=== PATIENT | female | born 1945 | race Caucasian/White ===

== ENCOUNTER 2017-06-03 17:28 | Emergency (ER) | payer MEDICARE, MEDICAID ==
[~2017-06-03] VITALS: Ht 165.1 cm; Wt 71.0 kg
[~2017-06-03 17:28] MED LIST: BUDE100T PO; FURO20TA PO; GLIP5 PO; LEVA500T PO; MAGN400T PO; METF500 PO; METO25CR PO; MORP60TA20 PO; PERC10TA27 PO; PLAV75TA PO; POTA20IN3 PO
[2017-06-03 17:32] VITALS: BP 134/76; PULSE 74; RESP 24; TEMP 99.9; O2SAT 93
[2017-06-03] MEDS ORDERED: PERC10TA27 PO (17:56)
[2017-06-03] MEDS ORDERED: MORP1TAB26 PO (17:56)
[2017-06-03] MEDS ORDERED: POTA-163 PO (17:56)
[2017-06-03] MEDS ORDERED: AZIT250T3 PO (17:56)
[2017-06-03] MEDS ORDERED: ATOR10TA15 PO (17:56)
[2017-06-03] MEDS ORDERED: AMLO5TAB2 PO (17:56)
[2017-06-03] MEDS ORDERED: ASPI-516 CHEW (17:56)
[2017-06-03] MEDS ORDERED: METO1TAB42 PO (17:56)
[2017-06-03] MEDS ORDERED: TIOT12.9 INH (17:56)
[2017-06-03] MEDS ORDERED: SODIUM CHLORIDE 0.9% FLUSH 10 ML FLUSH IVF PRN (18:00)
[2017-06-03] MEDS ORDERED: predniSONE 20 MG TAB PO ONE (18:00)
[2017-06-03] MEDS: RESP: ALBUTEROL 2.5 MG/IPRATROPIUM 0.5 MG NEB (SCH) INH ×2 (18:09→18:10)
--- NOTE | 2017-06-03 18:15 | RADRPT ---
EXAM DATE/TIME: 06/03/2017 18:04 [place] COMPARISON: No previous studies available for comparison. INDICATIONS : Short of breath, cough MEDICAL HISTORY : Chronic obstructive pulmonary disease. SURGICAL HISTORY : CABG. ENCOUNTER: Initial ACUITY: 1 day PAIN SCORE: 0/10 LOCATION: Bilateral chest FINDINGS: PA and lateral views of the chest demonstrate the lungs to be hyperaerated without evidence of mass, infiltrate or effusion. The cardiomediastinal contours are unremarkable. Status post CABG. Kyphosis and degenerative changes thoracic spine. Osseous structures are intact. CONCLUSION: 1. Hyperinflation which can be seen with COPD. 2. Status post CABG. Francisco Javier Clement MD on June 03, 2017 at 18:12 Board Certified Radiologist. This report was verified electronically.
[2017-06-03 18:17] VITALS: O2SAT 95
--- NOTE | 2017-06-03 18:21 | PD ---
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 Patient went to her primary care physician Dr. Davison has been taking azithromycin. Treatments at home, no relief. Denies any chest pain, denies any fevers, endorses dry cough. No nausea no vomiting. States symptoms are gradually worsening, moderate in severity, associated signs symptoms and context as above. PFSH Past Medical History Hx Anticoagulant Therapy: Yes Arthritis: Yes Asthma: No Autoimmune Disease: No Blood Disorders: No Heart Rhythm Problems: No Cancer: No Cardiac Catheterization: Yes Cardiovascular Problems: Yes (htn on meds, 5 vessel bypass, [place] x 3) High Cholesterol: Yes Chest Pain: Yes Congestive Heart Failure: No COPD: Yes Coronary Artery Disease: Yes Diabetes: Yes Patient Takes Glucophage: No Diminished Hearing: No Endocrine: Yes Gastrointestinal Disorders: No Genitourinary: No Hiatal Hernia: Yes Hypertension: Yes Immune Disorder: No Implanted Vascular Access Dvce: Yes Musculoskeletal: Yes (osteoporosis) Neurologic: No Psychiatric: No Reproductive: No Respiratory: Yes (copd on oxygen) Pneumonia: Yes Sleep Apnea: No Thyroid Disease: No Tetanus Vaccination: Unknown ?: Not Menopausal: Yes Past Surgical History Abdominal Surgery: Yes (appendectomy, cholecystectomy) Appendectomy: Yes Body Medical Devices: sternal wires from cabg Cardiac Surgery: Yes (5 WAY BIPASS) Cholecystectomy: Yes Coronary Artery Bypass Graft: Yes (X5) Ear Surgery: No Endocrine Surgery: Yes (THYROID) Eye Surgery: No Genitourinary Surgery: No Gynecologic Surgery: Yes (x2 regular ) Neurologic Surgery: No Oral Surgery: Yes (lower dental implants) Thoracic Surgery: Yes Other Surgery: Yes Family History Family Myocardial Infarction: Yes Social History Alcohol Use: No Tobacco Use: Yes (1 PPD) Substance Use: No Allergies-Medications (Allergen,Severity, Reaction): Coded Allergies: penicillin G (Unverified Allergy, Severe, Anaphylaxis, 06/03/17) Reported Meds & Prescriptions Reported Meds & Active Scripts Active Prednisone 20 Mg Tab 60 Mg PO DAILY 5 Days Reported Percocet (Oxycodone-Acetaminophen) 10-325 mg Tab 1 Tab PO Q6H PRN Morphine ER (Morphine Sulfate) 60 Mg Tab 60 Mg PO Q8H Azithromycin 250 Mg Tab 250 Mg PO DIRECTED Take 2 tabs (500 mg) on day 1 then 1 tab daily x 4 days. Aspirin 81 Mg Chew 81 Mg CHEW DAILY Atorvastatin (Atorvastatin Calcium) 10 Mg Tab 10 Mg PO HS Spiriva Respimat Inh (Tiotropium Inh) 2.5 Mcg/Act Aero 2 Puff INH DAILY 2.5 mcg = 1 inhalation Potassium Chloride ER (Potassium Chloride) 20 Meq Tab 20 Meq PO DAILY Amlodipine (Amlodipine Besylate) 5 Mg Tab 5 Mg PO DAILY Metoprolol Succinate ER 24 HR (Metoprolol Succinate) 25 Mg Tab 25 Mg PO DAILY Review of Systems Except as stated in HPI: all other systems reviewed are Neg Physical Exam Narrative GENERAL: Well-developed, well-nourished, speaking in lengthy phrases in short sentences. SKIN: Focused skin assessment warm/dry. HEAD: Atraumatic. Normocephalic. EYES: Pupils equal and round. No scleral icterus. No injection or drainage. ENT: No nasal bleeding or discharge. Mucous membranes pink and moist. TMs clear bilaterally, oropharynx clear moist. NECK: Trachea midline. No JVD. CARDIOVASCULAR: Regular rate and rhythm. No murmur appreciated. RESPIRATORY: No accessory muscle use. Clear to auscultation. Decreased breath sounds throughout all lung amaya but they are clear. Tachypneic, wearing her 2 L nasal cannula. GASTROINTESTINAL: Abdomen soft, non-tender, nondistended. Hepatic and splenic margins not palpable. MUSCULOSKELETAL: No obvious deformities. No clubbing. No cyanosis. No edema. NEUROLOGICAL: Awake and alert. No obvious cranial nerve deficits. Motor grossly within normal limits. Normal speech. PSYCHIATRIC: Appropriate mood and affect; insight and judgment normal. Data Data Last Documented VS Vital Signs Date Time Temp Pulse Resp B/P (MAP) Pulse Ox O2 Delivery O2 Flow Rate FiO2 06/03/17 19:19 98.9 88 19 130/73 (92) 95 Nasal Cannula 2.00 Orders Orders Electrocardiogram (06/03/17 17:52) Basic Metabolic Panel (Bmp) (06/03/17 17:52) Complete Blood Count With Diff (06/03/17 17:52) Chest, Pa & Lat (06/03/17 17:52) Ecg Monitoring (06/03/17 17:52) Iv Access Insert/Monitor (06/03/17 17:52) Oximetry (06/03/17 17:52) Oxygen Administration (06/03/17 17:52) Prednisone (Deltasone) (06/03/17 18:00) Albuterol-Ipratropium Neb (Duoneb Neb) (06/03/17 18:00) Sodium Chloride 0.9% Flush (Ns Flush) (06/03/17 18:00) Resp Blood Gas Venous (06/03/17 ) Blood Gas Venous (Vbg) (06/03/17 18:12) Ed Discharge Order (06/03/17 19:16) Labs Laboratory Tests Test 06/03/17 18:12 06/03/17 18:24 Blood Gas Puncture Site IV Blood Gas Patient Temperature 98.6 Venous Blood pH 7.39 Venous Blood Partial Pressure CO2 54 mmHg Venous Blood Partial Pressure O2 45 mmHg Venous Blood HCO3 32 mmol/L Venous Blood Oxygen Saturation 79 % Venous Blood Oxygen Content 17.4 Vol % Venous Blood Base Excess 6.8 mmol/L Oxygen Delivery Device NASAL CANNULA Blood Gas Liter Flow 2 L/M White Blood Count 8.7 TH/MM3 Red Blood Count 5.41 MIL/MM3 Hemoglobin 15.1 GM/DL Hematocrit 46.8 % Mean Corpuscular Volume 86.6 FL Mean Corpuscular Hemoglobin 27.9 PG Mean Corpuscular Hemoglobin Concent 32.2 % Red Cell Distribution Width 12.6 % Platelet Count 184 TH/MM3 Mean Platelet Volume 7.6 FL Neutrophils (%) (Auto) 76.3 % Lymphocytes (%) (Auto) 11.4 % Monocytes (%) (Auto) 7.8 % Eosinophils (%) (Auto) 1.1 % Basophils (%) (Auto) 3.4 % Neutrophils # (Auto) 6.6 TH/MM3 Lymphocytes # (Auto) 1.0 TH/MM3 Monocytes # (Auto) 0.7 TH/MM3 Eosinophils # (Auto) 0.1 TH/MM3 Basophils # (Auto) 0.3 TH/MM3 CBC Comment DIFF FINAL Differential Comment Blood Urea Nitrogen 10 MG/DL Creatinine 0.69 MG/DL Random Glucose 136 MG/DL Calcium Level 8.8 MG/DL Sodium Level 135 MEQ/L Potassium Level 4.1 MEQ/L Chloride Level 100 MEQ/L Carbon Dioxide Level 30.5 MEQ/L Anion Gap 5 MEQ/L Estimat Glomerular Filtration Rate 84 ML/MIN MDM Medical Decision Making Medical Screen Exam Complete: Yes Emergency Medical Condition: Yes Differential Diagnosis URI, pneumonia, COPD exacerbation. Narrative Course Patient roomed in emergency department, no acute acidosis on VBG, quite responsive to DuoNeb therapy in the emergency department, she is feeling much better like to go home. Chest x-ray clear., Basic labs are unremarkable. She is maintain saturations at 94% plus on her 2 L nasal cannula since duo nebs. Discussed with her symptomatic management follow-up with her primary care physician and return to ED criteria. Will be placed on steroid course. Finish azithromycin until gone. She is stable for discharge. Diagnosis Primary Impression: COPD exacerbation Additional Instructions: Take your azithromycin until gone. Follow up with Dr. Davison this week. Return to ED as needed for worsening SOB or other concerns. Med/Other Pt SpecificInfo: Prescription(s) given Scripts Prednisone (Prednisone) 20 Mg Tab 60 MG PO DAILY for 5 Days, #15 TAB 0 Refills Prov: Darnell Henriquez MD 06/03/17 Disposition: 01 DISCHARGE HOME Condition: Stable Darnell Henriquez MD Jun 03, 2017 18:21
[2017-06-03 18:22] VITALS: O2SAT 95
[2017-06-03 18:35] LABS: AUTOMATED NEUTROPHIL # 6.6 TH/MM3 (1.8-7.7); BASOPHIL # 0.3 TH/MM3 (0-0.2); BASOPHIL % 3.4 % (0.0-2.0); EOSINOPHIL # 0.1 TH/MM3 (0-0.4); EOSINOPHIL % 1.1 % (0.0-4.0); HEMATOCRIT 46.8 % (35.0-46.0); HEMOGLOBIN 15.1 GM/DL (11.6-15.3); LYMPH % 11.4 % (9.0-44.0); MEAN CELL VOLUME 86.6 FL (80.0-100.0); MEAN CORPUSCULAR HEMOGLOBIN 27.9 PG (27.0-34.0); MEAN CORPUSCULAR HGB CONC 32.2 % (32.0-36.0); MEAN PLATELET VOLUME 7.6 FL (7.0-11.0); MONO % 7.8 % (0.0-8.0); MONOCYTE # 0.7 TH/MM3 (0-0.9); NEUT % 76.3 % (16.0-70.0); PLATELET COUNT 184 TH/MM3 (150-450); RED BLOOD COUNT 5.41 MIL/MM3 (4.00-5.30); RED CELL DISTRIBUTION WIDTH 12.6 % (11.6-17.2); WHITE BLOOD COUNT 8.7 TH/MM3 (4.0-11.0)
[2017-06-03 18:41] LABS: CALCIUM 8.8 MG/DL (8.5-10.1)
[2017-06-03 18:42] LABS: BICARBONATE 30.5 MEQ/L (21.0-32.0)
[2017-06-03 18:45] LABS: CREATININE 0.69 MG/DL (0.50-1.00)
[2017-06-03 18:55] VITALS: BP 138/65; PULSE 87; RESP 20; O2SAT 95
[2017-06-03] MEDS ORDERED: PRED20 PO (19:16)
[2017-06-03 19:19] VITALS: BP 130/73; TEMP 98.9
--- NOTE | 2017-06-04 19:45 | EKG ---
Date Performed: 06/03/2017 Time Performed: 18:13:26 PTAGE: 72 years EKG: Sinus rhythm NONSPECIFIC T-WAVE ABNORMALITY BORDERLINE ECG PREVIOUS TRACING : 12/30/2015 13.40 Since previous tracing, no significant change noted DOCTOR: Beckie Rucker Interpretating Date/Time 06/04/2017 19:43:43
== END 2017-06-03 19:28 | disposition home or self-care (01) ==
LOC: PHED 17:28
DX: J44.1 Chronic obstructive pulmonary disease with (acute) exacerbation (principal); I25.2 Old myocardial infarction; I10 Essential (primary) hypertension; E78.00 Pure hypercholesterolemia, unspecified; I25.10 Atherosclerotic heart disease of native coronary artery without angina pectoris; E11.9 Type 2 diabetes mellitus without complications; F17.210 Nicotine dependence, cigarettes, uncomplicated; Z99.81 Dependence on supplemental oxygen; Z79.01 Long term (current) use of anticoagulants; Z95.1 Presence of aortocoronary bypass graft; Z88.0 Allergy status to penicillin
CPT/HCPCS: 71046; 80048; 82805; 85025; 93005; 94640; 94664; 99285; J7512

== ENCOUNTER 2017-10-07 19:02 | Inpatient (IN) | payer MEDICARE, MEDICAID ==
[2017-10-07] VITALS (21 sets, daily range): BP systolic 97–201; BP diastolic 71–120; PULSE 76–115; RESP 20–32; TEMP 98.1–99.5; O2SAT 78–100
[~2017-10-07 19:02] MED LIST changes: +AMLO5TAB2 PO; +ASPI-516 CHEW; +ATOR10TA15 PO; +AZIT250T3 PO; -BUDE100T PO; -FURO20TA PO; -GLIP5 PO; -LEVA500T PO; -MAGN400T PO; -METF500 PO; +METO1TAB42 PO; -METO25CR PO; +MORP1TAB26 PO; -MORP60TA20 PO; -PLAV75TA PO; +POTA-163 PO; -POTA20IN3 PO; +PRED20 PO; +TIOT12.9 INH
--- NOTE | 2017-10-07 19:13 | PD ---
HPI Chief Complaint: Respiratory Symptoms Time Seen by Provider: 19:10 Travel History International Travel<30 days: No Contact w/Intl Traveler<30days: No Traveled to known affect area: No History of Present Illness HPI Patient was rushed in by private vehicle, family member brought her in complaining of severe shortness of breath, not improved by her own home nebulizers, or her home oxygen. Per family member this started about 30-45 minutes prior to arrival and had a sudden onset of severity. According to family she was not complaining of any chest pain or anything along those lines.... However she had been short of breath more than usual over the past 2 days... unable to obtain any further history due to the severity of condition per patient PCP is Dr. Davison Past medical history significant for dental implants, hypertension, 5 vessel CABG bypass, [place] 3, hypercholesterolemia, hypertension, COPD oxygen dependent, pneumonia, sleep apnea, hiatal hernia, appendectomy, cholecystectomy, hypothyroidism, diabetes and currently smokes 1 pack a day. PFSH Past Medical History Hx Anticoagulant Therapy: Yes Arthritis: Yes Asthma: No Autoimmune Disease: No Blood Disorders: No Heart Rhythm Problems: No Cancer: No Cardiac Catheterization: Yes Cardiovascular Problems: Yes (htn on meds, 5 vessel bypass, [place] x 3) High Cholesterol: Yes Chest Pain: Yes Congestive Heart Failure: No COPD: Yes Coronary Artery Disease: Yes Diabetes: Yes Diminished Hearing: No Endocrine: Yes Gastrointestinal Disorders: No Genitourinary: No Hiatal Hernia: Yes Hypertension: Yes Immune Disorder: No Implanted Vascular Access Dvce: Yes Musculoskeletal: Yes (osteoporosis) Neurologic: No Psychiatric: No Reproductive: No Respiratory: Yes (copd on oxygen) Pneumonia: Yes Sleep Apnea: No Thyroid Disease: No Menopausal: Yes Past Surgical History Abdominal Surgery: Yes (appendectomy, cholecystectomy) Appendectomy: Yes Body Medical Devices: sternal wires from cabg Cardiac Surgery: Yes (5 WAY BIPASS) Cholecystectomy: Yes Coronary Artery Bypass Graft: Yes (X5) Ear Surgery: No Endocrine Surgery: Yes (THYROID) Eye Surgery: No Genitourinary Surgery: No Gynecologic Surgery: Yes (x2 regular ) Neurologic Surgery: No Oral Surgery: Yes (lower dental implants) Thoracic Surgery: Yes Other Surgery: Yes Social History Alcohol Use: No Tobacco Use: Yes (1 PPD) Substance Use: No Allergies-Medications (Allergen,Severity, Reaction): Coded Allergies: penicillin G (Unverified Allergy, Severe, Anaphylaxis, 06/03/17) Reported Meds & Prescriptions Reported Meds & Active Scripts Active Prednisone 20 Mg Tab 60 Mg PO DAILY 5 Days Reported Percocet (Oxycodone-Acetaminophen) 10-325 mg Tab 1 Tab PO Q6H PRN Morphine ER (Morphine Sulfate) 60 Mg Tab 60 Mg PO Q8H Azithromycin 250 Mg Tab 250 Mg PO DIRECTED Take 2 tabs (500 mg) on day 1 then 1 tab daily x 4 days. Aspirin 81 Mg Chew 81 Mg CHEW DAILY Atorvastatin (Atorvastatin Calcium) 10 Mg Tab 10 Mg PO HS Spiriva Respimat Inh (Tiotropium Inh) 2.5 Mcg/Act Aero 2 Puff INH DAILY 2.5 mcg = 1 inhalation Potassium Chloride ER (Potassium Chloride) 20 Meq Tab 20 Meq PO DAILY Amlodipine (Amlodipine Besylate) 5 Mg Tab 5 Mg PO DAILY Metoprolol Succinate ER 24 HR (Metoprolol Succinate) 25 Mg Tab 25 Mg PO DAILY Review of Systems ROS Limitations: Clinical Condition General / Constitutional: No: Fever Eyes: No: Visual changes HENT: No: Headaches Cardiovascular: Positive: Tachycardia, Dyspnea on exertion, Other (Diaphoretic) Respiratory: Positive: Shortness of Breath, Wheezing Gastrointestinal: No: Abdominal Pain Genitourinary: No: Dysuria Musculoskeletal: No: Pain Skin: No Rash Neurologic: No: Weakness Psychiatric: No: Depression Endocrine: No: Polydipsia Hematologic/Lymphatic: No: Easy Bruising Physical Exam Exam Limitations: Clinical Condition Narrative GENERAL: Elderly female SKIN: Diffusely diaphoretic HEAD: Atraumatic. Normocephalic. EYES: Pupils equal and round. No scleral icterus. No injection or drainage. ENT: No nasal bleeding or discharge. Mucous membranes pink and moist. NECK: Trachea midline. No JVD. CARDIOVASCULAR: Regular rhythm with tachycardic rate RESPIRATORY: Tachypneic, tripoding, speaking half word dyspnea, intercostal no accessory muscle use. Very tight and very little tidal volume movement , bilateral wheezing GASTROINTESTINAL: Abdomen soft, non-tender, nondistended. Hepatic and splenic margins not palpable. MUSCULOSKELETAL: Extremities without clubbing, cyanosis, or edema. No obvious deformities. NEUROLOGICAL: Awake and alert. No obvious cranial nerve deficits. Motor grossly within normal limits. Five out of 5 muscle strength in the arms and legs. Normal speech. PSYCHIATRIC: Anxious and agitated Data Data Orders Orders Complete Blood Count With Diff (10/07/17 19:10) Comprehensive Metabolic Panel (10/07/17 19:10) B-Type Natriuretic Peptide (10/07/17 19:10) Act Partial Throm Time (Ptt) (10/07/17 19:10) Prothrombin Time / Inr (Pt) (10/07/17 19:10) Magnesium (Mg) (10/07/17 19:10) Ckmb (Isoenzyme) Profile (10/07/17 19:10) Troponin I (10/07/17 19:10) Arterial Blood Gas (Abg) (10/07/17 19:10) Urinalysis - C+S If Indicated (10/07/17 19:10) Influenzae A/B Antigen (10/07/17 19:10) Blood Culture (10/07/17 19:10) Iv Access Insert/Monitor (10/07/17 19:10) Electrocardiogram (10/07/17 19:10) Ecg Monitoring (10/07/17 19:10) Oximetry (10/07/17 19:10) Oxygen Administration (10/07/17 19:10) Chest, Single Ap (10/07/17 19:10) Sodium Chloride 0.9% Flush (Ns Flush) (10/07/17 19:15) Methylprednisolone So Succ Inj (Solumedr (10/07/17 19:15) Albuterol Neb (Albuterol Neb) (10/07/17 19:15) Magnesium Sulfate 1 Gm Premix (Magnesium (10/07/17 19:15) Terbutaline Inj (Brethine Inj) (10/07/17 19:15) Etomidate Inj (Amidate Inj) (10/07/17 19:15) Succinylcholine Inj (Quelicin Inj) (10/07/17 19:15) Propofol 1000 Mg/100 Ml Inj (Diprivan 10 (10/07/17 19:15) Sepsis Workup Initiated (10/07/17 ) Lactic Acid Sepsis Protocol (10/07/17 19:37) Influenzae A/B Antigen (10/07/17 19:37) Blood Culture (10/07/17 19:37) Sputum Culture And Gram Stain (10/07/17 19:37) Pneumococcal Urinary Antigen (10/07/17 19:37) Legionella Urinary Antigen (10/07/17 19:37) Aztreonam Inj (Azactam Inj) (10/07/17 19:37) Levofloxacin 750 Mg Premix Inj (Levaquin (10/07/17 19:37) Urinary Catheter Insert/Apply (10/07/17 19:37) Minor-Gastric Tube Insert/Mon (10/07/17 19:37) CKMB (10/07/17 19:40) CKMB% (10/07/17 19:40) Admit Order (Ed Use Only) (10/07/17 20:52) Albuterol Neb (Albuterol Neb) (10/07/17 21:00) Labs Laboratory Tests Test 10/07/17 19:40 10/07/17 20:20 10/07/17 20:34 White Blood Count 17.8 TH/MM3 Red Blood Count 6.32 MIL/MM3 Hemoglobin 17.5 GM/DL Hematocrit 54.0 % Mean Corpuscular Volume 85.4 FL Mean Corpuscular Hemoglobin 27.7 PG Mean Corpuscular Hemoglobin Concent 32.5 % Red Cell Distribution Width 13.6 % Platelet Count 260 TH/MM3 Mean Platelet Volume 8.6 FL Neutrophils (%) (Auto) 62.7 % Lymphocytes (%) (Auto) 27.5 % Monocytes (%) (Auto) 6.7 % Eosinophils (%) (Auto) 1.7 % Basophils (%) (Auto) 1.4 % Neutrophils # (Auto) 11.2 TH/MM3 Lymphocytes # (Auto) 4.9 TH/MM3 Monocytes # (Auto) 1.2 TH/MM3 Eosinophils # (Auto) 0.3 TH/MM3 Basophils # (Auto) 0.2 TH/MM3 CBC Comment DIFF FINAL Differential Comment Prothrombin Time 10.0 SEC Prothromb Time International Ratio 1.0 RATIO Activated Partial Thromboplast Time 21.0 SEC Blood Urea Nitrogen 9 MG/DL Creatinine 1.10 MG/DL Random Glucose 201 MG/DL Total Protein 8.4 GM/DL Albumin 3.8 GM/DL Calcium Level 9.7 MG/DL Magnesium Level 2.7 MG/DL Alkaline Phosphatase 153 U/L Aspartate Amino Transf (AST/SGOT) 23 U/L Alanine Aminotransferase (ALT/SGPT) 14 U/L Total Bilirubin 0.7 MG/DL Sodium Level 139 MEQ/L Potassium Level 4.6 MEQ/L Chloride Level 102 MEQ/L Carbon Dioxide Level 25.2 MEQ/L Anion Gap 12 MEQ/L Estimat Glomerular Filtration Rate 49 ML/MIN Total Creatine Kinase 117 U/L Creatine Kinase MB 1.6 NG/ML Troponin I LESS THAN 0.02 NG/ML B-Type Natriuretic Peptide 220 PG/ML Urine Color YELLOW Urine Turbidity CLEAR Urine pH 6.0 Urine Specific [place] GREATER/EQUAL 1.030 Urine Protein 100 mg/dL Urine Glucose (UA) 100 mg/dL Urine Ketones NEG mg/dL Urine Occult Blood SMALL Urine Nitrite NEG Urine Bilirubin NEG Urine Urobilinogen 1.0 MG/DL Urine Leukocyte Esterase NEG Urine RBC 3-5 /hpf Urine WBC 6-8 /hpf Urine Squamous Epithelial Cells 0-5 /hpf Urine Bacteria NONE /hpf Urine Coarse Granular Casts 0-2 /lpf Microscopic Urinalysis Comment CATH-CULT NOT IND Lactic Acid Level 2.6 mmol/L MDM Medical Decision Making Medical Screen Exam Complete: Yes Emergency Medical Condition: Yes Medical Record Reviewed: Yes Interpretation(s) Pulse ox with excellent pleth wave was reading 79-80% on 2 L nasal cannula, this is consistent with severe hypoxemic respiratory failure EKG #1 had some baseline motion artifact is difficult to truly interpret with a wandering baseline whether there were any true ST elevations or not, however he was noted to have a sinus rhythm with sinus arrhythmia and some inverted T waves on inferior leads II, III and aVF, a repeat EKG will be performed after patient gets intubated EKG #2 shows a sinus tachycardia 122, incomplete right bundle branch block pattern, negative sgarbossa's criteria, persistent T-wave inversions inferiorly on 2 3 and aVF ABG performed about an hour after intubation. Shows pH of 7.28, PCO2 59.9, PaO2 of 430 and this was on PRBC 18 550 tidal volume 5 of PEEP 100% FiO2.... This findings were consistent with hypercapnic failure and respiratory acidosis , will increase respiratory rate to 22 and ensure that the i.e. ratio is at least 1:4 to minimize volume stacking Differential Diagnosis Hypoxemic respiratory failure versus hypercapnic respiratory failure versus STEMI versus non-STEMI versus pneumonia versus sepsis Narrative Course CBC shows leukocytosis without any left shift however the leukocytosis 18,000. H&H of 17.5/54 shows hemoconcentration., Normal platelet count of 260,000 Coagulation profile is within normal limits Electrolytes are all within normal limits with the exception of GFR 49, grand glucose of 201, alkaline phosphatase of 153, which is not significant. Normal bilirubin normal liver functions. First set of cardiac enzymes negative, beta natruretic peptide 220 which is not consistent with severe CHF and he may be seen in blue bloater type of COPD patients. Lactic acid is currently pending Chest x-ray read by radiologist as COPD, diffuse interstitial prominence which may represent early congestion, satisfactory position of the endotracheal tube and left subclavian central catheter, mild cardiomegaly with evidence of prior CABG, and no evidence of any acute airspace disease or pneumothorax. Critical Care Narrative CRITICAL CARE NOTE: With evaluation of the patient, labs, EKG, receipt of radiologic studies, administration of medications, reevaluation the patient and discussion of the patient with the admitting physicians, the total critical care time was [60] minutes. Time to perform other separately billable procedures was not included in the critical care time. Procedures Procedure Narrative After the risks and benefits were discussed the following procedure was performed: Superior dentures removed prior to intubation, inferior dentures not present edentulous INTUBATION: The patient was put in optimal position for the procedure. Rapid sequence intubation was initiated by me using [20-] milligrams of etomidate IV and [-100] milligrams of [succ-] IV. The patient was intubated with a [7-5] cuffed endotracheal tube. Tube placement was confirmed by visualization of the tube and balloon passing through the cords, capnometry and subsequent chest x- ray. Breath sounds were equal and well aerated bilaterally postintubation. No breath sounds over stomach. Patient tolerated procedure well. Due to patient's critical clinical condition and inability to establish at least 2 working peripheral IVs by multiple nurse at times and with ultrasound- guided peripheral line placement, decision was made to start a left subclavian central line CENTRAL VENOUS LINE: The site was prepped with Betadine and sterilely draped. It was infiltrated with 1% lidocaine plain. The deep vein was cannulated using normal Seldinger technique. A triple lumen central line was placed in the left subclavian site and secured with simple interrupted suture. The site was sterilely dressed. The patient tolerated the procedure well. Diagnosis Primary Impression: acute hypoxemic respiraory failure s/p intubation Disposition: 70 TRANSFER TO OTHER FACILITY Hermes Rivera MD October 07, 2017 19:13
[2017-10-07] MEDS ORDERED: MAGNESIUM SULFATE 1 GM PREMIX 100 ML IV ONE (19:15)
[2017-10-07] MEDS ORDERED: methylPREDNISolone SOD SUCC 125 MG/2 ML VIAL IV PUSH ONE (19:15)
[2017-10-07] MEDS ORDERED: SODIUM CHLORIDE 0.9% FLUSH 10 ML FLUSH IVF PRN (19:15)
[2017-10-07] MEDS ORDERED: ETOMIDATE 20 MG/10 ML VIAL IV PUSH ONE (19:15)
[2017-10-07] MEDS ORDERED: SUCCINYLCHOLINE CHLORIDE 100 MG/5 ML SYRINGE IV PUSH ONE (19:15)
[2017-10-07] MEDS ORDERED: TERBUTALINE INJ 1 MG/ML AMP SQ ONE (19:15)
[2017-10-07] MEDS ORDERED: LEVOFLOXACIN 750 MG PREMIX INJ 150 ML IV STA (19:37)
[2017-10-07] MEDS ORDERED: AZTREONAM INJ 2,000 MG in SODIUM CHLORIDE 0.9% INJ 100 ML IV STA (19:37)
[2017-10-07] MEDS: PROPOFOL 1000 MG/100 ML INJ 100 ML IV PRN ×2 (19:38→22:32)
[2017-10-07] MEDS: RESP: ALBUTEROL 2.5 MG/3 ML NEB (SCH) INH ×3 (19:45→21:32)
[2017-10-07 19:54] LABS: AUTOMATED NEUTROPHIL # 11.2 TH/MM3 (1.8-7.7); BASOPHIL # 0.2 TH/MM3 (0-0.2); BASOPHIL % 1.4 % (0.0-2.0); EOSINOPHIL # 0.3 TH/MM3 (0-0.4); EOSINOPHIL % 1.7 % (0.0-4.0); HEMOGLOBIN 17.5 GM/DL (11.6-15.3); LYMPH % 27.5 % (9.0-44.0); LYMPHOCYTE # 4.9 TH/MM3 (1.0-4.8); MEAN CELL VOLUME 85.4 FL (80.0-100.0); MEAN CORPUSCULAR HEMOGLOBIN 27.7 PG (27.0-34.0); MEAN CORPUSCULAR HGB CONC 32.5 % (32.0-36.0); MEAN PLATELET VOLUME 8.6 FL (7.0-11.0); MONO % 6.7 % (0.0-8.0); MONOCYTE # 1.2 TH/MM3 (0-0.9); NEUT % 62.7 % (16.0-70.0); PLATELET COUNT 260 TH/MM3 (150-450); RED BLOOD COUNT 6.32 MIL/MM3 (4.00-5.30); RED CELL DISTRIBUTION WIDTH 13.6 % (11.6-17.2); WHITE BLOOD COUNT 17.8 TH/MM3 (4.0-11.0)
[2017-10-07 20:01] LABS: CHLORIDE 102 MEQ/L (98-107); SODIUM (NA) 139 MEQ/L (136-145)
[2017-10-07 20:04] LABS: ALBUMIN 3.8 GM/DL (3.4-5.0); BICARBONATE 25.2 MEQ/L (21.0-32.0); CALCIUM 9.7 MG/DL (8.5-10.1); GLUCOSE,RANDOM 201 MG/DL (74-106); MAGNESIUM 2.7 MG/DL (1.5-2.5)
[2017-10-07 20:05] LABS: BLOOD UREA NITROGEN 9 MG/DL (7-18)
[2017-10-07 20:07] LABS: ALT (GPT) 14 U/L (10-53)
[2017-10-07 20:08] LABS: AST (GOT) 23 U/L (15-37); GLOMERULAR FILTRATION RATE 49 ML/MIN (>89)
[2017-10-07 20:09] LABS: TOTAL BILIRUBIN ADULT 0.7 MG/DL (0.2-1.0); TOTAL PROTEIN 8.4 GM/DL (6.4-8.2)
[2017-10-07 20:10] LABS: ALKALINE PHOSPHATASE 153 U/L (45-117)
[2017-10-07 20:13] LABS: TROPONIN I LESS THAN 0.02 NG/ML (0.02-0.05)
--- NOTE | 2017-10-07 20:44 | RADRPT ---
EXAM DATE: 10/07/2017 8:39 PM EDT AGE/SEX: 72 years / Female INDICATIONS: Shortness of breath. Post Intubation, central line placement. CLINICAL DATA: This is the patient's initial encounter. Patient reports that signs and symptoms have been present for 1 day and indicates a pain score of 0/10. MEDICAL/SURGICAL HISTORY: Chronic obstructive pulmonary disease. CABG. COMPARISON: [facility] [place], CHEST SINGLE AP, 12/30/2015. . FINDINGS: Heart is mildly enlarged. Postsurgical changes from prior CABG are noted. Lungs are hyperinflated. There is diffuse interstitial prominence. There is no evidence of consolidat ing airspace disease. Endotracheal and left subclavian central venous catheter are in place and in good position. Osseous structures appear intact CONCLUSION: 1. COPD 2. Diffuse interstitial prominence which may represent early congestion. 3. Satisfactory position of endotracheal tube and left subclavian central venous catheter. 4. Mild cardiomegaly with evidence of prior CABG. 5. No evidence of acute airspace disease or pneumothorax. Electronically signed by: Jose Cortes MD 10/07/2017 8:42 PM EDT
[2017-10-07 21:06] LABS: LACTIC ACID SEPSIS PROTOCOL 2.6 mmol/L (0.4-2.0)
[2017-10-07 21:26] LABS: BILIRUBIN, URINE NEG (NEG); BLOOD, URINE SMALL (NEG); GLUCOSE,URINE 100 mg/dL (NEG); KETONE, URINE NEG (NEG); NITRITE,URINE NEG (NEG); URINE COLOR YELLOW (YELLW/STRAW); URINE LEUKOCYTE ESTERASE NEG (NEG)
[2017-10-07 21:34] LABS: SQUAMOUS EPITHELIAL CELL URINE 0-5 /hpf (0-5)
[2017-10-07] MEDS ORDERED: CHLORHEXIDINE GLUCONATE 2 % 1 PACK (2 CLOTHS)(extra cloths) TOPICAL PRN (23:15)
[2017-10-08] VITALS (25 sets, daily range): BP systolic 115–200; BP diastolic 64–101; PULSE 66–106; RESP 21–81; TEMP 97.6–99.7; O2SAT 96–100
[2017-10-08] MEDS ORDERED: SENNOSIDES 8.6 MG TAB PO PRN (01:00)
[2017-10-08] MEDS ORDERED: LORazepam 2 MG/ML VIAL IV PUSH PRN (01:00)
[2017-10-08] MEDS ORDERED: HYDROmorphone HCL PF 2 MG/ML VIAL IV PUSH PRN (01:00)
[2017-10-08] MEDS ORDERED: LACTULOSE SYRUP 20 GM/30 ML CUP PO PRN (01:00)
[2017-10-08] MEDS ORDERED: BISACODYL 10 MG SUPP RECTAL PRN (01:00)
[2017-10-08] MEDS ORDERED: NURSING INFORMATION XX SCH (01:00)
[2017-10-08] MEDS ORDERED: MAGNESIUM HYDROXIDE SUSP 30 ML CUP PO PRN (01:00)
[2017-10-08] MEDS ORDERED: HEPARIN SODIUM - SQ 10,000 UNITS/ML VIAL SQ SCH (01:00)
[2017-10-08] MEDS ORDERED: SODIUM CHLORIDE 0.9% FLUSH 10 ML FLUSH IV FLUSH PRN (01:00)
[2017-10-08] MEDS ORDERED: CHLORHEXIDINE GLUCONATE 2 % 1 PACK (2 CLOTHS) TOP PRN (01:00)
[2017-10-08] MEDS ORDERED: RESP: ALBUTEROL 2.5 MG/IPRATROPIUM 0.5 MG NEB (PRN) INH (01:00)
[2017-10-08] MEDS ORDERED: ACETAMINOPHEN 325 MG TAB PO PRN (01:00)
[2017-10-08] MEDS: AZITHROMYCIN INJ 500 MG in SODIUM CHLOR 0.9% 250 ML INJ 250 ML IV SCH (02:00)
[2017-10-08] MEDS: SODIUM CHLOR 0.9% 1000 ML INJ 1,000 ML IV SCH ×4 (02:22→22:59)
[2017-10-08] MEDS: CEFEPIME INJ 2,000 MG in SODIUM CHLORIDE 0.9% INJ 100 ML IV SCH ×3 (02:23→20:22)
[2017-10-08] MEDS: niCARdipine 25 MG/NS 250 ML Vial2Bag or IV room IV PRN ×6 (02:38→22:58)
--- NOTE | 2017-10-08 02:50 | RADRPT ---
EXAM DATE: 10/08/2017 2:44 AM EDT AGE/SEX: 72 years / Female INDICATIONS: Verify NG tube placement CLINICAL DATA: This is the patient's initial encounter. Patient reports that signs and symptoms have been present for 1 day and indicates a pain score of Nonresponsive. MEDICAL/SURGICAL HISTORY: Cardiovascular disease. [place] CABG. Appendectomy. Appendectomy. COMPARISON: No prior exams available for comparison. FINDINGS: The abdominal bowel The bowel gas is nonspecific. There are no signs of obstruction or free air for technique. No definite calcified stones are identified for technique. NG tube is present with tip in the stomach. There is moderate amount of stool throughout the colon. CONCLUSION: Tip of the NG tube inside the stomach. Electronically signed by: Rick Giraldo MD 10/08/2017 2:49 AM EDT
[2017-10-08] MEDS: RESP: ALBUTEROL 2.5 MG/IPRATROPIUM 0.5 MG NEB (SCH) INH ×6 (03:35→23:53)
[2017-10-08] MEDS: CHLORHEXIDINE GLUCONATE 2 % 1 PACK (2 CLOTHS)(taper/protocol) TOPICAL SCH (03:38)
[2017-10-08] MEDS: CHLORHEXIDINE GLUCONATE 2 % 1 PACK (2 CLOTHS) TOP SCH (03:38)
[2017-10-08] MEDS ORDERED: HEPARIN SODIUM - IV 10,000 UNITS/10 ML VIAL IV ONE (03:45)
[2017-10-08] MEDS ORDERED: NITROGLYCERIN-D5W 50 MG/250 ML 250 ML IV PRN (03:45)
[2017-10-08] MEDS: HEPARIN-D5W 25,000 U/250 ML 250 ML IV PRN (04:04)
[2017-10-08] MEDS: methylPREDNISolone SOD SUCC 40 MG/1 ML VIAL IV PUSH SCH ×3 (04:04→20:23)
[2017-10-08] MEDS: PROPOFOL 1000 MG/100 ML INJ 100 ML IV PRN ×4 (04:06→20:27)
[2017-10-08 05:09] LABS: HEMOGLOBIN 15.4 GM/DL (11.6-15.3); MEAN CELL VOLUME 84.2 FL (80.0-100.0); MEAN CORPUSCULAR HEMOGLOBIN 27.5 PG (27.0-34.0); MEAN CORPUSCULAR HGB CONC 32.7 % (32.0-36.0); MEAN PLATELET VOLUME 8.1 FL (7.0-11.0); PLATELET COUNT 227 TH/MM3 (150-450); RED BLOOD COUNT 5.58 MIL/MM3 (4.00-5.30); RED CELL DISTRIBUTION WIDTH 13.3 % (11.6-17.2); WHITE BLOOD COUNT 12.4 TH/MM3 (4.0-11.0)
[2017-10-08 05:23] LABS: INTERNATIONAL NORMALIZED RATIO 1.2 RATIO
[2017-10-08] MEDS ORDERED: ASPIRIN 81 MG CHEW TAB OG-TUBE ONE (07:00)
--- NOTE | 2017-10-08 07:37 | RADRPT ---
EXAM DATE: 10/08/2017 7:00 AM EDT AGE/SEX: 72 years / Female INDICATIONS: Shortness of breath, possible pulmonary disease. CLINICAL DATA: This is the patient's subsequent encounter. Patient reports that signs and symptoms h ave been present for 1 day and indicates a pain score of 0/10. MEDICAL/SURGICAL HISTORY: Cardiovascular disease. [place] CABG. Appendectomy. COMPARISON: . FINDINGS: A single AP view of the chest demonstrates cardiomegaly. Lungs are clear. Evidence of previous CABG. Endotracheal tube and left subclavian central line are unchanged in position. Nasogastric tube remove d. Osseous structures are intact. CONCLUSION: Stable chest. Cardiomegaly. Electronically signed by: Francisco Javier Clement MD 10/08/2017 7:35 AM EDT
--- NOTE | 2017-10-08 08:01 | EKG ---
Date Performed: 10/08/2017 Time Performed: 01:29:25 PTAGE: 72 years EKG: Sinus rhythm POSSIBLE LEFT ATRIAL ENLARGEMENT NONSPECIFIC ST DEPRESSION ABNORMAL ECG PREVIOUS TRACING : 10/07/2017 19.31 Compared to previous tracing, heart rate has slowed, left b undle branch block pattern is no longer evident. DOCTOR: Kenneth Bales Interpretating Date/Time 10/08/2017 08:01:38
--- NOTE | 2017-10-08 08:10 | EKG ---
Date Performed: 10/07/2017 Time Performed: 19:31:05 PTAGE: 72 years EKG: SINUS TACHYCARDIA BORDERLINE RIGHT AXIS DEVIATION NONSPECIFIC INTRAVENTRICULAR CONDUCTION D ELAY ABNORMAL ECG PREVIOUS TRACING : 06/03/2017 18.13 Compared to previous tracing, heart rate has increased, non specific intraventricular conduction delay is now evident. DOCTOR: Kenneth Bales Interpretating Date/Time 10/08/2017 08:08:51
[2017-10-08] MEDS: ARTIFICIAL TEARS OPTH SOLN 15 ML BTL EACH EYE SCH ×3 (09:00→18:00)
[2017-10-08] MEDS: TIOTROPIUM BROMIDE 18 MCG INH INH SCH (09:00)
[2017-10-08] MEDS ORDERED: METOPROLOL TARTRATE 25 MG TAB OG-TUBE SCH (09:00)
--- NOTE | 2017-10-08 09:10 | HHI.HP ---
[facility] Service Critical Care Medicine Primary Care Physician Yohan Davison MD Admission Diagnosis RESPIRATORY FAILURE S/P INTUBATION, COPD EXAC Diagnosis: Chief Complaint: Shortness of breath Travel History International Travel<30 Days: No Contact w/Intl Traveler <30 Da: No Traveled to Known Affected Are: No History of Present Illness HPI 72-year-old female who was rushed in by private vehicle, family member brought her in complaining of severe shortness of breath, not improved by her own home nebulizers, or her home oxygen. Per family member this started about 30-45 minutes prior to arrival and had a sudden onset of severity. According to family she was not complaining of any chest pain or anything along those lines.... However she had been short of breath more than usual over the past 2 days... unable to obtain any further history due to the severity of condition per patient conversation with the ER physician PCP is Dr. Davison Past medical history significant for dental implants, hypertension, 5 vessel CABG bypass, CO 3, hypercholesterolemia, hypertension, COPD oxygen dependent, pneumonia, sleep apnea, hiatal hernia, appendectomy, cholecystectomy, hypothyroidism, diabetes and currently smokes 1 pack a day. Patient developed worsening respiratory distress following arrival in the ER and was emergently intubated and placed on mechanical ventilation. She had a central line placed by ER physician [place]. Her repeat troponin came back greater than 40. Patient was transferred to [facility] ICU and cardiology consult was requested. When I evaluated patient following arrival to the ICU she was sedated with propofol, orally intubated on mechanical ventilation on a nicardipine drip for elevated blood pressure. She had been started on heparin for anticoagulation in view of acute CO. PFSH Past Medical History Hx Anticoagulant Therapy: Yes Arthritis: Yes Asthma: No Autoimmune Disease: No Blood Disorders: No Heart Rhythm Problems: No Cancer: No Cardiac Catheterization: Yes Cardiovascular Problems: Yes (htn on meds, 5 vessel bypass, CO x 3) High Cholesterol: Yes Chest Pain: Yes Congestive Heart Failure: No COPD: Yes Coronary Artery Disease: Yes Diabetes: Yes Diminished Hearing: No Endocrine: Yes Gastrointestinal Disorders: No Genitourinary: No Hiatal Hernia: Yes Hypertension: Yes Immune Disorder: No Implanted Vascular Access Dvce: Yes Musculoskeletal: Yes (osteoporosis) Neurologic: No Psychiatric: No Reproductive: No Respiratory: Yes (copd on oxygen) Pneumonia: Yes Sleep Apnea: No Thyroid Disease: No Menopausal: Yes Past Surgical History Abdominal Surgery: Yes (appendectomy, cholecystectomy) Appendectomy: Yes Body Medical Devices: sternal wires from cabg Cardiac Surgery: Yes (5 WAY BIPASS) Cholecystectomy: Yes Coronary Artery Bypass Graft: Yes (X5) Ear Surgery: No Endocrine Surgery: Yes (THYROID) Eye Surgery: No Genitourinary Surgery: No Gynecologic Surgery: Yes (x2 regular ) Neurologic Surgery: No Oral Surgery: Yes (lower dental implants) Thoracic Surgery: Yes Other Surgery: Yes Social History Alcohol Use: No Tobacco Use: Yes (1 PPD) Substance Use: No Allergies-Medications (Allergen,Severity, Reaction): Coded Allergies: penicillin G (Unverified Allergy, Severe, Anaphylaxis, 06/03/17) Reported Meds & Prescriptions Reported Meds & Active Scripts Active Prednisone 20 Mg Tab 60 Mg PO DAILY 5 Days Reported Percocet (Oxycodone-Acetaminophen) 10-325 mg Tab 1 Tab PO Q6H PRN Morphine ER (Morphine Sulfate) 60 Mg Tab 60 Mg PO Q8H Azithromycin 250 Mg Tab 250 Mg PO DIRECTED Take 2 tabs (500 mg) on day 1 then 1 tab daily x 4 days. Aspirin 81 Mg Chew 81 Mg CHEW DAILY Atorvastatin (Atorvastatin Calcium) 10 Mg Tab 10 Mg PO HS Spiriva Respimat Inh (Tiotropium Inh) 2.5 Mcg/Act Aero 2 Puff INH DAILY 2.5 mcg = 1 inhalation Potassium Chloride ER (Potassium Chloride) 20 Meq Tab 20 Meq PO DAILY Amlodipine (Amlodipine Besylate) 5 Mg Tab 5 Mg PO DAILY Metoprolol Succinate ER 24 HR (Metoprolol Succinate) 25 Mg Tab 25 Mg PO DAILY Review of Systems ROS Limitations: Intubated Physical Exam Vital Signs Vital Signs Date Time Temp Pulse Resp B/P (MAP) Pulse Ox O2 Delivery O2 Flow Rate FiO2 10/08/17 08:29 99 50 10/08/17 06:05 100 50 10/08/17 04:01 84 21 126/78 (94) 97 10/08/17 04:00 50 10/08/17 04:00 84 10/08/17 03:35 97 50 10/08/17 03:01 74 21 172/91 (118) 98 10/08/17 02:38 69 200/100 10/08/17 02:21 66 22 200/100 (133) 99 10/08/17 02:00 66 10/08/17 01:01 68 21 197/101 (133) 97 10/08/17 00:01 66 21 182/91 (121) 97 10/08/17 00:00 50 10/08/17 00:00 66 10/07/17 23:40 97 50 10/07/17 23:00 76 10/07/17 22:09 98.1 94 21 150/85 (106) 10/07/17 22:05 99 100 10/07/17 21:30 99 50 10/07/17 21:10 90 20 156/96 (116) 99 Ventilator 2.00 100 10/07/17 20:55 98 20 146/85 (105) 99 Ventilator 2.00 100 10/07/17 20:35 100 20 149/95 (113) 99 Ventilator 2.00 100 10/07/17 20:30 101 20 140/94 (109) 99 Ventilator 2.00 100 10/07/17 20:15 92 20 125/82 (96) 100 Ventilator 2.00 100 10/07/17 20:10 96 20 120/82 (95) 100 Ventilator 2.00 100 10/07/17 20:05 95 20 97/71 (80) 100 Ventilator 2.00 100 10/07/17 20:00 107 20 128/94 (105) 100 Ventilator 2.00 100 10/07/17 19:57 111 20 135/89 (104) 100 Ventilator 2.00 100 10/07/17 19:55 110 20 108/81 (90) 100 Ventilator 2.00 100 10/07/17 19:50 100 20 111/79 (90) 99 Ventilator 2.00 100 10/07/17 19:45 99 100 10/07/17 19:40 114 20 123/91 (102) 97 Ventilator 2.00 100 10/07/17 19:35 100 10/07/17 19:35 20 99 Ventilator 2.00 100 10/07/17 19:30 108 20 156/101 (119) 99 Ventilator 2.00 100 10/07/17 19:15 110 32 78 Nasal Cannula 2.00 10/07/17 19:15 32 78 Nasal Cannula 3.00 10/07/17 19:15 99.5 115 32 201/120 (147) 78 Physical Exam HEENT/ Neuro: Sedated, orally intubated, No pallor, no icterus, tongue/ mucosa moist Neck: No JVD Chest/Pulm: on mech vent, good air entry bilaterally, no wheezing or crackles CVS: S1-S2 regular, no murmur GI/abdomen: soft, nontender, bowel sounds sluggish Extremities: warm bilaterally, trace edema Laboratory Laboratory Tests Test 10/07/17 19:40 10/07/17 20:20 10/07/17 20:34 10/07/17 21:00 White Blood Count 17.8 Red Blood Count 6.32 Hemoglobin 17.5 Hematocrit 54.0 Mean Corpuscular Volume 85.4 Mean Corpuscular Hemoglobin 27.7 Mean Corpuscular Hemoglobin Concent 32.5 Red Cell Distribution Width 13.6 Platelet Count 260 Mean Platelet Volume 8.6 Neutrophils (%) (Auto) 62.7 Lymphocytes (%) (Auto) 27.5 Monocytes (%) (Auto) 6.7 Eosinophils (%) (Auto) 1.7 Basophils (%) (Auto) 1.4 Neutrophils # (Auto) 11.2 Lymphocytes # (Auto) 4.9 Monocytes # (Auto) 1.2 Eosinophils # (Auto) 0.3 Basophils # (Auto) 0.2 CBC Comment DIFF FINAL Differential Comment Prothrombin Time 10.0 Prothromb Time International Ratio 1.0 Activated Partial Thromboplast Time 21.0 Blood Urea Nitrogen 9 Creatinine 1.10 Random Glucose 201 Total Protein 8.4 Albumin 3.8 Calcium Level 9.7 Magnesium Level 2.7 Alkaline Phosphatase 153 Aspartate Amino Transf (AST/SGOT) 23 Alanine Aminotransferase (ALT/SGPT) 14 Total Bilirubin 0.7 Sodium Level 139 Potassium Level 4.6 Chloride Level 102 Carbon Dioxide Level 25.2 Anion Gap 12 Estimat Glomerular Filtration Rate 49 Total Creatine Kinase 117 Creatine Kinase MB 1.6 Troponin I LESS THAN 0.02 B-Type Natriuretic Peptide 220 Urine Color YELLOW Urine Turbidity CLEAR Urine pH 6.0 Urine Specific [place] GREATER/EQUAL 1.030 Urine Protein 100 Urine Glucose (UA) 100 Urine Ketones NEG Urine Occult Blood SMALL Urine Nitrite NEG Urine Bilirubin NEG Urine Urobilinogen 1.0 Urine Leukocyte Esterase NEG Urine RBC 3-5 Urine WBC 6-8 Urine Squamous Epithelial Cells 0-5 Urine Bacteria NONE Urine Coarse Granular Casts 0-2 Microscopic Urinalysis Comment CATH-CULT NOT IND Lactic Acid Level 2.6 Blood Gas Puncture Site RT RADIAL Blood Gas Patient Temperature 98.6 Blood Gas HCO3 27 Blood Gas Base Excess 1.4 Blood Gas Oxygen Saturation 96 Arterial Blood pH 7.28 Arterial Blood Partial Pressure CO2 60 Arterial Blood Partial Pressure O2 430 Arterial Blood Oxygen Content 22.7 Arterial Blood Carboxyhemoglobin 2.6 Arterial Blood Methemoglobin 1.2 Blood Gas Hemoglobin 16.0 Oxygen Delivery Device VENTILATOR Blood Gas Ventilator Setting PRVC Blood Gas Inspired Oxygen 100 Test 10/07/17 22:48 10/07/17 23:15 10/08/17 02:14 10/08/17 04:58 Nasal Screen MRSA (PCR) MRSA NOT DETECTED Lactic Acid Level 2.0 Troponin I GREATER THAN 40.00 White Blood Count 12.4 Red Blood Count 5.58 Hemoglobin 15.4 Hematocrit 47.0 Mean Corpuscular Volume 84.2 Mean Corpuscular Hemoglobin 27.5 Mean Corpuscular Hemoglobin Concent 32.7 Red Cell Distribution Width 13.3 Platelet Count 227 Mean Platelet Volume 8.1 Prothrombin Time 12.0 Prothromb Time International Ratio 1.2 Activated Partial Thromboplast Time 73.7 Test 10/08/17 08:03 Date/Time Source Procedure Growth Status 10/07/17 20:39 Blood Peripheral Aerobic Blood Culture Pending Received 10/07/17 20:39 Blood Peripheral Anaerobic Blood Culture Pending Received 10/07/17 23:20 Nasal Washing Influenza Types A,B Antigen (TAM) - Final NEGATIVE FOR FLU A AND B ANTIGEN.... Complete 10/07/17 20:20 Urine Catheterized Urine Legionella Antigen Pending Received 10/07/17 20:20 Urine Catheterized Urine Streptococcus pneumoniae Antigen (M Pending Received Result Diagram: 10/08/17 0458 10/07/17 1940 Imaging Last Impressions Chest X-Ray 10/08/17 0600 Signed Impressions: CONCLUSION: Stable chest. Cardiomegaly. Abdomen X-Ray 10/08/17 0000 Signed Impressions: CONCLUSION: Tip of the NG tube inside the stomach. Caprini VTE Risk Assessment Caprini VTE Risk Assessment: Mod/High Risk (score >= 2) Caprini Risk Assessment Model Point Value = 1 Point Value = 2 Point Value = 3 Point Value = 5 Age 41-60 Minor surgery BMI > 25 kg/m2 Swollen legs Varicose veins or History of unexplained or recurrent spontaneous Oral contraceptives or hormone replacement Sepsis (< 1 month) Serious lung disease, including pneumonia (< 1 month) Abnormal pulmonary function Acute myocardial infarction Congestive heart failure (< 1 month) History of inflammatory bowel disease Medical patient at bed rest Age 61-74 Arthroscopic surgery Major open surgery (> 45 min) Laparoscopic surgery (> 45 min) Malignancy Confined to bed (> 72 hours) Immobilizing plaster cast Central venous access Age >= 75 History of VTE Family history of VTE Factor V Leiden Prothrombin [id number] Lupus anticoagulant Anticardiolipin antibodies Elevated serum homocysteine Heparin-induced thrombocytopenia Other congenital or acquired thrombophilia Stroke (< 1 month) Elective arthroplasty Hip, pelvis, or leg fracture Acute spinal cord injury (< 1 month) Prophylaxis Regimen Total Risk Factor Score Risk Level Prophylaxis Regimen 0-1 Low Early ambulation 2 Moderate Order ONE of the following: *Sequential Compression Device (SCD) *Heparin 5000 units SQ BID 3-4 Higher Order ONE of the following medications: *Heparin 5000 units SQ TID *Enoxaparin/Lovenox 40 mg SQ daily (WT < 150 kg, CrCl > 30 mL/min) *Enoxaparin/Lovenox 30 mg SQ daily (WT < 150 kg, CrCl > 10-29 mL/min) *Enoxaparin/Lovenox 30 mg SQ BID (WT < 150 kg, CrCl > 30 mL/min) AND/OR *Sequential Compression Device (SCD) 5 or more Highest Order ONE of the following medications: *Heparin 5000 units SQ TID (Preferred with Epidurals) *Enoxaparin/Lovenox 40 mg SQ daily (WT < 150 kg, CrCl > 30 mL/min) *Enoxaparin/Lovenox 30 mg SQ daily (WT < 150 kg, CrCl > 10-29 mL/min) *Enoxaparin/Lovenox 30 mg SQ BID (WT < 150 kg, CrCl > 30 mL/min) AND *Sequential Compression Device (SCD) Assessment and Plan Assessment and Plan 72-year-old female with: Acute respiratory failure on mechanical ventilation Non-ST elevation CO COPD Uncontrolled hypertension Hyperglycemia Plan: Neuro: Sedation with propofol, daily sedation vacation. Follow neuro status. Cardiovascular: On heparin for anticoagulation. Aspirin. Start beta-cordell. Awaiting 2D echo and cardiology evaluation for acute CO. On nicardipine gtt. for uncontrolled hypertension. Pulmonary: Continue mechanical ventilation, vent bundle, bronchodilators as needed. Solu-Medrol GI/liver: N.p.o. for now. Awaiting cardiology evaluation. If no intervention plan, we will initiate tube feeds. Renal/: IV hydration, strict intake output, monitor and replete electrolyte, follow BN creatinine. ID: Follow-up cultures. Empiric antibiotic coverage with IV azithromycin/ cefepime initiated on 10/07 which will be continued Heme: Follow CBC and coags. On any coagulation with heparin. Endocrine: Watch for hypoglycemia, SSI for glycemic control. Prophylaxis: Pepcid/SCDs. On anticoagulation with heparin. Condition critical Time spent on critical care excluding procedures 60 minutes Reymundo Santos MD October 08, 2017 09:10
[2017-10-08] MEDS ORDERED: DEXTROSE 50% IN WATER 50 ML VIAL(D50) IV PRN (09:15)
[2017-10-08] MEDS ORDERED: GLUCAGON 1 MG/ML VIAL IM/SQ PRN (09:15)
--- NOTE | 2017-10-08 09:26 | PD.CONS ---
HPI Service cardiology Consult Requested By Reason for Consult NSTEMI Primary Care Physician Yohan Davison MD History of Present Illness 72 yo F with CAD, CABG x 5, prior IA, o2 dep COPD, diabetes, tobacco user and sleep apnea who presented to [place] ED yesterday complaining of progressive SOB x 2 days. Her respiratory status declined, she has been [place] [facility] and is now intub[place]. Initial EKG tracings show sinus tachycardia with ST depression on precordial leads. states she quit smoking one week ago and has been need nitro more frequently. Initial troponin level normal, but has now increased to above 40. 2016 echo shows EF 55-60% (Anna Villasenor) Review of Systems currently intubated and sedated (Anna Villasenor) Past Family Social History Allergies: Coded Allergies: penicillin G (Unverified Allergy, Severe, Anaphylaxis, 10/07/17) Past Medical History CAD, CABG x 5, prior IA, O2 dep COPD, sleep apnea, diabetes, tobacco abuse Past Surgical History CABG x 5 Reported Medications Reported Meds & Active Scripts Active Prednisone 20 Mg Tab 60 Mg PO DAILY 5 Days Reported Percocet (Oxycodone-Acetaminophen) 10-325 mg Tab 1 Tab PO Q6H PRN Morphine ER (Morphine Sulfate) 60 Mg Tab 60 Mg PO Q8H Azithromycin 250 Mg Tab 250 Mg PO DIRECTED Take 2 tabs (500 mg) on day 1 then 1 tab daily x 4 days. Aspirin 81 Mg Chew 81 Mg CHEW DAILY Atorvastatin (Atorvastatin Calcium) 10 Mg Tab 10 Mg PO HS Spiriva Respimat Inh (Tiotropium Inh) 2.5 Mcg/Act Aero 2 Puff INH DAILY 2.5 mcg = 1 inhalation Potassium Chloride ER (Potassium Chloride) 20 Meq Tab 20 Meq PO DAILY Amlodipine (Amlodipine Besylate) 5 Mg Tab 5 Mg PO DAILY Metoprolol Succinate ER 24 HR (Metoprolol Succinate) 25 Mg Tab 25 Mg PO DAILY Active Ordered Medications Current Medications Medications (Trade) Dose Ordered Sig/Indu Route Start Time Stop Time Status Last Admin (NS Flush) 2 ml UNSCH PRN IVF 10/07/17 19:15 Propofol 100 ml @ 2.13 mls/hr TITRATE PRN IV 10/07/17 19:15 10/08/17 04:06 [place] Patient in critical care unit? Ass... Q361D .XX 10/07/17 23:15 (Chlorhexidine 2% Cloth) 3 pack DAILY@04 TOPICAL 10/08/17 04:00 10/12/17 04:01 10/08/17 03:38 (Chlorhexidine 2% Cloth) 3 pack UNSCH PRN TOPICAL 10/07/17 23:15 10/12/17 23:00 (Aspirin Chew) 81 mg DAILY CHEW 10/08/17 09:00 (Lipitor) 10 mg HS PO 10/08/17 21:00 (Spiriva Inh) 2 mcg DAILY INH 10/08/17 09:00 Sodium Chloride 1,000 ml @ 84 mls/hr [id number] IV 10/08/17 00:47 10/08/17 02:22 (NS Flush) 2 ml UNSCH PRN IV FLUSH 10/08/17 01:00 (NS Flush) 2 ml BID IV FLUSH 10/08/17 09:00 (Tylenol) 650 mg Q6H PRN PO 10/08/17 01:00 (Dilaudid Pf Inj) 1 mg Q4H PRN IV PUSH 10/08/17 01:00 (Pepcid Inj) 20 mg Q12HR IV PUSH 10/08/17 09:00 (Ativan Inj) 1 mg Q1H PRN IV PUSH 10/08/17 01:00 (Tears Naturale Opth Soln) 1 drop TID EACH EYE 10/08/17 09:00 (Zofran Inj) 4 mg Q6H PRN IV PUSH 10/08/17 01:00 (Duoneb Neb) 1 ampule Q4HR NEB INH 10/08/17 04:00 10/08/17 08:00 (Duoneb Neb) 1 ampule Q2HR NEB PRN INH 10/08/17 01:00 (Heparin Inj) 5,000 units Q8H SQ 10/08/17 01:00 10/08/17 02:22 [place] [place] 1 Q361D XX 10/08/17 01:00 (Chlorhexidine 2% Cloth) 3 pack Taper DAILY@04 TOP 10/08/17 04:00 10/04/18 03:59 10/08/17 03:38 (Chlorhexidine 2% Cloth) 3 pack UNSCH PRN TOP 10/08/17 01:00 (Stephanie-Colace) 1 tab BID PO 10/08/17 09:00 (Milk Of Magnesia Liq) 30 ml Q12H PRN PO 10/08/17 01:00 (Senokot) 17.2 mg Q12H PRN PO 10/08/17 01:00 (Dulcolax Supp) 10 mg DAILY PRN RECTAL 10/08/17 01:00 (Lactulose Liq) 30 ml DAILY PRN PO 10/08/17 01:00 Cefepime HCl 2000 mg/Sodium Chloride 100 ml @ 200 mls/hr Q8H IV 10/08/17 01:00 10/08/17 02:23 Azithromycin 500 mg/Sodium Chloride 250 ml @ 250 mls/hr Q24H IV 10/08/17 02:00 10/08/17 02:00 (SoluMEDROL INJ) 40 mg Q8HR IV PUSH 10/08/17 06:00 10/08/17 04:04 Nicardipine HCl 25 mg/Sodium Chloride 260 ml @ 52 mls/hr TITRATE PRN IV 10/08/17 02:45 10/08/17 02:38 (Heparin Inj) 5,000 units UNSCH PRN IV 10/08/17 09:45 (Heparin Inj) 2,500 units UNSCH PRN IV 10/08/17 09:45 Heparin Sodium/ Dextrose 250 ml @ 9 mls/hr TITRATE PRN IV 10/08/17 03:45 10/08/17 04:04 Nitroglycerin/ Dextrose 250 ml @ 1.5 mls/hr TITRATE PRN IV 10/08/17 03:45 (Lopressor) 25 mg Q8HR OG-TUBE 10/08/17 09:00 (Roxanol Liq) 10 mg Q4H OG-TUBE 10/08/17 09:00 UNV Family History non-contributory Social History 2ppd tobacco use (Anna Villasenor) Physical Exam Vital Signs Vital Signs Date Time Temp Pulse Resp B/P (MAP) Pulse Ox O2 Delivery O2 Flow Rate FiO2 10/08/17 08:29 99 50 10/08/17 06:05 100 50 10/08/17 04:01 84 21 126/78 (94) 97 10/08/17 04:00 50 10/08/17 04:00 84 10/08/17 03:35 97 50 10/08/17 03:01 74 21 172/91 (118) 98 10/08/17 02:38 69 200/100 10/08/17 02:21 66 22 200/100 (133) 99 10/08/17 02:00 66 10/08/17 01:01 68 21 197/101 (133) 97 10/08/17 00:01 66 21 182/91 (121) 97 10/08/17 00:00 50 10/08/17 00:00 66 10/07/17 23:40 97 50 10/07/17 23:00 76 10/07/17 22:09 98.1 94 21 150/85 (106) 10/07/17 22:05 99 100 10/07/17 21:30 99 50 10/07/17 21:10 90 20 156/96 (116) 99 Ventilator 2.00 100 10/07/17 20:55 98 20 146/85 (105) 99 Ventilator 2.00 100 10/07/17 20:35 100 20 149/95 (113) 99 Ventilator 2.00 100 10/07/17 20:30 101 20 140/94 (109) 99 Ventilator 2.00 100 10/07/17 20:15 92 20 125/82 (96) 100 Ventilator 2.00 100 10/07/17 20:10 96 20 120/82 (95) 100 Ventilator 2.00 100 10/07/17 20:05 95 20 97/71 (80) 100 Ventilator 2.00 100 10/07/17 20:00 107 20 128/94 (105) 100 Ventilator 2.00 100 10/07/17 19:57 111 20 135/89 (104) 100 Ventilator 2.00 100 10/07/17 19:55 110 20 108/81 (90) 100 Ventilator 2.00 100 10/07/17 19:50 100 20 111/79 (90) 99 Ventilator 2.00 100 10/07/17 19:45 99 100 10/07/17 19:40 114 20 123/91 (102) 97 Ventilator 2.00 100 10/07/17 19:35 100 10/07/17 19:35 20 99 Ventilator 2.00 100 10/07/17 19:30 108 20 156/101 (119) 99 Ventilator 2.00 100 10/07/17 19:15 110 32 78 Nasal Cannula 2.00 527/18 19:15 32 78 Nasal Cannula 3.00 10/07/17 19:15 99.5 115 32 201/120 (147 78 Physical Exam GENERAL: SKIN: Warm and dry. HEAD: Atraumatic. Normocephalic. EYES: Pupils equal and round. No scleral icterus. No injection or drainage. ENT: No nasal bleeding or discharge. Mucous membranes pink and moist. NECK: Trachea midline. No JVD. CARDIOVASCULAR: Regular rate and rhythm. no murmurs RESPIRATORY: No accessory muscle use. Clear to auscultation. decreased breath sounds at bases GASTROINTESTINAL: Abdomen soft, non-tender, nondistended. Hepatic and splenic margins not palpable. MUSCULOSKELETAL: Extremities without clubbing, cyanosis, or edema. No obvious deformities. NEUROLOGICAL: intubated and sedated Laboratory Laboratory Tests Test 10/07/17 19:40 10/07/17 20:20 10/07/17 20:34 10/07/17 21:00 White Blood Count 17.8 Red Blood Count 6.32 Hemoglobin 17.5 Hematocrit 54.0 Mean Corpuscular Volume 85.4 Mean Corpuscular Hemoglobin 27.7 Mean Corpuscular Hemoglobin Concent 32.5 Red Cell Distribution Width 13.6 Platelet Count 260 Mean Platelet Volume 8.6 Neutrophils (%) (Auto) 62.7 Lymphocytes (%) (Auto) 27.5 Monocytes (%) (Auto) 6.7 Eosinophils (%) (Auto) 1.7 Basophils (%) (Auto) 1.4 Neutrophils # (Auto) 11.2 Lymphocytes # (Auto) 4.9 Monocytes # (Auto) 1.2 Eosinophils # (Auto) 0.3 Basophils # (Auto) 0.2 CBC Comment DIFF FINAL Differential Comment Prothrombin Time 10.0 Prothromb Time International Ratio 1.0 Activated Partial Thromboplast Time 21.0 Blood Urea Nitrogen 9 Creatinine 1.10 Random Glucose 201 Total Protein 8.4 Albumin 3.8 Calcium Level 9.7 Magnesium Level 2.7 Alkaline Phosphatase 153 Aspartate Amino Transf (AST/SGOT) 23 Alanine Aminotransferase (ALT/SGPT) 14 Total Bilirubin 0.7 Sodium Level 139 Potassium Level 4.6 Chloride Level 102 Carbon Dioxide Level 25.2 Anion Gap 12 Estimat Glomerular Filtration Rate 49 Total Creatine Kinase 117 Creatine Kinase MB 1.6 Troponin I LESS THAN 0.02 B-Type Natriuretic Peptide 220 Urine Color YELLOW Urine Turbidity CLEAR Urine pH 6.0 Urine Specific [place] GREATER/EQUAL 1.030 Urine Protein 100 Urine Glucose (UA) 100 Urine Ketones NEG Urine Occult Blood SMALL Urine Nitrite NEG Urine Bilirubin NEG Urine Urobilinogen 1.0 Urine Leukocyte Esterase NEG Urine RBC 3-5 Urine WBC 6-8 Urine Squamous Epithelial Cells 0-5 Urine Bacteria NONE Urine Coarse Granular Casts 0-2 Microscopic Urinalysis Comment CATH-CULT NOT IND Lactic Acid Level 2.6 Blood Gas Puncture Site RT RADIAL Blood Gas Patient Temperature 98.6 Blood Gas HCO3 27 Blood Gas Base Excess 1.4 Blood Gas Oxygen Saturation 96 Arterial Blood pH 7.28 Arterial Blood Partial Pressure CO2 60 Arterial Blood Partial Pressure O2 430 Arterial Blood Oxygen Content 22.7 Arterial Blood Carboxyhemoglobin 2.6 Arterial Blood Methemoglobin 1.2 Blood Gas Hemoglobin 16.0 Oxygen Delivery Device VENTILATOR Blood Gas Ventilator Setting PRVC Blood Gas Inspired Oxygen 100 Test 10/07/17 22:48 10/07/17 23:15 10/08/17 02:14 10/08/17 04:58 Nasal Screen MRSA (PCR) MRSA NOT DETECTED Lactic Acid Level 2.0 Troponin I GREATER THAN 40.00 White Blood Count 12.4 Red Blood Count 5.58 Hemoglobin 15.4 Hematocrit 47.0 Mean Corpuscular Volume 84.2 Mean Corpuscular Hemoglobin 27.5 Mean Corpuscular Hemoglobin Concent 32.7 Red Cell Distribution Width 13.3 Platelet Count 227 Mean Platelet Volume 8.1 Prothrombin Time 12.0 Prothromb Time International Ratio 1.2 Activated Partial Thromboplast Time 73.7 Test 10/08/17 08:03 Date/Time Source Procedure Growth Status 10/07/17 20:39 Blood Peripheral Aerobic Blood Culture Pending Received 10/07/17 20:39 Blood Peripheral Anaerobic Blood Culture Pending Received 10/07/17 23:20 Nasal Washing Influenza Types A,B Antigen (TAM) - Final NEGATIVE FOR FLU A AND B ANTIGEN.... Complete 10/07/17 20:20 Urine Catheterized Urine Legionella Antigen Pending Received 10/07/17 20:20 Urine Catheterized Urine Streptococcus pneumoniae Antigen (M Pending Received (Anna Villasenor) Result Diagram: 10/08/17 2311 10/07/17 194 Imaging Last 48 hours Impressions Chest X-Ray 10/08/17 0600 Signed Impressions: CONCLUSION: Stable chest. Cardiomegaly. Abdomen X-Ray 10/08/17 0000 Signed Impressions: CONCLUSION: Tip of the NG tube inside the stomach. Chest X-Ray 10/07/17 1910 Signed Impressions: CONCLUSION: 1. COPD 2. Diffuse interstitial prominence which may represent early congestion. 3. Satisfactory position of endotracheal tube and left subclavian central veno us catheter. 4. Mild cardiomegaly with evidence of prior CABG. 5. No evidence of acute airspace disease or pneumothorax. (Anna Villasenor) Assessment and Plan Problem List: (1) CAD (coronary artery disease) ICD Codes: I25.10 - CAD (coronary artery disease) Status: Acute (2) HTN (hypertension) ICD Codes: I10 - Essential (primary) hypertension Status: Acute Assessment and Plan 72 yo F with CAD, CABG x 5, prior IA, o2 dep COPD, diabetes, tobacco user and sleep apnea who presented to [place] ED yesterday complaining of progressive SOB x 2 days. Her respiratory status declined, she has been transferred [place] [facility] and is now intubated. Initial EKG tracings show sinus tachycardia with ST depression on precordial leads. states she quit smoking one week ago and has been need nitro more frequently. Initial troponin level normal, but has now increased to above 40. 2016 echo shows EF 55-60% NSTEMI- troponin elevation >40 currently intubated and sedated check echo plan for [facility] once stabilized and extubated (Anna Villasenor) Assessment and Plan FU echo trop trending down. gentle diuresis follow Cr will eventually need C heparin gtt (Ruslan Gonzalez MD) Anna Villasenor October 08, 2017 09:26 Ruslan Gonzalez MD October 08, 2017 09:36
[2017-10-08] MEDS ORDERED: HEPARIN SODIUM - IV 10,000 UNITS/10 ML VIAL IV PRN ×2 (09:45)
[2017-10-08] MEDS ORDERED: HEPARIN-D5W 25,000 U/250 ML 250 ML IV PRN (09:45)
[2017-10-08] MEDS: ASPIRIN 81 MG CHEW TAB CHEW SCH (10:10)
[2017-10-08] MEDS: DOCUSATE SODIUM 50 MG/SENNA 8.6 MG TAB PO SCH ×2 (10:10→20:24)
[2017-10-08] MEDS: SODIUM CHLORIDE 0.9% FLUSH 10 ML FLUSH IV FLUSH SCH ×2 (10:11→20:24)
[2017-10-08] MEDS: FAMOTIDINE 20 MG/2 ML VIAL IV PUSH SCH ×2 (10:11→20:23)
[2017-10-08] MEDS: hydrALAZINE HCL 50 MG TAB PO SCH ×3 (10:39→20:23)
[2017-10-08] MEDS: FUROSEMIDE 40 MG/4 ML VIAL IV PUSH SCH (10:39)
[2017-10-08 10:49] LABS: HEMATOCRIT 47.1 % (35.0-46.0); MEAN CELL VOLUME 83.2 FL (80.0-100.0); MEAN CORPUSCULAR HEMOGLOBIN 28.2 PG (27.0-34.0); MEAN CORPUSCULAR HGB CONC 33.9 % (32.0-36.0); MEAN PLATELET VOLUME 8.2 FL (7.0-11.0); PLATELET COUNT 220 TH/MM3 (150-450); RED BLOOD COUNT 5.66 MIL/MM3 (4.00-5.30); RED CELL DISTRIBUTION WIDTH 14.3 % (11.6-17.2); WHITE BLOOD COUNT 11.7 TH/MM3 (4.0-11.0)
[2017-10-08 10:57] LABS: INTERNATIONAL NORMALIZED RATIO 1.1 RATIO; PROTHROMBIN TIME - PATIENT 11.2 SEC (9.8-11.6)
[2017-10-08] MEDS: INSULIN ASPART SUPPLEMENTAL SCALE SQ SCH ×3 (12:00→20:23)
[2017-10-08] MEDS: MORPHINE SULFATE ORAL SOLN 10 MG/0.5 ML SYRINGE OG-TUBE SCH ×3 (13:00→20:22)
[2017-10-08] MEDS: ATORVASTATIN 10 MG TAB PO SCH (20:23)
[2017-10-09] VITALS (18 sets, daily range): BP systolic 127–154; BP diastolic 64–82; PULSE 100–118; RESP 18–22; TEMP 89.8–98.7; O2SAT 94–99
[2017-10-09] MEDS: MORPHINE SULFATE ORAL SOLN 10 MG/0.5 ML SYRINGE OG-TUBE SCH ×6 (00:23→20:37)
[2017-10-09] MEDS: PROPOFOL 1000 MG/100 ML INJ 100 ML IV PRN ×3 (00:23→10:23)
[2017-10-09] MEDS: INSULIN ASPART SUPPLEMENTAL SCALE SQ SCH ×6 (00:23→20:35)
[2017-10-09] MEDS: niCARdipine 25 MG/NS 250 ML Vial2Bag or IV room IV PRN ×6 (01:59→09:51)
[2017-10-09] MEDS: AZITHROMYCIN INJ 500 MG in SODIUM CHLOR 0.9% 250 ML INJ 250 ML IV SCH (02:10)
[2017-10-09] MEDS: HEPARIN-D5W 25,000 U/250 ML 250 ML IV PRN (02:12)
[2017-10-09] MEDS: RESP: ALBUTEROL 2.5 MG/IPRATROPIUM 0.5 MG NEB (SCH) INH ×5 (03:38→19:58)
[2017-10-09] MEDS: CHLORHEXIDINE GLUCONATE 2 % 1 PACK (2 CLOTHS) TOP SCH (04:00)
[2017-10-09] MEDS: CHLORHEXIDINE GLUCONATE 2 % 1 PACK (2 CLOTHS)(taper/protocol) TOPICAL SCH (04:00)
[2017-10-09 04:59] LABS: AUTOMATED NEUTROPHIL # 17.2 TH/MM3 (1.8-7.7); BASOPHIL % 0.2 % (0.0-2.0); HEMATOCRIT 44.4 % (35.0-46.0); HEMOGLOBIN 14.9 GM/DL (11.6-15.3); LYMPH % 4.9 % (9.0-44.0); LYMPHOCYTE # 0.9 TH/MM3 (1.0-4.8); MEAN CELL VOLUME 82.5 FL (80.0-100.0); MEAN CORPUSCULAR HEMOGLOBIN 27.8 PG (27.0-34.0); MEAN CORPUSCULAR HGB CONC 33.7 % (32.0-36.0); MEAN PLATELET VOLUME 7.6 FL (7.0-11.0); MONO % 4.1 % (0.0-8.0); MONOCYTE # 0.8 TH/MM3 (0-0.9); NEUT % 90.8 % (16.0-70.0); PLATELET COUNT 244 TH/MM3 (150-450); RED BLOOD COUNT 5.38 MIL/MM3 (4.00-5.30); RED CELL DISTRIBUTION WIDTH 14.5 % (11.6-17.2); WHITE BLOOD COUNT 18.9 TH/MM3 (4.0-11.0)
[2017-10-09] MEDS: methylPREDNISolone SOD SUCC 40 MG/1 ML VIAL IV PUSH SCH ×3 (05:01→22:10)
[2017-10-09] MEDS: hydrALAZINE HCL 50 MG TAB PO SCH ×3 (05:02→22:10)
[2017-10-09 05:13] LABS: INTERNATIONAL NORMALIZED RATIO 1.1 RATIO; PROTHROMBIN TIME - PATIENT 10.7 SEC (9.8-11.6)
[2017-10-09 05:30] LABS: ALBUMIN 2.9 GM/DL (3.4-5.0); ALKALINE PHOSPHATASE 121 U/L (45-117); ALT (GPT) 30 U/L (10-53); AST (GOT) 115 U/L (15-37); BICARBONATE 25.3 MEQ/L (21.0-32.0); BLOOD UREA NITROGEN 13 MG/DL (7-18); CALCIUM 8.4 MG/DL (8.5-10.1); CHLORIDE 104 MEQ/L (98-107); CREATININE 0.75 MG/DL (0.50-1.00); GLOMERULAR FILTRATION RATE 76 ML/MIN (>89); GLUCOSE,RANDOM 270 MG/DL (74-106); MAGNESIUM 2.4 MG/DL (1.5-2.5); PHOSPHORUS 2.3 MG/DL (2.5-4.9); SODIUM (NA) 141 MEQ/L (136-145); TOTAL BILIRUBIN ADULT 0.6 MG/DL (0.2-1.0); TOTAL PROTEIN 6.3 GM/DL (6.4-8.2)
[2017-10-09] MEDS ORDERED: POTASSIUM CHLOR 20 MEQ PREMIX 100 ML IV PRN (05:45)
[2017-10-09] MEDS ORDERED: MAGNESIUM OXIDE 400 MG TAB PO PRN (05:45)
[2017-10-09] MEDS ORDERED: POTASSIUM CHLORIDE 25 MEQ EFFERVESCENT TAB PO PRN (05:45)
[2017-10-09] MEDS ORDERED: MAGNESIUM SULFATE INJ 2 GM in SODIUM CHLORIDE 0.9% INJ 96 ML IV PRN (05:45)
[2017-10-09] MEDS ORDERED: POTASSIUM CHLOR 40 MEQ PREMIX 100 ML IV PRN ×2 (05:45)
[2017-10-09] MEDS ORDERED: MAGNESIUM SULFATE INJ 4 GM in SODIUM CHLORIDE 0.9% INJ 92 ML IV PRN (05:45)
[2017-10-09] MEDS ORDERED: POTASSIUM CHLORIDE 25 MEQ EFFERVESCENT TAB PO ONE (05:45)
[2017-10-09] MEDS ORDERED: SODIUM PHOSPHATE INJ 30 MMOL in SODIUM CHLOR 0.9% 250 ML INJ 240 ML IV PRN (05:45)
[2017-10-09] MEDS ORDERED: POTASSIUM PHOSPHATE MONOBASIC 500 MG TAB PO/TUBE PRN (05:45)
[2017-10-09] MEDS ORDERED: POTASSIUM PHOSPHATE INJ 30 MMOL in SODIUM CHLOR 0.9% 250 ML INJ 250 ML IV PRN (05:45)
[2017-10-09] MEDS ORDERED: POTASSIUM PHOSPHATE MONOBASIC 500 MG TAB PO PRN (05:45)
[2017-10-09] MEDS: POTASSIUM CHLOR 20 MEQ PREMIX 100 ML IV PRN ×2 (05:54→08:43)
--- NOTE | 2017-10-09 08:01 | PD.CARD.PN ---
Subjective Subjective Remarks intubated, sedated and mechanically ventilated (Anna Villasenor) Objective Medications Current Medications Medications (Trade) Dose Ordered Sig/Indu Route Start Time Stop Time Status Last Admin Propofol 100 ml @ 2.13 mls/hr TITRATE PRN IV 10/07/17 19:15 10/09/17 05:28 ([facility] [place] Nursing Information) Patient in critical care unit? Ass... Q361D .XX 10/07/17 23:15 (Chlorhexidine 2% Cloth) 3 pack DAILY@04 TOPICAL 10/08/17 04:00 10/12/17 04:01 10/08/17 03:38 (Chlorhexidine 2% Cloth) 3 pack UNSCH PRN TOPICAL 10/07/17 23:15 10/12/17 23:00 (Aspirin Chew) 81 mg DAILY CHEW 10/08/17 09:00 10/08/17 10:10 (Lipitor) 10 mg HS PO 10/08/17 21:00 10/08/17 20:23 (Spiriva Inh) 2 mcg DAILY INH 10/08/17 09:00 Sodium Chloride 1,000 ml @ 84 mls/hr [id number] IV 10/08/17 00:47 10/08/17 22:20 (NS Flush) 2 ml UNSCH PRN IV FLUSH 10/08/17 01:00 (NS Flush) 2 ml BID IV FLUSH 10/08/17 09:00 10/08/17 20:24 (Tylenol) 650 mg Q6H PRN PO 10/08/17 01:00 (Dilaudid Pf Inj) 1 mg Q4H PRN IV PUSH 10/08/17 01:00 (Pepcid Inj) 20 mg Q12HR IV PUSH 10/08/17 09:00 10/08/17 20:23 (Ativan Inj) 1 mg Q1H PRN IV PUSH 10/08/17 01:00 (Tears Naturale Opth Soln) 1 drop TID EACH EYE 10/08/17 09:00 10/08/17 18:00 (Zofran Inj) 4 mg Q6H PRN IV PUSH 10/08/17 01:00 (Duoneb Neb) 1 ampule Q4HR NEB INH 10/08/17 04:00 10/09/17 07:53 (Duoneb Neb) 1 ampule Q2HR NEB PRN INH 10/08/17 01:00 ([facility] [place] Nursing Information) 1 Q361D XX 10/08/17 01:00 (Chlorhexidine 2% Cloth) 3 pack Taper DAILY@04 TOP 10/08/17 04:00 10/04/18 03:59 10/09/17 04:00 (Chlorhexidine 2% Cloth) 3 pack UNSCH PRN TOP 10/08/17 01:00 (Stephanie-Colace) 1 tab BID PO 10/08/17 09:00 10/08/17 20:24 (Milk Of Magnesia Liq) 30 ml Q12H PRN PO 10/08/17 01:00 (Senokot) 17.2 mg Q12H PRN PO 10/08/17 01:00 (Dulcolax Supp) 10 mg DAILY PRN RECTAL 10/08/17 01:00 (Lactulose Liq) 30 ml DAILY PRN PO 10/08/17 01:00 Azithromycin 500 mg/Sodium Chloride 250 ml @ 250 mls/hr Q24H IV 10/08/17 02:00 10/09/17 02:10 (SoluMEDROL INJ) 40 mg Q8HR IV PUSH 10/08/17 06:00 10/09/17 05:01 Nicardipine HCl 25 mg/Sodium Chloride 260 ml @ 52 mls/hr TITRATE PRN IV 10/08/17 02:45 10/09/17 05:29 Nitroglycerin/ Dextrose 250 ml @ 1.5 mls/hr TITRATE PRN IV 10/08/17 03:45 (Roxanol Liq) 10 mg Q4H OG-TUBE 10/08/17 09:00 10/09/17 05:02 (NovoLOG SUPPLEMENTAL SCALE) 1 Q4HR SQ 10/08/17 12:00 10/09/17 05:01 (D50w (Vial) Inj) 25 ml UNSCH PRN IV 10/08/17 09:15 (Glucagon Inj) 1 mg UNSCH PRN IM/SQ 10/08/17 09:15 (Lasix Inj) 40 mg DAILY IV PUSH 10/08/17 09:45 10/08/17 10:39 Heparin Sodium/ Dextrose 250 ml @ 9 mls/hr TITRATE PRN IV 10/08/17 09:45 (Apresoline) 50 mg Q8HR PO 10/08/17 09:45 10/09/17 05:02 Cefepime HCl 2000 mg/Sodium Chloride 100 ml @ 200 mls/hr Q12HR IV 10/08/17 21:00 10/08/17 20:22 Potassium Chloride 100 ml @ 50 mls/hr Q2H PRN IV 10/09/17 05:45 Potassium Chloride 100 ml @ 50 mls/hr Q2H PRN IV 10/09/17 05:45 10/09/17 05:54 (K-Lyte Cl Eff) 50 meq UNSCH PRN PO 10/09/17 05:45 Potassium Chloride 100 ml @ 25 mls/hr UNSCH PRN IV 10/09/17 05:45 Potassium Chloride 100 ml @ 50 mls/hr Q2H PRN IV 10/09/17 05:45 Magnesium Sulfate 4 gm/Sodium Chloride 100 ml @ 50 mls/hr UNSCH PRN IV 10/09/17 05:45 (Mag-Ox) 800 mg UNSCH PRN PO 10/09/17 05:45 Magnesium Sulfate 2 gm/Sodium Chloride 100 ml @ 50 mls/hr UNSCH PRN IV 10/09/17 05:45 (K-Phos) 2,000 mg Q4H PRN PO 10/09/17 05:45 Sodium Phosphate 30 mmol/Sodium Chloride 250 ml @ 42 mls/hr UNSCH PRN IV 10/09/17 05:45 (K-Phos) 2,000 mg UNSCH PRN PO/TUBE 10/09/17 05:45 Potassium Phosphate 30 mmol/ Sodium Chloride 260 ml @ 42 mls/hr UNSCH PRN IV 10/09/17 05:45 Vital Signs / I&O Vital Signs Date Time Temp Pulse Resp B/P (MAP) Pulse Ox O2 Delivery O2 Flow Rate FiO2 10/09/17 07:50 97 50 10/09/17 06:02 22 10/09/17 06:00 116 10/09/17 05:29 103 128/63 10/09/17 04:12 97 50 10/09/17 04:00 50 10/09/17 04:00 97.9 106 22 128/64 (85) 97 10/09/17 04:00 106 10/09/17 02:00 103 10/09/17 01:59 99 137/68 10/09/17 01:12 98 50 10/09/17 00:00 101 10/09/17 00:00 89.8 101 22 144/75 (98) 99 10/09/17 00:00 50 10/08/17 22:58 91 143/73 10/08/17 22:00 91 10/08/17 20:26 98 50 10/08/17 20:00 99.7 101 22 129/68 (88) 97 10/08/17 20:00 101 10/08/17 20:00 50 10/08/17 18:00 90 10/08/17 16:31 96 50 10/08/17 16:00 106 10/08/17 16:00 50 10/08/17 16:00 98.0 106 22 140/74 (96) 97 10/08/17 15:03 92 149/73 10/08/17 14:00 90 10/08/17 13:00 94 81 134/68 (90) 97 10/08/17 12:05 98 50 10/08/17 12:00 50 10/08/17 12:00 97.8 91 75 115/64 (81) 97 10/08/17 12:00 91 10/08/17 11:00 85 65 131/71 (91) 98 10/08/17 10:00 82 10/08/17 10:00 82 22 133/71 (91) 98 10/08/17 09:00 80 22 134/68 (90) 99 10/08/17 08:29 99 50 10/08/17 08:00 97.6 75 22 127/72 (90) 99 10/08/17 08:00 50 10/08/17 08:00 75 I/O 10/08/17 10/08/17 10/08/17 10/09/17 10/09/17 10/09/17 07:00 15:00 23:00 07:00 15:00 23:00 Intake Total 200 ml 1967 ml 543 ml Output Total 500 ml 2600 ml 1250 ml Balance -500 ml 200 ml -633 ml -707 ml Intake IV Total 200 ml 1720 ml Tube Feeding 147 ml 343 ml Other 100 ml 200 ml Output Urine Total 500 ml 2600 ml 1250 ml Stool Total 0 ml 0 ml Physical Exam GENERAL: intubated, sedated and mechanically ventilated SKIN: Warm and dry. HEAD: Atraumatic. Normocephalic. EYES: Pupils equal and round. No scleral icterus. N ENT: No nasal bleeding or discharge. NECK: Trachea midline. No JVD. CARDIOVASCULAR: Regular rate and rhythm. no murmurs RESPIRATORY: No accessory muscle use. Clear to auscultation. Breath sounds equal bilaterally. GASTROINTESTINAL: Abdomen soft, non-tender, nondistended. MUSCULOSKELETAL: Extremities without clubbing, cyanosis, or edema. No obvious deformities. NEUROLOGICAL: intubated, sedated Laboratory Laboratory Tests Test 10/08/17 08:03 10/08/17 10:00 10/08/17 17:09 10/08/17 23:46 Troponin I 36.50 NG/ML White Blood Count 11.7 TH/MM3 Red Blood Count 5.66 MIL/MM3 Hemoglobin 16.0 GM/DL Hematocrit 47.1 % Mean Corpuscular Volume 83.2 FL Mean Corpuscular Hemoglobin 28.2 PG Mean Corpuscular Hemoglobin Concent 33.9 % Red Cell Distribution Width 14.3 % Platelet Count 220 TH/MM3 Mean Platelet Volume 8.2 FL Prothrombin Time 11.2 SEC Prothromb Time International Ratio 1.1 RATIO Activated Partial Thromboplast Time 42.7 SEC 35.2 SEC 33.4 SEC Test 10/09/17 04:47 White Blood Count 18.9 TH/MM3 Red Blood Count 5.38 MIL/MM3 Hemoglobin 14.9 GM/DL Hematocrit 44.4 % Mean Corpuscular Volume 82.5 FL Mean Corpuscular Hemoglobin 27.8 PG Mean Corpuscular Hemoglobin Concent 33.7 % Red Cell Distribution Width 14.5 % Platelet Count 244 TH/MM3 Mean Platelet Volume 7.6 FL Neutrophils (%) (Auto) 90.8 % Lymphocytes (%) (Auto) 4.9 % Monocytes (%) (Auto) 4.1 % Eosinophils (%) (Auto) 0.0 % Basophils (%) (Auto) 0.2 % Neutrophils # (Auto) 17.2 TH/MM3 Lymphocytes # (Auto) 0.9 TH/MM3 Monocytes # (Auto) 0.8 TH/MM3 Eosinophils # (Auto) 0.0 TH/MM3 Basophils # (Auto) 0.0 TH/MM3 CBC Comment DIFF FINAL Differential Comment Prothrombin Time 10.7 SEC Prothromb Time International Ratio 1.1 RATIO Activated Partial Thromboplast Time 38.6 SEC Blood Urea Nitrogen 13 MG/DL Creatinine 0.75 MG/DL Random Glucose 270 MG/DL Total Protein 6.3 GM/DL Albumin 2.9 GM/DL Calcium Level 8.4 MG/DL Phosphorus Level 2.3 MG/DL Magnesium Level 2.4 MG/DL Alkaline Phosphatase 121 U/L Aspartate Amino Transf (AST/SGOT) 115 U/L Alanine Aminotransferase (ALT/SGPT) 30 U/L Total Bilirubin 0.6 MG/DL Sodium Level 141 MEQ/L Potassium Level 2.6 MEQ/L Chloride Level 104 MEQ/L Carbon Dioxide Level 25.3 MEQ/L Anion Gap 12 MEQ/L Estimat Glomerular Filtration Rate 76 ML/MIN Lactic Acid Level 1.6 mmol/L Imaging Last 48 hours Impressions Chest X-Ray 10/08/17 0600 Signed Impressions: CONCLUSION: Stable chest. Cardiomegaly. Abdomen X-Ray 10/08/17 0000 Signed Impressions: CONCLUSION: Tip of the NG tube inside the stomach. Chest X-Ray 10/07/17 1910 Signed Impressions: CONCLUSION: 1. COPD 2. Diffuse interstitial prominence which may represent early congestion. 3. Satisfactory position of endotracheal tube and left subclavian central veno us catheter. 4. Mild cardiomegaly with evidence of prior CABG. 5. No evidence of acute airspace disease or pneumothorax. (Anna Villasenor) Assessment and Plan Problem List: (1) CAD (coronary artery disease) ICD Codes: I25.10 - CAD (coronary artery disease) Status: Acute (2) HTN (hypertension) ICD Codes: I10 - Essential (primary) hypertension Status: Acute Assessment and Plan 72 yo F with CAD, CABG x 5, prior PR, O2 dep COPD, diabetes, tobacco user and sleep apnea who presented to [place] ED with progressive SOB. Her respiratory status declined, now intubated. NSTEMI- troponin elevation >40, trending downward. will continue to monitor trend currently intubated and sedated hypokalemia- cont repletion gentle diuresis; monitor creatinine heparin echo ordered plan for C once stabilized and extubated (Anna Villasenor) Assessment and Plan --------\ agree with above continue supportive care call when extubated and we will coordinate LHC will sign off call with further questions (Ruslan Gonzalez MD) Anna Villasenor October 09, 2017 08:01 Ruslan Gnozalez MD October 09, 2017 10:49
[2017-10-09] MEDS: DOCUSATE SODIUM 50 MG/SENNA 8.6 MG TAB PO SCH ×2 (08:35→20:37)
[2017-10-09] MEDS: ASPIRIN 81 MG CHEW TAB CHEW SCH (08:35)
[2017-10-09] MEDS: FAMOTIDINE 20 MG/2 ML VIAL IV PUSH SCH ×2 (08:36→20:36)
[2017-10-09] MEDS: FUROSEMIDE 40 MG/4 ML VIAL IV PUSH SCH (08:37)
[2017-10-09] MEDS: CEFEPIME INJ 2,000 MG in SODIUM CHLORIDE 0.9% INJ 100 ML IV SCH ×2 (08:38→20:37)
[2017-10-09] MEDS: TIOTROPIUM BROMIDE 18 MCG INH INH SCH (08:38)
[2017-10-09] MEDS: SODIUM CHLORIDE 0.9% FLUSH 10 ML FLUSH IV FLUSH SCH ×2 (08:38→20:36)
[2017-10-09] MEDS: ARTIFICIAL TEARS OPTH SOLN 15 ML BTL EACH EYE SCH ×3 (08:39→18:00)
[2017-10-09] MEDS: SODIUM CHLOR 0.9% 1000 ML INJ 1,000 ML IV SCH ×2 (12:32→22:57)
--- NOTE | 2017-10-09 15:44 | HHI.CCPN ---
Subjective Remarks/Hospital Course 10/08: 72-year-old female who was rushed in by private vehicle, family member brought her in complaining of severe shortness of breath, not improved by her own home nebulizers, or her home oxygen. Per family member this started about 30-45 minutes prior to arrival and had a sudden onset of severity. According to family she was not complaining of any chest pain or anything along those lines.... However she had been short of breath more than usual over the past 2 days... unable to obtain any further history due to the severity of condition per patient conversation with the ER physician PCP is Dr. Davison Past medical history significant for dental implants, hypertension, 5 vessel CABG bypass, SD 3, hypercholesterolemia, hypertension, COPD oxygen dependent, pneumonia, sleep apnea, hiatal hernia, appendectomy, cholecystectomy, hypothyroidism, diabetes and currently smokes 1 pack a day. Patient developed worsening respiratory distress following arrival in the ER and was emergently intubated and placed on mechanical ventilation. She had a central line placed by ER physician at [place]. Her repeat troponin came back greater than 40. Patient was transferred to [facility] ICU and cardiology consult was requested. When I evaluated patient following arrival to the ICU she was sedated with propofol, orally intubated on mechanical ventilation on a nicardipine drip for elevated blood pressure. She had been started on heparin for anticoagulation in view of acute SD. 10/09: Sedated, arousable, orally intubated on mechanical ventilation. Objective Vital Signs Date Time Temp Pulse Resp B/P (MAP) Pulse Ox O2 Delivery O2 Flow Rate FiO2 10/09/17 11:58 97 50 10/09/17 09:51 112 120/66 10/09/17 08:00 98.3 22 10/07/17 21:10 Ventilator 2.00 Intake and Output 10/09/17 10/09/17 10/10/17 08:00 16:00 00:00 Intake Total 543 ml Output Total 1250 ml Balance -707 ml Result Diagram: 10/09/17 0447 10/09/17 0447 Other Results Microbiology Date/Time Source Procedure Growth Status 10/07/17 23:20 Nasal Washing Influenza Types A,B Antigen (TAM) - Final NEGATIVE FOR FLU A AND B ANTIGEN.... Complete 10/07/17 20:20 Urine Catheterized Urine Legionella Antigen - Final PRESUMPTIVE NEGATIVE FOR LEGIONELLA P... Complete 10/07/17 20:20 Urine Catheterized Urine Streptococcus pneumoniae Antigen (M - Final PRESUMPTIVE NEGATIVE FOR STREPTOCOCCU... Complete Imaging Last Impressions Chest X-Ray 10/08/17 0600 Signed Impressions: CONCLUSION: Stable chest. Cardiomegaly. Abdomen X-Ray 10/08/17 0000 Signed Impressions: CONCLUSION: Tip of the NG tube inside the stomach. Objective Remarks HEENT/ Neuro: Sedated, orally intubated, No pallor, no icterus, tongue/ mucosa moist Neck: No JVD Chest/Pulm: on mech vent, good air entry bilaterally, no wheezing or crackles CVS: S1-S2 regular, no murmur GI/abdomen: soft, nontender, bowel sounds sluggish Extremities: warm bilaterally, trace edema A/P Assessment and Plan 72-year-old female with: Acute respiratory failure on mechanical ventilation Non-ST elevation SD COPD Uncontrolled hypertension Hyperglycemia Plan: Neuro: Sedation with propofol, daily sedation vacation. Follow neuro status. Cardiovascular: On heparin for anticoagulation. Aspirin, resume beta-cordell. F /u 2D echo. cardiology following for acute SD. On nicardipine gtt. for uncontrolled hypertension. Pulmonary: Continue mechanical ventilation, vent bundle, bronchodilators as needed. Solu-Medrol. CPAP trials to decide extubation GI/liver: Tolerating tube feeds. Held for possible extubation Renal/: IV hydration, strict intake output, monitor and replete electrolyte, follow BN creatinine. ID: Follow-up cultures. Empiric antibiotic coverage with IV azithromycin/ cefepime initiated on 10/07 which will be continued Heme: Follow CBC and coags. On anticoagulation with heparin. Endocrine: Watch for hypoglycemia, SSI for glycemic control. Prophylaxis: Pepcid/SCDs. On anticoagulation with heparin. Condition critical Time spent on critical care excluding procedures 35 minutes Reymundo Santos MD October 09, 2017 15:44
[2017-10-09] MEDS: MORPHINE SULFATE 8 MG/ML INJ IV PUSH PRN ×2 (17:10→22:42)
[2017-10-09] MEDS: NITROGLYCERIN 0.4 MG SL 25 TABS/BTL SL PRN ×2 (17:40→21:12)
[2017-10-09] MEDS ORDERED: NITROGLYCERIN-D5W 50 MG/250 ML 250 ML IV PRN (17:45)
[2017-10-09] MEDS: ATORVASTATIN 10 MG TAB PO SCH (20:35)
[2017-10-09] MEDS ORDERED: ADENOSINE IV SOLN 3 MG/ML 2 ML VIAL ONE (23:46)
[2017-10-09] MEDS ORDERED: MIDAZOLAM HCL 5 MG/ML VIAL (1 ML) ONE (23:49)
[2017-10-09] MEDS ORDERED: MAGNESIUM SULFATE 1 GM PREMIX 200 ML ONE (23:53)
[2017-10-09] MEDS ORDERED: MORPHINE SULFATE 4 MG/ML INJ ONE (23:59)
[2017-10-10] VITALS (45 sets, daily range): BP systolic 90–143; BP diastolic 50–91; PULSE 68–132; RESP 13–73; TEMP 97.6–98.4; O2SAT 90–100
[2017-10-10] MEDS ORDERED: ADENOSINE IV SOLN 3 MG/ML 2 ML VIAL IV PUSH SCH
[2017-10-10] MEDS ORDERED: MORPHINE SULFATE 4 MG/ML INJ IV SCH (00:02)
[2017-10-10] MEDS ORDERED: METOPROLOL TARTRATE 5 MG/5 ML VIAL IV PUSH SCH (00:05)
[2017-10-10] MEDS: METOPROLOL TARTRATE 5 MG/5 ML VIAL IV PUSH PRN ×5 (00:10→00:56)
[2017-10-10] MEDS ORDERED: PHENYLEPHRINE HCL 10 MG/ML VIAL ONE (00:11)
[2017-10-10] MEDS ORDERED: DILTIAZEM HCL 25 MG/5 ML VIAL IV ONE (00:15)
[2017-10-10] MEDS ORDERED: METOPROLOL TARTRATE 5 MG/5 ML VIAL IV PUSH PRN (00:15)
[2017-10-10] MEDS ORDERED: AMIODARONE 150 MG/D5W 97 ML BOLUS 10 MINUTES IV ONE ×2 (00:30)
[2017-10-10] MEDS ORDERED: AMIODARONE INJ 450 MG in D5W (EXCEL BAG) INJ 241 ML IV PRN (00:30)
[2017-10-10] MEDS ORDERED: TERBUTALINE INJ 1 MG/ML AMP SQ PRN (00:30)
[2017-10-10] MEDS: AMIODARONE INJ 450 MG in SODIUM CHLOR 0.9% (EXCEL) INJ 250 ML IV PRN ×2 (00:45→07:48)
[2017-10-10] MEDS: RESP: ALBUTEROL 2.5 MG/IPRATROPIUM 0.5 MG NEB (SCH) INH ×5 (00:51→23:07)
[2017-10-10] MEDS: MAGNESIUM SULFATE 1 GM PREMIX 100 ML IV SCH ×2 (00:57→01:01)
[2017-10-10] MEDS: PHENYLEPHRINE 40 MG in D5W 500 ML IV PRN ×2 (00:58→07:46)
[2017-10-10] MEDS: MORPHINE SULFATE ORAL SOLN 10 MG/0.5 ML SYRINGE OG-TUBE SCH ×6 (01:00→20:50)
--- NOTE | 2017-10-10 01:36 | HHI.CCPN ---
Subjective Remarks/Hospital Course 10/08: 72-year-old female who was rushed in by private vehicle, family member brought her in complaining of severe shortness of breath, not improved by her own home nebulizers, or her home oxygen. Per family member this started about 30-45 minutes prior to arrival and had a sudden onset of severity. According to family she was not complaining of any chest pain or anything along those lines.... However she had been short of breath more than usual over the past 2 days... unable to obtain any further history due to the severity of condition per patient conversation with the ER physician PCP is Dr. Davison Past medical history significant for dental implants, hypertension, 5 vessel CABG bypass, NH 3, hypercholesterolemia, hypertension, COPD oxygen dependent, pneumonia, sleep apnea, hiatal hernia, appendectomy, cholecystectomy, hypothyroidism, diabetes and currently smokes 1 pack a day. Patient developed worsening respiratory distress following arrival in the ER and was emergently intubated and placed on mechanical ventilation. She had a central line placed by ER physician at [place]. Her repeat troponin came back greater than 40. Patient was transferred to [facility] ICU and cardiology consult was requested. When I evaluated patient following arrival to the ICU she was sedated with propofol, orally intubated on mechanical ventilation on a nicardipine drip for elevated blood pressure. She had been started on heparin for anticoagulation in view of acute NH. 10/09: Sedated, arousable, orally intubated on mechanical ventilation. 10/10: called for crushing substernal chest pain. trops elevated. already on heparin drip with ASA. SL ntg not alleviating pain. iv morphine not relieving pain. added nitro drip, still not relieving pain. added iv lopressor for HR control, still no improvement. then patient converted to afib RVR with acute worsening of her chest pain. attempted cardioversion with adenosine 12mg without success. likely ischemic SVT, so avoided electrical cardioversion. gave additional lopressor and diltiazem with some improvement in HR, but still with RVR (initial HR 180s, now 140s). amio load and bolus. added iv magnesium. patient became hypotensive with amiodarone (and significant beta blockade given) . started on iv phenylephrine infusion to maintain coronary perfusion pressure. patient did eventually convert to NSR. discussed at length with Dr. Gonzalez: he does not want to cath patient overnight. wants to stabilize and re-evaluate in AM. chest pain somewhat improved on nitro drip, phenylephrine drip, amio drip, prn morphine, prn lopressor. Objective Vital Signs Date Time Temp Pulse Resp B/P (MAP) Pulse Ox O2 Delivery O2 Flow Rate FiO2 10/10/17 00:58 93/64 10/10/17 00:55 109 10/10/17 00:00 98.4 27 94 10/09/17 20:00 Nasal Cannula 4.50 10/09/17 14:00 50 Intake and Output 10/10/17 10/10/17 10/10/17 07:59 15:59 23:59 Intake Total 450 ml Balance 450 ml Result Diagram: 10/09/17 0447 10/09/17446 Other Results Microbiology Date/Time Source Procedure Growth Status 10/07/17 23:20 Nasal Washing Influenza Types A,B Antigen (TAM) - Final NEGATIVE FOR FLU A AND B ANTIGEN.... Complete 10/07/17 20:20 Urine Catheterized Urine Legionella Antigen - Final PRESUMPTIVE NEGATIVE FOR LEGIONELLA P... Complete 10/07/17 20:20 Urine Catheterized Urine Streptococcus pneumoniae Antigen (M - Final PRESUMPTIVE NEGATIVE FOR STREPTOCOCCU... Complete Imaging Last Impressions Chest X-Ray 10/08/17 0600 Signed Impressions: CONCLUSION: Stable chest. Cardiomegaly. Abdomen X-Ray 10/08/17 0000 Signed Impressions: CONCLUSION: Tip of the NG tube inside the stomach. Objective Remarks HEENT/ Neuro: awake, alert, in acute distress due to chest pain. No pallor, no icterus, tongue/ mucosa moist Neck: No JVD Chest/Pulm: nc o2. equal chest rise. tachypneic. CVS: tachycardic rate in the 180s initially, irregularly irregular rhythm. appears afib by tele. GI/abdomen: soft, nontender, bowel sounds sluggish Extremities: warm bilaterally, trace edema A/P Assessment and Plan Assessment: 72yF with acute NSTEMI with active chest pain and now ischemic SVT. critically ill requiring active management at bedside. 72-year-old female with: Acute hypoxic respiratory failure- resolving Non-ST elevation NH Acute substernal chest pain Atrial Fibrillation with rapid ventricular response Acute coronary ischemia COPD Uncontrolled hypertension Hyperglycemia Plan: Neuro: morphine prn for chest pain. Cardiovascular: On heparin for anticoagulation. Aspirin. lopressor 5mg iv q5m for goal HR < 100. Dr. Gonzalez following. will need LHC in AM. continue amio drip. continue nitro drip. Pulmonary: wean o2 for goal spo2 > 94%. bronchodilators as needed. Solu- Medrol. GI/liver: NPO for possible LHC. otherwise advance diet as tolerated. Renal/: IV hydration, strict intake output, monitor and replete electrolyte, follow BN creatinine. ID: Follow-up cultures. Empiric antibiotic coverage with IV azithromycin/ cefepime initiated on 10/07 which will be continued Heme: Follow CBC and coags. On anticoagulation with heparin. Endocrine: Watch for hypoglycemia, SSI for glycemic control. Prophylaxis: Pepcid/SCDs. On anticoagulation with heparin. Condition critical Time spent on critical care excluding procedures 81 minutes Abhishek Das MD October 10, 2017 01:36
[2017-10-10] MEDS: AZITHROMYCIN INJ 500 MG in SODIUM CHLOR 0.9% 250 ML INJ 250 ML IV SCH (02:00)
[2017-10-10] MEDS: CHLORHEXIDINE GLUCONATE 2 % 1 PACK (2 CLOTHS) TOP SCH (04:00)
[2017-10-10] MEDS: CHLORHEXIDINE GLUCONATE 2 % 1 PACK (2 CLOTHS)(taper/protocol) TOPICAL SCH (04:00)
[2017-10-10] MEDS: INSULIN ASPART SUPPLEMENTAL SCALE SQ SCH ×6 (04:25→20:45)
[2017-10-10 04:37] LABS: AUTOMATED NEUTROPHIL # 28.6 TH/MM3 (1.8-7.7); BASOPHIL # 0.1 TH/MM3 (0-0.2); BASOPHIL % 0.2 % (0.0-2.0); HEMATOCRIT 44.8 % (35.0-46.0); LYMPH % 3.9 % (9.0-44.0); LYMPHOCYTE # 1.2 TH/MM3 (1.0-4.8); MEAN CELL VOLUME 83.7 FL (80.0-100.0); MEAN CORPUSCULAR HGB CONC 33.4 % (32.0-36.0); MEAN PLATELET VOLUME 7.4 FL (7.0-11.0); MONO % 4.5 % (0.0-8.0); MONOCYTE # 1.4 TH/MM3 (0-0.9); NEUT % 91.4 % (16.0-70.0); PLATELET COUNT 336 TH/MM3 (150-450); RED BLOOD COUNT 5.36 MIL/MM3 (4.00-5.30); RED CELL DISTRIBUTION WIDTH 15.1 % (11.6-17.2); WHITE BLOOD COUNT 31.3 TH/MM3 (4.0-11.0)
[2017-10-10 05:10] LABS: ALKALINE PHOSPHATASE 120 U/L (45-117); ALT (GPT) 38 U/L (10-53); AST (GOT) 118 U/L (15-37); BICARBONATE 27.1 MEQ/L (21.0-32.0); BLOOD UREA NITROGEN 18 MG/DL (7-18); CALCIUM 8.5 MG/DL (8.5-10.1); CHLORIDE 103 MEQ/L (98-107); CREATININE 0.77 MG/DL (0.50-1.00); GLOMERULAR FILTRATION RATE 74 ML/MIN (>89); GLUCOSE,RANDOM 279 MG/DL (74-106); SODIUM (NA) 141 MEQ/L (136-145); TOTAL BILIRUBIN ADULT 0.5 MG/DL (0.2-1.0); TOTAL PROTEIN 6.3 GM/DL (6.4-8.2)
[2017-10-10] MEDS: hydrALAZINE HCL 50 MG TAB PO SCH (05:10)
[2017-10-10] MEDS: methylPREDNISolone SOD SUCC 40 MG/1 ML VIAL IV PUSH SCH ×3 (05:10→21:01)
[2017-10-10] MEDS: RESP: LEVALBUTEROL HYDROCHLORIDE 1.25 MG/3 ML NEB (PRN) NEB ×3 (06:20→12:12)
[2017-10-10] MEDS: CEFEPIME INJ 2,000 MG in SODIUM CHLORIDE 0.9% INJ 100 ML IV SCH ×2 (07:38→20:47)
[2017-10-10] MEDS: FAMOTIDINE 20 MG/2 ML VIAL IV PUSH SCH ×2 (07:41→20:43)
[2017-10-10] MEDS: FUROSEMIDE 40 MG/4 ML VIAL IV PUSH SCH ×2 (07:44→17:12)
[2017-10-10] MEDS: DOCUSATE SODIUM 50 MG/SENNA 8.6 MG TAB PO SCH ×2 (07:49→20:49)
--- NOTE | 2017-10-10 07:49 | PD.CARD.PN ---
Subjective Subjective Remarks extubated, awake and alert. crushing chest pain overnight, afib RVR overnight which converted with amio. currently tachypneic without chest pain. (Anna Villasenor) Objective Medications Current Medications Medications (Trade) Dose Ordered Sig/Indu Route Start Time Stop Time Status Last Admin Propofol 100 ml @ 2.13 mls/hr TITRATE PRN IV 10/07/17 19:15 10/09/17 10:23 ([facility] Nursing Information) Patient in critical care unit? Ass... Q361D .XX 10/07/17 23:15 (Chlorhexidine 2% Cloth) 3 pack DAILY@04 TOPICAL 10/08/17 04:00 10/12/17 04:01 10/08/17 03:38 (Chlorhexidine 2% Cloth) 3 pack UNSCH PRN TOPICAL 10/07/17 23:15 10/12/17 23:00 (Aspirin Chew) 81 mg DAILY CHEW 10/08/17 09:00 10/09/17 08:35 (Lipitor) 10 mg HS PO 10/08/17 21:00 10/09/17 20:35 (Spiriva Inh) 2 mcg DAILY INH 10/08/17 09:00 Sodium Chloride 1,000 ml @ 84 mls/hr [id number] IV 10/08/17 00:47 10/09/17 22:57 (NS Flush) 2 ml UNSCH PRN IV FLUSH 10/08/17 01:00 (NS Flush) 2 ml BID IV FLUSH 10/08/17 09:00 10/09/17 20:36 (Tylenol) 650 mg Q6H PRN PO 10/08/17 01:00 (Dilaudid Pf Inj) 1 mg Q4H PRN IV PUSH 10/08/17 01:00 (Pepcid Inj) 20 mg Q12HR IV PUSH 10/08/17 09:00 10/09/17 20:36 (Ativan Inj) 1 mg Q1H PRN IV PUSH 10/08/17 01:00 10/10/17 06:23 (Tears Naturale Opth Soln) 1 drop TID EACH EYE 10/08/17 09:00 10/09/17 18:00 (Zofran Inj) 4 mg Q6H PRN IV PUSH 10/08/17 01:00 (Duoneb Neb) 1 ampule Q4HR NEB INH 10/08/17 04:00 10/10/17 02:57 ([facility] Nursing Information) 1 Q361D XX 10/08/17 01:00 (Chlorhexidine 2% Cloth) 3 pack Taper DAILY@04 TOP 10/08/17 04:00 10/04/18 03:59 10/10/17 04:00 (Chlorhexidine 2% Cloth) 3 pack UNSCH PRN TOP 10/08/17 01:00 (Stephanie-Colace) 1 tab BID PO 10/08/17 09:00 10/09/17 08:35 (Milk Of Magnesia Liq) 30 ml Q12H PRN PO 10/08/17 01:00 (Senokot) 17.2 mg Q12H PRN PO 10/08/17 01:00 (Dulcolax Supp) 10 mg DAILY PRN RECTAL 10/08/17 01:00 (Lactulose Liq) 30 ml DAILY PRN PO 10/08/17 01:00 Azithromycin 500 mg/Sodium Chloride 250 ml @ 250 mls/hr Q24H IV 10/08/17 02:00 10/10/17 02:00 (SoluMEDROL INJ) 40 mg Q8HR IV PUSH 10/08/17 06:00 10/10/17 05:10 Nicardipine HCl 25 mg/Sodium Chloride 260 ml @ 52 mls/hr TITRATE PRN IV 10/08/17 02:45 10/09/17 09:51 (Roxanol Liq) 10 mg Q4H OG-TUBE 10/08/17 09:00 10/09/17 20:37 (NovoLOG SUPPLEMENTAL SCALE) 1 Q4HR SQ 10/08/17 12:00 10/10/17 04:25 (D50w (Vial) Inj) 25 ml UNSCH PRN IV 10/08/17 09:15 (Glucagon Inj) 1 mg UNSCH PRN IM/SQ 10/08/17 09:15 (Lasix Inj) 40 mg DAILY IV PUSH 10/08/17 09:45 10/09/17 08:37 Heparin Sodium/ Dextrose 250 ml @ 9 mls/hr TITRATE PRN IV 10/08/17 09:45 10/10/17 01:02 (Apresoline) 50 mg Q8HR PO 10/08/17 09:45 10/10/17 05:10 Cefepime HCl 2000 mg/Sodium Chloride 100 ml @ 200 mls/hr Q12HR IV 10/08/17 21:00 10/09/17 20:37 Potassium Chloride 100 ml @ 50 mls/hr Q2H PRN IV 10/09/17 05:45 Potassium Chloride 100 ml @ 50 mls/hr Q2H PRN IV 10/09/17 05:45 10/09/17 08:43 (K-Lyte Cl Eff) 50 meq UNSCH PRN PO 10/09/17 05:45 Potassium Chloride 100 ml @ 25 mls/hr UNSCH PRN IV 10/09/17 05:45 Potassium Chloride 100 ml @ 50 mls/hr Q2H PRN IV 10/09/17 05:45 Magnesium Sulfate 4 gm/Sodium Chloride 100 ml @ 50 mls/hr UNSCH PRN IV 10/09/17 05:45 (Mag-Ox) 800 mg UNSCH PRN PO 10/09/17 05:45 Magnesium Sulfate 2 gm/Sodium Chloride 100 ml @ 50 mls/hr UNSCH PRN IV 10/09/17 05:45 (K-Phos) 2,000 mg Q4H PRN PO 10/09/17 05:45 Sodium Phosphate 30 mmol/Sodium Chloride 250 ml @ 42 mls/hr UNSCH PRN IV 10/09/17 05:45 (K-Phos) 2,000 mg UNSCH PRN PO/TUBE 10/09/17 05:45 Potassium Phosphate 30 mmol/ Sodium Chloride 260 ml @ 42 mls/hr UNSCH PRN IV 10/09/17 05:45 10/09/17 13:26 (Morphine Inj) 5 mg Q4H PRN IV PUSH 10/09/17 16:45 10/09/17 22:42 (Nitrostat Sl) 0.4 mg Q4H PRN SL 10/09/17 17:45 10/09/17 21:12 Nitroglycerin/ Dextrose 250 ml @ 1.5 mls/hr TITRATE PRN IV 10/09/17 17:45 10/09/17 23:17 (Lopressor Inj) 5 mg Q5M PRN IV PUSH 10/09/17 23:30 10/10/17 00:40 Phenylephrine HCl 40 mg/Dextrose 500 ml @ 30 mls/hr TITRATE PRN IV 10/10/17 00:30 10/10/17 00:58 (Brethine Inj) 1 mg UNSCH PRN SQ 10/10/17 00:30 Amiodarone HCl 450 mg/Sodium Chloride 259 ml @ 34.53 mls/ hr TITRATE PRN IV 10/10/17 00:30 10/10/17 00:45 (Xopenex Neb) 1.25 mg Q4HR NEB PRN NEB 10/10/17 05:15 10/10/17 06:20 Vital Signs / I&O Vital Signs Date Time Temp Pulse Resp B/P (MAP) Pulse Ox O2 Delivery O2 Flow Rate FiO2 10/10/17 06:00 76 10/10/17 04:00 97.9 76 29 111/63 (79) 91 10/10/17 04:00 76 10/10/17 02:00 72 10/10/17 00:58 93/64 10/10/17 00:55 109 10/10/17 00:45 119 93/64 10/10/17 00:30 118 10/10/17 00:00 132 10/10/17 00:00 98.4 132 27 94/56 (69) 94 10/09/17 23:17 111 160/74 10/09/17 22:00 112 10/09/17 20:00 94 Nasal Cannula 4.50 10/09/17 20:00 98.1 100 131/76 (94) 95 10/09/17 20:00 100 10/09/17 18:00 109 10/09/17 17:45 16 10/09/17 17:15 22 10/09/17 16:20 4 10/09/17 16:14 96 Nasal Cannula 4.00 10/09/17 16:00 98.4 106 18 154/82 (106) 97 10/09/17 16:00 106 10/09/17 15:50 95 Nasal Cannula 4 10/09/17 15:50 106 141/83 10/09/17 14:00 98.7 111 22 139/75 (96) 97 10/09/17 14:00 109 10/09/17 14:00 50 10/09/17 12:00 111 10/09/17 12:00 98.6 114 22 127/70 (89) 97 10/09/17 11:58 97 50 10/09/17 10:00 114 10/09/17 09:51 112 120/66 10/09/17 08:00 98.3 118 22 129/69 (89) 97 10/09/17 08:00 50 10/09/17 08:00 118 10/09/17 07:50 97 50 I/O 10/09/17 10/09/17 10/09/17 10/10/17 10/10/17 10/10/17 07:00 15:00 23:00 07:00 15:00 23:00 Intake Total 543 ml 100 ml 1400 ml 1040 ml Output Total 1250 ml 300 ml 600 ml Balance -707 ml 100 ml 1100 ml 440 ml Intake Oral 240 ml IV Total 100 ml 1400 ml 800 ml Tube Feeding 343 ml Other 200 ml Output Urine Total 1250 ml 300 ml 600 ml Stool Total 0 ml 0 ml Physical Exam GENERAL: alert and awake SKIN: Warm and dry. HEAD: Atraumatic. Normocephalic. EYES: Pupils equal and round. No scleral icterus. N ENT: No nasal bleeding or discharge. NECK: Trachea midline. No JVD. CARDIOVASCULAR: Regular rate and rhythm. no murmurs RESPIRATORY: tachypneic on nasal O2, Clear to auscultation. Breath sounds equal bilaterally. GASTROINTESTINAL: Abdomen soft, non-tender, nondistended. MUSCULOSKELETAL: Extremities without clubbing, cyanosis, or edema. No obvious deformities. NEUROLOGICAL:alert and oriented Laboratory Laboratory Tests Test 10/09/17 14:10 10/09/17 20:50 10/09/17 21:04 10/10/17 02:07 Activated Partial Thromboplast Time 37.8 SEC 31.5 SEC 36.1 SEC Troponin I 10.10 NG/ML 10.50 NG/ML Total Creatine Kinase 593 U/L Creatine Kinase MB 65.3 NG/ML Creatine Kinase MB % 11.0 % Test 10/10/17 04:30 White Blood Count 31.3 TH/MM3 Red Blood Count 5.36 MIL/MM3 Hemoglobin 15.0 GM/DL Hematocrit 44.8 % Mean Corpuscular Volume 83.7 FL Mean Corpuscular Hemoglobin 28.0 PG Mean Corpuscular Hemoglobin Concent 33.4 % Red Cell Distribution Width 15.1 % Platelet Count 336 TH/MM3 Mean Platelet Volume 7.4 FL Neutrophils (%) (Auto) 91.4 % Lymphocytes (%) (Auto) 3.9 % Monocytes (%) (Auto) 4.5 % Eosinophils (%) (Auto) 0.0 % Basophils (%) (Auto) 0.2 % Neutrophils # (Auto) 28.6 TH/MM3 Lymphocytes # (Auto) 1.2 TH/MM3 Monocytes # (Auto) 1.4 TH/MM3 Eosinophils # (Auto) 0.0 TH/MM3 Basophils # (Auto) 0.1 TH/MM3 CBC Comment AUTO DIFF Blood Urea Nitrogen 18 MG/DL Creatinine 0.77 MG/DL Random Glucose 279 MG/DL Total Protein 6.3 GM/DL Albumin 3.0 GM/DL Calcium Level 8.5 MG/DL Alkaline Phosphatase 120 U/L Aspartate Amino Transf (AST/SGOT) 118 U/L Alanine Aminotransferase (ALT/SGPT) 38 U/L Total Bilirubin 0.5 MG/DL Sodium Level 141 MEQ/L Potassium Level 3.6 MEQ/L Chloride Level 103 MEQ/L Carbon Dioxide Level 27.1 MEQ/L Anion Gap 11 MEQ/L Estimat Glomerular Filtration Rate 74 ML/MIN (Anna Villasenor) Assessment and Plan Problem List: (1) CAD (coronary artery disease) ICD Codes: I25.10 - CAD (coronary artery disease) Status: Acute (2) HTN (hypertension) ICD Codes: I10 - Essential (primary) hypertension Status: Acute Assessment and Plan 72 yo F with CAD, CABG x 5, prior MD, O2 dep COPD, diabetes, tobacco user and sleep apnea who presented to [place] ED with progressive SOB. NSTEMI- troponin elevation >40, trending downward extubated yesterday with crushing chest pain overnight developed afib RVR overnight which converted with amio. currently rate controlled in NSR currently on nitro, phenylephrine gtt and amio gtt plan for [facility] this afternoon (Anna Villasenor) Assessment and Plan NSTEMI with recurrent CP yesterday associated with afib RVR requiring electrical cardioversion recurrent CP symptoms + wheeze this am on nitro and heparin gtt WBC likely due to IV steroids discussed at length with goods layer plan for [facility] this am. goods layer available for intubation if needed (Ruslan Gonzalez MD) Anna Villasenor October 10, 2017 07:49 Ruslan Gonzalez MD October 10, 2017 08:46
[2017-10-10] MEDS: TIOTROPIUM BROMIDE 18 MCG INH INH SCH (07:54)
[2017-10-10] MEDS: ASPIRIN 81 MG CHEW TAB CHEW SCH (07:54)
[2017-10-10] MEDS: SODIUM CHLORIDE 0.9% FLUSH 10 ML FLUSH IV FLUSH SCH ×2 (07:54→20:50)
[2017-10-10] MEDS: ARTIFICIAL TEARS OPTH SOLN 15 ML BTL EACH EYE SCH ×3 (07:54→17:13)
[2017-10-10 09:04] LABS: BANDS 8 % (0-6); BASOPHILS 1 % (0-2); LYMPHOCYTES 5 % (9-44); MONOCYTES 5 % (0-8); NEUTROPHIL # MANUAL DIFF 27.9 TH/MM3 (1.8-7.7); POLYS (SEG NEUTROPHILS) 81 % (16-70)
--- NOTE | 2017-10-10 09:41 | RADRPT ---
EXAM DATE: 10/10/2017 9:18 AM EDT AGE/SEX: 72 years / Female INDICATIONS: Shortness of breath. CLINICAL DATA: This is the patient's subsequent encounter. Patient reports that signs and symptoms h ave been present for 1 day and indicates a pain score of Nonresponsive. MEDICAL/SURGICAL HISTORY: Non-responsive. Non-responsive. COMPARISON: [facility] [place], CHEST SINGLE AP, 10/08/2017. . FINDINGS: The heart is at the upper limits of normal in size. The patient is post median sternotomy. There is a left subclavian central line catheters in satisfactory position. The mediastinal contours are within normal limits. There are diffuse chronic appearing interstitial changes throughout the pulmonary parenchyma. These a re relatively stable compared to a previous study of 10/08/2017. The ET tube and nasogastric have been removed since the previous exam. The visualized osseous structures are grossly intact. CONCLUSION: 1. Interval removal of the endotracheal and nasogastric tubes. 2. Chronic interstitial changes within the pulmonary parenchyma. 3. The appearance of the parenchyma similar to the prior. Electronically signed by: Juno Jarrett MD 10/10/2017 9:39 AM EDT
[2017-10-10] MEDS ORDERED: HEPARIN-NS/PF INJ 1,000 ML ONE (10:03)
[2017-10-10] MEDS ORDERED: ATROPINE SULFATE 1 MG/ML VIAL IV PUSH PRN (11:00)
--- NOTE | 2017-10-10 11:05 | CATHPROC ---
[employer] HIS Report Study Information Study Number Admission Scheduled Start Study Start [id number] Oct 07 2017 8:56PM 10/10/2017 Oct 10 2017 9:41AM [place] Service Cardiac Catheterization Admit Source Facility Department Other [facility] - Field Application Engineer Physician and Clinical Staff Initial Ruslan Barragan Obgyn Hospitalist Physician Silvio Cho,WEI Recorder Dominique Mark,RT(R) Scrub Katerina Villalta ,RT(R) Procedures Performed Procedure Location (Site) Vessel Name Coronary Angiograms LCA Left Coronary Coronary Angiograms RCA Right Coronary Coronary Angiograms [place] Left Coronary Coronary Angiograms SVG-DIAG Left Coronary Coronary Angiograms SVG-OM CIRC Coronary Angiograms SVG-RCA Right Coronary L Heart Cath Equipment Time Orthotic Technician Description Size Mfg Part Number Used/Scraped TRANSDUCER, TRUWAVE [id number] 10:29 MARCANO CONNER * Used W/STOCKCOCK *[id number] 10:58 Loop Survey MEDICAL VASCADE, FR5 CLOSURE SYSTEM FR 5 Used *[id number] 534-560T *[id number] 534-520T *[id number] 534-521T *[id number] 534-542T *[id number] 10:29 [employer] PACK, CCL CUSTOM * Used *[id number] 10:29 Possibility Space PACER PEN, SKIN DUAL W/ RULER * Used *[id number] 10:02 Well[employer]ive WIRE, 3MMJ .035 180CM 180CM Used *[id number] 10:29 NAMIC MANIFOLD, 4 PORT * Used *[id number] 10:02 NYCOMED OMNIPAQUE, 350 MG, 150ML 150ML [id number] Used [id number] 10:29 [facility] BLANKET,WARM AIR CCL * Used *[id number] 10:02 Brand[employer]er MEDICAL SHEATH, FR5 TERUMO (10CM) FR 5 Used *[id number] History: Current Medications Medication Dosage/Unit Route Frequency Last Date/Time Taken ASA History: Allergies Allergy Reaction penicillin G Anaphylaxis History: Risk Factors Family History of Hypertension Dyslipidemia Previous MT Previous Heart Failure Premature CAD Yes Yes Yes Yes Yes Prior Valve Prior PCI Prior CABG Surgery No No Yes Cerebrovascular Peripheral Artery Chronic Lung On Dialysis Diabetes Disease Disease Disease No No No Yes Yes History: Other Current Smoker Method Packs a Day Years Used Pack Years Yes Cigarettes 1 55 55 Labs Hgb (g/dl) Hct (%) WBC (l/cumm) Platelets (thousands) 11.60-17.00 35.00-51.00 4.00-11.00 150.00-450.00 15.0 44.8 31.3 336 Glucose (mg/dl) BUN (mg/dl) Creatinine (mg/dl) BUN:Creatinine (1:x) 74.00-106.00 7.00-18.00 0.50-1.30 10.00-20.00 279 18 0.7 25.7 Na (meq/l) K (meq/l) 136.00-145.00 3.50-5.10 141 3.6 INR (PTT:PT) 0.90-1.10 1.1 Troponin I (ng/ml) CPK (u/l) CPK-MB (ng/ML) 0.02-0.05 26.00-308.00 0.50-3.60 0.5 593 Not Drawn Medication Medication Total Dose (Bolus/Oral) Medication Total Dosage/Unit 1% XYLOCAINE 20 mL Medications (Bolus/Oral) Medication Time Given Dosage/Unit Administered By Reason 1% XYLOCAINE 10/10/2017 10:22:18 AM 20 mL Ruslan Gonzalez 20 mL 1% XYLOCAINE given in lab by Ruslan Gonzalez in Right Groin via Subcutaneous. Medication (Drip) Medication Time Given Dosage/Unit Concentration/Unit Diluent (ml) Solutio n Amiodarone Drip 10/10/2017 10:07:14 AM 0.5 mg/min 450 mg 250 D5W Patient arrived on 0.5 mg/min Amiodarone Drip in Left shoulder via Central IV. Pump/Drip Flow = 16.67 ml/hr using D5W with a concentration of 450 mg in 250 ml. IV Solutions 10/10/2017 10:07:14 AM 50 mL (IV) NaCl .9 IV Solutions given in lab by Silvio Cho, WEI in Left shoulder via Central IV. Pump/Drip Flow using NaCl .9. DAVID-SYNEPHRINE 10/10/2017 10:07:14 AM 75 mcg/min 10 mg 250 D5W Patient arrived on 75 mcg/min DAVID-SYNEPHRINE in Left shoulder via Central IV. Pump/Drip Flow = 112.5 ml/hr using D5W with a concentration of 10 mg in 250 ml. NITROGLYCERIN DRIP 10/10/2017 10:07:14 AM 5 mcg/min 50 mg 250 D5W Patient arrived on 5 mcg/min NITROGLYCERIN DRIP in Left shoulder via Central IV. Pump/Drip Flow = 1.5 ml/hr using D5W with a concentration of 50 mg in 250 ml. Initial Case Assessment Cardiovascular HR NIBP Chest Pain 80 126/80 0 Skin color Skin Pale Warm Circulatory - Right Pulses Posterior Tibial Femoral 3 3 Scale (0,1,2,3,4,d) Circulatory - Left Pulses Posterior Tibial Femoral 2 1 Scale (0,1,2,3,4,d) Neurological State Oriented to time-place- Alert Moves all extremities person Respiration - General Respiration Rate SpO2 (%) O2 (lpm) (B/min) 28 93 5 Chronological Log Time Study Chronological Log 9:45:54 Patient arrived via Bed. 9:51:56 Patient Name, D.O.B, / Armband Verified By R.N. Assessment: Initial Case, HR=80 BPM, ZPCY=487/80 mmhg, Chest Pain=0, Color=Pale, Skin = Warm Right Pulses: Post Tib=3, Femoral=3 10:02:15 Left Pulses: Post Tib=2, Femoral=1 Neurological: State=Alert, Ox3, [place] Respiration: Resp=28 B/min, SpO2=93 %, O2=5 lpm Vitals capture started with the following parameters, Patient=Adult, Interval=5 min, Initial P ywzeewr=180 mmHg, 10:02:18 Deflation Rate=5 mmHg, Cuff placed on Right Arm 10:03:00 HR=80 bpm, CGCP=189/80 mmhg, SpO2=93.0 %, Resp=28 B/min, Jake=8 10:06:54 Consent signed by the physician and the patient and verified by the Field Application Engineer staff. 10:06:57 Pre-op and post- op instructions given; patient acknowledges understanding of instructions . 10:06:58 Verbal Stimulation=2 Physical Stimulation=1 Airway=2 Respiration=1 TOTAL=6. (0=absent, 1=l imited, 2=present) 10:07:06 Reference ECG taken 10:07:09 Patient has been NPO for More than 6Hrs. 10:07:09 Skin Breakdown- none 10:07:10 Patient Warmer Placed on the Table. 10:07:12 Helen Prominences Protected 10:07:13 IV was noted in the left Subclav. Vein Patient arrived on 5 mcg/min NITROGLYCERIN DRIP in Left shoulder via Central IV. Pump/Drip Phuc w = 1.5 ml/hr using D5W with a concentration of 50 mg in 250 ml. Patient arrived on 75 mcg/min DAVID-SYNEPHRINE in Left shoulder via Central IV. Pump/Drip Flow = 112.5 ml/hr using D5W with a concentration of 10 mg in 250 ml. 10:07:14 IV Solutions given in lab by Silvio Cho RN in Left shoulder via Central IV. Pump/Drip Flow using NaCl .9. Patient arrived on 0.5 mg/min Amiodarone Drip in Left shoulder via Central IV. Pump/Drip Flow = 16.67 ml/hr using D5W with a concentration of 450 mg in 250 ml. 10:07:15 History and physical on the chart or being dictated. 10:07:21 Bilateral groins prepped with 2% chlorhexidine, and draped after a 3 minute waiting time. 10:07:53 HR=82 bpm, AJAB=663/84 mmhg, SpO2=93.0 %, Resp=32 B/min 10:11:53 MD paged 10:12:56 HR=78 bpm, LXKM=617/76 mmhg, SpO2=92.0 %, Resp=27 B/min 10:14:36 Pressure channel 1 zeroed. 10:16:38 MD arrived. 10:17:53 HR=78 bpm, QZYX=247/80 mmhg, SpO2=93.0 %, Resp=27 B/min Time Out. Correct patient, correct procedure, correct physician, labs, allergies, and equipment verified with collaborative physician 10:21:32 team present. Fire risk assesment completed (see hard stop sheet for coding). Time Out Conc urred by MD and individual staff in procedure. 10:22:09 Case Start 10:22:18 20 mL 1% XYLOCAINE given in lab by Ruslan Gonzalez in Right Groin via Subcutaneous. 10:22:54 HR=80 bpm, YFHN=484/80 mmhg, SpO2=93.0 %, Resp=28 B/min 10:23:38 Access site was Right Femoral Artery. 10:24:04 A SHEATH, FR5 TERUMO (10CM) FR 5 was advanced into the Fem Art (right) using the [place] us technique. A JL 4.0 INFINITI CATHETER FR 5 was advanced over a wire. OMNIPAQUE, 350 MG, 150ML 150ML was us ed for 10:25:07 injections. After removing the current catheter a JL 5.0 INFINITI CATHETER FR 5 was advanced over a WIRE, 3 MMJ .035 180CM 10:26:18 180CM. Recorded Pressure: Ao, HR=84, Condition=Condition 1 10:27:41 (Aorta) Ao 132/76/99 10:27:55 HR=80 bpm, SEPZ=698/72 mmhg, SpO2=92.0 %, Resp=24 B/min 10:28:07 The LCA was injected and visualized at various angles. OMNIPAQUE, 350 MG, 150ML 150ML used . After removing the current catheter a JR 4.0 INFINITI CATHETER FR 5 was advanced over a WIRE, 3 MMJ .035 180CM 10:28:58 180CM. Recorded Pressure: LV, HR=85, Condition=Condition 1 10:30:17 (Left Ventricle) LV 115/22/33 Recorded Pressure: LV, Ao, HR=85, Condition=Condition 1 10:30:36 (Left Ventricle) LV 114/23/33, (Aorta) Ao 122/71/92 10:31:18 The RCA was injected and visualized at various angles. OMNIPAQUE, 350 MG, 150ML 150ML used . 10:32:22 The SVG-DIAG was injected and visualized at various angles. OMNIPAQUE, 350 MG, 150ML 150ML used. 10:32:52 HR=90 bpm, RWGU=346/77 mmhg, SpO2=92.0 %, Resp=29 B/min 10:33:29 The SVG-OM was injected and visualized at various angles. OMNIPAQUE, 350 MG, 150ML 150ML us ed. 10:35:41 The SVG-RCA was injected and visualized at various angles. OMNIPAQUE, 350 MG, 150ML 150ML u sed. stump After removing the current catheter a [place] INFINITI CATHETER FR 5 was advanced over a WIRE, 3MMJ .035 180CM 10:35:57 180CM. 10:37:53 HR=86 bpm, PNSH=242/78 mmhg, SpO2=93.0 %, Resp=29 B/min 10:39:11 The [place] was injected and visualized at various angles. OMNIPAQUE, 350 MG, 150ML 150ML used. After removing the current catheter a MPA-2 INFINITI CATHETER FR 5 was advanced over a WIRE, 3M MJ .035 180CM 10:41:38 180CM. 10:42:56 HR=83 bpm, VCON=853/72 mmhg, SpO2=92.0 %, Resp=27 B/min After removing the current catheter a JL 5.0 INFINITI CATHETER FR 5 was advanced over a WIRE, 3MMJ .035 180CM 10:46:51 180CM. 10:47:55 HR=84 bpm, SWIE=439/76 mmhg, SpO2=92.0 %, Resp=28 B/min 10:51:15 Catheter was removed 10:51:43 Case End 10:52:56 HR=84 bpm, LIYH=465/82 mmhg, SpO2=92.0 %, Resp=28 B/min 10:57:47 VASCADE, FR5 CLOSURE SYSTEM FR 5 placement in the Fem Art (right) 10:57:55 HR=83 bpm, SIYI=422/85 mmhg, SpO2=92.0 %, Resp=30 B/min 10:58:05 Sterile dressing applied to site 10:58:06 No case complications noted. 10:58:07 Cine recording checked. 10:58:10 Bedside Report will be given. 10:58:11 Report called to floor. 10:58:11 Implantable Device card placed in patient's chart. 10:58:17 A Left Heart Cath was performed. 11:02:58 HR=84 bpm, KSHI=140/85 mmhg, SpO2=91.0 %, Resp=27 B/min 11:05:00 Patient moved to bed End Study - Contrast Media Used In Study Contrast Total Opened (mL) Total Used (mL) Total Wasted (mL) Omnipaque 100 100 0 End Study - Maximum Contrast Load Max Contrast Load (mL) 529.9 End Study - Radiation Exposure Fluoro Time (minutes) 9.1 End Study - Patient Disposition Complications Transferred To Interventional Outcome No Telemetry Bed No attempt made
[2017-10-10] MEDS: ISOSORBIDE MONONITRATE 60 MG CR TAB (IMDUR) PO SCH ×2 (11:15→21:01)
--- NOTE | 2017-10-10 11:30 | MA ---
cc: Ruslan Gonzalez MD DATE: 10/10/2017 INDICATION: Non-ST elevation myocardial infarction. PROCEDURES PERFORMED: 1. Fluoroscopy with interpretation. 2. Coronary angiography. 3. Left heart catheterization. 4. Coronary artery bypass graft angiography. METHOD: Risks, benefits and alternatives discussed with the patient. The patient understood and consented to the procedure. The patient brought into the catheterization lab, and placed on the catheterization table. The right groin prepped and draped in a sterile fashion. The right groin was anesthetized with 2% lidocaine. The right common femoral artery was cannulated. A 5-Estonian 11 cm sheath was placed without difficulty. CORONARY ANGIOGRAPHY: 1. Left main coronary artery appears to be 99% stenosed with heavy calcium present. 2. Proximal left anterior descending coronary artery is subtotally occluded, but does give rise to a moderate-sized first diagonal branch which is fed antegrade from the [place] coronary. The left anterior descending coronary is then occluded just beyond the takeoff of its diagonal branch. 3. Left circumflex is subtotally occluded. It has an occluded first obtuse marginal branch and the remainder of the circumflex is a small caliber size. 4. Right coronary artery is occluded in the proximal to mid segment and collateralized from [id number] collaterals. CORONARY BYPASS GRAFT ANGIOGRAPHY: 1. Left internal mammary to the left anterior descending coronary artery is widely patent. It does backfill to the septal perforators. Moderate diffuse disease throughout. 2. Saphenous vein graft to the diagonal branch has 2 tandem 50 percent stenoses present. Diagonal branch is small in caliber size. This is diagonal branch #2. 3. Saphenous vein graft to the obtuse marginal branch is widely patent. There are mild luminal irregularities. 4. The saphenous vein graft to the right coronary artery is occluded. 5. The jump graft from the posterior descending to the posterolateral branch is occluded. LEFT HEART CATHETERIZATION: Intraventricular hemodynamics measured 114/23 mmHg with a left ventricular end-diastolic pressure of 33 mmHg. CONCLUSIONS: 1. Severe 3-vessel [place] coronary artery disease. 2. Three of five coronary bypass grafts are patent. 3. Elevated left-sided filling pressures. PLAN: Saphenous vein graft to the right coronary and jump graft are occluded, but well collateralized and unlikely to be the culprit. The other grafts appear patent. The diagonal graft does have moderate disease, but would not be causing resting symptoms. The first diagonal branch is fed through the [place] coronary system within a 99% occluded left main which could be a very high risk intervention. At this point, I think it would be best to attempt aggressive medical management. We will initiate long-acting nitrate in addition or ranolazine. Her left ventricular end-diastolic pressure is also elevated, so we will increase her Lasix to twice daily. Ruslan Gonzalez MD SETH/DL , 11:07 AM , 11:29 AM
[2017-10-10] MEDS: RANOLAZINE 500 MG EXTENDED RELEASE TAB PO SCH ×2 (12:45→21:01)
--- NOTE | 2017-10-10 14:04 | EKG ---
Date Performed: 10/10/2017 Time Performed: 00:43:20 PTAGE: 72 years EKG: Atrial fibrillation with rapid ventricular response. Left axis deviation IV conduction defe ct Possible left ventricular hypertrophy Extensive ST-T changes are probably due to ventricular hyper trophy Abnormal ECG NO PREVIOUS TRACING DOCTOR: Ruslan Gonzalez Interpretating Date/Time 10/10/2017 14:03:02
--- NOTE | 2017-10-10 14:05 | EKG ---
Date Performed: 10/09/2017 Time Performed: 23:51:18 PTAGE: 72 years EKG: Atrial fibrillation with rapid ventricular response with PVC(s). Left axis deviation IV con duction defect LVH with secondary repolarization abnormality Marked precordial ST depression, CONSIDE R ACUTE INFARCT Extensive ST-T changes are probably due to ventricular hypertrophy Abnormal ECG PREVIOUS TRACING : 10/09/2017 18.00 DOCTOR: Ruslan Gonzalez Interpretating Date/Time 10/10/2017 14:03:34
--- NOTE | 2017-10-10 14:11 | EKG ---
Date Performed: 10/09/2017 Time Performed: 18:00:10 PTAGE: 72 years EKG: SINUS TACHYCARDIA POSSIBLE LEFT ATRIAL ENLARGEMENT MARKED LEFT AXIS DEVIATION SEPTAL MYOCAR DIAL INFARCTION , OF INDETERMINATE AGE ST DEVIATION AND MODERATE T-WAVE ABNORMALITY, CONSIDER LATERAL ISCHEMIA ABNORMAL ECG PREVIOUS TRACING : 10/08/2017 01.29 DOCTOR: Ruslan Gonzalez Interpretating Date/Time 10/10/2017 14:10:21
[2017-10-10] MEDS ORDERED: IOHEXOL 350 MG/ML 100 ML BTL (for Cath Lab) OTHER ONE (14:14)
--- NOTE | 2017-10-10 14:41 | ECHRPT ---
Indication: Chest pain CONCLUSIONS Moderately dilated left ventricle. Wall thickness is normal. The left ventricular systolic function is moderately reduced with an estimated ejection fraction in the range of 40-45%. mild to moderate mitral valve regurgitation. Aortic valve sclerosis is present. Trace aortic valve regurgitation. There is trace tricuspid valve regurgitation. BP: / HR: Rhythm: MEASUREMENTS (Male / Female) Normal Values Technical Quality: 2D ECHO LV Diastolic Diameter PLAX 5.3 cm 4.2 - 5.9 / 3.9 - 5.3 cm LV Systolic Diameter PLAX 4.4 cm IVS Diastolic Thickness 1.1 cm 0.6 - 1.0 / 0.6 - 0.9 cm LVPW Diastolic Thickness 0.7 cm 0.6 - 1.0 / 0.6 - 0.9 cm LV Relative Wall Thickness 0.3 RV Internal Dim ED PLAX 1.9 cm DOPPLER MR Peak Velocity 545.0 cm/s MR Peak Gradient 118.8 mmHg TR Peak Velocity 221.5 cm/s TR Peak Gradient 19.6 mmHg Right Atrial Pressure 5.0 mmHg Pulmonary Artery Systolic Pressu 24.6 mmHg Right Ventricular Systolic Press 24.6 mmHg FINDINGS LEFT VENTRICLE Moderately dilated left ventricle. Wall thickness is normal. The left ventricular systolic function is moderately reduced with an estimated ejection fraction in the range of 40-45%. RIGHT VENTRICLE Normal right ventricular size and systolic function. LEFT ATRIUM The left atrial size is normal. RIGHT ATRIUM The right atrial size is normal. ATRIAL SEPTUM Normal atrial septal thickness without atrial level shunting by limited color doppler interrogation. AORTA The aortic root and proximal ascending aorta are normal in size on limited imaging. MITRAL VALVE [id number] mitral valve regurgitation. AORTIC VALVE Aortic valve sclerosis is present. Trace aortic valve regurgitation. TRICUSPID VALVE There is trace tricuspid valve regurgitation. PULMONARY VALVE No pulmonary valve regurgitation or stenosis. VESSELS The inferior vena cava is normal in size. PERICARDIUM No pericardial effusion. Colin Christian MD, FACC, FSCAI (Electronically Signed) Final Date:10 Oct 2017 14:40
[2017-10-10] MEDS: ATORVASTATIN 10 MG TAB PO SCH (20:49)
[2017-10-11] VITALS (37 sets, daily range): BP systolic 73–129; BP diastolic 47–73; PULSE 66–94; RESP 16–43; TEMP 97.7–98.4; O2SAT 92–97
[2017-10-11] MEDS: INSULIN ASPART SUPPLEMENTAL SCALE SQ SCH ×6 (01:03→20:08)
[2017-10-11] MEDS: AZITHROMYCIN INJ 500 MG in SODIUM CHLOR 0.9% 250 ML INJ 250 ML IV SCH (01:23)
[2017-10-11] MEDS: MORPHINE SULFATE ORAL SOLN 10 MG/0.5 ML SYRINGE OG-TUBE SCH ×6 (01:23→20:10)
[2017-10-11] MEDS: RESP: ALBUTEROL 2.5 MG/IPRATROPIUM 0.5 MG NEB (SCH) INH ×6 (03:33→23:57)
[2017-10-11] MEDS: CHLORHEXIDINE GLUCONATE 2 % 1 PACK (2 CLOTHS)(taper/protocol) TOPICAL SCH (04:00)
[2017-10-11] MEDS: CHLORHEXIDINE GLUCONATE 2 % 1 PACK (2 CLOTHS) TOP SCH (04:00)
[2017-10-11 05:08] LABS: HEMATOCRIT 41.5 % (35.0-46.0); HEMOGLOBIN 13.9 GM/DL (11.6-15.3); MEAN CELL VOLUME 83.8 FL (80.0-100.0); MEAN CORPUSCULAR HEMOGLOBIN 28.1 PG (27.0-34.0); MEAN CORPUSCULAR HGB CONC 33.5 % (32.0-36.0); MEAN PLATELET VOLUME 7.8 FL (7.0-11.0); PLATELET COUNT 226 TH/MM3 (150-450); RED BLOOD COUNT 4.95 MIL/MM3 (4.00-5.30); RED CELL DISTRIBUTION WIDTH 14.8 % (11.6-17.2); WHITE BLOOD COUNT 15.8 TH/MM3 (4.0-11.0)
[2017-10-11] MEDS: methylPREDNISolone SOD SUCC 40 MG/1 ML VIAL IV PUSH SCH ×3 (06:36→20:11)
[2017-10-11] MEDS: ISOSORBIDE MONONITRATE 60 MG CR TAB (IMDUR) PO SCH ×2 (06:42→20:10)
--- NOTE | 2017-10-11 08:33 | PD.CARD.PN ---
Subjective Subjective Remarks awake and alert. clinically improved. denies chest pain or sob. (Anna Villasenor) Objective Medications Current Medications Medications (Trade) Dose Ordered Sig/Indu Route Start Time Stop Time Status Last Admin Propofol 100 ml @ 2.13 mls/hr TITRATE PRN IV 10/07/17 19:15 10/09/17 10:23 ([facility]) Patient in critical care unit? Ass... Q361D .XX 10/07/17 23:15 (Chlorhexidine 2% Cloth) 3 pack DAILY@04 TOPICAL 10/08/17 04:00 10/12/17 04:01 10/08/17 03:38 (Chlorhexidine 2% Cloth) 3 pack UNSCH PRN TOPICAL 10/07/17 23:15 10/12/17 23:00 (Aspirin Chew) 81 mg DAILY CHEW 10/08/17 09:00 10/10/17 07:54 (Lipitor) 10 mg HS PO 10/08/17 21:00 10/10/17 20:49 (Spiriva Inh) 2 mcg DAILY INH 10/08/17 09:00 (NS Flush) 2 ml UNSCH PRN IV FLUSH 10/08/17 01:00 (NS Flush) 2 ml BID IV FLUSH 10/08/17 09:00 10/10/17 20:50 (Tylenol) 650 mg Q6H PRN PO 10/08/17 01:00 (Dilaudid Pf Inj) 1 mg Q4H PRN IV PUSH 10/08/17 01:00 (Pepcid Inj) 20 mg Q12HR IV PUSH 10/08/17 09:00 10/10/17 20:43 (Ativan Inj) 1 mg Q1H PRN IV PUSH 10/08/17 01:00 10/10/17 06:23 (Tears Naturale Opth Soln) 1 drop TID EACH EYE 10/08/17 09:00 10/09/17 18:00 (Zofran Inj) 4 mg Q6H PRN IV PUSH 10/08/17 01:00 (Duoneb Neb) 1 ampule Q4HR NEB INH 10/08/17 04:00 10/11/17 08:22 ([facility]) 1 Q361D XX 10/08/17 01:00 (Chlorhexidine 2% Cloth) 3 pack Taper DAILY@04 TOP 10/08/17 04:00 10/04/18 03:59 10/11/17 04:00 (Chlorhexidine 2% Cloth) 3 pack UNSCH PRN TOP 10/08/17 01:00 (Stephanie-Colace) 1 tab BID PO 10/08/17 09:00 10/10/17 20:49 (Milk Of Magnesia Liq) 30 ml Q12H PRN PO 10/08/17 01:00 (Senokot) 17.2 mg Q12H PRN PO 10/08/17 01:00 (Dulcolax Supp) 10 mg DAILY PRN RECTAL 10/08/17 01:00 (Lactulose Liq) 30 ml DAILY PRN PO 10/08/17 01:00 Azithromycin 500 mg/Sodium Chloride 250 ml @ 250 mls/hr Q24H IV 10/08/17 02:00 10/11/17 01:23 (SoluMEDROL INJ) 40 mg Q8HR IV PUSH 10/08/17 06:00 10/11/17 06:36 Nicardipine HCl 25 mg/Sodium Chloride 260 ml @ 52 mls/hr TITRATE PRN IV 10/08/17 02:45 10/09/17 09:51 (Roxanol Liq) 10 mg Q4H OG-TUBE 10/08/17 09:00 10/11/17 06:36 (NovoLOG SUPPLEMENTAL SCALE) 1 Q4HR SQ 10/08/17 12:00 10/11/17 04:31 (D50w (Vial) Inj) 25 ml UNSCH PRN IV 10/08/17 09:15 (Glucagon Inj) 1 mg UNSCH PRN IM/SQ 10/08/17 09:15 Cefepime HCl 2000 mg/Sodium Chloride 100 ml @ 200 mls/hr Q12HR IV 10/08/17 21:00 10/10/17 20:47 Potassium Chloride 100 ml @ 50 mls/hr Q2H PRN IV 10/09/17 05:45 Potassium Chloride 100 ml @ 50 mls/hr Q2H PRN IV 10/09/17 05:45 10/09/17 08:43 (K-Lyte Cl Eff) 50 meq UNSCH PRN PO 10/09/17 05:45 Potassium Chloride 100 ml @ 25 mls/hr UNSCH PRN IV 10/09/17 05:45 Potassium Chloride 100 ml @ 50 mls/hr Q2H PRN IV 10/09/17 05:45 Magnesium Sulfate 4 gm/Sodium Chloride 100 ml @ 50 mls/hr UNSCH PRN IV 10/09/17 05:45 (Mag-Ox) 800 mg UNSCH PRN PO 10/09/17 05:45 Magnesium Sulfate 2 gm/Sodium Chloride 100 ml @ 50 mls/hr UNSCH PRN IV 10/09/17 05:45 (K-Phos) 2,000 mg Q4H PRN PO 10/09/17 05:45 Sodium Phosphate 30 mmol/Sodium Chloride 250 ml @ 42 mls/hr UNSCH PRN IV 10/09/17 05:45 (K-Phos) 2,000 mg UNSCH PRN PO/TUBE 10/09/17 05:45 Potassium Phosphate 30 mmol/ Sodium Chloride 260 ml @ 42 mls/hr UNSCH PRN IV 10/09/17 05:45 10/09/17 13:26 (Morphine Inj) 5 mg Q4H PRN IV PUSH 10/09/17 16:45 10/09/17 22:42 (Nitrostat Sl) 0.4 mg Q4H PRN SL 10/09/17 17:45 10/09/17 21:12 Nitroglycerin/ Dextrose 250 ml @ 1.5 mls/hr TITRATE PRN IV 10/09/17 17:45 10/09/17 23:17 (Lopressor Inj) 5 mg Q5M PRN IV PUSH 10/09/17 23:30 10/10/17 00:40 Phenylephrine HCl 40 mg/Dextrose 500 ml @ 30 mls/hr TITRATE PRN IV 10/10/17 00:30 10/10/17 07:46 (Brethine Inj) 1 mg UNSCH PRN SQ 10/10/17 00:30 (Xopenex Neb) 1.25 mg Q4HR NEB PRN NEB 10/10/17 05:15 10/10/17 12:12 (Atropine Inj) 0.5 mg UNSCH PRN IV PUSH 10/10/17 11:00 (Imdur) 60 mg BID@0700,2100 PO 10/10/17 11:15 10/11/17 06:42 (Ranexa) 1,000 mg Q12HR PO 10/10/17 11:15 10/10/17 21:01 (Lasix Inj) 40 mg BID@0900,1800 IV PUSH 10/10/17 18:00 10/10/17 17:12 Vital Signs / I&O Vital Signs Date Time Temp Pulse Resp B/P (MAP) Pulse Ox O2 Delivery O2 Flow Rate FiO2 10/11/17 08:22 94 Nasal Cannula 2.00 10/11/17 06:44 80 10/11/17 04:25 97.8 69 17 96/61 (73) 95 10/11/17 04:00 72 19 83/50 (61) 94 10/11/17 04:00 67 10/11/17 03:33 95 Nasal Cannula 2.00 10/11/17 03:08 73 10/11/17 03:00 79 21 105/65 (78) 96 10/11/17 02:00 76 21 110/65 (80) 95 10/11/17 01:07 74 10/11/17 01:00 73 20 113/66 (82) 94 10/11/17 00:00 97.7 70 19 109/66 (80) 95 10/10/17 23:00 70 13 98/59 (72) 95 10/10/17 22:00 71 18 100/63 (75) 95 10/10/17 22:00 70 10/10/17 21:10 76 22 120/71 (87) 96 10/10/17 21:00 72 17 125/73 (90) 97 10/10/17 20:41 96 Nasal Cannula 5.00 10/10/17 20:05 96 Nasal Cannula 5.00 10/10/17 20:01 98.2 69 24 101/58 (72) 96 10/10/17 20:00 72 10/10/17 19:58 75 23 99/58 (72) 96 10/10/17 19:30 71 24 95/51 (66) 98 10/10/17 19:21 70 25 96/52 (67) 98 10/10/17 19:15 74 29 96/50 (65) 97 10/10/17 19:00 72 28 90/55 (67) 94 10/10/17 19:00 70 90/55 10/10/17 18:00 78 10/10/17 17:46 89 36 135/62 (86) 91 530/18 17:30 71 22 114/62 (79) 97 5/30/18 17:30 71 22 114/62 (79) 97 530/18 17:15 74 37 98/57 (71) 98 5/30/18 17:15 74 37 98/57 (71) 98 5/30/18 17:00 79 39 90/53 (65) 97 3018 17:00 79 39 90/53 (65) 97 30/18 16:45 77 530/18 16:45 77 20 101/60 (74) 98 30/18 16:30 78 23 94/55 (68) 98 10/10/18 16:30 78 10/10/18 16:15 74 20 112/68 (83) 98 18 16:15 74 30/18 16:00 97.7 72 26 112/64 (80) 98 18 16:00 72 18 15:45 72 23 109/68 (82) 98 18 15:45 72 23 109/68 (82) 98 18 15:45 72 30/18 15:30 71 22 104/66 (79) 97 10/10/18 15:30 71 30/18 15:30 71 22 104/66 (79) 97 10/10/18 15:15 69 24 101/63 (76) 98 5/30/18 15:15 69 5/30/18 15:15 69 24 101/63 (76) 98 530/18 15:00 68 26 97/59 (72) 98 530/18 15:00 68 5/30/18 15:00 68 26 97/59 (72) 98 530/18 14:45 69 28 93/58 (70) 97 30/18 14:45 69 28 93/58 (70) 97 30/18 14:45 69 5/30/18 14:30 70 5/30/18 14:30 70 73 96/59 (71) 98 5/30/18 14:30 70 73 96/59 (71) 98 30/18 14:15 74 27 91/55 (67) 97 530/18 14:15 74 27 91/55 (67) 97 10/10/17 14:15 74 10/10/17 14:00 72 10/10/17 14:00 72 21 97/58 (71) 98 18 14:00 72 21 97/58 (71) 98 18 13:45 83 31 105/67 (80) 98 18 13:45 83 31 105/67 (80) 98 18 13:45 83 18 13:30 71 22 110/67 (81) 98 18 13:30 71 18 13:30 71 22 110/67 (81) 98 18 13:15 74 23 121/74 (90) 99 10/10/17 13:15 74 23 121/74 (90) 99 10/10/17 13:15 74 10/10/17 13:00 83 10/10/17 13:00 83 24 124/74 (91) 100 10/10/17 13:00 83 24 124/74 (91) 100 10/10/17 12:45 79 10/10/17 12:45 79 27 127/74 (91) 98 10/10/17 12:45 79 27 127/74 (91) 98 10/10/17 12:30 81 10/10/17 12:30 81 28 139/80 (99) 99 10/10/17 12:30 81 28 139/80 (99) 99 10/10/17 12:17 90 10/10/17 12:15 90 49 137/85 (102) 95 10/10/17 12:15 90 49 137/85 (102) 95 10/10/17 12:15 90 10/10/17 12:00 87 41 143/91 (108) 96 10/10/17 12:00 87 10/10/17 12:00 87 41 143/91 (108) 96 10/10/17 11:45 86 35 140/88 (105) 90 10/10/17 11:30 84 32 138/84 (102) 91 10/10/17 08:49 22 I/O 10/10/17 10/10/17 10/10/17 10/11/17 10/11/17 10/11/17 07:00 15:00 23:00 07:00 15:00 23:00 Intake Total 1040 ml 142 ml 485 ml 550 ml Output Total 600 ml 2450 ml 650 ml Balance 440 ml 142 ml -1965 ml -100 ml Intake Oral 240 ml 380 ml 300 ml IV Total 800 ml 142 ml 105 ml 250 ml Output Urine Total 600 ml 2450 ml 650 ml Stool Total 0 ml 0 ml Physical Exam GENERAL: alert and awake SKIN: Warm and dry. HEAD: Atraumatic. Normocephalic. EYES: Pupils equal and round. No scleral icterus. ENT: No nasal bleeding or discharge. NECK: Trachea midline. No JVD. CARDIOVASCULAR: Regular rate and rhythm. no murmurs RESPIRATORY: tachypneic on nasal O2, Clear to auscultation. Breath sounds equal bilaterally. GASTROINTESTINAL: Abdomen soft, non-tender, nondistended. MUSCULOSKELETAL: Extremities without clubbing, cyanosis, or edema. No obvious deformities. NEUROLOGICAL:alert and oriented Laboratory Laboratory Tests Test 10/11/17 03:45 White Blood Count 15.8 TH/MM3 Red Blood Count 4.95 MIL/MM3 Hemoglobin 13.9 GM/DL Hematocrit 41.5 % Mean Corpuscular Volume 83.8 FL Mean Corpuscular Hemoglobin 28.1 PG Mean Corpuscular Hemoglobin Concent 33.5 % Red Cell Distribution Width 14.8 % Platelet Count 226 TH/MM3 Mean Platelet Volume 7.8 FL Imaging Last 48 hours Impressions Chest X-Ray 10/10/17 0000 Signed Impressions: CONCLUSION: 1. Interval removal of the endotracheal and nasogastric tubes. 2. Chronic interstitial changes within the pulmonary parenchyma. 3. The appearance of the parenchyma similar to the prior. (Anna Villasenor) Assessment and Plan Problem List: (1) CAD (coronary artery disease) ICD Codes: I25.10 - CAD (coronary artery disease) Status: Acute (2) HTN (hypertension) ICD Codes: I10 - Essential (primary) hypertension Status: Acute Assessment and Plan 72 yo F with CAD, CABG x 5, prior VT, O2 dep COPD, diabetes, tobacco user and sleep apnea who presented with progressive SOB. developed afib RVR 2 days ago which converted with amio. currently rate controlled in NSR NSTEMI- LHC yesterday revealed 3/5 grafts patent, left main 99% stenosis and heavily calcified, high risk for intervention being medically managed. Imdur and Ranexa added; lasix increased. clinically improving (Anna Villasenor) Assessment and Plan continue medical mgt with isosorbide /ranexa continue diuretic will sign off call with further questions (Ruslan Gonzalez MD) Anna Villasenor October 11, 2017 08:33 Ruslan Gonzalez MD October 11, 2017 13:11
[2017-10-11] MEDS: DOCUSATE SODIUM 50 MG/SENNA 8.6 MG TAB PO SCH ×2 (08:45→20:10)
[2017-10-11] MEDS: RANOLAZINE 500 MG EXTENDED RELEASE TAB PO SCH ×2 (08:45→20:10)
[2017-10-11] MEDS: ASPIRIN 81 MG CHEW TAB CHEW SCH (08:45)
[2017-10-11] MEDS: CEFEPIME INJ 2,000 MG in SODIUM CHLORIDE 0.9% INJ 100 ML IV SCH (08:46)
[2017-10-11] MEDS: FAMOTIDINE 20 MG/2 ML VIAL IV PUSH SCH ×2 (08:46→20:09)
[2017-10-11] MEDS: SODIUM CHLORIDE 0.9% FLUSH 10 ML FLUSH IV FLUSH SCH ×2 (08:47→20:08)
[2017-10-11] MEDS: FUROSEMIDE 40 MG/4 ML VIAL IV PUSH SCH ×2 (08:56→18:02)
[2017-10-11] MEDS: ARTIFICIAL TEARS OPTH SOLN 15 ML BTL EACH EYE SCH ×3 (09:00→17:51)
--- NOTE | 2017-10-11 09:09 | HHI.CCPN ---
Subjective Remarks/Hospital Course 10/08: 72-year-old female who was rushed in by private vehicle, family member brought her in complaining of severe shortness of breath, not improved by her own home nebulizers, or her home oxygen. Per family member this started about 30-45 minutes prior to arrival and had a sudden onset of severity. According to family she was not complaining of any chest pain or anything along those lines.... However she had been short of breath more than usual over the past 2 days... unable to obtain any further history due to the severity of condition per patient conversation with the ER physician PCP is Dr. Davison Past medical history significant for dental implants, hypertension, 5 vessel CABG bypass, [place] 3, hypercholesterolemia, hypertension, COPD oxygen dependent, pneumonia, sleep apnea, hiatal hernia, appendectomy, cholecystectomy, hypothyroidism, diabetes and currently smokes 1 pack a day. Patient developed worsening respiratory distress following arrival in the ER and was emergently intubated and placed on mechanical ventilation. She had a central line placed by ER physician at [facility]. Her repeat troponin came back greater than 40. Patient was transferred to [facility] ICU and cardiology consult was requested. When I evaluated patient following arrival to the ICU she was sedated with propofol, orally intubated on mechanical ventilation on a nicardipine drip for elevated blood pressure. She had been started on heparin for anticoagulation in view of acute AZ. 10/09: Sedated, arousable, orally intubated on mechanical ventilation. 10/10: called for crushing substernal chest pain. trops elevated. already on heparin drip with ASA. SL ntg not alleviating pain. iv morphine not relieving pain. added nitro drip, still not relieving pain. added iv lopressor for HR control, still no improvement. then patient converted to afib RVR with acute worsening of her chest pain. attempted cardioversion with adenosine 12mg without success. likely ischemic SVT, so avoided electrical cardioversion. gave additional lopressor and diltiazem with some improvement in HR, but still with RVR (initial HR 180s, now 140s). amio load and bolus. added iv magnesium. patient became hypotensive with amiodarone (and significant beta blockade given) . started on iv phenylephrine infusion to maintain coronary perfusion pressure. patient did eventually convert to NSR. discussed at length with Dr. Gonzalez: he does not want to cath patient overnight. wants to stabilize and re-evaluate in AM. chest pain somewhat improved on nitro drip, phenylephrine drip, amio drip, prn morphine, prn lopressor. 10/11: Pt improved this morning, taking PO, no CP. Amio and nitrate gtt DC'd. cath yesterday showing 3/5 grafts patent w/left main 99% stenosis w/heavy calcification. Cardiology pursuing medical management with Imdur, Ranexa, and diuresis due to high risk with intervention. ECHO 10/10 showing moderately dilated LV, normal wall thickness, w/EF 40-45%, mild-mod MV regurg, AV sclerosis and trace regurg, and trace TV regurg; normal atria and RV. Continue solumedrol, duonebs for COPD. Narrow spectrum abx for Haemophilus for PNA. CHUY baltazar, consult PT for OOB w/assist. If improving tomorrow w/o CP may go to floor. Objective Vital Signs Date Time Temp Pulse Resp B/P (MAP) Pulse Ox O2 Delivery O2 Flow Rate FiO2 10/11/17 08:22 94 Nasal Cannula 2.00 10/11/17 06:44 80 10/11/17 04:25 97.8 17 96/61 (73) 10/09/17 14:00 50 Intake and Output 10/11/17 10/11/17 10/11/17 07:59 15:59 23:59 Intake Total 550 ml Output Total 650 ml Balance -100 ml Result Diagram: 10/11/17 0345 10/10/17 0430 Imaging Last Impressions Chest X-Ray 10/10/17 0000 Signed Impressions: CONCLUSION: 1. Interval removal of the endotracheal and nasogastric tubes. 2. Chronic interstitial changes within the pulmonary parenchyma. 3. The appearance of the parenchyma similar to the prior. Abdomen X-Ray 10/08/17 0000 Signed Impressions: CONCLUSION: Tip of the NG tube inside the stomach. Chest X-Ray 10/08/17 0600 Signed Impressions: CONCLUSION: Stable chest. Cardiomegaly. Abdomen X-Ray 10/08/17 0000 Signed Impressions: CONCLUSION: Tip of the NG tube inside the stomach. Objective Remarks HEENT/ Neuro: awake, alert, in acute distress due to chest pain. No pallor, no icterus, tongue/ mucosa moist Neck: No JVD Chest/Pulm: nc o2. equal chest rise. tachypneic. CVS: tachycardic rate in the 180s initially, irregularly irregular rhythm. appears afib by tele. GI/abdomen: soft, nontender, bowel sounds sluggish Extremities: warm bilaterally, trace edema A/P Assessment and Plan Assessment: 72yF with acute NSTEMI with active chest pain and now ischemic SVT. critically ill requiring active management at bedside. 72-year-old female with: Acute hypoxic respiratory failure- resolving Non-ST elevation AZ Acute substernal chest pain Atrial Fibrillation with rapid ventricular response Acute coronary ischemia COPD Uncontrolled hypertension Hyperglycemia Plan: Neuro: morphine prn for chest pain. Cardiovascular: Aspirin. lopressor 5mg iv q5m for goal HR < 100. Dr. Gonzalez following. ECHO w/EF 40-45%. DC'd amio & nitro drips. Continue Cardene IV for HTN, Atorvastatin 10mg hs. Started Imdur 60mg bid, Ranexa 1000mg q12h, Lasix 40mg IV bid. Status post cardiac cath which revealed severe 3-vessel [place] coronary artery disease, three of five coronary bypass grafts are patent, elevated left-sided filling pressures. The first diagonal branch is fed through the [place] coronary system within a 99% occluded left main Anticoagulation with heparin stopped on 10/10 per cardiology. Pulmonary: wean o2 for goal spo2 > 94%. bronchodilators as needed. Solu- Medrol. GI/liver: Heart healthy diet. Renal/: IV hydration, strict intake output, monitor and replete electrolyte, follow BN creatinine. ID: Follow-up cultures. IV azithromycin/cefepime initiated on 10/07. Stopping azithro/ cefepime on 10/11 and switching to levaquin 500mg IV daily (stop on10/14) ; sputum cx 10/07 positive Haemophilus influenzae pansensitive except Bactrim; influenza, Legionella, and Strep pneumo negative; blood cx NTGD (3 days) Heme: Follow CBC and coags. Off anticoagulation with heparin. Endocrine: Watch for hypoglycemia, SSI for glycemic control. Prophylaxis: Pepcid/SCDs. start lovenox 40mg daily 10/11 Further recommendations per cardiology. Consult and transfer to hospitalist service for further medical management. Critical care will be signing off, please reconsult if needed Addendum: Patient seen and examined earlier. Discussed findings, assessment and plan with Dr. Saha. Agree with above note. Timothy Saha MD R1 October 11, 2017 09:09 Reymundo Santos MD October 11, 2017 14:31
[2017-10-11] MEDS: TIOTROPIUM BROMIDE 18 MCG INH INH SCH (09:24)
[2017-10-11] MEDS: ENOXAPARIN SODIUM 40 MG/0.4 ML SYRINGE SQ SCH (15:17)
[2017-10-11] MEDS: LEVOFLOXACIN 500 MG PREMIX INJ 100 ML IV SCH (15:17)
[2017-10-11] MEDS: ATORVASTATIN 10 MG TAB PO SCH (20:10)
[2017-10-12] VITALS (13 sets, daily range): BP systolic 98–118; BP diastolic 57–69; PULSE 66–88; RESP 17–21; TEMP 97.3–98.3; O2SAT 93–96
[2017-10-12] MEDS: INSULIN ASPART SUPPLEMENTAL SCALE SQ SCH ×6 (00:24→20:05)
[2017-10-12] MEDS: MORPHINE SULFATE ORAL SOLN 10 MG/0.5 ML SYRINGE OG-TUBE SCH ×3 (00:25→09:14)
[2017-10-12] MEDS: MORPHINE SULFATE 8 MG/ML INJ IV PUSH PRN (03:43)
[2017-10-12] MEDS: RESP: ALBUTEROL 2.5 MG/IPRATROPIUM 0.5 MG NEB (SCH) INH (03:58)
[2017-10-12] MEDS: CHLORHEXIDINE GLUCONATE 2 % 1 PACK (2 CLOTHS)(taper/protocol) TOPICAL SCH (04:00)
[2017-10-12] MEDS: CHLORHEXIDINE GLUCONATE 2 % 1 PACK (2 CLOTHS) TOP SCH (04:00)
[2017-10-12] MEDS: methylPREDNISolone SOD SUCC 40 MG/1 ML VIAL IV PUSH SCH ×2 (05:15→20:05)
[2017-10-12] MEDS: ISOSORBIDE MONONITRATE 60 MG CR TAB (IMDUR) PO SCH ×2 (05:16→20:03)
[2017-10-12] MEDS: ARTIFICIAL TEARS OPTH SOLN 15 ML BTL EACH EYE SCH ×3 (09:00→18:00)
[2017-10-12] MEDS: DOCUSATE SODIUM 50 MG/SENNA 8.6 MG TAB PO SCH ×2 (09:12→20:02)
[2017-10-12] MEDS: RANOLAZINE 500 MG EXTENDED RELEASE TAB PO SCH ×2 (09:12→20:02)
[2017-10-12] MEDS: FAMOTIDINE 20 MG/2 ML VIAL IV PUSH SCH ×2 (09:12→20:04)
[2017-10-12] MEDS: ASPIRIN 81 MG CHEW TAB CHEW SCH (09:12)
[2017-10-12] MEDS: SODIUM CHLORIDE 0.9% FLUSH 10 ML FLUSH IV FLUSH SCH ×2 (09:12→20:05)
--- NOTE | 2017-10-12 09:12 | HHI.PR ---
Subjective Remarks Pt denies any CP/SOB/N/V/abd pain Pt states that her breathing is much improved. Discussed w RN, labs for this morning are still pending. No concerns at this time. Objective Vitals Vital Signs Date Time Temp Pulse Resp B/P (MAP) Pulse Ox O2 Delivery O2 Flow Rate FiO2 10/12/17 07:00 93 Nasal Cannula 2.00 50 10/12/17 06:59 15 10/12/17 06:00 74 10/12/17 04:00 97.6 78 21 100/61 (74) 96 10/12/17 04:00 78 10/12/17 02:00 83 10/12/17 00:00 88 10/12/17 00:00 97.3 88 21 113/61 (78) 93 10/11/17 22:00 85 10/11/17 20:44 95 Nasal Cannula 2.00 10/11/17 20:00 72 10/11/17 20:00 97.8 72 16 105/60 (75) 95 10/11/17 19:00 93 Nasal Cannula 2.00 50 10/11/17 18:04 90 10/11/17 18:00 92 10/11/17 17:00 76 29 110/65 (80) 97 10/11/17 17:00 76 10/11/17 16:00 98.4 10/11/17 16:00 72 10/11/17 16:00 72 31 107/64 (78) 97 10/11/17 15:38 96 Nasal Cannula 2.00 10/11/17 15:00 74 21 98/63 (75) 95 10/11/17 15:00 74 10/11/17 14:01 84 24 107/62 (77) 95 10/11/17 14:01 84 10/11/17 14:00 85 27 97 10/11/17 14:00 85 10/11/17 13:01 81 10/11/17 13:01 81 24 129/68 (88) 94 10/11/17 12:01 82 10/11/17 12:01 82 29 89/57 (68) 95 10/11/17 12:00 75 10/11/17 12:00 98.0 75 27 94 10/11/17 11:23 84 22 90/58 (69) 94 10/11/17 11:23 84 10/11/17 11:01 82 23 76/58 (64) 94 10/11/17 11:01 82 10/11/17 10:58 88 10/11/17 10:58 88 26 93/55 (68) 92 10/11/17 10:55 88 10/11/17 10:55 88 25 85/57 (66) 92 10/11/17 10:52 83 10/11/17 10:52 83 26 78/50 (59) 94 10/11/17 10:25 89 10/11/17 10:25 89 20 80/63 (69) 92 10/11/17 10:15 88 10/11/17 10:15 88 21 73/47 (56) 92 10/11/17 10:13 86 19 78/50 (59) 92 10/11/17 10:13 86 10/11/17 10:08 85 10/11/17 10:08 85 20 78/51 (60) 92 10/11/17 10:00 94 26 92 10/11/17 10:00 94 10/11/17 09:01 82 10/11/17 09:01 82 43 100/73 (82) 93 I/O 10/11/17 10/11/17 10/11/17 10/12/17 10/12/17 10/12/17 07:00 15:00 23:00 07:00 15:00 23:00 Intake Total 550 ml 100 ml 1200 ml 500 ml Output Total 650 ml 900 ml 1000 ml Balance -100 ml 100 ml 300 ml -500 ml Intake Oral 300 ml 1200 ml 500 ml IV Total 250 ml 100 ml Output Urine Total 650 ml 900 ml 1000 ml Stool Total 0 ml 0 ml # Voids 3 # Bowel Movements 0 Result Diagram: 10/11/17 0345 10/10/17 0430 Imaging Last Impressions Chest X-Ray 10/10/17 0000 Signed Impressions: CONCLUSION: 1. Interval removal of the endotracheal and nasogastric tubes. 2. Chronic interstitial changes within the pulmonary parenchyma. 3. The appearance of the parenchyma similar to the prior. Abdomen X-Ray 10/08/17 0000 Signed Impressions: CONCLUSION: Tip of the NG tube inside the stomach. Objective Remarks HEENT/ Neuro: awake, alert, sitting up in bed and appears comfortable. Neck: No JVD Chest/Pulm: nc o2. no wheezing, decreased breath sounds. CVS: RRR w no obvious murmurs. GI/abdomen: soft, nontender,no guarding Extremities: warm bilaterally, trace edema, she is able to sit up on the bed on her own for me to examine her A/P Assessment and Plan Assessment: 72yF with: acute NSTEMI: ,morphine/nitroglycerin prn. s/p LHC which revealed 3/5 grafts patent, left main 99% stenosis and heavily calcified, high risk for intervention being medically managed. continue Imdur and Ranexa; will switch to po lasix. Continue medical management per cardiology and cardiology team has signed off. on ASA and lipitor. prm lopressor as needed. s/p amio and nitro gtt. Acute hypoxic respiratory failure/copd exacerbation- resolving. continue to wean solu-medrol. will decrease to 40mg IV q12hrs instead of q8hrs. on spiriva. continue breathing treatments. Encourage IS q1hrs while awake Ischemic SVT/ Atrial Fibrillation with rapid ventricular response- now on sinus rhythm, 84 on TELE. s/p conversion w amiodarone. Uncontrolled HTN: s/p nicardipine gtt. now controlled. on imdur. ID: Follow-up cultures. IV azithromycin/cefepime initiated on 10/07. d/c azithro / cefepime on 10/11 and now on levaquin 500mg IV daily (stop on10/14); sputum cx positive Haemophilus influenzae pansensitive except Bactrim; influenza, Legionella, and Strep pneumo negative; blood cx NTGD (3 days) DVT proph: lovenox Discharge Planning monitor patient throughout the day and if continues to do well, transfer to med/ surg floor later today. continue to wean solu-medrol anticipate d/c in 1-2 days Per last PT note 10/11/17, recommends rehab. CM to assist w d/c planning. Will need walk test, will order for tomorrow. Bela Cortes MD Oct 12, 2017 09:12
[2017-10-12] MEDS: TIOTROPIUM BROMIDE 18 MCG INH INH SCH (09:13)
[2017-10-12] MEDS: FUROSEMIDE 40 MG TAB PO SCH ×2 (09:24→18:06)
[2017-10-12 09:31] LABS: HEMOGLOBIN 13.4 GM/DL (11.6-15.3); MEAN CELL VOLUME 83.5 FL (80.0-100.0); MEAN CORPUSCULAR HGB CONC 33.5 % (32.0-36.0); MEAN PLATELET VOLUME 7.9 FL (7.0-11.0); PLATELET COUNT 220 TH/MM3 (150-450); RED BLOOD COUNT 4.79 MIL/MM3 (4.00-5.30); RED CELL DISTRIBUTION WIDTH 14.5 % (11.6-17.2); WHITE BLOOD COUNT 12.9 TH/MM3 (4.0-11.0)
[2017-10-12 10:09] LABS: CREATININE 0.76 MG/DL (0.50-1.00)
[2017-10-12] MEDS: MORPHINE SULFATE 60 MG CONTROLLED RELEASE TAB PO SCH ×2 (12:58→20:03)
[2017-10-12] MEDS: ENOXAPARIN SODIUM 40 MG/0.4 ML SYRINGE SQ SCH (15:22)
[2017-10-12] MEDS: LEVOFLOXACIN 500 MG PREMIX INJ 100 ML IV SCH (15:22)
[2017-10-12] MEDS: ATORVASTATIN 10 MG TAB PO SCH (20:03)
[2017-10-13] VITALS (13 sets, daily range): BP systolic 98–120; BP diastolic 57–83; PULSE 66–88; RESP 15–41; TEMP 98.1–98.7; O2SAT 92–99
[2017-10-13] MEDS: INSULIN ASPART SUPPLEMENTAL SCALE SQ SCH ×6 (00:38→22:07)
[2017-10-13] MEDS: CHLORHEXIDINE GLUCONATE 2 % 1 PACK (2 CLOTHS) TOP SCH (04:00)
[2017-10-13 05:21] LABS: AUTOMATED NEUTROPHIL # 12.7 TH/MM3 (1.8-7.7); BASOPHIL % 0.1 % (0.0-2.0); HEMOGLOBIN 13.8 GM/DL (11.6-15.3); LYMPH % 5.3 % (9.0-44.0); LYMPHOCYTE # 0.7 TH/MM3 (1.0-4.8); MEAN CORPUSCULAR HGB CONC 33.7 % (32.0-36.0); MEAN PLATELET VOLUME 7.8 FL (7.0-11.0); MONO % 4.5 % (0.0-8.0); MONOCYTE # 0.6 TH/MM3 (0-0.9); NEUT % 90.1 % (16.0-70.0); PLATELET COUNT 241 TH/MM3 (150-450); RED BLOOD COUNT 4.95 MIL/MM3 (4.00-5.30); RED CELL DISTRIBUTION WIDTH 14.5 % (11.6-17.2); WHITE BLOOD COUNT 14.1 TH/MM3 (4.0-11.0)
[2017-10-13 05:52] LABS: BICARBONATE 32.9 MEQ/L (21.0-32.0); CALCIUM 8.4 MG/DL (8.5-10.1); CREATININE 0.86 MG/DL (0.50-1.00); MAGNESIUM 2.5 MG/DL (1.5-2.5)
[2017-10-13] MEDS: ISOSORBIDE MONONITRATE 60 MG CR TAB (IMDUR) PO SCH ×2 (06:31→20:34)
[2017-10-13] MEDS: MORPHINE SULFATE 60 MG CONTROLLED RELEASE TAB PO SCH ×3 (06:31→20:33)
[2017-10-13] MEDS: ARTIFICIAL TEARS OPTH SOLN 15 ML BTL EACH EYE SCH ×3 (09:00→16:59)
[2017-10-13] MEDS: SODIUM CHLORIDE 0.9% FLUSH 10 ML FLUSH IV FLUSH SCH ×2 (09:00→20:35)
[2017-10-13] MEDS: RANOLAZINE 500 MG EXTENDED RELEASE TAB PO SCH ×2 (10:10→20:35)
[2017-10-13] MEDS: FUROSEMIDE 40 MG TAB PO SCH ×2 (10:10→16:58)
[2017-10-13] MEDS: DOCUSATE SODIUM 50 MG/SENNA 8.6 MG TAB PO SCH ×2 (10:10→20:35)
[2017-10-13] MEDS: ASPIRIN 81 MG CHEW TAB CHEW SCH (10:10)
[2017-10-13] MEDS: FAMOTIDINE 20 MG/2 ML VIAL IV PUSH SCH ×2 (10:11→20:34)
[2017-10-13] MEDS: methylPREDNISolone SOD SUCC 40 MG/1 ML VIAL IV PUSH SCH ×2 (10:11→20:34)
[2017-10-13] MEDS: TIOTROPIUM BROMIDE 18 MCG INH INH SCH (11:22)
[2017-10-13] MEDS ORDERED: POTASSIUM CHLORIDE 20 MEQ CONTROLLED RELEASE TAB PO ONE (12:45)
--- NOTE | 2017-10-13 16:02 | HHI.PR ---
Subjective Remarks Patient is sitting up on the side of the bed comfortably, she is eating breakfast with a friend at her bedside. She has no exertional dyspnea. She denies chest pain Objective Vitals Vital Signs Date Time Temp Pulse Resp B/P (MAP) Pulse Ox O2 Delivery O2 Flow Rate FiO2 10/13/17 13:54 16 10/13/17 12:33 3.00 10/13/17 12:32 96 Nasal Cannula 3.00 10/13/17 12:00 98.1 72 22 112/66 (81) 96 10/13/17 12:00 72 10/13/17 10:00 75 27 98/57 (71) 93 10/13/17 09:00 72 22 113/83 (93) 92 10/13/17 08:00 98.7 68 23 113/68 (83) 97 10/13/17 08:00 Nasal Cannula 2.00 10/13/17 07:00 66 27 106/61 (76) 96 10/13/17 06:00 73 10/13/17 04:00 85 10/13/17 04:00 98.6 85 41 113/63 (80) 95 10/13/17 02:00 78 10/13/17 00:00 74 10/13/17 00:00 98.3 74 18 105/62 (76) 95 10/12/17 22:00 73 10/12/17 20:00 69 10/12/17 20:00 98.3 69 18 118/69 (85) 93 10/12/17 19:00 94 Nasal Cannula 2.00 50 10/12/17 18:00 66 10/12/17 16:00 98.2 70 19 98/57 (71) 95 10/12/17 16:00 70 I/O 10/12/17 10/12/17 10/12/17 10/13/17 10/13/17 10/13/17 06:59 14:59 22:59 06:59 14:59 22:59 Intake Total 500 ml 950 ml 750 ml Output Total 1000 ml 1200 ml 1800 ml Balance -500 ml -250 ml -1050 ml Intake Oral 500 ml 750 ml 750 ml IV Total 200 ml Output Urine Total 1000 ml 1200 ml 1800 ml Stool Total 0 ml # Voids 3 # Bowel Movements 0 0 0 Result Diagram: 10/13/17 0420 10/13/17 0420 Objective Remarks GENERAL: Well-nourished, well-developed patient. SKIN: Warm and dry. HEAD: Normocephalic. EYES: No scleral icterus. No injection or drainage. NECK: Supple, trachea midline. No JVD or lymphadenopathy. CARDIOVASCULAR: Regular rate and rhythm without murmurs, gallops, or rubs. RESPIRATORY: Breath sounds equal bilaterally, mild atelectasis in bases. No accessory muscle use. GASTROINTESTINAL: Abdomen soft, non-tender, nondistended. EXTREMITIES: No cyanosis, or edema. NEUROLOGICAL: Awake, alert, and oriented x 3. Non-focal. A/P Problem List: (1) NSTEMI (non-ST elevated myocardial infarction) ICD Code: I21.4 - Non-ST elevation (NSTEMI) myocardial infarction (2) COPD exacerbation ICD Code: J44.1 - Chronic obstructive pulmonary disease with (acute) exacerbation (3) DM (diabetes mellitus) ICD Code: E11.9 - Type 2 diabetes mellitus without complications Status: Chronic Assessment and Plan 72-year-old female who presented with respiratory distress and chest pain Acute NSTEMI Patient was distended on arrival but had another episode of chest pain with another increase in her troponins. s/p LHC which revealed only 3 out of 5 grafts patent Left main artery shows 99% stenosis, heavily calcified She is too high risk for intervention, medical management recommended Continue Imdur and Ranexa Continue ASA, Lipitor, Lopressor Nitroglycerin as needed We had a long discussion about eliminating cholesterol in her diet Cardiology has signed off COPD exacerbation Weaning Solu-Medrol Continue Spiriva and DuoNeb's Encourage incentive spirometry Wean off of oxygen Lung amaya are clear and patient is stable for transfer out of the ICU Atrial fibrillation with RVR Also reported as ischemic SVT Converted with amiodarone Patient is currently sinus rhythm Follow on telemetry Infectious disease Sputum cultures from 527 show Haemophilus influenza which is sensitive to most antibiotics except Bactrim Continue Levaquin IV daily, recommended stop date is 10/14 DVT prophylaxis Lovenox Discharge Planning Patient is stable for transfer to [facility] Anticipate discharge in 1-2 days Walk test prior to discharge PT suggested rehab, reevaluation recommended given patient's improved breathing Bowen Morales MD Oct 13, 2017 16:02
[2017-10-13] MEDS: ENOXAPARIN SODIUM 40 MG/0.4 ML SYRINGE SQ SCH (16:59)
[2017-10-13] MEDS: LEVOFLOXACIN 500 MG PREMIX INJ 100 ML IV SCH (16:59)
[2017-10-13] MEDS: ATORVASTATIN 10 MG TAB PO SCH (20:33)
[2017-10-13] MEDS: POTASSIUM CHLOR 20 MEQ PREMIX 100 ML IV PRN (22:19)
[2017-10-14] VITALS (8 sets, daily range): BP systolic 93–113; BP diastolic 54–93; PULSE 61–91; RESP 0–26; TEMP 97.1–98.6; O2SAT 93–97
[2017-10-14] MEDS: CHLORHEXIDINE GLUCONATE 2 % 1 PACK (2 CLOTHS) TOP SCH ×2 (04:00→21:46)
[2017-10-14 04:47] LABS: BASOPHIL % 0.1 % (0.0-2.0); HEMATOCRIT 39.4 % (35.0-46.0); HEMOGLOBIN 13.3 GM/DL (11.6-15.3); LYMPH % 5.1 % (9.0-44.0); LYMPHOCYTE # 0.7 TH/MM3 (1.0-4.8); MEAN CELL VOLUME 83.6 FL (80.0-100.0); MEAN CORPUSCULAR HEMOGLOBIN 28.2 PG (27.0-34.0); MEAN CORPUSCULAR HGB CONC 33.8 % (32.0-36.0); MEAN PLATELET VOLUME 7.4 FL (7.0-11.0); MONO % 3.8 % (0.0-8.0); MONOCYTE # 0.5 TH/MM3 (0-0.9); PLATELET COUNT 216 TH/MM3 (150-450); RED BLOOD COUNT 4.71 MIL/MM3 (4.00-5.30); RED CELL DISTRIBUTION WIDTH 14.5 % (11.6-17.2); WHITE BLOOD COUNT 14.2 TH/MM3 (4.0-11.0)
[2017-10-14 05:22] LABS: BICARBONATE 31.6 MEQ/L (21.0-32.0); CALCIUM 8.2 MG/DL (8.5-10.1); CREATININE 0.88 MG/DL (0.50-1.00)
[2017-10-14 05:30] LABS: FREE T4 0.9 NG/DL (0.76-1.46)
[2017-10-14] MEDS: ISOSORBIDE MONONITRATE 60 MG CR TAB (IMDUR) PO SCH ×2 (06:19→21:29)
[2017-10-14] MEDS: MORPHINE SULFATE 60 MG CONTROLLED RELEASE TAB PO SCH ×3 (06:20→21:25)
[2017-10-14] MEDS: INSULIN ASPART SUPPLEMENTAL SCALE SQ SCH ×4 (08:00→21:00)
[2017-10-14] MEDS: methylPREDNISolone SOD SUCC 40 MG/1 ML VIAL IV PUSH SCH ×2 (08:43→21:25)
[2017-10-14] MEDS: DOCUSATE SODIUM 50 MG/SENNA 8.6 MG TAB PO SCH ×2 (08:43→21:00)
[2017-10-14] MEDS: ASPIRIN 81 MG CHEW TAB CHEW SCH (08:43)
[2017-10-14] MEDS: RANOLAZINE 500 MG EXTENDED RELEASE TAB PO SCH ×2 (08:44→21:27)
[2017-10-14] MEDS: FUROSEMIDE 40 MG TAB PO SCH ×2 (08:44→17:43)
[2017-10-14] MEDS: TIOTROPIUM BROMIDE 18 MCG INH INH SCH (08:44)
[2017-10-14] MEDS: FAMOTIDINE 20 MG/2 ML VIAL IV PUSH SCH ×2 (08:45→21:00)
[2017-10-14] MEDS: SODIUM CHLORIDE 0.9% FLUSH 10 ML FLUSH IV FLUSH SCH ×2 (08:45→21:00)
[2017-10-14] MEDS: ARTIFICIAL TEARS OPTH SOLN 15 ML BTL EACH EYE SCH ×3 (09:00→17:44)
[2017-10-14] MEDS: RESP: LEVALBUTEROL HYDROCHLORIDE 1.25 MG/3 ML NEB (PRN) NEB (09:33)
--- NOTE | 2017-10-14 10:59 | HHI.PR ---
Subjective Remarks 10/08: 72-year-old female who was rushed in by private vehicle, family member brought her in complaining of severe shortness of breath, not improved by her own home nebulizers, or her home oxygen. Per family member this started about 30-45 minutes prior to arrival and had a sudden onset of severity. According to family she was not complaining of any chest pain or anything along those lines.... However she had been short of breath more than usual over the past 2 days... unable to obtain any further history due to the severity of condition per patient conversation with the ER physician PCP is Dr. Davison Past medical history significant for dental implants, hypertension, 5 vessel CABG bypass, OK 3, hypercholesterolemia, hypertension, COPD oxygen dependent, pneumonia, sleep apnea, hiatal hernia, appendectomy, cholecystectomy, hypothyroidism, diabetes and currently smokes 1 pack a day. Patient developed worsening respiratory distress following arrival in the ER and was emergently intubated and placed on mechanical ventilation. She had a central line placed by ER physician at [place]. Her repeat troponin came back greater than 40. Patient was transferred to [facility] ICU and cardiology consult was requested. When I evaluated patient following arrival to the ICU she was sedated with propofol, orally intubated on mechanical ventilation on a nicardipine drip for elevated blood pressure. She had been started on heparin for anticoagulation in view of acute OK. 10/09: Sedated, arousable, orally intubated on mechanical ventilation. 10/10: called for crushing substernal chest pain. trops elevated. already on heparin drip with ASA. SL ntg not alleviating pain. iv morphine not relieving pain. added nitro drip, still not relieving pain. added iv lopressor for HR control, still no improvement. then patient converted to afib RVR with acute worsening of her chest pain. attempted cardioversion with adenosine 12mg without success. likely ischemic SVT, so avoided electrical cardioversion. gave additional lopressor and diltiazem with some improvement in HR, but still with RVR (initial HR 180s, now 140s). amio load and bolus. added iv magnesium. patient became hypotensive with amiodarone (and significant beta blockade given) . started on iv phenylephrine infusion to maintain coronary perfusion pressure. patient did eventually convert to NSR. discussed at length with Dr. Gonzalez: he does not want to cath patient overnight. wants to stabilize and re-evaluate in AM. chest pain somewhat improved on nitro drip, phenylephrine drip, amio drip, prn morphine, prn lopressor. 10/11: Pt improved this morning, taking PO, no CP. Amio and nitrate gtt DC'kamini. cath yesterday showing 3/5 grafts patent w/left main 99% stenosis w/heavy calcification. Cardiology pursuing medical management with Imdur, Ranexa, and diuresis due to high risk with intervention. ECHO 10/10 showing moderately dilated LV, normal wall thickness, w/EF 40-45%, mild-mod MV regurg, AV sclerosis and trace regurg, and trace TV regurg; normal atria and RV. Continue solumedrol, duonebs for COPD. Narrow spectrum abx for Haemophilus for PNA. CHUY baltazar, consult PT for OOB w/assist. If improving tomorrow w/o CP may go to floor. 6-1 TRANSFERRED TO OUR SERVICE Pt denies any CP/SOB/N/V/abd pain Pt states that her breathing is much improved. Discussed w RN, labs for this morning are still pending. No concerns at this time. 6-2 Patient is sitting up on the side of the bed comfortably, she is eating breakfast with a friend at her bedside. She has no exertional dyspnea. She denies chest pain 6-3 SEEN IN HER ROOM DW RN AND PT TRANSFER OUT OF ICU AM LABS STATES NOT A DIABETIC BUT SUGARS REMAIN ELEVATED CHECK HGBA1C PT AND OT MUCINEX IS STEROIDS Objective Vitals Vital Signs Date Time Temp Pulse Resp B/P (MAP) Pulse Ox O2 Delivery O2 Flow Rate FiO2 10/14/17 09:25 97 Nasal Cannula 3.00 10/14/17 08:00 61 10/14/17 08:00 98.4 61 26 93/54 (67) 97 10/14/17 07:58 97 Nasal Cannula 3.00 10/14/17 07:22 17 10/14/17 04:00 97.1 80 0 112/62 (79) 95 10/14/17 04:00 80 10/14/17 00:00 98.6 72 13 113/65 (81) 94 10/14/17 00:00 72 10/13/17 20:00 98.4 88 15 120/69 (86) 92 6/2/18 20:00 88 10/13/17 19:25 99 Nasal Cannula 3.00 10/13/17 19:00 96 Nasal Cannula 3.00 10/13/17 16:00 84 10/13/17 16:00 98.5 84 29 108/74 (85) 99 10/13/17 12:33 3.00 10/13/17 12:32 96 Nasal Cannula 3.00 10/13/17 12:00 98.1 72 22 112/66 (81) 96 10/13/17 12:00 72 I/O 10/13/17 10/13/17 10/13/17 10/14/17 10/14/17 10/14/17 07:00 15:00 23:00 07:00 15:00 23:00 Intake Total 750 ml 820 ml 550 ml Output Total 1800 ml 1500 ml 1101 ml Balance -1050 ml -680 ml -551 ml Intake Oral 750 ml 720 ml 550 ml IV Total 100 ml Output Urine Total 1800 ml 1500 ml 1100 ml Stool Total 1 ml # Bowel Movements 0 0 1 Result Diagram: 10/14/17 0430 10/14/17 0430 Other Results Laboratory Tests Test 10/12/17 08:56 10/13/17 04:20 10/14/17 04:30 White Blood Count 12.9 TH/MM3 14.1 TH/MM3 14.2 TH/MM3 Red Blood Count 4.79 MIL/MM3 4.95 MIL/MM3 4.71 MIL/MM3 Hemoglobin 13.4 GM/DL 13.8 GM/DL 13.3 GM/DL Hematocrit 40.0 % 41.0 % 39.4 % Mean Corpuscular Volume 83.5 FL 83.0 FL 83.6 FL Mean Corpuscular Hemoglobin 28.0 PG 28.0 PG 28.2 PG Mean Corpuscular Hemoglobin Concent 33.5 % 33.7 % 33.8 % Red Cell Distribution Width 14.5 % 14.5 % 14.5 % Platelet Count 220 TH/MM3 241 TH/MM3 216 TH/MM3 Mean Platelet Volume 7.9 FL 7.8 FL 7.4 FL Blood Urea Nitrogen 31 MG/DL 33 MG/DL 26 MG/DL Creatinine 0.76 MG/DL 0.86 MG/DL 0.88 MG/DL Random Glucose 169 MG/DL 146 MG/DL 257 MG/DL Calcium Level 9.0 MG/DL 8.4 MG/DL 8.2 MG/DL Sodium Level 137 MEQ/L 140 MEQ/L 138 MEQ/L Potassium Level 3.5 MEQ/L 3.3 MEQ/L 4.3 MEQ/L Chloride Level 98 MEQ/L 99 MEQ/L 99 MEQ/L Carbon Dioxide Level 30.0 MEQ/L 32.9 MEQ/L 31.6 MEQ/L Anion Gap 9 MEQ/L 8 MEQ/L 7 MEQ/L Estimat Glomerular Filtration Rate 75 ML/MIN 65 ML/MIN 63 ML/MIN Neutrophils (%) (Auto) 90.1 % 91.0 % Lymphocytes (%) (Auto) 5.3 % 5.1 % Monocytes (%) (Auto) 4.5 % 3.8 % Eosinophils (%) (Auto) 0.0 % 0.0 % Basophils (%) (Auto) 0.1 % 0.1 % Neutrophils # (Auto) 12.7 TH/MM3 13.0 TH/MM3 Lymphocytes # (Auto) 0.7 TH/MM3 0.7 TH/MM3 Monocytes # (Auto) 0.6 TH/MM3 0.5 TH/MM3 Eosinophils # (Auto) 0.0 TH/MM3 0.0 TH/MM3 Basophils # (Auto) 0.0 TH/MM3 0.0 TH/MM3 CBC Comment DIFF FINAL DIFF FINAL Differential Comment Magnesium Level 2.5 MG/DL Free Thyroxine 0.90 NG/DL Thyroid Stimulating Hormone 3rd Gen 1.010 uIU/ML Imaging Last Impressions Chest X-Ray 10/10/17 Signed Impressions: CONCLUSION: 1. Interval removal of the endotracheal and nasogastric tubes. 2. Chronic interstitial changes within the pulmonary parenchyma. 3. The appearance of the parenchyma similar to the prior. Abdomen X-Ray 10/08/17 Signed Impressions: CONCLUSION: Tip of the NG tube inside the stomach. Objective Remarks GENERAL: Awake alert and oriented 3 talkative and cooperative appears to be in no acute distress at this time SKIN: Warm and dry. HEAD: Atraumatic. Normocephalic. EYES: Pupils equal and round. No scleral icterus. No injection or drainage. Extraocular muscles intact ENT: No nasal bleeding or discharge. Mucous membranes pink and moist. Tongue is midline NECK: Trachea midline. No JVD. Supple S1-S2 no S3 or S4 CARDIOVASCULAR: Regular rate and rhythm. RESPIRATORY: No accessory muscle use. Coarse breath sounds bilaterally breath sounds equal bilaterally. GASTROINTESTINAL: Abdomen soft, non-tender, nondistended. Hepatic and splenic margins not palpable. MUSCULOSKELETAL: Extremities without clubbing, cyanosis, or edema. No obvious deformities. NEUROLOGICAL: Awake and alert. No obvious cranial nerve deficits. Motor grossly within normal limits. 4 out of 5 muscle strength in the arms and legs. Normal speech. PSYCHIATRIC: Appropriate mood and affect; insight and judgment normal. Procedures 10/10/2017 INDICATION: Non-ST elevation myocardial infarction. PROCEDURES PERFORMED: 1. Fluoroscopy with interpretation. 2. Coronary angiography. 3. Left heart catheterization. 4. Coronary artery bypass graft angiography. METHOD: Risks, benefits and alternatives discussed with the patient. The patient understood and consented to the procedure. The patient brought into the catheterization lab, and placed on the catheterization table. The right groin prepped and draped in a sterile fashion. The right groin was anesthetized with 2% lidocaine. The right common femoral artery was cannulated. A 5-Wolof 11 cm sheath was placed without difficulty. CORONARY ANGIOGRAPHY: 1. Left main coronary artery appears to be 99% stenosed with heavy calcium present. 2. Proximal left anterior descending coronary artery is subtotally occluded, but does give rise to a moderate-sized first diagonal branch which is fed antegrade from the yocha dehe coronary. The left anterior descending coronary is then occluded just beyond the takeoff of its diagonal branch. 3. Left circumflex is subtotally occluded. It has an occluded first obtuse marginal branch and the remainder of the circumflex is a small caliber size. 4. Right coronary artery is occluded in the proximal to mid segment and collateralized from [id number] collaterals. CORONARY BYPASS GRAFT ANGIOGRAPHY: 1. Left internal mammary to the left anterior descending coronary artery is widely patent. It does backfill to the septal perforators. Moderate diffuse disease throughout. 2. Saphenous vein graft to the diagonal branch has 2 tandem 50 percent stenoses present. Diagonal branch is small in caliber size. This is diagonal branch #2. 3. Saphenous vein graft to the obtuse marginal branch is widely patent. There are mild luminal irregularities. 4. The saphenous vein graft to the right coronary artery is occluded. 5. The jump graft from the posterior descending to the posterolateral branch is occluded. LEFT HEART CATHETERIZATION: Intraventricular hemodynamics measured 114/23 mmHg with a left ventricular end-diastolic pressure of 33 mmHg. CONCLUSIONS: 1. Severe 3-vessel yocha dehe coronary artery disease. 2. Three of five coronary bypass grafts are patent. 3. Elevated left-sided filling pressures. PLAN: Saphenous vein graft to the right coronary and jump graft are occluded, but well collateralized and unlikely to be the culprit. The other grafts appear patent. The diagonal graft does have moderate disease, but would not be causing resting symptoms. The first diagonal branch is fed through the yocha dehe coronary system within a 99% occluded left main which could be a very high risk intervention. At this point, I think it would be best to attempt aggressive medical management. We will initiate long-acting nitrate in addition or ranolazine. Her left ventricular end-diastolic pressure is also elevated, so we will increase her Lasix to twice daily. --- Status post vent and intubation Medications and IVs Current Medications Sodium Chloride (NS Flush) 2 ml UNSCH PRN IVF FLUSH AFTER USING IV ACCESS; Start 10/07/17 at 19:15; Stop 10/08/17 at 09:42; Status DC Methylprednisolone Sodium Succinate (SoluMEDROL INJ) 125 mg ONCE ONCE IV PUSH Last administered on 10/07/17at 21:01; Start 10/07/17 at 19:15; Stop 10/07/17 at 19:16; Status DC Albuterol Sulfate (Albuterol Neb) 2.5 mg Q15M INH Last administered on at 19:45; Start 10/07/17 at 19:15; Stop 10/07/17 at 19:46; Status DC Magnesium Sulfate/ Dextrose 100 ml @ 100 mls/hr ONCE ONCE IV Last administered on 10/07/17at 21:02; Start 10/07/17 at 19:15; Stop 10/07/17 at 20:14 ; Status DC Terbutaline Sulfate (Brethine Inj) 0.25 mg ONCE ONCE SQ Last administered on at 21:01; Start 10/07/17 at 19:15; Stop 10/07/17 at 19:16; Status DC Etomidate (Amidate Inj) 20 mg ONCE ONCE IV PUSH Last administered on at 19:30; Start 10/07/17 at 19:15; Stop 10/07/17 at 19:16; Status DC Succinylcholine Chloride (Quelicin Inj) 100 mg ONCE ONCE IV PUSH Last administered on 10/07/17 19:30; Start 10/07/17 at 19:15; Stop 10/07/17 at 19:16 ; Status DC Propofol 100 ml @ 2.13 mls/hr TITRATE PRN IV SEDATION Last administered on 10:23; Start 10/07/17 at 19:15 Aztreonam 2000 mg/ Sodium Chloride 100 ml @ 200 mls/hr ONCE STAT IV Last administered on 10/07/17at 22:11; Start 10/07/17 at 19:37; Stop 10/07/17 at 20:06 ; Status DC Levofloxacin/ Dextrose 150 ml @ 100 mls/hr ONCE STAT IV Last administered on 10/07/17 22:33; Start 10/07/17 at 19:37; Stop 10/07/17 at 21:06; Status DC Albuterol Sulfate (Albuterol Neb) 2.5 mg Q15M INH Last administered on at 21:32; Start 10/07/17 at 21:00; Stop 10/07/17 at 21:31; Status DC Miscellaneous Information ([facility] Nursing Information) Patient in critical care unit? Ass... Q361D .XX ; Start 10/07/17 at 23:15 Chlorhexidine Gluconate (Chlorhexidine 2% Cloth) 3 pack DAILY@04 TOPICAL Last administered on 10/12/17at 04:00; Start 10/08/17 at 04:00; Stop 10/12/17 at 04:01; Status DC Chlorhexidine Gluconate (Chlorhexidine 2% Cloth) 3 pack UNSCH PRN TOPICAL HYGIENIC CARE; Start 10/07/17 at 23:15; Stop 10/12/17 at 23:00; Status DC Aspirin (Aspirin Chew) 81 mg DAILY CHEW Last administered on 10/14/17 08:43; Start 10/08/17 at 09:00 Atorvastatin Calcium (Lipitor) 10 mg HS PO Last administered on 10/13/17 20:33 ; Start 10/08/17 at 21:00 Tiotropium [place] (Spiriva Inh) 2 mcg DAILY INH Last administered on 10/14/17 08:44; Start 10/08/17 at 09:00 Sodium Chloride 1,000 ml @ 84 mls/hr [id number] IV Last administered on at 22:57; Start 10/08/17 at 00:47; Stop 10/10/17 at 11:01; Status DC Sodium Chloride (NS Flush) 2 ml UNSCH PRN IV FLUSH FLUSH AFTER USING IV ACCESS ; Start 10/08/17 at 01:00 Sodium Chloride (NS Flush) 2 ml BID IV FLUSH Last administered on 10/14/17at 08: 45; Start 10/08/17 at 09:00 Acetaminophen (Tylenol) 650 mg Q6H PRN PO PAIN 1-5 AND/OR FEVER >101F; Start at 01:00 Hydromorphone HCl (Dilaudid Pf Inj) 1 mg Q4H PRN IV PUSH PAIN SCALE 6 TO 10; Start 10/08/17 at 01:00; Stop 10/12/17 at 09:53; Status DC Famotidine (Pepcid Inj) 20 mg Q12HR IV PUSH Last administered on 10/14/17at 08:45 ; Start 10/08/17 at 09:00 Lorazepam (Ativan Inj) 1 mg Q1H PRN IV PUSH Agitation/Sedation Last administered on 10/10/17at 06:23; Start 10/08/17 at 01:00 Artificial Tears (Tears Naturale Opth Soln) 1 drop TID EACH EYE Last administered on 10/09/17at 18:00; Start 10/08/17 at 09:00 Ondansetron HCl (Zofran Inj) 4 mg Q6H PRN IV PUSH NAUSEA OR VOMITING; Start at 01:00 Albuterol/ Ipratropium (Duoneb Neb) 1 ampule Q4HR NEB INH Last administered on 10/11/17at 23:57; Start 10/08/17 at 04:00; Stop 10/12/17 at 03:59; Status DC Albuterol/ Ipratropium (Duoneb Neb) 1 ampule Q2HR NEB PRN INH WHEEZING; Start 10/08/17 at 01:00; Stop 10/10/17 at 05:07; Status DC Heparin Sodium (Porcine) (Heparin Inj) 5,000 units Q8H SQ Last administered on 10/08/17at 02:22; Start 10/08/17 at 01:00; Stop 10/08/17 at 09:32; Status DC Miscellaneous Information ([facility] Nursing Information) 1 Q361D XX ; Start at 01:00 Chlorhexidine Gluconate (Chlorhexidine 2% Cloth) Taper DAILY@04 TOP Last administered on 10/14/17at 04:00; Start 10/08/17 at 04:00; Stop 10/04/18 at 03:59 Chlorhexidine Gluconate (Chlorhexidine 2% Cloth) 3 pack UNSCH PRN TOP HYGIENIC CARE; Start 10/08/17 at 01:00 Senna/Docusate Sodium (Stephanie-Colace) 1 tab BID PO Last administered on 10/14/17at 08:43; Start 10/08/17 at 09:00 Magnesium Hydroxide (Milk Of Magnesia Liq) 30 ml Q12H PRN PO Mild constipation ; Start 10/08/17 at 01:00 Sennosides (Senokot) 17.2 mg Q12H PRN PO Moderate constipation Last administered on 10/13/17at 10:09; Start 10/08/17 at 01:00 Bisacodyl (Dulcolax Supp) 10 mg DAILY PRN RECTAL SEVERE CONSITIPATION / IF NPO ; Start 10/08/17 at 01:00 Lactulose (Lactulose Liq) 30 ml DAILY PRN PO SEVERE CONSITIPATION/ IF PO; Start 10/08/17 at 01:00 Cefepime HCl 2000 mg/Sodium Chloride 100 ml @ 200 mls/hr Q8H IV Last administered on 10/08/17at 10:09; Start 10/08/17 at 01:00; Stop 10/08/17 at 11:20 ; Status DC Azithromycin 500 mg/Sodium Chloride 250 ml @ 250 mls/hr Q24H IV Last administered on 10/11/17at 01:23; Start 10/08/17 at 02:00; Stop 10/11/17 at 14:27 ; Status DC Methylprednisolone Sodium Succinate (SoluMEDROL INJ) 40 mg Q8HR IV PUSH Last administered on 10/12/17at 05:15; Start 10/08/17 at 06:00; Stop 10/12/17 at 09:06; Status DC Nicardipine HCl 25 mg/Sodium Chloride 260 ml @ 52 mls/hr TITRATE PRN IV Blood Pressure Management Last administered on 10/09/17at 09:51; Start 10/08/17 at 02: 45 Heparin Sodium (Porcine) (Heparin Inj) 5,000 units ONCE ONCE IV Last administered on 10/08/17at 03:58; Start 10/08/17 at 03:45; Stop 10/08/17 at 03:46 ; Status DC Heparin Sodium (Porcine) (Heparin Inj) 5,000 units UNSCH PRN IV APTT LESS THAN 25; Start 10/08/17 at 09:45; Stop 10/08/17 at 09:51; Status DC Heparin Sodium (Porcine) (Heparin Inj) 2,500 units UNSCH PRN IV APTT 25 TO 39; Start 10/08/17 at 09:45; Stop 10/08/17 at 09:51; Status DC Heparin Sodium/ Dextrose 250 ml @ 9 mls/hr TITRATE PRN IV Coagulation Management Last administered on 10/09/17at 02:12; Start 10/08/17 at 03:45; Stop 10/08/17 at 09:50; Status DC Nitroglycerin/ Dextrose 250 ml @ 1.5 mls/hr TITRATE PRN IV Hypertension; Start 10/08/17 at 03:45; Stop 10/09/17 at 22:54; Status DC Aspirin (Aspirin Chew) 324 mg STAT ONCE OG-TUBE Last administered on at 10:10; Start 10/08/17 at 07:00; Stop 10/08/17 at 07:01; Status DC Metoprolol Tartrate (Lopressor) 25 mg Q8HR OG-TUBE ; Start 10/08/17 at 09:00; Stop 10/08/17 at 09:32; Status DC Morphine Sulfate (Roxanol Liq) 10 mg Q4H OG-TUBE Last administered on 10/12/17at 09:14; Start 10/08/17 at 09:00; Stop 10/12/17 at 09:52; Status DC Insulin Aspart (NovoLOG SUPPLEMENTAL SCALE) 1 Q4HR SQ Last administered on at 12:54; Start 10/08/17 at 12:00; Stop 10/13/17 at 15:08; Status DC Dextrose (D50w (Vial) Inj) 25 ml UNSCH PRN IV HYPOGLYCEMIA-SEE COMMENTS; Start 10/08/17 at 09:15 Glucagon (Glucagon Inj) 1 mg UNSCH PRN IM/SQ HYPOGLYCEMIA-SEE COMMENTS; Start 10/08/17 at 09:15 Furosemide (Lasix Inj) 40 mg DAILY IV PUSH Last administered on 10/10/17at 07:44 ; Start 10/08/17 at 09:45; Stop 10/10/17 at 11:03; Status DC Heparin Sodium/ Dextrose 250 ml @ 9 mls/hr TITRATE PRN IV Coagulation Management Last administered on 10/10/17at 01:02; Start 10/08/17 at 09:45; Stop 10/10/17 at 11:01; Status DC Hydralazine HCl (Apresoline) 50 mg Q8HR PO Last administered on 10/10/17at 05:10 ; Start 10/08/17 at 09:45; Stop 10/10/17 at 11:02; Status DC Cefepime HCl 2000 mg/Sodium Chloride 100 ml @ 200 mls/hr Q12HR IV Last administered on 10/11/17at 08:46; Start 10/08/17 at 21:00; Stop 10/11/17 at 14:27 ; Status DC Potassium Chloride 100 ml @ 50 mls/hr Q2H PRN IV For Potassium 2.8 - 3.2 mEq/L ; Start 10/09/17 at 05:45 Potassium Chloride 100 ml @ 50 mls/hr Q2H PRN IV For Potassium 2.8 - 3.2 mEq/ L Last administered on 10/13/17at 22:19; Start 10/09/17 at 05:45 Potassium Bicarb/ Potassium Chloride (K-Lyte Cl Eff) 50 meq UNSCH PRN PO For Potassium 3.3 - 3.5 mEq/L; Start 10/09/17 at 05:45 Potassium Chloride 100 ml @ 25 mls/hr UNSCH PRN IV For Potassium 3.3 - 3.5 mEq /L; Start 10/09/17 at 05:45 Potassium Chloride 100 ml @ 50 mls/hr Q2H PRN IV For Potassium 3.3 - 3.5 mEq/ L Last administered on 10/13/17at 20:31; Start 10/09/17 at 05:45 Magnesium Sulfate 4 gm/Sodium Chloride 100 ml @ 50 mls/hr UNSCH PRN IV For Magnesium 0.9 - 1.1 mg/dL; Start 10/09/17 at 05:45 Magnesium Oxide (Mag-Ox) 800 mg UNSCH PRN PO For Magnesium 1.2 - 1.6 mg/dL; Start 10/09/17 at 05:45 Magnesium Sulfate 2 gm/Sodium Chloride 100 ml @ 50 mls/hr UNSCH PRN IV For Magnesium 1.2 - 1.6 mg/dL; Start 10/09/17 at 05:45 Potassium Phosphate (K-Phos) 2,000 mg Q4H PRN PO For Phosphorus < 2.5 mg/dL; Start 10/09/17 at 05:45 Sodium Phosphate 30 mmol/Sodium Chloride 250 ml @ 42 mls/hr UNSCH PRN IV For Phosphorus < 2.5 mg/dL; Start 10/09/17 at 05:45 Potassium Phosphate (K-Phos) 2,000 mg UNSCH PRN PO/TUBE SEE LABEL COMMENTS; Start 10/09/17 at 05:45 Potassium Phosphate 30 mmol/ Sodium Chloride 260 ml @ 42 mls/hr UNSCH PRN IV SEE LABEL COMMENTS Last administered on 10/09/17at 13:26; Start 10/09/17 at 05:45 Potassium Bicarb/ Potassium Chloride (K-Lyte Cl Eff) 50 meq ONCE ONCE PO Last administered on 10/09/17at 05:54; Start 10/09/17 at 05:45; Stop 10/09/17 at 05:46; Status DC Morphine Sulfate (Morphine Inj) 5 mg Q4H PRN IV PUSH pain scale 5-10 Last administered on 10/12/17at 03:43; Start 10/09/17 at 16:45; Stop 10/12/17 at 09:52; Status DC Nitroglycerin (Nitrostat Sl) 0.4 mg Q4H PRN SL chest pain Last administered on 10/09/17at 21:12; Start 10/09/17 at 17:45 Nitroglycerin/ Dextrose 250 ml @ 1.5 mls/hr TITRATE PRN IV Chest pain relief Last administered on 10/09/17at 23:17; Start 10/09/17 at 17:45 Metoprolol Tartrate (Lopressor Inj) 5 mg Q5M PRN IV PUSH HR > 100 Last administered on 10/10/17at 00:40; Start 10/09/17 at 23:30 Adenosine (Adenocard Inj) 12 mg STK-MED ONCE .ROUTE ; Start 10/09/17 at 23:46; Stop 10/09/17 at 23:47; Status DC Midazolam HCl (Versed Inj) 5 mg STK-MED ONCE .ROUTE ; Start 10/09/17 at 23:49; Stop 10/09/17 at 23:50; Status DC Magnesium Sulfate/ Dextrose 200 ml @ As Directed STK-MED ONCE .ROUTE ; Start at 23:53; Stop 10/09/17 at 23:54; Status DC Morphine Sulfate (Morphine Inj) 4 mg STK-MED ONCE .ROUTE ; Start 10/09/17 at 23: 59; Stop 10/10/17 at 00:00; Status DC Diltiazem HCl (Cardizem Inj) 25 mg ONCE ONCE IV Last administered on at 00:57; Start 10/10/17 at 00:15; Stop 10/10/17 at 00:16; Status DC Metoprolol Tartrate (Lopressor Inj) 5 mg NOW IV PUSH ; Start 10/10/17 at 00:05; Stop 10/10/17 at 00:20; Status DC Phenylephrine HCl (Neosynephrine Inj) 10 mg STK-MED ONCE .ROUTE Last administered on 10/10/17at 00:55; Start 10/10/17 at 00:11; Stop 10/10/17 at 00:12 ; Status DC Metoprolol Tartrate (Lopressor Inj) 5 mg Q5M PRN IV PUSH UP TO 15 MG NEEDED ; Start 10/10/17 at 00:15; Stop 10/10/17 at 01:00; Status DC Morphine Sulfate (Morphine Inj) 4 mg NOW IV ; Start 10/10/17 at 00:02; Stop at 00:15; Status DC Magnesium Sulfate/ Dextrose 100 ml @ 100 mls/hr Q1H IV Last administered on at 01:01; Start 10/10/17 at 00:00; Stop 10/10/17 at 01:59; Status DC Adenosine (Adenocard Inj) 12 mg NOW IV PUSH ; Start 10/10/17 at 00:00; Stop at 00:15; Status DC Amiodarone HCl 150 mg/Dextrose 100 ml @ 600 mls/hr NOW ONCE IV Last administered on 10/10/17at 00:30; Start 10/10/17 at 00:30; Stop 10/10/17 at 00:39 ; Status DC Amiodarone HCl 450 mg/Dextrose 250 ml @ 33.33 mls/ hr TITRATE PRN IV Per Protocol; Start 10/10/17 at 00:30; Stop 10/10/17 at 00:30; Status DC Phenylephrine HCl 40 mg/Dextrose 500 ml @ 30 mls/hr TITRATE PRN IV Blood Pressure Management Last administered on 10/10/17at 07:46; Start 10/10/17 at 00: 30; Stop 10/11/17 at 14:27; Status DC Terbutaline Sulfate (Brethine Inj) 1 mg UNSCH PRN SQ FOR EXTRAVASATION PROTOCOL ; Start 10/10/17 at 00:30 Amiodarone HCl 450 mg/Sodium Chloride 259 ml @ 34.53 mls/ hr TITRATE PRN IV Per Protocol Last administered on 10/10/17at 07:48; Start 10/10/17 at 00:30; Stop 10/10/17 at 11:01; Status DC Levalbuterol HCl (Xopenex Neb) 1.25 mg Q4HR NEB PRN NEB WHEEZING Last administered on 10/14/17at 09:33; Start 10/10/17 at 05:15 Heparin Sodium/ Sodium Chloride 1,000 ml @ As Directed STK-MED ONCE .ROUTE ; Start 10/10/17 at 10:03; Stop 10/10/17 at 10:04; Status DC Fentanyl Citrate (fentaNYL INJ) 100 mcg STK-MED ONCE .ROUTE ; Start 10/10/17 at 10:20; Stop 10/10/17 at 10:21; Status DC Atropine Sulfate (Atropine Inj) 0.5 mg UNSCH PRN IV PUSH VAGAL REPONSE; Start 10/10/17 at 11:00 Isosorbide Mononitrate (Imdur) 60 mg BID@0700,2100 PO Last administered on at 06:19; Start 10/10/17 at 11:15 Ranolazine (Ranexa) 1,000 mg Q12HR PO Last administered on 10/14/17at 08:44; Start 10/10/17 at 11:15 Furosemide (Lasix Inj) 40 mg BID@0900,1800 IV PUSH Last administered on at 18:02; Start 10/10/17 at 18:00; Stop 10/12/17 at 09:06; Status DC Iohexol (OMNIPAQUE 350 INJ (Seam Closer)) 100 ml STK-MED ONCE OTHER ; Start at 14:14; Stop 10/10/17 at 14:15; Status DC Levofloxacin/ Dextrose 100 ml @ 100 mls/hr Q24H IV Last administered on at 16:59; Start 10/11/17 at 15:00 Enoxaparin Sodium (Lovenox Inj) 40 mg Q24H SQ Last administered on 10/13/17at 16: 59; Start 10/11/17 at 15:00 Methylprednisolone Sodium Succinate (SoluMEDROL INJ) 40 mg Q12HR IV PUSH Last administered on 10/14/17at 08:43; Start 10/12/17 at 21:00 Furosemide (Lasix) 40 mg BID@09,18 PO Last administered on 10/14/17at 08:44; Start 10/12/17 at 09:10 Morphine Sulfate (Oramorph Sr) 60 mg Q8H PO Last administered on 10/14/17at 06:20 ; Start 10/12/17 at 13:00 Potassium Chloride (KCl) 20 meq ONCE ONCE PO Last administered on 10/13/17at 12: 53; Start 10/13/17 at 12:45; Stop 10/13/17 at 12:46; Status DC Insulin Aspart (NovoLOG SUPPLEMENTAL SCALE) 1 ACHS SQ Last administered on at 08:00; Start 10/13/17 at 17:00 A/P Problem List: (1) NSTEMI (non-ST elevated myocardial infarction) ICD Code: I21.4 - Non-ST elevation (NSTEMI) myocardial infarction (2) COPD exacerbation ICD Code: J44.1 - Chronic obstructive pulmonary disease with (acute) exacerbation (3) DM (diabetes mellitus) ICD Code: E11.9 - Type 2 diabetes mellitus without complications Status: Chronic Assessment and Plan 72-year-old female who presented with respiratory distress and chest pain Acute NSTEMI Patient was distended on arrival but had another episode of chest pain with another increase in her troponins. s/p LHC which revealed only 3 out of 5 grafts patent Left main artery shows 99% stenosis, heavily calcified She is too high risk for intervention, medical management recommended Continue Imdur and Ranexa Continue ASA, Lipitor, Lopressor Nitroglycerin as needed We had a long discussion about eliminating cholesterol in her diet Cardiology has signed off COPD exacerbation Weaning Solu-Medrol Continue Spiriva and DuoNeb's Encourage incentive spirometry Wean off of oxygen Lung amaya are clear and patient is stable for transfer out of the ICU Elevated sugars secondary to steroids and diabetes Atrial fibrillation with RVR Also reported as ischemic SVT Converted with amiodarone Patient is currently sinus rhythm Follow on telemetry Infectious disease Sputum cultures from 527 show Haemophilus influenza which is sensitive to most antibiotics except Bactrim Continue Levaquin IV daily, recommended stop date is 10/14 DVT prophylaxis Lovenox DIABETES WATCH SUGARS DIABETIC DIET DW RN AND PT Discharge Planning Patient is stable for transfer to [facility] Anticipate discharge in 1-2 days Walk test prior to discharge PT suggested rehab, reevaluation recommended given patient's improved breathing Bart Radford DO Oct 14, 2017 10:59
[2017-10-14] MEDS: ENOXAPARIN SODIUM 40 MG/0.4 ML SYRINGE SQ SCH (15:00)
[2017-10-14] MEDS: LEVOFLOXACIN 500 MG PREMIX INJ 100 ML IV SCH (16:49)
[2017-10-14] MEDS: ATORVASTATIN 10 MG TAB PO SCH (21:26)
[2017-10-14] MEDS: guaiFENesin E.R. 600 MG TAB PO SCH (21:29)
[2017-10-15] VITALS (8 sets, daily range): BP systolic 98–130; BP diastolic 51–66; PULSE 61–84; RESP 16–20; TEMP 98.2–98.6; O2SAT 94–98
[2017-10-15] MEDS: MORPHINE SULFATE 60 MG CONTROLLED RELEASE TAB PO SCH ×3 (05:03→20:36)
[2017-10-15] MEDS: ISOSORBIDE MONONITRATE 60 MG CR TAB (IMDUR) PO SCH ×2 (05:04→20:41)
[2017-10-15] MEDS: methylPREDNISolone SOD SUCC 40 MG/1 ML VIAL IV PUSH SCH ×2 (08:49→20:36)
[2017-10-15] MEDS: RANOLAZINE 500 MG EXTENDED RELEASE TAB PO SCH ×2 (08:49→20:35)
[2017-10-15] MEDS: FAMOTIDINE 20 MG/2 ML VIAL IV PUSH SCH (08:50)
[2017-10-15] MEDS: guaiFENesin E.R. 600 MG TAB PO SCH ×2 (08:50→20:35)
[2017-10-15] MEDS: ASPIRIN 81 MG CHEW TAB CHEW SCH (08:50)
[2017-10-15] MEDS: FUROSEMIDE 40 MG TAB PO SCH ×2 (08:51→17:48)
[2017-10-15] MEDS: DOCUSATE SODIUM 50 MG/SENNA 8.6 MG TAB PO SCH ×2 (08:51→20:36)
[2017-10-15] MEDS: SODIUM CHLORIDE 0.9% FLUSH 10 ML FLUSH IV FLUSH SCH ×2 (08:52→20:37)
[2017-10-15] MEDS: ARTIFICIAL TEARS OPTH SOLN 15 ML BTL EACH EYE SCH ×3 (08:52→17:48)
[2017-10-15] MEDS: TIOTROPIUM BROMIDE 18 MCG INH INH SCH (08:53)
[2017-10-15] MEDS: INSULIN ASPART SUPPLEMENTAL SCALE SQ SCH ×4 (09:00→20:41)
[2017-10-15 09:29] LABS: AUTOMATED NEUTROPHIL # 14.8 TH/MM3 (1.8-7.7); BASOPHIL % 0.2 % (0.0-2.0); EOSINOPHIL % 0.1 % (0.0-4.0); HEMATOCRIT 41.8 % (35.0-46.0); HEMOGLOBIN 13.8 GM/DL (11.6-15.3); LYMPH % 8.1 % (9.0-44.0); LYMPHOCYTE # 1.4 TH/MM3 (1.0-4.8); MEAN CELL VOLUME 84.9 FL (80.0-100.0); MEAN PLATELET VOLUME 7.7 FL (7.0-11.0); MONOCYTE # 0.8 TH/MM3 (0-0.9); NEUT % 86.6 % (16.0-70.0); PLATELET COUNT 241 TH/MM3 (150-450); RED BLOOD COUNT 4.92 MIL/MM3 (4.00-5.30); RED CELL DISTRIBUTION WIDTH 14.3 % (11.6-17.2); WHITE BLOOD COUNT 17.1 TH/MM3 (4.0-11.0)
[2017-10-15 09:57] LABS: ALBUMIN 2.8 GM/DL (3.4-5.0); AST (GOT) 16 U/L (15-37); BICARBONATE 34.5 MEQ/L (21.0-32.0); BLOOD UREA NITROGEN 18 MG/DL (7-18); CALCIUM 8.3 MG/DL (8.5-10.1); CHLORIDE 98 MEQ/L (98-107); CREATININE 0.76 MG/DL (0.50-1.00); GLOMERULAR FILTRATION RATE 75 ML/MIN (>89); GLUCOSE,RANDOM 157 MG/DL (74-106); MAGNESIUM 2.6 MG/DL (1.5-2.5); SODIUM (NA) 138 MEQ/L (136-145)
[2017-10-15 10:08] LABS: ALKALINE PHOSPHATASE 76 U/L (45-117); ALT (GPT) 20 U/L (10-53); FREE T4 0.86 NG/DL (0.76-1.46); LYMPHOCYTES 13 % (9-44); MONOCYTES 7 % (0-8); MYELOCYTES 2 % (0-0); NEUTROPHIL # MANUAL DIFF 13.7 TH/MM3 (1.8-7.7); PHOSPHORUS 2.8 MG/DL (2.5-4.9); POLYS (SEG NEUTROPHILS) 78 % (16-70); TOTAL BILIRUBIN ADULT 0.6 MG/DL (0.2-1.0); TOTAL PROTEIN 5.5 GM/DL (6.4-8.2)
--- NOTE | 2017-10-15 10:09 | HHI.FPPN ---
Subjective Remarks still on O2 c/o cough and weakness c/o anxiety d/w RN and therapy Objective Vitals Vital Signs Date Time Temp Pulse Resp B/P (MAP) Pulse Ox O2 Delivery O2 Flow Rate FiO2 10/15/17 09:53 Nasal Cannula 3.00 10/15/17 04:00 98.6 69 17 98/51 (67) 96 10/15/17 04:00 64 10/15/17 00:20 Nasal Cannula 3.00 10/15/17 00:00 98.6 72 17 110/62 (78) 97 10/14/17 20:00 98.4 70 19 108/66 (80) 96 10/14/17 20:00 Nasal Cannula 3.00 10/14/17 19:46 77 10/14/17 16:00 98.0 91 24 111/93 (99) 93 10/14/17 16:00 91 10/14/17 14:01 20 10/14/17 12:00 74 10/14/17 12:00 74 17 110/60 (77) 93 I/O 10/14/17 10/14/17 10/14/17 10/15/17 10/15/17 10/15/17 07:00 15:00 23:00 07:00 15:00 23:00 Intake Total 550 ml 720 ml Output Total 1101 ml Balance -551 ml 720 ml Intake Oral 550 ml 720 ml Output Urine Total 1100 ml Stool Total 1 ml # Voids 4 # Bowel Movements 1 Result Diagram: 10/15/17 0823 10/15/17 0823 Objective Remarks GENERAL: SKIN: Warm and dry. HEAD: Atraumatic. Normocephalic. EYES: Pupils equal and round. No scleral icterus. No injection or drainage. ENT: No nasal bleeding or discharge. Mucous membranes pink and moist. NECK: Trachea midline. No JVD. CARDIOVASCULAR: Regular rate and rhythm. RESPIRATORY: patchy ronchi, sl basilar crackles, harsh cough GASTROINTESTINAL: Abdomen soft, non-tender, nondistended. Hepatic and splenic margins not palpable. MUSCULOSKELETAL: Extremities without clubbing, cyanosis, or edema. No obvious deformities. NEUROLOGICAL: Awake and alert. No obvious cranial nerve deficits. Motor grossly within normal limits. 3 out of 5 muscle strength in the arms and legs. Normal speech. PSYCHIATRIC: Appropriate mood and affect; insight and judgment normal. Medications and IVs Current Medications Medications (Trade) Dose Ordered Sig/Indu Route Start Time Stop Time Status Last Admin Propofol 100 ml @ 2.13 mls/hr TITRATE PRN IV 10/07/17 19:15 10/09/17 10:23 ([facility] [place] Nursing Information) Patient in critical care unit? Ass... Q361D .XX 10/07/17 23:15 (Aspirin Chew) 81 mg DAILY CHEW 10/08/17 09:00 10/15/17 08:50 (Lipitor) 10 mg HS PO 10/08/17 21:00 10/14/17 21:26 (Spiriva Inh) 2 mcg DAILY INH 10/08/17 09:00 10/15/17 08:53 (NS Flush) 2 ml UNSCH PRN IV FLUSH 10/08/17 01:00 (NS Flush) 2 ml BID IV FLUSH 10/08/17 09:00 10/15/17 08:52 (Tylenol) 650 mg Q6H PRN PO 10/08/17 01:00 (Pepcid Inj) 20 mg Q12HR IV PUSH 10/08/17 09:00 10/15/17 08:50 (Ativan Inj) 1 mg Q1H PRN IV PUSH 10/08/17 01:00 10/10/17 06:23 (Tears Naturale Opth Soln) 1 drop TID EACH EYE 10/08/17 09:00 10/09/17 18:00 (Zofran Inj) 4 mg Q6H PRN IV PUSH 10/08/17 01:00 ([facility] [place] Nursing Information) 1 Q361D XX 10/08/17 01:00 (Chlorhexidine 2% Cloth) Taper DAILY@04 TOP 10/08/17 04:00 10/04/18 03:59 10/14/17 04:00 (Chlorhexidine 2% Cloth) 3 pack UNSCH PRN TOP 10/08/17 01:00 (Stephanie-Colace) 1 tab BID PO 10/08/17 09:00 10/14/17 08:43 (Milk Of Magnesia Liq) 30 ml Q12H PRN PO 10/08/17 01:00 (Senokot) 17.2 mg Q12H PRN PO 10/08/17 01:00 10/13/17 10:09 (Dulcolax Supp) 10 mg DAILY PRN RECTAL 10/08/17 01:00 (Lactulose Liq) 30 ml DAILY PRN PO 10/08/17 01:00 Nicardipine HCl 25 mg/Sodium Chloride 260 ml @ 52 mls/hr TITRATE PRN IV 10/08/17 02:45 10/09/17 09:51 (D50w (Vial) Inj) 25 ml UNSCH PRN IV 10/08/17 09:15 (Glucagon Inj) 1 mg UNSCH PRN IM/SQ 10/08/17 09:15 (Nitrostat Sl) 0.4 mg Q4H PRN SL 10/09/17 17:45 10/09/17 21:12 Nitroglycerin/ Dextrose 250 ml @ 1.5 mls/hr TITRATE PRN IV 10/09/17 17:45 10/09/17 23:17 (Lopressor Inj) 5 mg Q5M PRN IV PUSH 10/09/17 23:30 10/10/17 00:40 (Brethine Inj) 1 mg UNSCH PRN SQ 10/10/17 00:30 (Xopenex Neb) 1.25 mg Q4HR NEB PRN NEB 10/10/17 05:15 10/14/17 09:33 (Atropine Inj) 0.5 mg UNSCH PRN IV PUSH 10/10/17 11:00 (Imdur) 60 mg BID@0700,2100 PO 10/10/17 11:15 10/15/17 05:04 (Ranexa) 1,000 mg Q12HR PO 10/10/17 11:15 10/15/17 08:49 Levofloxacin/ Dextrose 100 ml @ 100 mls/hr Q24H IV 10/11/17 15:00 10/14/17 16:49 (Lovenox Inj) 40 mg Q24H SQ 10/11/17 15:00 10/14/17 15:00 (SoluMEDROL INJ) 40 mg Q12HR IV PUSH 10/12/17 21:00 10/15/17 08:49 (Lasix) 40 mg BID@09,18 PO 10/12/17 09:10 10/15/17 08:51 (Oramorph Sr) 60 mg Q8H PO 10/12/17 13:00 10/15/17 05:03 (NovoLOG SUPPLEMENTAL SCALE) 1 ACHS SQ 10/13/17 17:00 10/15/17 09:00 (Mucinex Er) 600 mg BID PO 10/14/17 22:30 10/15/17 08:50 A/P Assessment and Plan Assessment and Plan 72-year-old female who presented with respiratory distress and chest pain Acute NSTEMI s/p LHC which revealed only 3 out of 5 grafts patent Left main artery shows 99% stenosis, heavily calcified She is too high risk for intervention, medical management recommended Continue Imdur and Ranexa Continue ASA, Lipitor, Lopressor Nitroglycerin as needed Cardiology has signed off COPD exacerbation Weaning Solu-Medrol Continue Spiriva and DuoNeb's Encourage incentive spirometry Wean off of oxygen Elevated sugars secondary to steroids and diabetes Atrial fibrillation with RVR Also reported as ischemic SVT Converted with amiodarone Patient is currently sinus rhythm Follow on telemetry Infectious disease Sputum cultures from 527 show Haemophilus influenza which is sensitive to most antibiotics except Bactrim Levaquin IV daily, - stop date was 10/14 DVT prophylaxis Lovenox DIABETES WATCH SUGARS DIABETIC DIET DW RN AND PT Discharge Planning- Anticipate discharge in 1-2 days Walk test prior to discharge PT wants to go to rehab tomorrow. Yohan Davison MD Oct 15, 2017 10:09
[2017-10-15] MEDS: NITROGLYCERIN 0.4 MG SL 25 TABS/BTL SL PRN (13:33)
[2017-10-15] MEDS: ONDANSETRON HCL 4 MG/2 ML VIAL IV PUSH PRN (13:34)
[2017-10-15] MEDS: ENOXAPARIN SODIUM 40 MG/0.4 ML SYRINGE SQ SCH (15:29)
[2017-10-15] MEDS: LEVOFLOXACIN 500 MG PREMIX INJ 100 ML IV SCH (15:29)
[2017-10-15 16:44] LABS: HEMOGLOBIN A1C 7.6 % (4.3-6.0)
[2017-10-15] MEDS: ATORVASTATIN 10 MG TAB PO SCH (20:35)
[2017-10-15] MEDS: FAMOTIDINE 20 MG TAB PO SCH (20:36)
[2017-10-16] VITALS (15 sets, daily range): BP systolic 98–197; BP diastolic 53–93; PULSE 59–88; RESP 16–20; TEMP 98–98.3; O2SAT 94–97
[2017-10-16] MEDS: CHLORHEXIDINE GLUCONATE 2 % 1 PACK (2 CLOTHS) TOP SCH (00:38)
[2017-10-16] MEDS: MORPHINE SULFATE 60 MG CONTROLLED RELEASE TAB PO SCH ×3 (06:02→21:17)
[2017-10-16] MEDS: ISOSORBIDE MONONITRATE 60 MG CR TAB (IMDUR) PO SCH ×2 (06:02→21:00)
[2017-10-16] MEDS ORDERED: ISOS60TA PO (08:15)
[2017-10-16] MEDS ORDERED: FURO40TA PO (08:15)
[2017-10-16] MEDS ORDERED: PRED20 PO (08:15)
[2017-10-16] MEDS ORDERED: guaiFENesin ER PO (08:15)
[2017-10-16] MEDS ORDERED: RANO500 PO (08:15)
--- NOTE | 2017-10-16 08:16 | HHI.DCPOC ---
Discharge Care Plan Diagnosis: (1) NSTEMI (non-ST elevated myocardial infarction) (2) COPD exacerbation (3) HTN (hypertension) (4) CAD (coronary artery disease) Goals to Promote Your Health * To prevent worsening of your condition and complications * To maintain your health at the optimal level Directions to Meet Your Goals Take your medications as prescribed Follow your dietary instruction Follow activity as directed Keep your appointments as scheduled Take your immunizations and boosters as scheduled If your symptoms worsen call your PCP, if no PCP go to Urgent Care Center or Emergency Room Smoking is Dangerous to Your Health. Avoid second hand smoke Call the 24-hour hour crisis hotline for domestic abuse at Juana Paredes PA-C Oct 16, 2017 8:16 am
[2017-10-16] MEDS ORDERED: OXYGENDME NAS.CANULA (08:19)
[2017-10-16] MEDS: ARTIFICIAL TEARS OPTH SOLN 15 ML BTL EACH EYE SCH ×3 (09:00→18:00)
[2017-10-16] MEDS: guaiFENesin E.R. 600 MG TAB PO SCH ×2 (09:10→21:17)
[2017-10-16] MEDS: FAMOTIDINE 20 MG TAB PO SCH ×2 (09:11→21:17)
[2017-10-16] MEDS: ASPIRIN 81 MG CHEW TAB CHEW SCH (09:11)
[2017-10-16] MEDS: FUROSEMIDE 40 MG TAB PO SCH ×2 (09:11→18:58)
[2017-10-16] MEDS: RANOLAZINE 500 MG EXTENDED RELEASE TAB PO SCH ×2 (09:11→21:00)
[2017-10-16] MEDS: DOCUSATE SODIUM 50 MG/SENNA 8.6 MG TAB PO SCH ×2 (09:11→21:16)
[2017-10-16] MEDS: methylPREDNISolone SOD SUCC 40 MG/1 ML VIAL IV PUSH SCH ×2 (09:12→21:17)
[2017-10-16] MEDS: SODIUM CHLORIDE 0.9% FLUSH 10 ML FLUSH IV FLUSH SCH ×2 (09:12→21:00)
[2017-10-16] MEDS: INSULIN ASPART SUPPLEMENTAL SCALE SQ SCH ×4 (09:13→21:16)
[2017-10-16] MEDS ORDERED: METF500T PO (13:23)
--- NOTE | 2017-10-16 13:25 | HHI.PR ---
Subjective Remarks Follow-up for COPD exacerbation, pneumonia. The patient says she is not feeling well today. She says there is no way she can leave the hospital today. She reports lightheadedness and overall feeling very weak. Explained to her that this is the reason why she needs rehab, however she states she is not comfortable leaving today, but will agree to going to rehab first thing in the morning. She reports continued mild shortness of breath and nonproductive cough. Denies fevers or chills. Denies chest pain. O2 sat 97% on 3 L nasal cannula. She had a normal formed bowel movement today. She is tolerating oral intake. She has no other medical complaints at this time. Objective Vitals Vital Signs Date Time Temp Pulse Resp B/P (MAP) Pulse Ox O2 Delivery O2 Flow Rate FiO2 10/16/17 08:06 98.3 63 17 119/81 (94) 97 10/16/17 08:00 Nasal Cannula 3.00 10/16/17 04:00 61 10/16/17 03:25 Nasal Cannula 3.00 10/16/17 03:23 98.3 59 18 98/60 (73) 10/16/17 00:00 98.0 65 18 99/65 (76) 95 10/16/17 00:00 61 10/15/17 20:00 82 10/15/17 17:42 98.4 61 20 130/66 (87) 94 10/15/17 15:52 64 I/O 10/15/17 10/15/17 10/15/17 10/16/17 10/16/17 10/16/17 06:59 14:59 22:59 06:59 14:59 22:59 Intake Total 660 ml Output Total 1500 ml Balance 660 ml -1500 ml Intake Oral 560 ml IV Total 100 ml Output Urine Total 1500 ml # Voids 4 # Bowel Movements 0 Result Diagram: 10/15/1782210/15/17822 Imaging Last Impressions Chest X-Ray 10/10/17 0000 Signed Impressions: CONCLUSION: 1. Interval removal of the endotracheal and nasogastric tubes. 2. Chronic interstitial changes within the pulmonary parenchyma. 3. The appearance of the parenchyma similar to the prior. Abdomen X-Ray 10/08/17 0000 Signed Impressions: CONCLUSION: Tip of the NG tube inside the stomach. Objective Remarks GENERAL: Well-nourished, well-developed elderly female patient in NAD. SKIN: Warm and dry. No rash. HEENT: Normocephalic. Atraumatic. Pupils equal and round. Mucous membranes pink and moist. NECK: Supple. Trachea midline. CARDIOVASCULAR: Regular rate and rhythm. No murmur appreciated. RESPIRATORY: No accessory muscle use. Breath sounds diminished at bilateral bases, otherwise clear, no wheezing. Breath sounds equal bilaterally. GASTROINTESTINAL: Abdomen soft, non-tender, nondistended. Normoactive bowel sounds x4. MUSCULOSKELETAL: No obvious deformities. Extremities without clubbing, cyanosis , or edema. NEUROLOGICAL: Awake and alert. No obvious cranial nerve deficits. Motor grossly within normal limits. Moving all extremities spontaneously. Normal speech. PSYCHIATRIC: Appropriate mood and affect; insight and judgment normal. Procedures 10/10/2017 INDICATION: Non-ST elevation myocardial infarction. PROCEDURES PERFORMED: 1. Fluoroscopy with interpretation. 2. Coronary angiography. 3. Left heart catheterization. 4. Coronary artery bypass graft angiography. METHOD: Risks, benefits and alternatives discussed with the patient. The patient understood and consented to the procedure. The patient brought into the catheterization lab, and placed on the catheterization table. The right groin prepped and draped in a sterile fashion. The right groin was anesthetized with 2% lidocaine. The right common femoral artery was cannulated. A 5-Sami 11 cm sheath was placed without difficulty. CORONARY ANGIOGRAPHY: 1. Left main coronary artery appears to be 99% stenosed with heavy calcium present. 2. Proximal left anterior descending coronary artery is subtotally occluded, but does give rise to a moderate-sized first diagonal branch which is fed antegrade from the [employer] coronary. The left anterior descending coronary is then occluded just beyond the takeoff of its diagonal branch. 3. Left circumflex is subtotally occluded. It has an occluded first obtuse marginal branch and the remainder of the circumflex is a small caliber size. 4. Right coronary artery is occluded in the proximal to mid segment and collateralized from [id number] collaterals. CORONARY BYPASS GRAFT ANGIOGRAPHY: 1. Left internal mammary to the left anterior descending coronary artery is widely patent. It does backfill to the septal perforators. Moderate diffuse disease throughout. 2. Saphenous vein graft to the diagonal branch has 2 tandem 50 percent stenoses present. Diagonal branch is small in caliber size. This is diagonal branch #2. 3. Saphenous vein graft to the obtuse marginal branch is widely patent. There are mild luminal irregularities. 4. The saphenous vein graft to the right coronary artery is occluded. 5. The jump graft from the posterior descending to the posterolateral branch is occluded. LEFT HEART CATHETERIZATION: Intraventricular hemodynamics measured 114/23 mmHg with a left ventricular end-diastolic pressure of 33 mmHg. CONCLUSIONS: 1. Severe 3-vessel [employer] coronary artery disease. 2. Three of five coronary bypass grafts are patent. 3. Elevated left-sided filling pressures. PLAN: Saphenous vein graft to the right coronary and jump graft are occluded, but well collateralized and unlikely to be the culprit. The other grafts appear patent. The diagonal graft does have moderate disease, but would not be causing resting symptoms. The first diagonal branch is fed through the [employer] coronary system within a 99% occluded left main which could be a very high risk intervention. At this point, I think it would be best to attempt aggressive medical management. We will initiate long-acting nitrate in addition or ranolazine. Her left ventricular end-diastolic pressure is also elevated, so we will increase her Lasix to twice daily. --- Status post vent and intubation Medications and IVs Current Medications Medications (Trade) Dose Ordered Sig/Indu Route Start Time Stop Time Status Last Admin Propofol 100 ml @ 2.13 mls/hr TITRATE PRN IV 10/07/17 19:15 10/09/17 10:23 ([facility] [place] Nursing Information) Patient in critical care unit? Ass... Q361D .XX 10/07/17 23:15 (Aspirin Chew) 81 mg DAILY CHEW 10/08/17 09:00 10/16/17 09:11 (Lipitor) 10 mg HS PO 10/08/17 21:00 10/15/17 20:35 (Spiriva Inh) 2 mcg DAILY INH 10/08/17 09:00 10/15/17 08:53 (NS Flush) 2 ml UNSCH PRN IV FLUSH 10/08/17 01:00 (NS Flush) 2 ml BID IV FLUSH 10/08/17 09:00 10/16/17 09:12 (Tylenol) 650 mg Q6H PRN PO 10/08/17 01:00 (Ativan Inj) 1 mg Q1H PRN IV PUSH 10/08/17 01:00 10/10/17 06:23 (Tears Naturale Opth Soln) 1 drop TID EACH EYE 10/08/17 09:00 10/09/17 18:00 (Zofran Inj) 4 mg Q6H PRN IV PUSH 10/08/17 01:00 10/15/17 13:34 ([facility] [place] Nursing Information) 1 Q361D XX 10/08/17 01:00 (Chlorhexidine 2% Cloth) Taper DAILY@04 TOP 10/08/17 04:00 10/04/18 03:59 10/14/17 04:00 (Chlorhexidine 2% Cloth) 3 pack UNSCH PRN TOP 10/08/17 01:00 (Stephanie-Colace) 1 tab BID PO 10/08/17 09:00 10/16/17 09:11 (Milk Of Magnesia Liq) 30 ml Q12H PRN PO 10/08/17 01:00 (Senokot) 17.2 mg Q12H PRN PO 10/08/17 01:00 10/13/17 10:09 (Dulcolax Supp) 10 mg DAILY PRN RECTAL 10/08/17 01:00 (Lactulose Liq) 30 ml DAILY PRN PO 10/08/17 01:00 Nicardipine HCl 25 mg/Sodium Chloride 260 ml @ 52 mls/hr TITRATE PRN IV 10/08/17 02:45 10/09/17 09:51 (D50w (Vial) Inj) 25 ml UNSCH PRN IV 10/08/17 09:15 (Glucagon Inj) 1 mg UNSCH PRN IM/SQ 10/08/17 09:15 (Nitrostat Sl) 0.4 mg Q4H PRN SL 10/09/17 17:45 10/15/17 13:33 Nitroglycerin/ Dextrose 250 ml @ 1.5 mls/hr TITRATE PRN IV 10/09/17 17:45 10/09/17 23:17 (Lopressor Inj) 5 mg Q5M PRN IV PUSH 10/09/17 23:30 10/10/17 00:40 (Brethine Inj) 1 mg UNSCH PRN SQ 10/10/17 00:30 (Xopenex Neb) 1.25 mg Q4HR NEB PRN NEB 10/10/17 05:15 10/14/17 09:33 (Atropine Inj) 0.5 mg UNSCH PRN IV PUSH 10/10/17 11:00 (Imdur) 60 mg BID@0700,2100 PO 10/10/17 11:15 10/16/17 06:02 (Ranexa) 1,000 mg Q12HR PO 10/10/17 11:15 10/16/17 09:11 Levofloxacin/ Dextrose 100 ml @ 100 mls/hr Q24H IV 10/11/17 15:00 10/15/17 15:29 (Lovenox Inj) 40 mg Q24H SQ 10/11/17 15:00 10/15/17 15:29 (SoluMEDROL INJ) 40 mg Q12HR IV PUSH 10/12/17 21:00 10/16/17 09:12 (Lasix) 40 mg BID@09,18 PO 10/12/17 09:10 10/16/17 09:11 (Oramorph Sr) 60 mg Q8H PO 10/12/17 13:00 10/16/17 06:02 (NovoLOG SUPPLEMENTAL SCALE) 1 ACHS SQ 10/13/17 17:00 10/16/17 09:13 (Mucinex Er) 600 mg BID PO 10/14/17 22:30 10/16/17 09:10 (Pepcid) 20 mg BID PO 10/15/17 21:00 10/16/17 09:11 A/P Problem List: (1) NSTEMI (non-ST elevated myocardial infarction) ICD Code: I21.4 - Non-ST elevation (NSTEMI) myocardial infarction (2) COPD exacerbation ICD Code: J44.1 - Chronic obstructive pulmonary disease with (acute) exacerbation (3) DM (diabetes mellitus) ICD Code: E11.9 - Type 2 diabetes mellitus without complications Status: Chronic Assessment and Plan 72-year-old female who presented with respiratory distress and chest pain Acute NSTEMI Troponins trended, 0.02, greater than 40, 36.5, 10.10, 10.50 s/p C which revealed only 3 out of 5 grafts patent Left main artery shows 99% stenosis, heavily calcified She is too high risk for intervention, medical management recommended Continue Imdur and Ranexa Continue ASA, Lipitor, Lopressor Nitroglycerin as needed Cardiology has signed off No further complaints of chest pain COPD exacerbation Weaning Solu-Medrol, currently on 40 mg twice daily Continue Spiriva and DuoNeb's Encourage incentive spirometry Wean off of oxygen, failed O2 walk test with oxygen saturation 87% Improving, however patient does not feel ready for discharge Atrial fibrillation with RVR Also reported as ischemic SVT Converted with amiodarone Patient is currently sinus rhythm Follow on telemetry Suspected Pneumonia Sputum cultures from 10/07 show Haemophilus influenza which is sensitive to most antibiotics except Bactrim S/p IV Cefepime/Azithro 10/08-10/11, transitioned to Levaquin on 10/11, stop date Diabetes Mellitus HgbA1c 7.6 Expect elevated blood sugars secondary to steroids Monitor Accu-checks, cover with SSI while in hospital Will start on metformin 500mg po bid at discharge DVT prophylaxis Lovenox Discharge Planning Patient does not feel ready for discharge today. She agrees to discharge to rehab early tomorrow morning on 10/17. Discharge prepared. [id number] signed and placed in chart. Juana Paredes PA-C Oct 16, 2017 1:25 pm
[2017-10-16] MEDS: LEVOFLOXACIN 500 MG PREMIX INJ 100 ML IV SCH (14:56)
[2017-10-16] MEDS: ENOXAPARIN SODIUM 40 MG/0.4 ML SYRINGE SQ SCH (14:57)
[2017-10-16] MEDS: TIOTROPIUM BROMIDE 18 MCG INH INH SCH (14:58)
[2017-10-16] MEDS: NITROGLYCERIN 0.4 MG SL 25 TABS/BTL SL PRN ×2 (19:10→19:14)
[2017-10-16] MEDS: ONDANSETRON HCL 4 MG/2 ML VIAL IV PUSH PRN (19:31)
--- NOTE | 2017-10-16 19:41 | HHI.PR ---
Addendum to Inpatient Note Addendum Reason: Additional Documentation Additional Information S: Resident team paged for [place] at 1910. Resident team arrived to find a 72- year-old female who had acute onset of nausea and chest pain. Nursing staff reports that at 1905 patient complained of chest and back pain as well as nausea /vomiting. At that time she was satting 94% on room air, and heart rate of 84, respiratory rate of 20 and blood pressure 197/93. Patient was placed on 2 L nasal cannula and oxygen saturation improved to 97%. Patient rated her pain as an 8 initially. Patient received 2 doses of nitroglycerin and her pain improved to a 4 and blood pressure improved to 143/81. Patient continuing to have nausea but pain was a 0 at resident's arrival. O: Vital signs as above GEN: Elderly female with nasal cannula in place sitting upright in bed in no acute distress CV: Warm and well perfused, regular rate and rhythm with no murmurs appreciated RESP: Coarse breath sounds bilaterally, good air movement bilaterally with no crackles or wheezes appreciated ABD: Soft, nontender nondistended EXT: No peripheral edema appreciated A/P: 72-year-old female initially admitted for respiratory distress who subsequently had NSTEMI and was recently transferred from ICU to the regular floor with a Halicat called for acute chest pain, nausea and vomiting. -EKG reviewed, ST depressions in the lateral leads but this is significantly improved from most recent EKG during this hospitalization -With recent cardiac history and patient's symptomatic improvement with nitroglycerin, will order further ACS rule out workup -Cardiac enzymes ordered, CMP, CBC, lactic acid ordered -Ordering nitroglycerin patch -Spoke with nursing staff about informing the primary team. May want to consider further anticoagulation pending ACS workup Jonah Vieyra Dr., MD R1 Oct 16, 2017 19:41
[2017-10-16] MEDS ORDERED: MORPHINE SULFATE 4 MG/ML INJ IV PRN (20:00)
[2017-10-16] MEDS ORDERED: NITROGLYCERIN 2% OINT 1 GM PACKET TOP SCH (20:00)
[2017-10-16 20:58] LABS: BASOPHIL % 0.2 % (0.0-2.0); EOSINOPHIL % 0.1 % (0.0-4.0); HEMATOCRIT 44.5 % (35.0-46.0); HEMOGLOBIN 14.8 GM/DL (11.6-15.3); LYMPH % 9.1 % (9.0-44.0); LYMPHOCYTE # 1.4 TH/MM3 (1.0-4.8); MEAN CELL VOLUME 83.8 FL (80.0-100.0); MEAN CORPUSCULAR HEMOGLOBIN 27.9 PG (27.0-34.0); MEAN CORPUSCULAR HGB CONC 33.3 % (32.0-36.0); MEAN PLATELET VOLUME 7.4 FL (7.0-11.0); MONO % 6.3 % (0.0-8.0); NEUT % 84.3 % (16.0-70.0); PLATELET COUNT 286 TH/MM3 (150-450); RED BLOOD COUNT 5.31 MIL/MM3 (4.00-5.30); RED CELL DISTRIBUTION WIDTH 14.4 % (11.6-17.2); WHITE BLOOD COUNT 15.4 TH/MM3 (4.0-11.0)
[2017-10-16 21:12] LABS: ALBUMIN 3.2 GM/DL (3.4-5.0); AST (GOT) 14 U/L (15-37); BICARBONATE 34.8 MEQ/L (21.0-32.0); BLOOD UREA NITROGEN 22 MG/DL (7-18); CALCIUM 8.8 MG/DL (8.5-10.1); CHLORIDE 95 MEQ/L (98-107); CREATININE 1.02 MG/DL (0.50-1.00); GLOMERULAR FILTRATION RATE 53 ML/MIN (>89); GLUCOSE,RANDOM 179 MG/DL (74-106); SODIUM (NA) 138 MEQ/L (136-145)
[2017-10-16 21:16] LABS: ALKALINE PHOSPHATASE 92 U/L (45-117); ALT (GPT) 24 U/L (10-53); TOTAL BILIRUBIN ADULT 0.5 MG/DL (0.2-1.0)
[2017-10-16] MEDS: ATORVASTATIN 10 MG TAB PO SCH (21:17)
[2017-10-16 21:21] LABS: TROPONIN I 1.82 NG/ML (0.02-0.05)
[2017-10-17] VITALS (13 sets, daily range): BP systolic 94–121; BP diastolic 53–65; PULSE 58–78; RESP 16–20; TEMP 97.8–98.6; O2SAT 94–97
[2017-10-17] MEDS: CHLORHEXIDINE GLUCONATE 2 % 1 PACK (2 CLOTHS) TOP SCH (03:37)
[2017-10-17] MEDS: MORPHINE SULFATE 60 MG CONTROLLED RELEASE TAB PO SCH ×3 (05:26→21:35)
[2017-10-17 06:26] LABS: HEMATOCRIT 42.9 % (35.0-46.0); HEMOGLOBIN 14.1 GM/DL (11.6-15.3); MEAN CELL VOLUME 83.8 FL (80.0-100.0); MEAN CORPUSCULAR HEMOGLOBIN 27.6 PG (27.0-34.0); MEAN CORPUSCULAR HGB CONC 32.9 % (32.0-36.0); MEAN PLATELET VOLUME 7.7 FL (7.0-11.0); PLATELET COUNT 287 TH/MM3 (150-450); RED BLOOD COUNT 5.12 MIL/MM3 (4.00-5.30); RED CELL DISTRIBUTION WIDTH 14.3 % (11.6-17.2); WHITE BLOOD COUNT 14.5 TH/MM3 (4.0-11.0)
[2017-10-17] MEDS: ISOSORBIDE MONONITRATE 60 MG CR TAB (IMDUR) PO SCH ×2 (06:49→21:39)
[2017-10-17] MEDS: INSULIN ASPART SUPPLEMENTAL SCALE SQ SCH ×4 (08:00→21:51)
[2017-10-17] MEDS: ARTIFICIAL TEARS OPTH SOLN 15 ML BTL EACH EYE SCH ×3 (09:00→17:53)
[2017-10-17] MEDS: DOCUSATE SODIUM 50 MG/SENNA 8.6 MG TAB PO SCH ×2 (10:17→21:00)
[2017-10-17] MEDS: guaiFENesin E.R. 600 MG TAB PO SCH ×2 (10:17→21:34)
[2017-10-17] MEDS: FAMOTIDINE 20 MG TAB PO SCH (10:17)
[2017-10-17] MEDS: FUROSEMIDE 40 MG TAB PO SCH ×2 (10:17→17:53)
[2017-10-17] MEDS: SODIUM CHLORIDE 0.9% FLUSH 10 ML FLUSH IV FLUSH SCH ×2 (10:18→21:36)
[2017-10-17] MEDS: ASPIRIN 81 MG CHEW TAB CHEW SCH (10:18)
[2017-10-17] MEDS: TIOTROPIUM BROMIDE 18 MCG INH INH SCH (10:18)
[2017-10-17] MEDS: methylPREDNISolone SOD SUCC 40 MG/1 ML VIAL IV PUSH SCH ×2 (10:19→21:34)
[2017-10-17] MEDS ORDERED: PANTOPRAZOLE SOD 40 MG DELAYED RELEASE TAB PO ONE (10:45)
[2017-10-17] MEDS: RANOLAZINE 500 MG EXTENDED RELEASE TAB PO SCH ×2 (11:43→21:34)
--- NOTE | 2017-10-17 12:51 | PD.CONS ---
HPI History of Present Illness This is a 72 year old F with PMH significant for DM, COPD, CAD, HTN, hypothyroidism, who presented to the ER on October 07 for shortness of breath not improved after multiple nebulizer treatments at home, she was intubated in the ER and transferred to ICU, has since been extubated and is currently on 2 L NC. During her admission she was found to have a NSTEMI with troponin greater than 40, she underwent a cardiac cath on 10/10 which revealed only 3 out of 5 grafts patent, left main artery shows 99% stenosis and heavily calcified, cardiology noted that pt is too high risk for intervention, medical management recommended. Our service has been consulted to evaluate pt for reports of epigastric burning and reports of vomiting bile after meals. She denies any GI complaints prior to admission, states symptoms began after admission. Denies nausea, vomiting except for after meals. Pain in epigastric area, intermittent, also related to meals. Denies constipation, diarrhea, blood in stool. Last EGD was approximately 5-6 years ago and she can not remember the results. Has never had colonoscopy before. Denies ETOH, Smokes a pack and a half a day but has not smoked in 3 weeks. Denies illicit drugs, NSAIDs. (Tasia Navarro) PFSH Past Medical History DM COPD CAD HTN Hypothyroidism Past Surgical History CABG x 5 Appendectomy Cholecystectomy Thyroid surgery Dental implants (Tasia Navarro) Coded Allergies: penicillin G (Unverified Allergy, Severe, Anaphylaxis, 10/07/17) Social History Denies ETOH Smokes a pack and a half of cigarettes a day- has not smoked in 3 weeks Denies illicit drug use (Tasia Navarro) Review of Systems Gastrointestinal: COMPLAINS OF: Abdominal pain (epigastric ), Nausea, Vomiting , Heartburn, DENIES: Black stools, Bloody stools, Constipation, Diarrhea, Difficulty Swallowing, Odynophagia, Swelling of Abdomen, Hematemesis (Tasia Navarro) GI Exam Vitals I&O Vital Signs Date Time Temp Pulse Resp B/P (MAP) Pulse Ox O2 Delivery O2 Flow Rate FiO2 10/17/17 08:50 98.3 66 18 106/64 (78) 94 10/17/17 08:00 58 10/17/17 06:32 18 10/17/17 04:25 98.2 63 16 121/65 (83) 94 10/17/17 04:14 71 10/16/17 23:56 82 10/16/17 23:55 98.2 80 16 99/56 (70) 95 10/16/17 21:00 Nasal Cannula 2.00 10/16/17 20:55 98.3 67 16 107/53 (71) 94 10/16/17 19:51 74 10/16/17 19:14 81 138/82 (100) 96 10/16/17 19:05 74 20 197/93 (127) 94 10/16/17 18:06 98.2 82 18 112/72 (85) 96 10/16/17 17:32 97 Nasal Cannula 2.00 10/16/17 16:00 88 10/16/17 16:00 Nasal Cannula 3.00 I/O 10/16/17 10/16/17 10/16/17 10/17/17 10/17/17 10/17/17 07:00 15:00 23:00 07:00 15:00 23:00 Intake Total 440 ml 240 ml Output Total 1500 ml 1100 ml Balance -1500 ml 440 ml -860 ml Intake Oral 440 ml 240 ml Output Urine Total 1500 ml 1100 ml # Voids 3 # Bowel Movements 1 2 Imaging Last Impressions Chest X-Ray 10/10/17 0000 Signed Impressions: CONCLUSION: 1. Interval removal of the endotracheal and nasogastric tubes. 2. Chronic interstitial changes within the pulmonary parenchyma. 3. The appearance of the parenchyma similar to the prior. Abdomen X-Ray 10/08/17 0000 Signed Impressions: CONCLUSION: Tip of the NG tube inside the stomach. Laboratory Test 10/16/17 20:26 10/17/17 04:00 White Blood Count 15.4 TH/MM3 14.5 TH/MM3 Red Blood Count 5.31 MIL/MM3 5.12 MIL/MM3 Hemoglobin 14.8 GM/DL 14.1 GM/DL Hematocrit 44.5 % 42.9 % Mean Corpuscular Volume 83.8 FL 83.8 FL Mean Corpuscular Hemoglobin 27.9 PG 27.6 PG Mean Corpuscular Hemoglobin Concent 33.3 % 32.9 % Red Cell Distribution Width 14.4 % 14.3 % Platelet Count 286 TH/MM3 287 TH/MM3 Mean Platelet Volume 7.4 FL 7.7 FL Neutrophils (%) (Auto) 84.3 % Lymphocytes (%) (Auto) 9.1 % Monocytes (%) (Auto) 6.3 % Eosinophils (%) (Auto) 0.1 % Basophils (%) (Auto) 0.2 % Neutrophils # (Auto) 13.0 TH/MM3 Lymphocytes # (Auto) 1.4 TH/MM3 Monocytes # (Auto) 1.0 TH/MM3 Eosinophils # (Auto) 0.0 TH/MM3 Basophils # (Auto) 0.0 TH/MM3 CBC Comment DIFF FINAL Differential Comment Blood Urea Nitrogen 22 MG/DL Creatinine 1.02 MG/DL Random Glucose 179 MG/DL Total Protein 6.0 GM/DL Albumin 3.2 GM/DL Calcium Level 8.8 MG/DL Alkaline Phosphatase 92 U/L Aspartate Amino Transf (AST/SGOT) 14 U/L Alanine Aminotransferase (ALT/SGPT) 24 U/L Total Bilirubin 0.5 MG/DL Sodium Level 138 MEQ/L Potassium Level 4.0 MEQ/L Chloride Level 95 MEQ/L Carbon Dioxide Level 34.8 MEQ/L Anion Gap 8 MEQ/L Estimat Glomerular Filtration Rate 53 ML/MIN Lactic Acid Level 1.9 mmol/L Total Creatine Kinase 57 U/L Troponin I 1.82 NG/ML Date/Time Source Procedure Growth Status 10/07/17 20:39 Blood Peripheral Aerobic Blood Culture - Final NO GROWTH IN 5 DAYS Complete 10/07/17 20:39 Blood Peripheral Anaerobic Blood Culture - Final NO GROWTH IN 5 DAYS Complete 10/07/17 23:20 Nasal Washing Influenza Types A,B Antigen (TAM) - Final NEGATIVE FOR FLU A AND B ANTIGEN.... Complete 10/07/17 20:20 Urine Catheterized Urine Legionella Antigen - Final PRESUMPTIVE NEGATIVE FOR LEGIONELLA P... Complete 10/07/17 20:20 Urine Catheterized Urine Streptococcus pneumoniae Antigen (M - Final PRESUMPTIVE NEGATIVE FOR STREPTOCOCCU... Complete Physical Examination HEENT: Normocephalic; atraumatic CHEST: Even/unlabored CARDIAC: RRR ABDOMEN: Soft, nondistended, nontender; bowel sounds active SKIN: Normal; no rash; no jaundice. [employer]: Alert and oriented times three. (Tasia Navarro) Assessment and Plan Plan Assessment: - Epigastric pain, acid reflux, nausea and vomiting after meals Pt denies any GI symptoms prior to admission. Symptoms began after admission, states epigastric pain, intermittent, after PO intake. Also complaining of acid reflux, has not needed medication for this at home. Reports nausea and vomiting after meals. Denies hematemesis and coffee ground emesis. Last EGD was 5-6 years ago and pt can not recall findings. History of cholecystectomy - SOB on admission, intubation S/P extubation on 10/10 - NSTEMI with troponin greater than 40, she underwent a cardiac cath on 10/10 which revealed only 3 out of 5 grafts patent, left main artery shows 99% stenosis and heavily calcified, cardiology noted that pt is too high risk for intervention, medical management recommended. Rene was called last night for continued reports of chest pain Plan: Pt too unstable to EGD at this time Recommend optimizing medical management for possible stress ulcer Carafate, Protonix, Pepcid at bedtime Abdominal US Further recommendations based on findings of above and clinical course Pt has been seen and examined by myself and Dr. Shepherd and this note is written on his behalf (Tasia Navarro) Physician Comments Seen and examined, plan as above. Will follow up with you until more stable. Thank you for the consult. (Silvino Shepherd MD) Tasia Navarro Oct 17, 2017 12:51 Silvino Shepherd MD Oct 17, 2017 13:30
[2017-10-17] MEDS: LEVOFLOXACIN 500 MG PREMIX INJ 100 ML IV SCH (16:25)
[2017-10-17] MEDS: SUCRALFATE 1 GM/10 ML CUP PO SCH ×2 (16:26→21:39)
[2017-10-17] MEDS: ENOXAPARIN SODIUM 40 MG/0.4 ML SYRINGE SQ SCH (16:26)
--- NOTE | 2017-10-17 16:27 | HHI.PR ---
Subjective Remarks Patient complains of epigastric pain, vomiting with bilious fluid. Objective Vitals Vital Signs Date Time Temp Pulse Resp B/P (MAP) Pulse Ox O2 Delivery O2 Flow Rate FiO2 10/17/17 14:23 96 Nasal Cannula 2.00 10/17/17 12:35 97.8 60 18 109/64 (79) 94 10/17/17 08:50 98.3 66 18 106/64 (78) 94 10/17/17 08:00 58 10/17/17 06:32 18 10/17/17 04:25 98.2 63 16 121/65 (83) 94 10/17/17 04:14 71 10/16/17 23:56 82 10/16/17 23:55 98.2 80 16 99/56 (70) 95 10/16/17 21:00 Nasal Cannula 2.00 10/16/17 20:55 98.3 67 16 107/53 (71) 94 10/16/17 19:51 74 10/16/17 19:14 81 138/82 (100) 96 10/16/17 19:05 74 20 197/93 (127) 94 10/16/17 18:06 98.2 82 18 112/72 (85) 96 10/16/17 17:32 97 Nasal Cannula 2.00 I/O 10/16/17 10/16/17 10/16/17 10/17/17 10/17/17 10/17/17 07:00 15:00 23:00 07:00 15:00 23:00 Intake Total 440 ml 240 ml Output Total 1500 ml 1100 ml Balance -1500 ml 440 ml -860 ml Intake Oral 440 ml 240 ml Output Urine Total 1500 ml 1100 ml # Voids 3 # Bowel Movements 1 2 Result Diagram: 10/17/17 0400 10/16/172025 Objective Remarks GENERAL: Well-nourished, well-developed patient. SKIN: Warm and dry. HEAD: Normocephalic. EYES: No scleral icterus. No injection or drainage. NECK: Supple, trachea midline. No JVD or lymphadenopathy. CARDIOVASCULAR: Regular rate and rhythm without murmurs, gallops, or rubs. RESPIRATORY: Breath sounds equal bilaterally, mild atelectasis in bases. No accessory muscle use. GASTROINTESTINAL: Abdomen soft, non-tender, nondistended. Normal active bowel sounds EXTREMITIES: No cyanosis, or edema. NEUROLOGICAL: Awake, alert, and oriented x 3. Non-focal. Procedures 10/10/2017 INDICATION: Non-ST elevation myocardial infarction. PROCEDURES PERFORMED: 1. Fluoroscopy with interpretation. 2. Coronary angiography. 3. Left heart catheterization. 4. Coronary artery bypass graft angiography. METHOD: Risks, benefits and alternatives discussed with the patient. The patient understood and consented to the procedure. The patient brought into the catheterization lab, and placed on the catheterization table. The right groin prepped and draped in a sterile fashion. The right groin was anesthetized with 2% lidocaine. The right common femoral artery was cannulated. A 5-Estonian 11 cm sheath was placed without difficulty. CORONARY ANGIOGRAPHY: 1. Left main coronary artery appears to be 99% stenosed with heavy calcium present. 2. Proximal left anterior descending coronary artery is subtotally occluded, but does give rise to a moderate-sized first diagonal branch which is fed antegrade from the [place] coronary. The left anterior descending coronary is then occluded just beyond the takeoff of its diagonal branch. 3. Left circumflex is subtotally occluded. It has an occluded first obtuse marginal branch and the remainder of the circumflex is a small caliber size. 4. Right coronary artery is occluded in the proximal to mid segment and collateralized from [id number] collaterals. CORONARY BYPASS GRAFT ANGIOGRAPHY: 1. Left internal mammary to the left anterior descending coronary artery is widely patent. It does backfill to the septal perforators. Moderate diffuse disease throughout. 2. Saphenous vein graft to the diagonal branch has 2 tandem 50 percent stenoses present. Diagonal branch is small in caliber size. This is diagonal branch #2. 3. Saphenous vein graft to the obtuse marginal branch is widely patent. There are mild luminal irregularities. 4. The saphenous vein graft to the right coronary artery is occluded. 5. The jump graft from the posterior descending to the posterolateral branch is occluded. LEFT HEART CATHETERIZATION: Intraventricular hemodynamics measured 114/23 mmHg with a left ventricular end-diastolic pressure of 33 mmHg. CONCLUSIONS: 1. Severe 3-vessel [place] coronary artery disease. 2. Three of five coronary bypass grafts are patent. 3. Elevated left-sided filling pressures. PLAN: Saphenous vein graft to the right coronary and jump graft are occluded, but well collateralized and unlikely to be the culprit. The other grafts appear patent. The diagonal graft does have moderate disease, but would not be causing resting symptoms. The first diagonal branch is fed through the [place] coronary system within a 99% occluded left main which could be a very high risk intervention. At this point, I think it would be best to attempt aggressive medical management. We will initiate long-acting nitrate in addition or ranolazine. Her left ventricular end-diastolic pressure is also elevated, so we will increase her Lasix to twice daily. --- Status post vent and intubation A/P Problem List: (1) NSTEMI (non-ST elevated myocardial infarction) ICD Code: I21.4 - Non-ST elevation (NSTEMI) myocardial infarction (2) COPD exacerbation ICD Code: J44.1 - Chronic obstructive pulmonary disease with (acute) exacerbation (3) DM (diabetes mellitus) ICD Code: E11.9 - Type 2 diabetes mellitus without complications Status: Chronic Assessment and Plan 72-year-old female who presented with respiratory distress and chest pain Nausea and vomiting, abdominal pain Although patient came in with AL, part of her chest pain may have been caused by these GI issues She reports vomiting bilious fluids and has pain at time of vomiting She has never been worked up for this in the past, only takes Pepcid home dose Ultrasound of the abdomen pending GI added Carafate and Pepcid at bedtime to current Protonix order EGD recommended when patient is more stable from a cardiac standpoint Appreciate gastroenterology consult Acute NSTEMI Patient was distended on arrival but had another episode of chest pain with another increase in her troponins. s/p LHC which revealed only 3 out of 5 grafts patent Left main artery shows 99% stenosis, heavily calcified She is too high risk for intervention, medical management recommended Continue Imdur and Ranexa, ASA, Lipitor, Lopressor...Nitroglycerin as needed Cardiology signed off COPD exacerbation Continue Spiriva and DuoNeb's Currently off of oxygen breathing comfortably on room air Atrial fibrillation with RVR Converted with amiodarone while in the ICU Patient is currently sinus rhythm Follow on telemetry Infectious disease Sputum cultures from 527 show Haemophilus influenza IV Levaquin is completed DVT prophylaxis Lovenox Discharge Planning Patient is stable for discharge once basic GI workup is completed Bowen Morales MD Oct 17, 2017 16:27
--- NOTE | 2017-10-17 17:13 | RADRPT ---
EXAM DATE: 10/17/2017 5:00 PM EDT AGE/SEX: 72 years / Female INDICATIONS: Epigastric pain. Vomiting. CLINICAL DATA: This is the patient's initial encounter. Patient reports that signs and symptoms have been present for 2 days and indicates a pain score of 3/10. MEDICAL/SURGICAL HISTORY: Hypercholesterolemia. Chronic obstructive pulmonary disease. Emphys dillan. Hypertensin. Pneumonia. Hiatal hernia. Diabetes. Acute respiratory failure on mechanical ventil ation. CABG. Appendectomy. Cholecystectomy. Cardiac catheterization. COMPARISON: [facility] [place], CT ABDOMEN W/O CONTRAST, 11/11/2015. . MEASUREMENTS: Liver:__ 16.5 cm. Common Bile Duct:___ 10mm. Right Kidney:___11.5 x 5.4 x 4.0 cm . Left Kidney:___11.3 x 5.8 x 6.6 cm . Spleen:___8.2 . Aorta: The proximal portion measures 2.3 cm maximal. FINDINGS: Liver: Coarse echotexture suggesting fatty change or diffuse hepatocellular process. Portal Vein: Hepatopedal flow seen in portal vein. Common Duct: No intraluminal mass or stone visualized. Gallbladder: Surgically Absent. Pancreas: The visualized portions are within normal limits Right Kidney: There is no hydronephrosis or definite renal mass, however there is an approximate 1.5 cm nodule in the region of the right adrenal gland may be an adrenal adenoma. Left Kidney: No mass or hydronephrosis. Ascites: None Pleural Effusion: None Spleen: No focal lesion. Aorta: Non aneurysmal. IVC: Within normal limits CONCLUSION: 1. The liver is diffusely fatty without focal lesions for technique. 2. Probable right adrenal adenoma present on the prior CT examination from 2016 not significantly ch anged. 3. The common bile duct measures 1 cm without any significant intrahepatic ductal dilatation most li matthew from post cholecystectomy reservoir changes. Electronically signed by: Rick Giraldo MD 10/17/2017 5:12 PM EDT
--- NOTE | 2017-10-17 19:12 | EKG ---
Date Performed: 10/16/2017 Time Performed: 19:08:50 PTAGE: 72 years EKG: Sinus rhythm with aberrantly conducted supraventricular complexes with PVC(s). Cannot rule out anteroseptal infar ct - age undetermined Left ventricular hypertrophy Inferior/lateral ST-T changes are probably due to ventricular hypertrophy Abnormal ECG Compared to PREVIOUS TRACING , a fib and LBBB no longer present DOCTOR: Nilson Cummins Interpretating Date/Time 10/17/2017 19:11:49
[2017-10-17] MEDS ORDERED: FAMOTIDINE 20 MG TAB PO SCH (21:00)
[2017-10-17] MEDS: ATORVASTATIN 10 MG TAB PO SCH (21:36)
[2017-10-17] MEDS: PANTOPRAZOLE SOD 40 MG DELAYED RELEASE TAB PO SCH (21:36)
[2017-10-18 00:02] VITALS: PULSE 59
[2017-10-18 03:20] VITALS: BP 120/68; PULSE 68; RESP 16; TEMP 98.5; O2SAT 96
[2017-10-18] MEDS: CHLORHEXIDINE GLUCONATE 2 % 1 PACK (2 CLOTHS) TOP SCH (03:34)
[2017-10-18 04:02] VITALS: PULSE 69
[2017-10-18] MEDS: MORPHINE SULFATE 60 MG CONTROLLED RELEASE TAB PO SCH ×2 (05:35→13:07)
[2017-10-18] MEDS: ISOSORBIDE MONONITRATE 60 MG CR TAB (IMDUR) PO SCH (05:38)
[2017-10-18 08:00] VITALS: BP 99/58; PULSE 67; PULSE 74; RESP 22; TEMP 98.4; O2SAT 94
[2017-10-18] MEDS: ASPIRIN 81 MG CHEW TAB CHEW SCH (08:52)
[2017-10-18] MEDS: SUCRALFATE 1 GM/10 ML CUP PO SCH ×2 (08:52→13:07)
[2017-10-18] MEDS: RANOLAZINE 500 MG EXTENDED RELEASE TAB PO SCH (08:52)
[2017-10-18] MEDS: methylPREDNISolone SOD SUCC 40 MG/1 ML VIAL IV PUSH SCH (08:52)
[2017-10-18] MEDS: FUROSEMIDE 40 MG TAB PO SCH (08:53)
[2017-10-18] MEDS: guaiFENesin E.R. 600 MG TAB PO SCH (08:53)
[2017-10-18] MEDS: DOCUSATE SODIUM 50 MG/SENNA 8.6 MG TAB PO SCH (08:53)
[2017-10-18] MEDS: PANTOPRAZOLE SOD 40 MG DELAYED RELEASE TAB PO SCH (08:53)
[2017-10-18] MEDS: TIOTROPIUM BROMIDE 18 MCG INH INH SCH (08:53)
[2017-10-18] MEDS: SODIUM CHLORIDE 0.9% FLUSH 10 ML FLUSH IV FLUSH SCH (08:53)
[2017-10-18] MEDS: ARTIFICIAL TEARS OPTH SOLN 15 ML BTL EACH EYE SCH ×2 (08:54→13:00)
[2017-10-18] MEDS: INSULIN ASPART SUPPLEMENTAL SCALE SQ SCH ×2 (08:54→13:07)
[2017-10-18 12:00] VITALS: BP 99/60; PULSE 69; PULSE 86; RESP 21; TEMP 98.6; O2SAT 95
[2017-10-18] MEDS ORDERED: SUCR1S PO (12:22)
[2017-10-18] MEDS ORDERED: FAMO20TA2 PO (12:22)
[2017-10-18] MEDS ORDERED: PANT40TA3 PO (12:22)
--- NOTE | 2017-10-18 12:26 | HHI.DS ---
Discharge Summary Admission Date October 07, 2017 at 20:56 Discharge Date: Oct 18, 2017 Admitting Diagnosis RESPIRATORY FAILURE S/P INTUBATION, COPD EXAC (1) NSTEMI (non-ST elevated myocardial infarction) ICD Code: I21.4 - Non-ST elevation (NSTEMI) myocardial infarction (2) COPD exacerbation ICD Code: J44.1 - Chronic obstructive pulmonary disease with (acute) exacerbation (3) DM (diabetes mellitus) ICD Code: E11.9 - Type 2 diabetes mellitus without complications Status: Chronic Procedures 10/10/2017 INDICATION: Non-ST elevation myocardial infarction. PROCEDURES PERFORMED: 1. Fluoroscopy with interpretation. 2. Coronary angiography. 3. Left heart catheterization. 4. Coronary artery bypass graft angiography. METHOD: Risks, benefits and alternatives discussed with the patient. The patient understood and consented to the procedure. The patient brought into the catheterization lab, and placed on the catheterization table. The right groin prepped and draped in a sterile fashion. The right groin was anesthetized with 2% lidocaine. The right common femoral artery was cannulated. A 5-Belarusian 11 cm sheath was placed without difficulty. CORONARY ANGIOGRAPHY: 1. Left main coronary artery appears to be 99% stenosed with heavy calcium present. 2. Proximal left anterior descending coronary artery is subtotally occluded, but does give rise to a moderate-sized first diagonal branch which is fed antegrade from the [place] coronary. The left anterior descending coronary is then occluded just beyond the takeoff of its diagonal branch. 3. Left circumflex is subtotally occluded. It has an occluded first obtuse marginal branch and the remainder of the circumflex is a small caliber size. 4. Right coronary artery is occluded in the proximal to mid segment and collateralized from [id number] collaterals. CORONARY BYPASS GRAFT ANGIOGRAPHY: 1. Left internal mammary to the left anterior descending coronary artery is widely patent. It does backfill to the septal perforators. Moderate diffuse disease throughout. 2. Saphenous vein graft to the diagonal branch has 2 tandem 50 percent stenoses present. Diagonal branch is small in caliber size. This is diagonal branch #2. 3. Saphenous vein graft to the obtuse marginal branch is widely patent. There are mild luminal irregularities. 4. The saphenous vein graft to the right coronary artery is occluded. 5. The jump graft from the posterior descending to the posterolateral branch is occluded. LEFT HEART CATHETERIZATION: Intraventricular hemodynamics measured 114/23 mmHg with a left ventricular end-diastolic pressure of 33 mmHg. CONCLUSIONS: 1. Severe 3-vessel [place] coronary artery disease. 2. Three of five coronary bypass grafts are patent. 3. Elevated left-sided filling pressures. PLAN: Saphenous vein graft to the right coronary and jump graft are occluded, but well collateralized and unlikely to be the culprit. The other grafts appear patent. The diagonal graft does have moderate disease, but would not be causing resting symptoms. The first diagonal branch is fed through the [place] coronary system within a 99% occluded left main which could be a very high risk intervention. At this point, I think it would be best to attempt aggressive medical management. We will initiate long-acting nitrate in addition or ranolazine. Her left ventricular end-diastolic pressure is also elevated, so we will increase her Lasix to twice daily. --- Status post vent and intubation Brief History - From Admission HPI 72-year-old female who was rushed in by private vehicle, family member brought her in complaining of severe shortness of breath, not improved by her own home nebulizers, or her home oxygen. Per family member this started about 30-45 minutes prior to arrival and had a sudden onset of severity. According to family she was not complaining of any chest pain or anything along those lines.... However she had been short of breath more than usual over the past 2 days... unable to obtain any further history due to the severity of condition per patient conversation with the ER physician PCP is Dr. Davison Past medical history significant for dental implants, hypertension, 5 vessel CABG bypass, MS 3, hypercholesterolemia, hypertension, COPD oxygen dependent, pneumonia, sleep apnea, hiatal hernia, appendectomy, cholecystectomy, hypothyroidism, diabetes and currently smokes 1 pack a day. Patient developed worsening respiratory distress following arrival in the ER and was emergently intubated and placed on mechanical ventilation. She had a central line placed by ER physician at [place]. Her repeat troponin came back greater than 40. Patient was transferred to [facility] ICU and cardiology consult was requested. When I evaluated patient following arrival to the ICU she was sedated with propofol, orally intubated on mechanical ventilation on a nicardipine drip for elevated blood pressure. She had been started on heparin for anticoagulation in view of acute MS. PFSH Past Medical History Hx Anticoagulant Therapy: Yes Arthritis: Yes Asthma: No Autoimmune Disease: No Blood Disorders: No Heart Rhythm Problems: No Cancer: No Cardiac Catheterization: Yes Cardiovascular Problems: Yes (htn on meds, 5 vessel bypass, [place] x 3) High Cholesterol: Yes Chest Pain: Yes Congestive Heart Failure: No COPD: Yes Coronary Artery Disease: Yes Diabetes: Yes Diminished Hearing: No Endocrine: Yes Gastrointestinal Disorders: No Genitourinary: No Hiatal Hernia: Yes Hypertension: Yes Immune Disorder: No Implanted Vascular Access Dvce: Yes Musculoskeletal: Yes (osteoporosis) Neurologic: No Psychiatric: No Reproductive: No Respiratory: Yes (copd on oxygen) Pneumonia: Yes Sleep Apnea: No Thyroid Disease: No Menopausal: Yes Past Surgical History Abdominal Surgery: Yes (appendectomy, cholecystectomy) Appendectomy: Yes Body Medical Devices: sternal wires from cabg Cardiac Surgery: Yes (5 WAY BIPASS) Cholecystectomy: Yes Coronary Artery Bypass Graft: Yes (X5) Ear Surgery: No Endocrine Surgery: Yes (THYROID) Eye Surgery: No Genitourinary Surgery: No Gynecologic Surgery: Yes (x2 regular ) Neurologic Surgery: No Oral Surgery: Yes (lower dental implants) Thoracic Surgery: Yes Other Surgery: Yes Social History Alcohol Use: No Tobacco Use: Yes (1 PPD) Substance Use: No Allergies-Medications (Allergen,Severity, Reaction): Coded Allergies: penicillin G (Unverified Allergy, Severe, Anaphylaxis, 06/03/17) Reported Meds & Prescriptions Reported Meds & Active Scripts Active Prednisone 20 Mg Tab 60 Mg PO DAILY 5 Days Reported Percocet (Oxycodone-Acetaminophen) 10-325 mg Tab 1 Tab PO Q6H PRN Morphine ER (Morphine Sulfate) 60 Mg Tab 60 Mg PO Q8H Azithromycin 250 Mg Tab 250 Mg PO DIRECTED Take 2 tabs (500 mg) on day 1 then 1 tab daily x 4 days. Aspirin 81 Mg Chew 81 Mg CHEW DAILY Atorvastatin (Atorvastatin Calcium) 10 Mg Tab 10 Mg PO HS Spiriva Respimat Inh (Tiotropium Inh) 2.5 Mcg/Act Aero 2 Puff INH DAILY 2.5 mcg = 1 inhalation Potassium Chloride ER (Potassium Chloride) 20 Meq Tab 20 Meq PO DAILY Amlodipine (Amlodipine Besylate) 5 Mg Tab 5 Mg PO DAILY Metoprolol Succinate ER 24 HR (Metoprolol Succinate) 25 Mg Tab 25 Mg PO DAILY CBC/BMP: 10/17/17 0400 10/16/172025 Significant Findings Laboratory Tests Test 10/16/17 20:26 10/17/17 04:00 White Blood Count 15.4 TH/MM3 (4.0-11.0) 14.5 TH/MM3 (4.0-11.0) Red Blood Count 5.31 MIL/MM3 (4.00-5.30) Neutrophils (%) (Auto) 84.3 % (16.0-70.0) Neutrophils # (Auto) 13.0 TH/MM3 (1.8-7.7) Monocytes # (Auto) 1.0 TH/MM3 (0-0.9) Blood Urea Nitrogen 22 MG/DL (7-18) Creatinine 1.02 MG/DL (0.50-1.00) Random Glucose 179 MG/DL (74-106) Total Protein 6.0 GM/DL (6.4-8.2) Albumin 3.2 GM/DL (3.4-5.0) Aspartate Amino Transf (AST/SGOT) 14 U/L (15-37) Chloride Level 95 MEQ/L (98-107) Carbon Dioxide Level 34.8 MEQ/L (21.0-32.0) Estimat Glomerular Filtration Rate 53 ML/MIN (>89) Troponin I 1.82 NG/ML (0.02-0.05) PE at Discharge GENERAL: Well-nourished, well-developed patient. SKIN: Warm and dry. HEAD: Normocephalic. EYES: No scleral icterus. No injection or drainage. NECK: Supple, trachea midline. No JVD or lymphadenopathy. CARDIOVASCULAR: Regular rate and rhythm without murmurs, gallops, or rubs. RESPIRATORY: Breath sounds equal bilaterally, mild atelectasis in bases. No accessory muscle use. GASTROINTESTINAL: Abdomen soft, non-tender, nondistended. Normal active bowel sounds EXTREMITIES: No cyanosis, or edema. NEUROLOGICAL: Awake, alert, and oriented x 3. Non-focal. Hospital Course Is a 72-year-old female who was admitted with non-ST elevation MS. She had a heart catheterization but treatment was limited and medical management was recommended at this time. I spoke with her at length about changing her diet drastically to predominate plant-based diet in order to reduce her cholesterol load. Additionally she had a COPD exacerbation on admission which was treated over time with standard therapy and has resolved at this point. The COPD exacerbation was likely the initiating triggered due to hypoxia cause heart attack. After transfer to medical floor she continued to have epigastric pain which she states was similar to her chest pain. This was associated with vomiting bilious fluid. Gastroenterology was consulted and feels she is rather high risk for a peptic ulcer. Due to her high cardiac risk on EGD is deferred at this time, but she is being treated with a combination of Protonix, Pepcid, Carafate. She is currently free from nausea or vomiting and her abdominal pain is much improved after 1 day of medicine. She is stable at this time for transfer to rehab where she will regain strength prior to going home. Pt Condition on Discharge: Stable Discharge Disposition: Discharge to SNF Discharge Time: <= 30 minutes Discharge Instructions DIET: Follow Instructions for: Heart Healthy Diet, Diabetic Diet Activities you can perform: Regular-No Restrictions Bowen Morales MD Oct 18, 2017 12:26
[2017-10-18] MEDS: ONDANSETRON HCL 4 MG/2 ML VIAL IV PUSH PRN (12:31)
[2017-10-18 14:01] VITALS: O2SAT 95
[2017-10-18] MEDS ORDERED: PROM25TA10 PO (14:46)
[2017-10-18] MEDS ORDERED: MORP1TAB26 PO (18:12)
[2017-10-18] MEDS ORDERED: PERC10TA27 PO (18:12)
== END 2017-10-18 16:04 | DRG 208 ==
LOC: PHED 19:02 → PHEDA 20:56 → PHICU 22:16 → HIMN 10-08 05:55 → N04B 10-14 19:14
PROVIDERS: ADMIT Family Medicine; ATTEND Family Medicine
PROC: 5A1945Z Respiratory Ventilation, 24-96 Consecutive Hours (ICD-10-PCS; principal; 2017-10-07)
PROC: 0BH17EZ Insertion of Endotracheal Airway into Trachea, Via Natural or Artificial Opening (ICD-10-PCS; 2017-10-07)
PROC: 05H633Z Insertion of Infusion Device into Left Subclavian Vein, Percutaneous Approach (ICD-10-PCS; 2017-10-07)
PROC: B2131ZZ Fluoroscopy of Multiple Coronary Artery Bypass Grafts using Low Osmolar Contrast (ICD-10-PCS; 2017-10-10)
PROC: 4A023N7 Measurement of Cardiac Sampling and Pressure, Left Heart, Percutaneous Approach (ICD-10-PCS; 2017-10-10)
PROC: B2111ZZ Fluoroscopy of Multiple Coronary Arteries using Low Osmolar Contrast (ICD-10-PCS; 2017-10-10)
PROC: B2181ZZ Fluoroscopy of Left Internal Mammary Bypass Graft using Low Osmolar Contrast (ICD-10-PCS; 2017-10-10)
DX: J96.01 Acute respiratory failure with hypoxia (principal); I21.4 Non-ST elevation (NSTEMI) myocardial infarction; J14 Pneumonia due to Hemophilus influenzae; E87.2 Acidosis; I95.9 Hypotension, unspecified; E11.65 Type 2 diabetes mellitus with hyperglycemia; J44.0 Chronic obstructive pulmonary disease with (acute) lower respiratory infection; I47.1 Supraventricular tachycardia; Z99.81 Dependence on supplemental oxygen; I48.91 Unspecified atrial fibrillation; J44.1 Chronic obstructive pulmonary disease with (acute) exacerbation; I25.810 Atherosclerosis of coronary artery bypass graft(s) without angina pectoris; G47.30 Sleep apnea, unspecified; E78.00 Pure hypercholesterolemia, unspecified; E03.9 Hypothyroidism, unspecified; I10 Essential (primary) hypertension; M19.90 Unspecified osteoarthritis, unspecified site; I25.10 Atherosclerotic heart disease of native coronary artery without angina pectoris; M81.0 Age-related osteoporosis without current pathological fracture; K21.9 Gastro-esophageal reflux disease without esophagitis; R11.2 Nausea with vomiting, unspecified; E87.6 Hypokalemia; T38.0X5A Adverse effect of glucocorticoids and synthetic analogues, initial encounter; Z95.1 Presence of aortocoronary bypass graft; I25.2 Old myocardial infarction; Z87.891 Personal history of nicotine dependence; Z79.82 Long term (current) use of aspirin
CPT/HCPCS: 31500; 36556; 36600; 71045; 74018; 76700; 80048; 80053; 81001; 82550; 82552; 82805; 82948; 83036; 83605; 83735; 83880; 84100; 84439; 84443; 84484; 85007; 85025; 85027; 85610; 85730; 87040; 87070; 87077; 87184; 87185; 87205; 87449; 87641; 87804; 93005; 93306; 93458; 94003; 94150; 94618; 94640; 94664; 96372; C1760; C1769; C1893; G0269; J0153; J0282; J0330; J0456; J0692; J1644; J1650; J1815; J1940; J1956; J2060; J2250; J2270; J2370; J2405; J2920; J2930; J3010; J3105; J3475; J3480; J7030; J7050; J7060; J7613; J7614; Q9967

== ENCOUNTER 2017-10-22 06:16 | Inpatient (IN) | payer MEDICARE, MEDICAID ==
[~2017-10-22] VITALS: Ht 165.1 cm; Wt 75.5 kg
[2017-10-22] VITALS (14 sets, daily range): BP systolic 85–117; BP diastolic 51–70; PULSE 52–62; RESP 16–18; TEMP 97.7–98.5; O2SAT 91–97
[~2017-10-22 06:16] MED LIST changes: -AZIT250T3 PO; +FAMO20TA2 PO; +FURO40TA PO; +ISOS60TA PO; +METF500T PO; +OXYGENDME NAS.CANULA; +PANT40TA3 PO; +PROM25TA10 PO; +RANO500 PO; +SUCR1S PO; +guaiFENesin ER PO
[2017-10-22] MEDS ORDERED: SODIUM CHLORIDE 0.9% FLUSH 10 ML FLUSH IVF PRN (06:45)
[2017-10-22] MEDS ORDERED: NITROGLYCERIN 2% OINT 1 GM PACKET TOP ONE (06:45)
[2017-10-22] MEDS ORDERED: GUAI600T34 (06:50)
--- NOTE | 2017-10-22 06:52 | PD ---
HPI Chief Complaint: Chest Pain Time Seen by Provider: 06:31 Travel History International Travel<30 days: No Contact w/Intl Traveler<30days: No Traveled to known affect area: No History of Present Illness HPI The patient is a 72 year old female who presents to the [facility] emergency department with a history of substernal chest pain that began suddenly prior to arrival. The patient reports that she had gotten up for her morning pain pill. She received her morning pain pill, morphine for her chronic low back pain, and then turned on the news. The patient reports that she then began to have chest pain. She reports that the pain radiated to bilateral shoulders. She reports that she had associated nausea and diaphoresis. She denies having any vomiting. She denies having any shortness of breath. When ambulance services arrived the patient was noted to be in A. fib with RVR. The patient was given aspirin 324 mg p.o. 1. The patient also received sublingual nitroglycerin 2. The patient initially had a pain that was 9 out of 10 in severity, however after nitroglycerin and aspirin, the patient converted to normal sinus rhythm again and had resolution of her pain. The patient reports that she has had 2 recent myocardial infarctions. She reports that she had a cardiac catheterization, however no stent was able to be placed as she was "too weak to have it done". 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 The patient reports having a history of coronary artery disease status post 5 vessel coronary artery bypass grafting in 1999. The patient reports having nausea and vomiting 1 in the more yesterday. She reports that she has been having some problems with this and was told that she would need endoscopy and colonoscopy, however again she was too weak to undergo this during her recent hospitalization. She reports that she last moved her bowels normally yesterday. She reports that otherwise she has been eating and drinking normally. On review of systems otherwise, the patient denies having any known recent fevers, worsening cough or congestion, neck pain, abdominal pain, diarrhea, urinary symptoms, or neurologic symptoms. [facility] Past Medical History Narrative Medical The patient's past medical history is significant for COPD chronically on 2 L nasal cannula O2 and her rehabilitation facility, hyperlipidemia, hypertension, diabetes mellitus, coronary artery disease status post 5 vessel coronary artery bypass grafting, history of myocardial infarction, history of congestive heart failure, history of atrial fibrillation Hx Anticoagulant Therapy: Yes Arthritis: Yes Asthma: No Autoimmune Disease: No Blood Disorders: No Heart Rhythm Problems: No Cancer: No Cardiac Catheterization: Yes Cardiovascular Problems: Yes (htn on meds, 5 vessel bypass, [place] x 3) High Cholesterol: Yes Chest Pain: Yes Congestive Heart Failure: No COPD: Yes Coronary Artery Disease: Yes Diabetes: Yes Patient Takes Glucophage: Yes Diminished Hearing: No Endocrine: Yes Gastrointestinal Disorders: No Genitourinary: No Hiatal Hernia: Yes Hypertension: Yes Immune Disorder: No Implanted Vascular Access Dvce: Yes Musculoskeletal: Yes (osteoporosis) Neurologic: No Psychiatric: No Reproductive: No Respiratory: Yes (COPD) Pneumonia: Yes Sleep Apnea: No Thyroid Disease: No Menopausal: Yes Past Surgical History Narrative Surgical The patient's past surgical history is significant for 5 vessel coronary artery bypass grafting, appendectomy, cholecystectomy, and thyroid surgery Abdominal Surgery: Yes (appendectomy, cholecystectomy) Appendectomy: Yes Body Medical Devices: sternal wires from cabg Cardiac Surgery: Yes (5 WAY BIPASS) Cholecystectomy: Yes Coronary Artery Bypass Graft: Yes (X5) Ear Surgery: No Endocrine Surgery: Yes (THYROID) Eye Surgery: No Genitourinary Surgery: No Gynecologic Surgery: Yes (x2 regular ) Neurologic Surgery: No Oral Surgery: Yes (lower dental implants) Thoracic Surgery: Yes Other Surgery: Yes Family History Family Myocardial Infarction: Yes Social History Alcohol Use: No Tobacco Use: No Substance Use: No Allergies-Medications (Allergen,Severity, Reaction): Coded Allergies: penicillin G (Unverified Allergy, Severe, Anaphylaxis, 10/07/17) Reported Meds & Prescriptions Reported Meds & Active Scripts Active Percocet (Oxycodone-Acetaminophen) 10-325 mg Tab 1 Tab PO Q6H PRN 30 Days Morphine ER (Morphine Sulfate) 60 Mg Tab 60 Mg PO Q8H 30 Days Phenergan (Promethazine HCl) 25 Mg Tablet 25 Mg PO Q6H PRN 5 Days Pantoprazole (Pantoprazole Sodium) 40 Mg Tab 40 Mg PO DAILYAC 30 Days Sucralfate Liq (Sucralfate) 1 Gram/10 Ml [place] 1 Gm PO ACHS 30 Days Famotidine 20 Mg Tab 20 Mg PO HS 30 Days Metformin (Metformin HCl) 500 Mg Tab 500 Mg PO BIDPC Oxygen (O2) Device Liter HARJEET.CANULA CONTINUOUS Oxygen Concentrator Portable Gaseous 2 L/min via Nasal Canula Continuous For 99 months Isosorbide Mononitrate ER (Isosorbide Mononitrate) 60 Mg Tab 60 Mg PO BID@0700, 2100 30 Days Prednisone 20 Mg Tab 20 Mg PO DIRECTED Take 40 MG daily x 3 days, then 20 MG x 3 days, then 10 MG daily x 3 days. [guaiFENesin ER] 600 MG Tabcr 600 Mg PO BID 7 Days Furosemide 40 Mg Tab 40 Mg PO BID@09,18 30 Days Ranexa ER 12 HR (Ranolazine) 500 Mg Tab 1,000 Mg PO Q12HR 30 Days Reported Aspirin 81 Mg Chew 81 Mg CHEW DAILY Atorvastatin (Atorvastatin Calcium) 10 Mg Tab 10 Mg PO HS Spiriva Respimat Inh (Tiotropium Inh) 2.5 Mcg/Act Aero 2 Puff INH DAILY 2.5 mcg = 1 inhalation Potassium Chloride ER (Potassium Chloride) 20 Meq Tab 20 Meq PO DAILY Amlodipine (Amlodipine Besylate) 5 Mg Tab 5 Mg PO DAILY Metoprolol Succinate ER 24 HR (Metoprolol Succinate) 25 Mg Tab 25 Mg PO DAILY Review of Systems Except as stated in HPI: all other systems reviewed are Neg General / Constitutional: No: Fever Eyes: No: Visual changes HENT: No: Headaches Cardiovascular: Positive: Diaphoresis, No: Chest Pain or Discomfort Respiratory: No: Shortness of Breath Gastrointestinal: Positive: Nausea, Vomiting, No: Diarrhea, Abdominal Pain Genitourinary: No: Dysuria Musculoskeletal: No: Pain Skin: No Rash Neurologic: No: Weakness, Focal Abnormalities, Change in Mentation, Slurred Speech, Sensory Disturbance Psychiatric: No: Depression Endocrine: No: Polydipsia Hematologic/Lymphatic: No: Easy Bruising Physical Exam Narrative General: The patient is a well-developed well-nourished female in no acute distress. Head and Neck exam: Head is normocephalic atraumatic. Eyes: EOMI, pupils are equal round and reactive to light. Nose: Midline septum with pink mucous membranes Mouth: Dentition unremarkable. Moist mucus membranes. Posterior oropharynx is not erythematous. No tonsillar hypertrophy. Uvula midline. Airway patent. Neck: No palpable lymphadenopathy. No nuchal rigidity. No thyromegaly. Cardiovascular: Regular rate and rhythm without murmurs, gallops, or rubs. No pulse deficit to the extremities on simultaneous auscultation and palpation of her radial artery. Lungs: Clear to auscultation bilaterally. No wheezes, rhonchi, or rales. Abdomen: Soft, without tenderness to palpation in all 4 quadrants of the abdomen. No guarding, rebound, or rigidity. Normal bowel sounds are audible. No tenderness on palpation of McBurney's point. Negative Downs sign. Extremities: No clubbing or cyanosis. The patient has trace pedal edema bilateral lower extremities. 2+ pulses in all 4 extremities. No calf tenderness on palpation. Back: No spinous process tenderness to palpation. No costovertebral angle tenderness to palpation. Neurologic Exam: Grossly nonfocal. Skin Exam: No rash noted. Intact skin that is warm and dry. Data Data Last Documented VS Vital Signs Date Time Temp Pulse Resp B/P (MAP) Pulse Ox O2 Delivery O2 Flow Rate FiO2 10/22/17:18 62 16 106/55 (72) 92 Orders Orders Electrocardiogram (10/22/17 06:31) B-Type Natriuretic Peptide (10/22/17 06:31) Ckmb (Isoenzyme) Profile (10/22/17 06:31) Complete Blood Count With Diff (10/22/17 06:31) Comprehensive Metabolic Panel (10/22/17 06:31) Magnesium (Mg) (10/22/17 06:31) Prothrombin Time / Inr (Pt) (10/22/17 06:31) Act Partial Throm Time (Ptt) (10/22/17 06:31) Troponin I (10/22/17 06:31) Lipase (10/22/17 06:31) Chest, Single Ap (10/22/17 06:31) Ecg Monitoring (10/22/17 06:31) Bilateral Bp Monitoring (10/22/17 06:31) Iv Access Insert/Monitor (10/22/17 06:31) Oximetry (10/22/17 06:31) Oxygen Administration (10/22/17 06:31) Nitroglycerin 2% Oint (Nitroglycerin 2% (10/22/17 06:45) Sodium Chloride 0.9% Flush (Ns Flush) (10/22/17 06:45) MDM Medical Decision Making Medical Screen Exam Complete: Yes Emergency Medical Condition: Yes Medical Record Reviewed: Yes Differential Diagnosis A. fib with RVR, versus acute coronary syndrome, versus congestive heart failure exacerbation Narrative Course During the course of the patient's emergency department visit, the patient's history, examination, and differential diagnosis were reviewed with the patient. The patient was placed on a teletypesetter monitor with oximetry and frequent blood pressure monitoring. The patient had IV access obtained and blood work sent for analysis. The patient had an EKG done on arrival that shows a sinus bradycardia heart rate of 59, QRS duration 99 ms, QTC 432 ms. The rhythm strips from [facility] were reviewed and the patient did have A. fib with RVR confirmed on the run strip with ST segment depression in multiple leads. The patient was initially provided nitroglycerin 1 inch to the chest wall. The patient was provided to sublingual nitroglycerin prior to arrival, aspirin 324 mg p.o. 1 prior to arrival by ambulance services per The patient's laboratory studies and imaging studies are pending at the conclusion of my shift. The patient's case will be checked out to the oncoming emergency physician to disposition the patient based on the conclusion of her workup. I anticipate that the patient will be admitted to the hospital for continued evaluation and treatment given her prior history of coronary artery disease associated with substernal chest pain prior to arrival. Diagnosis Primary Impression: Chest pain Qualified Codes: R07.2 - Precordial pain Additional Impression: Paroxysmal atrial fibrillation with rapid ventricular response Gracy Harper MD Oct 22, 2017 06:52
--- NOTE | 2017-10-22 06:57 | RADRPT ---
EXAM DATE: 10/22/2017 6:46 AM EDT AGE/SEX: 72 years / Female INDICATIONS: Shortness of breath. CLINICAL DATA: This is the patient's initial encounter. Patient reports that signs and symptoms have been present for 1 day and indicates a pain score of 0/10. MEDICAL/SURGICAL HISTORY: Chronic obstructive pulmonary disease. Hypertension. CABG. COMPARISON: [facility] [place], 10/10/2017. . FINDINGS: Minimal basilar atelectasis. Trace pleural effusions. Mild cardiomegaly. Postoperative CABG. No pneum othorax. CONCLUSION: Cardiomegaly with trace pleural effusions and minimal basilar atelectasis. Electronically signed by: Binh Hutchison MD 10/22/2017 6:56 AM EDT
--- NOTE | 2017-10-22 07:09 | PD ---
Physical Exam Date Seen by Provider: Oct 22, 2017 Time Seen by Provider: 07:00 Narrative The patient was signed out to me at change of shift by Dr. Harper. Please see her H&P for further details. We are awaiting labs. Patient presented with chest pain. She received 2 nitro from [facility] prior to arrival. At that time her heart rate was A. fib with RVR with ST depression. After receiving the aspirin and nitro, patient's heart rhythm converted to normal sinus rhythm with resolution of the ST depressions. Data Data Last Documented VS Vital Signs Date Time Temp Pulse Resp B/P (MAP) Pulse Ox O2 Delivery O2 Flow Rate FiO2 10/22/17 08:00 59 18 90/54 (66) 97 Nasal Cannula 2.00 Orders Orders Electrocardiogram (10/22/17 06:31) B-Type Natriuretic Peptide (10/22/17:31) Ckmb (Isoenzyme) Profile (10/22/17:31) Complete Blood Count With Diff (10/22/17:31) Comprehensive Metabolic Panel (10/22/17:31) Magnesium (Mg) (10/22/17 06:31) Prothrombin Time / Inr (Pt) (10/22/17 06:31) Act Partial Throm Time (Ptt) (10/22/17 06:31) Troponin I (10/22/17 06:31) Lipase (10/22/17 06:31) Chest, Single Ap (10/22/17 06:31) Ecg Monitoring (10/22/17 06:31) Bilateral Bp Monitoring (10/22/17:31) Iv Access Insert/Monitor (10/22/17:31) Oximetry (10/22/17 06:31) Oxygen Administration (10/22/17 06:31) Nitroglycerin 2% Oint (Nitroglycerin 2% (10/22/17 06:45) Sodium Chloride 0.9% Flush (Ns Flush) (10/22/17 06:45) Admit Order (Ed Use Only) (10/22/17 08:32) Labs Laboratory Tests Test 10/22/17 06:38 White Blood Count 12.3 TH/MM3 Red Blood Count 4.98 MIL/MM3 Hemoglobin 14.0 GM/DL Hematocrit 42.1 % Mean Corpuscular Volume 84.5 FL Mean Corpuscular Hemoglobin 28.0 PG Mean Corpuscular Hemoglobin Concent 33.2 % Red Cell Distribution Width 14.8 % Platelet Count 253 TH/MM3 Mean Platelet Volume 7.5 FL Neutrophils (%) (Auto) 73.4 % Lymphocytes (%) (Auto) 20.5 % Monocytes (%) (Auto) 5.2 % Eosinophils (%) (Auto) 0.5 % Basophils (%) (Auto) 0.4 % Neutrophils # (Auto) 9.0 TH/MM3 Lymphocytes # (Auto) 2.5 TH/MM3 Monocytes # (Auto) 0.6 TH/MM3 Eosinophils # (Auto) 0.1 TH/MM3 Basophils # (Auto) 0.0 TH/MM3 CBC Comment AUTO DIFF Differential Comment AUTO DIFF CONFIRMED Prothrombin Time 10.7 SEC Prothromb Time International Ratio 1.1 RATIO Activated Partial Thromboplast Time 21.1 SEC Blood Urea Nitrogen 17 MG/DL Creatinine 0.82 MG/DL Random Glucose 143 MG/DL Total Protein 5.4 GM/DL Albumin 2.8 GM/DL Calcium Level 7.6 MG/DL Magnesium Level 2.2 MG/DL Alkaline Phosphatase 100 U/L Aspartate Amino Transf (AST/SGOT) 40 U/L Alanine Aminotransferase (ALT/SGPT) 34 U/L Total Bilirubin 0.8 MG/DL Sodium Level 141 MEQ/L Potassium Level 3.4 MEQ/L Chloride Level 98 MEQ/L Carbon Dioxide Level 34.4 MEQ/L Anion Gap 9 MEQ/L Estimat Glomerular Filtration Rate 69 ML/MIN Total Creatine Kinase 61 U/L Troponin I 0.29 NG/ML B-Type Natriuretic Peptide 347 PG/ML Lipase 35 U/L [facility] Medical Record Reviewed: Yes Supervised Visit with CHRISTIAN: No Differential Diagnosis ACS versus A. fib with RVR versus musculoskeletal disease versus metabolic derangement Narrative Course This is a 72-year-old female with a history of coronary artery disease, presents here with chest pain and rapid heart rate. Patient was in A. fib with RVR and had diffuse ST depression. After 2 sublingual nitro and an aspirin, the patient converted to sinus rhythm. Troponins mildly elevated at 0.29. She has had previous elevations in her troponin. The patient has had a 5 vessel bypass and currently has 2 of the bypass vessels that are clotted out. [facility] agrees with the admission under observation at this time. They will do serial enzymes. He intends on consulting court manager. When she was last seen late last month, they opted to do medical management rather than try to stent the occluded vessels. Diagnosis Primary Impression: Chest pain Qualified Codes: R07.2 - Precordial pain Additional Impressions: Paroxysmal atrial fibrillation with rapid ventricular response Elevated troponin DM (diabetes mellitus) COPD (chronic obstructive pulmonary disease) HTN (hypertension) Hyperlipemia Admitting Information Admitting Physician Requests: Observation Dallin Rea MD Oct 22, 2017 07:09
[2017-10-22 07:11] LABS: BASOPHIL % 0.4 % (0.0-2.0); EOSINOPHIL # 0.1 TH/MM3 (0-0.4); EOSINOPHIL % 0.5 % (0.0-4.0); HEMATOCRIT 42.1 % (35.0-46.0); LYMPH % 20.5 % (9.0-44.0); LYMPHOCYTE # 2.5 TH/MM3 (1.0-4.8); MEAN CELL VOLUME 84.5 FL (80.0-100.0); MEAN CORPUSCULAR HGB CONC 33.2 % (32.0-36.0); MEAN PLATELET VOLUME 7.5 FL (7.0-11.0); MONO % 5.2 % (0.0-8.0); MONOCYTE # 0.6 TH/MM3 (0-0.9); NEUT % 73.4 % (16.0-70.0); PLATELET COUNT 253 TH/MM3 (150-450); RED BLOOD COUNT 4.98 MIL/MM3 (4.00-5.30); RED CELL DISTRIBUTION WIDTH 14.8 % (11.6-17.2); WHITE BLOOD COUNT 12.3 TH/MM3 (4.0-11.0)
[2017-10-22 07:30] LABS: INTERNATIONAL NORMALIZED RATIO 1.1 RATIO; PROTHROMBIN TIME - PATIENT 10.7 SEC (9.8-11.6)
[2017-10-22 07:38] LABS: ALBUMIN 2.8 GM/DL (3.4-5.0); ALKALINE PHOSPHATASE 100 U/L (45-117); ALT (GPT) 34 U/L (10-53); BICARBONATE 34.4 MEQ/L (21.0-32.0); BLOOD UREA NITROGEN 17 MG/DL (7-18); CALCIUM 7.6 MG/DL (8.5-10.1); CHLORIDE 98 MEQ/L (98-107); CREATININE 0.82 MG/DL (0.50-1.00); GLOMERULAR FILTRATION RATE 69 ML/MIN (>89); GLUCOSE,RANDOM 143 MG/DL (74-106); SODIUM (NA) 141 MEQ/L (136-145); TOTAL BILIRUBIN ADULT 0.8 MG/DL (0.2-1.0); TOTAL PROTEIN 5.4 GM/DL (6.4-8.2); TROPONIN I 0.29 NG/ML (0.02-0.05)
[2017-10-22 07:39] LABS: AST (GOT) 40 U/L (15-37); MAGNESIUM 2.2 MG/DL (1.5-2.5)
[2017-10-22] MEDS ORDERED: ONDANSETRON HCL 4 MG/2 ML VIAL IVP PRN (08:45)
[2017-10-22] MEDS ORDERED: ASPIRIN 81 MG CHEW TAB CHEW ONE (08:45)
[2017-10-22] MEDS ORDERED: SODIUM CHLORIDE 0.9% FLUSH 10 ML FLUSH IV FLUSH PRN (08:45)
[2017-10-22] MEDS ORDERED: NALOXONE HCL 0.4 MG/ML AMP IV PUSH PRN (08:45)
[2017-10-22] MEDS ORDERED: METOPROLOL SUCCINATE 25 MG EXTENDED RELEASE TAB PO SCH (09:00)
[2017-10-22] MEDS: ASPIRIN 81 MG CHEW TAB CHEW SCH (09:00)
[2017-10-22] MEDS ORDERED: amLODIPine BESYLATE 5 MG TAB PO SCH (09:00)
[2017-10-22] MEDS: POTASSIUM CHLORIDE 20 MEQ CONTROLLED RELEASE TAB PO SCH (09:21)
[2017-10-22] MEDS: FUROSEMIDE 40 MG TAB PO SCH ×2 (09:22→17:40)
[2017-10-22] MEDS: metFORMIN HCL 500 MG TAB PO SCH ×2 (09:22→17:40)
[2017-10-22] MEDS: SODIUM CHLORIDE 0.9% FLUSH 10 ML FLUSH IV FLUSH SCH ×2 (09:22→20:06)
[2017-10-22] MEDS ORDERED: ENOXAPARIN SODIUM 40 MG/0.4 ML SYRINGE SQ SCH (10:00)
[2017-10-22] MEDS: MORPHINE SULFATE 60 MG CONTROLLED RELEASE TAB PO SCH ×2 (10:22→17:41)
[2017-10-22] MEDS ORDERED: TIOTROPIUM BROMIDE 18 MCG INH INH SCH (11:00)
[2017-10-22] MEDS: RANOLAZINE 500 MG EXTENDED RELEASE TAB PO SCH ×2 (12:05→20:08)
[2017-10-22] MEDS: SUCRALFATE 1 GM/10 ML CUP PO SCH ×3 (12:06→20:05)
--- NOTE | 2017-10-22 13:43 | MB ---
cc: Arnel Harper MD DATE: 10/22/2017 DATE OF : 1945 REASON FOR CONSULTATION: Evaluation of chest pain. HISTORY OF PRESENT ILLNESS: Olive Small is a 72-year-old female who does not claim to have a house manager regularly following her. She saw Dr. Rucker in the office 03/19/2017. She saw Dr. Gonzalez in the hospital just recently. She does not have any outpatient visits scheduled with either one. She comes in now after having just been discharged less than a week ago. She was admitted with respiratory failure 10/08/2017. She ruled in for a non-STEMI. She had a cardiac catheterization by Dr. Gonzalez on 10/10/2017. The left main was 99% stenosed, the LAD was subtotally occluded with a patent left internal mammary graft. The vein graft to the diagonal had two 50% lesions. The circumflex artery had occlusion of the obtuse marginal branch with a patent graft. The right coronary artery was totally occluded with right collaterals. She has O2 dependent COPD. She apparently was watching the news this morning and developed onset of shortness of breath, severe substernal chest pain like someone standing on her chest, radiating to both arms, nausea and diaphoresis. Paramedics arrived and we have the copy of the EKG strips that were obtained. EKG strip shows atrial fibrillation with a ventricular rate of 147. Apparently while she was still in the ambulance, she converted to sinus rhythm and her chest pain went away at that point. She is currently pain-free and having no complaints. Note: The patient was unaware of her increased heart rate when she had her episode this morning. PAST MEDICAL HISTORY: Coronary artery disease status post bypass surgery 02/04/2002, status post catheterization 10/10/2017 as described above, hyperlipidemia, hypertension, diabetes mellitus, sleep apnea, hiatal hernia. SOCIAL HISTORY: She quit smoking only a month ago. PAST SURGICAL HISTORY: Appendectomy, cholecystectomy, thyroid surgery, dental implants. LIST OF MEDICATIONS: As charted and includes: 1. Metoprolol ER 25 mg. 2. Amlodipine 5 mg. 3. Imdur 60 b.i.d. 4. Ranexa 500 b.i.d. 5. Aspirin 81 mg. 6. Atorvastatin 10 mg. 7. Spiriva. 8. Famotidine. 9. Carafate. 10. Pantoprazole. 11. Phenergan. 12. Morphine. 13. Percocet. REVIEW OF SYSTEMS: Negative for bleeding. Remainder of review of systems negative. PHYSICAL EXAMINATION: GENERAL: Well-developed, well-nourished female, in no acute distress. VITAL SIGNS: Charted. HEENT: Unremarkable. NECK: Reveals no JVD. No bruits. CHEST: Diminished breath sounds. No wheezes or rales. CARDIAC: S1, S2, regular rate and rhythm, 1/6 systolic ejection murmur. ABDOMEN: Soft, nontender. EXTREMITIES: No clubbing, cyanosis or edema. Pulses are intact. EKG strip from the ambulance at 5:46 a.m. shows AFib at a rate of 147 beats per minute. EKG here at 6:27 a.m. shows sinus rhythm with minor nonspecific ST changes. Chest x-ray shows cardiomegaly, trace pleural effusions. LABORATORY DATA: Her hematocrit is 42.1, white count is 12,300 which is down from a few days ago. Potassium is 3.4, potassium 0.82. Troponin is 0.29, which is down from 1.82 on 10/16/2017. IMPRESSION: A 72-year-old lady with chronic obstructive pulmonary disease, coronary artery disease, comes in now with paroxysmal atrial fibrillation and chest pain. She converted to sinus rhythm with resolution of her chest pain. RECOMMENDATIONS: Initiate anticoagulation with Eliquis 5 b.i.d. Increased her metoprolol. If stable, probably let her go home to have followup evaluation by Dr. Hernandez for consideration of an ablation. MD ROSS Silva/MALCOLM , 01:22 PM , 01:43 PM
[2017-10-22] MEDS ORDERED: PILL SPLITTER OTHER PRN (14:00)
--- NOTE | 2017-10-22 14:39 | EKG ---
Date Performed: 10/22/2017 Time Performed: 06:27:52 PTAGE: 72 years EKG: SINUS BRADYCARDIA MINIMAL ST DEPRESSION BORDERLINE ECG WARNING: DATA QUALITY MAY AFFECT INT ERPRETATION Since the PREVIOUS TRACING , no significant change noted PREVIOUS TRACIN10/16/2017 @19.08 DOCTOR: Colin Christian Interpretating Date/Time 10/22/2017 14:38:31
--- NOTE | 2017-10-22 15:36 | HHI.HP ---
HPI Service [facility] Hospitalists Primary Care Physician Yohan Davison MD Admission Diagnosis Chest pain, paroxysmal a fib, dm, htn, hyperlipedemia,elevated tropo Diagnoses: (1) Chest pain (2) CAD (coronary artery disease) Travel History International Travel<30 Days: No Contact w/Intl Traveler <30 Da: No Traveled to Known Affected Are: No History of Present Illness 72-year-old female with a past medical history significant for severe coronary artery disease, myocardial infarction, COPD, type 2 diabetes, presents to the ER after experiencing chest pain starting at 5 AM this morning. On admission she was found to have atrial fibrillation with RVR. Her chest pain responded to simple nitroglycerin and the RVR was converted to sinus rhythm. She states that this all began after she saw mouth at her retirement 2 nights ago. She has not slept in 2 days and despite moving rooms lives in fear due to her phobia. She denies any dyspnea or other medical issues active at this time. She was discharged from [facility] 4 days ago following myocardial infarction 2, due to her severe vessel disease, history of CABG and multiple stenting she is not a candidate for intervention and was determined to be appropriate for medical management as her best option. Review of Systems Constitutional: DENIES: Diaphoretic episodes, Fatigue, Fever, Weight gain, Weight loss Eyes: DENIES: Blurred vision, Diplopia, Eye inflammation, Eye pain Respiratory: DENIES: Apneas, Cough, Snoring, Wheezing, Hemoptysis, Sputum production Cardiovascular: COMPLAINS OF: Chest pain, Palpitations, DENIES: Syncope, Dyspnea on Exertion, PND, Lower Extremity Edema, Orthopnea Gastrointestinal: DENIES: Abdominal pain, Black stools, Bloody stools, Constipation, Diarrhea, Nausea, Vomiting Musculoskeletal: DENIES: Joint pain, Muscle aches, Stiffness, Joint Swelling Hematologic/lymphatic: DENIES: Bruising, Lymphadenopathy Immunologic/allergic: DENIES: Eczema, Urticaria Neurologic: DENIES: Abnormal gait, Headache, Localized weakness, Paresthesias, Seizures Psychiatric: DENIES: Anxiety, Confusion, Mood changes, Depression, Hallucinations, Agitation Past Family Social History Past Medical History Hypertension, CABG 5, RI 3, hypercholesterol, hypertension, COPD, pneumonia, sleep apnea, type 2 diabetes, hypothyroidism, osteoporosis, arthritis Past Surgical History CABG 5, dental implants, appendectomy, hiatal hernia repair, cholecystectomy, Allergies: Coded Allergies: penicillin G (Unverified Allergy, Severe, Anaphylaxis, 10/07/17) Family History Coronary artery disease Social History Smokes 1 pack of cigarettes per day, says that she is quitting. Social alcohol use Physical Exam Vital Signs Vital Signs Date Time Temp Pulse Resp B/P (MAP) Pulse Ox O2 Delivery O2 Flow Rate FiO2 10/22/17 15:14 98.2 54 16 92 10/22/17 15:09 91/58 (69) 10/22/17 13:05 58 10/22/17 12:45 97.7 57 16 92/54 (67) 97 10/22/17 12:23 10/22/17 12:07 62 16 117/70 (86) 97 Room Air 10/22/17 10:00 52 18 89/51 (64) 96 Nasal Cannula 2.00 10/22/17 09:00 54 16 92/51 (65) 97 Nasal Cannula 2.00 10/22/17 08:00 59 18 90/54 (66) 97 Nasal Cannula 2.00 10/22/17 07:30 56 87/51 (63) 10/22/17 07:00 55 16 85/52 (63) 96 Nasal Cannula 2.00 10/22/17 07:00 54 85/52 (63) 10/22/17 06:55 96 Nasal Cannula 2.00 10/22/17 06:18 62 16 106/55 (72) 92 10/22/17 06:18 54 103/56 (72) Physical Exam GENERAL: This is a well-nourished, well-developed patient, in no apparent distress. SKIN: No rashes, ecchymoses or lesions. Cool and dry. HEAD: Atraumatic. Normocephalic. No temporal or scalp tenderness. EYES: Pupils equal round and reactive. Extraocular motions intact. No scleral icterus. No injection or drainage. ENT: Nose without bleeding, purulent drainage or septal hematoma. Throat without erythema, tonsillar hypertrophy or exudate. Uvula midline. Airway patent. NECK: Trachea midline. No JVD or lymphadenopathy. Supple, nontender, no meningeal signs. CARDIOVASCULAR: Sinus bradycardia without murmurs, gallops, or rubs. RESPIRATORY: Clear to auscultation. Breath sounds equal bilaterally. No wheezes , rales, or rhonchi. GASTROINTESTINAL: Abdomen soft, non-tender, nondistended. No hepato-splenomegaly , or palpable masses. No guarding. MUSCULOSKELETAL: Extremities without clubbing, cyanosis, or edema. No joint tenderness, effusion, or edema noted. No calf tenderness. Negative Homans sign bilaterally. NEUROLOGICAL: Awake and alert. Cranial nerves II through XII intact. Motor and sensory grossly within normal limits. Five out of 5 muscle strength in all muscle groups. Normal speech. Laboratory Laboratory Tests Test 10/22/17 06:38 10/22/17 12:42 White Blood Count 12.3 Red Blood Count 4.98 Hemoglobin 14.0 Hematocrit 42.1 Mean Corpuscular Volume 84.5 Mean Corpuscular Hemoglobin 28.0 Mean Corpuscular Hemoglobin Concent 33.2 Red Cell Distribution Width 14.8 Platelet Count 253 Mean Platelet Volume 7.5 Neutrophils (%) (Auto) 73.4 Lymphocytes (%) (Auto) 20.5 Monocytes (%) (Auto) 5.2 Eosinophils (%) (Auto) 0.5 Basophils (%) (Auto) 0.4 Neutrophils # (Auto) 9.0 Lymphocytes # (Auto) 2.5 Monocytes # (Auto) 0.6 Eosinophils # (Auto) 0.1 Basophils # (Auto) 0.0 CBC Comment AUTO DIFF Differential Comment AUTO DIFF CONFIRMED Prothrombin Time 10.7 Prothromb Time International Ratio 1.1 Activated Partial Thromboplast Time 21.1 Blood Urea Nitrogen 17 Creatinine 0.82 Random Glucose 143 Total Protein 5.4 Albumin 2.8 Calcium Level 7.6 Magnesium Level 2.2 Alkaline Phosphatase 100 Aspartate Amino Transf (AST/SGOT) 40 Alanine Aminotransferase (ALT/SGPT) 34 Total Bilirubin 0.8 Sodium Level 141 Potassium Level 3.4 Chloride Level 98 Carbon Dioxide Level 34.4 Anion Gap 9 Estimat Glomerular Filtration Rate 69 Total Creatine Kinase 61 Troponin I 0.29 0.72 B-Type Natriuretic Peptide 347 Lipase 35 Result Diagram: 10/22/1763710/22/17637 Septic Shock Reassessment Septic shock perfusion: reassessment completed Caprini VTE Risk Assessment Caprini VTE Risk Assessment: Mod/High Risk (score >= 2) Caprini Risk Assessment Model Point Value = 1 Point Value = 2 Point Value = 3 Point Value = 5 Age 41-60 Minor surgery BMI > 25 kg/m2 Swollen legs Varicose veins or History of unexplained or recurrent spontaneous Oral contraceptives or hormone replacement Sepsis (< 1 month) Serious lung disease, including pneumonia (< 1 month) Abnormal pulmonary function Acute myocardial infarction Congestive heart failure (< 1 month) History of inflammatory bowel disease Medical patient at bed rest Age 61-74 Arthroscopic surgery Major open surgery (> 45 min) Laparoscopic surgery (> 45 min) Malignancy Confined to bed (> 72 hours) Immobilizing plaster cast Central venous access Age >= 75 History of VTE Family history of VTE Factor V Leiden Prothrombin [id number] Lupus anticoagulant Anticardiolipin antibodies Elevated serum homocysteine Heparin-induced thrombocytopenia Other congenital or acquired thrombophilia Stroke (< 1 month) Elective arthroplasty Hip, pelvis, or leg fracture Acute spinal cord injury (< 1 month) Prophylaxis Regimen Total Risk Factor Score Risk Level Prophylaxis Regimen 0-1 Low Early ambulation 2 Moderate Order ONE of the following: *Sequential Compression Device (SCD) *Heparin 5000 units SQ BID 3-4 Higher Order ONE of the following medications: *Heparin 5000 units SQ TID *Enoxaparin/Lovenox 40 mg SQ daily (WT < 150 kg, CrCl > 30 mL/min) *Enoxaparin/Lovenox 30 mg SQ daily (WT < 150 kg, CrCl > 10-29 mL/min) *Enoxaparin/Lovenox 30 mg SQ BID (WT < 150 kg, CrCl > 30 mL/min) AND/OR *Sequential Compression Device (SCD) 5 or more Highest Order ONE of the following medications: *Heparin 5000 units SQ TID (Preferred with Epidurals) *Enoxaparin/Lovenox 40 mg SQ daily (WT < 150 kg, CrCl > 30 mL/min) *Enoxaparin/Lovenox 30 mg SQ daily (WT < 150 kg, CrCl > 10-29 mL/min) *Enoxaparin/Lovenox 30 mg SQ BID (WT < 150 kg, CrCl > 30 mL/min) AND *Sequential Compression Device (SCD) Assessment and Plan Problem List: (1) Chest pain ICD Code: R07.9 - Chest pain, unspecified Status: Acute (2) CAD (coronary artery disease) ICD Code: I25.10 - CAD (coronary artery disease) Status: Acute Assessment and Plan Chest pain Patient had recent RI on her last hospitalization, discharged only 4 days ago Medical management recommended at that time due to severe vessel disease, history of CABG, history of multiple stents Continue medical management Nitroglycerin as needed, oxygen as needed Follow on telemetry Atrial fibrillation with RVR Currently resolved after first round of treatment Patient is slightly bradycardic, will follow on telemetry Appreciate cardiology consult h/o COPD Continue home medications, stable at this time Type 2 diabetes Sliding scale insulin coverage with Accu-Cheks Diabetic diet DVT prophylaxis Lovenox Problem Qualifiers (1) Chest pain: Qualified Codes: R07.2 - Precordial pain Bowen Morales MD Oct 22, 2017 15:35
--- NOTE | 2017-10-22 19:33 | EKG ---
Date Performed: 10/22/2017 Time Performed: 15:21:32 PTAGE: 72 years EKG: SINUS BRADYCARDIA NONSPECIFIC ST & T-WAVE ABNORMALITY BORDERLINE ECG Compared to prior elec trocardiogram, Nonspecific T wave changes are now present . PREVIOUS TRACING : 10/22/2017 06.27 DOCTOR: Chente Marques Interpretating Date/Time 10/22/2017 19:32:35
[2017-10-22] MEDS: APIXABAN 5 MG TABLET PO SCH (20:06)
[2017-10-22] MEDS: FAMOTIDINE 20 MG TAB PO SCH (20:06)
[2017-10-22] MEDS: ATORVASTATIN 10 MG TAB PO SCH (20:06)
[2017-10-22] MEDS: ISOSORBIDE MONONITRATE 60 MG CR TAB (IMDUR) PO SCH (20:06)
--- NOTE | 2017-10-22 21:39 | EKG ---
Date Performed: 10/22/2017 Time Performed: 18:21:04 PTAGE: 72 years EKG: SINUS BRADYCARDIA Nonspecific ST and T wave abnormalities . No significant change from prio r electrocardiogram. DOCTOR: Chente Marques Interpretating Date/Time 10/22/2017 21:38:08
[2017-10-23] VITALS (9 sets, daily range): BP systolic 105–156; BP diastolic 55–89; PULSE 54–140; RESP 12–25; TEMP 97.4–98.6; O2SAT 94–97
[2017-10-23] MEDS: MORPHINE SULFATE 60 MG CONTROLLED RELEASE TAB PO SCH ×3 (02:47→18:00)
[2017-10-23] MEDS: ISOSORBIDE MONONITRATE 60 MG CR TAB (IMDUR) PO SCH ×2 (06:48→21:52)
[2017-10-23 07:48] LABS: AUTOMATED NEUTROPHIL # 7.5 TH/MM3 (1.8-7.7); BASOPHIL % 0.3 % (0.0-2.0); EOSINOPHIL # 0.1 TH/MM3 (0-0.4); EOSINOPHIL % 0.8 % (0.0-4.0); HEMATOCRIT 43.1 % (35.0-46.0); HEMOGLOBIN 14.2 GM/DL (11.6-15.3); LYMPH % 26.1 % (9.0-44.0); LYMPHOCYTE # 2.9 TH/MM3 (1.0-4.8); MEAN CORPUSCULAR HGB CONC 32.9 % (32.0-36.0); MEAN PLATELET VOLUME 7.6 FL (7.0-11.0); MONO % 6.6 % (0.0-8.0); MONOCYTE # 0.7 TH/MM3 (0-0.9); NEUT % 66.2 % (16.0-70.0); PLATELET COUNT 220 TH/MM3 (150-450); RED BLOOD COUNT 5.07 MIL/MM3 (4.00-5.30); RED CELL DISTRIBUTION WIDTH 15.2 % (11.6-17.2); WHITE BLOOD COUNT 11.3 TH/MM3 (4.0-11.0)
[2017-10-23 07:55] LABS: BICARBONATE 38.9 MEQ/L (21.0-32.0); CALCIUM 8.1 MG/DL (8.5-10.1); CREATININE 0.84 MG/DL (0.50-1.00)
[2017-10-23] MEDS ORDERED: SPIRIVA INH SCH (09:00)
[2017-10-23] MEDS: RANOLAZINE 500 MG EXTENDED RELEASE TAB PO SCH ×2 (09:28→21:52)
[2017-10-23] MEDS: ONDANSETRON ODT 4 MG TAB PO PRN ×2 (09:28→16:20)
[2017-10-23] MEDS: METOPROLOL SUCCINATE 50 MG EXTENDED RELEASE TAB PO SCH (09:29)
[2017-10-23] MEDS: PANTOPRAZOLE SOD 40 MG DELAYED RELEASE TAB PO SCH (09:29)
[2017-10-23] MEDS: amLODIPine BESYLATE 5 MG TAB PO SCH (09:29)
[2017-10-23] MEDS: SUCRALFATE 1 GM/10 ML CUP PO SCH ×4 (09:30→21:00)
[2017-10-23] MEDS: metFORMIN HCL 500 MG TAB PO SCH ×2 (09:30→18:00)
[2017-10-23] MEDS: FUROSEMIDE 40 MG TAB PO SCH ×2 (09:30→16:19)
[2017-10-23] MEDS: SODIUM CHLORIDE 0.9% FLUSH 10 ML FLUSH IV FLUSH SCH ×2 (09:30→21:52)
[2017-10-23] MEDS: POTASSIUM CHLORIDE 20 MEQ CONTROLLED RELEASE TAB PO SCH (09:30)
[2017-10-23] MEDS: ASPIRIN 81 MG CHEW TAB CHEW SCH (09:30)
[2017-10-23] MEDS: APIXABAN 5 MG TABLET PO SCH ×2 (09:30→21:51)
--- NOTE | 2017-10-23 11:47 | HHI.PR ---
Subjective Remarks Follow-up for Rose. cristel with RVR. Patient reports she does not feel well this morning. She reports nausea with one episode of vomiting. She reports some mild epigastric discomfort. She was able to tolerate cereal and eggs for breakfast. She denies any chest pain, palpitations, shortness of breath. Denies any other medical complaints at this time. Objective Vitals Vital Signs Date Time Temp Pulse Resp B/P (MAP) Pulse Ox O2 Delivery O2 Flow Rate FiO2 10/23/17 11:09 20 10/23/17 08:07 98.6 54 12 115/59 (77) 95 10/23/17 04:23 98.6 60 16 105/55 (72) 97 10/22/17 23:48 98.5 58 16 108/60 (76) 93 10/22/17 19:23 98.3 57 16 93/52 (66) 91 10/22/17 17:41 114/62 (79) 10/22/17 15:14 98.2 54 16 92 10/22/17 15:09 91/58 (69) 10/22/17 13:05 58 10/22/17 12:45 97.7 57 16 92/54 (67) 97 10/22/17 12:23 10/22/17 12:07 62 16 117/70 (86) 97 Room Air I/O 10/22/17 10/22/17 10/22/17 10/23/17 10/23/17 10/23/17 07:00 15:00 23:00 07:00 15:00 23:00 Intake Total 240 ml 500 ml Balance 240 ml 500 ml Intake Oral 240 ml 500 ml Result Diagram: 10/23/1761610/23/1717 Imaging Last Impressions Chest X-Ray 10/22/17 0631 Signed Impressions: CONCLUSION: Cardiomegaly with trace pleural effusions and minimal basilar atelectasis. Objective Remarks GENERAL: Well-nourished, well-developed elderly female patient in [facility]. SKIN: Warm and dry. No rash. HEENT: Normocephalic. Atraumatic. Pupils equal and round. Mucous membranes pink and moist. NECK: Supple. Trachea midline. CARDIOVASCULAR: Irregular rate and rhythm. No murmur appreciated. RESPIRATORY: No accessory muscle use. Clear to auscultation. Breath sounds equal bilaterally. GASTROINTESTINAL: Abdomen soft, non-tender, nondistended. Normoactive bowel sounds x4. MUSCULOSKELETAL: No obvious deformities. Extremities without clubbing, cyanosis , or edema. NEUROLOGICAL: Awake and alert. No obvious cranial nerve deficits. Motor grossly within normal limits. Moving all extremities spontaneously. Normal speech. PSYCHIATRIC: Appropriate mood and affect; insight and judgment normal. Medications and IVs Current Medications Medications (Trade) Dose Ordered Sig/Indu Route Start Time Stop Time Status Last Admin (NS Flush) 2 ml UNSCH PRN IV FLUSH 10/22/17 08:45 (NS Flush) 2 ml BID IV FLUSH 10/22/17 09:00 10/23/17 09:30 (Narcan Inj) 0.4 mg UNSCH PRN IV PUSH 10/22/17 08:45 (Nitrostat Sl) 0.4 mg Q5M PRN SL 10/22/17 08:45 10/23/17 14:20 (Aspirin Chew) 81 mg DAILY CHEW 10/22/17 09:00 10/23/17 09:30 (Lipitor) 10 mg HS PO 10/22/17 21:00 10/22/17 20:06 (Pepcid) 20 mg HS PO 10/22/17 21:00 10/22/17 20:06 (Lasix) 40 mg BID@,18 PO 10/22/17 09:00 10/23/17 09:30 (Imdur) 60 mg BID@0700,2100 PO 10/22/17 21:00 10/23/17 06:48 (Glucophage) 500 mg BIDPC PO 10/22/17 09:00 10/23/17 09:30 (Oramorph Sr) 60 mg Q8H PO 10/22/17 10:00 10/23/17 09:29 (Percocet 10-325 Mg) 1 tab Q6H PRN PO 10/22/17 08:45 (Protonix) 40 mg DAILYAC PO 10/23/17 08:00 10/23/17 09:29 (KCl) 20 meq DAILY PO 10/22/17 09:00 10/23/17 09:30 (Ranexa) 1,000 mg Q12HR PO 10/22/17 11:00 10/23/17 09:28 (Carafate Liq) 1 gm ACHS PO 10/22/17 12:00 10/23/17 12:00 Patient Own Medication PT OWN MED: SPIR... DAILY INH 10/23/17 09:00 Future Hold (Norvasc) 2.5 mg DAILY PO 10/23/17 09:00 10/23/17 09:29 (Toprol Xl) 50 mg DAILY PO 10/23/17 09:00 10/23/17 09:29 (Eliquis) 5 mg BID PO 10/22/17 21:00 10/23/17 09:30 (Pill Splitter) 1 ea UNSCH PRN OTHER 10/22/17 14:00 (Zofran Odt) 4 mg Q6H PRN PO 10/23/17 08:30 10/23/17 09:28 Amiodarone HCl 450 mg/Sodium Chloride 250 ml @ 33.33 mls/ hr Q7H31M PRN IV 10/23/17 15:00 10/23/17 15:17 A/P Problem List: (1) Chest pain ICD Code: R07.9 - Chest pain, unspecified Status: Acute (2) CAD (coronary artery disease) ICD Code: I25.10 - CAD (coronary artery disease) Status: Acute Assessment and Plan 72-year-old female with a past medical history significant for severe CAD, myocardial infarction, COPD, type 2 diabetes, presents to the ER after experiencing chest pain starting at 5 AM this morning. On admission she was found to have atrial fibrillation with RVR. Atrial fibrillation with RVR: EMS reported EKG strip showed afib with RVR rate 147, reportedly converted to sinus rhythm en route. -Cardiology consulted -Continue anticoagulation with Eliquis 5mg bid -Increased metoprolol to 50mg XL daily -Monitor on telemetry -Update 1405hrs: patient went into afib RVR HR 150s, given IV metoprolol 5mg push x1, cardiology recommended transfer to [facility] and start IV amiodarone drip CAD with Elevated Troponins: acute. EMR reviewed, s/p recent NSTEMI on prior admission, cardiac cath 10/10 showed left main was 99% stenosed, the LAD was subtotally occluded with a patent left internal mammary graft ; vein graft to the diagonal had two 50% lesions; circumflex artery with occlusion of the obtuse marginal branch with a patent graft; right coronary artery was totally occluded with right collaterals. -troponins trended 0.29 --> 0.72 --> 0.65 -suspect secondary to episodes of afib with RVR -continue BB, imdur, Ranexa, lasix, aspirin, statin, O2 prn, nitro prn, IV morphine prn -monitor on telemetry -cardiology consulted as above Diabetes Mellitus, type 2: chronic -hold patient's metformin for now -monitor Accu-checks and cover with SSI COPD: chronic, does not appear to be in exacerbation -continue duonebs prn GERD: chronic -continue PPI Chronic Pain: chronic -continue patient's Oramorph 60mg po q8h with percocet prn -outpatient f/up with pain management DVT Prophylaxis: on Eliquis Discharge Planning 1410hrs: Transfer to [facility] for recurrent afib with RVR, starting on amiodarone drip. Plan to discharge when heart rate controlled and cleared by cardiology, likely in 1-2 days. Patient will discharge back to [facility]. I spent 35 minutes [id number] with the patient or on the chaparro discussing the patient's disposition, prognosis, and plan of care with her caregivers. Over half the time spent was devoted to counseling the patient regarding placement and coordinating care with caregivers and case management. Problem Qualifiers (1) Chest pain: Qualified Codes: R07.2 - Precordial pain Juana Paredes PA-C Oct 23, 2017 11:47 am
[2017-10-23] MEDS: NITROGLYCERIN 0.4 MG SL 25 TABS/BTL SL PRN ×3 (14:06→14:20)
[2017-10-23] MEDS ORDERED: METOPROLOL TARTRATE 5 MG/5 ML VIAL IV PUSH ONE ×3 (14:15→16:15)
[2017-10-23] MEDS ORDERED: MORPHINE SULFATE 4 MG/ML INJ IV PUSH ONE (14:45)
[2017-10-23] MEDS ORDERED: AMIODARONE INJ 150 MG in DEXTROSE 5% IN WATER 100ML INJ 100 ML IV ONE ×2 (15:00)
[2017-10-23] MEDS: AMIODARONE INJ 450 MG in SODIUM CHLOR 0.9% (EXCEL) INJ 241 ML IV PRN (15:17)
[2017-10-23] MEDS ORDERED: ESMOLOL DRIP INJ PREMIX 250 ML IV PRN (16:15)
[2017-10-23] MEDS ORDERED: ESMOLOL HCL 100 MG/10 ML VIAL IV PUSH PRN ×4 (16:15→18:30)
[2017-10-23] MEDS ORDERED: ESMOLOL 2500 MG/NS 250 ML PREMIX DRIP IV PRN (18:15)
[2017-10-23] MEDS ORDERED: ESMOLOL HCL 100 MG/10 ML VIAL IV PRN (18:30)
--- NOTE | 2017-10-23 19:08 | PD.CARD.PN ---
Subjective Subjective Remarks Developed afib RVR with severe chest pain Objective Medications Current Medications Medications (Trade) Dose Ordered Sig/Indu Route Start Time Stop Time Status Last Admin (NS Flush) 2 ml UNSCH PRN IV FLUSH 10/22/17 08:45 (NS Flush) 2 ml BID IV FLUSH 10/22/17 09:00 10/23/17 09:30 (Narcan Inj) 0.4 mg UNSCH PRN IV PUSH 10/22/17 08:45 (Nitrostat Sl) 0.4 mg Q5M PRN SL 10/22/17 08:45 10/23/17 14:20 (Aspirin Chew) 81 mg DAILY CHEW 10/22/17 09:00 10/23/17 09:30 (Lipitor) 10 mg HS PO 10/22/17 21:00 10/22/17 20:06 (Pepcid) 20 mg HS PO 10/22/17 21:00 10/22/17 20:06 (Lasix) 40 mg BID@,18 PO 10/22/17 09:00 10/23/17 16:19 (Imdur) 60 mg BID@0700,2100 PO 10/22/17 21:00 10/23/17 06:48 (Glucophage) 500 mg BIDPC PO 10/22/17 09:00 10/23/17 09:30 (Oramorph Sr) 60 mg Q8H PO 10/22/17 10:00 10/23/17 18:00 (Percocet 10-325 Mg) 1 tab Q6H PRN PO 10/22/17 08:45 (Protonix) 40 mg DAILYAC PO 10/23/17 08:00 10/23/17 09:29 (KCl) 20 meq DAILY PO 10/22/17 09:00 10/23/17 09:30 (Ranexa) 1,000 mg Q12HR PO 10/22/17 11:00 10/23/17 09:28 (Carafate Liq) 1 gm ACHS PO 10/22/17 12:00 10/23/17 12:00 Patient Own Medication PT OWN MED: SPIR... DAILY INH 10/23/17 09:00 Future Hold (Norvasc) 2.5 mg DAILY PO 10/23/17 09:00 10/23/17 09:29 (Toprol Xl) 50 mg DAILY PO 10/23/17 09:00 10/23/17 09:29 (Eliquis) 5 mg BID PO 10/22/17 21:00 10/23/17 09:30 (Pill Splitter) 1 ea UNSCH PRN OTHER 10/22/17 14:00 (Zofran Odt) 4 mg Q6H PRN PO 10/23/17 08:30 10/23/17 16:20 Amiodarone HCl 450 mg/Sodium Chloride 250 ml @ 33.33 mls/ hr Q7H31M PRN IV 10/23/17 15:00 10/23/17 15:17 (Morphine Inj) 2 mg Q4H PRN IV PUSH 10/23/17 16:00 Esmolol HCl/ Sodium Chloride 250 ml @ 21.3 mls/hr TITRATE PRN IV 10/23/17 18:15 10/23/17 18:39 (Brevibloc Bolus Inj) 35.5 mg BOLUS PRN IV 10/23/17 18:30 10/23/17 18:40 Vital Signs / I&O Vital Signs Date Time Temp Pulse Resp B/P (MAP) Pulse Ox O2 Delivery O2 Flow Rate FiO2 10/23/17 18:43 120 10/23/17 18:39 129 113/65 10/23/17 18:30 97.9 139 24 152/78 (102) 97 10/23/17 17:50 121 154/97 10/23/17 15:45 97.4 127 25 114/86 (95) 94 10/23/17 15:17 112 153/76 10/23/17 15:15 110 165/90 10/23/17 15:05 135 156/76 10/23/17 14:50 140 24 156/76 (102) 96 10/23/17 12:00 98.6 67 20 145/65 (91) 95 10/23/17 11:09 20 10/23/17 08:07 98.6 54 12 115/59 (77) 95 10/23/17 04:23 98.6 60 16 105/55 (72) 97 10/22/17 23:48 98.5 58 16 108/60 (76) 93 10/22/17 19:23 98.3 57 16 93/52 (66) 91 I/O 10/22/17 10/22/17 10/22/17 10/23/17 10/23/17 10/23/17 07:00 15:00 23:00 07:00 15:00 23:00 Intake Total 240 ml 500 ml 103 ml Balance 240 ml 500 ml 103 ml Intake Oral 240 ml 500 ml IV Total 103 ml Physical Exam tele: AF with RVR Chest decreased BS CV S1S2 irr irr tachy no edema Laboratory Laboratory Tests Test 10/23/17 06:17 White Blood Count 11.3 TH/MM3 Red Blood Count 5.07 MIL/MM3 Hemoglobin 14.2 GM/DL Hematocrit 43.1 % Mean Corpuscular Volume 85.0 FL Mean Corpuscular Hemoglobin 28.0 PG Mean Corpuscular Hemoglobin Concent 32.9 % Red Cell Distribution Width 15.2 % Platelet Count 220 TH/MM3 Mean Platelet Volume 7.6 FL Neutrophils (%) (Auto) 66.2 % Lymphocytes (%) (Auto) 26.1 % Monocytes (%) (Auto) 6.6 % Eosinophils (%) (Auto) 0.8 % Basophils (%) (Auto) 0.3 % Neutrophils # (Auto) 7.5 TH/MM3 Lymphocytes # (Auto) 2.9 TH/MM3 Monocytes # (Auto) 0.7 TH/MM3 Eosinophils # (Auto) 0.1 TH/MM3 Basophils # (Auto) 0.0 TH/MM3 CBC Comment DIFF FINAL Differential Comment Blood Urea Nitrogen 14 MG/DL Creatinine 0.84 MG/DL Random Glucose 111 MG/DL Calcium Level 8.1 MG/DL Sodium Level 142 MEQ/L Potassium Level 3.5 MEQ/L Chloride Level 98 MEQ/L Carbon Dioxide Level 38.9 MEQ/L Anion Gap 5 MEQ/L Estimat Glomerular Filtration Rate 67 ML/MIN Imaging Last 48 hours Impressions Chest X-Ray 10/22/17 0631 Signed Impressions: CONCLUSION: Cardiomegaly with trace pleural effusions and minimal basilar atelectasis. Assessment and Plan Problem List: (1) COPD (chronic obstructive pulmonary disease) ICD Codes: J44.9 - Chronic obstructive pulmonary disease Status: Acute (2) CAD (coronary artery disease) ICD Codes: I25.10 - CAD (coronary artery disease) Status: Acute (3) NSTEMI (non-ST elevated myocardial infarction) ICD Codes: I21.4 - Non-ST elevation (NSTEMI) myocardial infarction Plan: Type 2 secondary to AF RVR, occluded RCA (4) Paroxysmal atrial fibrillation with rapid ventricular response ICD Codes: I48.0 - Paroxysmal atrial fibrillation Status: Acute Plan: IV esmolol and IV amio Assessment and Plan consult Dr. Hernandez. I will be OOT until Sunday. Arnel Harper MD Oct 23, 2017 19:08
[2017-10-23] MEDS: FAMOTIDINE 20 MG TAB PO SCH (21:51)
[2017-10-23] MEDS: ATORVASTATIN 10 MG TAB PO SCH (21:52)
[2017-10-23] MEDS: MORPHINE SULFATE 4 MG/ML INJ IV PUSH PRN (23:13)
[2017-10-24] VITALS (19 sets, daily range): BP systolic 81–145; BP diastolic 45–86; PULSE 54–74; RESP 20–22; TEMP 97.6–98.9; O2SAT 94–97
[2017-10-24] MEDS: MORPHINE SULFATE 60 MG CONTROLLED RELEASE TAB PO SCH ×3 (02:00→17:20)
[2017-10-24] MEDS: AMIODARONE INJ 450 MG in SODIUM CHLOR 0.9% (EXCEL) INJ 241 ML IV PRN (03:08)
[2017-10-24] MEDS: ISOSORBIDE MONONITRATE 60 MG CR TAB (IMDUR) PO SCH ×2 (06:07→21:10)
[2017-10-24] MEDS: SODIUM CHLORIDE 0.9% FLUSH 10 ML FLUSH IV FLUSH SCH ×2 (07:55→21:12)
[2017-10-24] MEDS ORDERED: DEXTROSE 50% IN WATER 50 ML VIAL(D50) IV PUSH PRN (08:15)
[2017-10-24] MEDS ORDERED: GLUCAGON 1 MG/ML VIAL OTHER PRN (08:15)
[2017-10-24] MEDS: RANOLAZINE 500 MG EXTENDED RELEASE TAB PO SCH ×2 (08:21→21:04)
[2017-10-24] MEDS: ASPIRIN 81 MG CHEW TAB CHEW SCH (08:21)
[2017-10-24] MEDS: POTASSIUM CHLORIDE 20 MEQ CONTROLLED RELEASE TAB PO SCH (08:22)
[2017-10-24] MEDS: APIXABAN 5 MG TABLET PO SCH ×2 (08:22→21:04)
[2017-10-24] MEDS: metFORMIN HCL 500 MG TAB PO SCH ×2 (08:22→17:31)
[2017-10-24] MEDS: PANTOPRAZOLE SOD 40 MG DELAYED RELEASE TAB PO SCH (08:22)
[2017-10-24] MEDS: METOPROLOL SUCCINATE 50 MG EXTENDED RELEASE TAB PO SCH (09:00)
[2017-10-24] MEDS ORDERED: SODIUM CHLORID 0.9% 500 ML INJ 500 ML IV SCH (09:00)
[2017-10-24] MEDS: FUROSEMIDE 40 MG TAB PO SCH ×2 (09:00→17:20)
[2017-10-24] MEDS: amLODIPine BESYLATE 5 MG TAB PO SCH ×2 (09:00→09:20)
[2017-10-24] MEDS: SUCRALFATE 1 GM/10 ML CUP PO SCH ×4 (09:08→21:04)
[2017-10-24] MEDS: AMIODARONE 200 MG TAB PO SCH ×2 (09:23→21:04)
--- NOTE | 2017-10-24 09:30 | EKG ---
Date Performed: 10/23/2017 Time Performed: 14:09:02 PTAGE: 72 years EKG: ATRIAL FIBRILLATION WITH RAPID VENTRICULAR RESPONSE MARKED ST DEPRESSION, CONSIDER SUBENDO CARDIAL INJURY ABNORMAL ECG INTERPRETATION BASED ON A DEFAULT AGE OF 40 YEARS NO PREVIOUS TRACING DOCTOR: Ruslan Gonzalez Interpretating Date/Time 10/24/2017 09:30:01
[2017-10-24] MEDS ORDERED: FUROSEMIDE 20 MG/2 ML VIAL IV PUSH PRN (11:15)
[2017-10-24] MEDS: INSULIN ASPART SUPPLEMENTAL SCALE SQ SCH ×3 (11:33→21:00)
[2017-10-24] MEDS ORDERED: SODIUM CHLORID 0.9% 500 ML INJ 500 ML IV ONE (11:45)
[2017-10-24 14:19] LABS: AUTOMATED NEUTROPHIL # 9.6 TH/MM3 (1.8-7.7); BASOPHIL # 0.1 TH/MM3 (0-0.2); BASOPHIL % 1.1 % (0.0-2.0); EOSINOPHIL # 0.1 TH/MM3 (0-0.4); EOSINOPHIL % 0.4 % (0.0-4.0); HEMATOCRIT 41.2 % (35.0-46.0); HEMOGLOBIN 13.7 GM/DL (11.6-15.3); LYMPH % 12.4 % (9.0-44.0); LYMPHOCYTE # 1.5 TH/MM3 (1.0-4.8); MEAN CELL VOLUME 83.7 FL (80.0-100.0); MEAN CORPUSCULAR HEMOGLOBIN 27.8 PG (27.0-34.0); MEAN CORPUSCULAR HGB CONC 33.2 % (32.0-36.0); MEAN PLATELET VOLUME 7.5 FL (7.0-11.0); MONO % 5.9 % (0.0-8.0); MONOCYTE # 0.7 TH/MM3 (0-0.9); NEUT % 80.2 % (16.0-70.0); PLATELET COUNT 184 TH/MM3 (150-450); RED BLOOD COUNT 4.91 MIL/MM3 (4.00-5.30); RED CELL DISTRIBUTION WIDTH 14.9 % (11.6-17.2)
[2017-10-24 14:32] LABS: BICARBONATE 28.9 MEQ/L (21.0-32.0); CALCIUM 7.7 MG/DL (8.5-10.1); CREATININE 0.79 MG/DL (0.50-1.00)
--- NOTE | 2017-10-24 15:49 | HHI.PR ---
Subjective Remarks 72-year-old female with history of severe multivessel disease and unable to be stented despite ID. Medical management was recommended on her previous hospitalization, she was readmitted 4 days after discharge with chest pain again. Today she states she feels very weak after spending time in the CVICU. Her blood pressure continues to be hypotensive despite IV fluid boluses. Objective Vitals Vital Signs Date Time Temp Pulse Resp B/P (MAP) Pulse Ox O2 Delivery O2 Flow Rate FiO2 10/24/17 14:00 62 10/24/17 13:00 64 10/24/17 12:33 88/50 (63) 10/24/17 12:00 98.1 60 20 81/50 (60) 94 10/24/17 12:00 58 10/24/17 12:00 54 10/24/17 10:23 98.2 66 20 87/54 (65) 94 10/24/17 10:23 59 10/24/17 08:44 95 Nasal Cannula 2.00 10/24/17 08:00 98.1 56 20 81/45 (57) 95 10/24/17 08:00 56 10/24/17 04:00 66 10/24/17 04:00 97.9 66 22 117/72 (87) 97 10/24/17 03:08 55 129/72 10/24/17 00:00 67 10/24/17 00:00 98.9 67 22 145/86 (105) 96 10/23/17 23:18 20 10/23/17 22:00 94 Nasal Cannula 3.00 10/23/17 21:56 62 154/92 10/23/17 20:00 119 10/23/17 20:00 97.8 119 18 131/89 (103) 95 10/23/17 19:45 60 154/92 10/23/17 19:00 18 10/23/17 18:43 120 10/23/17 18:39 129 113/65 10/23/17 18:30 97.9 139 24 152/78 (102) 97 10/23/17 17:50 121 154/97 10/23/17 15:45 97.4 127 25 114/86 (95) 94 I/O 10/23/17 10/23/17 10/23/17 10/24/17 10/24/17 10/24/17 07:00 15:00 23:00 07:00 15:00 23:00 Intake Total 103 ml 376 ml 1000 ml Output Total 900 ml Balance 103 ml -524 ml 1000 ml Intake Oral 100 ml IV Total 103 ml 276 ml 1000 ml Output Urine Total 900 ml Result Diagram: 10/24/17 1406 10/24/17 1406 Objective Remarks GENERAL: Well-nourished, well-developed patient. Tired appearing SKIN: Warm and dry. HEAD: Normocephalic. EYES: No scleral icterus. No injection or drainage. NECK: Supple, trachea midline. No JVD or lymphadenopathy. CARDIOVASCULAR: Irregularly irregular, rate controlled, without murmurs, gallops , or rubs. RESPIRATORY: Breath sounds equal bilaterally. No accessory muscle use. GASTROINTESTINAL: Abdomen soft, non-tender, nondistended. EXTREMITIES: No cyanosis, or edema. NEUROLOGICAL: Awake, alert, and oriented x 3. Non-focal. A/P Problem List: (1) Chest pain ICD Code: R07.9 - Chest pain, unspecified Status: Acute (2) CAD (coronary artery disease) ICD Code: I25.10 - CAD (coronary artery disease) Status: Acute Assessment and Plan Chest pain Patient had recent [place] on her last hospitalization, discharged only 4 days ago Medical management recommended at that time due to severe vessel disease, history of CABG, history of multiple stents Atrial fibrillation with RVR associated with chest pain, repeat troponins indicate another [place] Nitroglycerin as needed, oxygen as needed Appreciate cardiology following Atrial fibrillation with RVR Admitted with this condition, temporarily resolved but returned yesterday requiring a transferred to CVICU Patient is currently rate controlled after 24 hours with an amiodarone drip IV amiodarone was transitioned to p.o. amiodarone Appreciate cardiology consult Hypotension Patient is persistently hypotensive with systolics in the 70s-80s despite total of 2000 IV fluid bolus given today She feels tired but is otherwise asymptomatic, no dyspnea, chest pain Blood pressure medicines and Lasix held at this time, continue amiodarone Cardiology requested to review h/o COPD Continue home medications, stable at this time Type 2 diabetes Sliding scale insulin coverage with Accu-Cheks Diabetic diet DVT prophylaxis Lovenox Problem Qualifiers (1) Chest pain: Qualified Codes: R07.2 - Precordial pain Bowen Morales MD Oct 24, 2017 15:49
[2017-10-24] MEDS: ATORVASTATIN 10 MG TAB PO SCH (21:04)
[2017-10-24] MEDS: FAMOTIDINE 20 MG TAB PO SCH (21:04)
[2017-10-24] MEDS: oxyCODONE/ACETAMINOPHEN 10 MG/325 MG TAB PO PRN (21:13)
[2017-10-25] VITALS (20 sets, daily range): BP systolic 74–100; BP diastolic 43–59; PULSE 52–75; RESP 16–20; TEMP 98.3–98.8; O2SAT 74–96
[2017-10-25] MEDS: MORPHINE SULFATE 60 MG CONTROLLED RELEASE TAB PO SCH ×2 (01:21→17:03)
[2017-10-25 04:59] LABS: AUTOMATED NEUTROPHIL # 6.5 TH/MM3 (1.8-7.7); BASOPHIL % 0.3 % (0.0-2.0); EOSINOPHIL # 0.1 TH/MM3 (0-0.4); EOSINOPHIL % 0.8 % (0.0-4.0); HEMATOCRIT 41.9 % (35.0-46.0); LYMPH % 21.3 % (9.0-44.0); LYMPHOCYTE # 1.9 TH/MM3 (1.0-4.8); MEAN CELL VOLUME 84.3 FL (80.0-100.0); MEAN CORPUSCULAR HEMOGLOBIN 28.2 PG (27.0-34.0); MEAN CORPUSCULAR HGB CONC 33.4 % (32.0-36.0); MEAN PLATELET VOLUME 7.9 FL (7.0-11.0); MONO % 6.3 % (0.0-8.0); MONOCYTE # 0.6 TH/MM3 (0-0.9); NEUT % 71.3 % (16.0-70.0); PLATELET COUNT 170 TH/MM3 (150-450); RED BLOOD COUNT 4.97 MIL/MM3 (4.00-5.30); RED CELL DISTRIBUTION WIDTH 15.4 % (11.6-17.2); WHITE BLOOD COUNT 9.1 TH/MM3 (4.0-11.0)
[2017-10-25 05:26] LABS: BICARBONATE 30.8 MEQ/L (21.0-32.0); CALCIUM 8.5 MG/DL (8.5-10.1); CREATININE 0.88 MG/DL (0.50-1.00)
[2017-10-25 05:39] LABS: TROPONIN I 5.2 NG/ML (0.02-0.05)
[2017-10-25] MEDS: ISOSORBIDE MONONITRATE 60 MG CR TAB (IMDUR) PO SCH (06:11)
[2017-10-25] MEDS ORDERED: SODIUM CHLOR 0.9% 250 ML INJ 250 ML IV ONE (09:00)
[2017-10-25] MEDS: SODIUM CHLORIDE 0.9% FLUSH 10 ML FLUSH IV FLUSH SCH ×2 (09:12→20:58)
[2017-10-25] MEDS: metFORMIN HCL 500 MG TAB PO SCH ×2 (09:54→17:37)
[2017-10-25] MEDS: APIXABAN 5 MG TABLET PO SCH ×2 (09:55→20:58)
[2017-10-25] MEDS: RANOLAZINE 500 MG EXTENDED RELEASE TAB PO SCH ×2 (09:55→20:58)
[2017-10-25] MEDS: FUROSEMIDE 40 MG TAB PO SCH (09:56)
[2017-10-25] MEDS: ASPIRIN 81 MG CHEW TAB CHEW SCH (09:56)
[2017-10-25] MEDS: PANTOPRAZOLE SOD 40 MG DELAYED RELEASE TAB PO SCH (09:56)
[2017-10-25] MEDS: POTASSIUM CHLORIDE 20 MEQ CONTROLLED RELEASE TAB PO SCH (10:00)
[2017-10-25] MEDS: INSULIN ASPART SUPPLEMENTAL SCALE SQ SCH ×3 (12:00→20:27)
[2017-10-25] MEDS: METOPROLOL SUCCINATE 50 MG EXTENDED RELEASE TAB PO SCH (12:05)
--- NOTE | 2017-10-25 13:50 | MB ---
cc: Torey Hernandez MD DATE: 10/25/2017 REASON FOR CONSULTATION: Atrial fibrillation with fast ventricular response. HISTORY OF PRESENT ILLNESS: Mrs. Small is a 72-year-old female with a history of respiratory failure, previous non-ST elevation myocardial infarction, left heart catheterization was performed. The left main was 99%. The [place] to [place] was subtotally occluded. The vein graft to the diagonal was a 50% lesion. The patient was referred for medical management due to severe chronic obstructive pulmonary disease and oxygen dependence. She was readmitted to the emergency room due to atrial fibrillation with fast ventricular response. Medication was initiated. She was put on amiodarone, as well as esmolol. She is back into sinus rhythm. I was consulted for further evaluation and management. The chart was reviewed. The patient was evaluated. ALLERGIES: PENICILLIN. SOCIAL HISTORY: The patient denies smoking and drinking. FAMILY HISTORY: Noncontributory to her current medical condition. MEDICATIONS: Currently, she is on amiodarone 200 mg twice a day, amlodipine 2.5 mg a day, Eliquis, aspirin, Lipitor 10 mg at bedtime, famotidine 20 mg at bedtime, Lasix, Imdur, and metformin. REVIEW OF SYSTEMS: Currently, she refers feeling better. No palpitation, but still has some shortness of breath that is her baseline. PHYSICAL EXAMINATION: GENERAL: Alert, fully oriented. VITAL SIGNS: Blood pressure on evaluation was 96/62, that was on the monitor, respiratory rate 20-22, heart rate is in the 60s. LUNGS: Ventilated. CARDIOVASCULAR: S1, S2. No gallop. Regular. ABDOMEN: Soft. No masses. No bruit. EXTREMITIES: No edema. LABORATORY DATA: Electrocardiogram during hospitalization showed atrial fibrillation with fast ventricular response. Current one shows sinus rhythm with diffuse ST changes. LABS: Hemoglobin 14.09, white blood cells are 9.1. Potassium 3.5, creatinine 0.88, troponin is 5.20 down from 7.0. ASSESSMENT AND RECOMMENDATIONS: Ms. Small has apparently an acute myocardial infarction. Troponin is very high. She is going to need further evaluation by interventional cardiology. She was previously seen by Dr. Harper. The BNP is over 1000, it is around 1126. At this point, my recommendation is a consult to blind aide for further evaluation. The patient previously cathed by Dr. Gonzalez. Medical management for atrial fibrillation. The patient is very high risk and has severe COPD. If intubated, the patient will be very difficult to be extubated. The case discussed with the patient. If in the future she is back in atrial fibrillation and the heart rate cannot be controlled, then if ablation is a last resort, that will be considered. Torey Hernandez MD HS/DL , 01:17 PM , 01:49 PM
--- NOTE | 2017-10-25 16:30 | PD.CARD.PN ---
Subjective Subjective Remarks Asked by Dr. Hernandez to see due to elevated troponin Follow up for Dr. Harper Overall feels well just weak today No chest pain Objective Medications Current Medications Medications (Trade) Dose Ordered Sig/Indu Route Start Time Stop Time Status Last Admin (NS Flush) 2 ml UNSCH PRN IV FLUSH 10/22/17 08:45 (NS Flush) 2 ml BID IV FLUSH 10/22/17 09:00 10/25/17 09:12 (Narcan Inj) 0.4 mg UNSCH PRN IV PUSH 10/22/17 08:45 (Nitrostat Sl) 0.4 mg Q5M PRN SL 10/22/17 08:45 10/23/17 14:20 (Aspirin Chew) 81 mg DAILY CHEW 10/22/17 09:00 10/25/17 09:56 (Lipitor) 10 mg HS PO 10/22/17 21:00 10/24/17 21:04 (Pepcid) 20 mg HS PO 10/22/17 21:00 10/24/17 21:04 (Glucophage) 500 mg BIDPC PO 10/22/17 09:00 10/25/17 09:54 (Oramorph Sr) 60 mg Q8H PO 10/22/17 10:00 10/25/17 01:21 (Percocet 10-325 Mg) 1 tab Q6H PRN PO 10/22/17 08:45 10/24/17 21:13 (Protonix) 40 mg DAILYAC PO 10/23/17 08:00 10/25/17 09:56 (KCl) 20 meq DAILY PO 10/22/17 09:00 10/25/17 10:00 (Ranexa) 1,000 mg Q12HR PO 10/22/17 11:00 10/25/17 09:55 (Carafate Liq) 1 gm ACHS PO 10/22/17 12:00 10/24/17 21:04 Patient Own Medication PT OWN MED: SPIR... DAILY INH 10/23/17 09:00 Future Hold (Toprol Xl) 50 mg DAILY PO 10/23/17 09:00 10/25/17 12:05 (Eliquis) 5 mg BID PO 10/22/17 21:00 10/25/17 09:55 (Pill Splitter) 1 ea UNSCH PRN OTHER 10/22/17 14:00 (Zofran Odt) 4 mg Q6H PRN PO 10/23/17 08:30 10/23/17 16:20 Amiodarone HCl 450 mg/Sodium Chloride 250 ml @ 33.33 mls/ hr Q7H31M PRN IV 10/23/17 15:00 Future Hold 10/24/17 03:08 (Morphine Inj) 2 mg Q4H PRN IV PUSH 10/23/17 16:00 10/23/17 23:13 Esmolol HCl/ Sodium Chloride 250 ml @ 21.3 mls/hr TITRATE PRN IV 10/23/17 18:15 10/23/17 18:39 (Brevibloc Bolus Inj) 35.5 mg BOLUS PRN IV 10/23/17 18:30 10/23/17 18:40 (D50w (Vial) Inj) 50 ml UNSCH PRN IV PUSH 10/24/17 08:15 (Glucagon Inj) 1 mg UNSCH PRN OTHER 10/24/17 08:15 (NovoLOG SUPPLEMENTAL SCALE) 1 ACHS SLIDING SCALE SQ 10/24/17 12:00 10/25/17 12:00 (Cordarone) 200 mg DAILY PO 10/26/17 09:00 (Lasix) 40 mg DAILY PO 10/26/17 09:00 (Imdur) 60 mg DAILY PO 10/26/17 09:00 Vital Signs / I&O Vital Signs Date Time Temp Pulse Resp B/P (MAP) Pulse Ox O2 Delivery O2 Flow Rate FiO2 10/25/17 15:30 98.3 52 18 82/53 (63) 95 10/25/17 15:30 52 10/25/17 12:00 98.4 69 16 92/52 (65) 96 10/25/17 12:00 69 10/25/17 08:00 98.3 59 16 74/43 (53) 74 10/25/17 08:00 59 10/25/17 06:00 58 10/25/17 05:00 60 10/25/17 04:00 75 10/25/17 03:00 64 10/25/17 03:00 98.6 69 20 90/52 (65) 96 10/25/17 02:00 62 10/25/17 01:00 58 10/25/17 00:00 98.4 60 20 100/59 (73) 96 10/25/17 00:00 58 10/25/17 00:00 63 10/24/17 23:00 74 10/24/17 22:00 60 10/24/17 21:00 64 10/24/17 20:00 98.3 69 20 118/65 (82) 96 10/24/17 20:00 71 10/24/17 20:00 68 10/24/17 19:00 64 10/24/17 18:00 69 10/24/17 17:00 67 10/24/17 16:25 96/57 (70) I/O 10/24/17 10/24/17 10/24/17 10/25/17 10/25/17 10/25/17 07:00 15:00 23:00 07:00 15:00 23:00 Intake Total 376 ml 1000 ml 720 ml 350 ml 250 ml Output Total 900 ml 600 ml Balance -524 ml 1000 ml 120 ml 350 ml 250 ml Intake Oral 100 ml 720 ml 350 ml IV Total 276 ml 1000 ml 250 ml Output Urine Total 900 ml 600 ml # Voids 1 # Bowel Movements 0 1 Physical Exam GENERAL: NAD, AAOx3 SKIN: Warm and dry. HEAD: Atraumatic. Normocephalic. EYES: Pupils equal and round. No scleral icterus. No injection or drainage. ENT: No nasal bleeding or discharge. Mucous membranes pink and moist. NECK: Trachea midline. No JVD. CARDIOVASCULAR: Regular rate and rhythm. RESPIRATORY: No accessory muscle use. Decreased breath sounds bilaterally GASTROINTESTINAL: Abdomen soft, non-tender, nondistended. Hepatic and splenic margins not palpable. MUSCULOSKELETAL: Extremities without clubbing, cyanosis, or edema. No obvious deformities. NEUROLOGICAL: Awake and alert. No obvious cranial nerve deficits. Motor grossly within normal limits. Five out of 5 muscle strength in the arms and legs. Normal speech. PSYCHIATRIC: Appropriate mood and affect; insight and judgment normal. Laboratory Laboratory Tests Test 10/25/17 04:11 White Blood Count 9.1 TH/MM3 Red Blood Count 4.97 MIL/MM3 Hemoglobin 14.0 GM/DL Hematocrit 41.9 % Mean Corpuscular Volume 84.3 FL Mean Corpuscular Hemoglobin 28.2 PG Mean Corpuscular Hemoglobin Concent 33.4 % Red Cell Distribution Width 15.4 % Platelet Count 170 TH/MM3 Mean Platelet Volume 7.9 FL Neutrophils (%) (Auto) 71.3 % Lymphocytes (%) (Auto) 21.3 % Monocytes (%) (Auto) 6.3 % Eosinophils (%) (Auto) 0.8 % Basophils (%) (Auto) 0.3 % Neutrophils # (Auto) 6.5 TH/MM3 Lymphocytes # (Auto) 1.9 TH/MM3 Monocytes # (Auto) 0.6 TH/MM3 Eosinophils # (Auto) 0.1 TH/MM3 Basophils # (Auto) 0.0 TH/MM3 CBC Comment DIFF FINAL Differential Comment Blood Urea Nitrogen 15 MG/DL Creatinine 0.88 MG/DL Random Glucose 127 MG/DL Calcium Level 8.5 MG/DL Sodium Level 139 MEQ/L Potassium Level 3.5 MEQ/L Chloride Level 100 MEQ/L Carbon Dioxide Level 30.8 MEQ/L Anion Gap 8 MEQ/L Estimat Glomerular Filtration Rate 63 ML/MIN Troponin I 5.20 NG/ML Assessment and Plan Problem List: (1) COPD (chronic obstructive pulmonary disease) ICD Codes: J44.9 - Chronic obstructive pulmonary disease Status: Acute (2) CAD (coronary artery disease) ICD Codes: I25.10 - CAD (coronary artery disease) Status: Acute (3) NSTEMI (non-ST elevated myocardial infarction) ICD Codes: I21.4 - Non-ST elevation (NSTEMI) myocardial infarction (4) Paroxysmal atrial fibrillation with rapid ventricular response ICD Codes: I48.0 - Paroxysmal atrial fibrillation Status: Acute Assessment and Plan 1) NSTEMI Known CAD, most likely combination of CAD and Afib with RVR as chest pain with RVR Reviewed films from cath [address] Gonzalez Overall agree with attempting to treat medically There is left main disease which does supple a diagonal, but intervention would be overall difficult Most likely would impede on small ramus/LCx Diagonal supplied by collaterals from [place] to [place] 2) PAF Seen by Dr. Hernandez Overall high risk for sedation Agree with attempting to try to keep her out of AFib as it potentiates angina /NSTEMI 3) Hypotension May be on far side of [place], weight elevated and extra fluids given yesterday, may need diuresis, will re-evaluate tomorrow Darnell La DO Oct 25, 2017 16:30
[2017-10-25] MEDS: SUCRALFATE 1 GM/10 ML CUP PO SCH ×2 (17:01→20:58)
--- NOTE | 2017-10-25 17:05 | HHI.PR ---
Subjective Remarks patient up on bedside chair appears comfortable but weak awake and alert denies any chest pain or nausea or vomiting states poor po intake- no N/V Objective Vitals Vital Signs Date Time Temp Pulse Resp B/P (MAP) Pulse Ox O2 Delivery O2 Flow Rate FiO2 10/25/17 15:30 98.3 52 18 82/53 (63) 95 10/25/17 15:30 52 10/25/17 12:00 98.4 69 16 92/52 (65) 96 10/25/17 12:00 69 10/25/17 08:00 98.3 59 16 74/43 (53) 74 10/25/17 08:00 59 10/25/17 06:00 58 10/25/17 05:00 60 10/25/17 04:00 75 10/25/17 03:00 64 10/25/17 03:00 98.6 69 20 90/52 (65) 96 10/25/17 02:00 62 10/25/17 01:00 58 10/25/17 00:00 98.4 60 20 100/59 (73) 96 10/25/17 00:00 58 10/25/17 00:00 63 10/24/17 23:00 74 10/24/17 22:00 60 10/24/17 21:00 64 10/24/17 20:00 98.3 69 20 118/65 (82) 96 10/24/17 20:00 71 10/24/17 20:00 68 10/24/17 19:00 64 10/24/17 18:00 69 I/O 10/24/17 10/24/17 10/24/17 10/25/17 10/25/17 10/25/17 07:00 15:00 23:00 07:00 15:00 23:00 Intake Total 376 ml 1000 ml 720 ml 350 ml 250 ml Output Total 900 ml 600 ml Balance -524 ml 1000 ml 120 ml 350 ml 250 ml Intake Oral 100 ml 720 ml 350 ml IV Total 276 ml 1000 ml 250 ml Output Urine Total 900 ml 600 ml # Voids 1 # Bowel Movements 0 1 Result Diagram: 10/25/1741010/25/17410 Imaging Last Impressions Chest X-Ray 10/22/17 0631 Signed Impressions: CONCLUSION: Cardiomegaly with trace pleural effusions and minimal basilar atelectasis. Objective Remarks awake and alert , oriented 3 anciteric lungs- no rales regular rhythm abdomen soft, nontender extremities no edema A/P Problem List: (1) Chest pain ICD Code: R07.9 - Chest pain, unspecified Status: Acute (2) CAD (coronary artery disease) ICD Code: I25.10 - CAD (coronary artery disease) Status: Acute Assessment and Plan 72 years old female NSTEMI with known CAD Patient had recent [place] on her last hospitalization, discharged only 4 days ago Medical management recommended at that time due to severe vessel disease, history of CABG, history of multiple stents Atrial fibrillation with RVR associated with chest pain, repeat troponins indicate another [place] Nitroglycerin as needed, oxygen as needed on BB/Nitrates Appreciate cardiology following- Dr. La Paroxysmal Atrial fibrillation with RVR- now in SR Admitted with this condition, temporarily resolved but returned 10/24 requiring a transferred to CVICU Patient is currently rate controlled after 24 hours with an amiodarone drip IV amiodarone was transitioned to p.o. amiodarone Appreciate cardiology consult, seen by Dr. Hernandez on eliquis Hypotension - given 250 cc bolus - continue to monitor and adjust dosages Blood pressure medicines and Lasix held at this time, continue amiodarone - cardiology ff h/o COPD Continue home medications, stable at this time Type 2 diabetes Sliding scale insulin coverage with Accu-Cheks Diabetic diet DVT prophylaxis Lovenox PT/OT consult in am- if continue to be stable Problem Qualifiers (1) Chest pain: Qualified Codes: R07.2 - Precordial pain Jeffry Prieto MD Oct 25, 2017 17:05
[2017-10-25] MEDS ORDERED: POTASSIUM CHLORIDE 10 MEQ CONTROLLED RELEASE TAB PO ONE (17:15)
--- NOTE | 2017-10-25 19:11 | EKG ---
Date Performed: 10/24/2017 Time Performed: 14:59:04 PTAGE: 72 years EKG: --- Warning: Data quality may affect interpretation --- Sinus rhythm . Prolonged QT interval Possible LVH with secondary repolarization abnormality Extensive ST-T changes are probably due to ventricular hypertrophy when compared to prior EKG, patient is no longer in atri al fibrillation with rapid ventricular rate and has market ST changes Clinical correlation is recomme nded Abnormal ECG PREVIOUS TRACING : 10/23/2017 14.09 DOCTOR: Beckie Rucker Interpretating Date/Time 10/25/2017 19:10:53
[2017-10-25] MEDS: FAMOTIDINE 20 MG TAB PO SCH (20:58)
[2017-10-25] MEDS: ATORVASTATIN 10 MG TAB PO SCH (20:58)
[2017-10-26] VITALS (18 sets, daily range): BP systolic 54–98; BP diastolic 48–56; PULSE 48–81; RESP 16–18; TEMP 97.9–99; O2SAT 94–100
[2017-10-26] MEDS: MORPHINE SULFATE 60 MG CONTROLLED RELEASE TAB PO SCH ×3 (02:00→18:47)
[2017-10-26] MEDS: ONDANSETRON ODT 4 MG TAB PO PRN (04:25)
[2017-10-26 07:15] LABS: BICARBONATE 28.4 MEQ/L (21.0-32.0); CALCIUM 8.6 MG/DL (8.5-10.1); CREATININE 0.81 MG/DL (0.50-1.00)
[2017-10-26] MEDS: INSULIN ASPART SUPPLEMENTAL SCALE SQ SCH ×4 (08:00→21:15)
[2017-10-26] MEDS: NITROGLYCERIN 0.4 MG SL 25 TABS/BTL SL PRN (08:55)
[2017-10-26] MEDS: ASPIRIN 81 MG CHEW TAB CHEW SCH (08:56)
[2017-10-26] MEDS: PANTOPRAZOLE SOD 40 MG DELAYED RELEASE TAB PO SCH (08:57)
[2017-10-26] MEDS: METOPROLOL SUCCINATE 50 MG EXTENDED RELEASE TAB PO SCH (08:57)
[2017-10-26] MEDS: APIXABAN 5 MG TABLET PO SCH ×2 (08:58→21:14)
[2017-10-26] MEDS: metFORMIN HCL 500 MG TAB PO SCH ×2 (08:58→18:47)
[2017-10-26] MEDS ORDERED: ISOSORBIDE MONONITRATE 60 MG CR TAB (IMDUR) PO SCH (09:00)
[2017-10-26] MEDS ORDERED: AMIODARONE 200 MG TAB PO SCH (09:00)
[2017-10-26] MEDS: SODIUM CHLORIDE 0.9% FLUSH 10 ML FLUSH IV FLUSH SCH ×2 (09:00→21:19)
[2017-10-26] MEDS: RANOLAZINE 500 MG EXTENDED RELEASE TAB PO SCH ×2 (09:08→21:15)
[2017-10-26] MEDS: SUCRALFATE 1 GM/10 ML CUP PO SCH ×3 (12:00→21:15)
[2017-10-26] MEDS: POTASSIUM CHLORIDE 20 MEQ CONTROLLED RELEASE TAB PO SCH (15:09)
[2017-10-26] MEDS: FUROSEMIDE 40 MG TAB PO SCH (15:09)
--- NOTE | 2017-10-26 16:41 | HHI.PR ---
Subjective Remarks Feeling better Objective Vital Signs Date Time Temp Pulse Resp B/P (MAP) Pulse Ox O2 Delivery O2 Flow Rate FiO2 10/26/17 16:15 48 10/26/17 16:15 98.4 48 16 94/52 (66) 95 10/26/17 15:00 52 10/26/17 14:00 52 10/26/17 13:00 52 10/26/17 12:00 52 10/26/17 11:31 97.9 62 16 84/51 (62) 94 10/26/17 11:31 95 Room Air 2.00 10/26/17 11:31 62 10/26/17 11:00 58 10/26/17 10:00 60 10/26/17 09:00 64 10/26/17 08:00 74 10/26/17 07:30 98.5 55 16 91/51 (64) 96 10/26/17 07:30 55 10/26/17 07:30 95 Room Air 2.00 10/26/17 04:00 57 10/26/17 04:00 98.0 63 16 98/56 (70) 95 10/26/17 01:59 91/52 (65) 10/26/17 00:00 57 10/26/17 00:00 98.6 64 18 81/48 (59) 94 10/25/17 20:00 98.8 68 16 78/48 (58) 94 10/25/17 20:00 65 10/25/17 20:00 Room Air 10/25/17 18:00 58 10/25/17 17:00 56 I/O 10/25/17 10/25/17 10/25/17 10/26/17 10/26/17 10/26/17 07:00 15:00 23:00 07:00 15:00 23:00 Intake Total 350 ml 250 ml 1020 ml 640 ml Output Total 625 ml 600 ml Balance 350 ml 250 ml 395 ml 40 ml Intake Oral 350 ml 720 ml 640 ml IV Total 250 ml 300 ml Output Urine Total 625 ml 600 ml # Voids 1 # Bowel Movements 1 0 0 Result Diagram: 10/25/17 0411 10/26/17 0606 Imaging Alert, fully oriented Lungs: ventilated Heart: S1, S2 regular, no gallop Abdomen: soft, no mass Ext: no edema Last Impressions Chest X-Ray 10/22/17 0631 Signed Impressions: CONCLUSION: Cardiomegaly with trace pleural effusions and minimal basilar atelectasis. Current Medications Medications (Trade) Dose Ordered Sig/Indu Route Start Time Stop Time Status Last Admin (NS Flush) 2 ml UNSCH PRN IV FLUSH 10/22/17 08:45 (NS Flush) 2 ml BID IV FLUSH 10/22/17 09:00 10/25/17 20:58 (Narcan Inj) 0.4 mg UNSCH PRN IV PUSH 10/22/17 08:45 (Nitrostat Sl) 0.4 mg Q5M PRN SL 10/22/17 08:45 10/26/17 08:55 (Aspirin Chew) 81 mg DAILY CHEW 10/22/17 09:00 10/26/17 08:56 (Lipitor) 10 mg HS PO 10/22/17 21:00 10/25/17 20:58 (Pepcid) 20 mg HS PO 10/22/17 21:00 10/25/17 20:58 (Glucophage) 500 mg BIDPC PO 10/22/17 09:00 10/26/17 08:58 (Oramorph Sr) 60 mg Q8H PO 10/22/17 10:00 10/26/17 09:09 (Percocet 10-325 Mg) 1 tab Q6H PRN PO 10/22/17 08:45 10/24/17 21:13 (Protonix) 40 mg DAILYAC PO 10/23/17 08:00 10/26/17 08:57 (KCl) 20 meq DAILY PO 10/22/17 09:00 10/26/17 15:09 (Ranexa) 1,000 mg Q12HR PO 10/22/17 11:00 10/26/17 09:08 (Carafate Liq) 1 gm ACHS PO 10/22/17 12:00 10/26/17 12:00 Patient Own Medication PT OWN MED: SPIR... DAILY INH 10/23/17 09:00 Future Hold (Toprol Xl) 50 mg DAILY PO 10/23/17 09:00 10/26/17 08:57 (Eliquis) 5 mg BID PO 10/22/17 21:00 10/26/17 08:58 (Pill Splitter) 1 ea UNSCH PRN OTHER 10/22/17 14:00 (Zofran Odt) 4 mg Q6H PRN PO 10/23/17 08:30 10/26/17 04:25 Amiodarone HCl 450 mg/Sodium Chloride 250 ml @ 33.33 mls/ hr Q7H31M PRN IV 10/23/17 15:00 Future Hold 10/24/17 03:08 (Morphine Inj) 2 mg Q4H PRN IV PUSH 10/23/17 16:00 10/23/17 23:13 Esmolol HCl/ Sodium Chloride 250 ml @ 21.3 mls/hr TITRATE PRN IV 10/23/17 18:15 10/23/17 18:39 (Brevibloc Bolus Inj) 35.5 mg BOLUS PRN IV 10/23/17 18:30 10/23/17 18:40 (D50w (Vial) Inj) 50 ml UNSCH PRN IV PUSH 10/24/17 08:15 (Glucagon Inj) 1 mg UNSCH PRN OTHER 10/24/17 08:15 (NovoLOG SUPPLEMENTAL SCALE) 1 ACHS SLIDING SCALE SQ 10/24/17 12:00 10/25/17 12:00 (Cordarone) 200 mg DAILY PO 10/26/17 09:00 10/26/17 15:10 (Lasix) 40 mg DAILY PO 10/26/17 09:00 10/26/17 15:09 (Imdur) 60 mg DAILY PO 10/26/17 09:00 Assessment and Plan Problem List: (1) Atrial fibrillation ICD Codes: I48.91 - Unspecified atrial fibrillation Plan: In sinus rhythm Doing better than yesterday Less SOB If breathing continue to improve, she may be a good candidate for afib ablation in the future For now, can be DH. will be seen as OP in 2-3 weeks then decision will be taken I will be available on a PRN basis (2) COPD (chronic obstructive pulmonary disease) ICD Codes: J44.9 - Chronic obstructive pulmonary disease Status: Acute Plan: Continue to improve (3) HTN (hypertension) ICD Codes: I10 - Essential (primary) hypertension Status: Acute Plan: SBP 94 . asymptomatic Torey Hernandez MD Oct 26, 2017 16:41
--- NOTE | 2017-10-26 17:17 | PD.CARD.PN ---
Subjective Subjective Remarks Asked by Dr. Hernandez to see due to elevated troponin Follow up for Dr. Harper Less weak, feeling better overall Objective Medications Current Medications Medications (Trade) Dose Ordered Sig/Indu Route Start Time Stop Time Status Last Admin (NS Flush) 2 ml UNSCH PRN IV FLUSH 10/22/17 08:45 (NS Flush) 2 ml BID IV FLUSH 10/22/17 09:00 10/25/17 20:58 (Narcan Inj) 0.4 mg UNSCH PRN IV PUSH 10/22/17 08:45 (Nitrostat Sl) 0.4 mg Q5M PRN SL 10/22/17 08:45 10/26/17 08:55 (Aspirin Chew) 81 mg DAILY CHEW 10/22/17 09:00 10/26/17 08:56 (Lipitor) 10 mg HS PO 10/22/17 21:00 10/25/17 20:58 (Pepcid) 20 mg HS PO 10/22/17 21:00 10/25/17 20:58 (Glucophage) 500 mg BIDPC PO 10/22/17 09:00 10/26/17 08:58 (Oramorph Sr) 60 mg Q8H PO 10/22/17 10:00 10/26/17 09:09 (Percocet 10-325 Mg) 1 tab Q6H PRN PO 10/22/17 08:45 10/24/17 21:13 (Protonix) 40 mg DAILYAC PO 10/23/17 08:00 10/26/17 08:57 (KCl) 20 meq DAILY PO 10/22/17 09:00 10/26/17 15:09 (Ranexa) 1,000 mg Q12HR PO 10/22/17 11:00 10/26/17 09:08 (Carafate Liq) 1 gm ACHS PO 10/22/17 12:00 10/26/17 12:00 Patient Own Medication PT OWN MED: SPIR... DAILY INH 10/23/17 09:00 Future Hold (Toprol Xl) 50 mg DAILY PO 10/23/17 09:00 10/26/17 08:57 (Eliquis) 5 mg BID PO 10/22/17 21:00 10/26/17 08:58 (Pill Splitter) 1 ea UNSCH PRN OTHER 10/22/17 14:00 (Zofran Odt) 4 mg Q6H PRN PO 10/23/17 08:30 10/26/17 04:25 Amiodarone HCl 450 mg/Sodium Chloride 250 ml @ 33.33 mls/ hr Q7H31M PRN IV 10/23/17 15:00 Future Hold 10/24/17 03:08 (Morphine Inj) 2 mg Q4H PRN IV PUSH 10/23/17 16:00 10/23/17 23:13 Esmolol HCl/ Sodium Chloride 250 ml @ 21.3 mls/hr TITRATE PRN IV 10/23/17 18:15 10/23/17 18:39 (Brevibloc Bolus Inj) 35.5 mg BOLUS PRN IV 10/23/17 18:30 10/23/17 18:40 (D50w (Vial) Inj) 50 ml UNSCH PRN IV PUSH 10/24/17 08:15 (Glucagon Inj) 1 mg UNSCH PRN OTHER 10/24/17 08:15 (NovoLOG SUPPLEMENTAL SCALE) 1 ACHS SLIDING SCALE SQ 10/24/17 12:00 10/25/17 12:00 (Cordarone) 200 mg DAILY PO 10/26/17 09:00 10/26/17 15:10 (Lasix) 40 mg DAILY PO 10/26/17 09:00 10/26/17 15:09 (Imdur) 60 mg DAILY PO 10/26/17 09:00 Vital Signs / I&O Vital Signs Date Time Temp Pulse Resp B/P (MAP) Pulse Ox O2 Delivery O2 Flow Rate FiO2 10/26/17 16:15 48 10/26/17 16:15 98.4 48 16 94/52 (66) 95 10/26/17 15:00 52 10/26/17 14:00 52 10/26/17 13:00 52 10/26/17 12:00 52 10/26/17 11:31 97.9 62 16 84/51 (62) 94 10/26/17 11:31 95 Room Air 2.00 10/26/17 11:31 62 10/26/17 11:00 58 10/26/17 10:00 60 10/26/17 09:00 64 10/26/17 08:00 74 10/26/17 07:30 98.5 55 16 91/51 (64) 96 10/26/17 07:30 55 10/26/17 07:30 95 Room Air 2.00 10/26/17 04:00 57 10/26/17 04:00 98.0 63 16 98/56 (70) 95 10/26/17 01:59 91/52 (65) 10/26/17 00:00 57 10/26/17 00:00 98.6 64 18 81/48 (59) 94 10/25/17 20:00 98.8 68 16 78/48 (58) 94 10/25/17 20:00 65 10/25/17 20:00 Room Air 10/25/17 18:00 58 I/O 10/25/17 10/25/17 10/25/17 10/26/17 10/26/17 10/26/17 07:00 15:00 23:00 07:00 15:00 23:00 Intake Total 350 ml 250 ml 1020 ml 640 ml Output Total 625 ml 600 ml Balance 350 ml 250 ml 395 ml 40 ml Intake Oral 350 ml 720 ml 640 ml IV Total 250 ml 300 ml Output Urine Total 625 ml 600 ml # Voids 1 # Bowel Movements 1 0 0 Physical Exam GENERAL: NAD, AAOx3 SKIN: Warm and dry. HEAD: Atraumatic. Normocephalic. EYES: Pupils equal and round. No scleral icterus. No injection or drainage. ENT: No nasal bleeding or discharge. Mucous membranes pink and moist. NECK: Trachea midline. No JVD. CARDIOVASCULAR: Regular rate and rhythm. RESPIRATORY: No accessory muscle use. Decreased breath sounds bilaterally GASTROINTESTINAL: Abdomen soft, non-tender, nondistended. Hepatic and splenic margins not palpable. MUSCULOSKELETAL: Extremities without clubbing, cyanosis, or edema. No obvious deformities. NEUROLOGICAL: Awake and alert. No obvious cranial nerve deficits. Motor grossly within normal limits. Five out of 5 muscle strength in the arms and legs. Normal speech. PSYCHIATRIC: Appropriate mood and affect; insight and judgment normal. Laboratory Laboratory Tests Test 10/26/17 06:06 Blood Urea Nitrogen 10 MG/DL Creatinine 0.81 MG/DL Random Glucose 114 MG/DL Calcium Level 8.6 MG/DL Sodium Level 141 MEQ/L Potassium Level 3.7 MEQ/L Chloride Level 103 MEQ/L Carbon Dioxide Level 28.4 MEQ/L Anion Gap 10 MEQ/L Estimat Glomerular Filtration Rate 70 ML/MIN Assessment and Plan Problem List: (1) COPD (chronic obstructive pulmonary disease) ICD Codes: J44.9 - Chronic obstructive pulmonary disease Status: Acute (2) CAD (coronary artery disease) ICD Codes: I25.10 - CAD (coronary artery disease) Status: Acute (3) NSTEMI (non-ST elevated myocardial infarction) ICD Codes: I21.4 - Non-ST elevation (NSTEMI) myocardial infarction (4) Paroxysmal atrial fibrillation with rapid ventricular response ICD Codes: I48.0 - Paroxysmal atrial fibrillation Status: Acute Assessment and Plan 1) NSTEMI Known CAD, most likely combination of CAD and Afib with RVR as chest pain with RVR Reviewed films from cath [address] Gonzalez Overall agree with attempting to treat medically There is left main disease which does supple a diagonal, but intervention would be overall difficult Most likely would impede on small ramus/LCx Diagonal supplied by collaterals from [place] to [place] 2) PAF Seen by Dr. Hernandez Overall high risk for sedation Agree with attempting to try to keep her out of AFib as it potentiates angina /NSTEMI 3) Hypotension Overall stable Continue to follow, seems overall euvolemic Darnell La DO Oct 26, 2017 17:17
--- NOTE | 2017-10-26 17:40 | HHI.PR ---
Subjective Remarks feeling better remain in SR feeling stronger Objective Vitals Vital Signs Date Time Temp Pulse Resp B/P (MAP) Pulse Ox O2 Delivery O2 Flow Rate FiO2 10/26/17 16:15 48 10/26/17 16:15 98.4 48 16 94/52 (66) 95 10/26/17 15:00 52 10/26/17 14:00 52 10/26/17 13:00 52 10/26/17 12:00 52 10/26/17 11:31 97.9 62 16 84/51 (62) 94 10/26/17 11:31 95 Room Air 2.00 10/26/17 11:31 62 10/26/17 11:00 58 10/26/17 10:00 60 10/26/17 09:00 64 10/26/17 08:00 74 10/26/17 07:30 98.5 55 16 91/51 (64) 96 10/26/17 07:30 55 10/26/17 07:30 95 Room Air 2.00 10/26/17 04:00 57 10/26/17 04:00 98.0 63 16 98/56 (70) 95 10/26/17 01:59 91/52 (65) 10/26/17 00:00 57 10/26/17 00:00 98.6 64 18 81/48 (59) 94 10/25/17 20:00 98.8 68 16 78/48 (58) 94 10/25/17 20:00 65 10/25/17 20:00 Room Air 10/25/17 18:00 58 I/O 10/25/17 10/25/17 10/25/17 10/26/17 10/26/17 10/26/17 07:00 15:00 23:00 07:00 15:00 23:00 Intake Total 350 ml 250 ml 1020 ml 640 ml Output Total 625 ml 600 ml Balance 350 ml 250 ml 395 ml 40 ml Intake Oral 350 ml 720 ml 640 ml IV Total 250 ml 300 ml Output Urine Total 625 ml 600 ml # Voids 1 # Bowel Movements 1 0 0 Result Diagram: 10/25/17 0411 10/26/17 0606 Imaging Last Impressions Chest X-Ray 10/22/17 0631 Signed Impressions: CONCLUSION: Cardiomegaly with trace pleural effusions and minimal basilar atelectasis. Objective Remarks awake and alert , oriented 3 anicteric lungs- no rales regular rhythm abdomen soft, nontender extremities no edema A/P Problem List: (1) Chest pain ICD Code: R07.9 - Chest pain, unspecified Status: Acute (2) CAD (coronary artery disease) ICD Code: I25.10 - CAD (coronary artery disease) Status: Chronic Assessment and Plan 72 years old female NSTEMI with known CAD Patient had recent NV on her last hospitalization, discharged only 4 days ago Medical management recommended at that time due to severe vessel disease, history of CABG, history of multiple stents Atrial fibrillation with RVR associated with chest pain, repeat troponins indicate another NV Nitroglycerin as needed, oxygen as needed on BB- Toprol 50 mg XL./Nitrates- Imdur 60 mgd aily- will decrease to 30 mg with borderline BP Appreciate cardiology following- Dr. La Paroxysmal Atrial fibrillation with RVR- now in SR Admitted with this condition, temporarily resolved but returned 10/24 requiring a transferred to CVICU Patient is currently rate controlled after 24 hours with an amiodarone drip Santos won . amiodarone Appreciate cardiology consult, seen by Dr. Hernandez on eliquis Hypotension- imrpoved- up and ambulating - continue to monitor and adjust dosages - Decrease Imdur to 30 mg daily - cardiology ff h/o COPD Continue home medications, stable at this time Type 2 diabetes Sliding scale insulin coverage with Accu-Cheks Diabetic diet DVT prophylaxis Lovenox DC planning- tomorrow if continues to do well and cleared with Cardiology Problem Qualifiers (1) Chest pain: Qualified Codes: R07.2 - Precordial pain (2) CAD (coronary artery disease): Qualified Codes: I25.10 - Atherosclerotic heart disease of [place] coronary artery without angina pectoris Jeffry Prieto MD Oct 26, 2017 17:40
[2017-10-26] MEDS: FAMOTIDINE 20 MG TAB PO SCH (21:15)
[2017-10-26] MEDS: ATORVASTATIN 10 MG TAB PO SCH (21:15)
[2017-10-27] VITALS (20 sets, daily range): BP systolic 89–120; BP diastolic 52–61; PULSE 52–63; RESP 16–20; TEMP 98.3–99.1; O2SAT 94–97
--- NOTE | 2017-10-27 08:22 | PD.CARD.PN ---
Subjective Subjective Remarks Denies CP, dyspnea, dizziness, palpitations. Fatigued. Objective Medications Item Value Date Time Amiodarone HCl 200 mg 10/26/17 0900 (Cordarone) DAILY/PO 10/26/17 1510 Isosorbide 30 mg 10/27/17 0900 Mononitrate DAILY/PO (Imdur) Metoprolol 50 mg 10/23/17 0900 Succinate DAILY/PO 10/26/17 0857 (Toprol Xl) Potassium Chloride 20 meq 10/22/17 0900 (KCl) DAILY/PO 10/26/17 1509 Aspirin 81 mg 10/22/17 0900 (Aspirin Chew) DAILY/CHEW 10/26/17 0856 Ranolazine 1,000 mg 10/22/17 1100 (Ranexa) Q12HR/PO 10/26/172114 Apixaban 5 mg 10/22/172099 (Eliquis) BID/PO 10/26/172113 Atorvastatin 10 mg 10/22/172099 Calcium HS/PO 10/26/172114 (Lipitor) Current Medications Medications (Trade) Dose Ordered Sig/Indu Route Start Time Stop Time Status Last Admin (NS Flush) 2 ml UNSCH PRN IV FLUSH 10/22/17 08:45 (NS Flush) 2 ml BID IV FLUSH 10/22/17 09:00 10/26/17 21:19 (Narcan Inj) 0.4 mg UNSCH PRN IV PUSH 10/22/17 08:45 (Nitrostat Sl) 0.4 mg Q5M PRN SL 10/22/17 08:45 10/26/17 08:55 (Aspirin Chew) 81 mg DAILY CHEW 10/22/17 09:00 10/26/17 08:56 (Lipitor) 10 mg HS PO 10/22/17 21:00 10/26/17 21:15 (Pepcid) 20 mg HS PO 10/22/17 21:00 10/26/17 21:15 (Glucophage) 500 mg BIDPC PO 10/22/17 09:00 10/26/17 18:47 (Oramorph Sr) 60 mg Q8H PO 10/22/17 10:00 10/26/17 18:47 (Percocet 10-325 Mg) 1 tab Q6H PRN PO 10/22/17 08:45 10/24/17 21:13 (Protonix) 40 mg DAILYAC PO 10/23/17 08:00 10/26/17 08:57 (KCl) 20 meq DAILY PO 10/22/17 09:00 10/26/17 15:09 (Ranexa) 1,000 mg Q12HR PO 10/22/17 11:00 10/26/17 21:15 (Carafate Liq) 1 gm ACHS PO 10/22/17 12:00 10/26/17 21:15 Patient Own Medication PT OWN MED: SPIR... DAILY INH 10/23/17 09:00 Future Hold (Toprol Xl) 50 mg DAILY PO 10/23/17 09:00 10/26/17 08:57 (Eliquis) 5 mg BID PO 10/22/17 21:00 10/26/17 21:14 (Pill Splitter) 1 ea UNSCH PRN OTHER 10/22/17 14:00 (Zofran Odt) 4 mg Q6H PRN PO 10/23/17 08:30 10/26/17 04:25 Amiodarone HCl 450 mg/Sodium Chloride 250 ml @ 33.33 mls/ hr Q7H31M PRN IV 10/23/17 15:00 Future Hold 10/24/17 03:08 (Morphine Inj) 2 mg Q4H PRN IV PUSH 10/23/17 16:00 10/23/17 23:13 Esmolol HCl/ Sodium Chloride 250 ml @ 21.3 mls/hr TITRATE PRN IV 10/23/17 18:15 10/23/17 18:39 (Brevibloc Bolus Inj) 35.5 mg BOLUS PRN IV 10/23/17 18:30 10/23/17 18:40 (D50w (Vial) Inj) 50 ml UNSCH PRN IV PUSH 10/24/17 08:15 (Glucagon Inj) 1 mg UNSCH PRN OTHER 10/24/17 08:15 (NovoLOG SUPPLEMENTAL SCALE) 1 ACHS SLIDING SCALE SQ 10/24/17 12:00 10/26/17 21:15 (Cordarone) 200 mg DAILY PO 10/26/17 09:00 10/26/17 15:10 (Lasix) 40 mg DAILY PO 10/26/17 09:00 10/26/17 15:09 (Imdur) 30 mg DAILY PO 10/27/17 09:00 Vital Signs / I&O Vital Signs Date Time Temp Pulse Resp B/P (MAP) Pulse Ox O2 Delivery O2 Flow Rate FiO2 10/27/17 03:00 54 10/27/17 03:00 98.3 52 16 111/60 (77) 97 10/26/17 23:00 99.0 54 18 83/50 (61) 100 10/26/17 23:00 55 10/26/17 19:00 96 Nasal Cannula 2.00 10/26/17 19:00 98.3 61 18 85/52 (63) 96 10/26/17 19:00 81 10/26/17 18:00 60 10/26/17 17:00 56 10/26/17 16:15 48 10/26/17 16:15 98.4 48 16 94/52 (66) 95 10/26/17 15:00 52 10/26/17 14:00 52 10/26/17 13:00 52 10/26/17 12:00 52 10/26/17 11:31 97.9 62 16 84/51 (62) 94 10/26/17 11:31 95 Room Air 2.00 10/26/17 11:31 62 10/26/17 11:00 58 10/26/17 10:00 60 10/26/17 09:00 64 I/O 10/26/17 10/26/17 10/26/17 10/27/17 10/27/17 10/27/17 07:00 15:00 23:00 07:00 15:00 23:00 Intake Total 640 ml 720 ml 360 ml Output Total 600 ml 350 ml Balance 40 ml 370 ml 360 ml Intake Oral 640 ml 720 ml 360 ml Output Urine Total 600 ml 350 ml # Voids 2 # Bowel Movements 0 0 0 Physical Exam GENERAL: Well developed, well nourished. No acute distress. HEENT: Jugular venous pressure is normal. CHEST: Lungs clear to auscultation bilaterally. Unlabored respiratory effort. CARDIAC: Bradycardic regular rhythm without S3, S4, or murmur. ABDOMEN: Soft, nontender, no hepatosplenomegaly. Bowel sounds present. EXTREMITIES: No clubbing, cyanosis, or edema. Assessment and Plan Problem List: (1) CAD (coronary artery disease) ICD Codes: I25.10 - CAD (coronary artery disease) Status: Chronic Plan: Stable overnight. No further angina. Recent cath results noted. To continue medical therapy. Continue beta cordell, Ranexa, aspirin. (2) Paroxysmal atrial fibrillation with rapid ventricular response ICD Codes: I48.0 - Paroxysmal atrial fibrillation Status: Acute Plan: Remains in sinus rhythm. Mildly bradycardic. Mildly hypotensive last night. Rec continue oral Amiodarone, metoprolol (reduce dose) continue apixaban Code Status full code Discussed Condition With patient Problem Qualifiers (1) CAD (coronary artery disease): Qualified Codes: I25.10 - Atherosclerotic heart disease of [place] coronary artery without angina pectoris Kenneth Bales MD Oct 27, 2017 08:22
[2017-10-27] MEDS: PANTOPRAZOLE SOD 40 MG DELAYED RELEASE TAB PO SCH (09:06)
[2017-10-27] MEDS: APIXABAN 5 MG TABLET PO SCH ×2 (09:07→21:45)
[2017-10-27] MEDS: ASPIRIN 81 MG CHEW TAB CHEW SCH (09:07)
[2017-10-27] MEDS: FUROSEMIDE 40 MG TAB PO SCH (09:08)
[2017-10-27] MEDS: metFORMIN HCL 500 MG TAB PO SCH ×2 (09:08→18:11)
[2017-10-27] MEDS: POTASSIUM CHLORIDE 20 MEQ CONTROLLED RELEASE TAB PO SCH (09:08)
[2017-10-27] MEDS: ISOSORBIDE MONONITRATE 30 MG CR TAB (IMDUR) PO SCH (09:09)
[2017-10-27] MEDS: RANOLAZINE 500 MG EXTENDED RELEASE TAB PO SCH ×2 (09:10→21:47)
[2017-10-27] MEDS: SODIUM CHLORIDE 0.9% FLUSH 10 ML FLUSH IV FLUSH SCH ×2 (09:11→21:48)
[2017-10-27] MEDS: MORPHINE SULFATE 4 MG/ML INJ IV PUSH PRN (09:15)
[2017-10-27] MEDS: INSULIN ASPART SUPPLEMENTAL SCALE SQ SCH ×4 (09:29→21:20)
[2017-10-27] MEDS: AMIODARONE 200 MG TAB PO SCH (09:30)
[2017-10-27] MEDS: SUCRALFATE 1 GM/10 ML CUP PO SCH ×4 (09:30→21:48)
[2017-10-27] MEDS: METOPROLOL SUCCINATE 50 MG EXTENDED RELEASE TAB PO SCH (12:22)
[2017-10-27] MEDS: MORPHINE SULFATE 60 MG CONTROLLED RELEASE TAB PO SCH ×2 (12:23→18:11)
--- NOTE | 2017-10-27 15:35 | HHI.PR ---
Subjective Remarks no complains except feels hot and sweaty no urinary symptoms, no cough up and ambulating telemetry - SR- HR 60s Objective Vitals Vital Signs Date Time Temp Pulse Resp B/P (MAP) Pulse Ox O2 Delivery O2 Flow Rate FiO2 10/27/17 14:00 54 10/27/17 13:00 54 10/27/17 12:00 55 10/27/17 11:00 57 10/27/17 11:00 99.1 57 16 101/56 (71) 95 10/27/17 10:00 55 10/27/17 09:00 56 10/27/17 08:00 55 10/27/17 07:00 52 10/27/17 07:00 99.0 52 16 111/58 (75) 95 10/27/17 07:00 95 Room Air 10/27/17 03:00 54 10/27/17 03:00 98.3 52 16 111/60 (77) 97 10/26/17 23:00 99.0 54 18 83/50 (61) 100 10/26/17 23:00 55 10/26/17 19:00 96 Nasal Cannula 2.00 10/26/17 19:00 98.3 61 18 85/52 (63) 96 10/26/17 19:00 81 10/26/17 18:00 60 10/26/17 17:00 56 10/26/17 16:15 48 10/26/17 16:15 98.4 48 16 94/52 (66) 95 I/O 10/26/17 10/26/17 10/26/17 10/27/17 10/27/17 10/27/17 07:00 15:00 23:00 07:00 15:00 23:00 Intake Total 640 ml 720 ml 360 ml Output Total 600 ml 350 ml Balance 40 ml 370 ml 360 ml Intake Oral 640 ml 720 ml 360 ml Output Urine Total 600 ml 350 ml # Voids 2 # Bowel Movements 0 0 0 Result Diagram: 10/25/1741010/26/17 0606 Objective Remarks awake and alert , oriented 3 anicteric lungs- no rales regular rhythm abdomen soft, nontender extremities no edema A/P Problem List: (1) Chest pain ICD Code: R07.9 - Chest pain, unspecified Status: Acute (2) CAD (coronary artery disease) ICD Code: I25.10 - CAD (coronary artery disease) Status: Chronic Assessment and Plan 72 years old female NSTEMI with known CAD Patient had recent [place] on her last hospitalization, discharged only 4 days ago Medical management recommended at that time due to severe vessel disease, history of CABG, history of multiple stents Nitroglycerin as needed, oxygen as needed on BB- Toprol 50 mg XL- dose down to 25 mg XL daily /Nitrates- Imdur 60 mgd aily- will decrease to 30 mg with borderline BP Appreciate cardiology following- Dr. La Paroxysmal Atrial fibrillation with RVR- now in SR Admitted with this condition, temporarily resolved but returned 10/24 requiring a transferred to CVICU Patient is currently rate controlled after 24 hours with an amiodarone drip amiodarone - up to 400 mg daily Appreciate cardiology consult, seen by Dr. Hernandez on eliquis Hypotension- imrpoved- up and ambulating - continue to monitor and adjust dosages - cardiology ff h/o COPD Continue home medications, stable at this time Type 2 diabetes Sliding scale insulin coverage with Accu-Cheks Diabetic diet DVT prophylaxis Lovenox DC planning- if cleared with cardiology Problem Qualifiers (1) Chest pain: Qualified Codes: R07.2 - Precordial pain (2) CAD (coronary artery disease): Qualified Codes: I25.10 - Atherosclerotic heart disease of [place] coronary artery without angina pectoris Jeffry Prieto MD Oct 27, 2017 15:35
[2017-10-27 17:02] LABS: AUTOMATED NEUTROPHIL # 5.7 TH/MM3 (1.8-7.7); BASOPHIL % 0.3 % (0.0-2.0); EOSINOPHIL # 0.1 TH/MM3 (0-0.4); EOSINOPHIL % 1.4 % (0.0-4.0); HEMATOCRIT 40.3 % (35.0-46.0); HEMOGLOBIN 13.5 GM/DL (11.6-15.3); LYMPHOCYTE # 1.3 TH/MM3 (1.0-4.8); MEAN CELL VOLUME 85.1 FL (80.0-100.0); MEAN CORPUSCULAR HEMOGLOBIN 28.5 PG (27.0-34.0); MEAN CORPUSCULAR HGB CONC 33.5 % (32.0-36.0); MEAN PLATELET VOLUME 8.2 FL (7.0-11.0); MONO % 6.1 % (0.0-8.0); MONOCYTE # 0.5 TH/MM3 (0-0.9); NEUT % 75.2 % (16.0-70.0); PLATELET COUNT 120 TH/MM3 (150-450); RED BLOOD COUNT 4.73 MIL/MM3 (4.00-5.30); RED CELL DISTRIBUTION WIDTH 15.2 % (11.6-17.2); WHITE BLOOD COUNT 7.5 TH/MM3 (4.0-11.0)
[2017-10-27 21:08] LABS: BILIRUBIN, URINE NEG (NEG); BLOOD, URINE NEG (NEG); GLUCOSE,URINE NEG (NEG); KETONE, URINE NEG (NEG); MUCUS URINE FEW /lpf (OCC); NITRITE,URINE NEG (NEG); SQUAMOUS EPITHELIAL CELL URINE 2 /hpf (0-5); URINE COLOR Amber (YELLW/STRAW); URINE LEUKOCYTE ESTERASE NEG (NEG)
[2017-10-27] MEDS: FAMOTIDINE 20 MG TAB PO SCH (21:45)
[2017-10-27] MEDS: ATORVASTATIN 10 MG TAB PO SCH (21:46)
[2017-10-28] VITALS (25 sets, daily range): BP systolic 92–116; BP diastolic 54–61; PULSE 49–83; RESP 16–19; TEMP 98–98.7; O2SAT 58–98
[2017-10-28] MEDS: MORPHINE SULFATE 60 MG CONTROLLED RELEASE TAB PO SCH ×3 (02:45→16:57)
[2017-10-28] MEDS: SUCRALFATE 1 GM/10 ML CUP PO SCH ×4 (08:24→21:19)
[2017-10-28] MEDS: INSULIN ASPART SUPPLEMENTAL SCALE SQ SCH ×5 (08:26→21:00)
[2017-10-28] MEDS: PANTOPRAZOLE SOD 40 MG DELAYED RELEASE TAB PO SCH ×2 (08:26→09:52)
--- NOTE | 2017-10-28 09:04 | PD.CARD.PN ---
Subjective Subjective Remarks Denies CP, dyspnea, dizziness, palpitations. Fatigued, no change. Slept poorly. Objective Medications Item Value Date Time Isosorbide 30 mg 10/27/17 0900 Mononitrate DAILY/PO 10/27/17 0909 (Imdur) Amiodarone HCl 400 mg 10/27/17 0900 (Cordarone) DAILY/PO 10/27/17 0930 Metoprolol 25 mg 10/27/17 0900 Succinate DAILY/PO 10/27/17 1222 (Toprol Xl) Furosemide 40 mg 10/26/17 0900 (Lasix) DAILY/PO 10/27/17 0908 Atorvastatin 10 mg 10/22/17 2100 Calcium HS/PO 10/27/17 214 (Lipitor) Apixaban 5 mg 10/22/17 2100 (Eliquis) BID/PO 10/27/172144 Ranolazine 1,000 mg 10/22/17 1100 (Ranexa) Q12HR/PO 10/27/172146 Aspirin 81 mg 10/22/17 09 (Aspirin Chew) DAILY/CHEW 10/27/17 09 Current Medications Medications (Trade) Dose Ordered Sig/Indu Route Start Time Stop Time Status Last Admin (NS Flush) 2 ml UNSCH PRN IV FLUSH 10/22/17 08:45 (NS Flush) 2 ml BID IV FLUSH 10/22/17 09:00 10/27/17 21:48 (Narcan Inj) 0.4 mg UNSCH PRN IV PUSH 10/22/17 08:45 (Nitrostat Sl) 0.4 mg Q5M PRN SL 10/22/17 08:45 10/26/17 08:55 (Aspirin Chew) 81 mg DAILY CHEW 10/22/17 09:00 10/27/17 09:07 (Lipitor) 10 mg HS PO 10/22/17 21:00 10/27/17 21:46 (Pepcid) 20 mg HS PO 10/22/17 21:00 10/27/17 21:45 (Glucophage) 500 mg BIDPC PO 10/22/17 09:00 10/27/17 18:11 (Oramorph Sr) 60 mg Q8H PO 10/22/17 10:00 10/28/17 02:45 (Percocet 10-325 Mg) 1 tab Q6H PRN PO 10/22/17 08:45 10/24/17 21:13 (Protonix) 40 mg DAILYAC PO 10/23/17 08:00 10/28/17 08:26 (KCl) 20 meq DAILY PO 10/22/17 09:00 10/27/17 09:08 (Ranexa) 1,000 mg Q12HR PO 10/22/17 11:00 10/27/17 21:47 (Carafate Liq) 1 gm ACHS PO 10/22/17 12:00 10/27/17 21:48 Patient Own Medication PT OWN MED: SPIR... DAILY INH 10/23/17 09:00 Future Hold (Eliquis) 5 mg BID PO 10/22/17 21:00 10/27/17 21:45 (Pill Splitter) 1 ea UNSCH PRN OTHER 10/22/17 14:00 (Zofran Odt) 4 mg Q6H PRN PO 10/23/17 08:30 10/26/17 04:25 Amiodarone HCl 450 mg/Sodium Chloride 250 ml @ 33.33 mls/ hr Q7H31M PRN IV 10/23/17 15:00 Future Hold 10/24/17 03:08 (Morphine Inj) 2 mg Q4H PRN IV PUSH 10/23/17 16:00 10/27/17 09:15 Esmolol HCl/ Sodium Chloride 250 ml @ 21.3 mls/hr TITRATE PRN IV 10/23/17 18:15 10/23/17 18:39 (Brevibloc Bolus Inj) 35.5 mg BOLUS PRN IV 10/23/17 18:30 10/23/17 18:40 (D50w (Vial) Inj) 50 ml UNSCH PRN IV PUSH 10/24/17 08:15 (Glucagon Inj) 1 mg UNSCH PRN OTHER 10/24/17 08:15 (NovoLOG SUPPLEMENTAL SCALE) 1 ACHS SLIDING SCALE SQ 10/24/17 12:00 10/28/17 08:26 (Lasix) 40 mg DAILY PO 10/26/17 09:00 10/27/17 09:08 (Imdur) 30 mg DAILY PO 10/27/17 09:00 10/27/17 09:09 (Cordarone) 400 mg DAILY PO 10/27/17 09:00 10/27/17 09:30 (Toprol Xl) 25 mg DAILY PO 10/27/17 09:00 10/27/17 12:22 Vital Signs / I&O Vital Signs Date Time Temp Pulse Resp B/P (MAP) Pulse Ox O2 Delivery O2 Flow Rate FiO2 10/28/17 08:00 54 10/28/17 07:00 98.0 63 18 105/61 (76) 97 10/28/17 07:00 97 Room Air 10/28/17 07:00 63 10/28/17 06:06 83 10/28/17 05:21 58 10/28/17 04:00 60 10/28/17 03:54 17 10/28/17 03:35 98.2 58 19 96/57 (70) 58 10/28/17 03:00 52 10/28/17 02:00 54 10/28/17 01:00 56 10/28/17 00:00 65 10/27/17 23:11 98.4 55 19 89/52 (64) 95 10/27/17 23:00 52 10/27/17 22:00 58 10/27/17 21:00 56 10/27/17 20:00 59 10/27/17 19:31 94 Room Air 10/27/17 19:31 98.4 61 20 99/59 (72) 94 10/27/17 19:00 58 10/27/17 18:00 59 10/27/17 17:00 57 10/27/17 16:00 53 10/27/17 15:00 56 10/27/17 15:00 98.8 63 18 120/61 (80) 96 10/27/17 14:00 54 10/27/17 13:00 54 10/27/17 12:00 55 10/27/17 11:00 57 10/27/17 11:00 99.1 57 16 101/56 (71) 95 10/27/17 10:00 55 I/O 10/27/17 10/27/17 10/27/17 10/28/17 10/28/17 10/28/17 07:00 15:00 23:00 07:00 15:00 23:00 Intake Total 360 ml 960 ml 570 ml Output Total 900 ml 650 ml Balance 360 ml 60 ml -80 ml Intake Oral 360 ml 960 ml 570 ml Output Urine Total 900 ml 650 ml # Voids 2 # Bowel Movements 0 1 Physical Exam GENERAL: Well developed, well nourished. No acute distress. HEENT: Jugular venous pressure is normal. CHEST: Diminished breath sounds diffusely. CARDIAC: Regular rhythm without S3, S4, or murmur. ABDOMEN: Soft, nontender, no hepatosplenomegaly. Bowel sounds present. EXTREMITIES: No clubbing, cyanosis, or edema. Laboratory Laboratory Tests Test 10/27/17 16:29 10/27/17 19:48 White Blood Count 7.5 TH/MM3 Red Blood Count 4.73 MIL/MM3 Hemoglobin 13.5 GM/DL Hematocrit 40.3 % Mean Corpuscular Volume 85.1 FL Mean Corpuscular Hemoglobin 28.5 PG Mean Corpuscular Hemoglobin Concent 33.5 % Red Cell Distribution Width 15.2 % Platelet Count 120 TH/MM3 Mean Platelet Volume 8.2 FL Neutrophils (%) (Auto) 75.2 % Lymphocytes (%) (Auto) 17.0 % Monocytes (%) (Auto) 6.1 % Eosinophils (%) (Auto) 1.4 % Basophils (%) (Auto) 0.3 % Neutrophils # (Auto) 5.7 TH/MM3 Lymphocytes # (Auto) 1.3 TH/MM3 Monocytes # (Auto) 0.5 TH/MM3 Eosinophils # (Auto) 0.1 TH/MM3 Basophils # (Auto) 0.0 TH/MM3 CBC Comment DIFF FINAL Differential Comment Urine Color Jennifer Urine Turbidity CLEAR Urine pH 6.0 Urine Specific [place] 1.014 Urine Protein NEG mg/dL Urine Glucose (UA) NEG mg/dL Urine Ketones NEG mg/dL Urine Occult Blood NEG Urine Nitrite NEG Urine Bilirubin NEG Urine Urobilinogen 2.0 mg/dL Urine Leukocyte Esterase NEG Urine RBC 1 /hpf Urine WBC 1 /hpf Urine Squamous Epithelial Cells 2 /hpf Urine Mucus FEW /lpf Microscopic Urinalysis Comment CULT NOT INDICATED Assessment and Plan Problem List: (1) CAD (coronary artery disease) ICD Codes: I25.10 - CAD (coronary artery disease) Status: Chronic Plan: Stable over the weekend. No further angina. Recent cath results noted. To continue medical therapy. Continue beta cordell, Ranexa, aspirin. OK for discharge tomorrow, f/u with Dr. Harper as outpatient in 3-4 weeks. (2) Paroxysmal atrial fibrillation with rapid ventricular response ICD Codes: I48.0 - Paroxysmal atrial fibrillation Status: Acute Plan: Remains in sinus rhythm on oral Amiodarone. Rec continue oral Amiodarone, metoprolol; discharge dose of Amiodarone should be 200 mg qd continue apixaban Code Status full code Discussed Condition With patient Problem Qualifiers (1) CAD (coronary artery disease): Qualified Codes: I25.10 - Atherosclerotic heart disease of [place] coronary artery without angina pectoris Kenneth Bales MD Oct 28, 2017 09:04
[2017-10-28] MEDS: SODIUM CHLORIDE 0.9% FLUSH 10 ML FLUSH IV FLUSH SCH ×2 (09:48→21:19)
[2017-10-28] MEDS: RANOLAZINE 500 MG EXTENDED RELEASE TAB PO SCH ×2 (09:49→21:19)
[2017-10-28] MEDS: ISOSORBIDE MONONITRATE 30 MG CR TAB (IMDUR) PO SCH (09:50)
[2017-10-28] MEDS: metFORMIN HCL 500 MG TAB PO SCH ×2 (09:50→16:57)
[2017-10-28] MEDS: AMIODARONE 200 MG TAB PO SCH (09:51)
[2017-10-28] MEDS: ASPIRIN 81 MG CHEW TAB CHEW SCH (09:51)
[2017-10-28] MEDS: METOPROLOL SUCCINATE 50 MG EXTENDED RELEASE TAB PO SCH (09:51)
[2017-10-28] MEDS: APIXABAN 5 MG TABLET PO SCH ×2 (09:52→21:19)
[2017-10-28] MEDS: POTASSIUM CHLORIDE 20 MEQ CONTROLLED RELEASE TAB PO SCH (09:52)
[2017-10-28] MEDS: FUROSEMIDE 40 MG TAB PO SCH (09:52)
[2017-10-28] MEDS: oxyCODONE/ACETAMINOPHEN 10 MG/325 MG TAB PO PRN ×2 (12:50→19:44)
[2017-10-28] MEDS ORDERED: AMIO200T PO (13:41)
--- NOTE | 2017-10-28 13:50 | HHI.PR ---
Subjective Remarks awake and alert no complains feels stronger up and ambulating telemetry- SR- HR in the 50s Objective Vitals Vital Signs Date Time Temp Pulse Resp B/P (MAP) Pulse Ox O2 Delivery O2 Flow Rate FiO2 10/28/17 13:00 58 10/28/17 12:00 50 10/28/17 11:00 98.2 58 16 116/56 (76) 98 10/28/17 11:00 57 10/28/17 10:00 52 10/28/17 09:00 65 10/28/17 08:00 54 10/28/17 07:00 98.0 63 18 105/61 (76) 97 10/28/17 07:00 97 Room Air 10/28/17 07:00 63 10/28/17 06:06 83 10/28/17 05:21 58 10/28/17 04:00 60 10/28/17 03:54 17 10/28/17 03:35 98.2 58 19 96/57 (70) 58 10/28/17 03:00 52 10/28/17 02:00 54 10/28/17 01:00 56 10/28/17 00:00 65 10/27/17 23:11 98.4 55 19 89/52 (64) 95 10/27/17 23:00 52 10/27/17 22:00 58 10/27/17 21:00 56 10/27/17 20:00 59 10/27/17 19:31 94 Room Air 10/27/17 19:31 98.4 61 20 99/59 (72) 94 10/27/17 19:00 58 10/27/17 18:00 59 10/27/17 17:00 57 10/27/17 16:00 53 10/27/17 15:00 56 10/27/17 15:00 98.8 63 18 120/61 (80) 96 10/27/17 14:00 54 I/O 10/27/17 10/27/17 10/27/17 10/28/17 10/28/17 10/28/17 07:00 15:00 23:00 07:00 15:00 23:00 Intake Total 360 ml 960 ml 570 ml Output Total 900 ml 650 ml Balance 360 ml 60 ml -80 ml Intake Oral 360 ml 960 ml 570 ml Output Urine Total 900 ml 650 ml # Voids 2 # Bowel Movements 0 1 Result Diagram: 10/27/17 1629 10/26/17 0606 Imaging Last Impressions Chest X-Ray 10/22/17 0631 Signed Impressions: CONCLUSION: Cardiomegaly with trace pleural effusions and minimal basilar atelectasis. Objective Remarks awake and alert , oriented 3 anicteric lungs- no rales regular rhythm abdomen soft, nontender extremities no edema A/P Problem List: (1) Chest pain ICD Code: R07.9 - Chest pain, unspecified Status: Acute (2) CAD (coronary artery disease) ICD Code: I25.10 - CAD (coronary artery disease) Status: Chronic Assessment and Plan 72 years old female NSTEMI with known CAD Patient had recent SD on her last hospitalization, discharged only 4 days ago Medical management recommended at that time due to severe vessel disease, history of CABG, history of multiple stents Nitroglycerin as needed, oxygen as needed on BB- Toprol 50 mg XL- dose down to 25 mg XL daily /Nitrates- Imdur 30 mg with Appreciate cardiology following- Paroxysmal Atrial fibrillation with RVR- now in SR- HR in the 50s Admitted with this condition, temporarily resolved but returned 10/24 requiring a transferred to CVICU amiodarone 200 mg daily per cardio recommendations Appreciate cardiology consult, seen by Dr. Hernandez- plan for EP study on eliquis Hypotension- improved- up and ambulating - continue to monitor and adjust dosages - cardiology ff h/o COPD - good sats at room air Continue home medications, stable at this time Type 2 diabetes Sliding scale insulin coverage with Accu-Cheks Diabetic diet resume meds at home DVT prophylaxis Lovenox DC planning once cleared with cardiology CM consul for home health care arrangement PCP- Dr. Davison Problem Qualifiers (1) Chest pain: Qualified Codes: R07.2 - Precordial pain (2) CAD (coronary artery disease): Qualified Codes: I25.10 - Atherosclerotic heart disease of [place] coronary artery without angina pectoris Jeffry Prieto MD Oct 28, 2017 13:50
--- NOTE | 2017-10-28 13:52 | HHI.FF ---
Face to Face Verification Diagnosis: (1) Paroxysmal atrial fibrillation with rapid ventricular response (2) Chronic pain (3) COPD (chronic obstructive pulmonary disease) (4) DM (diabetes mellitus) Physical Therapy Order: Evaluate and Treat Home Health Nursing Order: Medical education Signs/symptoms of disease process Nursing assessment with vital signs Regrader Order: To Evaluate: Living conditions/environment, Support services I have seen patient Olive Small on 10/28/17. My clinical findings support the need for the requested home health care services because: Need for psychosocial assistance I certify that my clinical findings support that this patient is homebound because: Hx COPD- exertion dyspnea/weakness Jeffry Prieto MD Oct 28, 2017 13:52
[2017-10-28] MEDS ORDERED: ISOS30TA3 PO (13:58)
[2017-10-28] MEDS: ONDANSETRON ODT 4 MG TAB PO PRN (21:01)
[2017-10-28] MEDS: ATORVASTATIN 10 MG TAB PO SCH (21:19)
[2017-10-28] MEDS: FAMOTIDINE 20 MG TAB PO SCH (21:19)
[2017-10-29] VITALS (25 sets, daily range): BP systolic 90–131; BP diastolic 52–73; PULSE 48–65; RESP 18–20; TEMP 98.1–98.4; O2SAT 91–95
[2017-10-29] MEDS: MORPHINE SULFATE 60 MG CONTROLLED RELEASE TAB PO SCH ×3 (01:28→17:36)
[2017-10-29] MEDS: oxyCODONE/ACETAMINOPHEN 10 MG/325 MG TAB PO PRN ×2 (06:32→16:31)
[2017-10-29] MEDS ORDERED: FURO40TA PO (07:23)
[2017-10-29] MEDS ORDERED: APIX5TAB PO (07:23)
--- NOTE | 2017-10-29 07:58 | HHI.DS ---
Discharge Summary Admitting Diagnosis CBC/BMP: 10/27/17 1629 10/26/17 0606 Significant Findings Imaging Discharge Instructions Follow up Referrals: Cardiology - 2 Weeks with Arnel Harper MD PCP Follow-up - 1 Week with THERESA New Medications: Apixaban (Eliquis) 5 Mg Tab 5 MG PO BID for Pafib for 30 Days, #60 TAB 6 Refills Furosemide (Furosemide) 40 Mg Tab 40 MG PO DAILY for CARD for 30 Days, #30 TAB Isosorbide Mononitrate ER (Isosorbide Mononitrate ER) 30 Mg Surendra 30 MG PO DAILY for Chest Pain for 30 Days, #30 TAB Continued Medications: Aspirin (Aspirin) 81 Mg Chew 81 MG CHEW DAILY, TAB 0 Refills Atorvastatin (Atorvastatin) 10 Mg Tab 10 MG PO HS for Cholesterol Management, #30 TAB 0 Refills Famotidine (Famotidine) 20 Mg Tab 20 MG PO HS for abdominal pain for 30 Days, #30 TAB Metformin (Metformin) 500 Mg Tab 500 MG PO BIDPC for Blood Sugar Management, #60 TAB 0 Refills Metoprolol Succinate ER 24 HR (Metoprolol Succinate ER 24 HR) 25 Mg Tab 25 MG PO DAILY, #30 TAB 0 Refills Morphine ER (Morphine ER) 60 Mg Tab 60 MG PO Q8H for Pain Management for 30 Days, #90 TAB 0 Refills Oxygen (O2) (Oxygen (O2)) Device LITER HARJEET.CANULA CONTINUOUS for Prevent Hypoxemia, #2 Oxygen Concentrator Portable Gaseous 2 L/min via Nasal Canula Continuous For 99 months Pantoprazole (Pantoprazole) 40 Mg Tab 40 MG PO DAILYAC for abdominal pain for 30 Days, #30 TAB Potassium Chloride ER (Potassium Chloride ER) 20 Meq Tab 20 MEQ PO DAILY for Electrolyte Replacement, #30 TAB 0 Refills Ranolazine ER 12 HR (Ranexa ER 12 HR) 500 Mg Tab 1000 MG PO Q12HR for Angina for 30 Days, #60 TAB Sucralfate Liq (Sucralfate Liq) 1 Gram/10 Ml [place] 1 GM PO ACHS for abdominal pain for 30 Days, #120 ML 0 Refills Tiotropium Inh (Spiriva Respimat Inh) 2.5 Mcg/Act Aero 2 PUFF INH DAILY for COPD, #1 INHALER 0 Refills 2.5 mcg = 1 inhalation Discontinued Medications: Furosemide (Furosemide) 40 Mg Tab 40 MG PO BID@09,18 for CHF for 30 Days, #60 TAB Isosorbide Mononitrate ER (Isosorbide Mononitrate ER) 60 Mg Tab 60 MG PO BID@0700,2100 for angina for 30 Days, #60 TAB Jeffry Prieto MD Oct 29, 2017 07:58
[2017-10-29] MEDS: SUCRALFATE 1 GM/10 ML CUP PO SCH ×4 (08:00→21:39)
[2017-10-29] MEDS: INSULIN ASPART SUPPLEMENTAL SCALE SQ SCH ×4 (08:00→21:00)
[2017-10-29] MEDS: ASPIRIN 81 MG CHEW TAB CHEW SCH (08:43)
[2017-10-29] MEDS: AMIODARONE 200 MG TAB PO SCH (08:44)
[2017-10-29] MEDS: APIXABAN 5 MG TABLET PO SCH (08:44)
[2017-10-29] MEDS: ISOSORBIDE MONONITRATE 30 MG CR TAB (IMDUR) PO SCH (08:45)
[2017-10-29] MEDS: metFORMIN HCL 500 MG TAB PO SCH ×2 (08:45→17:36)
[2017-10-29] MEDS: METOPROLOL SUCCINATE 50 MG EXTENDED RELEASE TAB PO SCH (08:45)
[2017-10-29] MEDS: POTASSIUM CHLORIDE 20 MEQ CONTROLLED RELEASE TAB PO SCH (08:46)
[2017-10-29] MEDS: RANOLAZINE 500 MG EXTENDED RELEASE TAB PO SCH ×2 (08:46→21:39)
[2017-10-29] MEDS: FUROSEMIDE 40 MG TAB PO SCH (08:46)
[2017-10-29] MEDS: SODIUM CHLORIDE 0.9% FLUSH 10 ML FLUSH IV FLUSH SCH ×2 (08:52→21:40)
--- NOTE | 2017-10-29 09:17 | PD.CARD.PN ---
Subjective Subjective Remarks Ambulating OK. A little lightheaded. Objective Medications Current Medications Medications (Trade) Dose Ordered Sig/Indu Route Start Time Stop Time Status Last Admin (NS Flush) 2 ml UNSCH PRN IV FLUSH 10/22/17 08:45 (NS Flush) 2 ml BID IV FLUSH 10/22/17 09:00 10/29/17 08:52 (Narcan Inj) 0.4 mg UNSCH PRN IV PUSH 10/22/17 08:45 (Nitrostat Sl) 0.4 mg Q5M PRN SL 10/22/17 08:45 10/26/17 08:55 (Aspirin Chew) 81 mg DAILY CHEW 10/22/17 09:00 10/29/17 08:43 (Lipitor) 10 mg HS PO 10/22/17 21:00 10/28/17 21:19 (Pepcid) 20 mg HS PO 10/22/17 21:00 10/28/17 21:19 (Glucophage) 500 mg BIDPC PO 10/22/17 09:00 10/29/17 08:45 (Oramorph Sr) 60 mg Q8H PO 10/22/17 10:00 10/29/17 01:28 (Percocet 10-325 Mg) 1 tab Q6H PRN PO 10/22/17 08:45 10/29/17 06:32 (Protonix) 40 mg DAILYAC PO 10/23/17 08:00 10/28/17 09:52 (KCl) 20 meq DAILY PO 10/22/17 09:00 10/29/17 08:46 (Ranexa) 1,000 mg Q12HR PO 10/22/17 11:00 10/29/17 08:46 (Carafate Liq) 1 gm ACHS PO 10/22/17 12:00 10/28/17 21:19 Patient Own Medication PT OWN MED: SPIR... DAILY INH 10/23/17 09:00 Future Hold (Eliquis) 5 mg BID PO 10/22/17 21:00 10/29/17 08:44 (Pill Splitter) 1 ea UNSCH PRN OTHER 10/22/17 14:00 (Zofran Odt) 4 mg Q6H PRN PO 10/23/17 08:30 10/28/17 21:01 Amiodarone HCl 450 mg/Sodium Chloride 250 ml @ 33.33 mls/ hr Q7H31M PRN IV 10/23/17 15:00 Future Hold 10/24/17 03:08 (Morphine Inj) 2 mg Q4H PRN IV PUSH 10/23/17 16:00 10/27/17 09:15 Esmolol HCl/ Sodium Chloride 250 ml @ 21.3 mls/hr TITRATE PRN IV 10/23/17 18:15 10/23/17 18:39 (Brevibloc Bolus Inj) 35.5 mg BOLUS PRN IV 10/23/17 18:30 10/23/17 18:40 (D50w (Vial) Inj) 50 ml UNSCH PRN IV PUSH 10/24/17 08:15 (Glucagon Inj) 1 mg UNSCH PRN OTHER 10/24/17 08:15 (NovoLOG SUPPLEMENTAL SCALE) 1 ACHS SLIDING SCALE SQ 10/24/17 12:00 10/28/17 17:49 (Lasix) 40 mg DAILY PO 10/26/17 09:00 10/29/17 08:46 (Imdur) 30 mg DAILY PO 10/27/17 09:00 10/28/17 09:50 (Toprol Xl) 25 mg DAILY PO 10/27/17 09:00 10/28/17 09:51 (Cordarone) 200 mg DAILY PO 10/29/17 09:00 10/29/17 08:44 Vital Signs / I&O Vital Signs Date Time Temp Pulse Resp B/P (MAP) Pulse Ox O2 Delivery O2 Flow Rate FiO2 10/29/17 08:41 18 10/29/17 08:20 93 21 10/29/17 08:00 56 10/29/17 07:30 98.4 54 19 119/59 (79) 92 10/29/17 07:00 49 10/29/17 06:11 65 10/29/17 05:07 52 10/29/17 04:05 49 10/29/17 04:05 98.4 49 96/54 (68) 95 10/29/17 03:40 51 10/29/17 02:23 53 10/29/17 01:15 51 10/29/17 00:26 49 10/28/17 23:25 98.1 56 96/54 (68) 95 10/28/17 23:10 51 10/28/17 21:43 51 10/28/17 20:17 52 10/28/17 19:00 98.5 54 103/57 (72) 94 10/28/17 19:00 54 10/28/17 18:00 49 10/28/17 17:00 50 10/28/17 16:00 58 10/28/17 15:00 98.7 60 17 92/57 (69) 94 10/28/17 15:00 60 10/28/17 14:00 50 10/28/17 13:00 58 10/28/17 12:00 50 10/28/17 11:00 98.2 58 16 116/56 (76) 98 10/28/17 11:00 57 10/28/17 10:00 52 I/O 10/28/1718 18 18 18 10/29/17 07:00 15:00 23:00 07:00 15:00 23:00 Intake Total 570 ml 720 ml 440 ml Output Total 650 ml 850 ml Balance -80 ml -130 ml 440 ml Intake Oral 570 ml 720 ml 440 ml Output Urine Total 650 ml 850 ml # Voids 3 Physical Exam tele: sinus niharika Chest decreased BS, no wheezing CV S1S2 niharika no edema Assessment and Plan Problem List: (1) CAD (coronary artery disease) ICD Codes: I25.10 - CAD (coronary artery disease) Status: Chronic (2) Paroxysmal atrial fibrillation with rapid ventricular response ICD Codes: I48.0 - Paroxysmal atrial fibrillation Status: Acute (3) NSTEMI (non-ST elevated myocardial infarction) ICD Codes: I21.4 - Non-ST elevation (NSTEMI) myocardial infarction (4) Sinus bradycardia ICD Codes: R00.1 - Bradycardia, unspecified Assessment and Plan will discuss with Dr. Hernandez Problem Qualifiers (1) CAD (coronary artery disease): Qualified Codes: I25.10 - Atherosclerotic heart disease of [place] coronary artery without angina pectoris Arnel Harper MD Oct 29, 2017 09:17
--- NOTE | 2017-10-29 12:13 | HHI.PR ---
Subjective Remarks Feeling ok Objective Vital Signs Date Time Temp Pulse Resp B/P (MAP) Pulse Ox O2 Delivery O2 Flow Rate FiO2 10/29/17 12:00 54 10/29/17 11:17 19 10/29/17 11:00 98.1 60 19 120/61 (80) 94 10/29/17 11:00 59 10/29/17 10:00 51 10/29/17 09:00 52 10/29/17 08:45 90/52 (65) 10/29/17 08:41 18 10/29/17 08:20 93 21 10/29/17 08:00 56 10/29/17 07:30 98.4 54 19 119/59 (79) 92 10/29/17 07:00 49 10/29/17 06:11 65 10/29/17 05:07 52 10/29/17 04:05 49 10/29/17 04:05 98.4 49 96/54 (68) 95 10/29/17 03:40 51 10/29/17 02:23 53 10/29/17 01:15 51 10/29/17 00:26 49 10/28/17 23:25 98.1 56 96/54 (68) 95 10/28/17 23:10 51 10/28/17 21:43 51 10/28/17 20:17 52 10/28/17 19:00 98.5 54 103/57 (72) 94 10/28/17 19:00 54 10/28/17 18:00 49 10/28/17 17:00 50 10/28/17 16:00 58 10/28/17 15:00 98.7 60 17 92/57 (69) 94 10/28/17 15:00 60 10/28/17 14:00 50 10/28/17 13:00 58 I/O 10/28/17 10/28/17 10/28/17 10/29/17 10/29/17 10/29/17 07:00 15:00 23:00 07:00 15:00 23:00 Intake Total 570 ml 720 ml 440 ml Output Total 650 ml 850 ml Balance -80 ml -130 ml 440 ml Intake Oral 570 ml 720 ml 440 ml Output Urine Total 650 ml 850 ml # Voids 3 Result Diagram: 10/27/17 1629 10/26/17 0606 Imaging Alert, fully oriented Lungs: ventilated Heart: S1, S2 regular Abdomen: soft, no mass Ext: no edema Current Medications Medications (Trade) Dose Ordered Sig/Indu Route Start Time Stop Time Status Last Admin (NS Flush) 2 ml UNSCH PRN IV FLUSH 10/22/17 08:45 (NS Flush) 2 ml BID IV FLUSH 10/22/17 09:00 10/29/17 08:52 (Narcan Inj) 0.4 mg UNSCH PRN IV PUSH 10/22/17 08:45 (Nitrostat Sl) 0.4 mg Q5M PRN SL 10/22/17 08:45 10/26/17 08:55 (Aspirin Chew) 81 mg DAILY CHEW 10/22/17 09:00 10/29/17 08:43 (Lipitor) 10 mg HS PO 10/22/17 21:00 10/28/17 21:19 (Pepcid) 20 mg HS PO 10/22/17 21:00 10/28/17 21:19 (Glucophage) 500 mg BIDPC PO 10/22/17 09:00 10/29/17 08:45 (Oramorph Sr) 60 mg Q8H PO 10/22/17 10:00 10/29/17 10:09 (Percocet 10-325 Mg) 1 tab Q6H PRN PO 10/22/17 08:45 10/29/17 06:32 (Protonix) 40 mg DAILYAC PO 10/23/17 08:00 10/28/17 09:52 (KCl) 20 meq DAILY PO 10/22/17 09:00 10/29/17 08:46 (Ranexa) 1,000 mg Q12HR PO 10/22/17 11:00 10/29/17 08:46 (Carafate Liq) 1 gm ACHS PO 10/22/17 12:00 10/29/17 11:44 Patient Own Medication PT OWN MED: SPIR... DAILY INH 10/23/17 09:00 Future Hold (Eliquis) 5 mg BID PO 10/22/17 21:00 10/29/17 08:44 (Pill Splitter) 1 ea UNSCH PRN OTHER 10/22/17 14:00 (Zofran Odt) 4 mg Q6H PRN PO 10/23/17 08:30 10/28/17 21:01 Amiodarone HCl 450 mg/Sodium Chloride 250 ml @ 33.33 mls/ hr Q7H31M PRN IV 10/23/17 15:00 Future Hold 10/24/17 03:08 (Morphine Inj) 2 mg Q4H PRN IV PUSH 10/23/17 16:00 10/27/17 09:15 Esmolol HCl/ Sodium Chloride 250 ml @ 21.3 mls/hr TITRATE PRN IV 10/23/17 18:15 10/23/17 18:39 (Brevibloc Bolus Inj) 35.5 mg BOLUS PRN IV 10/23/17 18:30 10/23/17 18:40 (D50w (Vial) Inj) 50 ml UNSCH PRN IV PUSH 10/24/17 08:15 (Glucagon Inj) 1 mg UNSCH PRN OTHER 10/24/17 08:15 (NovoLOG SUPPLEMENTAL SCALE) 1 ACHS SLIDING SCALE SQ 10/24/17 12:00 10/29/17 11:44 (Lasix) 40 mg DAILY PO 10/26/17 09:00 10/29/17 08:46 (Imdur) 30 mg DAILY PO 10/27/17 09:00 10/28/17 09:50 (Toprol Xl) 25 mg DAILY PO 10/27/17 09:00 10/28/17 09:51 (Cordarone) 200 mg DAILY PO 10/29/17 09:00 10/29/17 08:44 Assessment and Plan Problem List: (1) Atrial fibrillation ICD Codes: I48.91 - Unspecified atrial fibrillation Plan: In sinus rhythm Episodes of niharika SOB significantly improve Cannot tolerate very well amio EPS and ablation discussed The risks, the nature and benefits discussed with her and Dr Harper Patient and understand and agree to proceed Procedure will be scheduled (2) COPD (chronic obstructive pulmonary disease) ICD Codes: J44.9 - Chronic obstructive pulmonary disease Status: Acute Plan: Continue to improve (3) HTN (hypertension) ICD Codes: I10 - Essential (primary) hypertension Status: Acute Plan: SBP 120 . Problem Qualifiers (1) Atrial fibrillation: Qualified Codes: I48.0 - Paroxysmal atrial fibrillation Torey Hernandez MD Oct 29, 2017 12:13
[2017-10-29] MEDS ORDERED: SODIUM CHLORID 0.9% 500 ML INJ 500 ML IV SCH ×2 (12:15)
[2017-10-29] MEDS: ONDANSETRON ODT 4 MG TAB PO PRN (17:36)
[2017-10-29] MEDS: FAMOTIDINE 20 MG TAB PO SCH (21:39)
[2017-10-29] MEDS: ATORVASTATIN 10 MG TAB PO SCH (21:39)
[2017-10-30] VITALS (11 sets, daily range): BP systolic 84–122; BP diastolic 51–65; PULSE 51–74; RESP 18–20; TEMP 98.2–98.6; O2SAT 92–94
[2017-10-30] MEDS: MORPHINE SULFATE 60 MG CONTROLLED RELEASE TAB PO SCH ×3 (01:53→17:10)
[2017-10-30] MEDS: ONDANSETRON ODT 4 MG TAB PO PRN (06:49)
[2017-10-30] MEDS: metFORMIN HCL 500 MG TAB PO SCH ×2 (07:53→17:10)
[2017-10-30] MEDS: ISOSORBIDE MONONITRATE 30 MG CR TAB (IMDUR) PO SCH (07:55)
[2017-10-30] MEDS: METOPROLOL SUCCINATE 50 MG EXTENDED RELEASE TAB PO SCH (07:56)
[2017-10-30] MEDS: SODIUM CHLORIDE 0.9% FLUSH 10 ML FLUSH IV FLUSH SCH ×2 (07:56→21:00)
[2017-10-30] MEDS: AMIODARONE 200 MG TAB PO SCH (07:56)
[2017-10-30] MEDS: INSULIN ASPART SUPPLEMENTAL SCALE SQ SCH ×4 (08:00→21:00)
[2017-10-30] MEDS: FUROSEMIDE 40 MG TAB PO SCH (08:32)
[2017-10-30] MEDS: RANOLAZINE 500 MG EXTENDED RELEASE TAB PO SCH ×2 (08:32→21:59)
[2017-10-30] MEDS: ASPIRIN 81 MG CHEW TAB CHEW SCH (08:32)
[2017-10-30] MEDS: SUCRALFATE 1 GM/10 ML CUP PO SCH ×4 (08:33→21:59)
[2017-10-30] MEDS: oxyCODONE/ACETAMINOPHEN 10 MG/325 MG TAB PO PRN (08:33)
[2017-10-30] MEDS: PANTOPRAZOLE SOD 40 MG DELAYED RELEASE TAB PO SCH (08:38)
[2017-10-30] MEDS: POTASSIUM CHLORIDE 20 MEQ CONTROLLED RELEASE TAB PO SCH (08:39)
[2017-10-30] MEDS ORDERED: HEPARIN SODIUM - IV 10,000 UNITS/10 ML VIAL ONE ×2 (08:58→09:22)
[2017-10-30] MEDS ORDERED: HEPARIN-NS/PF INJ 500 ML ONE ×2 (08:58→09:20)
[2017-10-30] MEDS ORDERED: LEVOFLOXACIN 500 MG PREMIX INJ 100 ML IV ONE ×2 (08:58→09:22)
[2017-10-30] MEDS ORDERED: HEPARIN-D5W 25,000 U/250 ML 250 ML ONE (09:21)
[2017-10-30] MEDS ORDERED: MIDAZOLAM HCL 2 MG/2 ML VIAL ONE (09:21)
[2017-10-30] MEDS ORDERED: ISOPROTERENOL INJ PREMIX 50 ML IV ONE ×2 (09:22→11:22)
[2017-10-30] MEDS ORDERED: SODIUM CHLOR 0.9% 250 ML INJ 250 ML ONE (10:08)
[2017-10-30] MEDS ORDERED: PROTAMINE SULFATE 50 MG/5 ML VIAL ONE (11:30)
[2017-10-30] MEDS ORDERED: NEOSTIGMINE 5 MG/5 ML SYRINGE IV PUSH ONE (12:00)
[2017-10-30] MEDS ORDERED: LIDOCAINE HCL 1% PF 5 ML SYRINGE OTHER ONE (12:00)
[2017-10-30] MEDS ORDERED: PHENYLEPHRINE HCL 10 MG/ML VIAL IV ONE (12:00)
[2017-10-30] MEDS ORDERED: PROPOFOL 200 MG/20 ML AMP IV ONE (12:00)
[2017-10-30] MEDS ORDERED: GLYCOPYRROLATE 1 MG/5 ML SYRINGE IV PUSH ONE (12:00)
[2017-10-30] MEDS ORDERED: PHENYLEPH/NS 1000 MCG/10 ML SYR IV ONE (12:00)
[2017-10-30] MEDS ORDERED: ROCURONIUM INJ 50 MG/5 ML SYRINGE IV PUSH ONE (12:00)
[2017-10-30] MEDS ORDERED: ONDANSETRON HCL 4 MG/2 ML VIAL IV ONE (12:00)
--- NOTE | 2017-10-30 12:02 | PD.CARD ---
Atrial Fibrillation Ablation PROCEDURE DATE: Oct 30, 2017 PROCEDURES PERFORMED: 1. Electrophysiology study on Isuprel infusion 2. CS cannulation 3. 3-D mapping 4. Transseptal approach 5. Right and left heart catheterization 6. Intracardiac echo 7. Radiofrequency ablation of atrial fibrillation 8. Pulmonary vein isolation 9. Posterior wall ablation 10. Mitral line creation 11. Anterior and posterior ablation INDICATIONS FOR THE PROCEDURE Ms. Small is a 72-year-old female with atrial fibrillation, very symptomatic, previous anticoagulation referred for electrophysiology study and ablation. The risks, the nature and the benefits of the procedure were clearly stated to her. The risks include pneumothorax, cardiac perforation, stroke, need for open heart surgery and even . The patient understood and agreed to proceed. DESCRIPTION OF THE PROCEDURE IN DETAIL As written informed consent was obtained prior to esophageal echocardiogram, the patient was kept on the table where she was prepped and draped in the usual sterile fashion. Conscious sedation was initiated and maintained throughout the procedure by the anesthesiologist. Once sedation was verified, the right and left inguinal areas were anesthetized with 2% Xylocaine. Using modified Seldinger technique, the left femoral vein was cannulated on three occasions, three guidewires were advanced. Over the wire a 6, 7 and a 10-Hungarian Hemaquet were advanced. Then the left femoral artery was cannulated on one occasion, one guidewire was advanced. Over the wire a 4-Hungarian Hemaquet was advanced. Then the right femoral vein was cannulated on one occasion, one guidewire was advanced. Over the wire a 8-Hungarian Hemaquet was advanced. Then under fluoroscopic guidance through the 6 and 7-Hungarian Hemaquet, two 5-Hungarian Michell curved quadripolar electrophysiology catheters were advanced and placed around the His as well as coronary sinus. Basic interval was measured. The patient was in sinus rhythm. Through the 10-Hungarian Hemaquet, a Cordis Salter AcuNav intracardiac echo catheter was advanced and placed at the right atrium. Multiple view was obtained. There was no pericardial effusion, pulmonary vein was seen, atrial septal was visualized. Then the 8-Hungarian Hemaquet in the right femoral vein was exchanged for Agilis transseptal sheath that was placed all the way to the superior vena cava. Through the sheath a Moisés needle was advanced, then the sheath, the dilator and the needle were progressed until foci engaged. Once engaged, the needle was advanced. RF was delivered for 2 seconds. I was able to cross into the left atrium. Once the needle crossed, the dilator was advanced. Once the dilator crossed, the sheath was advanced. Once the sheath crossed, the dilator and the needle were removed. At this point I did flood the system and fluid movement was seen in the left atrium the indicates the sheath is in good position. The patient already received 10,000 units of heparin. The goal is to keep an ACT around 350 during ablation. Then through the sheath a [facility]. Prudencio 20 pulse circumferential catheter was advanced. Using Soleil Insulation endocardial solution mapping system, a two-dimensional configuration of the left atrium was obtained. Points were taken at the left superior and inferior veins, right superior and inferior veins, mitral valve, and appendages. Then through the sheath a St. Prudencio TactiCath 65cm 3.5mm irrigated tipped mapping and radiofrequency ablation catheter was advanced. Esophageal probe was placed temperature monitoring during ablation. When it increased to 0.5 degrees Celsius above baseline, I moved to a different area of the atrium. First I did isolate the left superior and inferior vein. I did make a big little shell tribe around the veins. Posterior was ablated. A mitral line created. Then the right superior and inferior veins were isolated. I did remap the atrium. At that point I did advance the circumferential catheter again into the vein. There was no signal into the vein, pacing from the vein showed no conduction to the atrium. Isuprel infusion was initiated at 20 mcg for over 10 minutes. No tachyarrhythmia was induced, post Isuprel no tachyarrhythmia was induced. At that point the procedure was complete. All catheters were removed , atrial septal sheath was exchanged for 9-Hungarian Hemaquet, intracardiac echo showed no pericardial effusion. There is still good flow in the pulmonary vein. The patient is going to be transferred to the recovery room. No incident report. The patient tolerated the procedure. Blood loss was minimal. FINDINGS 1. Electrocardiogram: At baseline the patient was in sinus rhythm, post procedure electrocardiogram was unchanged. 2. Basic interval: Base cycle length was around 1060ms. AH at 88 and HV at 44 milliseconds. 3. Tachyarrhythmia: Atrial fibrillation was mapped and ablated. The ablation was successful. CONCLUSION Successful electrophysiology study, mapping, radiofrequency ablation of atrial fibrillation, pulmonary vein isolation, posterior ablation, mitral line creation. COMMENTS AND RECOMMENDATIONS The patient is going to be transferred to the telemetry unit. Will be observed and when stable can be discharged home. Torey Hernandez MD Oct 30, 2017 12:02
--- NOTE | 2017-10-30 12:03 | CATHPROC ---
[facility] HIS Report Study Information Study Number Admission Scheduled Start Study Start [id number] Oct 23 2017 2:46PM 10/29/2017 Oct 30 2017 9:15AM [place] Service Electrophysiology Study Admit Source Facility Department Other [facility] - Executive Chef Assistant Physician and Clinical Staff Initial Torey Claudio 3D Technologist Yonny Arshad,RT(R) 3D Technologist Kaley Leigh,RT(R) TECH2 Other Anesthesia, GRINDER OPERATOR TOOL Recorder Marie Davis,RN Recorder Mark RN, Marina Steele,MILLER ROD MILL TECH2 Procedures Performed Procedure Location (Site) Vessel Name ICE CATHETER INSERT RA Atruim RF Ablation LT. ATRIUM LT. [facility] Equipment Time Museum Or Zoo Director Description Size Mfg Part Number Used/Scraped NEEDLE, TRANSSEPTAL NRG 98 [id number] 09:33 [facility] Used C1 *[id number] [employer]/ EP [id number] 09:33 KIT, TRANSDUCER / AFIB Used PACER *[id number] CATHETER, TACTICATH ABLAT BUNDLE 09:33 [facility] Used 65 BUNDLE *[id number] BUNDLE [id number] CATHETER, FR7 OPTIMA SPIRAL 09:33 [facility] FR7 *[id number]- Used BUNDLE BUNDLE [id number] 09:33 [facility] CATHETER, JSN, QUAD BUNDLE FR 5 *[id number]- Used BUNDLE [id number] 09:33 [facility] CATHETER, JSN, QUAD BUNDLE FR 5 *[id number]- Used BUNDLE [id number] SET, COOL POINT TUBING 09:33 [facility] *[id number]- Used BUNDLE BUNDLE SHEATH, FR8.5 STEERABLE SM 09:33 [facility] 71CM [id number] Used 71CM BUNDLE [id number] 11:31 [employer]ICAL VASCADE, FR5 CLOSURE SYSTEM FR 5 Used *[id number] 11:32 [employer] VASCADE, FR6 CLOSURE SYSTEM FR 6\\7 Used *[id number] 11:32 [employer] VASCADE, FR6 CLOSURE SYSTEM FR 6\\7 Used *[id number] 11:32 [employer]ICAL VASCADE, FR6 CLOSURE SYSTEM FR 6\\7 Used *[id number] 11:31 C[employer] MEDICAL VASCADE, FR6 CLOSURE SYSTEM FR 6\\7 Used *[id number] COVER, TRANSDUCER CABLE 612-113 09:33 [employer] Used ACUNAV *[id number] 09:33 CORDIS/PACER SHEATH, FR10 FEDE 11CM FR 10 Used *[id number] 09:33 CORDIS/PACER SHEATH, FR9 FEDE 11CM FR 9 [id number] Used [id number] 09:33 [email or web address] BLANKET,WARM AIR CCL * Used *[id number] 09:33 [email or web address] PACK, CCL CUSTOM * Used *[id number] 09:33 [employer] PACER LEVI, LIMB * 2530 *[id number] Used [id number] 09:33 [employer] SHEATH, FR4.5 PRELUDE 11CM FR 4.5 Used [id number] 11:34 [employer] SHEATH, FR5.5 PRELUDE 11CM FR 5 [id number] Used [id number] 09:33 NAMIC TUBING, HIGH PRESSURE 48" 48" Used *[id number] 09:33 NAMIC TUBING, HIGH PRESSURE 48" 48" Used *[id number] 09:33 [facility] MEDICAL ELECTRODE KIT, CONCEPCIÓN X SURFACE * Used *[id number] 198870 09:33 [facility] MEDICAL SHEATH, EPS, FR6 FAST CATH FR 6 Used *[id number] 09:33 [facility] MEDICAL SHEATH, EPS, FR7 FAST CATH FR 7 [id number] Used [id number] 09:33 [facility] MEDICAL SHEATH, EPS, FR8 FAST CATH FR 8 Used *[id number] CATHETER, ACUNAV FR10 ICE [id number] 10:12 SIMRAN FR 10 Used (SIMRAN) *[id number] [facility] PAD, ELECTROSURGICAL 09:33 * [id number] *[id number] Used SURGICAL GROUNDING (BLUE) History: Allergies Allergy Reaction penicillin G Anaphylaxis Labs Hgb (g/dl) Hct (%) WBC (l/cumm) Platelets (thousands) 11.60-17.00 35.00-51.00 4.00-11.00 150.00-450.00 13.5 40.3 7.5 120 Glucose (mg/dl) BUN (mg/dl) Creatinine (mg/dl) BUN:Creatinine (1:x) 74.00-106.00 7.00-18.00 0.50-1.30 10.00-20.00 114 10 0.8 12.5 Na (meq/l) K (meq/l) 136.00-145.00 3.50-5.10 141 3.7 INR (PTT:PT) 0.90-1.10 1.1 CPK-MB (ng/ML) 0.50-3.60 Not Drawn Medication Medication Total Dose (Bolus/Oral) Medication Total Dosage/Unit 1% XYLOCAINE 40 mL HEPARIN 55615 units PROTAMINE 40 mg Medications (Bolus/Oral) Medication Time Given Dosage/Unit Administered By Reason 1% XYLOCAINE 10/30/2017 10:03:41 AM 20 mL Torey Hernandez 20 mL 1% XYLOCAINE given in lab by Torey Hernandez in Left Groin via Subcutaneous. Ordered by Yayo Hernandez 1% XYLOCAINE 10/30/2017 10:07:01 AM 20 mL Torey Hernandez 20 mL 1% XYLOCAINE given in lab by Torey Hernandez in Right Groin via Subcutaneous. Ordered by Glenn Hernandez. HEPARIN 10/30/2017 10:15:00 AM 03581 units Anesthesia, GRINDER OPERATOR TOOL 22841 units HEPARIN given in lab by Anesthesia, GRINDER OPERATOR TOOL in Right Antecubital via Peripheral IV. Ordered by Torey Hernandez. PROTAMINE 10/30/2017 11:31:32 AM 40 mg Anesthesia, GRINDER OPERATOR TOOL 40 mg PROTAMINE given in lab by Anesthesia, GRINDER OPERATOR TOOL via Peripheral IV. Ordered by Torey Hernandez. Medication (Drip) Medication Time Given Dosage/Unit Concentration/Unit Diluent (ml) Solution HEPARIN DRIP 10/30/2017 10:29:45 AM 1000 units/hr 03145 units 250 D5W 1000 units/hr HEPARIN DRIP given in lab by Anesthesia, GRINDER OPERATOR TOOL in Left Antecubital via Peripheral IV. Pu mp/Drip Flow = 10 ml/hr [place] [address] units in 250 ml. Ordered by Torey Hernandez. HEPARIN DRIP STOPPED 10/30/2017 10:59:03 AM 0 units/hr 0 0 units/hr HEPARIN DRIP STOPPED given in lab by Anesthesia, GRINDER OPERATOR TOOL. Pump/Drip Flow = 0 ml/hr using [Angela ution Name]. Ordered by Torey Hernandez. ISUPREL 10/30/2017 11:18:21 AM 20 mcg/min 1 mg 250 NaCl .9 20 mcg/min ISUPREL given in lab by THAO Mar via Peripheral IV. Pump/Drip Flow = 300 ml/hr usi ng NaCl .9 with a concentration of 1 mg in 250 ml. Ordered by Torey Hernandez. ISUPREL DRIP STOPPED 10/30/2017 11:25:53 AM 0 units/hr 0 0 units/hr ISUPREL DRIP STOPPED given in lab by THAO Mar. Pump/Drip Flow = 0 ml/hr using [Angela ution Name]. Ordered by Torey Hernandez. LEVAQUIN 10/30/2017 9:35:00 AM 100 mL/hr 500 100 NaCl .9 100 mL/hr LEVAQUIN given by THAO Mar via Peripheral IV. Pump/Drip Flow = 0 ml/hr using NaCl . 9 with a concentration of 500 in 100 ml. Initial Case Assessment Cardiovascular HR Rhythm Chest Pain 57 SB 0 Edema Present Skin color Skin None Normal Warm Dry Circulatory - Right Pulses Dorsalis Pedis Posterior Tibial Femoral 2 1 1 Scale (0,1,2,3,4,d) Circulatory - Left Pulses Dorsalis Pedis Posterior Tibial Femoral 2 1 1 Scale (0,1,2,3,4,d) Circulatory - Lower Extremities Color Lower Right Color Lower Left Normal Normal Neurological State Oriented to time-place- Alert Moves all extremities person Respiration - General Respiration Rate SpO2 (%) (B/min) 17 97 Chronological Log Time Study Chronological Log 9:09:00 Patient arrived via Bed. 9:09:01 Patient Name, D.O.B, / Armband Verified By R.N. 9:09:02 Consent signed by the physician and the patient and verified by the Executive Chef Assistant staff. 9:09:03 Pre-op and post- op instructions given; patient acknowledges understanding of instructions. 9:09:05 Verbal Stimulation=2 Physical Stimulation=2 Airway=2 Respiration=2 TOTAL=8. (0=absent, 1=li mited, 2=present) Anesthesia at bedside. THAO Abrams assumes care of patient. See Anesthia records for all med ications and vitals 9:09:10 given during case. 9:10:00 Patient has been NPO for More than 6Hrs. 9:13:11 History and physical on the chart or being dictated. 9:15:00 Skin Breakdown-none per pt 9:20:16 Patient Warmer Placed on the Table. 9:20:16 Disposable Defibrillator Pads Placed On Patient. 9:20:17 Helen Prominences Protected 9:20:22 A # 20 IV was noted in the Antecubital (left). Grade = 0 0.9NS infusing at KVO 9:20:35 A # 20 IV was noted in the Antecubital (right). Grade = 0 0.9NS infusing at KVO 9:20:52 History and physical on the chart or being dictated. Assessment: Initial Case, HR=57 BPM, Rhythm=SB, Chest Pain=0, Edema=None, Color=Normal, Skin = Warm, Dry Right Pulses: Prabhu Ped=2, Post Tib=1, Femoral=1 Left Pulses: Prabhu Ped=2, Post Tib=1, Femoral=1 9:20:56 Lower Right Extremities: Color=Normal Lower Left Extremities: Color=Normal Neurological: State=Alert, Ox3, [place] Respiration: Resp=17 B/min, SpO2=97 % 9:30:42 MD arrived. 9:30:51 Table restraints applied according to hospital policy 100 mL/hr LEVAQUIN given by Anesthesia, GRINDER OPERATOR TOOL via Peripheral IV. Pump/Drip Flow = 0 ml/hr using NaCl .9 with a 9:35:00 concentration of 500 in 100 ml. 9:35:26 IV Antibiotic Given in the Antecubital (right). 9:36:49 14 fr baltazar catheter inserted by Nat Davis RN, Clear yellow urine noted 9:40:09 Bilateral groins prepped with 2% chlorhexidine, and draped after a 3 minute waiting time. 9:47:45 Pressure channel 2 zeroed. Time Out. Correct patient, procedure, procedure equipment, site and side verified with physicia n present. Time 9:57:48 concurred by MD, individual staff and GRINDER OPERATOR TOOL. Time Out #2 - Consents verified, patient in correct position, all results are labled and displa yed, safety precautions 9:57:49 taken, antibiotics administered. Time out concurred by MD, individual staff and GRINDER OPERATOR TOOL in procedu re 9:58:04 Case Start 9:58:24 JAX in progress 10:00:00 Activated Clotting Time Drawn 10:03:35 JAX complete 10:03:41 20 mL 1% XYLOCAINE given in lab by Torey Hernandez in Left Groin via Subcutaneous. Ordered by Torey Hernandez. 10:03:49 Vascular access was obtained in the Fem Vein (left). 10:04:22 Vascular access was obtained in the Fem Vein (left). 10:04:23 Vascular access was obtained in the Fem Vein (left). 10:04:25 A SHEATH, EPS, FR6 FAST CATH FR 6 was advanced into the Fem Vein (left) using the Modified Seldinger technique. 10:04:54 A SHEATH, EPS, FR7 FAST CATH FR 7 was advanced into the Fem Vein (left) using the Modified Seldinger technique. 10:04:58 A SHEATH, FR10 FEDE 11CM FR 10 was advanced into the Fem Vein (left) using the Modified S eldinger technique. 10:05:33 Vascular access was obtained in the Fem Art (left). 10:05:48 A SHEATH, FR4.5 PRELUDE 11CM FR 4.5 was advanced into the Fem Art (left) using the Modified Seldinger technique. 10:07:01 20 mL 1% XYLOCAINE given in lab by Torey Hernandez in Right Groin via Subcutaneous. Ordered b Torey Garcia. 10:07:09 Vascular access was obtained in the Fem Vein (right). 10:08:16 A SHEATH, EPS, FR8 FAST CATH FR 8 was advanced into the Fem Art (right) using the Modified Seldinger technique. A CATHETER, JSN, QUAD BUNDLE FR 5 was advanced vis Fem Vein (left) and placed in the CS. Placem ent was visually 10:09:34 confirmed under fluoroscopy. A CATHETER, JSN, QUAD BUNDLE FR 5 was advanced vis Fem Vein (left) and placed in the HIS. Place ment was 10:10:46 visually confirmed under fluoroscopy. 10:11:33 CATHETER, ACUNAV FR10 ICE (SIMRAN) FR 10 Was Postioned. A SHEATH, FR8.5 STEERABLE SM 71CM BUNDLE 71CM was exchanged in the Fem Vein (right). This was n ecessary in 10:12:00 order to accomodate a larger catheter. 10:14:34 Callie needle inserted in right femoral vein via [address] Hernandez 10:14:58 A eps was advanced to the right atrium and passed through the septal wall to the left atriu [place]. 96977 units HEPARIN given in lab by Anesthesia, GRINDER OPERATOR TOOL in Right Antecubital via Peripheral IV. Or dered by David, 10:15:00 Torey. 10:15:10 Callie needle removed A CATHETER, FR7 OPTIMA SPIRAL BUNDLE FR7 was advanced vis Fem Vein (right) and placed in the LA . Placement 10:17:56 was visually confirmed under fluoroscopy. 10:18:32 Mapping in progress 10:20:50 Activated Clotting Time Drawn 10:24:44 Mapping complete 10:24:50 Spiral/Mapping Catheter was removed 10:28:13 ACT (Normal Range 90-180) = 390 1000 units/hr HEPARIN DRIP given in lab by Anesthesia, GRINDER OPERATOR TOOL in Left Antecubital via Peripheral IV. Pump/Drip Flow = 10:29:45 10 ml/hr [place] [address] units in 250 ml. Ordered by Torey Hernandez. A CATHETER, TACTICATH ABLAT 65 BUNDLE was advanced vis Fem Vein (right) and placed in the LA. P lacement was 10:32:39 visually confirmed under fluoroscopy. 10:33:43 RF Ablation of the LT. ATRIUM with a CATHETER, TACTICATH ABLAT 65 BUNDLE. 10:49:47 Activated Clotting Time Drawn 10:58:37 ACT (Normal Range 90-180) = 447 0 units/hr HEPARIN DRIP STOPPED given in lab by Anesthesia, GRINDER OPERATOR TOOL. Pump/Drip Flow = 0 ml/hr usin g [Solution 10:59:03 Name]. Ordered by Torey Hernandez. 11:05:21 Ablation Complete 11:06:22 Ablation Catheter was removed A CATHETER, FR7 OPTIMA SPIRAL BUNDLE FR7 was advanced vis Fem Vein (left) and placed in the LA. Placement 11:06:35 was visually confirmed under fluoroscopy. 11:09:04 Mapping Catheter was removed 20 mcg/min ISUPREL given in lab by Anesthesia, GRINDER OPERATOR TOOL via Peripheral IV. Pump/Drip Flow = 300 ml/ hr using NaCl .9 11:18:21 with a concentration of 1 mg in 250 ml. Ordered by Torey Hernandez. 0 units/hr ISUPREL DRIP STOPPED given in lab by Anesthesia, GRINDER OPERATOR TOOL. Pump/Drip Flow = 0 ml/hr usin g [Solution Name]. 11:25:53 Ordered by Torey Hernandez. 11:26:54 Case End (Physician broke scrub) 11:27:56 Catheter(s) removed without difficulty A SHEATH, FR9 FEDE 11CM FR 9 was exchanged in the Fem Vein (right). This was necessary in ord er to achieve 11:28:24 vascular hemostasis. A SHEATH, FR5.5 PRELUDE 11CM FR 5 was exchanged in the Fem Art (left). This was necessary in or micki to achieve 11:29:00 vascular hemostasis. 11:29:16 PACU called. Spoke to Alyssia 11:29:51 Bedside Report will be given. 11:30:13 VASCADE, FR6 CLOSURE SYSTEM FR 6\\7 placement in the Fem Vein (right) 11:31:07 VASCADE, FR5 CLOSURE SYSTEM FR 5 placement in the Fem Art (left) 11:31:32 40 mg PROTAMINE given in lab by Anesthesia, GRINDER OPERATOR TOOL via Peripheral IV. Ordered by Reynaldo Hernandez 11:31:36 VASCADE, FR6 CLOSURE SYSTEM FR 6\\7 placement in the Fem Vein (left) 11:31:55 VASCADE, FR6 CLOSURE SYSTEM FR 6\\7 placement in the Fem Vein (left) 11:32:01 VASCADE, FR6 CLOSURE SYSTEM FR 6\\7 placement in the Fem Vein (left) 11:43:25 ACT (Normal Range 90-180) = 150 11:44:29 Sterile dressing applied to sites 11:44:43 Bedside Report will be given. 12:02:55 Patient moved to [facility] End Study - Contrast Media Used In Study Contrast Total Opened (mL) Total Used (mL) Total Wasted (mL) Unspecified 0 0 0 End Study - Maximum Contrast Load Max Contrast Load (mL) 471.9 End Study - Radiation Exposure Fluoro Time (minutes) 1.2 End Study - Patient Disposition Complications Transferred To Interventional Outcome No Special Procedures successful
[2017-10-30] MEDS ORDERED: DO NOT ADM ANY ANTICOAGULANT DRUGS PRN (12:10)
[2017-10-30] MEDS ORDERED: oxyCODONE/ACETAMINOPHEN 5 MG/325 MG TAB PO PRN ×2 (12:15)
[2017-10-30] MEDS ORDERED: BACITRACIN OINT 0.9 GM PKT TOP ONE (12:15)
[2017-10-30] MEDS ORDERED: LIDOCAINE HCL 1% 50 ML VIAL INFIL PRN (12:15)
[2017-10-30] MEDS ORDERED: SODIUM CHLOR 0.9% 250 ML INJ 250 ML IV PRN (12:15)
[2017-10-30] MEDS ORDERED: ATROPINE SULFATE 1 MG/ML VIAL IV PUSH PRN (12:15)
[2017-10-30] MEDS ORDERED: LORazepam 2 MG/ML VIAL IV PUSH PRN (12:15)
[2017-10-30] MEDS ORDERED: ONDANSETRON ODT 4 MG TAB PO PRN (12:15)
[2017-10-30] MEDS ORDERED: *morphine SULFATE 8 MG/ML PERIprocedure ONLY ONE ×2 (12:16→12:33)
--- NOTE | 2017-10-30 17:03 | HHI.PR ---
Subjective Remarks Patient underwent cardiac catheterization and cardiac ablation for atrial fibrillation today with Dr. SUSAN LUCIO RN AND PT HAS SOME NAUSEA NOW HOPEFULLY DISCHARGE TO HOME TOMORROW AM LABS Objective Vitals Vital Signs Date Time Temp Pulse Resp B/P (MAP) Pulse Ox O2 Delivery O2 Flow Rate FiO2 10/30/17 16:21 18 10/30/17 16:14 66 10/30/17 15:13 67 10/30/17 15:13 98.6 70 18 116/65 (82) 93 10/30/17 15:13 18 10/30/17 15:12 18 10/30/17 14:01 63 10/30/17 13:36 68 10/30/17 12:45 98.1 69 14 131/78 (95) 99 Nasal Cannula 2 10/30/17 12:30 72 14 122/69 (86) 99 Nasal Cannula 2 10/30/17 12:15 76 14 137/76 (96) 98 Nasal Cannula 2 10/30/17 12:10 98.1 80 14 129/77 (94) 97 Nasal Cannula 2 10/30/17 08:30 51 10/30/17 08:30 98.2 54 18 107/56 (73) 94 10/30/17 06:00 57 10/30/17 03:00 59 10/30/17 03:00 98.2 58 20 122/59 (80) 93 10/30/17 03:00 18 10/29/17 23:02 98.4 65 18 131/73 (92) 91 10/29/17 23:00 52 10/29/17 19:00 54 10/29/17 19:00 98.2 58 20 111/59 (76) 95 10/29/17 18:00 59 10/29/17 17:00 56 I/O 10/29/17 10/29/17 10/29/17 10/30/17 10/30/17 10/30/17 07:00 15:00 23:00 07:00 15:00 23:00 Intake Total 440 ml 1040 ml 480 ml Balance 440 ml 1040 ml 480 ml Intake Oral 440 ml 1040 ml 480 ml # Voids 3 3 4 # Bowel Movements 0 0 Result Diagram: 10/27/17 1629 10/26/17 0606 Other Results Current Medications Nitroglycerin (Nitroglycerin 2% Oint) 1 inch ONCE ONCE TOP ; Start 10/22/17 at 06:45; Stop 10/22/17 at 06:46; Status DC Sodium Chloride (NS Flush) 2 ml UNSCH PRN IVF FLUSH AFTER USING IV ACCESS; Start 10/22/17 at 06:45; Stop 10/22/17 at 08:41; Status DC Sodium Chloride (NS Flush) 2 ml UNSCH PRN IV FLUSH FLUSH AFTER USING IV ACCESS ; Start 10/22/17 at 08:45 Sodium Chloride (NS Flush) 2 ml BID IV FLUSH Last administered on 10/30/17at 07: 56; Start 10/22/17 at 09:00 Ondansetron HCl (Zofran Inj) 4 mg Q6H PRN IVP NAUSEA OR VOMITING; Start at 08:45; Stop 10/23/17 at 08:27; Status DC Enoxaparin Sodium (Lovenox Inj) 40 mg Q24H SQ Last administered on 10/22/17at 10 :25; Start 10/22/17 at 10:00; Stop 10/22/17 at 13:24; Status DC Naloxone HCl (Narcan Inj) 0.4 mg UNSCH PRN IV PUSH SEE LABEL COMMENTS; Start at 08:45 Nitroglycerin (Nitrostat Sl) 0.4 mg Q5M PRN SL CHEST PAIN Last administered on 10/26/17at 08:55; Start 10/22/17 at 08:45 Aspirin (Aspirin Chew) 81 mg ONCE ONCE CHEW Last administered on 10/22/17at 09: 22; Start 10/22/17 at 08:45; Stop 10/22/17 at 08:46; Status DC Amlodipine Besylate (Norvasc) 5 mg DAILY PO ; Start 10/22/17 at 09:00; Stop 03/31 at 13:24; Status DC Aspirin (Aspirin Chew) 81 mg DAILY CHEW Last administered on 10/30/17at 08:32; Start 10/22/17 at 09:00; Stop 10/30/17 at 12:08; Status DC Atorvastatin Calcium (Lipitor) 10 mg HS PO Last administered on 10/29/17at 21:39 ; Start 10/22/17 at 21:00 Famotidine (Pepcid) 20 mg HS PO Last administered on 10/29/17at 21:39; Start 03/31 at 21:00 Furosemide (Lasix) 40 mg BID@,18 PO Last administered on 10/25/17at 09:56; Start 10/22/17 at 09:00; Stop 10/25/17 at 13:23; Status DC Isosorbide Mononitrate (Imdur) 60 mg BID@0700,2100 PO Last administered on 10/25at 06:11; Start 10/22/17 at 21:00; Stop 10/25/17 at 13:23; Status DC Metformin HCl (Glucophage) 500 mg BIDPC PO Last administered on 10/29/17at 17:36 ; Start 10/22/17 at 09:00 Metoprolol Succinate (Toprol Xl) 25 mg DAILY PO ; Start 10/22/17 at 09:00; Stop 10/22/17 at 13:24; Status DC Morphine Sulfate (Oramorph Sr) 60 mg Q8H PO Last administered on 10/30/17at 01: 53; Start 10/22/17 at 10:00 Oxycodone/ Acetaminophen (Percocet 10-325 Mg) 1 tab Q6H PRN PO PAIN 3-10 Last administered on 10/30/17at 08:33; Start 10/22/17 at 08:45; Stop 10/30/17 at 13:18 ; Status DC Pantoprazole Sodium (Protonix) 40 mg DAILYAC PO Last administered on 10/30/17at 08:38; Start 10/23/17 at 08:00 Potassium Chloride (KCl) 20 meq DAILY PO Last administered on 10/30/17at 08:39; Start 10/22/17 at 09:00 Ranolazine (Ranexa) 1,000 mg Q12HR PO Last administered on 10/30/17at 08:32; Start 10/22/17 at 11:00 Sucralfate (Carafate Liq) 1 gm ACHS PO Last administered on 10/30/17at 08:33; Start 10/22/17 at 12:00 Tiotropium [place] (Spiriva Inh) 36 mcg DAILY INH ; Start 10/22/17 at 11:00; Stop 10/22/17 at 11:49; Status DC Patient Own Medication PT OWN MED: SPIR... DAILY INH ; Start 10/23/17 at 09:00; Status Future Hold Amlodipine Besylate (Norvasc) 2.5 mg DAILY PO Last administered on 10/23/17at 09 :29; Start 10/23/17 at 09:00; Stop 10/25/17 at 13:23; Status DC Metoprolol Succinate (Toprol Xl) 50 mg DAILY PO Last administered on 10/26/17at 08:57; Start 10/23/17 at 09:00; Stop 10/27/17 at 08:24; Status DC Apixaban (Eliquis) 5 mg BID PO Last administered on 10/29/17at 08:44; Start 03/31 at 21:00; Stop 10/29/17 at 12:15; Status DC Miscellaneous (Pill Splitter) 1 ea UNSCH PRN OTHER SEE LABEL COMMENTS; Start at 14:00 Ondansetron HCl (Zofran Odt) 4 mg Q6H PRN PO nausea Last administered on at 06:49; Start 10/23/17 at 08:30; Stop 10/30/17 at 13:19; Status DC Metoprolol Tartrate (Lopressor Inj) 5 mg ONCE ONCE IV PUSH Last administered on 10/23/17at 14:19; Start 10/23/17 at 14:15; Stop 10/23/17 at 14:16; Status DC Amiodarone HCl 150 mg/Dextrose 103 ml @ 600 mls/hr Q11M ONCE IV Last administered on 10/23/17at 15:05; Start 10/23/17 at 15:00; Stop 10/23/17 at 15:10 ; Status DC Amiodarone HCl 450 mg/Sodium Chloride 250 ml @ 33.33 mls/ hr Q7H31M PRN IV Per Protocol Last administered on 10/24/17at 03:08; Start 10/23/17 at 15:00; Status Future Hold Morphine Sulfate (Morphine Inj) 2 mg ONCE ONCE IV PUSH Last administered on 04/30at 14:45; Start 10/23/17 at 14:45; Stop 10/23/17 at 14:54; Status DC Morphine Sulfate (Morphine Inj) 2 mg Q4H PRN IV PUSH chest pain/breakthrough pain Last administered on 10/27/17at 09:15; Start 10/23/17 at 16:00 Metoprolol Tartrate (Lopressor Inj) 5 mg NOW ONCE IV PUSH Last administered on 10/23/17at 16:00; Start 10/23/17 at 16:15; Stop 10/23/17 at 16:16; Status DC Esmolol HCl/ Sodium Chloride 250 ml @ 7.908 mls/ hr TITRATE PRN IV Blood Pressure Management Last administered on 10/23/17at 17:50; Start 10/23/17 at 16: 15; Stop 10/23/17 at 18:12; Status DC Esmolol HCl (Brevibloc Bolus Inj) 13 mg BOLUS PRN IV PUSH Rebolus; Start at 16:15; Status Cancel Metoprolol Tartrate (Lopressor Inj) 5 mg NOW ONCE IV PUSH Last administered on 10/23/17at 16:19; Start 10/23/17 at 16:15; Stop 10/23/17 at 16:16; Status DC Esmolol HCl/ Sodium Chloride 250 ml @ 21.3 mls/hr TITRATE PRN IV Blood Pressure Management Last administered on 10/23/17at 18:39; Start 10/23/17 at 18: 15; Stop 10/30/17 at 12:08; Status DC Esmolol HCl (Brevibloc Bolus Inj) 35.5 mg BOLUS PRN IV PUSH Rebolus; Start 04/30 at 18:30; Status Cancel Esmolol HCl (Brevibloc Bolus Inj) 35.5 mg BOLUS PRN IV PUSH Rebolus; Start 04/30 at 18:30; Status Cancel Esmolol HCl (Brevibloc Bolus Inj) 35.5 mg BOLUS PRN IV PUSH Rebolus; Start 04/30 at 18:30; Status Cancel Esmolol HCl (Brevibloc Bolus Inj) 35.5 mg BOLUS PRN IV REBOLUS Last administered on 10/23/17at 18:40; Start 10/23/17 at 18:30 Dextrose (D50w (Vial) Inj) 50 ml UNSCH PRN IV PUSH HYPOGLYCEMIA-SEE COMMENTS; Start 10/24/17 at 08:15 Glucagon (Glucagon Inj) 1 mg UNSCH PRN OTHER HYPOGLYCEMIA-SEE COMMENTS; Start 10/24/17 at 08:15 Insulin Aspart (NovoLOG SUPPLEMENTAL SCALE) 1 ACHS SLIDING SCALE SQ Last administered on 10/30/17at 16:21; Start 10/24/17 at 12:00 Sodium Chloride 500 ml @ 500 mls/hr Q1H IV Last administered on 10/24/17at 09: 19; Start 10/24/17 at 09:00; Stop 10/24/17 at 09:59; Status DC Amiodarone HCl (Cordarone) 200 mg Q12HR PO Last administered on 10/24/17at 21:04 ; Start 10/24/17 at 09:00; Stop 10/25/17 at 13:23; Status DC Sodium Chloride 500 ml @ 500 mls/hr BOLUS ONCE IV Last administered on at 11:37; Start 10/24/17 at 11:45; Stop 10/24/17 at 12:44; Status DC Furosemide (Lasix Inj) 20 mg ONCE PRN IV PUSH Dyspnea; Start 10/24/17 at 11:15 ; Stop 10/25/17 at 11:14; Status DC Sodium Chloride 250 ml @ 250 mls/hr BOLUS ONCE IV Last administered on at 09:12; Start 10/25/17 at 09:00; Stop 10/25/17 at 09:59; Status DC Amiodarone HCl (Cordarone) 200 mg DAILY PO Last administered on 10/26/17at 15:10 ; Start 10/26/17 at 09:00; Stop 10/27/17 at 08:24; Status DC Furosemide (Lasix) 40 mg DAILY PO Last administered on 10/30/17at 08:32; Start 10/26/17 at 09:00 Isosorbide Mononitrate (Imdur) 60 mg DAILY PO ; Start 10/26/17 at 09:00; Stop at 07:18; Status DC Potassium Chloride (KCl) 30 meq ONCE ONCE PO Last administered on 10/25/17at 17 :43; Start 10/25/17 at 17:15; Stop 10/25/17 at 17:30; Status DC Isosorbide Mononitrate (Imdur) 30 mg DAILY PO Last administered on 10/28/17at 09 :50; Start 10/27/17 at 09:00 Amiodarone HCl (Cordarone) 400 mg DAILY PO Last administered on 10/28/17at 09:51 ; Start 10/27/17 at 09:00; Stop 10/29/17 at 07:16; Status DC Metoprolol Succinate (Toprol Xl) 25 mg DAILY PO Last administered on 10/28/17at 09:51; Start 10/27/17 at 09:00 Amiodarone HCl (Cordarone) 200 mg DAILY PO Last administered on 10/29/17at 08:44 ; Start 10/29/17 at 09:00; Stop 10/30/17 at 12:08; Status DC Sodium Chloride 500 ml @ 30 mls/hr CONTINUOUS IV ; Start 10/29/17 at 12:15 Sodium Chloride 500 ml @ 30 mls/hr CONTINUOUS IV ; Start 10/29/17 at 12:15 Heparin Sodium/ Sodium Chloride 500 ml @ As Directed STK-MED ONCE .ROUTE ; Start 10/30/17 at 08:58; Stop 10/30/17 at 08:59; Status DC Levofloxacin/ Dextrose 100 ml @ As Directed STK-MED ONCE IV ; Start 10/30/17 at 08:58; Stop 10/30/17 at 08:59; Status DC Heparin Sodium (Porcine) (Heparin Inj) 10,000 units STK-MED ONCE .ROUTE ; Start 10/30/17 at 08:58; Stop 10/30/17 at 08:59; Status DC Heparin Sodium/ Sodium Chloride 500 ml @ As Directed STK-MED ONCE .ROUTE ; Start 10/30/17 at 09:20; Stop 10/30/17 at 09:21; Status DC Heparin Sodium/ Dextrose 250 ml @ As Directed STK-MED ONCE .ROUTE ; Start 10/30 at 09:21; Stop 10/30/17 at 09:22; Status DC Fentanyl Citrate (fentaNYL INJ) 100 mcg STK-MED ONCE .ROUTE ; Start 10/30/17 at 09:21; Stop 10/30/17 at 09:22; Status DC Midazolam HCl (Versed Inj) 2 mg STK-MED ONCE .ROUTE ; Start 10/30/17 at 09:21; Stop 10/30/17 at 09:22; Status DC Heparin Sodium (Porcine) (Heparin Inj) 20,000 units STK-MED ONCE .ROUTE ; Start 10/30/17 at 09:22; Stop 10/30/17 at 09:23; Status DC Isoproterenol HCl 50 ml @ As Directed STK-MED ONCE IV ; Start 10/30/17 at 09:22 ; Stop 10/30/17 at 09:23; Status DC Levofloxacin/ Dextrose 100 ml @ As Directed STK-MED ONCE IV ; Start 10/30/17 at 09:22; Stop 10/30/17 at 09:23; Status DC Sodium Chloride 250 ml @ As Directed STK-MED ONCE .ROUTE ; Start 10/30/17 at 10 :08; Stop 10/30/17 at 10:09; Status DC Isoproterenol HCl 50 ml @ As Directed STK-MED ONCE IV ; Start 10/30/17 at 11:22 ; Stop 10/30/17 at 11:23; Status DC Protamine Sulfate (Protamine Sulfate Inj) 50 mg STK-MED ONCE .ROUTE ; Start at 11:30; Stop 10/30/17 at 11:31; Status DC Oxycodone/ Acetaminophen (Percocet 5-325 Mg) 1 tab Q4H PRN PO PAIN SCALE 1 TO 4 Last administered on 10/30/17at 15:38; Start 10/30/17 at 12:15 Oxycodone/ Acetaminophen (Percocet 5-325 Mg) 2 tab Q4H PRN PO PAIN SCALE 5 TO 10; Start 10/30/17 at 12:15 Lorazepam (Ativan Inj) 0.5 mg UNSCH PRN IV PUSH ANXIETY; Start 10/30/17 at 12: 15; Stop 10/31/17 at 12:14 Atropine Sulfate (Atropine Inj) 0.5 mg UNSCH PRN IV PUSH VAGAL REPONSE; Start 10/30/17 at 12:15 Sodium Chloride 250 ml @ 500 mls/hr ONCE PRN IV VAGAL REPONSE; Start 10/30/17 at 12:15; Stop 10/31/17 at 12:14 Ondansetron HCl (Zofran Odt) 4 mg Q4H PRN PO NAUSEA; Start 10/30/17 at 12:15 Lidocaine HCl (Xylocaine 1% Inj (50 ml)) 10 ml UNSCH PRN INFIL SHEATH REMOVAL; Start 10/30/17 at 12:15; Stop 10/31/17 at 12:14 Bacitracin (Bacitracin Oint Packet) 0.9 gm ONCE ONCE TOP ; Start 10/30/17 at 12 :15; Stop 10/30/17 at 12:47; Status DC Apixaban (Eliquis) 5 mg BID PO ; Start 10/30/17 at 21:00 Morphine Sulfate (*morphine INJ PERIprocedure ONLY) 8 mg STK-MED ONCE .ROUTE Last administered on 10/30/17at 12:16; Start 10/30/17 at 12:16; Stop 10/30/17 at 12:17; Status DC Morphine Sulfate (*morphine INJ PERIprocedure ONLY) 8 mg STK-MED ONCE .ROUTE Last administered on 10/30/17at 12:33; Start 10/30/17 at 12:33; Stop 10/30/17 at 12:34; Status DC Miscellaneous Information [place] [place] [facility] ALL NURSING DEPARTME... UNSCH PRN .XX SEE LABEL COMMENTS; Start 10/30/17 at 12:10; Stop 10/31/17 at 12: 09 Imaging Last Impressions Chest X-Ray 10/22/17 0631 Signed Impressions: CONCLUSION: Cardiomegaly with trace pleural effusions and minimal basilar atelectasis. Objective Remarks GENERAL: Awake alert and oriented 3 and talkative and cooperative SKIN: Warm and dry. HEAD: Atraumatic. Normocephalic. EYES: Pupils equal and round. No scleral icterus. No injection or drainage. Extraocular muscles intact ENT: No nasal bleeding or discharge. Mucous membranes pink and moist. Tongue is midline NECK: Trachea midline. No JVD. Supple CARDIOVASCULAR: Regular rate and rhythm. S1-S2 no S3 or S4 RESPIRATORY: No accessory muscle use. Clear to auscultation. Breath sounds equal bilaterally. GASTROINTESTINAL: Abdomen soft, non-tender, nondistended. Hepatic and splenic margins not palpable. Obese MUSCULOSKELETAL: Extremities without clubbing, cyanosis, or edema. No obvious deformities. NEUROLOGICAL: Awake and alert. No obvious cranial nerve deficits. Motor grossly within normal limits. 4 out of 5 muscle strength in the arms and legs. Normal speech. PSYCHIATRIC: Appropriate mood and affect; insight and judgment normal. Procedures CARDIAC ABLATION FOR AFIB Medications and IVs Current Medications Nitroglycerin (Nitroglycerin 2% Oint) 1 inch ONCE ONCE TOP ; Start 10/22/17 at 06:45; Stop 10/22/17 at 06:46; Status DC Sodium Chloride (NS Flush) 2 ml UNSCH PRN IVF FLUSH AFTER USING IV ACCESS; Start 10/22/17 at 06:45; Stop 10/22/17 at 08:41; Status DC Sodium Chloride (NS Flush) 2 ml UNSCH PRN IV FLUSH FLUSH AFTER USING IV ACCESS ; Start 10/22/17 at 08:45 Sodium Chloride (NS Flush) 2 ml BID IV FLUSH Last administered on 10/30/17at 07: 56; Start 10/22/17 at 09:00 Ondansetron HCl (Zofran Inj) 4 mg Q6H PRN IVP NAUSEA OR VOMITING; Start at 08:45; Stop 10/23/17 at 08:27; Status DC Enoxaparin Sodium (Lovenox Inj) 40 mg Q24H SQ Last administered on 10/22/17at 10 :25; Start 10/22/17 at 10:00; Stop 10/22/17 at 13:24; Status DC Naloxone HCl (Narcan Inj) 0.4 mg UNSCH PRN IV PUSH SEE LABEL COMMENTS; Start at 08:45 Nitroglycerin (Nitrostat Sl) 0.4 mg Q5M PRN SL CHEST PAIN Last administered on 10/26/17at 08:55; Start 10/22/17 at 08:45 Aspirin (Aspirin Chew) 81 mg ONCE ONCE CHEW Last administered on 10/22/17at 09: 22; Start 10/22/17 at 08:45; Stop 10/22/17 at 08:46; Status DC Amlodipine Besylate (Norvasc) 5 mg DAILY PO ; Start 10/22/17 at 09:00; Stop 03/31 at 13:24; Status DC Aspirin (Aspirin Chew) 81 mg DAILY CHEW Last administered on 10/30/17at 08:32; Start 10/22/17 at 09:00; Stop 10/30/17 at 12:08; Status DC Atorvastatin Calcium (Lipitor) 10 mg HS PO Last administered on 10/29/17at 21:39 ; Start 10/22/17 at 21:00 Famotidine (Pepcid) 20 mg HS PO Last administered on 10/29/17at 21:39; Start 03/31 at 21:00 Furosemide (Lasix) 40 mg BID@18 PO Last administered on 10/25/17at 09:56; Start 10/22/17 at 09:00; Stop 10/25/17 at 13:23; Status DC Isosorbide Mononitrate (Imdur) 60 mg BID@0700,2100 PO Last administered on 10/25at 06:11; Start 10/22/17 at 21:00; Stop 10/25/17 at 13:23; Status DC Metformin HCl (Glucophage) 500 mg BIDPC PO Last administered on 10/29/17at 17:36 ; Start 10/22/17 at 09:00 Metoprolol Succinate (Toprol Xl) 25 mg DAILY PO ; Start 10/22/17 at 09:00; Stop 10/22/17 at 13:24; Status DC Morphine Sulfate (Oramorph Sr) 60 mg Q8H PO Last administered on 10/30/17at 01: 53; Start 10/22/17 at 10:00 Oxycodone/ Acetaminophen (Percocet 10-325 Mg) 1 tab Q6H PRN PO PAIN 3-10 Last administered on 10/30/17at 08:33; Start 10/22/17 at 08:45; Stop 10/30/17 at 13:18 ; Status DC Pantoprazole Sodium (Protonix) 40 mg DAILYAC PO Last administered on 10/30/17 08:38; Start 10/23/17 at 08:00 Potassium Chloride (KCl) 20 meq DAILY PO Last administered on 10/30/17at 08:39; Start 10/22/17 at 09:00 Ranolazine (Ranexa) 1,000 mg Q12HR PO Last administered on 10/30/17at 08:32; Start 10/22/17 at 11:00 Sucralfate (Carafate Liq) 1 gm ACHS PO Last administered on 10/30/17at 08:33; Start 10/22/17 at 12:00 Tiotropium [place] (Spiriva Inh) 36 mcg DAILY INH ; Start 10/22/17 at 11:00; Stop 10/22/17 at 11:49; Status DC Patient Own Medication PT OWN MED: SPIR... DAILY INH ; Start 10/23/17 at 09:00; Status Future Hold Amlodipine Besylate (Norvasc) 2.5 mg DAILY PO Last administered on 10/23/17at 09 :29; Start 10/23/17 at 09:00; Stop 10/25/17 at 13:23; Status DC Metoprolol Succinate (Toprol Xl) 50 mg DAILY PO Last administered on 10/26/17at 08:57; Start 10/23/17 at 09:00; Stop 10/27/17 at 08:24; Status DC Apixaban (Eliquis) 5 mg BID PO Last administered on 10/29/17at 08:44; Start 03/31 at 21:00; Stop 10/29/17 at 12:15; Status DC Miscellaneous (Pill Splitter) 1 ea UNSCH PRN OTHER SEE LABEL COMMENTS; Start at 14:00 Ondansetron HCl (Zofran Odt) 4 mg Q6H PRN PO nausea Last administered on at 06:49; Start 10/23/17 at 08:30; Stop 10/30/17 at 13:19; Status DC Metoprolol Tartrate (Lopressor Inj) 5 mg ONCE ONCE IV PUSH Last administered on 10/23/17at 14:19; Start 10/23/17 at 14:15; Stop 10/23/17 at 14:16; Status DC Amiodarone HCl 150 mg/Dextrose 103 ml @ 600 mls/hr Q11M ONCE IV Last administered on 10/23/17at 15:05; Start 10/23/17 at 15:00; Stop 10/23/17 at 15:10 ; Status DC Amiodarone HCl 450 mg/Sodium Chloride 250 ml @ 33.33 mls/ hr Q7H31M PRN IV Per Protocol Last administered on 10/24/17at 03:08; Start 10/23/17 at 15:00; Status Future Hold Morphine Sulfate (Morphine Inj) 2 mg ONCE ONCE IV PUSH Last administered on 04/30at 14:45; Start 10/23/17 at 14:45; Stop 10/23/17 at 14:54; Status DC Morphine Sulfate (Morphine Inj) 2 mg Q4H PRN IV PUSH chest pain/breakthrough pain Last administered on 10/27/17at 09:15; Start 10/23/17 at 16:00 Metoprolol Tartrate (Lopressor Inj) 5 mg NOW ONCE IV PUSH Last administered on 10/23/17at 16:00; Start 10/23/17 at 16:15; Stop 10/23/17 at 16:16; Status DC Esmolol HCl/ Sodium Chloride 250 ml @ 7.908 mls/ hr TITRATE PRN IV Blood Pressure Management Last administered on 10/23/17at 17:50; Start 10/23/17 at 16: 15; Stop 10/23/17 at 18:12; Status DC Esmolol HCl (Brevibloc Bolus Inj) 13 mg BOLUS PRN IV PUSH Rebolus; Start at 16:15; Status Cancel Metoprolol Tartrate (Lopressor Inj) 5 mg NOW ONCE IV PUSH Last administered on 10/23/17at 16:19; Start 10/23/17 at 16:15; Stop 10/23/17 at 16:16; Status DC Esmolol HCl/ Sodium Chloride 250 ml @ 21.3 mls/hr TITRATE PRN IV Blood Pressure Management Last administered on 10/23/17at 18:39; Start 10/23/17 at 18: 15; Stop 10/30/17 at 12:08; Status DC Esmolol HCl (Brevibloc Bolus Inj) 35.5 mg BOLUS PRN IV PUSH Rebolus; Start 04/30 at 18:30; Status Cancel Esmolol HCl (Brevibloc Bolus Inj) 35.5 mg BOLUS PRN IV PUSH Rebolus; Start 04/30 at 18:30; Status Cancel Esmolol HCl (Brevibloc Bolus Inj) 35.5 mg BOLUS PRN IV PUSH Rebolus; Start 04/30 at 18:30; Status Cancel Esmolol HCl (Brevibloc Bolus Inj) 35.5 mg BOLUS PRN IV REBOLUS Last administered on 10/23/17at 18:40; Start 10/23/17 at 18:30 Dextrose (D50w (Vial) Inj) 50 ml UNSCH PRN IV PUSH HYPOGLYCEMIA-SEE COMMENTS; Start 10/24/17 at 08:15 Glucagon (Glucagon Inj) 1 mg UNSCH PRN OTHER HYPOGLYCEMIA-SEE COMMENTS; Start 10/24/17 at 08:15 Insulin Aspart (NovoLOG SUPPLEMENTAL SCALE) 1 ACHS SLIDING SCALE SQ Last administered on 10/30/17at 16:21; Start 10/24/17 at 12:00 Sodium Chloride 500 ml @ 500 mls/hr Q1H IV Last administered on 10/24/17at 09: 19; Start 10/24/17 at 09:00; Stop 10/24/17 at 09:59; Status DC Amiodarone HCl (Cordarone) 200 mg Q12HR PO Last administered on 10/24/17at 21:04 ; Start 10/24/17 at 09:00; Stop 10/25/17 at 13:23; Status DC Sodium Chloride 500 ml @ 500 mls/hr BOLUS ONCE IV Last administered on at 11:37; Start 10/24/17 at 11:45; Stop 10/24/17 at 12:44; Status DC Furosemide (Lasix Inj) 20 mg ONCE PRN IV PUSH Dyspnea; Start 10/24/17 at 11:15 ; Stop 10/25/17 at 11:14; Status DC Sodium Chloride 250 ml @ 250 mls/hr BOLUS ONCE IV Last administered on at 09:12; Start 10/25/17 at 09:00; Stop 10/25/17 at 09:59; Status DC Amiodarone HCl (Cordarone) 200 mg DAILY PO Last administered on 10/26/17at 15:10 ; Start 10/26/17 at 09:00; Stop 10/27/17 at 08:24; Status DC Furosemide (Lasix) 40 mg DAILY PO Last administered on 10/30/17at 08:32; Start 10/26/17 at 09:00 Isosorbide Mononitrate (Imdur) 60 mg DAILY PO ; Start 10/26/17 at 09:00; Stop at 07:18; Status DC Potassium Chloride (KCl) 30 meq ONCE ONCE PO Last administered on 10/25/17at 17 :43; Start 10/25/17 at 17:15; Stop 10/25/17 at 17:30; Status DC Isosorbide Mononitrate (Imdur) 30 mg DAILY PO Last administered on 10/28/17at 09 :50; Start 10/27/17 at 09:00 Amiodarone HCl (Cordarone) 400 mg DAILY PO Last administered on 10/28/17at 09:51 ; Start 10/27/17 at 09:00; Stop 10/29/17 at 07:16; Status DC Metoprolol Succinate (Toprol Xl) 25 mg DAILY PO Last administered on 10/28/17at 09:51; Start 10/27/17 at 09:00 Amiodarone HCl (Cordarone) 200 mg DAILY PO Last administered on 10/29/17at 08:44 ; Start 10/29/17 at 09:00; Stop 10/30/17 at 12:08; Status DC Sodium Chloride 500 ml @ 30 mls/hr CONTINUOUS IV ; Start 10/29/17 at 12:15 Sodium Chloride 500 ml @ 30 mls/hr CONTINUOUS IV ; Start 10/29/17 at 12:15 Heparin Sodium/ Sodium Chloride 500 ml @ As Directed STK-MED ONCE .ROUTE ; Start 10/30/17 at 08:58; Stop 10/30/17 at 08:59; Status DC Levofloxacin/ Dextrose 100 ml @ As Directed STK-MED ONCE IV ; Start 10/30/17 at 08:58; Stop 10/30/17 at 08:59; Status DC Heparin Sodium (Porcine) (Heparin Inj) 10,000 units STK-MED ONCE .ROUTE ; Start 10/30/17 at 08:58; Stop 10/30/17 at 08:59; Status DC Heparin Sodium/ Sodium Chloride 500 ml @ As Directed STK-MED ONCE .ROUTE ; Start 10/30/17 at 09:20; Stop 10/30/17 at 09:21; Status DC Heparin Sodium/ Dextrose 250 ml @ As Directed STK-MED ONCE .ROUTE ; Start 10/30 at 09:21; Stop 10/30/17 at 09:22; Status DC Fentanyl Citrate (fentaNYL INJ) 100 mcg STK-MED ONCE .ROUTE ; Start 10/30/17 at 09:21; Stop 10/30/17 at 09:22; Status DC Midazolam HCl (Versed Inj) 2 mg STK-MED ONCE .ROUTE ; Start 10/30/17 at 09:21; Stop 10/30/17 at 09:22; Status DC Heparin Sodium (Porcine) (Heparin Inj) 20,000 units STK-MED ONCE .ROUTE ; Start 10/30/17 at 09:22; Stop 10/30/17 at 09:23; Status DC Isoproterenol HCl 50 ml @ As Directed STK-MED ONCE IV ; Start 10/30/17 at 09:22 ; Stop 10/30/17 at 09:23; Status DC Levofloxacin/ Dextrose 100 ml @ As Directed STK-MED ONCE IV ; Start 10/30/17 at 09:22; Stop 10/30/17 at 09:23; Status DC Sodium Chloride 250 ml @ As Directed STK-MED ONCE .ROUTE ; Start 10/30/17 at 10 :08; Stop 10/30/17 at 10:09; Status DC Isoproterenol HCl 50 ml @ As Directed STK-MED ONCE IV ; Start 10/30/17 at 11:22 ; Stop 10/30/17 at 11:23; Status DC Protamine Sulfate (Protamine Sulfate Inj) 50 mg STK-MED ONCE .ROUTE ; Start at 11:30; Stop 10/30/17 at 11:31; Status DC Oxycodone/ Acetaminophen (Percocet 5-325 Mg) 1 tab Q4H PRN PO PAIN SCALE 1 TO 4 Last administered on 10/30/17at 15:38; Start 10/30/17 at 12:15 Oxycodone/ Acetaminophen (Percocet 5-325 Mg) 2 tab Q4H PRN PO PAIN SCALE 5 TO 10; Start 10/30/17 at 12:15 Lorazepam (Ativan Inj) 0.5 mg UNSCH PRN IV PUSH ANXIETY; Start 10/30/17 at 12: 15; Stop 10/31/17 at 12:14 Atropine Sulfate (Atropine Inj) 0.5 mg UNSCH PRN IV PUSH VAGAL REPONSE; Start 10/30/17 at 12:15 Sodium Chloride 250 ml @ 500 mls/hr ONCE PRN IV VAGAL REPONSE; Start 10/30/17 at 12:15; Stop 10/31/17 at 12:14 Ondansetron HCl (Zofran Odt) 4 mg Q4H PRN PO NAUSEA; Start 10/30/17 at 12:15 Lidocaine HCl (Xylocaine 1% Inj (50 ml)) 10 ml UNSCH PRN INFIL SHEATH REMOVAL; Start 10/30/17 at 12:15; Stop 10/31/17 at 12:14 Bacitracin (Bacitracin Oint Packet) 0.9 gm ONCE ONCE TOP ; Start 10/30/17 at 12 :15; Stop 10/30/17 at 12:47; Status DC Apixaban (Eliquis) 5 mg BID PO ; Start 10/30/17 at 21:00 Morphine Sulfate (*morphine INJ PERIprocedure ONLY) 8 mg STK-MED ONCE .ROUTE Last administered on 10/30/17at 12:16; Start 10/30/17 at 12:16; Stop 10/30/17 at 12:17; Status DC Morphine Sulfate (*morphine INJ PERIprocedure ONLY) 8 mg STK-MED ONCE .ROUTE Last administered on 10/30/17at 12:33; Start 10/30/17 at 12:33; Stop 10/30/17 at 12:34; Status [place] Miscellaneous Information [place] [place] [facility] ALL NURSING DEPARTME... UNSCH PRN .XX SEE LABEL COMMENTS; Start 10/30/17 at 12:10; Stop 10/31/17 at 12: 09 A/P Problem List: (1) Paroxysmal atrial fibrillation with rapid ventricular response ICD Code: I48.0 - Paroxysmal atrial fibrillation Status: Acute (2) Chest pain ICD Code: R07.9 - Chest pain, unspecified Status: Acute (3) CAD (coronary artery disease) ICD Code: I25.10 - CAD (coronary artery disease) Status: Chronic Assessment and Plan 72 years old female NSTEMI with known CAD Patient had recent AL on her last hospitalization, discharged only 4 days ago Medical management recommended at that time due to severe vessel disease, history of CABG, history of multiple stents Nitroglycerin as needed, oxygen as needed on BB- Toprol 50 mg XL- dose down to 25 mg XL daily /Nitrates- Imdur 30 mg with Appreciate cardiology following- Paroxysmal Atrial fibrillation with RVR- now in SR- HR in the 50s Admitted with this condition, temporarily resolved but returned 10/24 requiring a transferred to CVICU amiodarone 200 mg daily per cardio recommendations Appreciate cardiology consult, seen by Dr. Hernandez- plan for EP study on eliquis Had EP study today with cardiac ablation Hypotension- improved- up and ambulating - continue to monitor and adjust dosages - cardiology ff h/o COPD - good sats at room air Continue home medications, stable at this time Type 2 diabetes Sliding scale insulin coverage with Accu-Cheks Diabetic diet resume meds at home DVT prophylaxis Lovenox DC planning once cleared with cardiology CM consul for home health care arrangement PCP- Dr. Davison Hopefully discharge to home tomorrow we will get a.m. labs Discharge Planning If labs are stable we will discharge to home tomorrow Problem Qualifiers (1) Chest pain: Qualified Codes: R07.2 - Precordial pain (2) CAD (coronary artery disease): Qualified Codes: I25.10 - Atherosclerotic heart disease of [place] coronary artery without angina pectoris Bart Radford DO Oct 30, 2017 17:03
[2017-10-30] MEDS: ATORVASTATIN 10 MG TAB PO SCH (21:59)
[2017-10-30] MEDS: APIXABAN 5 MG TABLET PO SCH (21:59)
[2017-10-30] MEDS: FAMOTIDINE 20 MG TAB PO SCH (21:59)
[2017-10-31] VITALS (24 sets, daily range): BP systolic 87–112; BP diastolic 51–67; PULSE 57–68; RESP 18–21; TEMP 98.2–98.4; O2SAT 92–98
[2017-10-31] MEDS: MORPHINE SULFATE 60 MG CONTROLLED RELEASE TAB PO SCH ×3 (03:10→17:46)
[2017-10-31 04:22] LABS: AUTOMATED NEUTROPHIL # 5.7 TH/MM3 (1.8-7.7); BASOPHIL % 0.3 % (0.0-2.0); EOSINOPHIL # 0.2 TH/MM3 (0-0.4); EOSINOPHIL % 2.4 % (0.0-4.0); HEMATOCRIT 39.1 % (35.0-46.0); HEMOGLOBIN 13.1 GM/DL (11.6-15.3); LYMPH % 14.7 % (9.0-44.0); LYMPHOCYTE # 1.1 TH/MM3 (1.0-4.8); MEAN CELL VOLUME 85.1 FL (80.0-100.0); MEAN CORPUSCULAR HEMOGLOBIN 28.5 PG (27.0-34.0); MEAN CORPUSCULAR HGB CONC 33.5 % (32.0-36.0); MEAN PLATELET VOLUME 8.4 FL (7.0-11.0); MONO % 5.5 % (0.0-8.0); MONOCYTE # 0.4 TH/MM3 (0-0.9); NEUT % 77.1 % (16.0-70.0); PLATELET COUNT 110 TH/MM3 (150-450); RED BLOOD COUNT 4.59 MIL/MM3 (4.00-5.30); RED CELL DISTRIBUTION WIDTH 15.7 % (11.6-17.2); WHITE BLOOD COUNT 7.4 TH/MM3 (4.0-11.0)
[2017-10-31 04:28] LABS: INTERNATIONAL NORMALIZED RATIO 1.1 RATIO; PROTHROMBIN TIME - PATIENT 10.9 SEC (9.8-11.6)
[2017-10-31 04:35] LABS: ALBUMIN 2.9 GM/DL (3.4-5.0); ALT (GPT) 14 U/L (10-53); AST (GOT) 28 U/L (15-37); BICARBONATE 27.9 MEQ/L (21.0-32.0); BLOOD UREA NITROGEN 9 MG/DL (7-18); CALCIUM 8.2 MG/DL (8.5-10.1); CHLORIDE 105 MEQ/L (98-107); CREATININE 0.83 MG/DL (0.50-1.00); GLOMERULAR FILTRATION RATE 68 ML/MIN (>89); GLUCOSE,RANDOM 99 MG/DL (74-106); MAGNESIUM 1.7 MG/DL (1.5-2.5); PHOSPHORUS 3.5 MG/DL (2.5-4.9); SODIUM (NA) 141 MEQ/L (136-145)
[2017-10-31 04:43] LABS: ALKALINE PHOSPHATASE 93 U/L (45-117); FREE T4 1.09 NG/DL (0.76-1.46); TOTAL BILIRUBIN ADULT 0.8 MG/DL (0.2-1.0); TOTAL PROTEIN 5.6 GM/DL (6.4-8.2)
[2017-10-31] MEDS: SUCRALFATE 1 GM/10 ML CUP PO SCH ×4 (07:48→20:28)
[2017-10-31] MEDS: ISOSORBIDE MONONITRATE 30 MG CR TAB (IMDUR) PO SCH (07:48)
[2017-10-31] MEDS: FUROSEMIDE 40 MG TAB PO SCH (07:49)
[2017-10-31] MEDS: RANOLAZINE 500 MG EXTENDED RELEASE TAB PO SCH ×2 (07:49→20:28)
[2017-10-31] MEDS: PANTOPRAZOLE SOD 40 MG DELAYED RELEASE TAB PO SCH (07:49)
[2017-10-31] MEDS: POTASSIUM CHLORIDE 20 MEQ CONTROLLED RELEASE TAB PO SCH (07:49)
[2017-10-31] MEDS: metFORMIN HCL 500 MG TAB PO SCH ×2 (07:49→17:46)
[2017-10-31] MEDS: APIXABAN 5 MG TABLET PO SCH ×2 (07:50→20:29)
[2017-10-31] MEDS: INSULIN ASPART SUPPLEMENTAL SCALE SQ SCH ×4 (08:00→20:30)
[2017-10-31] MEDS: METOPROLOL SUCCINATE 50 MG EXTENDED RELEASE TAB PO SCH (08:00)
[2017-10-31] MEDS: SODIUM CHLORIDE 0.9% FLUSH 10 ML FLUSH IV FLUSH SCH ×2 (08:00→20:30)
--- NOTE | 2017-10-31 08:28 | PD.CARD.PN ---
Subjective Subjective Remarks Feeling better today. Objective Medications Current Medications Medications (Trade) Dose Ordered Sig/Indu Route Start Time Stop Time Status Last Admin (NS Flush) 2 ml UNSCH PRN IV FLUSH 10/22/17 08:45 (NS Flush) 2 ml BID IV FLUSH 10/22/17 09:00 10/31/17 08:00 (Narcan Inj) 0.4 mg UNSCH PRN IV PUSH 10/22/17 08:45 (Nitrostat Sl) 0.4 mg Q5M PRN SL 10/22/17 08:45 10/26/17 08:55 (Lipitor) 10 mg HS PO 10/22/17 21:00 10/30/17 21:59 (Pepcid) 20 mg HS PO 10/22/17 21:00 10/30/17 21:59 (Glucophage) 500 mg BIDPC PO 10/22/17 09:00 10/31/17 07:49 (Oramorph Sr) 60 mg Q8H PO 10/22/17 10:00 10/31/17 03:10 (Protonix) 40 mg DAILYAC PO 10/23/17 08:00 10/31/17 07:49 (KCl) 20 meq DAILY PO 10/22/17 09:00 10/31/17 07:49 (Ranexa) 1,000 mg Q12HR PO 10/22/17 11:00 10/31/17 07:49 (Carafate Liq) 1 gm ACHS PO 10/22/17 12:00 10/31/17 07:48 Patient Own Medication PT OWN MED: SPIR... DAILY INH 10/23/17 09:00 Future Hold (Pill Splitter) 1 ea UNSCH PRN OTHER 10/22/17 14:00 Amiodarone HCl 450 mg/Sodium Chloride 250 ml @ 33.33 mls/ hr Q7H31M PRN IV 10/23/17 15:00 Future Hold 10/24/17 03:08 (Morphine Inj) 2 mg Q4H PRN IV PUSH 10/23/17 16:00 10/27/17 09:15 (Brevibloc Bolus Inj) 35.5 mg BOLUS PRN IV 10/23/17 18:30 10/23/17 18:40 (D50w (Vial) Inj) 50 ml UNSCH PRN IV PUSH 10/24/17 08:15 (Glucagon Inj) 1 mg UNSCH PRN OTHER 10/24/17 08:15 (NovoLOG SUPPLEMENTAL SCALE) 1 ACHS SLIDING SCALE SQ 10/24/17 12:00 10/30/17 16:21 (Lasix) 40 mg DAILY PO 10/26/17 09:00 10/31/17 07:49 (Imdur) 30 mg DAILY PO 10/27/17 09:00 10/31/17 07:48 (Toprol Xl) 25 mg DAILY PO 10/27/17 09:00 10/28/17 09:51 Sodium Chloride 500 ml @ 30 mls/hr CONTINUOUS IV 10/29/17 12:15 Sodium Chloride 500 ml @ 30 mls/hr CONTINUOUS IV 10/29/17 12:15 (Percocet 5-325 Mg) 1 tab Q4H PRN PO 10/30/17 12:15 10/30/17 15:38 (Percocet 5-325 Mg) 2 tab Q4H PRN PO 10/30/17 12:15 (Ativan Inj) 0.5 mg UNSCH PRN IV PUSH 10/30/17 12:15 10/31/17 12:14 (Atropine Inj) 0.5 mg UNSCH PRN IV PUSH 10/30/17 12:15 Sodium Chloride 250 ml @ 500 mls/hr ONCE PRN IV 10/30/17 12:15 10/31/17 12:14 (Zofran Odt) 4 mg Q4H PRN PO 10/30/17 12:15 10/30/17 18:28 (Xylocaine 1% Inj (50 ml)) 10 ml UNSCH PRN INFIL 10/30/17 12:15 10/31/17 12:14 (Eliquis) 5 mg BID PO 10/30/17 21:00 10/31/17 07:50 [place] [place] [facility] [place] ALL NURSING DEPARTME... UNSCH PRN .XX 10/30/17 12:10 10/31/17 12:09 Vital Signs / I&O Vital Signs Date Time Temp Pulse Resp B/P (MAP) Pulse Ox O2 Delivery O2 Flow Rate FiO2 10/31/17 07:00 63 10/31/17 06:00 66 10/31/17 04:10 20 10/31/17 03:00 98.4 64 18 87/51 (63) 92 18 03:00 62 18 23:00 71 10/30/17 23:00 98.4 62 18 95/53 (67) 93 10/30/17 19:00 98.4 64 18 84/51 (62) 92 10/30/17 19:00 64 18 18:23 74 10/30/17 17:04 73 10/30/17 16:21 18 10/30/17 16:14 66 10/30/17 15:13 67 10/30/17 15:13 98.6 70 18 116/65 (82) 93 10/30/17 15:13 18 10/30/17 15:12 18 10/30/17 14:01 63 10/30/17 13:36 68 10/30/17 12:45 98.1 69 14 131/78 (95) 99 Nasal Cannula 2 10/30/17 12:30 72 14 122/69 (86) 99 Nasal Cannula 2 10/30/17 12:15 76 14 137/76 (96) 98 Nasal Cannula 2 10/30/17 12:10 98.1 80 14 129/77 (94) 97 Nasal Cannula 2 10/30/17 08:30 51 10/30/17 08:30 98.2 54 18 107/56 (73) 94 I/O 10/30/17 10/30/17 10/30/17 10/31/17 10/31/17 10/31/17 07:00 15:00 23:00 07:00 15:00 23:00 Intake Total 480 ml 480 ml 720 ml Output Total 500 ml Balance 480 ml -20 ml 720 ml Intake Oral 480 ml 480 ml 720 ml Output Urine Total 500 ml # Voids 4 2 # Bowel Movements 0 0 0 Physical Exam GENERAL: Well-nourished, well-developed patient. SKIN: Warm and dry. Groin site soft without bruising or bleeding. HEAD: Normocephalic. EYES: No scleral icterus. No injection or drainage. NECK: Supple, trachea midline. No JVD or lymphadenopathy. CARDIOVASCULAR: Regular rate and rhythm without murmurs, gallops, or rubs. RESPIRATORY: Breath sounds equal bilaterally. No accessory muscle use. GASTROINTESTINAL: Abdomen soft, non-tender, nondistended. EXTREMITIES: No cyanosis, or edema. NEUROLOGICAL: Awake, alert, and oriented x 3. Non-focal. Laboratory Laboratory Tests Test 10/31/17 03:50 White Blood Count 7.4 TH/MM3 Red Blood Count 4.59 MIL/MM3 Hemoglobin 13.1 GM/DL Hematocrit 39.1 % Mean Corpuscular Volume 85.1 FL Mean Corpuscular Hemoglobin 28.5 PG Mean Corpuscular Hemoglobin Concent 33.5 % Red Cell Distribution Width 15.7 % Platelet Count 110 TH/MM3 Mean Platelet Volume 8.4 FL Neutrophils (%) (Auto) 77.1 % Lymphocytes (%) (Auto) 14.7 % Monocytes (%) (Auto) 5.5 % Eosinophils (%) (Auto) 2.4 % Basophils (%) (Auto) 0.3 % Neutrophils # (Auto) 5.7 TH/MM3 Lymphocytes # (Auto) 1.1 TH/MM3 Monocytes # (Auto) 0.4 TH/MM3 Eosinophils # (Auto) 0.2 TH/MM3 Basophils # (Auto) 0.0 TH/MM3 CBC Comment DIFF FINAL Differential Comment Prothrombin Time 10.9 SEC Prothromb Time International Ratio 1.1 RATIO Activated Partial Thromboplast Time 28.2 SEC Blood Urea Nitrogen 9 MG/DL Creatinine 0.83 MG/DL Random Glucose 99 MG/DL Total Protein 5.6 GM/DL Albumin 2.9 GM/DL Calcium Level 8.2 MG/DL Phosphorus Level 3.5 MG/DL Magnesium Level 1.7 MG/DL Alkaline Phosphatase 93 U/L Aspartate Amino Transf (AST/SGOT) 28 U/L Alanine Aminotransferase (ALT/SGPT) 14 U/L Total Bilirubin 0.8 MG/DL Sodium Level 141 MEQ/L Potassium Level 4.0 MEQ/L Chloride Level 105 MEQ/L Carbon Dioxide Level 27.9 MEQ/L Anion Gap 8 MEQ/L Estimat Glomerular Filtration Rate 68 ML/MIN Free Thyroxine 1.09 NG/DL Thyroid Stimulating Hormone 3rd Gen 5.540 uIU/ML Imaging Last Impressions Chest X-Ray 10/22/17 0631 Signed Impressions: CONCLUSION: Cardiomegaly with trace pleural effusions and minimal basilar atelectasis. Assessment and Plan Problem List: (1) Paroxysmal atrial fibrillation with rapid ventricular response ICD Codes: I48.0 - Paroxysmal atrial fibrillation Status: Acute Plan: Normal sinus rhythm status post ablation. (2) S/P ablation of atrial fibrillation ICD Codes: Z98.890 - Other specified postprocedural states; Z86.79 - Personal history of other diseases of the circulatory system Plan: Stable for discharge home from EP standpoint status post atrial fibrillation ablation. Continue Eliquis. Follow-up with Dr. Hernandez in 3 weeks per my discussion with him. Mallory Francis Oct 31, 2017 08:28
--- NOTE | 2017-10-31 10:25 | HHI.PR ---
Subjective Remarks 10-30 Patient underwent cardiac catheterization and cardiac ablation for atrial fibrillation today with Dr. SUSAN LUCIO RN AND PT HAS SOME NAUSEA NOW HOPEFULLY DISCHARGE TO HOME TOMORROW AM LABS 10-31 PATIENT COMPLAINS OF ABDOMINAL PAIN AND CHEST PAIN DW RN AND PT COMPLAINS OF NAUSEA AND BLOATING TROPONIN IS LOWER THAN PRIOR IN THE ADMISSION SO TRENDING DOWN HAD CHEST PAIN EARLIER- IS CHRONICALLY ON IMDUR NOW REFUSES TO GO HOME Objective Vitals Vital Signs Date Time Temp Pulse Resp B/P (MAP) Pulse Ox O2 Delivery O2 Flow Rate FiO2 10/31/17 10:00 68 10/31/17 09:00 65 10/31/17 08:30 100/57 (71) 10/31/17 08:15 112/58 (76) 10/31/17 08:00 65 10/31/17 08:00 98.3 63 18 89/67 (74) 92 10/31/17 07:00 63 10/31/17 06:00 66 10/31/17 04:10 20 10/31/17 03:00 98.4 64 18 87/51 (63) 92 10/31/17 03:00 62 10/30/17 23:00 71 10/30/17 23:00 98.4 62 18 95/53 (67) 93 10/30/17 19:00 98.4 64 18 84/51 (62) 92 10/30/17 19:00 64 10/30/17 18:23 74 10/30/17 17:04 73 10/30/17 16:21 18 10/30/17 16:14 66 10/30/17 15:13 67 10/30/17 15:13 98.6 70 18 116/65 (82) 93 10/30/17 15:13 18 10/30/17 15:12 18 10/30/17 14:01 63 10/30/17 13:36 68 10/30/17 12:45 98.1 69 14 131/78 (95) 99 Nasal Cannula 2 10/30/17 12:30 72 14 122/69 (86) 99 Nasal Cannula 2 10/30/17 12:15 76 14 137/76 (96) 98 Nasal Cannula 2 10/30/17 12:10 98.1 80 14 129/77 (94) 97 Nasal Cannula 2 I/O 6/19/10/30/17 10/30/17 10/31/17 10/31/17 10/31/17 07:00 15:00 23:00 07:00 15:00 23:00 Intake Total 480 ml 480 ml 720 ml Output Total 500 ml Balance 480 ml -20 ml 720 ml Intake Oral 480 ml 480 ml 720 ml Output Urine Total 500 ml # Voids 4 2 # Bowel Movements 0 0 0 Result Diagram: 10/31/17 0350 10/31/17 0350 Other Results Laboratory Tests Test 10/31/17 03:50 10/31/17 09:25 White Blood Count 7.4 TH/MM3 Red Blood Count 4.59 MIL/MM3 Hemoglobin 13.1 GM/DL Hematocrit 39.1 % Mean Corpuscular Volume 85.1 FL Mean Corpuscular Hemoglobin 28.5 PG Mean Corpuscular Hemoglobin Concent 33.5 % Red Cell Distribution Width 15.7 % Platelet Count 110 TH/MM3 Mean Platelet Volume 8.4 FL Neutrophils (%) (Auto) 77.1 % Lymphocytes (%) (Auto) 14.7 % Monocytes (%) (Auto) 5.5 % Eosinophils (%) (Auto) 2.4 % Basophils (%) (Auto) 0.3 % Neutrophils # (Auto) 5.7 TH/MM3 Lymphocytes # (Auto) 1.1 TH/MM3 Monocytes # (Auto) 0.4 TH/MM3 Eosinophils # (Auto) 0.2 TH/MM3 Basophils # (Auto) 0.0 TH/MM3 CBC Comment DIFF FINAL Differential Comment Prothrombin Time 10.9 SEC Prothromb Time International Ratio 1.1 RATIO Activated Partial Thromboplast Time 28.2 SEC Blood Urea Nitrogen 9 MG/DL Creatinine 0.83 MG/DL Random Glucose 99 MG/DL Total Protein 5.6 GM/DL Albumin 2.9 GM/DL Calcium Level 8.2 MG/DL Phosphorus Level 3.5 MG/DL Magnesium Level 1.7 MG/DL Alkaline Phosphatase 93 U/L Aspartate Amino Transf (AST/SGOT) 28 U/L Alanine Aminotransferase (ALT/SGPT) 14 U/L Total Bilirubin 0.8 MG/DL Sodium Level 141 MEQ/L Potassium Level 4.0 MEQ/L Chloride Level 105 MEQ/L Carbon Dioxide Level 27.9 MEQ/L Anion Gap 8 MEQ/L Estimat Glomerular Filtration Rate 68 ML/MIN Free Thyroxine 1.09 NG/DL Thyroid Stimulating Hormone 3rd Gen 5.540 uIU/ML Troponin I 2.60 NG/ML Imaging Last Impressions Chest X-Ray 10/22/17 0631 Signed Impressions: CONCLUSION: Cardiomegaly with trace pleural effusions and minimal basilar atelectasis. Objective Remarks GENERAL: Awake alert and oriented 3 and talkative and cooperative SKIN: Warm and dry. HEAD: Atraumatic. Normocephalic. EYES: Pupils equal and round. No scleral icterus. No injection or drainage. Extraocular muscles intact ENT: No nasal bleeding or discharge. Mucous membranes pink and moist. Tongue is midline NECK: Trachea midline. No JVD. Supple CARDIOVASCULAR: Regular rate and rhythm. S1-S2 no S3 or S4 RESPIRATORY: No accessory muscle use. Clear to auscultation. Breath sounds equal bilaterally. GASTROINTESTINAL: Abdomen soft, non-tender, nondistended. Hepatic and splenic margins not palpable. Obese MUSCULOSKELETAL: Extremities without clubbing, cyanosis, or edema. No obvious deformities. NEUROLOGICAL: Awake and alert. No obvious cranial nerve deficits. Motor grossly within normal limits. 4 out of 5 muscle strength in the arms and legs. Normal speech. PSYCHIATRIC: Appropriate mood and affect; insight and judgment normal. Procedures CARDIAC ABLATION FOR AFIB 6- Medications and IVs Current Medications Nitroglycerin (Nitroglycerin 2% Oint) 1 inch ONCE ONCE TOP ; Start 10/22/17 at 06:45; Stop 10/22/17 at 06:46; Status DC Sodium Chloride (NS Flush) 2 ml UNSCH PRN IVF FLUSH AFTER USING IV ACCESS; Start 10/22/17 at 06:45; Stop 10/22/17 at 08:41; Status DC Sodium Chloride (NS Flush) 2 ml UNSCH PRN IV FLUSH FLUSH AFTER USING IV ACCESS ; Start 10/22/17 at 08:45 Sodium Chloride (NS Flush) 2 ml BID IV FLUSH Last administered on 10/31/17at 08: 00; Start 10/22/17 at 09:00 Ondansetron HCl (Zofran Inj) 4 mg Q6H PRN IVP NAUSEA OR VOMITING; Start at 08:45; Stop 10/23/17 at 08:27; Status DC Enoxaparin Sodium (Lovenox Inj) 40 mg Q24H SQ Last administered on 10/22/17at 10 :25; Start 10/22/17 at 10:00; Stop 10/22/17 at 13:24; Status DC Naloxone HCl (Narcan Inj) 0.4 mg UNSCH PRN IV PUSH SEE LABEL COMMENTS; Start at 08:45 Nitroglycerin (Nitrostat Sl) 0.4 mg Q5M PRN SL CHEST PAIN Last administered on 10/26/17at 08:55; Start 10/22/17 at 08:45 Aspirin (Aspirin Chew) 81 mg ONCE ONCE CHEW Last administered on 10/22/17at 09: 22; Start 10/22/17 at 08:45; Stop 10/22/17 at 08:46; Status DC Amlodipine Besylate (Norvasc) 5 mg DAILY PO ; Start 10/22/17 at 09:00; Stop 03/31 at 13:24; Status DC Aspirin (Aspirin Chew) 81 mg DAILY CHEW Last administered on 10/30/17at 08:32; Start 10/22/17 at 09:00; Stop 10/30/17 at 12:08; Status DC Atorvastatin Calcium (Lipitor) 10 mg HS PO Last administered on 10/30/17at 21:59 ; Start 10/22/17 at 21:00 Famotidine (Pepcid) 20 mg HS PO Last administered on 10/30/17at 21:59; Start 03/31 at 21:00 Furosemide (Lasix) 40 mg BID@09,18 PO Last administered on 10/25/17at 09:56; Start 10/22/17 at 09:00; Stop 10/25/17 at 13:23; Status DC Isosorbide Mononitrate (Imdur) 60 mg BID@0700,2100 PO Last administered on 10/25at 06:11; Start 10/22/17 at 21:00; Stop 10/25/17 at 13:23; Status DC Metformin HCl (Glucophage) 500 mg BIDPC PO Last administered on 10/31/17at 07:49 ; Start 10/22/17 at 09:00 Metoprolol Succinate (Toprol Xl) 25 mg DAILY PO ; Start 10/22/17 at 09:00; Stop 10/22/17 at 13:24; Status DC Morphine Sulfate (Oramorph Sr) 60 mg Q8H PO Last administered on 10/31/17at 03: 10; Start 10/22/17 at 10:00 Oxycodone/ Acetaminophen (Percocet 10-325 Mg) 1 tab Q6H PRN PO PAIN 3-10 Last administered on 10/30/17at 08:33; Start 10/22/17 at 08:45; Stop 10/30/17 at 13:18 ; Status DC Pantoprazole Sodium (Protonix) 40 mg DAILYAC PO Last administered on 10/31/17 07:49; Start 10/23/17 at 08:00 Potassium Chloride (KCl) 20 meq DAILY PO Last administered on 10/31/17 07:49; Start 10/22/17 at 09:00 Ranolazine (Ranexa) 1,000 mg Q12HR PO Last administered on 10/31/17 07:49; Start 10/22/17 at 11:00 Sucralfate (Carafate Liq) 1 gm ACHS PO Last administered on 10/31/17at 07:48; Start 10/22/17 at 12:00 Tiotropium [place] (Spiriva Inh) 36 mcg DAILY INH ; Start 10/22/17 at 11:00; Stop 10/22/17 at 11:49; Status DC Patient Own Medication PT OWN MED: SPIR... DAILY INH ; Start 10/23/17 at 09:00; Status Future Hold Amlodipine Besylate (Norvasc) 2.5 mg DAILY PO Last administered on 10/23/17at 09 :29; Start 10/23/17 at 09:00; Stop 10/25/17 at 13:23; Status DC Metoprolol Succinate (Toprol Xl) 50 mg DAILY PO Last administered on 10/26/17at 08:57; Start 10/23/17 at 09:00; Stop 10/27/17 at 08:24; Status DC Apixaban (Eliquis) 5 mg BID PO Last administered on 10/29/17at 08:44; Start 03/31 at 21:00; Stop 10/29/17 at 12:15; Status DC Miscellaneous (Pill Splitter) 1 ea UNSCH PRN OTHER SEE LABEL COMMENTS; Start at 14:00 Ondansetron HCl (Zofran Odt) 4 mg Q6H PRN PO nausea Last administered on at 06:49; Start 10/23/17 at 08:30; Stop 10/30/17 at 13:19; Status DC Metoprolol Tartrate (Lopressor Inj) 5 mg ONCE ONCE IV PUSH Last administered on 10/23/17at 14:19; Start 10/23/17 at 14:15; Stop 10/23/17 at 14:16; Status DC Amiodarone HCl 150 mg/Dextrose 103 ml @ 600 mls/hr Q11M ONCE IV Last administered on 10/23/17at 15:05; Start 10/23/17 at 15:00; Stop 10/23/17 at 15:10 ; Status DC Amiodarone HCl 450 mg/Sodium Chloride 250 ml @ 33.33 mls/ hr Q7H31M PRN IV Per Protocol Last administered on 10/24/17at 03:08; Start 10/23/17 at 15:00; Status Future Hold Morphine Sulfate (Morphine Inj) 2 mg ONCE ONCE IV PUSH Last administered on 04/30at 14:45; Start 10/23/17 at 14:45; Stop 10/23/17 at 14:54; Status DC Morphine Sulfate (Morphine Inj) 2 mg Q4H PRN IV PUSH chest pain/breakthrough pain Last administered on 10/27/17at 09:15; Start 10/23/17 at 16:00 Metoprolol Tartrate (Lopressor Inj) 5 mg NOW ONCE IV PUSH Last administered on 10/23/17at 16:00; Start 10/23/17 at 16:15; Stop 10/23/17 at 16:16; Status DC Esmolol HCl/ Sodium Chloride 250 ml @ 7.908 mls/ hr TITRATE PRN IV Blood Pressure Management Last administered on 10/23/17at 17:50; Start 10/23/17 at 16: 15; Stop 10/23/17 at 18:12; Status DC Esmolol HCl (Brevibloc Bolus Inj) 13 mg BOLUS PRN IV PUSH Rebolus; Start at 16:15; Status Cancel Metoprolol Tartrate (Lopressor Inj) 5 mg NOW ONCE IV PUSH Last administered on 10/23/17at 16:19; Start 10/23/17 at 16:15; Stop 10/23/17 at 16:16; Status DC Esmolol HCl/ Sodium Chloride 250 ml @ 21.3 mls/hr TITRATE PRN IV Blood Pressure Management Last administered on 10/23/17at 18:39; Start 10/23/17 at 18: 15; Stop 10/30/17 at 12:08; Status DC Esmolol HCl (Brev[place] Bolus Inj) 35.5 mg BOLUS PRN IV PUSH Rebolus; Start 04/30 at 18:30; Status Cancel Esmolol HCl (Brevibloc Bolus Inj) 35.5 mg BOLUS PRN IV PUSH Rebolus; Start 04/30 at 18:30; Status Cancel Esmolol HCl (Brevibloc Bolus Inj) 35.5 mg BOLUS PRN IV PUSH Rebolus; Start 04/30 at 18:30; Status Cancel Esmolol HCl ([place]rev[place]loc Bolus Inj) 35.5 mg BOLUS PRN IV REBOLUS Last administered on 10/23/17at 18:40; Start 10/23/17 at 18:30 Dextrose (D50w (Vial) Inj) 50 ml UNSCH PRN IV PUSH HYPOGLYCEMIA-SEE COMMENTS; Start 10/24/17 at 08:15 Glucagon (Glucagon Inj) 1 mg UNSCH PRN OTHER HYPOGLYCEMIA-SEE COMMENTS; Start 10/24/17 at 08:15 Insulin Aspart (NovoLOG SUPPLEMENTAL SCALE) 1 ACHS SLIDING SCALE SQ Last administered on 10/30/17at 16:21; Start 10/24/17 at 12:00 Sodium Chloride 500 ml @ 500 mls/hr Q1H IV Last administered on 10/24/17at 09: 19; Start 10/24/17 at 09:00; Stop 10/24/17 at 09:59; Status DC Amiodarone HCl (Cordarone) 200 mg Q12HR PO Last administered on 10/24/17at 21:04 ; Start 10/24/17 at 09:00; Stop 10/25/17 at 13:23; Status DC Sodium Chloride 500 ml @ 500 mls/hr BOLUS ONCE IV Last administered on at 11:37; Start 10/24/17 at 11:45; Stop 10/24/17 at 12:44; Status DC Furosemide (Lasix Inj) 20 mg ONCE PRN IV PUSH Dyspnea; Start 10/24/17 at 11:15 ; Stop 10/25/17 at 11:14; Status DC Sodium Chloride 250 ml @ 250 mls/hr BOLUS ONCE IV Last administered on at 09:12; Start 10/25/17 at 09:00; Stop 10/25/17 at 09:59; Status DC Amiodarone HCl (Cordarone) 200 mg DAILY PO Last administered on 10/26/17at 15:10 ; Start 10/26/17 at 09:00; Stop 10/27/17 at 08:24; Status DC Furosemide (Lasix) 40 mg DAILY PO Last administered on 10/31/17at 07:49; Start 10/26/17 at 09:00 Isosorbide Mononitrate (Imdur) 60 mg DAILY PO ; Start 10/26/17 at 09:00; Stop at 07:18; Status DC Potassium Chloride (KCl) 30 meq ONCE ONCE PO Last administered on 10/25/17at 17 :43; Start 10/25/17 at 17:15; Stop 10/25/17 at 17:30; Status DC Isosorbide Mononitrate (Imdur) 30 mg DAILY PO Last administered on 10/31/17at 07 :48; Start 10/27/17 at 09:00 Amiodarone HCl (Cordarone) 400 mg DAILY PO Last administered on 10/28/17at 09:51 ; Start 10/27/17 at 09:00; Stop 10/29/17 at 07:16; Status DC Metoprolol Succinate (Toprol Xl) 25 mg DAILY PO Last administered on 10/28/17at 09:51; Start 10/27/17 at 09:00 Amiodarone HCl (Cordarone) 200 mg DAILY PO Last administered on 10/29/17at 08:44 ; Start 10/29/17 at 09:00; Stop 10/30/17 at 12:08; Status DC Sodium Chloride 500 ml @ 30 mls/hr CONTINUOUS IV ; Start 10/29/17 at 12:15 Sodium Chloride 500 ml @ 30 mls/hr CONTINUOUS IV ; Start 10/29/17 at 12:15 Heparin Sodium/ Sodium Chloride 500 ml @ As Directed STK-MED ONCE .ROUTE ; Start 10/30/17 at 08:58; Stop 10/30/17 at 08:59; Status DC Levofloxacin/ Dextrose 100 ml @ As Directed STK-MED ONCE IV ; Start 10/30/17 at 08:58; Stop 10/30/17 at 08:59; Status DC Heparin Sodium (Porcine) (Heparin Inj) 10,000 units STK-MED ONCE .ROUTE ; Start 10/30/17 at 08:58; Stop 10/30/17 at 08:59; Status DC Heparin Sodium/ Sodium Chloride 500 ml @ As Directed STK-MED ONCE .ROUTE ; Start 10/30/17 at 09:20; Stop 10/30/17 at 09:21; Status DC Heparin Sodium/ Dextrose 250 ml @ As Directed STK-MED ONCE .ROUTE ; Start 10/30 at 09:21; Stop 10/30/17 at 09:22; Status DC Fentanyl Citrate (fentaNYL INJ) 100 mcg STK-MED ONCE .ROUTE ; Start 10/30/17 at 09:21; Stop 10/30/17 at 09:22; Status DC Midazolam HCl (Versed Inj) 2 mg STK-MED ONCE .ROUTE ; Start 10/30/17 at 09:21; Stop 10/30/17 at 09:22; Status DC Heparin Sodium (Porcine) (Heparin Inj) 20,000 units STK-MED ONCE .ROUTE ; Start 10/30/17 at 09:22; Stop 10/30/17 at 09:23; Status DC Isoproterenol HCl 50 ml @ As Directed STK-MED ONCE IV ; Start 10/30/17 at 09:22 ; Stop 10/30/17 at 09:23; Status DC Levofloxacin/ Dextrose 100 ml @ As Directed STK-MED ONCE IV ; Start 10/30/17 at 09:22; Stop 10/30/17 at 09:23; Status DC Sodium Chloride 250 ml @ As Directed STK-MED ONCE .ROUTE ; Start 10/30/17 at 10 :08; Stop 10/30/17 at 10:09; Status DC Isoproterenol HCl 50 ml @ As Directed STK-MED ONCE IV ; Start 10/30/17 at 11:22 ; Stop 10/30/17 at 11:23; Status DC Protamine Sulfate (Protamine Sulfate Inj) 50 mg STK-MED ONCE .ROUTE ; Start at 11:30; Stop 10/30/17 at 11:31; Status DC Oxycodone/ Acetaminophen (Percocet 5-325 Mg) 1 tab Q4H PRN PO PAIN SCALE 1 TO 4 Last administered on 10/30/17at 15:38; Start 10/30/17 at 12:15 Oxycodone/ Acetaminophen (Percocet 5-325 Mg) 2 tab Q4H PRN PO PAIN SCALE 5 TO 10; Start 10/30/17 at 12:15 Lorazepam (Ativan Inj) 0.5 mg UNSCH PRN IV PUSH ANXIETY; Start 10/30/17 at 12: 15; Stop 10/31/17 at 12:14 Atropine Sulfate (Atropine Inj) 0.5 mg UNSCH PRN IV PUSH VAGAL REPONSE; Start 10/30/17 at 12:15 Sodium Chloride 250 ml @ 500 mls/hr ONCE PRN IV VAGAL REPONSE; Start 10/30/17 at 12:15; Stop 10/31/17 at 12:14 Ondansetron HCl (Zofran Odt) 4 mg Q4H PRN PO NAUSEA Last administered on at 18:28; Start 10/30/17 at 12:15 Lidocaine HCl (Xylocaine 1% Inj (50 ml)) 10 ml UNSCH PRN INFIL SHEATH REMOVAL; Start 10/30/17 at 12:15; Stop 10/31/17 at 12:14 Bacitracin (Bacitracin Oint Packet) 0.9 gm ONCE ONCE TOP ; Start 10/30/17 at 12 :15; Stop 10/30/17 at 12:47; Status DC Apixaban (Eliquis) 5 mg BID PO Last administered on 10/31/17at 07:50; Start at 21:00 Morphine Sulfate (*morphine INJ PERIprocedure ONLY) 8 mg STK-MED ONCE .ROUTE Last administered on 10/30/17at 12:16; Start 10/30/17 at 12:16; Stop 10/30/17 at 12:17; Status DC Morphine Sulfate (*morphine INJ PERIprocedure ONLY) 8 mg STK-MED ONCE .ROUTE Last administered on 10/30/17at 12:33; Start 10/30/17 at 12:33; Stop 10/30/17 at 12:34; Status DC Miscellaneous Information ([facility]) ALL NURSING DEPARTME... UNSCH PRN .XX SEE LABEL COMMENTS; Start 10/30/17 at 12:10; Stop 10/31/17 at 12: 09 A/P Problem List: (1) Paroxysmal atrial fibrillation with rapid ventricular response ICD Code: I48.0 - Paroxysmal atrial fibrillation Status: Acute (2) Chest pain ICD Code: R07.9 - Chest pain, unspecified Status: Acute (3) CAD (coronary artery disease) ICD Code: I25.10 - CAD (coronary artery disease) Status: Chronic Assessment and Plan 72 years old female NSTEMI with known CAD Patient had recent SD on her last hospitalization, discharged only 4 days ago Medical management recommended at that time due to severe vessel disease, history of CABG, history of multiple stents Nitroglycerin as needed, oxygen as needed on BB- Toprol 50 mg XL- dose down to 25 mg XL daily /Nitrates- Imdur 30 mg with Appreciate cardiology following- CONTINUE IMDUR Paroxysmal Atrial fibrillation with RVR- now in SR- HR in the 50s Admitted with this condition, temporarily resolved but returned 10/24 requiring a transferred to CVICU amiodarone 200 mg daily per cardio recommendations Appreciate cardiology consult, seen by Dr. Hernandez- plan for EP study on eliquis Had EP study today with cardiac ablation Hypotension- improved- up and ambulating - continue to monitor and adjust dosages - cardiology ff h/o COPD - good sats at room air Continue home medications, stable at this time Type 2 diabetes Sliding scale insulin coverage with Accu-Cheks Diabetic diet resume meds at home ABDOMINAL PAIN- CHECK KUB DVT prophylaxis Lovenox DC planning once cleared with cardiology--CLEARED BY CARDIOLOGY CM consul for home health care arrangement PCP- Dr. Davison Hopefully discharge to home tomorrow we will get a.m. labs CLEARED BY CARDIOLOGY HAVING ABDOMINAL PAIN-IS ON MULTIPLE MEDS FOR THIS NAUSEA CONTINUE ZOFRAN PRN Discharge Planning If labs are stable we will discharge to home tomorrow Problem Qualifiers (1) Chest pain: Qualified Codes: R07.2 - Precordial pain (2) CAD (coronary artery disease): Qualified Codes: I25.10 - Atherosclerotic heart disease of [place] coronary artery without angina pectoris Bart Radford DO Oct 31, 2017 10:25
[2017-10-31] MEDS ORDERED: SIMETHICONE 80 MG CHEWABLE TAB CHEW PRN (10:45)
--- NOTE | 2017-10-31 11:37 | RADRPT ---
EXAM DATE: 10/31/2017 11:26 AM EDT AGE/SEX: 72 years / Female INDICATIONS: Nausea and vomiting. CLINICAL DATA: This is the patient's subsequent encounter. Patient reports that signs and symptoms h ave been present for 1 day and indicates a pain score of 3/10. MEDICAL/SURGICAL HISTORY: . Chronic obstructive pulmonary disease. Hypertension. CABG. COMPARISON: [facility], ABDOMEN KUB ONLY, 10/08/2017. . FINDINGS: There is a moderate amount of stool within the ascending and transverse colon. No findings to indica te a bowel obstruction are seen. There are surgical clips in the gallbladder fossa suggesting previou s cholecystectomy. No free air is identified. The visualized bony structures demonstrate degenerative changes but are ot herwise intact. CONCLUSION: No findings to indicate a bowel obstruction identified. Moderate amount of stool within the colon suggesting constipation. Electronically signed by: Juno Jarrett MD 10/31/2017 11:35 AM EDT
--- NOTE | 2017-10-31 13:42 | EKG ---
Date Performed: 10/31/2017 Time Performed: 07:50:38 PTAGE: 72 years EKG: Sinus rhythm . Anterolateral ST-T changes are nonspecific Borderline ECG PREVIOUS TRACING : 10/30/2017 12.29 DOCTOR: Ruslan Gonzalez Interpretating Date/Time 10/31/2017 13:41:02
--- NOTE | 2017-10-31 14:03 | EKG ---
Date Performed: 10/30/2017 Time Performed: 12:29:22 PTAGE: 72 years EKG: Sinus rhythm MODERATE ST DEPRESSION PROLONGED QT INTERVAL ABNORMAL ECG PREVIOUS TRACING : 10/24/2017 14.59 DOCTOR: Ruslan Gonzalez Interpretating Date/Time 10/31/2017 14:02:14
[2017-10-31] MEDS ORDERED: POLYETHYLENE GLYCOL 17 GM PKG PO ONE (15:30)
[2017-10-31] MEDS ORDERED: BISACODYL 10 MG SUPP RECTAL ONE (15:30)
[2017-10-31 17:26] LABS: HEMOGLOBIN A1C 7.5 % (4.3-6.0)
[2017-10-31] MEDS: FAMOTIDINE 20 MG TAB PO SCH (20:28)
[2017-10-31] MEDS: ATORVASTATIN 10 MG TAB PO SCH (20:29)
[2017-11-01] VITALS (13 sets, daily range): BP systolic 96–100; BP diastolic 52–59; PULSE 53–78; RESP 18–20; TEMP 98–98.1; O2SAT 93–95
[2017-11-01] MEDS: MORPHINE SULFATE 60 MG CONTROLLED RELEASE TAB PO SCH ×2 (03:03→10:49)
[2017-11-01 05:12] LABS: AUTOMATED NEUTROPHIL # 2.4 TH/MM3 (1.8-7.7); BASOPHIL % 0.4 % (0.0-2.0); EOSINOPHIL # 0.1 TH/MM3 (0-0.4); EOSINOPHIL % 3.4 % (0.0-4.0); HEMATOCRIT 35.8 % (35.0-46.0); HEMOGLOBIN 11.9 GM/DL (11.6-15.3); LYMPH % 32.5 % (9.0-44.0); LYMPHOCYTE # 1.4 TH/MM3 (1.0-4.8); MEAN CELL VOLUME 85.5 FL (80.0-100.0); MEAN CORPUSCULAR HEMOGLOBIN 28.5 PG (27.0-34.0); MEAN CORPUSCULAR HGB CONC 33.3 % (32.0-36.0); MEAN PLATELET VOLUME 8.3 FL (7.0-11.0); MONO % 8.7 % (0.0-8.0); MONOCYTE # 0.4 TH/MM3 (0-0.9); PLATELET COUNT 113 TH/MM3 (150-450); RED BLOOD COUNT 4.18 MIL/MM3 (4.00-5.30); RED CELL DISTRIBUTION WIDTH 15.7 % (11.6-17.2); WHITE BLOOD COUNT 4.3 TH/MM3 (4.0-11.0)
[2017-11-01 05:30] LABS: ALBUMIN 2.9 GM/DL (3.4-5.0); AST (GOT) 19 U/L (15-37); BICARBONATE 30.2 MEQ/L (21.0-32.0); BLOOD UREA NITROGEN 8 MG/DL (7-18); CALCIUM 8.9 MG/DL (8.5-10.1); CHLORIDE 103 MEQ/L (98-107); CREATININE 0.86 MG/DL (0.50-1.00); GLOMERULAR FILTRATION RATE 65 ML/MIN (>89); GLUCOSE,RANDOM 114 MG/DL (74-106); MAGNESIUM 2.1 MG/DL (1.5-2.5); SODIUM (NA) 141 MEQ/L (136-145)
[2017-11-01 05:31] LABS: ALT (GPT) 17 U/L (10-53); PHOSPHORUS 3.9 MG/DL (2.5-4.9)
[2017-11-01 05:33] LABS: ALKALINE PHOSPHATASE 114 U/L (45-117); TOTAL BILIRUBIN ADULT 0.6 MG/DL (0.2-1.0); TOTAL PROTEIN 5.4 GM/DL (6.4-8.2)
[2017-11-01] MEDS: INSULIN ASPART SUPPLEMENTAL SCALE SQ SCH (08:00)
[2017-11-01] MEDS: PANTOPRAZOLE SOD 40 MG DELAYED RELEASE TAB PO SCH (08:41)
[2017-11-01] MEDS: SUCRALFATE 1 GM/10 ML CUP PO SCH (08:41)
[2017-11-01] MEDS: metFORMIN HCL 500 MG TAB PO SCH (08:42)
[2017-11-01] MEDS: RANOLAZINE 500 MG EXTENDED RELEASE TAB PO SCH (08:42)
[2017-11-01] MEDS: FUROSEMIDE 40 MG TAB PO SCH (08:42)
[2017-11-01] MEDS: POTASSIUM CHLORIDE 20 MEQ CONTROLLED RELEASE TAB PO SCH (08:42)
[2017-11-01] MEDS: APIXABAN 5 MG TABLET PO SCH (08:42)
[2017-11-01] MEDS: ISOSORBIDE MONONITRATE 30 MG CR TAB (IMDUR) PO SCH (08:43)
[2017-11-01] MEDS: SODIUM CHLORIDE 0.9% FLUSH 10 ML FLUSH IV FLUSH SCH (08:47)
[2017-11-01] MEDS: METOPROLOL SUCCINATE 50 MG EXTENDED RELEASE TAB PO SCH (08:48)
[2017-11-01] MEDS ORDERED: FURO40TA PO (08:49)
[2017-11-01] MEDS ORDERED: ATOR10TA15 PO (08:49)
[2017-11-01] MEDS ORDERED: METO1TAB42 PO (08:49)
[2017-11-01] MEDS ORDERED: APIX5TAB PO (08:49)
[2017-11-01] MEDS ORDERED: POTA-163 PO (08:49)
[2017-11-01] MEDS ORDERED: AMLO5TAB2 PO (08:49)
[2017-11-01] MEDS ORDERED: SUCR1S PO (08:49)
[2017-11-01] MEDS ORDERED: RANO500 PO (08:49)
[2017-11-01] MEDS ORDERED: ASPI-516 CHEW (08:49)
[2017-11-01] MEDS ORDERED: METF500T PO (08:49)
[2017-11-01] MEDS ORDERED: POLY17S PO (08:49)
[2017-11-01] MEDS ORDERED: TIOT12.9 INH (08:49)
[2017-11-01] MEDS ORDERED: PANT40TA3 PO (08:49)
[2017-11-01] MEDS ORDERED: FAMO20TA2 PO (08:49)
[2017-11-01] MEDS ORDERED: guaiFENesin ER PO (08:49)
[2017-11-01] MEDS ORDERED: Simethicone Chew CHEW (08:49)
[2017-11-01] MEDS ORDERED: PROM25TA10 PO (08:49)
[2017-11-01] MEDS ORDERED: NITR0.4S SL (08:49)
[2017-11-01] MEDS ORDERED: POLYETHYLENE GLYCOL 17 GM PKG PO SCH (09:00)
[2017-11-01] MEDS ORDERED: BISACODYL 10 MG SUPP RECTAL SCH (09:00)
--- NOTE | 2017-11-01 09:24 | HHI.PR ---
Subjective Remarks 10-30 Patient underwent cardiac catheterization and cardiac ablation for atrial fibrillation today with Dr. SUSAN LUCIO RN AND PT HAS SOME NAUSEA NOW HOPEFULLY DISCHARGE TO HOME TOMORROW AM LABS 10-31 PATIENT COMPLAINS OF ABDOMINAL PAIN AND CHEST PAIN DW RN AND PT COMPLAINS OF NAUSEA AND BLOATING TROPONIN IS LOWER THAN PRIOR IN THE ADMISSION SO TRENDING DOWN HAD CHEST PAIN EARLIER- IS CHRONICALLY ON IMDUR NOW REFUSES TO GO HOME 11-01 HAD GOOD BM IS ON CHRONIC PAIN MEDS DW RN AND PT DC TO HOME TODAY FOLLOW UP WITH CARDIO AND DR DAVIS NO CHEST PAIN HAD CONSTIPATION GOOD BM DC TO HOME Objective Vitals Vital Signs Date Time Temp Pulse Resp B/P (MAP) Pulse Ox O2 Delivery O2 Flow Rate FiO2 11/01/17 08:00 67 11/01/17 07:06 58 11/01/17 07:00 98.1 59 20 96/52 (67) 93 11/01/17 06:06 60 11/01/17 05:23 78 11/01/17 04:21 57 11/01/17 03:40 98.0 59 18 100/58 (72) 95 11/01/17 03:40 57 11/01/17 02:42 64 11/01/17 01:30 55 11/01/17 00:16 53 10/31/17 23:40 98.3 58 21 111/56 (74) 98 10/31/17 23:40 57 10/31/17 22:07 60 10/31/17 21:52 59 10/31/17 20:00 60 10/31/17 19:40 60 10/31/17 19:30 98.4 64 18 104/60 (75) 96 10/31/17 18:00 68 10/31/17 17:00 62 10/31/17 17:00 20 10/31/17 16:00 64 10/31/17 15:14 98.4 64 18 102/56 (71) 92 10/31/17 15:00 61 10/31/17 14:00 68 10/31/17 13:00 64 10/31/17 12:00 64 10/31/17 11:44 22 10/31/17 11:12 98.2 62 18 106/55 (72) 92 10/31/17 11:00 62 10/31/17 10:00 68 I/O 10/31/17 10/31/17 10/31/17 11/01/17 11/01/17 11/01/17 07:00 15:00 23:00 07:00 15:00 23:00 Intake Total 720 ml 1000 ml 330 ml Output Total 750 ml Balance 720 ml 250 ml 330 ml Intake Oral 720 ml 1000 ml 330 ml Output Urine Total 750 ml # Voids 2 3 # Bowel Movements 0 2 Result Diagram: 11/01/17 0410 11/01/17 0410 Other Results Laboratory Tests Test 10/31/17 03:50 10/31/17 09:25 11/01/17 04:10 White Blood Count 7.4 TH/MM3 4.3 TH/MM3 Red Blood Count 4.59 MIL/MM3 4.18 MIL/MM3 Hemoglobin 13.1 GM/DL 11.9 GM/DL Hematocrit 39.1 % 35.8 % Mean Corpuscular Volume 85.1 FL 85.5 FL Mean Corpuscular Hemoglobin 28.5 PG 28.5 PG Mean Corpuscular Hemoglobin Concent 33.5 % 33.3 % Red Cell Distribution Width 15.7 % 15.7 % Platelet Count 110 TH/MM3 113 TH/MM3 Mean Platelet Volume 8.4 FL 8.3 FL Neutrophils (%) (Auto) 77.1 % 55.0 % Lymphocytes (%) (Auto) 14.7 % 32.5 % Monocytes (%) (Auto) 5.5 % 8.7 % Eosinophils (%) (Auto) 2.4 % 3.4 % Basophils (%) (Auto) 0.3 % 0.4 % Neutrophils # (Auto) 5.7 TH/MM3 2.4 TH/MM3 Lymphocytes # (Auto) 1.1 TH/MM3 1.4 TH/MM3 Monocytes # (Auto) 0.4 TH/MM3 0.4 TH/MM3 Eosinophils # (Auto) 0.2 TH/MM3 0.1 TH/MM3 Basophils # (Auto) 0.0 TH/MM3 0.0 TH/MM3 CBC Comment DIFF FINAL DIFF FINAL Differential Comment Prothrombin Time 10.9 SEC Prothromb Time International Ratio 1.1 RATIO Activated Partial Thromboplast Time 28.2 SEC Blood Urea Nitrogen 9 MG/DL 8 MG/DL Creatinine 0.83 MG/DL 0.86 MG/DL Random Glucose 99 MG/DL 114 MG/DL Total Protein 5.6 GM/DL 5.4 GM/DL Albumin 2.9 GM/DL 2.9 GM/DL Calcium Level 8.2 MG/DL 8.9 MG/DL Phosphorus Level 3.5 MG/DL 3.9 MG/DL Magnesium Level 1.7 MG/DL 2.1 MG/DL Alkaline Phosphatase 93 U/L 114 U/L Aspartate Amino Transf (AST/SGOT) 28 U/L 19 U/L Alanine Aminotransferase (ALT/SGPT) 14 U/L 17 U/L Total Bilirubin 0.8 MG/DL 0.6 MG/DL Sodium Level 141 MEQ/L 141 MEQ/L Potassium Level 4.0 MEQ/L 4.0 MEQ/L Chloride Level 105 MEQ/L 103 MEQ/L Carbon Dioxide Level 27.9 MEQ/L 30.2 MEQ/L Anion Gap 8 MEQ/L 8 MEQ/L Estimat Glomerular Filtration Rate 68 ML/MIN 65 ML/MIN Hemoglobin A1c 7.5 % Free Thyroxine 1.09 NG/DL Thyroid Stimulating Hormone 3rd Gen 5.540 uIU/ML Troponin I 2.60 NG/ML Imaging Last Impressions Abdomen X-Ray 10/31/17 1023 Signed Impressions: CONCLUSION: No findings to indicate a bowel obstruction identified. Moderate amount of stool within the colon suggesting constipation. Chest X-Ray 10/22/17 0631 Signed Impressions: CONCLUSION: Cardiomegaly with trace pleural effusions and minimal basilar atelectasis. Objective Remarks GENERAL: Awake alert and oriented 3 and talkative and cooperative SKIN: Warm and dry. HEAD: Atraumatic. Normocephalic. EYES: Pupils equal and round. No scleral icterus. No injection or drainage. Extraocular muscles intact ENT: No nasal bleeding or discharge. Mucous membranes pink and moist. Tongue is midline NECK: Trachea midline. No JVD. Supple CARDIOVASCULAR: Regular rate and rhythm. S1-S2 no S3 or S4 RESPIRATORY: No accessory muscle use. Clear to auscultation. Breath sounds equal bilaterally. GASTROINTESTINAL: Abdomen soft, non-tender, nondistended. Hepatic and splenic margins not palpable. Obese MUSCULOSKELETAL: Extremities without clubbing, cyanosis, or edema. No obvious deformities. NEUROLOGICAL: Awake and alert. No obvious cranial nerve deficits. Motor grossly within normal limits. 4 out of 5 muscle strength in the arms and legs. Normal speech. PSYCHIATRIC: Appropriate mood and affect; insight and judgment normal. Procedures CARDIAC ABLATION FOR AFIB 6-19 Medications and IVs Current Medications Nitroglycerin (Nitroglycerin 2% Oint) 1 inch ONCE ONCE TOP ; Start 10/22/17 at 06:45; Stop 10/22/17 at 06:46; Status DC Sodium Chloride (NS Flush) 2 ml UNSCH PRN IVF FLUSH AFTER USING IV ACCESS; Start 10/22/17 at 06:45; Stop 10/22/17 at 08:41; Status DC Sodium Chloride (NS Flush) 2 ml UNSCH PRN IV FLUSH FLUSH AFTER USING IV ACCESS ; Start 10/22/17 at 08:45 Sodium Chloride (NS Flush) 2 ml BID IV FLUSH Last administered on 11/01/17at 08: 47; Start 10/22/17 at 09:00 Ondansetron HCl (Zofran Inj) 4 mg Q6H PRN IVP NAUSEA OR VOMITING; Start at 08:45; Stop 10/23/17 at 08:27; Status DC Enoxaparin Sodium (Lovenox Inj) 40 mg Q24H SQ Last administered on 10/22/17at 10 :25; Start 10/22/17 at 10:00; Stop 10/22/17 at 13:24; Status DC Naloxone HCl (Narcan Inj) 0.4 mg UNSCH PRN IV PUSH SEE LABEL COMMENTS; Start at 08:45 Nitroglycerin (Nitrostat Sl) 0.4 mg Q5M PRN SL CHEST PAIN Last administered on 10/26/17at 08:55; Start 10/22/17 at 08:45 Aspirin (Aspirin Chew) 81 mg ONCE ONCE CHEW Last administered on 10/22/17at 09: 22; Start 10/22/17 at 08:45; Stop 10/22/17 at 08:46; Status DC Amlodipine Besylate (Norvasc) 5 mg DAILY PO ; Start 10/22/17 at 09:00; Stop 03/31 at 13:24; Status DC Aspirin (Aspirin Chew) 81 mg DAILY CHEW Last administered on 10/30/17at 08:32; Start 10/22/17 at 09:00; Stop 10/30/17 at 12:08; Status DC Atorvastatin Calcium (Lipitor) 10 mg HS PO Last administered on 10/31/17at 20:29 ; Start 10/22/17 at 21:00 Famotidine (Pepcid) 20 mg HS PO Last administered on 10/31/17at 20:28; Start 03/31 at 21:00 Furosemide (Lasix) 40 mg BID@09,18 PO Last administered on 10/25/17at 09:56; Start 10/22/17 at 09:00; Stop 10/25/17 at 13:23; Status DC Isosorbide Mononitrate (Imdur) 60 mg BID@0700,2100 PO Last administered on 10/25at 06:11; Start 10/22/17 at 21:00; Stop 10/25/17 at 13:23; Status DC Metformin HCl (Glucophage) 500 mg BIDPC PO Last administered on 11/01/17at 08:42 ; Start 10/22/17 at 09:00 Metoprolol Succinate (Toprol Xl) 25 mg DAILY PO ; Start 10/22/17 at 09:00; Stop 10/22/17 at 13:24; Status DC Morphine Sulfate (Oramorph Sr) 60 mg Q8H PO Last administered on 11/01/17at 03: 03; Start 10/22/17 at 10:00 Oxycodone/ Acetaminophen (Percocet 10-325 Mg) 1 tab Q6H PRN PO PAIN 3-10 Last administered on 10/30/17at 08:33; Start 10/22/17 at 08:45; Stop 10/30/17 at 13:18 ; Status DC Pantoprazole Sodium (Protonix) 40 mg DAILYAC PO Last administered on 11/01/17at 08:41; Start 10/23/17 at 08:00 Potassium Chloride (KCl) 20 meq DAILY PO Last administered on 11/01/17at 08:42; Start 10/22/17 at 09:00 Ranolazine (Ranexa) 1,000 mg Q12HR PO Last administered on 11/01/17at 08:42; Start 10/22/17 at 11:00 Sucralfate (Carafate Liq) 1 gm ACHS PO Last administered on 11/01/17at 08:41; Start 10/22/17 at 12:00 Tiotropium Coalgate (Spiriva Inh) 36 mcg DAILY INH ; Start 10/22/17 at 11:00; Stop 10/22/17 at 11:49; Status DC Patient Own Medication PT OWN MED: SPIR... DAILY INH ; Start 10/23/17 at 09:00; Status Future Hold Amlodipine Besylate (Norvasc) 2.5 mg DAILY PO Last administered on 10/23/17at 09 :29; Start 10/23/17 at 09:00; Stop 10/25/17 at 13:23; Status DC Metoprolol Succinate (Toprol Xl) 50 mg DAILY PO Last administered on 10/26/17at 08:57; Start 10/23/17 at 09:00; Stop 10/27/17 at 08:24; Status DC Apixaban (Eliquis) 5 mg BID PO Last administered on 10/29/17at 08:44; Start 03/31 at 21:00; Stop 10/29/17 at 12:15; Status DC Miscellaneous (Pill Splitter) 1 ea UNSCH PRN OTHER SEE LABEL COMMENTS; Start at 14:00 Ondansetron HCl (Zofran Odt) 4 mg Q6H PRN PO nausea Last administered on at 06:49; Start 10/23/17 at 08:30; Stop 10/30/17 at 13:19; Status DC Metoprolol Tartrate (Lopressor Inj) 5 mg ONCE ONCE IV PUSH Last administered on 10/23/17at 14:19; Start 10/23/17 at 14:15; Stop 10/23/17 at 14:16; Status DC Amiodarone HCl 150 mg/Dextrose 103 ml @ 600 mls/hr Q11M ONCE IV Last administered on 10/23/17at 15:05; Start 10/23/17 at 15:00; Stop 10/23/17 at 15:10 ; Status DC Amiodarone HCl 450 mg/Sodium Chloride 250 ml @ 33.33 mls/ hr Q7H31M PRN IV Per Protocol Last administered on 10/24/17at 03:08; Start 10/23/17 at 15:00; Status Future Hold Morphine Sulfate (Morphine Inj) 2 mg ONCE ONCE IV PUSH Last administered on 04/30at 14:45; Start 10/23/17 at 14:45; Stop 10/23/17 at 14:54; Status DC Morphine Sulfate (Morphine Inj) 2 mg Q4H PRN IV PUSH chest pain/breakthrough pain Last administered on 10/27/17at 09:15; Start 10/23/17 at 16:00 Metoprolol Tartrate (Lopressor Inj) 5 mg NOW ONCE IV PUSH Last administered on 10/23/17at 16:00; Start 10/23/17 at 16:15; Stop 10/23/17 at 16:16; Status DC Esmolol HCl/ Sodium Chloride 250 ml @ 7.908 mls/ hr TITRATE PRN IV Blood Pressure Management Last administered on 10/23/17at 17:50; Start 10/23/17 at 16: 15; Stop 10/23/17 at 18:12; Status DC Esmolol HCl (Brevibloc Bolus Inj) 13 mg BOLUS PRN IV PUSH Rebolus; Start at 16:15; Status Cancel Metoprolol Tartrate (Lopressor Inj) 5 mg NOW ONCE IV PUSH Last administered on 10/23/17at 16:19; Start 10/23/17 at 16:15; Stop 10/23/17 at 16:16; Status DC Esmolol HCl/ Sodium Chloride 250 ml @ 21.3 mls/hr TITRATE PRN IV Blood Pressure Management Last administered on 10/23/17at 18:39; Start 10/23/17 at 18: 15; Stop 10/30/17 at 12:08; Status DC Esmolol HCl (Brevibloc Bolus Inj) 35.5 mg BOLUS PRN IV PUSH Rebolus; Start 04/30 at 18:30; Status Cancel Esmolol HCl (Brevibloc Bolus Inj) 35.5 mg BOLUS PRN IV PUSH Rebolus; Start 04/30 at 18:30; Status Cancel Esmolol HCl (Brevibloc Bolus Inj) 35.5 mg BOLUS PRN IV PUSH Rebolus; Start 04/30 at 18:30; Status Cancel Esmolol HCl (Brevibloc Bolus Inj) 35.5 mg BOLUS PRN IV REBOLUS Last administered on 10/23/17at 18:40; Start 10/23/17 at 18:30 Dextrose (D50w (Vial) Inj) 50 ml UNSCH PRN IV PUSH HYPOGLYCEMIA-SEE COMMENTS; Start 10/24/17 at 08:15 Glucagon (Glucagon Inj) 1 mg UNSCH PRN OTHER HYPOGLYCEMIA-SEE COMMENTS; Start 10/24/17 at 08:15 Insulin Aspart (NovoLOG SUPPLEMENTAL SCALE) 1 ACHS SLIDING SCALE SQ Last administered on 11/01/17at 08:00; Start 10/24/17 at 12:00 Sodium Chloride 500 ml @ 500 mls/hr Q1H IV Last administered on 10/24/17at 09: 19; Start 10/24/17 at 09:00; Stop 10/24/17 at 09:59; Status DC Amiodarone HCl (Cordarone) 200 mg Q12HR PO Last administered on 10/24/17at 21:04 ; Start 10/24/17 at 09:00; Stop 10/25/17 at 13:23; Status DC Sodium Chloride 500 ml @ 500 mls/hr BOLUS ONCE IV Last administered on at 11:37; Start 10/24/17 at 11:45; Stop 10/24/17 at 12:44; Status DC Furosemide (Lasix Inj) 20 mg ONCE PRN IV PUSH Dyspnea; Start 10/24/17 at 11:15 ; Stop 10/25/17 at 11:14; Status DC Sodium Chloride 250 ml @ 250 mls/hr BOLUS ONCE IV Last administered on at 09:12; Start 10/25/17 at 09:00; Stop 10/25/17 at 09:59; Status DC Amiodarone HCl (Cordarone) 200 mg DAILY PO Last administered on 10/26/17at 15:10 ; Start 10/26/17 at 09:00; Stop 10/27/17 at 08:24; Status DC Furosemide (Lasix) 40 mg DAILY PO Last administered on 11/01/17at 08:42; Start 10/26/17 at 09:00 Isosorbide Mononitrate (Imdur) 60 mg DAILY PO ; Start 10/26/17 at 09:00; Stop at 07:18; Status DC Potassium Chloride (KCl) 30 meq ONCE ONCE PO Last administered on 10/25/17at 17 :43; Start 10/25/17 at 17:15; Stop 10/25/17 at 17:30; Status DC Isosorbide Mononitrate (Imdur) 30 mg DAILY PO Last administered on 11/01/17at 08 :43; Start 10/27/17 at 09:00 Amiodarone HCl (Cordarone) 400 mg DAILY PO Last administered on 10/28/17at 09:51 ; Start 10/27/17 at 09:00; Stop 10/29/17 at 07:16; Status DC Metoprolol Succinate (Toprol Xl) 25 mg DAILY PO Last administered on 10/28/17at 09:51; Start 10/27/17 at 09:00 Amiodarone HCl (Cordarone) 200 mg DAILY PO Last administered on 10/29/17at 08:44 ; Start 10/29/17 at 09:00; Stop 10/30/17 at 12:08; Status DC Sodium Chloride 500 ml @ 30 mls/hr CONTINUOUS IV ; Start 10/29/17 at 12:15 Sodium Chloride 500 ml @ 30 mls/hr CONTINUOUS IV ; Start 10/29/17 at 12:15 Heparin Sodium/ Sodium Chloride 500 ml @ As Directed STK-MED ONCE .ROUTE ; Start 10/30/17 at 08:58; Stop 10/30/17 at 08:59; Status DC Levofloxacin/ Dextrose 100 ml @ As Directed STK-MED ONCE IV ; Start 10/30/17 at 08:58; Stop 10/30/17 at 08:59; Status DC Heparin Sodium (Porcine) (Heparin Inj) 10,000 units STK-MED ONCE .ROUTE ; Start 10/30/17 at 08:58; Stop 10/30/17 at 08:59; Status DC Heparin Sodium/ Sodium Chloride 500 ml @ As Directed STK-MED ONCE .ROUTE ; Start 10/30/17 at 09:20; Stop 10/30/17 at 09:21; Status DC Heparin Sodium/ Dextrose 250 ml @ As Directed STK-MED ONCE .ROUTE ; Start 10/30 at 09:21; Stop 10/30/17 at 09:22; Status DC Fentanyl Citrate (fentaNYL INJ) 100 mcg STK-MED ONCE .ROUTE ; Start 10/30/17 at 09:21; Stop 10/30/17 at 09:22; Status DC Midazolam HCl (Versed Inj) 2 mg STK-MED ONCE .ROUTE ; Start 10/30/17 at 09:21; Stop 10/30/17 at 09:22; Status DC Heparin Sodium (Porcine) (Heparin Inj) 20,000 units STK-MED ONCE .ROUTE ; Start 10/30/17 at 09:22; Stop 10/30/17 at 09:23; Status DC Isoproterenol HCl 50 ml @ As Directed STK-MED ONCE IV ; Start 10/30/17 at 09:22 ; Stop 10/30/17 at 09:23; Status DC Levofloxacin/ Dextrose 100 ml @ As Directed STK-MED ONCE IV ; Start 10/30/17 at 09:22; Stop 10/30/17 at 09:23; Status DC Sodium Chloride 250 ml @ As Directed STK-MED ONCE .ROUTE ; Start 10/30/17 at 10 :08; Stop 10/30/17 at 10:09; Status DC Isoproterenol HCl 50 ml @ As Directed STK-MED ONCE IV ; Start 10/30/17 at 11:22 ; Stop 10/30/17 at 11:23; Status DC Protamine Sulfate (Protamine Sulfate Inj) 50 mg STK-MED ONCE .ROUTE ; Start at 11:30; Stop 10/30/17 at 11:31; Status DC Oxycodone/ Acetaminophen (Percocet 5-325 Mg) 1 tab Q4H PRN PO PAIN SCALE 1 TO 4 Last administered on 10/30/17at 15:38; Start 10/30/17 at 12:15 Oxycodone/ Acetaminophen (Percocet 5-325 Mg) 2 tab Q4H PRN PO PAIN SCALE 5 TO 10 Last administered on 10/31/17at 16:00; Start 10/30/17 at 12:15 Lorazepam (Ativan Inj) 0.5 mg UNSCH PRN IV PUSH ANXIETY; Start 10/30/17 at 12: 15; Stop 10/31/17 at 12:14; Status DC Atropine Sulfate (Atropine Inj) 0.5 mg UNSCH PRN IV PUSH VAGAL REPONSE; Start 10/30/17 at 12:15 Sodium Chloride 250 ml @ 500 mls/hr ONCE PRN IV VAGAL REPONSE; Start 10/30/17 at 12:15; Stop 10/31/17 at 12:14; Status DC Ondansetron HCl (Zofran Odt) 4 mg Q4H PRN PO NAUSEA Last administered on at 18:28; Start 10/30/17 at 12:15 Lidocaine HCl (Xylocaine 1% Inj (50 ml)) 10 ml UNSCH PRN INFIL SHEATH REMOVAL; Start 10/30/17 at 12:15; Stop 10/31/17 at 12:14; Status DC Bacitracin (Bacitracin Oint Packet) 0.9 gm ONCE ONCE TOP ; Start 10/30/17 at 12 :15; Stop 10/30/17 at 12:47; Status DC Apixaban (Eliquis) 5 mg BID PO Last administered on 11/01/17at 08:42; Start at 21:00 Morphine Sulfate (*morphine INJ PERIprocedure ONLY) 8 mg STK-MED ONCE .ROUTE Last administered on 10/30/17at 12:16; Start 10/30/17 at 12:16; Stop 10/30/17 at 12:17; Status DC Morphine Sulfate (*morphine INJ PERIprocedure ONLY) 8 mg STK-MED ONCE .ROUTE Last administered on 10/30/17at 12:33; Start 10/30/17 at 12:33; Stop 10/30/17 at 12:34; Status DC Miscellaneous Information ([facility] Information) ALL NURSING DEPARTME... UNSCH PRN .XX SEE LABEL COMMENTS; Start 10/30/17 at 12:10; Stop 10/31/17 at 12: 09; Status DC Simethicone (Mylicon Chew) 80 mg PCHS PRN CHEW NAUSEA/GAS; Start 10/31/17 at 10 :45 Lidocaine HCl (Xylocaine-Mpf 1% Inj) 5 ml STK-MED ONCE OTHER ; Start 10/30/17 at 12:00; Stop 10/31/17 at 13:35; Status DC Rocuronium Coalgate (Zemuron Inj) 50 mg STK-MED ONCE IV PUSH ; Start 10/30/17 at 12:00; Stop 10/31/17 at 13:35; Status DC Neostigmine Methylsulfate (Prostigmine Inj) 5 mg STK-MED ONCE IV PUSH ; Start at 12:00; Stop 10/31/17 at 13:35; Status DC Glycopyrrolate (Robinul Inj) 1 mg STK-MED ONCE IV PUSH ; Start 10/30/17 at 12:00 ; Stop 10/31/17 at 13:35; Status DC Phenylephrine HCl (Neosynephrine/ NS 1000 Mcg/10ml Syr) 1,000 mcg STK-MED ONCE IV ; Start 10/30/17 at 12:00; Stop 10/31/17 at 13:35; Status DC Phenylephrine HCl (Neosynephrine Inj) 20 mg STK-MED ONCE IV ; Start 10/30/17 at 12:00; Stop 10/31/17 at 13:35; Status DC Ondansetron HCl (Zofran Inj) 4 mg STK-MED ONCE IV ; Start 10/30/17 at 12:00; Stop 10/31/17 at 13:36; Status DC Propofol (Diprivan 200 Mg/20 ml Inj) 200 mg STK-MED ONCE IV ; Start 10/30/17 at 12:00; Stop 10/31/17 at 13:36; Status DC Polyethylene Glycol (Miralax) 17 gm ONCE ONCE PO Last administered on at 15:59; Start 10/31/17 at 15:30; Stop 10/31/17 at 15:34; Status DC Polyethylene Glycol (Miralax) 17 gm DAILY PO ; Start 11/01/17 at 09:00 Bisacodyl (Dulcolax Supp) 10 mg ONCE ONCE RECTAL Last administered on at 16:00; Start 10/31/17 at 15:30; Stop 10/31/17 at 15:34; Status DC Bisacodyl (Dulcolax Supp) 10 mg DAILY RECTAL ; Start 11/01/17 at 09:00 A/P Problem List: (1) Paroxysmal atrial fibrillation with rapid ventricular response ICD Code: I48.0 - Paroxysmal atrial fibrillation Status: Acute (2) Chest pain ICD Code: R07.9 - Chest pain, unspecified Status: Acute (3) CAD (coronary artery disease) ICD Code: I25.10 - CAD (coronary artery disease) Status: Chronic Assessment and Plan 72 years old female NSTEMI with known CAD Patient had recent KS on her last hospitalization, discharged only 4 days ago Medical management recommended at that time due to severe vessel disease, history of CABG, history of multiple stents Nitroglycerin as needed, oxygen as needed on BB- Toprol 50 mg XL- dose down to 25 mg XL daily /Nitrates- Imdur 30 mg with Appreciate cardiology following- CONTINUE IMDUR Paroxysmal Atrial fibrillation with RVR- now in SR- HR in the 50s Admitted with this condition, temporarily resolved but returned 10/24 requiring a transferred to CVICU amiodarone 200 mg daily per cardio recommendations Appreciate cardiology consult, seen by Dr. Davis- plan for EP study on eliquis Had EP study today with cardiac ablation Hypotension- improved- up and ambulating - continue to monitor and adjust dosages - cardiology ff h/o COPD - good sats at room air Continue home medications, stable at this time Type 2 diabetes Sliding scale insulin coverage with Accu-Cheks Diabetic diet resume meds at home ABDOMINAL PAIN- CHECK KUB HAS CONSTIPATION- NEEDS TO BE ON MEDS CHRONICALLY DUE TO CHRONIC PAIN MEDS DVT prophylaxis Lovenox DC planning once cleared with cardiology--CLEARED BY CARDIOLOGY CM consul for home health care arrangement PCP- Dr. Davison Hopefully discharge to home tomorrow we will get a.m. labs CLEARED BY CARDIOLOGY HAVING ABDOMINAL PAIN-IS ON MULTIPLE MEDS FOR THIS NAUSEA CONTINUE ZOFRAN PRN DC TO HOME TODAY Discharge Planning DC TO HOME TODAY Problem Qualifiers (1) Chest pain: Qualified Codes: R07.2 - Precordial pain (2) CAD (coronary artery disease): Qualified Codes: I25.10 - Atherosclerotic heart disease of [place] coronary artery without angina pectoris Bart Radford DO Nov 01, 2017 09:23
[2017-11-01] MEDS ORDERED: ZOFR8TAB PO (09:28)
[2017-11-01] MEDS ORDERED: SENN187 PO (09:28)
[2017-11-01] MEDS ORDERED: ISOS60TA PO (09:28)
--- NOTE | 2017-11-01 09:35 | HHI.DS ---
Discharge Summary Admission Date Oct 23, 2017 at 14:46 Discharge Date: Nov 01, 2017 Admitting Diagnosis CHEST PAIN (1) Paroxysmal atrial fibrillation with rapid ventricular response ICD Code: I48.0 - Paroxysmal atrial fibrillation Diagnosis: Principal Status: Acute (2) Chest pain ICD Code: R07.9 - Chest pain, unspecified Diagnosis: Principal Status: Acute (3) CAD (coronary artery disease) ICD Code: I25.10 - CAD (coronary artery disease) Diagnosis: Principal Status: Chronic (4) S/P ablation of atrial fibrillation ICD Code: Z98.890 - Other specified postprocedural states; Z86.79 - Personal history of other diseases of the circulatory system Diagnosis: Principal (5) Atrial fibrillation ICD Code: I48.91 - Unspecified atrial fibrillation Diagnosis: Principal (6) COPD (chronic obstructive pulmonary disease) ICD Code: J44.9 - Chronic obstructive pulmonary disease Diagnosis: Secondary Status: Acute (7) Chronic pain ICD Code: G89.29 - Chronic pain Diagnosis: Secondary Status: Acute (8) DM (diabetes mellitus) ICD Code: E11.9 - Type 2 diabetes mellitus without complications Diagnosis: Secondary Status: Chronic (9) HTN (hypertension) ICD Code: I10 - Essential (primary) hypertension Diagnosis: Secondary Status: Acute (10) NSTEMI (non-ST elevated myocardial infarction) ICD Code: I21.4 - Non-ST elevation (NSTEMI) myocardial infarction (11) Elevated troponin ICD Code: R74.8 - Abnormal levels of other serum enzymes Diagnosis: Principal Status: Acute (12) Hyperlipemia ICD Code: E78.5 - Hyperlipidemia, unspecified Diagnosis: Secondary Status: Acute (13) Tobacco abuse ICD Code: Z72.0 - Tobacco abuse Diagnosis: Secondary Status: Acute (14) Anxiety ICD Code: F41.9 - Anxiety Diagnosis: Secondary Status: Acute Procedures CARDIAC ABLATION FOR AFIB 6-19 Brief History - From Admission 72-year-old female with a past medical history significant for severe coronary artery disease, myocardial infarction, COPD, type 2 diabetes, presents to the ER after experiencing chest pain starting at 5 AM this morning. On admission she was found to have atrial fibrillation with RVR. Her chest pain responded to simple nitroglycerin and the RVR was converted to sinus rhythm. She states that this all began after she [facility] mouth [facility] 2 nights ago. She has not slept in 2 days and despite moving rooms lives in fear due to her phobia. She denies any dyspnea or other medical issues active at this time. She was discharged from [facility] 4 days ago following myocardial infarction 2, due to her severe vessel disease, history of CABG and multiple stenting she is not a candidate for intervention and was determined to be appropriate for medical management as her best option. CBC/BMP: 11/01/17 0410 11/01/17 0410 Significant Findings Laboratory Tests Test 10/31/17 03:50 10/31/17 09:25 11/01/17 04:10 Platelet Count 110 TH/MM3 (150-450) 113 TH/MM3 (150-450) Neutrophils (%) (Auto) 77.1 % (16.0-70.0) Total Protein 5.6 GM/DL (6.4-8.2) 5.4 GM/DL (6.4-8.2) Albumin 2.9 GM/DL (3.4-5.0) 2.9 GM/DL (3.4-5.0) Calcium Level 8.2 MG/DL (8.5-10.1) Estimat Glomerular Filtration Rate 68 ML/MIN (>89) 65 ML/MIN (>89) Hemoglobin A1c 7.5 % (4.3-6.0) Thyroid Stimulating Hormone 3rd Gen 5.540 uIU/ML (0.358-3.740) Troponin I 2.60 NG/ML (0.02-0.05) Monocytes (%) (Auto) 8.7 % (0.0-8.0) Random Glucose 114 MG/DL (74-106) Imaging Last Impressions Abdomen X-Ray 10/31/17 1023 Signed Impressions: CONCLUSION: No findings to indicate a bowel obstruction identified. Moderate amount of stool within the colon suggesting constipation. Chest X-Ray 10/22/17 0631 Signed Impressions: CONCLUSION: Cardiomegaly with trace pleural effusions and minimal basilar atelectasis. PE at Discharge GENERAL: Awake alert and oriented 3 and talkative and cooperative SKIN: Warm and dry. HEAD: Atraumatic. Normocephalic. EYES: Pupils equal and round. No scleral icterus. No injection or drainage. Extraocular muscles intact ENT: No nasal bleeding or discharge. Mucous membranes pink and moist. Tongue is midline NECK: Trachea midline. No JVD. Supple CARDIOVASCULAR: Regular rate and rhythm. S1-S2 no S3 or S4 RESPIRATORY: No accessory muscle use. Clear to auscultation. Breath sounds equal bilaterally. GASTROINTESTINAL: Abdomen soft, non-tender, nondistended. Hepatic and splenic margins not palpable. Obese MUSCULOSKELETAL: Extremities without clubbing, cyanosis, or edema. No obvious deformities. NEUROLOGICAL: Awake and alert. No obvious cranial nerve deficits. Motor grossly within normal limits. 4 out of 5 muscle strength in the arms and legs. Normal speech. PSYCHIATRIC: Appropriate mood and affect; insight and judgment normal. Hospital Course 72-year-old female with a past medical history significant for severe coronary artery disease, myocardial infarction, COPD, type 2 diabetes, presents to the ER after experiencing chest pain starting at 5 AM this morning. On admission she was found to have atrial fibrillation with RVR. Her chest pain responded to simple nitroglycerin and the RVR was converted to sinus rhythm. She states that this all began after she saw mouth at her prison 2 nights ago. She has not slept in 2 days and despite moving rooms lives in fear due to her phobia. She denies any dyspnea or other medical issues active at this time. She was discharged from [facility] 4 days ago following myocardial infarction 2, due to her severe vessel disease, history of CABG and multiple stenting she is not a candidate for intervention and was determined to be appropriate for medical management as her best option. 6-19 Patient underwent cardiac catheterization and cardiac ablation for atrial fibrillation today with Dr. SUSAN LUCIO RN AND PT HAS SOME NAUSEA NOW HOPEFULLY DISCHARGE TO HOME TOMORROW AM LABS 6-20 PATIENT COMPLAINS OF ABDOMINAL PAIN AND CHEST PAIN NAVEED RN AND PT COMPLAINS OF NAUSEA AND BLOATING TROPONIN IS LOWER THAN PRIOR IN THE ADMISSION SO TRENDING DOWN HAD CHEST PAIN EARLIER- IS CHRONICALLY ON IMDUR NOW REFUSES TO GO HOME 6-21 HAD GOOD BM IS ON CHRONIC PAIN MEDS NAVEED RN AND PT DC TO HOME TODAY FOLLOW UP WITH [facility]ARDIO AND DR DAVIS NO CHEST PAIN HAD CONSTIPATION GOOD BM DC TO HOME DC TO HOME HAS CHRONIC CONSTIPATION SUSPECTED DUE TO CHRONIC PAIN MEDICATIONS Pt Condition on Discharge: Fair Discharge Disposition: Disch w/ Home Health Serv Discharge Time: > 30 minutes Discharge Instructions DIET: Follow Instructions for: Heart Healthy Diet, Diabetic Diet Speech Therapy-Diet Recommends: Regular Activities you can perform: Weight Bearing as [facility] Follow up Referrals: Cardiology - 2 Weeks with Arnel Harper MD Cardiology - 2 Weeks with Torey Davis MD PCP Follow-up - 1 Week with THERESA New Medications: Ondansetron (Zofran) 8 Mg Tab 8 MG PO TID for Nausea/Vomiting, #90 TAB 0 Refills Sennosides (Senna-Lax) 8.6 Mg Tab 2 TAB PO BID PRN for CONSTIPATION, #120 TAB Apixaban (Eliquis) 5 Mg Tab 5 MG PO BID for Pafib for 30 Days, #60 TAB 6 Refills Apixaban (Eliquis) 5 Mg Tab 5 MG PO BID for Blood Clot Prevention, #60 TAB Furosemide (Furosemide) 40 Mg Tab 40 MG PO DAILY for CARD for 30 Days, #30 TAB Nitroglycerin SL (Nitrostat SL) 0.4 Mg Subl 0.4 MG SL Q5M PRN for CHEST PAIN, #1 BOTTLE Polyethylene Glycol 3350 Powder (Polyethylene Glycol 3350 Powder) 17 Gram Pow 17 GM PO DAILY for Constipation, #1 BOTTLE [Simethicone Chew] () 80 MG CHEW 80 MG CHEW PCHS PRN for NAUSEA/GAS, #120 CHEW Changed Medications: [guaiFENesin ER] () 600 MG TABCR 600 MG PO BID for Chest Congestion/Cough, #60 TAB (Changed from: [guaiFENesin ER ] (Mucinex Er) 600 MG TABCR 600 Mg PO BID Chest Congestion/Cough 7 Days #14 ) Continued Medications: Amlodipine (Amlodipine) 5 Mg Tab 5 MG PO DAILY for Blood Pressure Management, #30 TAB 0 Refills (This prescription has been renewed) Aspirin (Aspirin) 81 Mg Chew 81 MG CHEW DAILY for Blood Clot Prevention, #30 TAB 0 Refills (This prescription has been renewed) Atorvastatin (Atorvastatin) 10 Mg Tab 10 MG PO HS for Cholesterol Management, #30 TAB 0 Refills (This prescription has been renewed) Famotidine (Famotidine) 20 Mg Tab 20 MG PO HS for abdominal pain for 30 Days, #30 TAB (This prescription has been renewed) Furosemide (Furosemide) 40 Mg Tab 40 MG PO BID@09,18 for CHF for 30 Days, #60 TAB (This prescription has been renewed) Isosorbide Mononitrate ER (Isosorbide Mononitrate ER) 60 Mg Tab 60 MG PO BID@0700,2100 for angina for 30 Days, #60 TAB (This prescription has been renewed) Metformin (Metformin) 500 Mg Tab 500 MG PO BIDPC for Blood Sugar Management, #60 TAB 0 Refills (This prescription has been renewed) Metoprolol Succinate ER 24 HR (Metoprolol Succinate ER 24 HR) 25 Mg Tab 25 MG PO DAILY for Blood Pressure Management, #30 TAB 0 Refills (This prescription has been renewed) Morphine ER (Morphine ER) 60 Mg Tab 60 MG PO Q8H for Pain Management for 30 Days, #90 TAB 0 Refills Oxycodone-Acetaminophen (Percocet) 10-325 mg Tab 1 TAB PO Q6H PRN for PAIN for 30 Days, #120 TAB 0 Refills Oxygen (O2) (Oxygen (O2)) Device LITER HARJEET.CANULA CONTINUOUS for Prevent Hypoxemia, #2 Oxygen Concentrator Portable Gaseous 2 L/min via Nasal Canula Continuous For 99 months Pantoprazole (Pantoprazole) 40 Mg Tab 40 MG PO DAILYAC for abdominal pain for 30 Days, #30 TAB (This prescription has been renewed) Potassium Chloride ER (Potassium Chloride ER) 20 Meq Tab 20 MEQ PO DAILY for Electrolyte Replacement, #30 TAB 0 Refills (This prescription has been renewed) Promethazine (Phenergan) 25 Mg Tablet 25 MG PO Q6H PRN for NAUSEA OR VOMITING for 5 Days, #20 TAB 0 Refills (This prescription has been renewed) Ranolazine ER 12 HR (Ranexa ER 12 HR) 500 Mg Tab 1000 MG PO Q12HR for Angina for 30 Days, #60 TAB (This prescription has been renewed) Sucralfate Liq (Sucralfate Liq) 1 Gram/10 Ml [place] 1 GM PO ACHS for abdominal pain for 30 Days, #120 ML 0 Refills (This prescription has been renewed) Tiotropium Inh (Spiriva Respimat Inh) 2.5 Mcg/Act Aero 2 PUFF INH DAILY for COPD, #1 INHALER 0 Refills (This prescription has been renewed) 2.5 mcg = 1 inhalation Discontinued Medications: Guaifenesin (Guaifenesin ER) 600 Mg Tab.er.12h Bart Radford DO Nov 01, 2017 09:35
[2017-11-01] MEDS ORDERED: COMMODE 3-IN-11 MIS (11:51)
== END 2017-11-01 12:18 | disposition home health service (06) | DRG 273 ==
LOC: NEPC 06:16 → NEDA 08:34 → NEPFCDU 12:13 → OBSVTOIN 10-23 14:46 → HCIS 10-23 14:48 → HCVI 10-23 17:50 → HCPC 10-24 10:02
PROVIDERS: ADMIT Hospitalist; ATTEND Hospitalist
PROC: 4A023FZ Measurement of Cardiac Rhythm, Percutaneous Approach (ICD-10-PCS; 2017-10-30)
PROC: 4A0234Z Measurement of Cardiac Electrical Activity, Percutaneous Approach (ICD-10-PCS; 2017-10-30)
PROC: 02K83ZZ Map Conduction Mechanism, Percutaneous Approach (ICD-10-PCS; 2017-10-30)
PROC: 4A023N8 Measurement of Cardiac Sampling and Pressure, Bilateral, Percutaneous Approach (ICD-10-PCS; 2017-10-30)
PROC: B244ZZZ Ultrasonography of Right Heart (ICD-10-PCS; 2017-10-30)
PROC: 02583ZZ Destruction of Conduction Mechanism, Percutaneous Approach (ICD-10-PCS; principal; 2017-10-30 09:30)
DX: I48.0 Paroxysmal atrial fibrillation (principal); I21.4 Non-ST elevation (NSTEMI) myocardial infarction; I95.9 Hypotension, unspecified; Z99.81 Dependence on supplemental oxygen; J44.9 Chronic obstructive pulmonary disease, unspecified; I25.810 Atherosclerosis of coronary artery bypass graft(s) without angina pectoris; E11.9 Type 2 diabetes mellitus without complications; E78.5 Hyperlipidemia, unspecified; I25.2 Old myocardial infarction; Z95.1 Presence of aortocoronary bypass graft; E78.00 Pure hypercholesterolemia, unspecified; G47.30 Sleep apnea, unspecified; E03.9 Hypothyroidism, unspecified; M81.0 Age-related osteoporosis without current pathological fracture; M19.90 Unspecified osteoarthritis, unspecified site; I10 Essential (primary) hypertension; K21.9 Gastro-esophageal reflux disease without esophagitis; K59.09 Other constipation; F17.210 Nicotine dependence, cigarettes, uncomplicated; R00.1 Bradycardia, unspecified; G89.29 Other chronic pain; M54.5 Low back pain; F41.9 Anxiety disorder, unspecified; Z82.49 Family history of ischemic heart disease and other diseases of the circulatory system; Z79.82 Long term (current) use of aspirin; Z79.84 Long term (current) use of oral hypoglycemic drugs; Z88.0 Allergy status to penicillin
CPT/HCPCS: 71045; 74018; 76937; 80048; 80053; 81001; 82550; 82948; 83036; 83690; 83735; 83880; 84100; 84439; 84443; 84484; 85002; 85025; 85610; 85730; 93005; 93312; 93320; 93325; 93613; 93623; 93656; 93662; 94150; 99285; C1730; C1731; C1732; C1759; C1760; C1766; C2630; G0269; G0378; J0282; J1644; J1650; J1815; J1956; J2250; J2270; J2370; J2405; J2710; J2720; J3010; J7040; J7050

== ENCOUNTER 2017-12-06 22:13 | Inpatient (IN) ==
[2017-12-06] MEDS ORDERED: Etomidate Inj 20 MG/10 ML Ampul IV.PUSH ONE (22:23)
[2017-12-06] MEDS ORDERED: Etomidate Inj 40 MG/20 ML Vial IV.PUSH ONE (22:24)
[2017-12-06] MEDS ORDERED: Aspirin 300 MG Supp RECTAL ONE (22:40)
[2017-12-06 23:09] LABS: Activated Partial Thrombo Time 26.4 sec (24.3-30.1); INR 1.1 Ratio; Prothrombin Time 10.9 sec (9.8-11.6)
[2017-12-06 23:11] LABS: Baso # (Auto) 0.2 th/mm3 (0.0-0.2); Baso % (Auto) 0.9 % (0.0-2.0); Eos # (Auto) 0.9 th/mm3 (0.0-0.4); Eos % (Auto) 5.2 % (0.0-4.0); Hematocrit 46.8 % (35.0-46.0); Hemoglobin 15.5 gm/dL (11.6-15.3); Lymph # (Auto) 6.7 th/mm3 (1.0-4.8); Lymph % (Auto) 37.7 % (9.0-44.0); Mean Corpuscular HGB Conc 33.2 % (32.0-36.0); Mean Corpuscular Volume 90.4 fL (80.0-100.0); Mean Platelet Volume 8.8 fL (7.0-11.0); Mono # (Auto) 1.5 th/mm3 (0.0-0.9); Mono % (Auto) 8.7 % (0.0-8.0); Neut # (Auto) 8.5 th/mm3 (1.8-7.7); Neut % (Auto) 47.5 % (16.0-70.0); Platelet Count 309 th/mm3 (150-450); Red Blood Count 5.18 mil/mm3 (4.00-5.30); Red Cell Distribution Width 16.7 % (11.6-17.2); White Blood Count 17.8 th/mm3 (4.0-11.0)
[2017-12-06 23:14] LABS: ABG Base Excess -2.2 mmol/L (-2-2); ABG PCO2 57 mmHg (38-42); ABG PO2 72 mmHg (61-120)
[2017-12-06 23:14] LABS: Alanine Aminotransferase 16 U/L (10-53)
[2017-12-06 23:21] LABS: Albumin 3.8 g/dL (3.4-5.0); Alkaline Phosphatase 116 U/L (45-117); Anion Gap 15 meq/L (5-15); Aspartate Aminotransferase 30 U/L (15-37); Blood Urea Nitrogen 8 mg/dL (7-18); Calcium 9.2 mg/dL (8.5-10.1); Carbon Dioxide 22.1 meq/L (21.0-32.0); Chloride 105 meq/L (98-107); Creatine Kinase 101 U/L (26-192); Glomerular Filtration Rate 41 mL/min (>89); Glucose,Random 257 mg/dL (74-106); Sodium 142 meq/L (136-145); Total Protein 7.5 g/dL (6.4-8.2); Troponin I 0.04 ng/mL (0.02-0.05)
[2017-12-06 23:25] LABS: Potassium 4.6 meq/L (3.5-5.1)
[2017-12-06 23:36] LABS: Bilirubin,Urine Negative (Negative); Clarity,Urine Clear (Clear); Color,Urine Yellow (Yellw/Straw); Glucose,Urine (UA) 50 mg/dL (Negative); Hyaline Casts,Urine 1 /lpf (0-3); Leukocyte Esterase,Urine Negative (Negative); Mucus,Urine Few /lpf (Occasional); Nitrite,Urine Negative (Negative); Specific Gravity,Urine 1.008 (1.002-1.035)
[2017-12-07] MEDS: Propofol 1000 mg/100 ml Inj 1,000 MG/100 ML BOTTLE IV.CONT PRN ×5 (00:34→20:08)
[2017-12-07] MEDS ORDERED: Promethazine 25 MG Supp RECTAL PRN (00:36)
[2017-12-07] MEDS ORDERED: HYDROmorphone PF Inj 1 MG/ML Ampul IV.PUSH PRN (00:38)
[2017-12-07] MEDS ORDERED: Bisacodyl 10 MG Supp RECTAL PRN (00:38)
[2017-12-07] MEDS ORDERED: Acetaminophen 325 MG Tablet PO PRN (00:38)
--- NOTE | 2017-12-07 00:47 | P.HPCC ---
History of Present Illness Primary Care Physician: Yohan Davison MD History of Present Illness: Patient is a 72-year-old female presents with short of breath. She initially arrived via EMS on the BiPAP with oxygenation of 67. She did quit smoking about 2 weeks ago. She has significant history of coronary artery disease with non-STEMI and CHF per chart documentation. In the emergency department she continued to be severely hypoxemic with severe respiratory distress and was intubated by ED attending. Review of Systems unobtainable due to endotracheal tube PMFSH - History History Provided By: Medical Record - Medical History Medical History: Medical History (Last Updated 12/06/17 @ 22:34 by Abena Nair) Cholecystectomy planned (Acute) Diabetes (Acute) COPD (chronic obstructive pulmonary disease) (Acute) CAD (coronary artery disease) (Acute) Dysrhythmia, cardiac (Acute) Hypertension (Acute) Myocardial infarction (Acute) CHF (congestive heart failure) (Acute) Pneumonia - Surgical History Surgical History: Surgical History (Last Updated 12/06/17 @ 22:34 by Abena Nair) History of appendectomy (Acute) H/O cardiac catheterization (Acute) - Tobacco History Second Hand Smoke Exposure: Yes Smoking Status: Former smoker - Alcohol History How Often Do You Have a Drink Containing Alcohol: Monthly or less - Substance Use History Substance History: No History of Abuse - Travel History Recent Travel in the [place] Within the Last 8 Weeks: No Recent Travel Out of the Country Within the Last 8 Weeks: No - Immunization History Tetanus Immunization: >5 Years Hx Influenza Vaccine This Season: Yes Medications and Allergies Active Medications: Active Medications Acetaminophen (Tylenol) 650 mg PO Q6H PRN PRN Reason: PAIN 1-10 AND/OR FEVER >101F Al Hydroxide/Mg Hydroxide (Milk Of Lakesha Limitchell) 30 ml PO Q12H PRN PRN Reason: Mild Constipation Albuterol (Duoneb Neb (Prn)) 1 ampul NEB Q2HR NEB PRN PRN Reason: WHEEZING Albuterol (Duoneb Neb (Prn)) 1 ampul NEB Q6HR NEB RICHELLE Amlodipine Besylate (Norvasc) 5 mg PO DAILY RICHELLE Apixaban (Eliquis) 5 mg PO BID RICHELLE Aspirin (Ecotrin) 81 mg PO DAILY R[facility]LE Atorvastatin Calcium (Lipitor) 10 mg PO DAILY RICHELLE Bisacodyl (Dulcolax Supp) 10 mg RECTAL DAILY PRN PRN Reason: SEVERE CONSITIPATION Chlorhexidine Gluconate (Peridex 0.12% Oral Kit) 15 ml OROPHARYNG BID@0800, 2000 [facility] Chlorhexidine Gluconate (Chlorhexidine 2% Cloth) 3 pack TOPICAL DAILY@0400 RICHELLE Stop: 12/12/17 03:59 Chlorhexidine Gluconate (Chlorhexidine 2% Cloth) 3 pack TOPICAL DAILY@0400 PRN PRN Reason: Extra cloth needed Stop: 12/12/17 03:59 Famotidine (Pepcid) 20 mg PO DAILY [facility] Famotidine (Pepcid Pf Inj) 20 mg IV.PUSH Q12HR [facility] Furosemide (Lasix) 40 mg PO DAILY R[facility] Hydromorphone HCl (Dilaudid Pf Inj) 1 mg IV.PUSH Q4H PRN PRN Reason: PAIN SCALE 6 TO 10 Propofol (Diprivan 1000 Mg/100 Ml Inj) 1,000 mg in 100 mls @ 2.109 mls/hr IV.CONT TITRATE PRN; Protocol PRN Reason: Per Protocol Last Admin: 12/07/17 00:34 Dose: 5 mcg/kg/min, 2.11 mls/hr Sodium Chloride (Ns Inj) 1,000 mls @ 84 mls/hr IV.CONT .[id number] RICHELLE Azithromycin 500 mg/ Sodium (Chloride) 250 mls @ 250 mls/hr IV.SIG Q24H [facility] Isosorbide Mononitrate (Imdur) 60 mg PO DAILY [facility] Lactulose (Lactulose Liq) 30 ml PO DAILY PRN PRN Reason: SEVERE CONSITIPATION Metoprolol Succinate (Toprol Xl) 50 mg PO DAILY [facility] Midazolam HCl (Versed Inj) 2 mg IV.PUSH Q1H PRN PRN Reason: SEDATION Nitroglycerin (Nitrostat Sl (Override)) 0.4 mg SL Q5-15M PRN PRN Reason: Chest Pain Non-Formulary Medication (Guaifenesin [Guaifenesin]) 1,200 mg PO Q12H RICHELLE Non-Formulary Medication (Ranolazine [Ranexa]) 1,000 mg PO Q12H [facility] Ondansetron HCl (Zofran Inj) 4 mg IV.PUSH Q6H PRN PRN Reason: NAUSEA OR VOMITING Oxycodone/Acetaminophen (Percocet 10/325 Mg) 1 tab PO Q6H PRN PRN Reason: Acute Pain Promethazine HCl (Phenergan Supp) 25 mg RECTAL Q6H PRN PRN Reason: Nausea Senna/Docusate Sodium (Stephanie-Colace) 1 tab PO BID [facility] Sennosides (Senokot) 17.2 mg PO Q12H PRN PRN Reason: Moderate Constipation Sodium Chloride (Ns Flush) 2 ml IV.FLUSH BID [facility] Sodium Chloride (Ns Flush) 2 ml IV.FLUSH PRN PRN PRN Reason: FLUSH AFTER USING IV ACCESS Sucralfate (Carafate) 2 gm PO BID [facility] Allergies Allergy/AdvReac Type Severity Reaction Status Date / Time penicillin G Allergy Severe Anaphylaxis Verified 12/06/17 23:40 Home Medications Medication Instructions Recorded Confirmed Type amlodipine 5 mg PO DAILY 12/06/17 12/06/17 History apixaban [Eliquis] 5 mg PO BID 12/06/17 12/06/17 History aspirin [Aspirin Low Dose] 81 mg PO DAILY 12/06/17 12/06/17 History atorvastatin 10 mg PO DAILY 12/06/17 12/06/17 History famotidine [Pepcid] 20 mg PO DAILY 12/06/17 12/06/17 History furosemide [Lasix] 40 mg PO DAILY 12/06/17 12/06/17 History isosorbide mononitrate 60 mg PO DAILY 12/06/17 12/06/17 History nitroglycerin 0.4 mg SUBLINGUAL Q5-15M PRN 12/06/17 12/06/17 History ondansetron [Zofran ODT] 8 mg PO TID PRN 12/06/17 12/06/17 History sennosides [Senna Lax] 8.6 mg PO BID PRN 12/06/17 12/07/17 History guaifenesin 1,200 mg PO Q12H 12/07/17 12/07/17 History metformin 500 mg PO BID 12/07/17 12/07/17 History metoprolol succinate 50 mg PO DAILY 12/07/17 12/07/17 History morphine 60 mg PO Q8H 12/07/17 12/07/17 History oxycodone-acetaminophen [Percocet] 1 tab PO Q6H PRN 12/07/17 12/07/17 History pantoprazole 40 mg PO DAILY 12/07/17 12/07/17 History potassium chloride 20 meq PO DAILY 12/07/17 12/07/17 History promethazine [Phenergan] 25 mg IA Q6H PRN 12/07/17 12/07/17 History ranolazine [Ranexa] 1,000 mg PO Q12H 12/07/17 12/07/17 History sucralfate [Carafate] 2 g PO BID 12/07/17 12/07/17 History Results - Labs CBC & Chem 7: 12/06/17 22:45 12/06/17 22:45 Labs: Short CBC 12/06/17 Range/Units 22:45 WBC 17.8 H (4.0-11.0) th/mm3 Hgb 15.5 H (11.6-15.3) gm/dL Hct 46.8 H (35.0-46.0) % Plt Count 309 (150-450) th/mm3 BMP 12/06/17 22:45 Sodium 142 Potassium 4.6 Chloride 105 Carbon Dioxide 22.1 BUN 8 Creatinine 1.29 H Calcium 9.2 Cardiac Enzymes 12/06/17 Range/Units 22:45 Total Creatine Kinase 101 (26-192) U/L Troponin I 0.04 (0.02-0.05) ng/mL Liver Function 12/06/17 Range/Units 22:45 Total Bilirubin 0.6 (0.2-1.0) mg/dL AST 30 (15-37) U/L ALT 16 (10-53) U/L Alkaline Phosphatase 116 (45-117) U/L Albumin 3.8 (3.4-5.0) g/dL Urine 12/06/17 Range/Units 23:15 Urine Color Yellow (Yellw/Straw) Urine Clarity Clear (Clear) Urine pH 6.0 (5.0-8.5) Ur Specific [place] 1.008 (1.002-1.035) Urine Protein 30 H (Neg-Trace) mg/dL Urine Glucose (UA) 50 (Negative) mg/dL Exam Vital signs: Vital Signs 12/06/17 22:15 12/06/17 22:17 12/06/17 22:30 Temperature 98.2 F Pulse Rate 138 H Respiratory Rate 30 H 16 Blood Pressure 168/92 H Pulse Oximetry 94 L 75 L 96 12/06/17 23:00 12/06/17 23:15 12/06/17 23:40 Temperature Pulse Rate 112 H Respiratory Rate 20 20 Blood Pressure 167/99 H Pulse Oximetry 99 94 L 12/07/17 00:35 Temperature Pulse Rate 97 H Respiratory Rate 20 Blood Pressure 149/98 H Pulse Oximetry 100 Intake & Output 12/06/17 12/06/17 12/07/17 06:59 18:59 06:59 Weight 70.307 kg - Constitutional mild distress - Routine HEENT Exam Head: Present: normocephalic, atraumatic Eye: Present: PERRL ENT: Present: mucous membranes moist - Routine Neck Exam Present: supple. Absent: JVD, carotid bruit - Routine Respiratory Exam Present: patient mechanically ventilated, rhonchi, wheezes. Absent: stridor, crackles - Routine Cardiovascular Exam Present: RRR, S1, S2 - Routine Abdominal Exam Present: soft, normoactive bowel sounds - Routine Extremities Exam Absent: cyanosis, clubbing, edema - Routine Skin Exam Present: intact. Absent: cyanosis, erythema - Routine Neurological Exam Present: moving all extremities Caprini VTE Risk Assessment Caprini VTE Risk Assessment: Moderate/High Risk (score >= 2) Caprini Risk Assessment Model: Point Value = 1 Point Value = 2 Point Value = 3 Point Value = 5 Age 41-60 Minor surgery BMI > 25 kg/m2 Swollen legs Varicose veins or History of unexplained or recurrent spontaneous Oral contraceptives or hormone replacement Sepsis (< 1 month) Serious lung disease, including pneumonia (< 1 month) Abnormal pulmonary function Acute myocardial infarction Congestive heart failure (< 1 month) History of inflammatory bowel disease Medical patient at bed rest Age 61-74 Arthroscopic surgery Major open surgery (> 45 min) Laparoscopic surgery (> 45 min) Malignancy Confined to bed (> 72 hours) Immobilizing plaster cast Central venous access Age >= 75 History of VTE Family history of VTE Factor V Leiden Prothrombin [id number] Lupus anticoagulant Anticardiolipin antibodies Elevated serum homocysteine Heparin-induced thrombocytopenia Other congenital or acquired thrombophilia Stroke (< 1 month) Elective arthroplasty Hip, pelvis, or leg fracture Acute spinal cord injury (< 1 month) Prophylaxis Regimen: Total Risk Factor Score Risk Level Prophylaxis Regimen 0-1 Low Early ambulation 2 Moderate Order ONE of the following: *Sequential Compression Device (SCD) *Heparin 5000 units SQ BID 3-4 Higher Order ONE of the following medications: *Heparin 5000 units SQ TID *Enoxaparin/Lovenox 40 mg SQ daily (WT < 150 kg, CrCl > 30 mL/min) *Enoxaparin/Lovenox 30 mg SQ daily (WT < 150 kg, CrCl > 10-29 mL/min) *Enoxaparin/Lovenox 30 mg SQ BID (WT < 150 kg, CrCl > 30 mL/min) AND/OR *Sequential Compression Device (SCD) 5 or more Highest Order ONE of the following medications: *Heparin 5000 units SQ TID (Preferred with Epidurals) *Enoxaparin/Lovenox 40 mg SQ daily (WT < 150 kg, CrCl > 30 mL/min) *Enoxaparin/Lovenox 30 mg SQ daily (WT < 150 kg, CrCl > 10-29 mL/min) *Enoxaparin/Lovenox 30 mg SQ BID (WT < 150 kg, CrCl > 30 mL/min) AND *Sequential Compression Device (SCD) Assessment and Plan - Assessment and Plan Plan: Respiratory failure -COPD exacerbation -DuoNeb scheduled and as needed -IV steroids -Empiric antibiotics Hypertension -Norvasc -Metoprolol CHF -Acute on chronic CHF exacerbation -Isosorbide mononitrate -Metoprolol -Lasix -Ranexa -Series of troponins and EKGs to rule out acute coronary syndrome Coronary artery disease -Aspirin -Atorvastatin -Eliquis -Series of troponins and EKGs DVT GI prophylaxis -Teds SCDs -Eliquis -Pepcid Critical Care: The total critical care time was 35 minutes. Time to perform other separately billable procedures was not included in the critical care time.
--- NOTE | 2017-12-07 01:00 | XR ---
EXAM DATE: 12/07/2017 12:36 AM EDT AGE/SEX: 72 years / Female INDICATIONS: Short of breath, post intubation. CLINICAL DATA: This is the patient's initial encounter. Patient reports that signs and symptoms have been present for 1 day and indicates a pain score of Nonresponsive. MEDICAL/SURGICAL HISTORY: . Chronic obstructive pulmonary disease. Hypertension. A-fib. Myocard ial infarction. . CABG. COMPARISON: [facility], CHEST SINGLE AP, 11/08/2017. . FINDINGS: ETT approximately 4 cm above the zev. NGT coursing beyond the GE junction with tip omitted from th e image. Cardiomediastinal contours are stable. Patchy airspace disease in the lower lung zones bilat erally with mild interstitial prominence. Remainder of the exam is unchanged. CONCLUSION: 1. ETT in good position. NGT beyond the GE junction. 2. Patchy bilateral lower lobe airspace disease. 3. Mild interstitial edema. Electronically signed by: Eddie Armstrong MD 12/07/2017 12:58 AM EDT
[2017-12-07 01:02] LABS: Eosinophils 8 % (0-4); Lymphocytes 39 % (9-44); Monocytes 3 % (0-8)
[2017-12-07 01:03] LABS: Platelet Estimate Normal (Normal); Platelet Morphology Normal (Normal)
[2017-12-07] MEDS ORDERED: Vancomycin Inj 500 MG in Sodium Chlor 0.9% Inj 100 ML IV.SIG ONE (01:10)
[2017-12-07] MEDS: Sod Chloride 0.9% Inj 1,000 ML IV.CONT SCH ×2 (01:11→13:20)
[2017-12-07] MEDS ORDERED: Sod Chloride 0.9% Inj 1,000 ML IV.SIG ONE (01:14)
--- NOTE | 2017-12-07 01:21 | ED ---
ALL General Chief Complaint: Shortness of Breath/Dyspnea Stated Complaint: CHF Time Seen by Provider: 12/06/17 22:22 History of Present Illness Patient is a 72-year-old female presents to the emergency department with short of breath. She arrives via EMS on BiPAP with a pulse ox of 67% She has a history of recent CO and CHF. She quit smoking 2 weeks ago. She is unable to provide any history because of her condition. Partner at the bedside states that she has not been feeling well for the last day or so and he found her responsive, but slumped over in a chair. Related Data Home Medications Medication Instructions Recorded Confirmed amlodipine 5 mg PO DAILY 12/06/17 12/06/17 apixaban [Eliquis] 5 mg PO BID 12/06/17 12/06/17 aspirin [Aspirin Low Dose] 81 mg PO DAILY 12/06/17 12/06/17 atorvastatin 10 mg PO DAILY 12/06/17 12/06/17 famotidine [Pepcid] 20 mg PO DAILY 12/06/17 12/06/17 furosemide [Lasix] 40 mg PO DAILY 12/06/17 12/06/17 isosorbide mononitrate 60 mg PO DAILY 12/06/17 12/06/17 nitroglycerin 0.4 mg SUBLINGUAL Q5-15M PRN 12/06/17 12/06/17 ondansetron [Zofran ODT] 8 mg PO TID PRN 12/06/17 12/06/17 sennosides [Senna Lax] 8.6 mg PO BID PRN 12/06/17 12/07/17 guaifenesin 1,200 mg PO Q12H 12/07/17 12/07/17 metformin 500 mg PO BID 12/07/17 12/07/17 metoprolol succinate 50 mg PO DAILY 12/07/17 12/07/17 morphine 60 mg PO Q8H 12/07/17 12/07/17 oxycodone-acetaminophen [Percocet] 1 tab PO Q6H PRN 12/07/17 12/07/17 pantoprazole 40 mg PO DAILY 12/07/17 12/07/17 potassium chloride 20 meq PO DAILY 12/07/17 12/07/17 promethazine [Phenergan] 25 mg RI Q6H PRN 12/07/17 12/07/17 ranolazine [Ranexa] 1,000 mg PO Q12H 12/07/17 12/07/17 sucralfate [Carafate] 2 g PO BID 12/07/17 12/07/17 Allergies Allergy/AdvReac Type Severity Reaction Status Date / Time penicillin G Allergy Severe Anaphylaxis Verified 12/06/17 23:40 Review of Systems ROS Unobtainable due to endotracheal tube PMFSH Medical History Medical History Cholecystectomy planned (Acute) Diabetes (Acute) COPD (chronic obstructive pulmonary disease) (Acute) CAD (coronary artery disease) (Acute) Dysrhythmia, cardiac (Acute) Hypertension (Acute) Myocardial infarction (Acute) CHF (congestive heart failure) (Acute) Pneumonia (Acute) Surgical History Surgical History History of appendectomy (Acute) H/O cardiac catheterization (Acute) Social History Social History Substance History: No History of Abuse Second Hand Smoke Exposure: Yes Smoking Status: Former smoker How Often Do You Have a Drink Containing Alcohol: Monthly or less Recent Travel in [facility] within the Last 8 Weeks: No Recent Out of Country Travel within the Last 8 Weeks: No Immunization History Tetanus Immunization: >5 Years Hx Influenza Vaccine This Season: Yes Exam Narrative Exam Narrative: GENERAL: 72-year-old female in acute distress secondary to hypoxia SKIN: Diaphoretic and cyanotic. HEAD: Atraumatic. Normocephalic. EYES: Pupils equal and round. No scleral icterus. No injection or drainage. ENT: No nasal bleeding or discharge. Mucous membranes pink and moist. NECK: Trachea midline. No JVD. CARDIOVASCULAR: Regular rate and rhythm. No murmur appreciated. RESPIRATORY: Bilateral rales. GASTROINTESTINAL: Abdomen soft, non-tender, nondistended. Hepatic and splenic margins not palpable. MUSCULOSKELETAL: No obvious deformities. No clubbing. No cyanosis. No edema. NEUROLOGICAL: Responds to voice and follows commands. Course Initial Documented Vital Signs Pulse Oximetry 94 L 12/06/17 22:15 Last Documented Vital Signs Temperature 99.0 F 12/08/17 04:00 Pulse Rate 84 12/08/17 04:00 Respiratory Rate 17 12/08/17 04:00 Blood Pressure 146/73 H 12/08/17 04:00 Pulse Oximetry 100 12/08/17 04:00 Critical Care Time Critical Care Time: Yes Total Critical Care Time: 40 Attestation: Patient required more than 40 minutes of critical care time Medical Decision Making MDM Narrative Medical decision making narrative: Patient was seen and evaluated in the emergency department. She arrived in respiratory distress hypoxic. She was subsequently intubated using an 8 oh ET tube and a MAC 4 blade. She was given rocuronium 50 mg and 20 mg of etomidate. The initial bolus of rocuronium infiltrated and a second dose was given through an alternative IV successfully. She was intubated on the first attempt without difficulty and her saturation improved. She was admitted to the ICU under the care of Dr. Andreas Hadley Lab Data Result diagrams: 12/08/17 04:26 12/08/17 04:26 Lab Results 12/06/17 12/06/17 12/06/17 Range/Units 22:45 22:45 22:45 WBC 17.8 H (4.0-11.0) th/mm3 RBC 5.18 (4.00-5.30) mil/mm3 Hgb 15.5 H (11.6-15.3) gm/dL Hct 46.8 H (35.0-46.0) % MCV 90.4 (80.0-100.0) fL MCH 30.0 (27.0-34.0) pg MCHC 33.2 (32.0-36.0) % RDW 16.7 (11.6-17.2) % Plt Count 309 (150-450) th/mm3 MPV 8.8 (7.0-11.0) fL Prelim Diff (Auto) Slide review pending Neut % (Auto) 47.5 (16.0-70.0) % Lymph % (Auto) 37.7 (9.0-44.0) % [place] % (Auto) 8.7 H (0.0-8.0) % Eos % (Auto) 5.2 H (0.0-4.0) % Baso % (Auto) 0.9 (0.0-2.0) % Neut # (Auto) 8.5 H (1.8-7.7) th/mm3 Lymph # (Auto) 6.7 H (1.0-4.8) th/mm3 [place] # (Auto) 1.5 H (0.0-0.9) th/mm3 Eos # (Auto) 0.9 H (0.0-0.4) th/mm3 Baso # (Auto) 0.2 (0.0-0.2) th/mm3 WBC Differential Manual diff final Seg Neuts % (Manual) 45 (16-70) % Band Neuts % (Manual) 3 (0-6) % Lymphocytes % (Manual) 39 (9-44) % Monocytes % (Manual) 3 (0-8) % Eosinophils % (Manual) 8 H (0-4) % Basophils % (Manual) 2 (0-2) % Abs Neuts (Manual) 8.5 H (1.8-7.7) th/mm3 Differential Comment . Platelet Estimate Normal (Normal) Platelet Morphology Normal (Normal) PT 10.9 (9.8-11.6) sec INR 1.1 Ratio APTT 26.4 (24.3-30.1) sec Puncture Site Patient Temperature O2 Saturation (90-100) % ABG pH (7.380-7.420) ABG pCO2 (38-42) mmHg ABG pO2 (61-120) mmHg ABG HCO3 (22-26) mmol/L ABG O2 Content (12.0-20.0) Vol % ABG Base Excess (-2-2) mmol/L ABG Methemoglobin (0-2) % Tushar Test Hemoglobin (12.0-16.0) G/DL Carboxyhemoglobin (0-4) % O2 Delivery Device Vent Setting Inspired O2 % Critical Value Sodium 142 (136-145) meq/L Potassium 4.6 (3.5-5.1) meq/L Chloride 105 (98-107) meq/L Carbon Dioxide 22.1 (21.0-32.0) meq/L Anion Gap 15 (5-15) meq/L BUN 8 (7-18) mg/dL Creatinine 1.29 H (0.50-1.00) mg/dL Estimated GFR 41 L (>89) mL/min POC Glucose (68-110) mg/dl Random Glucose 257 H (74-106) mg/dL Lactic Acid (0.4-2.0) mmol/L Calcium 9.2 (8.5-10.1) mg/dL Phosphorus (2.5-4.9) mg/dL Magnesium (1.5-2.5) mg/dL Total Bilirubin 0.6 (0.2-1.0) mg/dL AST 30 (15-37) U/L ALT 16 (10-53) U/L Alkaline Phosphatase 116 (45-117) U/L Total Creatine Kinase 101 (26-192) U/L Troponin I 0.04 (0.02-0.05) ng/mL B-Natriuretic Peptide (0-100) pg/mL Total Protein 7.5 (6.4-8.2) g/dL Albumin 3.8 (3.4-5.0) g/dL Urine Color (Yellw/Straw) Urine Clarity (Clear) Urine pH (5.0-8.5) Ur Specific Gordon (1.002-1.035) Urine Protein (Neg-Trace) mg/dL Urine Glucose (UA) (Negative) mg/dL Urine Ketones (Negative) mg/dL Urine Occult Blood (Negative) Urine Nitrate (Negative) Urine Bilirubin (Negative) Urine Urobilinogen (Less than 2) mg/dL Ur Leukocyte Esterase (Negative) Urine RBC (0-3) /hpf Urine WBC (0-5) /hpf Hyaline Casts (0-3) /lpf Urine Mucus (Occasional) /lpf Nasal Screen MRSA (PCR) (Negative) 12/06/17 12/06/17 12/06/17 Range/Units 22:45 23:02 23:15 WBC (4.0-11.0) th/mm3 RBC (4.00-5.30) mil/mm3 Hgb (11.6-15.3) gm/dL Hct (35.0-46.0) % MCV (80.0-100.0) fL MCH (27.0-34.0) pg MCHC (32.0-36.0) % RDW (11.6-17.2) % Plt Count (150-450) th/mm3 MPV (7.0-11.0) fL Prelim Diff (Auto) Neut % (Auto) (16.0-70.0) % Lymph % (Auto) (9.0-44.0) % [place] % (Auto) (0.0-8.0) % Eos % (Auto) (0.0-4.0) % Baso % (Auto) (0.0-2.0) % Neut # (Auto) (1.8-7.7) th/mm3 Lymph # (Auto) (1.0-4.8) th/mm3 [place] # (Auto) (0.0-0.9) th/mm3 Eos # (Auto) (0.0-0.4) th/mm3 Baso # (Auto) (0.0-0.2) th/mm3 WBC Differential Seg Neuts % (Manual) (16-70) % Band Neuts % (Manual) (0-6) % Lymphocytes % (Manual) (9-44) % Monocytes % (Manual) (0-8) % Eosinophils % (Manual) (0-4) % Basophils % (Manual) (0-2) % Abs Neuts (Manual) (1.8-7.7) th/mm3 Differential Comment Platelet Estimate (Normal) Platelet Morphology (Normal) PT (9.8-11.6) sec INR Ratio APTT (24.3-30.1) sec Puncture Site Right radial Patient Temperature 98.6 O2 Saturation 89 L* (90-100) % ABG pH 7.25 L* (7.380-7.420) ABG pCO2 57 H* (38-42) mmHg ABG pO2 72 (61-120) mmHg ABG HCO3 24 (22-26) mmol/L ABG O2 Content 19.2 (12.0-20.0) Vol % ABG Base Excess -2.2 L (-2-2) mmol/L ABG Methemoglobin 0.6 (0-2) % Tushar Test Present Hemoglobin 15.3 (12.0-16.0) G/DL Carboxyhemoglobin 1.3 (0-4) % O2 Delivery Device Ventilator Vent Setting Prvc/ac Inspired O2 50 % Critical Value Yes Sodium (136-145) meq/L Potassium (3.5-5.1) meq/L Chloride (98-107) meq/L Carbon Dioxide (21.0-32.0) meq/L Anion Gap (5-15) meq/L BUN (7-18) mg/dL Creatinine (0.50-1.00) mg/dL Estimated GFR (>89) mL/min POC Glucose (68-110) mg/dl Random Glucose (74-106) mg/dL Lactic Acid 3.7 H (0.4-2.0) mmol/L Calcium (8.5-10.1) mg/dL Phosphorus (2.5-4.9) mg/dL Magnesium (1.5-2.5) mg/dL Total Bilirubin (0.2-1.0) mg/dL AST (15-37) U/L ALT (10-53) U/L Alkaline Phosphatase (45-117) U/L Total Creatine Kinase (26-192) U/L Troponin I (0.02-0.05) ng/mL B-Natriuretic Peptide 549 H (0-100) pg/mL Total Protein (6.4-8.2) g/dL Albumin (3.4-5.0) g/dL Urine Color (Yellw/Straw) Urine Clarity (Clear) Urine pH (5.0-8.5) Ur Specific Gordon (1.002-1.035) Urine Protein (Neg-Trace) mg/dL Urine Glucose (UA) (Negative) mg/dL Urine Ketones (Negative) mg/dL Urine Occult Blood (Negative) Urine Nitrate (Negative) Urine Bilirubin (Negative) Urine Urobilinogen (Less than 2) mg/dL Ur Leukocyte Esterase (Negative) Urine RBC (0-3) /hpf Urine WBC (0-5) /hpf Hyaline Casts (0-3) /lpf Urine Mucus (Occasional) /lpf Nasal Screen MRSA (PCR) (Negative) 12/06/17 12/07/17 12/07/17 Range/Units 23:15 02:30 03:05 WBC (4.0-11.0) th/mm3 RBC (4.00-5.30) mil/mm3 Hgb (11.6-15.3) gm/dL Hct (35.0-46.0) % MCV (80.0-100.0) fL MCH (27.0-34.0) pg MCHC (32.0-36.0) % RDW (11.6-17.2) % Plt Count (150-450) th/mm3 MPV (7.0-11.0) fL Prelim Diff (Auto) Neut % (Auto) (16.0-70.0) % Lymph % (Auto) (9.0-44.0) % [place] % (Auto) (0.0-8.0) % Eos % (Auto) (0.0-4.0) % Baso % (Auto) (0.0-2.0) % Neut # (Auto) (1.8-7.7) th/mm3 Lymph # (Auto) (1.0-4.8) th/mm3 [place] # (Auto) (0.0-0.9) th/mm3 Eos # (Auto) (0.0-0.4) th/mm3 Baso # (Auto) (0.0-0.2) th/mm3 WBC Differential Seg Neuts % (Manual) (16-70) % Band Neuts % (Manual) (0-6) % Lymphocytes % (Manual) (9-44) % Monocytes % (Manual) (0-8) % Eosinophils % (Manual) (0-4) % Basophils % (Manual) (0-2) % Abs Neuts (Manual) (1.8-7.7) th/mm3 Differential Comment Platelet Estimate (Normal) Platelet Morphology (Normal) PT (9.8-11.6) sec INR Ratio APTT (24.3-30.1) sec Puncture Site Patient Temperature O2 Saturation (90-100) % ABG pH (7.380-7.420) ABG pCO2 (38-42) mmHg ABG pO2 (61-120) mmHg ABG HCO3 (22-26) mmol/L ABG O2 Content (12.0-20.0) Vol % ABG Base Excess (-2-2) mmol/L ABG Methemoglobin (0-2) % Tushar Test Hemoglobin (12.0-16.0) G/DL Carboxyhemoglobin (0-4) % O2 Delivery Device Vent Setting Inspired O2 % Critical Value Sodium (136-145) meq/L Potassium (3.5-5.1) meq/L Chloride (98-107) meq/L Carbon Dioxide (21.0-32.0) meq/L Anion Gap (5-15) meq/L BUN (7-18) mg/dL Creatinine (0.50-1.00) mg/dL Estimated GFR (>89) mL/min POC Glucose (68-110) mg/dl Random Glucose (74-106) mg/dL Lactic Acid 2.6 H (0.4-2.0) mmol/L Calcium (8.5-10.1) mg/dL Phosphorus (2.5-4.9) mg/dL Magnesium (1.5-2.5) mg/dL Total Bilirubin (0.2-1.0) mg/dL AST (15-37) U/L ALT (10-53) U/L Alkaline Phosphatase (45-117) U/L Total Creatine Kinase (26-192) U/L Troponin I (0.02-0.05) ng/mL B-Natriuretic Peptide (0-100) pg/mL Total Protein (6.4-8.2) g/dL Albumin (3.4-5.0) g/dL Urine Color Yellow (Yellw/Straw) Urine Clarity Clear (Clear) Urine pH 6.0 (5.0-8.5) Ur Specific Gordon 1.008 (1.002-1.035) Urine Protein 30 H (Neg-Trace) mg/dL Urine Glucose (UA) 50 (Negative) mg/dL Urine Ketones Negative (Negative) mg/dL Urine Occult Blood Negative (Negative) Urine Nitrate Negative (Negative) Urine Bilirubin Negative (Negative) Urine Urobilinogen Less than 2 (Less than 2) mg/dL Ur Leukocyte Esterase Negative (Negative) Urine RBC 1 (0-3) /hpf Urine WBC 1 (0-5) /hpf Hyaline Casts 1 (0-3) /lpf Urine Mucus Few H (Occasional) /lpf Nasal Screen MRSA (PCR) Not detected (Negative) 12/07/17 12/07/17 12/07/17 Range/Units 05:03 05:36 10:35 WBC (4.0-11.0) th/mm3 RBC (4.00-5.30) mil/mm3 Hgb (11.6-15.3) gm/dL Hct (35.0-46.0) % MCV (80.0-100.0) fL MCH (27.0-34.0) pg MCHC (32.0-36.0) % RDW (11.6-17.2) % Plt Count (150-450) th/mm3 MPV (7.0-11.0) fL Prelim Diff (Auto) Neut % (Auto) (16.0-70.0) % Lymph % (Auto) (9.0-44.0) % [place] % (Auto) (0.0-8.0) % Eos % (Auto) (0.0-4.0) % Baso % (Auto) (0.0-2.0) % Neut # (Auto) (1.8-7.7) th/mm3 Lymph # (Auto) (1.0-4.8) th/mm3 [place] # (Auto) (0.0-0.9) th/mm3 Eos # (Auto) (0.0-0.4) th/mm3 Baso # (Auto) (0.0-0.2) th/mm3 WBC Differential Seg Neuts % (Manual) (16-70) % Band Neuts % (Manual) (0-6) % Lymphocytes % (Manual) (9-44) % Monocytes % (Manual) (0-8) % Eosinophils % (Manual) (0-4) % Basophils % (Manual) (0-2) % Abs Neuts (Manual) (1.8-7.7) th/mm3 Differential Comment Platelet Estimate (Normal) Platelet Morphology (Normal) PT (9.8-11.6) sec INR Ratio APTT (24.3-30.1) sec Puncture Site Patient Temperature O2 Saturation (90-100) % ABG pH (7.380-7.420) ABG pCO2 (38-42) mmHg ABG pO2 (61-120) mmHg ABG HCO3 (22-26) mmol/L ABG O2 Content (12.0-20.0) Vol % ABG Base Excess (-2-2) mmol/L ABG Methemoglobin (0-2) % Tushar Test Hemoglobin (12.0-16.0) G/DL Carboxyhemoglobin (0-4) % O2 Delivery Device Vent Setting Inspired O2 % Critical Value Sodium (136-145) meq/L Potassium (3.5-5.1) meq/L Chloride (98-107) meq/L Carbon Dioxide (21.0-32.0) meq/L Anion Gap (5-15) meq/L BUN (7-18) mg/dL Creatinine (0.50-1.00) mg/dL Estimated GFR (>89) mL/min POC Glucose 159 H (68-110) mg/dl Random Glucose (74-106) mg/dL Lactic Acid (0.4-2.0) mmol/L Calcium (8.5-10.1) mg/dL Phosphorus (2.5-4.9) mg/dL Magnesium (1.5-2.5) mg/dL Total Bilirubin (0.2-1.0) mg/dL AST (15-37) U/L ALT (10-53) U/L Alkaline Phosphatase (45-117) U/L Total Creatine Kinase (26-192) U/L Troponin I 4.65 H* D 3.91 H* D (0.02-0.05) ng/mL B-Natriuretic Peptide (0-100) pg/mL Total Protein (6.4-8.2) g/dL Albumin (3.4-5.0) g/dL Urine Color (Yellw/Straw) Urine Clarity (Clear) Urine pH (5.0-8.5) Ur Specific Gordon (1.002-1.035) Urine Protein (Neg-Trace) mg/dL Urine Glucose (UA) (Negative) mg/dL Urine Ketones (Negative) mg/dL Urine Occult Blood (Negative) Urine Nitrate (Negative) Urine Bilirubin (Negative) Urine Urobilinogen (Less than 2) mg/dL Ur Leukocyte Esterase (Negative) Urine RBC (0-3) /hpf Urine WBC (0-5) /hpf Hyaline Casts (0-3) /lpf Urine Mucus (Occasional) /lpf Nasal Screen MRSA (PCR) (Negative) 12/08/17 12/08/17 12/08/17 Range/Units 00:57 04:26 04:26 WBC 13.5 H (4.0-11.0) th/mm3 RBC 4.88 (4.00-5.30) mil/mm3 Hgb 14.0 (11.6-15.3) gm/dL Hct 41.6 (35.0-46.0) % MCV 85.3 D (80.0-100.0) fL MCH 28.7 (27.0-34.0) pg MCHC 33.7 (32.0-36.0) % RDW 16.1 (11.6-17.2) % Plt Count 249 (150-450) th/mm3 MPV 8.1 (7.0-11.0) fL Prelim Diff (Auto) Neut % (Auto) 88.9 H (16.0-70.0) % Lymph % (Auto) 7.6 L (9.0-44.0) % [place] % (Auto) 3.4 (0.0-8.0) % Eos % (Auto) 0.0 (0.0-4.0) % Baso % (Auto) 0.1 (0.0-2.0) % Neut # (Auto) 12.0 H (1.8-7.7) th/mm3 Lymph # (Auto) 1.0 (1.0-4.8) th/mm3 [place] # (Auto) 0.5 (0.0-0.9) th/mm3 Eos # (Auto) 0.0 (0.0-0.4) th/mm3 Baso # (Auto) 0.0 (0.0-0.2) th/mm3 WBC Differential . Seg Neuts % (Manual) (16-70) % Band Neuts % (Manual) (0-6) % Lymphocytes % (Manual) (9-44) % Monocytes % (Manual) (0-8) % Eosinophils % (Manual) (0-4) % Basophils % (Manual) (0-2) % Abs Neuts (Manual) (1.8-7.7) th/mm3 Differential Comment Auto diff final Platelet Estimate (Normal) Platelet Morphology (Normal) PT 10.9 (9.8-11.6) sec INR 1.1 Ratio APTT 26.6 (24.3-30.1) sec Puncture Site Patient Temperature O2 Saturation (90-100) % ABG pH (7.380-7.420) ABG pCO2 (38-42) mmHg ABG pO2 (61-120) mmHg ABG HCO3 (22-26) mmol/L ABG O2 Content (12.0-20.0) Vol % ABG Base Excess (-2-2) mmol/L ABG Methemoglobin (0-2) % Tushar Test Hemoglobin (12.0-16.0) G/DL Carboxyhemoglobin (0-4) % O2 Delivery Device Vent Setting Inspired O2 % Critical Value Sodium (136-145) meq/L Potassium (3.5-5.1) meq/L Chloride (98-107) meq/L Carbon Dioxide (21.0-32.0) meq/L Anion Gap (5-15) meq/L BUN (7-18) mg/dL Creatinine (0.50-1.00) mg/dL Estimated GFR (>89) mL/min POC Glucose 219 H (68-110) mg/dl Random Glucose (74-106) mg/dL Lactic Acid (0.4-2.0) mmol/L Calcium (8.5-10.1) mg/dL Phosphorus (2.5-4.9) mg/dL Magnesium (1.5-2.5) mg/dL Total Bilirubin (0.2-1.0) mg/dL AST (15-37) U/L ALT (10-53) U/L Alkaline Phosphatase (45-117) U/L Total Creatine Kinase (26-192) U/L Troponin I (0.02-0.05) ng/mL B-Natriuretic Peptide (0-100) pg/mL Total Protein (6.4-8.2) g/dL Albumin (3.4-5.0) g/dL Urine Color (Yellw/Straw) Urine Clarity (Clear) Urine pH (5.0-8.5) Ur Specific Gordon (1.002-1.035) Urine Protein (Neg-Trace) mg/dL Urine Glucose (UA) (Negative) mg/dL Urine Ketones (Negative) mg/dL Urine Occult Blood (Negative) Urine Nitrate (Negative) Urine Bilirubin (Negative) Urine Urobilinogen (Less than 2) mg/dL Ur Leukocyte Esterase (Negative) Urine RBC (0-3) /hpf Urine WBC (0-5) /hpf Hyaline Casts (0-3) /lpf Urine Mucus (Occasional) /lpf Nasal Screen MRSA (PCR) (Negative) 12/08/17 Range/Units 04:26 WBC (4.0-11.0) th/mm3 RBC (4.00-5.30) mil/mm3 Hgb (11.6-15.3) gm/dL Hct (35.0-46.0) % MCV (80.0-100.0) fL MCH (27.0-34.0) pg MCHC (32.0-36.0) % RDW (11.6-17.2) % Plt Count (150-450) th/mm3 MPV (7.0-11.0) fL Prelim Diff (Auto) Neut % (Auto) (16.0-70.0) % Lymph % (Auto) (9.0-44.0) % [place] % (Auto) (0.0-8.0) % Eos % (Auto) (0.0-4.0) % Baso % (Auto) (0.0-2.0) % Neut # (Auto) (1.8-7.7) th/mm3 Lymph # (Auto) (1.0-4.8) th/mm3 [place] # (Auto) (0.0-0.9) th/mm3 Eos # (Auto) (0.0-0.4) th/mm3 Baso # (Auto) (0.0-0.2) th/mm3 WBC Differential Seg Neuts % (Manual) (16-70) % Band Neuts % (Manual) (0-6) % Lymphocytes % (Manual) (9-44) % Monocytes % (Manual) (0-8) % Eosinophils % (Manual) (0-4) % Basophils % (Manual) (0-2) % Abs Neuts (Manual) (1.8-7.7) th/mm3 Differential Comment Platelet Estimate (Normal) Platelet Morphology (Normal) PT (9.8-11.6) sec INR Ratio APTT (24.3-30.1) sec Puncture Site Patient Temperature O2 Saturation (90-100) % ABG pH (7.380-7.420) ABG pCO2 (38-42) mmHg ABG pO2 (61-120) mmHg ABG HCO3 (22-26) mmol/L ABG O2 Content (12.0-20.0) Vol % ABG Base Excess (-2-2) mmol/L ABG Methemoglobin (0-2) % Tushar Test Hemoglobin (12.0-16.0) G/DL Carboxyhemoglobin (0-4) % O2 Delivery Device Vent Setting Inspired O2 % Critical Value Sodium 140 (136-145) meq/L Potassium 3.4 L D (3.5-5.1) meq/L Chloride 103 (98-107) meq/L Carbon Dioxide 27.0 (21.0-32.0) meq/L Anion Gap 10 (5-15) meq/L BUN 13 (7-18) mg/dL Creatinine 0.96 (0.50-1.00) mg/dL Estimated GFR 57 L (>89) mL/min POC Glucose (68-110) mg/dl Random Glucose 258 H (74-106) mg/dL Lactic Acid (0.4-2.0) mmol/L Calcium 8.5 (8.5-10.1) mg/dL Phosphorus 3.3 (2.5-4.9) mg/dL Magnesium 2.3 (1.5-2.5) mg/dL Total Bilirubin 0.5 (0.2-1.0) mg/dL AST 25 (15-37) U/L ALT 14 (10-53) U/L Alkaline Phosphatase 92 (45-117) U/L Total Creatine Kinase (26-192) U/L Troponin I (0.02-0.05) ng/mL B-Natriuretic Peptide (0-100) pg/mL Total Protein 6.8 D (6.4-8.2) g/dL Albumin 3.4 (3.4-5.0) g/dL Urine Color (Yellw/Straw) Urine Clarity (Clear) Urine pH (5.0-8.5) Ur Specific Gordon (1.002-1.035) Urine Protein (Neg-Trace) mg/dL Urine Glucose (UA) (Negative) mg/dL Urine Ketones (Negative) mg/dL Urine Occult Blood (Negative) Urine Nitrate (Negative) Urine Bilirubin (Negative) Urine Urobilinogen (Less than 2) mg/dL Ur Leukocyte Esterase (Negative) Urine RBC (0-3) /hpf Urine WBC (0-5) /hpf Hyaline Casts (0-3) /lpf Urine Mucus (Occasional) /lpf Nasal Screen MRSA (PCR) (Negative) Imaging Data Radiologist's impression: Chest X-Ray 12/06/17 22:23 CONCLUSION: 1. ETT in good position. NGT beyond the GE junction. 2. Patchy bilateral lower lobe airspace disease. 3. Mild interstitial edema. Discharge Plan Discharge Disposition Patient Disposition: 30 Still Patient Discharge Condition Condition: Critical Discharge Details Diagnosis: Respiratory failure, CHF (congestive heart failure), Non-ST elevation (NSTEMI) myocardial infarction, SIRS (systemic inflammatory response syndrome) Physicians Team ED Provider: Jasmyn Kinney Primary Care Provider: Yohan Davison Attending Provider: Andreas Hadley Interventions Interventions: ED Discharge Assessment Last Done: 12/07/17 03:22 Vital Signs Last Done: 12/07/17 00:35 Status ED Status: Left Department Discharge Information Discharge Date/Time: 12/07/17 03:23
[2017-12-07] MEDS: Azithromycin Inj 500 MG in Sodium Chlor 0.9% Inj 250 ML IV.SIG SCH (01:55)
[2017-12-07] MEDS ORDERED: Chlorhexidine Gluconate 2% 1 Pack (2 Cloths) TOPICAL PRN (04:00)
[2017-12-07] MEDS: MethylPREDNISolone Sod Succinate Inj 40 MG/ML Vial IV.PUSH SCH ×4 (04:55→22:26)
[2017-12-07] MEDS: Oral Hygiene Kit OROPHARYNG SCH ×4 (04:56→23:15)
[2017-12-07] MEDS: Chlorhexidine Gluconate 2% 1 Pack (2 Cloths) TOPICAL SCH (07:14)
[2017-12-07] MEDS: Furosemide 40 MG Tablet PO SCH (09:21)
[2017-12-07] MEDS: amLODIPine 5 MG Tablet PO SCH (09:21)
[2017-12-07] MEDS: Sucralfate 1 GM Tablet PO SCH ×2 (09:22→20:06)
[2017-12-07] MEDS: Senna/Docusate Sodium 8.6/50 MG Tablet PO SCH ×2 (09:22→20:07)
[2017-12-07] MEDS: Famotidine 20 MG Tablet PO SCH (09:22)
[2017-12-07] MEDS: Chlorhexidine 0.12% Oral Kit 15 ML UDC OROPHARYNG SCH ×2 (09:23→20:07)
[2017-12-07] MEDS: guaiFENesin 600 MG ER Tablet PO SCH ×2 (09:23→20:07)
[2017-12-07] MEDS: Isosorbide Mononitrate 60 MG ER 24HR Tablet (Imdur) PO SCH (09:23)
[2017-12-07] MEDS: Famotidine PF Inj 20 MG/2 ML Vial IV.PUSH SCH ×2 (09:23→20:06)
[2017-12-07] MEDS: Ranolazine 500 MG 12HR ER Tablet PO SCH ×2 (09:24→20:07)
--- NOTE | 2017-12-07 12:31 | ECG ---
Date Performed: 12/07/2017 Time Performed: 04:38:58 PTAGE: 72 years EKG: Sinus rhythm . --- Suspect arm lead reversal - only aVF, V1-V6 analyzed --- ST junctional depression is nonspecifi c Borderline ECG PREVIOUS TRACING : 11/08/2017 15.29 Since the previous tracing, no significant change noted DOCTOR: Ben Tom Interpretating Date/Time 12/07/2017 12:30:33
--- NOTE | 2017-12-07 13:03 | P.PNCC ---
Subjective Subjective Remarks/Hospital Course: Patient is a 72-year-old female presents with short of breath. She initially arrived via EMS on the BiPAP with oxygenation of 67. She did quit smoking about 2 weeks ago. She has significant history of coronary artery disease with non-STEMI and CHF per chart documentation. In the emergency department she continued to be severely hypoxemic with severe respiratory distress and was intubated by ED attending. 12/07: This woman has a long-standing history of cardiopulmonary disease and presented again last night with another episode of severe respiratory distress associated with profound hypoxemia. She required emergency intubation and mechanical ventilation. She still requires excessive fractional inspired oxygen concentrations and noteworthy is that she still continues to smoke. She is clearly deteriorated over the past several years and has multiple comorbid conditions. At this juncture we will keep her overnight on mechanical ventilation and attempt to get some appreciation for her gas exchange over the next 12 hours. Her cardiac enzymes elevated at this time and her B natruretic peptide is greater than 550. The mainstay of therapy will be bronchodilators and diuretics during this early hospital admission. She remains critically ill. 12/08: Diuretic added for treatment of elevated B natruretic peptide and indolent heart failure. Electrolyte replacement in progress. Required to adjust oral BP medications to obtain better control. Will ask palliative care service to see regarding help with family for long-term treatment goals. Prognosis poor. Objective Vital Signs / I&O: Vital Signs 12/06/17 22:15 12/06/17 22:17 12/06/17 22:30 Temperature 98.2 F Pulse Rate 138 H Respiratory Rate 30 H 16 Blood Pressure 168/92 H Pulse Oximetry 94 L 75 L 96 12/06/17 23:00 12/06/17 23:15 12/06/17 23:40 Temperature Pulse Rate 112 H Respiratory Rate 20 20 Blood Pressure 167/99 H Pulse Oximetry 99 94 L 12/07/17 00:00 12/07/17 00:35 12/07/17 02:45 Temperature Pulse Rate 87 97 H 90 Respiratory Rate 20 20 20 Blood Pressure 138/87 149/98 H 183/96 H Pulse Oximetry 100 100 12/07/17 03:00 12/07/17 03:05 12/07/17 04:00 Temperature 99.3 F Pulse Rate 97 H 85 Respiratory Rate 20 20 20 Blood Pressure 168/108 H 147/74 H Pulse Oximetry 100 98 99 12/07/17 06:00 12/07/17 07:00 12/07/17 08:00 Temperature 99.7 F H Pulse Rate 97 H 75 77 Respiratory Rate 20 17 Blood Pressure 154/86 H 162/83 H Pulse Oximetry 99 98 12/07/17 09:00 12/07/17 09:22 12/07/17 10:00 Temperature Pulse Rate 81 81 88 Respiratory Rate 16 16 17 Blood Pressure 164/92 H 161/87 H Pulse Oximetry 98 98 99 12/07/17 11:00 Temperature Pulse Rate 89 Respiratory Rate 17 Blood Pressure 130/67 Pulse Oximetry 98 Intake & Output 12/06/17 12/07/17 12/07/17 18:59 06:59 18:59 Intake Total 650 / 650 1100 / 1100 Output Total 2150 / 2150 Balance -1500 / -1500 1100 / 1100 Weight 75.8 kg Intake: IV 650 / 650 1100 / 1100 Diprivan 1000 mg/100 ml Inj 1, 100 / 100 100 / 100 000 mg In 100 ml @ 5 MCG/KG/MIN 2.109 mls/hr IV.CONT TITRATE PRN Rx#:[id number] Azithromycin Inj 500 MG In NS 250 / 250 Inj 250 ML @ 250 mls/hr IV.SIG Q24H RICHELLE Rx#:[id number] Maxipime Inj 2,000 MG In NS Inj 100 / 100 100 ML @ 200 mls/hr IV.SIG ONCE ONE Rx#:[id number] NS Inj 1,000 ML @ Wide Open IV. 1000 / 1000 SIG BOLUS ONE Rx#:[id number] Vancomycin Inj 500 MG In NS Inj 100 / 100 100 ML @ 200 mls/hr IV.SIG ONCE ONE Rx#:[id number] Rocephin Inj 1,000 MG In NS Inj 100 / 100 100 ML @ 200 mls/hr IV.SIG Q12H RICHELLE Rx#:[id number] Output: Urine Amount (Catheter) 2149 Indwelling Urethral Catheter 2149 Other: # Bowel Movements 0 Weight On Admission 75.8 kg Result Diagrams: 12/08/17 04:26 12/08/17 04:26 Objective Remarks: Patient is a 72-year-old female presents with short of breath. She initially arrived via EMS on the BiPAP with oxygenation of 67. She did quit smoking about 2 weeks ago. She has significant history of coronary artery disease with non-STEMI and CHF per chart documentation. In the emergency department she continued to be severely hypoxemic with severe respiratory distress and was intubated by ED attending. Review of Systems unobtainable due to endotracheal tube PMFSH - History History Provided By: Medical Record - Medical History Medical History: Medical History (Last Updated 12/06/17 @ 22:34 by Abena Nair) Cholecystectomy planned (Acute) Diabetes (Acute) COPD (chronic obstructive pulmonary disease) (Acute) CAD (coronary artery disease) (Acute) Dysrhythmia, cardiac (Acute) Hypertension (Acute) Myocardial infarction (Acute) CHF (congestive heart failure) (Acute) Pneumonia - Surgical History Surgical History: Surgical History (Last Updated 12/06/17 @ 22:34 by Abena Nair) History of appendectomy (Acute) H/O cardiac catheterization (Acute) - Tobacco History Second Hand Smoke Exposure: Yes Smoking Status: Former smoker - Alcohol History How Often Do You Have a Drink Containing Alcohol: Monthly or less - Substance Use History Substance History: No History of Abuse - Travel History Recent Travel in the [place] Within the Last 8 Weeks: No Recent Travel Out of the Country Within the Last 8 Weeks: No - Immunization History Tetanus Immunization: >5 Years Hx Influenza Vaccine This Season: Yes Medications and Allergies Active Medications: Active Medications Acetaminophen (Tylenol) 650 mg PO Q6H PRN PRN Reason: PAIN 1-10 AND/OR FEVER >101F Al Hydroxide/Mg Hydroxide (Milk Of Lakesha Flores) 30 ml PO Q12H PRN PRN Reason: Mild Constipation Albuterol (Duoneb Neb (Prn)) 1 ampul NEB Q2HR NEB PRN PRN Reason: WHEEZING Albuterol (Duoneb Neb (Prn)) 1 ampul NEB Q6HR NEB RICHELLE Amlodipine Besylate (Norvasc) 5 mg PO DAILY RICHELLE Apixaban (Eliquis) 5 mg PO BID RICHELLE Aspirin (Ecotrin) 81 mg PO DAILY RICHELLE Atorvastatin Calcium (Lipitor) 10 mg PO DAILY RICHELLE Bisacodyl (Dulcolax Supp) 10 mg RECTAL DAILY PRN PRN Reason: SEVERE CONSITIPATION Chlorhexidine Gluconate (Peridex 0.12% Oral Kit) 15 ml OROPHARYNG BID@0800, 2000 RICHELLE Chlorhexidine Gluconate (Chlorhexidine 2% Cloth) 3 pack TOPICAL DAILY@0400 RICHELLE Stop: 12/12/17 03:59 Chlorhexidine Gluconate (Chlorhexidine 2% Cloth) 3 pack TOPICAL DAILY@0400 PRN PRN Reason: Extra cloth needed Stop: 12/12/17 03:59 Famotidine (Pepcid) 20 mg PO DAILY [facility] Famotidine (Pepcid Pf Inj) 20 mg IV.PUSH Q12HR RICHELLE Furosemide (Lasix) 40 mg PO DAILY [facility] Hydromorphone HCl (Dilaudid Pf Inj) 1 mg IV.PUSH Q4H PRN PRN Reason: PAIN SCALE 6 TO 10 Propofol (Diprivan 1000 Mg/100 Ml Inj) 1,000 mg in 100 mls @ 2.109 mls/hr IV.CONT TITRATE PRN; Protocol PRN Reason: Per Protocol Last Admin: 12/07/17 00:34 Dose: 5 mcg/kg/min, 2.11 mls/hr Sodium Chloride (Ns Inj) 1,000 mls @ 84 mls/hr IV.CONT .[id number] [facility] Azithromycin 500 mg/ Sodium (Chloride) 250 mls @ 250 mls/hr IV.SIG Q24H [facility] Isosorbide Mononitrate (Imdur) 60 mg PO DAILY [facility] Lactulose (Lactulose Liq) 30 ml PO DAILY PRN PRN Reason: SEVERE CONSITIPATION Metoprolol Succinate (Toprol Xl) 50 mg PO DAILY [facility] Midazolam HCl (Versed Inj) 2 mg IV.PUSH Q1H PRN PRN Reason: SEDATION Nitroglycerin (Nitrostat Sl (Override)) 0.4 mg SL Q5-15M PRN PRN Reason: Chest Pain Non-Formulary Medication (Guaifenesin [Guaifenesin]) 1,200 mg PO Q12H [facility] Non-Formulary Medication (Ranolazine [Ranexa]) 1,000 mg PO Q12H [facility] Ondansetron HCl (Zofran Inj) 4 mg IV.PUSH Q6H PRN PRN Reason: NAUSEA OR VOMITING Oxycodone/Acetaminophen (Percocet 10/325 Mg) 1 tab PO Q6H PRN PRN Reason: Acute Pain Promethazine HCl (Phenergan Supp) 25 mg RECTAL Q6H PRN PRN Reason: Nausea Senna/Docusate Sodium (Stephanie-Colace) 1 tab PO BID [facility] Sennosides (Senokot) 17.2 mg PO Q12H PRN PRN Reason: Moderate Constipation Sodium Chloride (Ns Flush) 2 ml IV.FLUSH BID [facility] Sodium Chloride (Ns Flush) 2 ml IV.FLUSH PRN PRN PRN Reason: FLUSH AFTER USING IV ACCESS Sucralfate (Carafate) 2 gm PO BID [facility] Allergies Allergy/AdvReac Type Severity Reaction Status Date / Time penicillin G Allergy Severe Anaphylaxis Verified 12/06/17 23:40 Home Medications Medication Instructions Recorded Confirmed Type amlodipine 5 mg PO DAILY 12/06/17 12/06/17 History apixaban [Eliquis] 5 mg PO BID 12/06/17 12/06/17 History aspirin [Aspirin Low Dose] 81 mg PO DAILY 12/06/17 12/06/17 History atorvastatin 10 mg PO DAILY 12/06/17 12/06/17 History famotidine [Pepcid] 20 mg PO DAILY 12/06/17 12/06/17 History furosemide [Lasix] 40 mg PO DAILY 12/06/17 12/06/17 History isosorbide mononitrate 60 mg PO DAILY 12/06/17 12/06/17 History nitroglycerin 0.4 mg SUBLINGUAL Q5-15M PRN 12/06/17 12/06/17 History ondansetron [Zofran ODT] 8 mg PO TID PRN 12/06/17 12/06/17 History sennosides [Senna Lax] 8.6 mg PO BID PRN 12/06/17 12/07/17 History guaifenesin 1,200 mg PO Q12H 12/07/17 12/07/17 History metformin 500 mg PO BID 12/07/17 12/07/17 History metoprolol succinate 50 mg PO DAILY 12/07/17 12/07/17 History morphine 60 mg PO Q8H 12/07/17 12/07/17 History oxycodone-acetaminophen [Percocet] 1 tab PO Q6H PRN 12/07/17 12/07/17 History pantoprazole 40 mg PO DAILY 12/07/17 12/07/17 History potassium chloride 20 meq PO DAILY 12/07/17 12/07/17 History promethazine [Phenergan] 25 mg MT Q6H PRN 12/07/17 12/07/17 History ranolazine [Ranexa] 1,000 mg PO Q12H 12/07/17 12/07/17 History sucralfate [Carafate] 2 g PO BID 12/07/17 12/07/17 History Results - Labs CBC & Chem 7: 12/06/17 22:45 12/06/17 22:45 Labs: Short CBC 12/06/17 Range/Units 22:45 WBC 17.8 H (4.0-11.0) th/mm3 Hgb 15.5 H (11.6-15.3) gm/dL Hct 46.8 H (35.0-46.0) % Plt Count 309 (150-450) th/mm3 BMP 12/06/17 22:45 Sodium 142 Potassium 4.6 Chloride 105 Carbon Dioxide 22.1 BUN 8 Creatinine 1.29 H Calcium 9.2 Cardiac Enzymes 12/06/17 Range/Units 22:45 Total Creatine Kinase 101 (26-192) U/L Troponin I 0.04 (0.02-0.05) ng/mL Liver Function 12/06/17 Range/Units 22:45 Total Bilirubin 0.6 (0.2-1.0) mg/dL AST 30 (15-37) U/L ALT 16 (10-53) U/L Alkaline Phosphatase 116 (45-117) U/L Albumin 3.8 (3.4-5.0) g/dL Urine 12/06/17 Range/Units 23:15 Urine Color Yellow (Yellw/Straw) Urine Clarity Clear (Clear) Urine pH 6.0 (5.0-8.5) Ur Specific [place] 1.008 (1.002-1.035) Urine Protein 30 H (Neg-Trace) mg/dL Urine Glucose (UA) 50 (Negative) mg/dL Exam Vital signs: Vital Signs 12/06/17 22:15 12/06/17 22:17 12/06/17 22:30 Temperature 98.2 F Pulse Rate 138 H Respiratory Rate 30 H 16 Blood Pressure 168/92 H Pulse Oximetry 94 L 75 L 96 12/06/17 23:00 12/06/17 23:15 12/06/17 23:40 Temperature Pulse Rate 112 H Respiratory Rate 20 20 Blood Pressure 167/99 H Pulse Oximetry 99 94 L 12/07/17 00:35 Temperature Pulse Rate 97 H Respiratory Rate 20 Blood Pressure 149/98 H Pulse Oximetry 100 Intake & Output 12/06/17 12/06/17 12/07/17 06:59 18:59 06:59 Weight 70.307 kg - Constitutional mild distress - Routine HEENT Exam Head: Present: normocephalic, atraumatic Eye: Present: PERRL ENT: Present: mucous membranes moist - Routine Neck Exam Present: supple. Absent: JVD, carotid bruit - Routine Respiratory Exam Present: patient mechanically ventilated, rhonchi, wheezes. Absent: stridor, crackles - Routine Cardiovascular Exam Present: RRR, S1, S2 - Routine Abdominal Exam Present: soft, normoactive bowel sounds - Routine Extremities Exam Absent: cyanosis, clubbing, edema - Routine Skin Exam Present: intact. Absent: cyanosis, erythema - Routine Neurological Exam Present: moving all extremities Caprini VTE Risk Assessment Caprini VTE Risk Assessment: Moderate/High Risk (score >= 2) Caprini Risk Assessment Model: Point Value = 1 Point Value = 2 Point Value = 3 Point Value = 5 Age 41-60 Minor surgery BMI > 25 kg/m2 Swollen legs Varicose veins or History of unexplained or recurrent spontaneous Oral contraceptives or hormone replacement Sepsis (< 1 month) Serious lung disease, including pneumonia (< 1 month) Abnormal pulmonary function Acute myocardial infarction Congestive heart failure (< 1 month) History of inflammatory bowel disease Medical patient at bed rest Age 61-74 Arthroscopic surgery Major open surgery (> 45 min) Laparoscopic surgery (> 45 min) Malignancy Confined to bed (> 72 hours) Immobilizing plaster cast Central venous access Age >= 75 History of VTE Family history of VTE Factor V Leiden Prothrombin [id number] Lupus anticoagulant Anticardiolipin antibodies Elevated serum homocysteine Heparin-induced thrombocytopenia Other congenital or acquired thrombophilia Stroke (< 1 month) Elective arthroplasty Hip, pelvis, or leg fracture Acute spinal cord injury (< 1 month) Prophylaxis Regimen: Total Risk Factor Score Risk Level Prophylaxis Regimen 0-1 Low Early ambulation 2 Moderate Order ONE of the following: *Sequential Compression Device (SCD) *Heparin 5000 units SQ BID 3-4 Higher Order ONE of the following medications: *Heparin 5000 units SQ TID *Enoxaparin/Lovenox 40 mg SQ daily (WT < 150 kg, CrCl > 30 mL/min) *Enoxaparin/Lovenox 30 mg SQ daily (WT < 150 kg, CrCl > 10-29 mL/min) *Enoxaparin/Lovenox 30 mg SQ BID (WT < 150 kg, CrCl > 30 mL/min) AND/OR *Sequential Compression Device (SCD) 5 or more Highest Order ONE of the following medications: *Heparin 5000 units SQ TID (Preferred with Epidurals) *Enoxaparin/Lovenox 40 mg SQ daily (WT < 150 kg, CrCl > 30 mL/min) *Enoxaparin/Lovenox 30 mg SQ daily (WT < 150 kg, CrCl > 10-29 mL/min) *Enoxaparin/Lovenox 30 mg SQ BID (WT < 150 kg, CrCl > 30 mL/min) AND *Sequential Compression Device (SCD) Assessment and Plan - Assessment and Plan Plan: Respiratory failure -COPD exacerbation -DuoNeb scheduled and as needed -IV steroids -Empiric antibiotics, narrow after culture results Hypertension -Norvasc -Metoprolol -Review renal function try to add CHAITANYA inhibitor. CHF NSTEMI -Acute on chronic CHF exacerbation -Isosorbide mononitrate -Metoprolol -Lasix -Ranexa -Series of troponins and EKGs to rule out acute coronary syndrome, looks like NSTEMI Coronary artery disease -Aspirin -Atorvastatin -Eliquis -Series of troponins and EKGs DVT GI prophylaxis -Teds SCDs -Eliquis -Pepcid Overall impression: Patient remains critically ill and continues with an unstable status of respiratory failure. Gas exchange is poor and we are unable to wean her from mechanical ventilation. She is not a candidate for coronary intervention at this time so we will try to ride her out with rate control, unloading and diuretics. She remains anticoagulated. Critical care time 45 minutes Assessment and Plan - Assessment and Plan Plan: Plan: Respiratory failure -COPD exacerbation -DuoNeb scheduled and as needed -IV steroids, taper -Empiric antibiotics Hypertension -Norvasc -Metoprolol. convert - Add hydralazine CHF, NSTEMI -Acute on chronic CHF exacerbation -Isosorbide mononitrate -Metoprolol -Lasix -Ranexa -Series of troponins and EKGs to rule out acute coronary syndrome Coronary artery disease -Aspirin -Atorvastatin -Eliquis -Series of troponins and EKGs DVT GI prophylaxis -Teds SCDs -Eliquis -Jesusd Overall impression: This elderly woman has long-term cardiovascular problems manifesting as heart failure and myocardial ischemia. Her age and associated morbidities her long-term prognosis is quite poor. We are attempting to maximize her volume status and get her extubated. We will add sliding scale insulin glucose correction and stop her antibiotics pending culture results.
--- NOTE | 2017-12-07 14:48 | P.DIET ---
Nutritional Evaluation Type of nutrition evaluation: initial Nutrition consult regarding: Tube Feeding Screening comments: Obtained ht from a previous admission. 65 inches Objective - Diagnosis Respiratory Failure, Pneumonia, Sepsis - Objective % IBW: 133 (IBW = 125#) Body Weight Used for Calculations: IBW (56.8 kg) Energy Needs - Lower Range (kCal/kg): 25 Energy Needs - Upper Range (kCal/kg): 30 Lower Limit kCal/kg (kCals): 1,420 Upper Limit kCal/kg (kCals): 1,704 Lower Limit Protein Factor (Grams per Kg): 1.0 Upper Limit Protein Factor (Grams per Kg): 1.5 Lower Protein Needs (Protein): 57 Upper Protein Needs (Protein): 85 Dietitian Reviewed in Medical Record: Curent medications, Intake & Output, Labs , Medical history, Tube feeding Diet Order: NPO Feeding - Current Tube Feeding Tube Feeding Product: Glucerna 1.5 Assessment Assessment: Pt is at high nutrition risk 2' to her need for TFing. To meet needs with Glucerna 1.5, recommend goal rate of 45 mls/hr to provide 1620 kcals, 89 gms protein and 820 mls of free water. Some additional kcals will be provided by propofol (1.1 kcal/ml). Recommendations: Glucerna 1.5 @ 45 mls/hr goal Dietitian to Monitor: Lab values, Intake & Output, Tube feeding tolerance, Weight change, Medical course
[2017-12-07] MEDS: HYDROmorphone PF Inj 2 MG/ML Vial IV.PUSH PRN (19:40)
[2017-12-08] MEDS: oxyCODONE/Acetaminophen 10/325 Tablet PO PRN (00:19)
[2017-12-08] MEDS: HYDROmorphone PF Inj 2 MG/ML Vial IV.PUSH PRN ×2 (00:20→18:25)
[2017-12-08] MEDS: Azithromycin Inj 500 MG in Sodium Chlor 0.9% Inj 250 ML IV.SIG SCH (00:20)
[2017-12-08] MEDS: Propofol 1000 mg/100 ml Inj 1,000 MG/100 ML BOTTLE IV.CONT PRN ×6 (00:21→20:36)
[2017-12-08] MEDS: Sod Chloride 0.9% Inj 1,000 ML IV.CONT SCH ×2 (01:32→14:38)
[2017-12-08] MEDS: Oral Hygiene Kit OROPHARYNG SCH ×4 (04:30→23:19)
[2017-12-08] MEDS: Chlorhexidine Gluconate 2% 1 Pack (2 Cloths) TOPICAL SCH (04:30)
[2017-12-08] MEDS: MethylPREDNISolone Sod Succinate Inj 40 MG/ML Vial IV.PUSH SCH ×4 (04:34→23:18)
[2017-12-08 05:01] LABS: Baso % (Auto) 0.1 % (0.0-2.0); Hematocrit 41.6 % (35.0-46.0); Lymph % (Auto) 7.6 % (9.0-44.0); Mean Corpuscular HGB Conc 33.7 % (32.0-36.0); Mean Corpuscular Hemoglobin 28.7 pg (27.0-34.0); Mean Corpuscular Volume 85.3 fL (80.0-100.0); Mean Platelet Volume 8.1 fL (7.0-11.0); Mono # (Auto) 0.5 th/mm3 (0.0-0.9); Mono % (Auto) 3.4 % (0.0-8.0); Neut % (Auto) 88.9 % (16.0-70.0); Platelet Count 249 th/mm3 (150-450); Red Blood Count 4.88 mil/mm3 (4.00-5.30); Red Cell Distribution Width 16.1 % (11.6-17.2); White Blood Count 13.5 th/mm3 (4.0-11.0)
[2017-12-08 05:08] LABS: Activated Partial Thrombo Time 26.6 sec (24.3-30.1); INR 1.1 Ratio; Prothrombin Time 10.9 sec (9.8-11.6)
[2017-12-08 05:32] LABS: Alanine Aminotransferase 14 U/L (10-53); Albumin 3.4 g/dL (3.4-5.0); Alkaline Phosphatase 92 U/L (45-117); Anion Gap 10 meq/L (5-15); Aspartate Aminotransferase 25 U/L (15-37); Blood Urea Nitrogen 13 mg/dL (7-18); Calcium 8.5 mg/dL (8.5-10.1); Chloride 103 meq/L (98-107); Glomerular Filtration Rate 57 mL/min (>89); Glucose,Random 258 mg/dL (74-106); Magnesium 2.3 mg/dL (1.5-2.5); Phosphorus 3.3 mg/dL (2.5-4.9); Potassium 3.4 meq/L (3.5-5.1); Sodium 140 meq/L (136-145); Total Protein 6.8 g/dL (6.4-8.2)
[2017-12-08] MEDS: amLODIPine 5 MG Tablet PO SCH (08:19)
[2017-12-08] MEDS: Chlorhexidine 0.12% Oral Kit 15 ML UDC OROPHARYNG SCH ×2 (08:20→20:09)
[2017-12-08] MEDS: Famotidine 20 MG Tablet PO SCH (08:20)
[2017-12-08] MEDS: Senna/Docusate Sodium 8.6/50 MG Tablet PO SCH ×2 (08:20→20:11)
[2017-12-08] MEDS: Furosemide 40 MG Tablet PO SCH (08:20)
[2017-12-08] MEDS: Sucralfate 1 GM Tablet PO SCH ×2 (08:20→20:09)
[2017-12-08] MEDS: Isosorbide Mononitrate 60 MG ER 24HR Tablet (Imdur) PO SCH (08:21)
[2017-12-08] MEDS: Ranolazine 500 MG 12HR ER Tablet PO SCH ×2 (08:21→20:11)
[2017-12-08] MEDS: guaiFENesin 600 MG ER Tablet PO SCH ×2 (08:21→20:10)
[2017-12-08] MEDS: Famotidine PF Inj 20 MG/2 ML Vial IV.PUSH SCH ×2 (08:21→20:11)
[2017-12-08] MEDS ORDERED: Dextrose 50% in Water 50 ML Vial IV.PUSH PRN (10:30)
[2017-12-08] MEDS ORDERED: Potassium Chlor 40 mEq Premix 40 MEQ/100 ML PIGGYBACK IV.SIG PRN ×2 (10:32)
[2017-12-08] MEDS ORDERED: Potassium Phosphate Inj 30 MMOL in Sodium Chlor 0.9% Inj 250 ML IV.SIG PRN (10:32)
[2017-12-08] MEDS ORDERED: Magnesium Sulfate Inj 4 GM in Sodium Chlor 0.9% Inj 92 ML IV.SIG PRN (10:32)
[2017-12-08] MEDS ORDERED: Potassium Phosphate 500 MG Soluble Tablet PO PRN ×2 (10:32)
[2017-12-08] MEDS ORDERED: Potassium Chlor 20 mEq Premix 20 MEQ/100 ML PIGGYBACK IV.SIG PRN (10:32)
[2017-12-08] MEDS ORDERED: Sodium Phosphate Inj 30 MMOL in Sodium Chlor 0.9% Inj 250 ML IV.SIG PRN (10:32)
[2017-12-08] MEDS ORDERED: Magnesium Oxide 400 MG Tablet PO PRN (10:32)
[2017-12-08] MEDS ORDERED: Magnesium Sulfate Inj 2 GM in Sodium Chlor 0.9% Inj 96 ML IV.SIG PRN (10:32)
[2017-12-08] MEDS: Metoprolol Tartrate 50 MG Tablet PO SCH ×2 (11:23→20:09)
[2017-12-08] MEDS: Potassium Chlor 20 mEq Premix 20 MEQ/100 ML PIGGYBACK IV.SIG PRN ×2 (11:25→13:20)
[2017-12-08] MEDS: hydrALAZINE 50 MG Tablet PO SCH ×2 (12:23→17:00)
[2017-12-08] MEDS: Insulin NovoLOG Aspart Correctional Sugar Inj SQ SCH ×3 (12:51→23:37)
--- NOTE | 2017-12-08 17:23 | ECG ---
Date Performed: 12/06/2017 Time Performed: 22:25:33 PTAGE: 72 years EKG: SUPRAVENTRICULAR TACHYCARDIA PROLONGED CORRECTED QT INTERVAL INTRAVENTRICULAR CONDUCTION DE LAY ABNORMAL ECG NO PREVIOUS TRACING DOCTOR: Colin Christian Interpretating Date/Time 12/08/2017 17:22:27
[2017-12-08] MEDS: Potassium Chloride 25 MEQ Effervescent Tablet PO PRN (23:18)
[2017-12-09] MEDS: Azithromycin Inj 500 MG in Sodium Chlor 0.9% Inj 250 ML IV.SIG SCH (00:05)
[2017-12-09] MEDS: Propofol 1000 mg/100 ml Inj 1,000 MG/100 ML BOTTLE IV.CONT PRN ×2 (00:07→05:52)
[2017-12-09] MEDS: Sod Chloride 0.9% Inj 1,000 ML IV.CONT SCH ×3 (01:23→23:30)
[2017-12-09] MEDS: Chlorhexidine Gluconate 2% 1 Pack (2 Cloths) TOPICAL SCH (04:05)
[2017-12-09] MEDS: Oral Hygiene Kit OROPHARYNG SCH ×4 (04:06→23:29)
[2017-12-09] MEDS: MethylPREDNISolone Sod Succinate Inj 40 MG/ML Vial IV.PUSH SCH ×4 (05:06→22:00)
[2017-12-09 05:48] LABS: Calcium 8.9 mg/dL (8.5-10.1); Carbon Dioxide 27.3 meq/L (21.0-32.0)
[2017-12-09] MEDS: Insulin NovoLOG Aspart Correctional Sugar Inj SQ SCH ×4 (05:48→23:30)
--- NOTE | 2017-12-09 09:01 | P.PNCC ---
Subjective Subjective Remarks/Hospital Course: Patient is a 72-year-old female presents with short of breath. She initially arrived via EMS on the BiPAP with oxygenation of 67. She did quit smoking about 2 weeks ago. She has significant history of coronary artery disease with non-STEMI and CHF per chart documentation. In the emergency department she continued to be severely hypoxemic with severe respiratory distress and was intubated by ED attending. 12/07: This woman has a long-standing history of cardiopulmonary disease and presented again last night with another episode of severe respiratory distress associated with profound hypoxemia. She required emergency intubation and mechanical ventilation. She still requires excessive fractional inspired oxygen concentrations and noteworthy is that she still continues to smoke. She is clearly deteriorated over the past several years and has multiple comorbid conditions. At this juncture we will keep her overnight on mechanical ventilation and attempt to get some appreciation for her gas exchange over the next 12 hours. Her cardiac enzymes elevated at this time and her B natruretic peptide is greater than 550. The mainstay of therapy will be bronchodilators and diuretics during this early hospital admission. She remains critically ill. 12/08: Diuretic added for treatment of elevated B natruretic peptide and indolent heart failure. Electrolyte replacement in progress. Required to adjust oral BP medications to obtain better control. Will ask palliative care service to see regarding help with family for long-term treatment goals. Prognosis poor. 12/09: With continued diuresis we will probably be able to get her extubated today. The palliative care service should be talking to the patient on Sunday about long-term care goals. Objective Vital Signs / I&O: Vital Signs 12/08/17 10:56 12/08/17 12:00 12/08/17 15:37 Temperature 98.9 F Pulse Rate 78 88 Respiratory Rate 18 22 18 Blood Pressure 105/59 L Pulse Oximetry 99 99 100 12/08/17 16:00 12/08/17 19:44 12/08/17 20:00 Temperature 98.9 F 100.2 F H Pulse Rate 92 H 100 H 96 H Respiratory Rate 18 17 18 Blood Pressure 170/95 H 143/76 H Pulse Oximetry 98 97 12/08/17 23:48 12/09/17 00:00 12/09/17 04:00 Temperature 98.9 F 99.0 F Pulse Rate 76 77 Respiratory Rate 17 23 19 Blood Pressure 135/81 159/83 H Pulse Oximetry 98 12/09/17 04:08 12/09/17 07:47 12/09/17 08:00 Temperature Pulse Rate 76 78 84 Respiratory Rate 19 19 Blood Pressure Pulse Oximetry 98 98 12/09/17 08:43 Temperature Pulse Rate Respiratory Rate Blood Pressure Pulse Oximetry 99 Intake & Output 12/08/17 12/09/17 12/09/17 18:59 06:59 18:59 Intake Total 203 / 2038 2084 / 2084 Output Total 1475 / 1475 1100 / 1100 Balance 563 / 563 984 / 984 Weight 75.7 kg Intake: IV 1600 / 1600 1650 / 1650 Diprivan 1000 mg/100 ml Inj 1, 300 / 300 300 / 300 000 mg In 100 ml @ 5 MCG/KG/MIN 2.109 mls/hr IV.CONT TITRATE PRN Rx#:[id number] NS Inj 1,000 ML @ 84 mls/hr IV. 1000 / 1000 1000 / 1000 CONT .[id number] RICHELLE Rx#:[id number] Azithromycin Inj 500 MG In NS 250 / 250 Inj 250 ML @ 250 mls/hr IV.SIG Q24H RICHELLE Rx#:[id number] KCl 20 mEq Premix Inj 20 meq In 200 / 200 100 ml @ 50 mls/hr IV.SIG Q2H PRN Rx#:[id number] Rocephin Inj 1,000 MG In NS Inj 100 / 100 100 / 100 100 ML @ 200 mls/hr IV.SIG Q12H RICHELLE Rx#:[id number] Tube Feeding 438 / 438 314 / 314 Tube Irrigant 120 / 120 Output: Urine Amount (Catheter) 1475 / 1475 1100 / 1100 Indwelling Urethral Catheter 1475 / 1475 1100 / 1100 Other: # Bowel Movements 0 0 Result Diagrams: 12/08/17 04:26 12/09/17 05:09 Objective Remarks: - Constitutional mild distress - Routine HEENT Exam Head: Present: normocephalic, atraumatic Eye: Present: PERRL ENT: Present: mucous membranes moist - Routine Neck Exam Present: supple. Orally intubated. Absent: JVD, carotid bruit - Routine Respiratory Exam Present: patient mechanically ventilated, rhonchi, wheezes. Absent:, crackles - Routine Cardiovascular Exam Present: RRR, S1, S2. JVD is present. - Routine Abdominal Exam Present: soft, normoactive bowel sounds, no guarding. - Routine Extremities Exam Absent: cyanosis, clubbing. 1+ lower extremity edema. - Routine Skin Exam Present: intact. Absent: cyanosis, erythema - Routine Neurological Exam Present: moving all extremities, nods head to questions, opens eyes to loud voice. Assessment and Plan - Assessment and Plan Plan: Plan: Respiratory failure -COPD exacerbation -DuoNeb scheduled and as needed -IV steroids, taper -Empiric antibiotics -Stronger today, we will attempt spontaneous breathing trial and aim for extubation 12/09. Hypertension -Norvasc -Metoprolol. convert - Add hydralazine CHF, NSTEMI -Acute on chronic CHF exacerbation -Isosorbide mononitrate -Metoprolol -Lasix -Ranexa -Series of troponins and EKGs to rule out acute coronary syndrome -BMP is still elevated greater than 1500, will add additional Coronary artery disease -Aspirin -Atorvastatin -Eliquis -Series of troponins and EKGs DVT GI prophylaxis -Teds SCDs -Eliquis -Pepcid Overall impression: This elderly woman has long-term cardiovascular problems manifesting as heart failure and myocardial ischemia. Her age and associated morbidities make her long-term prognosis quite poor. We are attempting to maximize her volume status and get her extubated. We will add sliding scale insulin glucose correction and stop her antibiotics pending culture results.
[2017-12-09] MEDS: Morphine Sulfate 60 MG SR Tablet PO SCH ×2 (11:09→17:31)
[2017-12-09] MEDS: Metoprolol Tartrate 50 MG Tablet PO SCH ×2 (11:10→20:03)
[2017-12-09] MEDS: Furosemide 40 MG Tablet PO SCH (11:30)
[2017-12-09] MEDS: Sucralfate 1 GM Tablet PO SCH ×2 (11:30→20:02)
[2017-12-09] MEDS: amLODIPine 5 MG Tablet PO SCH (11:31)
[2017-12-09] MEDS: hydrALAZINE 50 MG Tablet PO SCH ×3 (11:31→17:31)
[2017-12-09] MEDS: Senna/Docusate Sodium 8.6/50 MG Tablet PO SCH ×2 (11:31→20:02)
[2017-12-09] MEDS: Famotidine 20 MG Tablet PO SCH (11:31)
[2017-12-09] MEDS: Chlorhexidine 0.12% Oral Kit 15 ML UDC OROPHARYNG SCH ×2 (11:32→19:47)
[2017-12-09] MEDS: Famotidine PF Inj 20 MG/2 ML Vial IV.PUSH SCH ×2 (11:41→20:02)
[2017-12-09] MEDS: Isosorbide Mononitrate 60 MG ER 24HR Tablet (Imdur) PO SCH (12:13)
[2017-12-09] MEDS: guaiFENesin 600 MG ER Tablet PO SCH ×2 (12:13→20:02)
[2017-12-09] MEDS: Ranolazine 500 MG 12HR ER Tablet PO SCH ×2 (12:13→20:02)
[2017-12-09] MEDS: oxyCODONE/Acetaminophen 10/325 Tablet PO PRN (20:48)
[2017-12-10] MEDS: Azithromycin Inj 500 MG in Sodium Chlor 0.9% Inj 250 ML IV.SIG SCH (00:30)
[2017-12-10] MEDS: Morphine Sulfate 60 MG SR Tablet PO SCH ×3 (02:48→18:19)
[2017-12-10] MEDS: Chlorhexidine Gluconate 2% 1 Pack (2 Cloths) TOPICAL SCH (03:00)
[2017-12-10] MEDS: Oral Hygiene Kit OROPHARYNG SCH ×4 (03:01→23:50)
[2017-12-10 05:34] LABS: Alanine Aminotransferase 12 U/L (10-53); Albumin 2.8 g/dL (3.4-5.0); Alkaline Phosphatase 65 U/L (45-117); Anion Gap 7 meq/L (5-15); Aspartate Aminotransferase 25 U/L (15-37); Blood Urea Nitrogen 24 mg/dL (7-18); Calcium 8.5 mg/dL (8.5-10.1); Carbon Dioxide 28.1 meq/L (21.0-32.0); Chloride 106 meq/L (98-107); Glomerular Filtration Rate 87 mL/min (>89); Glucose,Random 168 mg/dL (74-106); Potassium 3.7 meq/L (3.5-5.1); Sodium 141 meq/L (136-145); Total Protein 5.6 g/dL (6.4-8.2)
[2017-12-10] MEDS: MethylPREDNISolone Sod Succinate Inj 40 MG/ML Vial IV.PUSH SCH ×2 (05:39→11:00)
[2017-12-10] MEDS: Insulin NovoLOG Aspart Correctional Sugar Inj SQ SCH ×3 (05:50→18:49)
[2017-12-10] MEDS: Isosorbide Mononitrate 60 MG ER 24HR Tablet (Imdur) PO SCH (08:56)
[2017-12-10] MEDS: Famotidine 20 MG Tablet PO SCH (08:56)
[2017-12-10] MEDS: guaiFENesin 600 MG ER Tablet PO SCH ×2 (08:56→20:52)
[2017-12-10] MEDS: Ranolazine 500 MG 12HR ER Tablet PO SCH ×2 (08:56→20:52)
[2017-12-10] MEDS: hydrALAZINE 50 MG Tablet PO SCH ×2 (08:56→12:48)
[2017-12-10] MEDS: Chlorhexidine 0.12% Oral Kit 15 ML UDC OROPHARYNG SCH ×2 (08:56→20:52)
[2017-12-10] MEDS: Furosemide 40 MG Tablet PO SCH (08:56)
[2017-12-10] MEDS: Metoprolol Tartrate 50 MG Tablet PO SCH (08:57)
[2017-12-10] MEDS: amLODIPine 5 MG Tablet PO SCH (08:57)
[2017-12-10] MEDS: Sucralfate 1 GM Tablet PO SCH ×2 (08:57→20:52)
[2017-12-10] MEDS: Senna/Docusate Sodium 8.6/50 MG Tablet PO SCH ×2 (08:57→20:52)
[2017-12-10] MEDS: Famotidine PF Inj 20 MG/2 ML Vial IV.PUSH SCH ×2 (08:58→20:52)
[2017-12-10] MEDS: oxyCODONE/Acetaminophen 10/325 Tablet PO PRN ×2 (09:05→23:50)
[2017-12-10] MEDS: Nitroglycerin SL (Override) 0.4 MG Tab SL PRN ×2 (09:45→10:25)
[2017-12-10] MEDS ORDERED: Morphine Inj 4 MG/ML Vial IV.PUSH PRN (10:18)
--- NOTE | 2017-12-10 10:37 | XR ---
EXAM DATE: 12/10/2017 10:35 AM EDT AGE/SEX: 72 years / Female INDICATIONS: Chest pain. CLINICAL DATA: This is the patient's subsequent encounter. Patient reports that signs and symptoms h ave been present for 4 - 6 days and indicates a pain score of 5/10. MEDICAL/SURGICAL HISTORY: . Chronic obstructive pulmonary disease. Hypertension. A-fib. Myocard ial infarction. . CABG. [place] [facility] [place]. . FINDINGS: There is cardiomegaly, aortic calcification, sternotomy wires and CABG markers noted. Linear atelecta sis at the left base. No consolidation or effusion. CONCLUSION: Left basilar atelectasis. Cardiomegaly. Electronically signed by: Song Cortes MD 12/10/2017 10:36 AM EDT
--- NOTE | 2017-12-10 11:05 | P.CONPAL ---
Consult Service: Palliative Care Requesting Physician: Eric Rueda Reason for Consult: a. To assist with evaluation and management of symptoms including: Shortness of breath, debility b. To assist medical decision maker(s) with: better understanding of current medical conditions; weighing benefits/burdens of medical treatment options; making medical treatment decisions. Primary Care Provider: Yohan Davison MD History of Present Illness History of Present Illness: is a 72-year-old female with an extensive cardiac medical history inclusive of myocardial infarction 3, coronary artery disease, CABG bypass 5 vessels, congestive heart failure, chronic obstructive pulmonary disease oxygen dependent, tobacco use, pneumonia, hypertension, hypothyroidism, diabetes mellitus, and hypercholesterolemia. Patient was brought to the emergency room on 12/07/17 via EMS with complaints of shortness of breath for a day prior to coming to the ER. Patient's O2 saturation was 67% on BiPAP at time of arrival. Patient has been hospitalized 3 times since Sep, 2017 with cardiac related issues (chest pain and atrial fibrillation with RVR) and COPD exacerbation. Her last hospitalization was in October,. ER course: * Vital signs: Temperature 99.0F pulse 84, respirations 17, BP 146/73, O2 saturation 94% on BiPAP. * EKG revealed supraventricular tachycardia prolonged corrected QT interval * Laboratory workup revealed WBC 17.8, hemoglobin 15.5, hematocrit 46.8, platelet count 309, sodium 142, potassium 4.6, BUN/creatinine 8/1.29, random glucose 257, lactic acid 3.7, calcium 9.2, AST 30, ALT 16, troponin 0 0.04, BNP 549, total protein 7.5, albumin 3.8, PT 10.9, INR 1.1, * Chest x-ray revealed patchy bilateral lower lobe airspace disease and mild interstitial edema. * Patient continued to be severely hypoxemic with severe respiratory distress and was intubated in the emergency room. NG tube placed * ABG results revealed pH 7.25, PCO2 57, PO2 72, HCO3 24, O2 saturation 89% on PRBC/AC/16/500/IT 1.0/PEEP 10 * Urinalysis negative for leukocyte esterase. * Critical care management physician Dr. Hadley consulted * Patient admitted for further evaluation and treatment under the care of critical care management. Clinical course complicated with elevated cardiac enzymes. Patient managed with bronchodilators and diuretics. Patient was extubated on 12/09/17. X-ray today revealed left basilar atelectasis and cardiomegaly. Palliative care consulted to assist with symptom management and establishing long-term care goals. Patient seen and examined in the room on [facility]. Patient is in bed, awake, alert, oriented to self, place and situation. Patient currently denies pain. Patient stated that she had chest pain 2 this morning and was resolved with nitro paste 2 doses. Introduced palliative care`s care role regarding symptom management as well as establishing goals of care. Obtained psychosocial, past medical history and events leading to this hospitalization. Patient understands her medical condition and she appears to be capable of weighing benefits and disadvantages of treatments. Patient stated that she has an extensive family history of heart disease and her parents and siblings (brother and sister) from heart disease. She states that she is now in the 70s and most of them around that age group. Patient appears realistic regarding her medical condition though she mentions that she is afraid of dying and at this time she still wants anything that can possibly be done to keep her alive. She mentioned that she is hoping to see a encoding clerk and per her last visit she was told that she may need another ablation. Patient has never completed advanced directives. Discussed what advanced directives were and at this time patient is willing to complete & sign a healthcare surrogate form. Patient designating her Sourav Almanzar as her health care surrogate (HCS) and her friend Idalmis cardenas Trisha as her alternate HCS. Addressed CODE STATUS, discussed CPR benefits, limitations and risks given patient's multiple comorbidities. Patient elected full code. She would want to be resuscitated and intubated. Discussed further regarding possibility of ending up on a tracheostomy and having a PEG tube in the event that she is not able to be medically extubated. Patient would want to continue with all those procedures as long as she is not in a vegetative state. Encouraged patient to continue discussing her wishes with her friend as well as . After discussing at length progression of her cardiac issues, patient mentioned that she probably needs to gently discuss her wishes with her . Patient appreciative of palliative care visit. Function/Cognitive Trajectory: Patient has deteriorated over the past several years. Patient has been hospitalized 3 times since Sep, 2017. Her last hospitalization was in October,. Patient had paroxysmal atrial fibrillation with rapid ventricular response and was treated with ablation Review of Systems Constitutional: Denies fever(s), Denies weight loss Eyes: Denies blurry vision, Denies change in vision, Denies pain Ears, Nose, Mouth, and Throat: Denies dizziness, Denies headache(s), Denies hearing loss, Denies nasal congestion, Denies nasal discharge, Denies poor balance Cardiovascular: Reports chest pain, Reports chest pain at rest, Reports foot swelling, Reports irregular heart rhythm, Reports shortness of breath, Denies leg swelling Respiratory: Reports cough, Reports shortness of breath, Denies coughing up blood Gastrointestinal: Denies abdominal pain, Denies cramping, Denies difficulty swallowing, Denies loose stools, Denies vomiting Genitourinary: Denies blood in urine, Denies urinary incontinence Musculoskeletal: Denies abnormal walking, Denies joint swelling, Denies neck pain Skin/Breast: Reports unusual bruising, Denies change in skin color, Denies wounds Neurologic: Denies abnormal speech, Denies behavioral changes, Denies frequent falls, Denies memory loss, Denies tingling/numbness/burning sensations Psychiatric: Denies change in appetite, Denies confusion, Denies depression, Denies memory loss Endocrine: Reports rapid, pounding, or irregular heartbeat, Denies excessive sweating Hematologic/Lymphatic: Reports easy bruising PMFSH - History History Provided By: Patient, Medical Record - Medical History Medical History: Medical History (Last Updated 12/10/17 @ 10:36 by Gayathri Bernal) Diabetes (Acute) COPD (chronic obstructive pulmonary disease) (Acute) CAD (coronary artery disease) (Acute) Dysrhythmia, cardiac (Acute) Hypertension (Acute) CHF (congestive heart failure) (Acute) Hiatal hernia Pneumonia Sleep apnea Myocardial infarction (Resolved) - Surgical History Surgical History: Surgical History (Last Updated 12/10/17 @ 10:41 by Gayathri Bernal) History of appendectomy (Acute) H/O cardiac catheterization (Acute) History of dental surgery History of thyroid surgery Hx of CABG Hx of cholecystectomy - Family History Family History: Family History (Last Updated 12/10/17 @ 13:18 by Gayathri Bernal) Mother Heart disease Father Heart disease Brother Heart disease Sister Heart disease Stroke - Tobacco History Second Hand Smoke Exposure: Yes Tobacco Use In Past 30 Days: Yes (Quit 2 weeks ago) Smoking Status: Former smoker Packs Per Day: 1 (Since age 15) - Alcohol History How Often Do You Have a Drink Containing Alcohol: Monthly or less - Substance Use History Substance History: No History of Abuse - Travel History Recent Travel in the [place] Within the Last 8 Weeks: No Recent Travel Out of the Country Within the Last 8 Weeks: No - Immunization History Tetanus Immunization: >5 Years Hx Influenza Vaccine This Season: Yes Medications and Allergies Active Medications: Active Medications Acetaminophen (Tylenol) 650 mg PO Q6H PRN PRN Reason: FEVER >101F Last Admin: 12/07/17 23:29 Dose: 650 mg Al Hydroxide/Mg Hydroxide (Milk Of Lakesha Flores) 30 ml PO Q12H PRN PRN Reason: Mild Constipation Albuterol (Duoneb Neb (Prn)) 1 ampul NEB Q2HR NEB PRN PRN Reason: WHEEZING Albuterol (Duoneb Neb (Indu)) 1 ampul NEB Q6HR NEB [facility] Last Admin: 12/10/17 09:31 Dose: 1 ampul Amlodipine Besylate (Norvasc) 5 mg PO DAILY [facility] Last Admin: 12/10/17 08:57 Dose: Not Given Apixaban (Eliquis) 5 mg PO BID [facility] Last Admin: 12/10/17 08:57 Dose: 5 mg Aspirin (Ecotrin) 81 mg PO DAILY [facility] Last Admin: 12/10/17 08:56 Dose: 81 mg Atorvastatin Calcium (Lipitor) 10 mg PO DAILY [facility] Last Admin: 12/10/17 08:57 Dose: 10 mg Bisacodyl (Dulcolax Supp) 10 mg RECTAL DAILY PRN PRN Reason: SEVERE CONSITIPATION Chlorhexidine Gluconate (Peridex 0.12% Oral Kit) 15 ml OROPHARYNG BID@0800, 2000 [facility] Last Admin: 12/10/17 08:56 Dose: Not Given Chlorhexidine Gluconate (Chlorhexidine 2% Cloth) 3 pack TOPICAL DAILY@0400 [facility] Stop: 12/12/17 03:59 Last Admin: 12/10/17 03:00 Dose: 3 pack Chlorhexidine Gluconate (Chlorhexidine 2% Cloth) 3 pack TOPICAL DAILY@0400 PRN PRN Reason: Extra cloth needed Stop: 12/12/17 03:59 Clonidine HCl (Catapres) 0.2 mg PO Q6H PRN PRN Reason: SBP>160, DBP>90 Last Admin: 12/08/17 09:16 Dose: 0.2 mg Dextrose (D50w Vial) 50 ml IV.PUSH UNSCH PRN PRN Reason: PER HYPOGLYCEMIA PROTOCOL Enalaprilat (Vasotec Inj) 2.5 mg IV.PUSH Q6H PRN PRN Reason: SBP>160, DBP>90 Last Admin: 12/08/17 16:23 Dose: 2.5 mg Famotidine (Pepcid) 20 mg PO DAILY [facility] Last Admin: 12/10/17 08:56 Dose: 20 mg Famotidine (Pepcid Pf Inj) 20 mg IV.PUSH Q12HR [facility] Last Admin: 12/10/17 08:58 Dose: Not Given Furosemide (Lasix) 40 mg PO DAILY [facility] Last Admin: 12/10/17 08:56 Dose: 40 mg Glucagon (Glucagon Inj) 1 mg OTHER UNSCH PRN PRN Reason: for Hypoglycemia Protocol Guaifenesin (Mucinex Er) 1,200 mg PO BID [facility] Last Admin: 12/10/17 08:56 Dose: 1,200 mg Hydralazine HCl (Apresoline) 50 mg PO TID [facility] Last Admin: 12/10/17 08:56 Dose: Not Given Hydromorphone HCl (Dilaudid Pf Inj) 1 mg IV.PUSH Q4H PRN PRN Reason: PAIN SCALE 6 TO 10 Last Admin: 12/08/17 18:25 Dose: 1 mg Propofol (Diprivan 1000 Mg/100 Ml Inj) 1,000 mg in 100 mls @ 2.109 mls/hr IV.CONT TITRATE PRN; Protocol PRN Reason: Per Protocol Last Admin: 12/09/17 05:52 Dose: 40 mcg/kg/min, 16.87 mls/hr Sodium Chloride (Ns Inj) 1,000 mls @ 84 mls/hr IV.CONT .[id number] [facility] Last Admin: 12/09/17 23:30 Dose: Not Given Azithromycin 500 mg/ Sodium (Chloride) 250 mls @ 250 mls/hr IV.SIG Q24H [facility] Last Admin: 12/10/17 00:30 Dose: 250 mls/hr Ceftriaxone Sodium 1,000 mg/ (Sodium Chloride) 100 mls @ 200 mls/hr IV.SIG Q12H [facility] Last Admin: 12/10/17 00:00 Dose: 200 mls/hr Magnesium Sulfate Inj 4 gm/ (Sodium Chloride) 100 mls @ 50 mls/hr IV.SIG UNSCH PRN PRN Reason: For Magnesium 0.9 - 1.1 mg/dL Magnesium Sulfate Inj 2 gm/ (Sodium Chloride) 100 mls @ 50 mls/hr IV.SIG UNSCH PRN PRN Reason: For Magnesium 1.2 - 1.6 mg/dL Potassium Chloride (Kcl 40 Meq Premix Inj) 40 meq in 100 mls @ 50 mls/hr IV.SIG Q2H PRN PRN Reason: For Potassium 2.8 - 3.2 mEq/L Potassium Chloride (Kcl 20 Meq Premix Inj) 20 meq in 100 mls @ 50 mls/hr IV.SIG Q2H PRN PRN Reason: For Potassium 3.3 - 3.5 mEq/L Potassium Chloride (Kcl 40 Meq Premix Inj) 40 meq in 100 mls @ 25 mls/hr IV.SIG UNSCH PRN PRN Reason: For Potassium 3.3 - 3.5 mEq/L Potassium Chloride (Kcl 20 Meq Premix Inj) 20 meq in 100 mls @ 50 mls/hr IV.SIG Q2H PRN PRN Reason: For Potassium 2.8 - 3.2 mEq/L Last Infusion: 12/08/17 15:20 Dose: Infused Potassium Phosphate 30 mmol/ (Sodium Chloride) 260 mls @ 42 mls/hr IV.SIG UNSCH PRN PRN Reason: SEE LABEL COMMENTS Sodium Phosphate 30 mmol/ (Sodium Chloride) 260 mls @ 42 mls/hr IV.SIG UNSCH PRN PRN Reason: For Phosphorus < 2.5 mg/dL Norepinephrine Bitartrate (Levophed-Dextrose 4 Mg/250 Ml Drip) 4 mg in 250 mls @ 7.5 mls/hr IV.SIG TITRATE PRN; Protocol PRN Reason: Per Protocol Last Titration: 12/10/17 06:00 Dose: 0 mcg/min, 0 mls/hr Insulin Aspart (Novolog Insulin Correctional Sugar Inj) 0 unit SQ Q6HR INDU; Protocol Last Admin: 12/10/17 05:50 Dose: 2 unit Isosorbide Mononitrate (Imdur) 60 mg PO DAILY [facility] Last Admin: 12/10/17 08:56 Dose: 60 mg Lactulose (Lactulose Liq) 30 ml PO DAILY PRN PRN Reason: SEVERE CONSITIPATION Magnesium Oxide (Mag-Ox) 800 mg PO UNSCH PRN PRN Reason: For Magnesium 1.2 - 1.6 mg/dL Methylprednisolone Sodium Succinate (Solumedrol Inj) 40 mg IV.PUSH Q6H [facility] Last Admin: 12/10/17 05:39 Dose: 40 mg Metoprolol Tartrate (Lopressor) 50 mg PO BID [facility] Last Admin: 12/10/17 08:57 Dose: Not Given Midazolam HCl (Versed Inj) 2 mg IV.PUSH Q1H PRN PRN Reason: SEDATION Morphine Sulfate (Oramorph Sr) 60 mg PO Q8H [facility] Last Admin: 12/10/17 02:48 Dose: 60 mg Nitroglycerin (Nitrostat Sl (Override)) 0.4 mg SL Q5M PRN PRN Reason: Chest Pain Ondansetron HCl (Zofran Odt) 4 mg PO Q6H PRN PRN Reason: NAUSEA OR VOMITING Oxycodone/Acetaminophen (Percocet 10/325 Mg) 1 tab PO Q6H PRN PRN Reason: Acute Pain 1-5 Last Admin: 12/10/17 09:05 Dose: 1 tab Potassium Bicarb/Potassium Chloride (K-Lyte Cl Eff) 50 meq PO UNSCH PRN PRN Reason: For Potassium 3.3 - 3.5 mEq/L Last Admin: 12/08/17 23:18 Dose: 50 meq Potassium Phosphate (K-Phos Original) 2,000 mg PO Q4H PRN PRN Reason: Phosphorus Less Than 2.5 mg/dL Potassium Phosphate (K-Phos Original) 2,000 mg PO UNSCH PRN PRN Reason: SEE LABEL COMMENTS Promethazine HCl (Phenergan Supp) 25 mg RECTAL Q6H PRN PRN Reason: Nausea Ranolazine (Ranexa) 1,000 mg PO BID [facility] Last Admin: 12/10/17 08:56 Dose: 1,000 mg Senna/Docusate Sodium (Stephanie-Colace) 1 tab PO BID [facility] Last Admin: 12/10/17 08:57 Dose: Not Given Sennosides (Senokot) 17.2 mg PO Q12H PRN PRN Reason: Moderate Constipation Sodium Chloride (Ns Flush) 2 ml IV.FLUSH BID [facility] Last Admin: 12/10/17 08:57 Dose: 2 ml Sodium Chloride (Ns Flush) 2 ml IV.FLUSH PRN PRN PRN Reason: FLUSH AFTER USING IV ACCESS Sucralfate (Carafate) 2 gm PO BID [facility] Last Admin: 12/10/17 08:57 Dose: 2 gm Terbutaline Sulfate (Brethine Inj) 1 mg SQ UNSCH PRN PRN Reason: For Extravasation Allergies Allergy/AdvReac Type Severity Reaction Status Date / Time penicillin G Allergy Severe Anaphylaxis Verified 12/06/17 23:40 Home Medications Medication Instructions Recorded Confirmed Type amlodipine 5 mg PO DAILY 12/06/17 12/06/17 History apixaban [Eliquis] 5 mg PO BID 12/06/17 12/06/17 History aspirin [Aspirin Low Dose] 81 mg PO DAILY 12/06/17 12/06/17 History atorvastatin 10 mg PO DAILY 12/06/17 12/06/17 History famotidine [Pepcid] 20 mg PO DAILY 12/06/17 12/06/17 History furosemide [Lasix] 40 mg PO DAILY 12/06/17 12/06/17 History isosorbide mononitrate 60 mg PO DAILY 12/06/17 12/06/17 History nitroglycerin 0.4 mg SUBLINGUAL Q5-15M PRN 12/06/17 12/06/17 History ondansetron [Zofran ODT] 8 mg PO TID PRN 12/06/17 12/06/17 History sennosides [Senna Lax] 8.6 mg PO BID PRN 12/06/17 12/07/17 History guaifenesin 1,200 mg PO Q12H 12/07/17 12/07/17 History metformin 500 mg PO BID 12/07/17 12/07/17 History metoprolol succinate 50 mg PO DAILY 12/07/17 12/07/17 History morphine 60 mg PO Q8H 12/07/17 12/07/17 History oxycodone-acetaminophen [Percocet] 1 tab PO Q6H PRN 12/07/17 12/07/17 History pantoprazole 40 mg PO DAILY 12/07/17 12/07/17 History potassium chloride 20 meq PO DAILY 12/07/17 12/07/17 History promethazine [Phenergan] 25 mg ND Q6H PRN 12/07/17 12/07/17 History ranolazine [Ranexa] 1,000 mg PO Q12H 12/07/17 12/07/17 History sucralfate [Carafate] 2 g PO BID 12/07/17 12/07/17 History Advance Directives Living Will: No Healthcare Surrogate: Yes (Completed & signed 12/10/2017) Health Care Surrogate Name and Number: Yohan Benjamin [phone] alt: [email or web address] jean [phone] Power of Insole Lip Turner: No Today's verbally stated goals: Patient`s hopeful to get better and be discharged home. Awaiting cardiology consult. Ethical and Legal Issues: None identified at this time. Physical Exam Vital Signs: Vital Signs - 24 hr 12/09/17 12:00 12/09/17 15:16 12/09/17 16:00 Temperature 98.7 F 98.7 F Pulse Rate 78 66 66 Respiratory Rate 26 H 20 29 H Blood Pressure 103/76 85/54 L Pulse Oximetry 12/09/17 18:04 12/09/17 19:56 12/09/17 20:00 Temperature 98.2 F Pulse Rate 74 72 Respiratory Rate 22 20 27 H Blood Pressure 98/54 L Pulse Oximetry 95 95 12/09/17 21:56 12/10/17 00:00 12/10/17 03:19 Temperature 98.8 F Pulse Rate 72 64 Respiratory Rate 16 16 15 Blood Pressure 101/59 L Pulse Oximetry 95 12/10/17 04:00 12/10/17 08:00 12/10/17 09:31 Temperature 98.4 F 98.4 F Pulse Rate 66 67 73 Respiratory Rate 11 L 10 L 17 Blood Pressure 105/58 L 117/56 L Pulse Oximetry 95 95 94 L I&O: Intake & Output 12/08/17 12/09/17 12/10/17 12/11/17 06:59 06:59 06:59 06:59 Intake Total 4547 / 4547 4122 / 4122 460 / 460 Output Total 4350 / 4350 2575 / 2575 1650 / 1650 Balance 197 / 197 1547 / 1547 -1190 / -1190 Weight 75.9 kg 75.7 kg 75 kg Physical Exam: CONSTITUTIONAL/GENERAL: This is an adequately nourished patient, in no apparent distress. TUBES/LINES/DRAINS: Nasal cannula, PIV,Pure wick female external catheter SKIN: No jaundice, rashes, or lesions. Ecchymoses on upper extremities. No wounds seen anteriorly. Normothermic HEAD: Atraumatic. Normocephalic. EYES: Pupils equal and round and reactive. Extraocular motions intact. No scleral icterus. No injection or drainage. Fundi not examined. ENT: Hearing grossly normal. Nose without bleeding or purulent drainage. Moist oral mucosa NECK: Trachea midline. Supple, nontender. CARDIOVASCULAR: Regular rate and rhythm without murmurs, gallops, or rubs. No JVD. Peripheral pulses symmetric. RESPIRATORY/CHEST: Symmetric, unlabored respirations. Clear to auscultation. Breath sounds equal bilaterally. No wheezes, rales, or rhonchi. GASTROINTESTINAL: Abdomen soft, non-tender, nondistended. No guarding. Bowel sounds present. GENITOURINARY: Without palpable bladder distension. Pure wick female external catheter MUSCULOSKELETAL: Extremities without clubbing, cyanosis, or edema. No joint tenderness or effusion noted. No calf tenderness. No mottling or clubbing. NEUROLOGICAL: Awake and alert. Motor and sensory grossly within normal limits. Follows commands. Moves all extremities. PSYCHIATRIC: No obvious anxiety/depression. no apparent hallucinations or other psychotic thought process. Diagnostic Tests Laboratory: Laboratory Results - last 72 hr 12/07/17 12/07/17 12/08/17 03:05 10:35 00:57 WBC RBC Hgb Hct MCV MCH MCHC RDW Plt Count MPV Neut % (Auto) Lymph % (Auto) [place] % (Auto) Eos % (Auto) Baso % (Auto) Neut # (Auto) Lymph # (Auto) [place] # (Auto) Eos # (Auto) Baso # (Auto) WBC Differential Differential Comment PT INR APTT Sodium Potassium Chloride Carbon Dioxide Anion Gap BUN Creatinine Estimated GFR POC Glucose 219 H Random Glucose Calcium Phosphorus Magnesium Total Bilirubin AST ALT Alkaline Phosphatase Troponin I 3.91 H* D B-Natriuretic Peptide Total Protein Albumin Nasal Screen MRSA (PCR) Not detected 12/08/17 12/08/17 12/08/17 04:26 04:26 04:26 WBC 13.5 H RBC 4.88 Hgb 14.0 Hct 41.6 MCV 85.3 D MCH 28.7 MCHC 33.7 RDW 16.1 Plt Count 249 MPV 8.1 Neut % (Auto) 88.9 H Lymph % (Auto) 7.[address] [place] % (Auto) 3.4 Eos % (Auto) 0.0 Baso % (Auto) 0.1 Neut # (Auto) 12.0 H Lymph # (Auto) 1.0 [place] # (Auto) 0.5 Eos # (Auto) 0.0 Baso # (Auto) 0.0 WBC Differential . Differential Comment Auto diff final PT 10.9 INR 1.1 APTT 26.6 Sodium 140 Potassium 3.4 L D Chloride 103 Carbon Dioxide 27.0 Anion Gap 10 BUN 13 Creatinine 0.96 Estimated GFR 57 L POC Glucose Random Glucose 258 H Calcium 8.5 Phosphorus 3.3 Magnesium 2.3 Total Bilirubin 0.5 AST 25 ALT 14 Alkaline Phosphatase 92 Troponin I B-Natriuretic Peptide Total Protein 6.8 D Albumin 3.4 Nasal Screen MRSA (PCR) 12/08/17 12/08/17 12/08/17 12:29 17:12 20:40 WBC RBC Hgb Hct MCV MCH MCHC RDW Plt Count MPV Neut % (Auto) Lymph % (Auto) [place] % (Auto) Eos % (Auto) Baso % (Auto) Neut # (Auto) Lymph # (Auto) [place] # (Auto) Eos # (Auto) Baso # (Auto) WBC Differential Differential Comment PT INR APTT Sodium Potassium 3.4 L Chloride Carbon Dioxide Anion Gap BUN Creatinine Estimated GFR POC Glucose 247 H 227 H Random Glucose Calcium Phosphorus Magnesium Total Bilirubin AST ALT Alkaline Phosphatase Troponin I B-Natriuretic Peptide Total Protein Albumin Nasal Screen MRSA (PCR) 12/08/17 12/09/17 12/09/17 23:27 05:09 05:09 WBC RBC Hgb Hct MCV MCH MCHC RDW Plt Count MPV Neut % (Auto) Lymph % (Auto) [place] % (Auto) Eos % (Auto) Baso % (Auto) Neut # (Auto) Lymph # (Auto) [place] # (Auto) Eos # (Auto) Baso # (Auto) WBC Differential Differential Comment PT INR APTT Sodium 140 Potassium 4.0 Chloride 107 Carbon Dioxide 27.3 Anion Gap 6 BUN 19 H Creatinine 0.76 Estimated GFR 75 L POC Glucose 221 H Random Glucose 229 H Calcium 8.9 Phosphorus Magnesium Total Bilirubin AST ALT Alkaline Phosphatase Troponin I B-Natriuretic Peptide 1532 H Total Protein Albumin Nasal Screen MRSA (PCR) 12/09/17 12/09/17 12/09/17 05:37 11:46 17:39 WBC RBC Hgb Hct MCV MCH MCHC RDW Plt Count MPV Neut % (Auto) Lymph % (Auto) [place] % (Auto) Eos % (Auto) Baso % (Auto) Neut # (Auto) Lymph # (Auto) [place] # (Auto) Eos # (Auto) Baso # (Auto) WBC Differential Differential Comment PT INR APTT Sodium Potassium Chloride Carbon Dioxide Anion Gap BUN Creatinine Estimated GFR POC Glucose 211 H 192 H 242 H Random Glucose Calcium Phosphorus Magnesium Total Bilirubin AST ALT Alkaline Phosphatase Troponin I B-Natriuretic Peptide Total Protein Albumin Nasal Screen MRSA (PCR) 12/09/17 12/10/17 12/10/17 23:22 04:52 04:52 WBC RBC Hgb Hct MCV MCH MCHC RDW Plt Count MPV Neut % (Auto) Lymph % (Auto) [place] % (Auto) Eos % (Auto) Baso % (Auto) Neut # (Auto) Lymph # (Auto) [place] # (Auto) Eos # (Auto) Baso # (Auto) WBC Differential Differential Comment PT INR APTT Sodium 141 Potassium 3.7 Chloride 106 Carbon Dioxide 28.1 Anion Gap 7 BUN 24 H Creatinine 0.67 Estimated GFR 87 L POC Glucose 280 H Random Glucose 168 H Calcium 8.5 Phosphorus Magnesium Total Bilirubin 0.5 AST 25 ALT 12 Alkaline Phosphatase 65 Troponin I B-Natriuretic Peptide 889 H Total Protein 5.6 L D Albumin 2.8 L Nasal Screen MRSA (PCR) 12/10/17 05:44 WBC RBC Hgb Hct MCV MCH MCHC RDW Plt Count MPV Neut % (Auto) Lymph % (Auto) [place] % (Auto) Eos % (Auto) Baso % (Auto) Neut # (Auto) Lymph # (Auto) [place] # (Auto) Eos # (Auto) Baso # (Auto) WBC Differential Differential Comment PT INR APTT Sodium Potassium Chloride Carbon Dioxide Anion Gap BUN Creatinine Estimated GFR POC Glucose 169 H Random Glucose Calcium Phosphorus Magnesium Total Bilirubin AST ALT Alkaline Phosphatase Troponin I B-Natriuretic Peptide Total Protein Albumin Nasal Screen MRSA (PCR) Result Diagrams: 12/14/17 06:49 12/14/17 06:49 Microbiology: Microbiology 12/07/17 02:30 Aerobic Blood Culture - Preliminary Blood - Peripheral No growth in 2 days Anaerobic Blood Culture - Preliminary No growth in 2 days 12/07/17 02:25 Aerobic Blood Culture - Preliminary Blood - Peripheral No growth in 2 days Anaerobic Blood Culture - Preliminary No growth in 2 days Imaging: Chest X-Ray 12/06/17 22:23 CONCLUSION: 1. ETT in good position. NGT beyond the GE junction. 2. Patchy bilateral lower lobe airspace disease. 3. Mild interstitial edema. Procedures: 12/06/17-endotracheal intubation 12/09/17-medically extubated Patient/Family Conference Family Conference Location: Bedside Issues Discussed: * Palliative care role, purpose, approach * Additional medical, psychosocial, and spiritual history * Patients general health, functional status, and cognitive changes in the months leading up to the current hospitalization * Patient/family understanding of the current medical problems * Patient/family understanding of prognosis * Patients goals of care as best understood from advance directives and/or conversations and/or values * Current medical treatment options and benefits/burdens of those options * Likely scenarios comparing ongoing aggressive care with a transition to comfort measures only * Questions answered to the best of my ability * Palliative care contact information provided Assessment and Plan - Disease Oriented Problem List (1) Respiratory failure (2) Non-ST elevation (NSTEMI) myocardial infarction (3) CHF exacerbation (4) CAD (coronary artery disease) (5) Hypertension - Symptom Scale (1) Shortness of breath 0-10 Scale: Unable to quantify Comment: History of CHF and COPD. (2) Debility 0-10 Scale: Unable to quantify Comment: Progressive. Multiple hospitalizations. Pertinent Non-Medical Issues: Psychosocial: Patient was born and raised in [place]. She moved to [place] 32 years ago. 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 Patient has been twice and she has been for 26 years to her current Yohan Benjamin. Patient has 2 adult children, a daughter Malorie Vizcaino who resides in [place] and son Binh Espana who lives locally. Patient`s son has had traumatic brain injury. Spiritual:Patient is Confucianist- declined principal architectural firm or foundry molder visits. Legal:Complted and signed [facility] form today 12/10/17 Ethical issues impacting care: None identified at this time Important Contacts: Spouse-[facility]- Apollo Benjamin [phone] / [phone] Friend-[facility]- Trisha Gorman- [phone] Prognosis: is a 72-year-old female with an extensive cardiac medical history inclusive of myocardial infarction 3, coronary artery disease, CABG bypass 5 vessels, congestive heart failure, chronic obstructive pulmonary disease oxygen dependent, tobacco use, pneumonia, hypertension, hypothyroidism, diabetes mellitus, and hypercholesterolemia. Patient was brought to the emergency room on 12/07/17 via EMS with complaints of shortness of breath for a day prior to coming to the ER. Patient's O2 saturation was 67% on BiPAP at time of arrival. Clinical course complicated with shortness of breath requiring intubation, elevated cardiac enzymes. Given patient's ongoing multiple comorbidities, patient remains at high risk for further deterioration and decline. Code Status: Full Code Plan: PLAN: Legal decision maker: Patient is currently able to participate in making his own medical decisions. In the event that she is not capacitated she designated he Sourav Almanzar as a healthcare surrogate and dear friend Trisha Cardenas is here alternate healthcare surrogate. Goals: Aggressive-Patient appears realistic regarding her medical condition though she mentions that she is afraid of dying and at this time she still wants anything that can possibly be done to keep her alive. She mentioned that she is hoping to see a encoding clerk and per her last outpatient visit she was told that she may need another ablation. Addressed CODE STATUS, discussed CPR benefits, limitations and risks given patient's multiple comorbidities. Patient elected full code. She would want to be resuscitated and intubated. Discussed further regarding possibility of ending up on a tracheostomy and having a PEG tube in the event that she is not able to be medically extubated. Patient would want to continue with all those procedures as long as she is not in a vegetative state. CODE STATUS: Full code SYMPTOMS: * Shortness of breath: Patient has history of CHF and COPD. Came in complaining of shortness of breath. Patient was intubated for 4 days. Patient was extubated 12/10/17 to O2 2 L nasal cannula. Patient managed with diuretics and bronchodilators. Currently denies shortness of breath. O2 saturation in the mid 90s. No recommendations at this time. * Debility: Progressive. Patient has an extensive cardiac history and COPD on home oxygen prn per patient. She has had 3 hospitalizations for cardiac related issues and COPD exacerbation. With patient's multiple comorbidities she will most likely continue to have complications due to his extensive cardiac history and COPD. Recommending physical therapy consult since goals are aggressive. Palliative care will continue to follow the patient during hospital course as condition evolves, to assist patient/decision-maker with understanding of their medical conditions, weighing benefits/burdens of treatment options, for clarification of goals of treatment. Additionally will assist with any symptoms of palliative concern Appreciation Thank you for the opportunity to participate in the care of Olive Small. Attestation Attestation: To help prompt me to consider important information that might be impacting today's encounter and assessment, information from prior notes written by myself or my colleagues may have been "brought forward" into today's note. My signature on this note, however, is an attestation that I personally performed the exam, history, and/or decision-making noted today, and, unless otherwise indicated, the interactions with patient, family, and staff as well as the review of records all occurred today. I also attest that the listed assessment and stated plan reflect my best clinical judgment today based on the combination of historical information, prior notes, and today's exam/ interactions. When time spent is documented, it refers only to time spent today by the signer, or if indicated, combined time spent today by collaborating physician/nurse practitioner.
[2017-12-10] MEDS: Sod Chloride 0.9% Inj 1,000 ML IV.CONT SCH ×3 (11:54→23:52)
--- NOTE | 2017-12-10 13:49 | P.PNIM ---
Subjective Interval history: The patient said that her chest pain was getting better. She said that her breathing was well controlled at this time. She would like to get up out of bed. She would like to use a bedside commode. Discussed with nursing. Physical Exam Vital signs: Vital Signs 12/09/17 15:16 12/09/17 16:00 12/09/17 18:04 Temperature 98.7 F Pulse Rate 66 66 Respiratory Rate 20 29 H 22 Blood Pressure 85/54 L Pulse Oximetry 12/09/17 19:56 12/09/17 20:00 12/09/17 21:56 Temperature 98.2 F Pulse Rate 74 72 Respiratory Rate 20 27 H 16 Blood Pressure 98/54 L Pulse Oximetry 95 95 12/10/17 00:00 12/10/17 03:19 12/10/17 04:00 Temperature 98.8 F 98.4 F Pulse Rate 72 64 66 Respiratory Rate 16 15 11 L Blood Pressure 101/59 L 105/58 L Pulse Oximetry 95 95 12/10/17 08:00 12/10/17 09:31 12/10/17 10:23 Temperature 98.4 F Pulse Rate 67 73 Respiratory Rate 10 L 17 18 Blood Pressure 117/56 L Pulse Oximetry 95 94 L 12/10/17 10:24 12/10/17 10:54 12/10/17 11:54 Temperature Pulse Rate Respiratory Rate 17 18 18 Blood Pressure Pulse Oximetry 12/10/17 12:00 Temperature 98.6 F Pulse Rate 69 Respiratory Rate 20 Blood Pressure 119/72 Pulse Oximetry 96 Intake & Output 12/09/17 12/10/17 12/10/17 18:59 06:59 18:59 Intake Total 100 / 100 460 / 460 Output Total 1500 / 1500 150 / 150 Balance -1400 / -1400 310 / 310 Weight 75 kg Intake: IV 100 / 100 100 / 100 Rocephin Inj 1,000 MG In NS Inj 100 / 100 100 / 100 100 ML @ 200 mls/hr IV.SIG Q12H RICHELLE Rx#:[id number] Oral 360 / 360 Output: Urine 150 / 150 Urine Amount (Catheter) 1500 / 1500 Female External 1100 / 1100 Indwelling Urethral Catheter 400 / 400 Other: # Voids 3 Date of Last Bowel Movement 12/09/17 12/09/17 12/09/17 # Bowel Movements 1 0 Narrative: GENERAL: Resting comfortably. HEAD: Atraumatic. Normocephalic. EYES: Pupils equal and round. No scleral icterus. No injection or drainage. ENT: No nasal bleeding or discharge. Mucous membranes pink and moist. NECK: Trachea midline. No JVD. CARDIOVASCULAR: Regular rate and rhythm. No murmur appreciated. RESPIRATORY: CTAB. GASTROINTESTINAL: Abdomen soft, non-tender, nondistended. Hepatic and splenic margins not palpable. MUSCULOSKELETAL: No obvious deformities. No clubbing. No cyanosis. No edema. NEUROLOGICAL: No gross deficits. - Urinary Catheter Management Indwelling Urethral Catheter Cath placed during this visit: yes Reason for continuing: Hourly intake/output Insertion date: 12/06/17 Insertion time: 23:21 Female External Cath placed during this visit: no Results - Labs CBC & Chem 7: 12/08/17 04:26 12/10/17 04:52 Laboratory Results - last 24 hr 12/09/17 12/09/17 12/10/17 17:39 23:22 04:52 Sodium Potassium Chloride Carbon Dioxide Anion Gap BUN Creatinine Estimated GFR POC Glucose 242 H 280 H Random Glucose Calcium Total Bilirubin AST ALT Alkaline Phosphatase Troponin I B-Natriuretic Peptide 889 H Total Protein Albumin 12/10/17 12/10/17 12/10/17 04:52 05:44 11:34 Sodium 141 Potassium 3.7 Chloride 106 Carbon Dioxide 28.1 Anion Gap 7 BUN 24 H Creatinine 0.67 Estimated GFR 87 L POC Glucose 169 H Random Glucose 168 H Calcium 8.5 Total Bilirubin 0.5 AST 25 ALT 12 Alkaline Phosphatase 65 Troponin I 1.99 H* D B-Natriuretic Peptide Total Protein 5.6 L D Albumin 2.8 L 12/10/17 12:37 Sodium Potassium Chloride Carbon Dioxide Anion Gap BUN Creatinine Estimated GFR POC Glucose 327 H Random Glucose Calcium Total Bilirubin AST ALT Alkaline Phosphatase Troponin I B-Natriuretic Peptide Total Protein Albumin Microbiology 12/07/17 02:30 Blood - Peripheral Aerobic Blood Culture - Preliminary No growth in 3 days 12/07/17 02:30 Blood - Peripheral Anaerobic Blood Culture - Preliminary No growth in 3 days 12/07/17 02:25 Blood - Peripheral Aerobic Blood Culture - Preliminary No growth in 3 days 12/07/17 02:25 Blood - Peripheral Anaerobic Blood Culture - Preliminary No growth in 3 days - Imaging Impressions Chest X-Ray 12/10/17 10:17 CONCLUSION: Left basilar atelectasis. Cardiomegaly. Assessment and Plan - Plan Respiratory failure/ COPD exacerbation/ Acute on chronic systolic CHF exacerbation The pt has been extubated and is breathing comfortably on nasal cannula. -continue Lasix. -oxygen as needed. -DuoNeb scheduled and as needed. -switch Solumedrol to prednisone. -Empiric antibiotics for airspace disease noted on CXR. -palliative care consult appreciated. -IS, PT. NSTEMI The pt has a history of CAD and is currently having chest pain at times. Troponin is elevated. -cardiology consult pending. -continue cardiac regimen including ASA, statin, Lopressor, Ranexa, Imdur and Eliquis. -telemetry. -NTG and morphine as needed. DM Poorly controlled, exacerbated by steroids. -wean steroids to prednisone BID. -sliding scale. -add Levemir HS. PPx: Eliquis
[2017-12-10] MEDS: Metoprolol Tartrate 25 MG Tablet PO SCH ×2 (15:43→23:50)
--- NOTE | 2017-12-10 15:52 | MB ---
cc: Kenneth Bales MD DATE: 12/10/2017 REASON FOR CONSULTATION: Abnormal cardiac enzymes. HISTORY OF PRESENT ILLNESS: The patient is a very pleasant 72-year-old white female, followed in our office by Dr. Torey Hernandez, with a history of coronary artery disease, diabetes, COPD, sleep apnea, hypertension, paroxysmal atrial fibrillation, who presented to the hospital with severe shortness of breath. She subsequently was intubated and placed on mechanical ventilation. Cardiac enzymes were checked and found to be abnormal. She denies any recent chest pain except for today when she had a 10-minute episode of "very sharp" substernal chest pain, which was relieved by 2 sublingual nitroglycerin. There was no associated shortness of breath, nausea or diaphoresis with the chest pain. As noted, she cannot recall any other episodes of chest discomfort recently. The patient also denies dizziness, syncope, near syncope, palpitations, paroxysmal nocturnal dyspnea. About 2 weeks ago, she had mild left-sided pedal edema to just above the knee level which resolved after a few days. PAST MEDICAL HISTORY: 1. Coronary artery disease status post bypass surgery 02/04/2002. Her last cardiac catheterization was by Dr. Ruslan Gonzalez on 10/10/2017 showing 99% left main stenosis, totally occluded LAD with patent left internal mammary artery to the LAD, two tandem 50% lesions in the vein graft to the diagonal, totally occluded obtuse marginal with patent vein graft to this vessel, totally occluded right coronary with total occlusion of the vein graft to the posterior descending artery with sequential to the posterolateral branch. Apparently few [id number] collaterals were seen. 2. Diabetes. 3. Oxygen dependent disease. 4. Obstructive sleep apnea. 5. Hypertension. 6. Hiatal hernia. 7. Paroxysmal atrial fibrillation diagnosed 10/21/2017, status post ablation 10/30/2017. PAST SURGICAL HISTORY: 1. Appendectomy. 2. Coronary artery bypass grafting. 3. Cholecystectomy. 4. Thyroid surgery. CARDIAC MEDICATIONS AT HOME: 1. Ranexa 1 gram b.i.d. 2. Potassium chloride 20 mEq daily. 3. Metoprolol succinate 50 mg daily. 4. Isosorbide mononitrate 60 mg daily. 5. Aspirin 81 mg daily. 6. Amlodipine 5 mg daily. 7. Furosemide 40 mg daily. 8. Eliquis 5 mg b.i.d. 9. Atorvastatin 10 mg at bedtime. ALLERGIES: PENICILLIN. FAMILY HISTORY: Noncontributory. SOCIAL HISTORY: The patient is a former smoker. There is no history of alcohol abuse. REVIEW OF SYSTEMS: As in the History Of Present Illness, otherwise negative or noncontributory. She also currently denies headache, abdominal pain, melena, dyspepsia, bright red blood per rectum, fevers. PHYSICAL EXAMINATION: VITAL SIGNS: Her blood pressure is 119/72 with a pulse of 70, respirations 20. GENERAL: She is a well-developed, well-nourished white female, in no acute distress. NECK: Jugular venous pressure is normal. Carotid pulses are 2+ bilaterally and without bruits. CHEST: Reveals diminished breath sounds diffusely. CARDIAC: She has a regular rhythm and rate without S3, S4, or murmur. ABDOMEN: She has a soft, nontender abdomen. Bowel sounds are present. There is no definite hepatosplenomegaly. EXTREMITIES: Reveals no clubbing, cyanosis, or edema. DIAGNOSTIC DATA: Chest x-ray shows left basilar atelectasis. LABORATORY DATA: EKG from 12/07/2017 at 4:38 a.m. shows normal sinus rhythm, probable arm lead reversal. EKG from 12/06/2017 at 10:25 p.m. shows wide complex tachycardia, possible atrial flutter, nonspecific intraventricular conduction delay, cycle length 400 milliseconds. LABORATORY DATA: WBC 13.5, hemoglobin 14.0, platelets 249. Potassium 3.7, BUN 24, creatinine 0.67. Troponin 4.65. CK 101. IMPRESSION: Abnormal troponin level, wide complex tachycardia in this 72-year-old white female with a history of coronary artery disease with history of bypass surgery in 2001 and her last heart catheterization 2 months ago as noted above, diabetes, chronic obstructive pulmonary disease, sleep apnea, hypertension, paroxysmal atrial fibrillation, status post ablation, now admitted with respiratory failure due to chronic obstructive pulmonary disease. The etiology of the elevated troponin level is not entirely clear. The patient denies any recent chest pain symptoms except for today, and the episode today was very brief. EKG from 12/06/2017 does show a wide complex tachycardia and it is unclear whether this was sustained, possibly contributing to the rise in the troponin level. Her heart catheterization just 8 weeks ago also showed no severe disease which was amenable to percutaneous intervention. There is no definite evidence for congestive heart failure. Her left ventricular function by echo 10/10/2017 was mildly reduced apparently with ejection fraction of 40-45%. RECOMMENDATIONS: 1. Consult Dr. Hernandez regarding the wide complex tachycardia, which may be an atrial flutter which is aberrantly conducted. 2. Continued medical therapy for coronary artery disease. W will increase her isosorbide to 120 mg a day. 3. Given her history of mildly reduced left ventricular systolic function, recommend adding an CHAITANYA inhibitor. MD FREDIS Brunner/MALCOLM , 03:22 PM , 03:36 PM [email or web address]
[2017-12-10] MEDS: predniSONE 20 MG Tablet PO SCH (20:52)
[2017-12-11] MEDS: Insulin NovoLOG Aspart Correctional Sugar Inj SQ SCH ×4 (01:21→19:34)
[2017-12-11] MEDS: Morphine Sulfate 60 MG SR Tablet PO SCH ×3 (01:21→19:34)
[2017-12-11] MEDS: Azithromycin Inj 500 MG in Sodium Chlor 0.9% Inj 250 ML IV.SIG SCH (02:30)
[2017-12-11] MEDS: Oral Hygiene Kit OROPHARYNG SCH ×3 (03:15→16:39)
[2017-12-11] MEDS: Chlorhexidine Gluconate 2% 1 Pack (2 Cloths) TOPICAL SCH (03:15)
[2017-12-11 06:29] LABS: Hematocrit 37.4 % (35.0-46.0); Hemoglobin 12.8 gm/dL (11.6-15.3); Lymph # (Auto) 0.8 th/mm3 (1.0-4.8); Lymph % (Auto) 6.8 % (9.0-44.0); Mean Corpuscular HGB Conc 34.2 % (32.0-36.0); Mean Corpuscular Hemoglobin 29.3 pg (27.0-34.0); Mean Corpuscular Volume 85.6 fL (80.0-100.0); Mean Platelet Volume 8.3 fL (7.0-11.0); Mono # (Auto) 0.7 th/mm3 (0.0-0.9); Mono % (Auto) 6.2 % (0.0-8.0); Neut # (Auto) 9.9 th/mm3 (1.8-7.7); Platelet Count 229 th/mm3 (150-450); Red Blood Count 4.37 mil/mm3 (4.00-5.30); Red Cell Distribution Width 15.9 % (11.6-17.2); White Blood Count 11.4 th/mm3 (4.0-11.0)
[2017-12-11 06:52] LABS: Anion Gap 5 meq/L (5-15); Blood Urea Nitrogen 22 mg/dL (7-18); Calcium 8.6 mg/dL (8.5-10.1); Carbon Dioxide 27.8 meq/L (21.0-32.0); Chloride 109 meq/L (98-107); Glomerular Filtration Rate Greater Than 89 mL/min (>89); Glucose,Random 150 mg/dL (74-106); Potassium 3.8 meq/L (3.5-5.1); Sodium 142 meq/L (136-145)
--- NOTE | 2017-12-11 07:41 | P.PNCA ---
Subjective Interval history: No CP, dyspnea, dizziness, palpitations. Slept poorly. Physical Exam Vital signs: Vital Signs 12/10/17 08:00 12/10/17 09:31 12/10/17 10:23 Temperature 98.4 F Pulse Rate 67 73 Respiratory Rate 10 L 17 18 Blood Pressure 117/56 L Pulse Oximetry 95 94 L 12/10/17 10:24 12/10/17 10:54 12/10/17 11:54 Temperature Pulse Rate Respiratory Rate 17 18 18 Blood Pressure Pulse Oximetry 12/10/17 12:00 12/10/17 16:00 12/10/17 16:09 Temperature 98.6 F 98.6 F Pulse Rate 69 72 71 Respiratory Rate 20 22 17 Blood Pressure 119/72 141/74 H Pulse Oximetry 96 97 12/10/17 20:00 12/10/17 20:25 12/10/17 20:37 Temperature 98.6 F Pulse Rate 74 76 Respiratory Rate 16 18 20 Blood Pressure 132/61 Pulse Oximetry 96 96 12/11/17 00:00 12/11/17 01:21 12/11/17 04:00 Temperature 98.9 F 97.7 F Pulse Rate 70 68 Respiratory Rate 22 12 13 Blood Pressure 138/78 130/70 Pulse Oximetry 96 95 Intake & Output 12/10/17 12/11/17 12/11/17 18:59 06:59 18:59 Intake Total 580 / 580 120 / 120 Output Total 400 / 400 350 / 350 Balance 180 / 180 -230 / -230 Weight 77.2 kg Intake: IV 100 / 100 Rocephin Inj 1,000 MG In NS Inj 100 / 100 100 ML @ 200 mls/hr IV.SIG Q12H RICHELLE Rx#:[id number] Oral 480 / 480 120 / 120 Output: Urine 350 / 350 Urine Amount (Catheter) 400 / 400 Female External 400 / 400 Other: Date of Last Bowel Movement 12/08/17 12/09/17 # Bowel Movements 0 0 - Constitutional no acute distress - Routine Neck Exam Absent: JVD - Routine Respiratory Exam Present: CTA bilaterally - Routine Cardiovascular Exam Present: RRR, S1, S2. Absent: murmur, gallop - Routine Abdominal Exam Present: soft, normoactive bowel sounds. Absent: tenderness, organomegaly - Routine Extremities Exam Absent: cyanosis, clubbing, edema - Urinary Catheter Management Indwelling Urethral Catheter Cath placed during this visit: yes Reason for continuing: Hourly intake/output Insertion date: 12/06/17 Insertion time: 23:21 Female External Cath placed during this visit: no Assessment and Plan - Assessment (1) Non-ST elevation (NSTEMI) myocardial infarction Code(s): I21.4 - Non-ST elevation (NSTEMI) myocardial infarction Status: Acute Plan: Stable overnight. No definite angina symptoms recently. No disease amenable to percutaneous intervention on cath about 8 weeks ago. Recommend continued medical therapy of her CAD. Will f/u PRN. (2) Wide-complex tachycardia Code(s): I47.2 - Ventricular tachycardia Status: Acute Plan: Rhythm status stable. Duration of the wide complex tachycardia captured on initial EKG unclear. Await Dr. Hernandez's input. (3) Hypertension Code(s): I10 - Essential (primary) hypertension Status: Chronic Plan: Stable. Mostly normotensive. (4) Paroxysmal atrial fibrillation Code(s): I48.0 - Paroxysmal atrial fibrillation Status: Chronic Plan: Stable. History of fairly recent ablation. Continue f/u with Dr. Hernandez. - Plan Code Status: full code Discussed Condition With: patient (3) Hypertension Qualifiers: Hypertension type: essential hypertension Qualified Code(s): I10 - Essential (primary) hypertension
[2017-12-11] MEDS: Metoprolol Tartrate 25 MG Tablet PO SCH ×2 (09:00→09:26)
[2017-12-11] MEDS: Chlorhexidine 0.12% Oral Kit 15 ML UDC OROPHARYNG SCH ×2 (09:22→20:47)
[2017-12-11] MEDS: Sucralfate 1 GM Tablet PO SCH ×2 (09:24→20:47)
[2017-12-11] MEDS: Isosorbide Mononitrate 60 MG ER 24HR Tablet (Imdur) PO SCH (09:24)
[2017-12-11] MEDS: predniSONE 20 MG Tablet PO SCH ×2 (09:25→20:47)
[2017-12-11] MEDS: Senna/Docusate Sodium 8.6/50 MG Tablet PO SCH ×2 (09:25→20:47)
[2017-12-11] MEDS: guaiFENesin 600 MG ER Tablet PO SCH ×2 (09:25→20:47)
[2017-12-11] MEDS: Ranolazine 500 MG 12HR ER Tablet PO SCH ×2 (09:25→20:47)
[2017-12-11] MEDS: Furosemide 40 MG Tablet PO SCH (09:26)
[2017-12-11] MEDS: amLODIPine 5 MG Tablet PO SCH (09:26)
[2017-12-11] MEDS: Famotidine 20 MG Tablet PO SCH (09:27)
[2017-12-11] MEDS: Famotidine PF Inj 20 MG/2 ML Vial IV.PUSH SCH ×2 (09:29→20:48)
[2017-12-11] MEDS: Sod Chloride 0.9% Inj 1,000 ML IV.CONT SCH (12:50)
--- NOTE | 2017-12-11 15:33 | ECG ---
Date Performed: 12/10/2017 Time Performed: 09:53:34 PTAGE: 72 years EKG: Sinus rhythm . Extensive ST-T changes may be due to myocardial ischemia Compared to previous tracing extensive ST changes are new, consider myocardial ischemia. Limb lead reversal has been corrected. Abnormal ECG PREVIOUS TRACING : 12/07/17 DOCTOR: Babak Murray Interpretating Date/Time 12/11/2017 15:33:10
--- NOTE | 2017-12-11 17:13 | P.PNIM ---
Subjective Interval history: The patient said that she had some stabbing pain on her left chest wall earlier. She said that she cannot take metoprolol because it drops her blood pressure. She said she worked with physical therapy. Discussed with nursing at the bedside. Physical Exam Vital signs: Vital Signs 12/10/17 20:00 12/10/17 20:25 12/10/17 20:37 Temperature 98.6 F Pulse Rate 74 76 Respiratory Rate 16 18 20 Blood Pressure 132/61 Pulse Oximetry 96 96 12/11/17 00:00 12/11/17 01:21 12/11/17 04:00 Temperature 98.9 F 97.7 F Pulse Rate 70 68 Respiratory Rate 22 12 13 Blood Pressure 138/78 130/70 Pulse Oximetry 96 95 12/11/17 08:00 12/11/17 08:39 12/11/17 10:00 Temperature 97.9 F Pulse Rate 68 74 Respiratory Rate 25 H Blood Pressure 141/77 H Pulse Oximetry 96 96 12/11/17 12:00 12/11/17 14:00 Temperature 98.7 F Pulse Rate 80 74 Respiratory Rate 51 H Blood Pressure 105/60 Pulse Oximetry 92 L Intake & Output 12/10/17 12/11/17 12/11/17 18:59 06:59 18:59 Intake Total 580 / 580 220 / 220 1000 / 1000 Output Total 400 / 400 350 / 350 Balance 180 / 180 -130 / -130 1000 / 1000 Weight 77.2 kg Intake: IV 100 / 100 100 / 100 1000 / 1000 NS Inj 1,000 ML @ 84 mls/hr IV. 1000 / 1000 CONT .[id number] RICHELLE Rx#:[id number] Rocephin Inj 1,000 MG In NS Inj 100 / 100 100 / 100 100 ML @ 200 mls/hr IV.SIG Q12H RICHELLE Rx#:[id number] Oral 480 / 480 120 / 120 Output: Urine 350 / 350 Urine Amount (Catheter) 400 / 400 Female External 400 / 400 Other: Date of Last Bowel Movement 12/08/17 12/09/17 # Bowel Movements 0 0 Narrative: GENERAL: Resting comfortably. HEAD: Atraumatic. Normocephalic. EYES: Pupils equal and round. No scleral icterus. No injection or drainage. ENT: No nasal bleeding or discharge. Mucous membranes pink and moist. NECK: Trachea midline. No JVD. CARDIOVASCULAR: Regular rate and rhythm. No murmur appreciated. RESPIRATORY: CTAB. GASTROINTESTINAL: Abdomen soft, non-tender, nondistended. Hepatic and splenic margins not palpable. MUSCULOSKELETAL: No obvious deformities. No clubbing. No cyanosis. No edema. NEUROLOGICAL: No gross deficits. - Urinary Catheter Management Indwelling Urethral Catheter Cath placed during this visit: yes Reason for continuing: Hourly intake/output Insertion date: 12/06/17 Insertion time: 23:21 Female External Cath placed during this visit: no Results - Labs CBC & Chem 7: 12/11/17 05:55 12/11/17 05:55 Laboratory Results - last 24 hr 12/10/17 12/11/17 12/11/17 18:22 00:44 05:55 WBC 11.4 H RBC 4.37 Hgb 12.8 Hct 37.4 MCV 85.6 MCH 29.3 MCHC 34.2 RDW 15.9 Plt Count 229 MPV 8.3 Neut % (Auto) 87.0 H Lymph % (Auto) 6.8 L [place]ock % (Auto) 6.2 Eos % (Auto) 0.0 Baso % (Auto) 0.0 Neut # (Auto) 9.9 H Lymph # (Auto) 0.8 L [place] # (Auto) 0.7 Eos # (Auto) 0.0 Baso # (Auto) 0.0 WBC Differential . Differential Comment Auto diff final Sodium Potassium Chloride Carbon Dioxide Anion Gap BUN Creatinine Estimated GFR POC Glucose 218 H 192 H Random Glucose Calcium 12/11/17 12/11/17 12/11/17 05:55 05:58 13:23 WBC RBC Hgb Hct MCV MCH MCHC RDW Plt Count MPV Neut % (Auto) Lymph % (Auto) Gl[place]ock % (Auto) Eos % (Auto) Baso % (Auto) Neut # (Auto) Lymph # (Auto) [place]ock # (Auto) Eos # (Auto) Baso # (Auto) WBC Differential Differential Comment Sodium 142 Potassium 3.8 Chloride 109 H Carbon Dioxide 27.8 Anion Gap 5 BUN 22 H Creatinine 0.62 Estimated GFR Greater than 89 POC Glucose 151 H 289 H Random Glucose 150 H Calcium 8.6 Microbiology 12/07/17 02:30 Blood - Peripheral Aerobic Blood Culture - Preliminary No growth in 4 days 12/07/17 02:30 Blood - Peripheral Anaerobic Blood Culture - Preliminary No growth in 4 days 12/07/17 02:25 Blood - Peripheral Aerobic Blood Culture - Preliminary No growth in 4 days 12/07/17 02:25 Blood - Peripheral Anaerobic Blood Culture - Preliminary No growth in 4 days Assessment and Plan - Plan Respiratory failure/ COPD exacerbation/ Acute on chronic systolic CHF exacerbation The pt has been extubated and is breathing comfortably on nasal cannula. -continue Lasix. -oxygen as needed. -DuoNeb scheduled and as needed. -switch Solumedrol to prednisone. -Empiric antibiotics for airspace disease noted on CXR. -palliative care consult appreciated. -IS, PT. NSTEMI The pt has a history of CAD and is currently having chest pain at times. Troponin is elevated. Cardiology consult appreciated. -continue cardiac regimen including ASA, statin, Ranexa, Imdur and Eliquis. The pt requests we discontinue metoprolol as she says she cannot tolerate it. -telemetry. -NTG and morphine as needed. Wide rhythm tachycardia The pt had a wide rhythm tachycardia on admission EKG. - cardiology requesting Dr. Hernandez to evaluate. - telemetry. DM Poorly controlled, exacerbated by steroids. -wean steroids to prednisone BID. -sliding scale. -added Levemir HS. PPx: Eliquis
[2017-12-11] MEDS: oxyCODONE/Acetaminophen 10/325 Tablet PO PRN (17:25)
[2017-12-11] MEDS: HYDROmorphone PF Inj 2 MG/ML Vial IV.PUSH PRN (21:21)
[2017-12-12] MEDS: Oral Hygiene Kit OROPHARYNG SCH ×4 (00:02→19:17)
[2017-12-12] MEDS: Insulin NovoLOG Aspart Correctional Sugar Inj SQ SCH ×4 (00:15→19:30)
[2017-12-12] MEDS: Azithromycin Inj 500 MG in Sodium Chlor 0.9% Inj 250 ML IV.SIG SCH (01:03)
[2017-12-12] MEDS: Morphine Sulfate 60 MG SR Tablet PO SCH ×3 (01:03→19:16)
[2017-12-12] MEDS: Sod Chloride 0.9% Inj 1,000 ML IV.CONT SCH ×2 (04:52→12:16)
[2017-12-12] MEDS: Chlorhexidine 0.12% Oral Kit 15 ML UDC OROPHARYNG SCH ×2 (07:52→20:48)
[2017-12-12] MEDS: Famotidine PF Inj 20 MG/2 ML Vial IV.PUSH SCH ×2 (08:07→20:48)
[2017-12-12] MEDS: Furosemide 40 MG Tablet PO SCH (08:08)
[2017-12-12] MEDS: amLODIPine 5 MG Tablet PO SCH (08:08)
[2017-12-12] MEDS: predniSONE 20 MG Tablet PO SCH ×2 (08:08→20:47)
[2017-12-12] MEDS: Famotidine 20 MG Tablet PO SCH (08:08)
[2017-12-12] MEDS: oxyCODONE/Acetaminophen 10/325 Tablet PO PRN ×3 (08:09→22:14)
[2017-12-12] MEDS: Ranolazine 500 MG 12HR ER Tablet PO SCH ×2 (08:09→20:47)
[2017-12-12] MEDS: Sucralfate 1 GM Tablet PO SCH ×2 (08:09→20:47)
[2017-12-12] MEDS: guaiFENesin 600 MG ER Tablet PO SCH ×2 (08:09→20:47)
[2017-12-12] MEDS: Isosorbide Mononitrate 60 MG ER 24HR Tablet (Imdur) PO SCH (08:09)
[2017-12-12] MEDS: Senna/Docusate Sodium 8.6/50 MG Tablet PO SCH ×2 (08:19→20:48)
--- NOTE | 2017-12-12 13:56 | P.PNPAL ---
Reason for Visit Reason for visit: a. To assist with evaluation and management of symptoms including: Shortness of breath, debility b. To assist medical decision maker(s) with: better understanding of current medical conditions; weighing benefits/burdens of medical treatment options; making medical treatment decisions. Subjective Subjective/Interval History: Follow-up medically necessary for symptom management. Patient seen and examined in the room on [facility]. Patient is currently lying in bed, awake, alert oriented to self, place and situation. Patient complaining of intermittent chest pain. Patient describes it as intermittent with no need for Nitropaste. Pain also controlled with morphine sulfate 60 mg every 8 hours around-the- clock. Patient is also on hydromorphone 1 mg IVP q 4 hrs. She is sparingly requiring use of hydromorphone. Patient remains on O2 2 L nasal cannula. O2 saturation in the mid to high 90s. Cardiology Dr. Bales consult on 12/10/17 for abnormal cardiac enzymes, recommended medical therapy for coronary artery disease by increasing isosorbide dosage, CHAITANYA inhibitor for mildly reduced left ventricular systolic function, and consulting Dr. Hernandez regarding wide complex tachycardia. Physical therapy following with patient, recommending home with home health PT. Advance Directives Living Will: Never completed Health Care Surrogate: Copy in medical record Durable Power of Director Software Development: Never completed Health Care Surrogate Name and Number: Yohan Benjamin [phone] alt: Trisha Gorman [phone] Objective Vital Signs: Vital Signs 12/11/17 14:00 12/11/17 16:00 12/11/17 18:00 Temperature 98.8 F Pulse Rate 74 78 78 Respiratory Rate 17 Blood Pressure 117/62 Pulse Oximetry 95 12/11/17 19:35 12/11/17 20:00 12/11/17 20:11 Temperature 98 F Pulse Rate 82 Respiratory Rate 18 25 H Blood Pressure 113/98 H Pulse Oximetry 95 96 12/11/17 22:00 12/12/17 00:00 12/12/17 02:00 Temperature 98.1 F Pulse Rate 74 70 68 Respiratory Rate 14 Blood Pressure 128/66 Pulse Oximetry 95 12/12/17 04:00 12/12/17 06:00 12/12/17 08:00 Temperature 98.1 F Pulse Rate 74 66 67 Respiratory Rate 16 16 Blood Pressure 135/74 137/84 Pulse Oximetry 96 97 12/12/17 08:35 12/12/17 10:00 12/12/17 10:40 Temperature Pulse Rate 70 Respiratory Rate 20 Blood Pressure Pulse Oximetry 96 12/12/17 12:00 Temperature Pulse Rate Respiratory Rate 18 Blood Pressure Pulse Oximetry Intake & Output 12/11/17 12/12/17 12/12/17 18:59 06:59 18:59 Intake Total 1700 / 1700 200 / 200 1450 / 1450 Output Total 10 400 / 400 Balance 1690 / 1690 -200 / -200 1450 / 1450 Weight 80.4 kg Intake: IV 1100 / 1100 1450 / 1450 Diprivan 1000 mg/100 ml Inj 1, 0 / 0 000 mg In 100 ml @ 5 MCG/KG/MIN 2.109 mls/hr IV.CONT TITRATE PRN Rx#:[id number] NS Inj 1,000 ML @ 84 mls/hr IV. 1000 / 1000 1000 / 1000 CONT .[id number] RICHELLE Rx#:[id number] Azithromycin Inj 500 MG In NS 250 / 250 Inj 250 ML @ 250 mls/hr IV.SIG Q24H RICHELLE Rx#:[id number] Rocephin Inj 1,000 MG In NS Inj 100 / 100 200 / 200 100 ML @ 200 mls/hr IV.SIG Q12H RICHELLE Rx#:[id number] Oral 600 / 600 200 / 200 Output: Urine 400 / 400 Other: # Voids 3 # Urine Diapers 1 Date of Last Bowel Movement 12/11/17 12/11/17 12/12/17 # Bowel Movements 1 1 Physical Exam: CONSTITUTIONAL/GENERAL: This is an adequately nourished patient, in no apparent distress. TUBES/LINES/DRAINS: Nasal cannula, PIV,Pure wick female external catheter SKIN: No jaundice, rashes, or lesions. Ecchymoses on upper extremities. No wounds seen anteriorly. Normothermic HEAD: Atraumatic. Normocephalic. EYES: PERRLA. No scleral icterus. No injection or drainage. Fundi not examined. ENT: Hearing grossly normal. Nose without bleeding or purulent drainage. Moist oral mucosa CARDIOVASCULAR: Regular rate and rhythm without murmurs, gallops, or rubs. No JVD. Peripheral pulses symmetric. RESPIRATORY/CHEST: Symmetric, unlabored respirations. Lungs clear to auscultation. No wheezes, rales, or rhonchi. GASTROINTESTINAL: Abdomen soft, non-tender, nondistended. Positive bowel sounds GENITOURINARY: Without palpable bladder distension. Pure wick female external catheter NEUROLOGICAL: Awake and alert. Motor and sensory grossly within normal limits. Moves all extremities to command PSYCHIATRIC: No obvious anxiety/depression. no apparent hallucinations or other psychotic thought process. Diagnostic Tests Laboratory: Laboratory Results - last 72 hr 12/09/17 12/09/17 12/10/17 17:39 23:22 04:52 WBC RBC Hgb Hct MCV MCH MCHC RDW Plt Count MPV Neut % (Auto) Lymph % (Auto) Morton % (Auto) Eos % (Auto) Baso % (Auto) Neut # (Auto) Lymph # (Auto) Morton # (Auto) Eos # (Auto) Baso # (Auto) WBC Differential Differential Comment Sodium Potassium Chloride Carbon Dioxide Anion Gap BUN Creatinine Estimated GFR POC Glucose 242 H 280 H Random Glucose Calcium Total Bilirubin AST ALT Alkaline Phosphatase Troponin I B-Natriuretic Peptide 889 H Total Protein Albumin 12/10/17 12/10/17 12/10/17 04:52 05:44 11:34 WBC RBC Hgb Hct MCV MCH MCHC RDW Plt Count MPV Neut % (Auto) Lymph % (Auto) Morton % (Auto) Eos % (Auto) Baso % (Auto) Neut # (Auto) Lymph # (Auto) Morton # (Auto) Eos # (Auto) Baso # (Auto) WBC Differential Differential Comment Sodium 141 Potassium 3.7 Chloride 106 Carbon Dioxide 28.1 Anion Gap 7 BUN 24 H Creatinine 0.67 Estimated GFR 87 L POC Glucose 169 H Random Glucose 168 H Calcium 8.5 Total Bilirubin 0.5 AST 25 ALT 12 Alkaline Phosphatase 65 Troponin I 1.99 H* D B-Natriuretic Peptide Total Protein 5.6 L D Albumin 2.8 L 12/10/17 12/10/17 12/11/17 12:37 18:22 00:44 WBC RBC Hgb Hct MCV MCH MCHC RDW Plt Count MPV Neut % (Auto) Lymph % (Auto) Morton % (Auto) Eos % (Auto) Baso % (Auto) Neut # (Auto) Lymph # (Auto) Morton # (Auto) Eos # (Auto) Baso # (Auto) WBC Differential Differential Comment Sodium Potassium Chloride Carbon Dioxide Anion Gap BUN Creatinine Estimated GFR POC Glucose 327 H 218 H 192 H Random Glucose Calcium Total Bilirubin AST ALT Alkaline Phosphatase Troponin I B-Natriuretic Peptide Total Protein Albumin 12/11/17 12/11/17 12/11/17 05:55 05:55 05:58 WBC 11.4 H RBC 4.37 Hgb 12.8 Hct 37.4 MCV 85.6 MCH 29.3 MCHC 34.2 RDW 15.9 Plt Count 229 MPV 8.3 Neut % (Auto) 87.0 H Lymph % (Auto) 6.8 L Morton % (Auto) 6.2 Eos % (Auto) 0.0 Baso % (Auto) 0.0 Neut # (Auto) 9.9 H Lymph # (Auto) 0.8 L Morton # (Auto) 0.7 Eos # (Auto) 0.0 Baso # (Auto) 0.0 WBC Differential . Differential Comment Auto diff final Sodium 142 Potassium 3.8 Chloride 109 H Carbon Dioxide 27.8 Anion Gap 5 BUN 22 H Creatinine 0.62 Estimated GFR Greater than 89 POC Glucose 151 H Random Glucose 150 H Calcium 8.6 Total Bilirubin AST ALT Alkaline Phosphatase Troponin I B-Natriuretic Peptide Total Protein Albumin 12/11/17 12/11/17 12/12/17 13:23 19:22 00:05 WBC RBC Hgb Hct MCV MCH MCHC RDW Plt Count MPV Neut % (Auto) Lymph % (Auto) Morton % (Auto) Eos % (Auto) Baso % (Auto) Neut # (Auto) Lymph # (Auto) Morton # (Auto) Eos # (Auto) Baso # (Auto) WBC Differential Differential Comment Sodium Potassium Chloride Carbon Dioxide Anion Gap BUN Creatinine Estimated GFR POC Glucose 289 H 205 H 132 H Random Glucose Calcium Total Bilirubin AST ALT Alkaline Phosphatase Troponin I B-Natriuretic Peptide Total Protein Albumin 12/12/17 12/12/17 06:45 12:03 WBC RBC Hgb Hct MCV MCH MCHC RDW Plt Count MPV Neut % (Auto) Lymph % (Auto) Morton % (Auto) Eos % (Auto) Baso % (Auto) Neut # (Auto) Lymph # (Auto) Morton # (Auto) Eos # (Auto) Baso # (Auto) WBC Differential Differential Comment Sodium Potassium Chloride Carbon Dioxide Anion Gap BUN Creatinine Estimated GFR POC Glucose 140 H 184 H Random Glucose Calcium Total Bilirubin AST ALT Alkaline Phosphatase Troponin I B-Natriuretic Peptide Total Protein Albumin Result Diagrams: 12/14/17 06:49 12/14/17 06:49 Microbiology: Microbiology 12/07/17 02:30 Aerobic Blood Culture - Final Blood - Peripheral No growth in 5 days Anaerobic Blood Culture - Final No growth in 5 days 12/07/17 02:25 Aerobic Blood Culture - Final Blood - Peripheral No growth in 5 days Anaerobic Blood Culture - Final No growth in 5 days Imaging: Chest X-Ray 12/10/17 10:17 CONCLUSION: Left basilar atelectasis. Cardiomegaly. Procedures: 12/06/17-endotracheal intubation 12/09/17-medically extubated Assessment and Plan - Disease Oriented Problem List (1) Respiratory failure (2) Non-ST elevation (NSTEMI) myocardial infarction (3) CHF exacerbation (4) CAD (coronary artery disease) (5) Hypertension - Symptom Scale (1) Shortness of breath Comment: History of CHF and COPD. (2) Debility Comment: Progressive. Multiple hospitalizations. Pertinent Non-Medical Issues: Psychosocial: Patient was born and raised in [place]. She moved to [place] 32 years ago. 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 Patient has been twice and she has been for 26 years to her current Yohan Benjamin. Patient has 2 adult children, a daughter Malorie Vizcaino who resides in [place] and son Binh Espana who lives locally. Patient`s son has had traumatic brain injury. 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 Legal:Complted and signed HCS form today 12/10/17 Ethical issues impacting care: None identified at this time Important Contacts: Spouse-[facility]- Sourav Apollo [phone] / [phone] Friend-Alt [facility]- Trisha Gorman- [phone] Prognosis: is a 72-year-old female with an extensive cardiac medical history inclusive of myocardial infarction 3, coronary artery disease, CABG bypass 5 vessels, congestive heart failure, chronic obstructive pulmonary disease oxygen dependent, tobacco use, pneumonia, hypertension, hypothyroidism, diabetes mellitus, and hypercholesterolemia. Patient was brought to the emergency room on 12/07/17 via EMS with complaints of shortness of breath for a day prior to coming to the ER. Patient's O2 saturation was 67% on BiPAP at time of arrival. Clinical course complicated with shortness of breath requiring intubation, elevated cardiac enzymes. Given patient's ongoing multiple comorbidities, patient remains at high risk for further deterioration and decline. Code Status: Full Code Plan: PLAN: Legal decision maker: Patient is currently able to participate in making his own medical decisions. In the event that she is not capacitated she designated he Sourav Almanzar as a healthcare surrogate and dear friend Trisha Cardenas is here alternate healthcare surrogate. Goals: Remain aggressive-patient awaiting consultation with Dr. Hernandez- history of recent ablation. CODE STATUS: Full code SYMPTOMS: * Shortness of breath: Patient has history of CHF and COPD. Came in complaining of shortness of breath. Patient was intubated for 4 days. Patient was extubated 12/10/17 to O2 2 L nasal cannula. Patient managed with diuretics and bronchodilators. Currently denies shortness of breath. O2 saturation in the mid 90s. No recommendations at this time. * Pain: Patient complaining of intermittent chest pain. Patient describes it as coming and going with no need for Nitropaste. Pain also controlled with morphine sulfate 60 mg every 8 hours [id number]. Patient is also on hydromorphone 1 mg IVP q 4 hrs. Patient sparingly required use of hydromorphone. * Debility: Progressive. Patient has an extensive cardiac history and COPD on home oxygen prn per patient. She has had 3 hospitalizations for cardiac related issues and COPD exacerbation. With patient's multiple comorbidities she will most likely continue to have complications due to his extensive cardiac history and COPD. Recommending physical therapy consult since goals are aggressive. Palliative care will continue to follow the patient during hospital course as condition evolves, to assist patient/decision-maker with understanding of their medical conditions, weighing benefits/burdens of treatment options, for clarification of goals of treatment. Additionally will assist with any symptoms of palliative concern
--- NOTE | 2017-12-12 17:29 | P.PNIM ---
Subjective Interval history: The patient complained of left-sided chest pain. She said pain medication helped. She requested something to help with sleep. Discussed with nursing at the bedside. Physical Exam Vital signs: Vital Signs 12/11/17 18:00 12/11/17 19:35 12/11/17 20:00 Temperature 98 F Pulse Rate 78 82 Respiratory Rate 18 25 H Blood Pressure 113/98 H Pulse Oximetry 95 12/11/17 20:11 12/11/17 22:00 12/12/17 00:00 Temperature 98.1 F Pulse Rate 74 70 Respiratory Rate 14 Blood Pressure 128/66 Pulse Oximetry 96 95 12/12/17 02:00 12/12/17 04:00 12/12/17 06:00 Temperature Pulse Rate 68 74 66 Respiratory Rate 16 Blood Pressure 135/74 Pulse Oximetry 96 12/12/17 08:00 12/12/17 08:35 12/12/17 10:00 Temperature 98.1 F Pulse Rate 67 70 Respiratory Rate 16 Blood Pressure 137/84 Pulse Oximetry 97 96 12/12/17 10:40 12/12/17 12:00 Temperature 98.1 F Pulse Rate 68 Respiratory Rate 20 20 Blood Pressure 110/68 Pulse Oximetry 97 Intake & Output 12/11/17 12/12/17 12/12/17 18:59 06:59 18:59 Intake Total 1700 / 1700 200 / 200 1450 / 1450 Output Total 400 / 400 Balance 1690 / 1690 -200 / -200 1450 / 1450 Weight 80.4 kg Intake: IV 1100 / 1100 1450 / 1450 Diprivan 1000 mg/100 ml Inj 1, 0 / 0 000 mg In 100 ml @ 5 MCG/KG/MIN 2.109 mls/hr IV.CONT TITRATE PRN Rx#:[id number] NS Inj 1,000 ML @ 84 mls/hr IV. 1000 / 1000 1000 / 1000 CONT .[id number] RICHELLE Rx#:[id number] Azithromycin Inj 500 MG In NS 250 / 250 Inj 250 ML @ 250 mls/hr IV.SIG Q24H RICHELLE Rx#:[id number] Rocephin Inj 1,000 MG In NS Inj 100 / 100 200 / 200 100 ML @ 200 mls/hr IV.SIG Q12H RICHELLE Rx#:[id number] Oral 600 / 600 200 / 200 Output: Urine 10 / 10 400 / 400 Other: # Voids 3 # Urine Diapers 1 Date of Last Bowel Movement 12/11/17 12/11/17 12/12/17 # Bowel Movements 1 1 Narrative: GENERAL: Resting comfortably. HEAD: Atraumatic. Normocephalic. EYES: Pupils equal and round. No scleral icterus. No injection or drainage. ENT: No nasal bleeding or discharge. Mucous membranes pink and moist. NECK: Trachea midline. No JVD. CARDIOVASCULAR: Regular rate and rhythm. No murmur appreciated. RESPIRATORY: CTAB. GASTROINTESTINAL: Abdomen soft, non-tender, nondistended. Hepatic and splenic margins not palpable. MUSCULOSKELETAL: No obvious deformities. No clubbing. No cyanosis. No edema. NEUROLOGICAL: No gross deficits. - Urinary Catheter Management Indwelling Urethral Catheter Cath placed during this visit: yes Reason for continuing: Hourly intake/output Insertion date: 12/06/17 Insertion time: 23:21 Female External Cath placed during this visit: no Results - Labs CBC & Chem 7: 12/11/17 05:55 12/11/17 05:55 Laboratory Results - last 24 hr 12/11/17 12/12/17 12/12/17 19:22 00:05 06:45 POC Glucose 205 H 132 H 140 H 12/12/17 12:03 POC Glucose 184 H Microbiology 12/07/17 02:30 Blood - Peripheral Aerobic Blood Culture - Final No growth in 5 days 12/07/17 02:30 Blood - Peripheral Anaerobic Blood Culture - Final No growth in 5 days 12/07/17 02:25 Blood - Peripheral Aerobic Blood Culture - Final No growth in 5 days 12/07/17 02:25 Blood - Peripheral Anaerobic Blood Culture - Final No growth in 5 days Assessment and Plan - Plan Respiratory failure/ COPD exacerbation/ Acute on chronic systolic CHF exacerbation The pt has been extubated and is breathing comfortably on nasal cannula. -continue Lasix. -oxygen as needed. -DuoNeb scheduled and as needed. -switch Solumedrol to prednisone. -Empiric antibiotics for airspace disease noted on CXR. -palliative care consult appreciated. -IS, PT. NSTEMI The pt has a history of CAD and is currently having chest pain at times. Troponin is elevated. Cardiology consult appreciated. -continue cardiac regimen including ASA, statin, Ranexa, Imdur and Eliquis. The pt requests we discontinue metoprolol as she says she cannot tolerate it. -telemetry. -NTG and morphine as needed. -repeat EKG. -cardiology following. Wide rhythm tachycardia The pt had a wide rhythm tachycardia on admission EKG. - cardiology requesting Dr. Hernandez to evaluate. Consult pending. - telemetry. DM Improved. -wean steroids to prednisone daily. -sliding scale. -added Maira MARLEY. PPx: Kiara
[2017-12-12] MEDS: Temazepam 15 MG Capsule PO PRN (22:14)
--- NOTE | 2017-12-13 00:09 | MB ---
cc: Torey Hernandez MD DATE: 12/12/2017 REASON FOR CONSULTATION: Wide complex tachyarrhythmia. HISTORY OF PRESENT ILLNESS: Mrs. Small is a 72-year-old female with a history of atrial fibrillation. She has a previous ablation; that was on 11/29/2017. She was admitted to the emergency room with shortness of breath. Oxygen was around 67%. She was still smoking until 2 weeks ago. She was put in a BiPAP mask. Subsequently, the BiPAP mask was discontinued. During hospitalization, she developed wide complex tachyarrhythmia. I was consulted for evaluation and management. The chart was reviewed. The patient was evaluated. ALLERGIES: PENICILLIN. SOCIAL HISTORY: The patient quit smoking 2 weeks ago. FAMILY HISTORY: Noncontributory to her current medical condition. MEDICATIONS: 1. Acetaminophen. 2. Amlodipine. 3. Eliquis 5 mg twice a day. 4. Aspirin. 5. Lipitor 10 mg a day. 6. Zithromax. 7. Ceftriaxone. 8. Magnesium. 9. Restoril. 10. Carafate. REVIEW OF SYSTEMS: She reports feeling better. No chest pains. Some minimal shortness of breath, but no fever. PHYSICAL EXAMINATION: GENERAL: Alert, fully oriented. VITAL SIGNS: Her blood pressure on evaluation this afternoon is 110/68, pulse 68, respiratory rate 18. LUNGS: Ventilated. CARDIOVASCULAR: S1, S2 regular. No gallop. ABDOMEN: Soft. No mass. No bruits. EXTREMITIES: No edema. ELECTROCARDIOGRAM: Sinus rhythm. No acute ST and T-wave changes. LABORATORY DATA: Hemoglobin is 12.8, white blood cell 11.4. INR 1.1. Potassium 3.8, creatinine is 0.62. ASSESSMENT AND RECOMMENDATIONS: Mrs. Small is stable. She had an echocardiogram performed in October that had an ejection fraction of around 40-45%. She has some wide complex tachyarrhythmia. It may be supraventricular tachycardia with aberrancy ____ the patient was in a BiPAP mask. Since then, stable, in sinus rhythm. At this point, my recommendation is to continue current management. No need for further ischemic workup. If the patient is stable, she can be discharged home whenever it is okay with the managing team. I will see her on a p.r.n. basis. MD GUSTAVO Jose , 11:30 PM , 11:40 PM
[2017-12-13] MEDS: Insulin NovoLOG Aspart Correctional Sugar Inj SQ SCH ×5 (00:19→23:04)
[2017-12-13] MEDS: Oral Hygiene Kit OROPHARYNG SCH ×5 (00:20→23:05)
[2017-12-13] MEDS: Azithromycin Inj 500 MG in Sodium Chlor 0.9% Inj 250 ML IV.SIG SCH (00:21)
[2017-12-13] MEDS: Morphine Sulfate 60 MG SR Tablet PO SCH ×3 (01:41→18:00)
[2017-12-13 04:29] LABS: Calcium 7.8 mg/dL (8.5-10.1); Magnesium 2.3 mg/dL (1.5-2.5); Potassium 3.2 meq/L (3.5-5.1)
[2017-12-13] MEDS: oxyCODONE/Acetaminophen 10/325 Tablet PO PRN ×3 (05:24→20:57)
[2017-12-13] MEDS: Potassium Chloride 25 MEQ Effervescent Tablet PO PRN (05:24)
[2017-12-13] MEDS: Potassium Chlor 20 mEq Premix 20 MEQ/100 ML PIGGYBACK IV.SIG PRN (05:41)
--- NOTE | 2017-12-13 08:25 | P.PNCA ---
Subjective Interval history: Feeling good. Physical Exam Vital signs: Vital Signs 12/12/17 08:35 12/12/17 10:00 12/12/17 10:40 Temperature Pulse Rate 70 Respiratory Rate 20 Blood Pressure Pulse Oximetry 96 12/12/17 12:00 12/12/17 14:00 12/12/17 16:00 Temperature 98.1 F 98.3 F Pulse Rate 68 70 68 Respiratory Rate 20 18 Blood Pressure 110/68 104/66 Pulse Oximetry 97 96 12/12/17 18:00 12/12/17 19:15 12/12/17 20:00 Temperature 98.7 F Pulse Rate 68 80 Respiratory Rate 20 22 Blood Pressure 115/60 Pulse Oximetry 95 12/12/17 22:44 12/13/17 00:00 12/13/17 00:23 Temperature 98.5 F Pulse Rate 72 Respiratory Rate 20 17 16 Blood Pressure 103/57 L Pulse Oximetry 94 L 12/13/17 04:00 12/13/17 08:00 12/13/17 08:11 Temperature 98.5 F 98.3 F Pulse Rate 72 73 Respiratory Rate 14 22 Blood Pressure 111/58 L 118/69 Pulse Oximetry 96 95 97 Intake & Output 12/12/17 12/13/17 12/13/17 18:59 06:59 18:59 Intake Total 2170 / 2170 830 / 830 Output Total 650 / 650 350 / 350 Balance 1520 / 1520 480 / 480 Weight 177 lb 7.554 oz Intake: IV 1450 / 1450 350 / 350 Diprivan 1000 mg/100 ml Inj 1, 0 / 0 000 mg In 100 ml @ 5 MCG/KG/MIN 2.109 mls/hr IV.CONT TITRATE PRN Rx#:[id number] NS Inj 1,000 ML @ 84 mls/hr IV. 1000 / 1000 CONT .[id number] RICHELLE Rx#:[id number] Azithromycin Inj 500 MG In NS 250 / 250 250 / 250 Inj 250 ML @ 250 mls/hr IV.SIG Q24H RICHELLE Rx#:[id number] Rocephin Inj 1,000 MG In NS Inj 200 / 200 100 / 100 100 ML @ 200 mls/hr IV.SIG Q12H RICHELLE Rx#:[id number] Oral 720 / 720 480 / 480 Output: Urine 650 / 650 Urine Amount (Catheter) 350 / 350 Female External 350 / 350 Other: # Voids 1 Date of Last Bowel Movement 12/12/17 12/12/17 12/12/17 # Bowel Movements 1 Narrative: GENERAL: Elderly female lying in bed in no acute distress. SKIN: Warm and dry. HEAD: Atraumatic. Normocephalic. EYES: Pupils equal and round. No scleral icterus. No injection or drainage. ENT: No nasal bleeding or discharge. Mucous membranes pink and moist. NECK: Trachea midline. No JVD. CARDIOVASCULAR: Regular rate and rhythm. RESPIRATORY: No accessory muscle use. Clear to auscultation. Breath sounds equal bilaterally. GASTROINTESTINAL: Abdomen soft, non-tender, nondistended. Hepatic and splenic margins not palpable. MUSCULOSKELETAL: Extremities without clubbing, cyanosis, or edema. No obvious deformities. NEUROLOGICAL: Awake and alert. No obvious cranial nerve deficits. Motor grossly within normal limits. Five out of 5 muscle strength in the arms and legs. Normal speech. PSYCHIATRIC: Appropriate mood and affect; insight and judgment normal. - Urinary Catheter Management Indwelling Urethral Catheter Cath placed during this visit: yes Reason for continuing: Hourly intake/output Insertion date: 12/06/17 Insertion time: 23:21 Female External Cath placed during this visit: no Assessment and Plan - Assessment (1) Paroxysmal atrial fibrillation Code(s): I48.0 - Paroxysmal atrial fibrillation Status: Chronic - Plan No intervention planned at this time. [place] to be SVT with aberrancy. Follow- up with Dr. Hernandez in 2 weeks per my discussion with him. Can be discharged at the discretion of the primary managing team.
[2017-12-13] MEDS: Ranolazine 500 MG 12HR ER Tablet PO SCH ×2 (10:00→20:58)
[2017-12-13] MEDS: Chlorhexidine 0.12% Oral Kit 15 ML UDC OROPHARYNG SCH ×2 (10:00→20:56)
[2017-12-13] MEDS: Furosemide 40 MG Tablet PO SCH (10:01)
[2017-12-13] MEDS: Famotidine 20 MG Tablet PO SCH (10:01)
[2017-12-13] MEDS: predniSONE 20 MG Tablet PO SCH (10:01)
[2017-12-13] MEDS: Sucralfate 1 GM Tablet PO SCH ×2 (10:01→21:00)
[2017-12-13] MEDS: Isosorbide Mononitrate 60 MG ER 24HR Tablet (Imdur) PO SCH (10:01)
[2017-12-13] MEDS: amLODIPine 5 MG Tablet PO SCH (10:01)
[2017-12-13] MEDS: Senna/Docusate Sodium 8.6/50 MG Tablet PO SCH ×2 (10:02→21:00)
[2017-12-13] MEDS: Famotidine PF Inj 20 MG/2 ML Vial IV.PUSH SCH ×2 (10:02→20:58)
[2017-12-13] MEDS: guaiFENesin 600 MG ER Tablet PO SCH ×2 (10:02→20:56)
--- NOTE | 2017-12-13 13:39 | ECG ---
Date Performed: 12/12/2017 Time Performed: 20:19:12 PTAGE: 72 years EKG: Sinus rhythm ST DEVIATION AND MODERATE T-WAVE ABNORMALITY, CONSIDER LATERAL ISCHEMIA ABNORMAL ECG Since the PREVIOUS TRACING , no significant change noted PREVIOUS TRACIN12/10/2017 09.53 DOCTOR: Ben Tom Interpretating Date/Time 12/13/2017 13:38:22
--- NOTE | 2017-12-13 13:45 | P.PNIM ---
Subjective Interval history: The pt was feeling well. She was transferred to the [facility]. She thinks she'll be able to go home tomorrow. She says she is on home oxygen as needed. Discussed with nursing at the bedside. Physical Exam Vital signs: Vital Signs 12/12/17 14:00 12/12/17 16:00 12/12/17 18:00 Temperature 98.3 F Pulse Rate 70 68 68 Respiratory Rate 18 Blood Pressure 104/66 Pulse Oximetry 96 12/12/17 19:15 12/12/17 20:00 12/12/17 22:44 Temperature 98.7 F Pulse Rate 80 Respiratory Rate 20 22 20 Blood Pressure 115/60 Pulse Oximetry 95 12/13/17 00:00 12/13/17 00:23 12/13/17 04:00 Temperature 98.5 F 98.5 F Pulse Rate 72 72 Respiratory Rate 17 16 14 Blood Pressure 103/57 L 111/58 L Pulse Oximetry 94 L 96 12/13/17 08:00 12/13/17 08:11 12/13/17 10:00 Temperature 98.3 F Pulse Rate 73 76 Respiratory Rate 22 Blood Pressure 118/69 Pulse Oximetry 95 97 12/13/17 13:07 Temperature Pulse Rate Respiratory Rate 22 Blood Pressure Pulse Oximetry Intake & Output 12/12/17 12/13/17 12/13/17 18:59 06:59 18:59 Intake Total 2170 / 2170 830 / 830 580 / 580 Output Total 650 / 650 350 / 350 300 / 300 Balance 1520 / 1520 480 / 480 280 / 280 Weight 80.5 kg Intake: IV 1450 / 1450 350 / 350 100 / 100 Diprivan 1000 mg/100 ml Inj 1, 0 / 0 000 mg In 100 ml @ 5 MCG/KG/MIN 2.109 mls/hr IV.CONT TITRATE PRN Rx#:[id number] NS Inj 1,000 ML @ 84 mls/hr IV. 1000 / 1000 CONT .[id number] RICHELLE Rx#:[id number] Azithromycin Inj 500 MG In NS 250 / 250 250 / 250 Inj 250 ML @ 250 mls/hr IV.SIG Q24H RICHELLE Rx#:[id number] KCl 20 mEq Premix Inj 20 meq In 100 / 100 100 ml @ 50 mls/hr IV.SIG Q2H PRN Rx#:[id number] Rocephin Inj 1,000 MG In NS Inj 200 / 200 100 / 100 100 ML @ 200 mls/hr IV.SIG Q12H RICHELLE Rx#:[id number] Oral 720 / 720 480 / 480 480 / 480 Output: Urine 650 / 650 Urine Amount (Catheter) 350 / 350 300 / 300 Female External 350 / 350 300 / 300 Other: # Voids 1 Date of Last Bowel Movement 12/12/17 12/12/17 12/12/17 # Bowel Movements 1 0 Narrative: GENERAL: Resting comfortably. HEAD: Atraumatic. Normocephalic. EYES: Pupils equal and round. No scleral icterus. No injection or drainage. ENT: No nasal bleeding or discharge. Mucous membranes pink and moist. NECK: Trachea midline. No JVD. CARDIOVASCULAR: Regular rate and rhythm. No murmur appreciated. RESPIRATORY: Crackles at the bases. GASTROINTESTINAL: Abdomen soft, non-tender, nondistended. Hepatic and splenic margins not palpable. MUSCULOSKELETAL: No obvious deformities. No clubbing. No cyanosis. No edema. NEUROLOGICAL: No gross deficits. - Urinary Catheter Management Indwelling Urethral Catheter Cath placed during this visit: yes Reason for continuing: Hourly intake/output Insertion date: 12/06/17 Insertion time: 23:21 Female External Cath placed during this visit: no Results - Labs CBC & Chem 7: 12/11/17 05:55 12/13/17 03:21 Laboratory Results - last 24 hr 12/12/17 12/13/17 12/13/17 19:27 00:13 03:21 Sodium 142 Potassium 3.2 L Chloride 104 Carbon Dioxide 30.0 Anion Gap 8 BUN 14 Creatinine 0.66 Estimated GFR 88 L POC Glucose 133 H 285 H Random Glucose 180 H Calcium 7.8 L D Magnesium 2.3 12/13/17 12/13/17 05:17 12:39 Sodium Potassium Chloride Carbon Dioxide Anion Gap BUN Creatinine Estimated GFR POC Glucose 198 H 172 H Random Glucose Calcium Magnesium Microbiology 12/07/17 02:30 Blood - Peripheral Aerobic Blood Culture - Final No growth in 5 days 12/07/17 02:30 Blood - Peripheral Anaerobic Blood Culture - Final No growth in 5 days 12/07/17 02:25 Blood - Peripheral Aerobic Blood Culture - Final No growth in 5 days 12/07/17 02:25 Blood - Peripheral Anaerobic Blood Culture - Final No growth in 5 days Assessment and Plan - Plan Respiratory failure/ COPD exacerbation/ Acute on chronic systolic CHF exacerbation The pt has been extubated and is breathing comfortably on nasal cannula. -continue Lasix. -oxygen as needed. -DuoNeb scheduled and as needed. -switched Solumedrol to prednisone. -repeat CXR pending. Resume antibiotics if persistent airspace disease. -palliative care consult appreciated. -IS, PT. NSTEMI The pt has a history of CAD and is currently having chest pain at times. Troponin is elevated. Cardiology consult appreciated. -continue cardiac regimen including ASA, statin, Ranexa, Imdur and Eliquis. The pt requests we discontinue metoprolol as she says she cannot tolerate it. -telemetry. -NTG and morphine as needed. -cardiology following. Cleared for discharge with outpt follow-up. May need an ablatio in the future. DM Improved. -wean steroids to prednisone daily. -sliding scale. -added Levemir HS. PPx: Kiara
--- NOTE | 2017-12-13 14:20 | XR ---
EXAM DATE: 12/13/2017 2:02 PM EDT AGE/SEX: 72 years / Female INDICATIONS: Shortness of breath. CLINICAL DATA: This is the patient's subsequent encounter. Patient reports that signs and symptoms h ave been present for 3 days and indicates a pain score of 0/10. MEDICAL/SURGICAL HISTORY: Hypertension. Chronic obstructive pulmonary disease. Congestive hea rt failure. AFIB. Myocardial infarction. CABG. COMPARISON: [facility], CHEST 1V SINGLE AP, 12/10/2017. . FINDINGS: Postsurgical features of prior median sternotomy and cardiac surgery. Persistent linear parenchymal o pacities in the lower lung zones. Elevation of the left hemidiaphragm. Cardiomediastinal contours are stable. Remainder of the exam is unchanged. CONCLUSION: 1. No acute abnormality or significant interval change. Electronically signed by: Eddie Armstrong MD 12/13/2017 2:18 PM EDT
[2017-12-13] MEDS: Temazepam 15 MG Capsule PO PRN (21:45)
[2017-12-14] MEDS: Morphine Sulfate 60 MG SR Tablet PO SCH ×2 (03:12→09:56)
[2017-12-14] MEDS: Oral Hygiene Kit OROPHARYNG SCH ×2 (05:05→13:06)
[2017-12-14] MEDS: Insulin NovoLOG Aspart Correctional Sugar Inj SQ SCH ×2 (05:59→12:10)
[2017-12-14 07:10] LABS: Baso % (Auto) 0.3 % (0.0-2.0); Eos # (Auto) 0.6 th/mm3 (0.0-0.4); Eos % (Auto) 5.2 % (0.0-4.0); Hematocrit 37.4 % (35.0-46.0); Hemoglobin 12.6 gm/dL (11.6-15.3); Lymph # (Auto) 3.4 th/mm3 (1.0-4.8); Lymph % (Auto) 31.6 % (9.0-44.0); Mean Corpuscular HGB Conc 33.6 % (32.0-36.0); Mean Corpuscular Volume 86.2 fL (80.0-100.0); Mean Platelet Volume 7.9 fL (7.0-11.0); Mono # (Auto) 0.8 th/mm3 (0.0-0.9); Mono % (Auto) 7.4 % (0.0-8.0); Neut % (Auto) 55.5 % (16.0-70.0); Platelet Count 256 th/mm3 (150-450); Red Blood Count 4.34 mil/mm3 (4.00-5.30); Red Cell Distribution Width 16.2 % (11.6-17.2); White Blood Count 10.7 th/mm3 (4.0-11.0)
[2017-12-14 07:38] LABS: Calcium 8.2 mg/dL (8.5-10.1); Carbon Dioxide 31.4 meq/L (21.0-32.0); Potassium 3.4 meq/L (3.5-5.1)
[2017-12-14] MEDS: Isosorbide Mononitrate 60 MG ER 24HR Tablet (Imdur) PO SCH (08:45)
[2017-12-14] MEDS: Sucralfate 1 GM Tablet PO SCH (08:45)
[2017-12-14] MEDS: Ranolazine 500 MG 12HR ER Tablet PO SCH (08:46)
[2017-12-14] MEDS: guaiFENesin 600 MG ER Tablet PO SCH (08:48)
[2017-12-14] MEDS: Furosemide 40 MG Tablet PO SCH (08:49)
[2017-12-14] MEDS: amLODIPine 5 MG Tablet PO SCH (08:49)
[2017-12-14] MEDS: Famotidine 20 MG Tablet PO SCH (08:49)
[2017-12-14] MEDS: Famotidine PF Inj 20 MG/2 ML Vial IV.PUSH SCH (08:50)
[2017-12-14] MEDS: Senna/Docusate Sodium 8.6/50 MG Tablet PO SCH (08:50)
[2017-12-14] MEDS: Chlorhexidine 0.12% Oral Kit 15 ML UDC OROPHARYNG SCH (08:51)
[2017-12-14] MEDS ORDERED: predniSONE 20 MG Tablet PO SCH (09:00)
[2017-12-14] MEDS ORDERED: Potassium Bicarbonate 25 MEQ Effervescent Tablet PO ONE (10:30)
--- NOTE | 2017-12-14 12:33 | P.PNPAL ---
Reason for Visit Reason for visit: a. To assist with evaluation and management of symptoms including: Shortness of breath, pain, debility b. To assist medical decision maker(s) with: better understanding of current medical conditions; weighing benefits/burdens of medical treatment options; making medical treatment decisions. Subjective Subjective/Interval History: Follow-up medically necessary for symptom management. Patient seen and examined in [facility]. Seen by Cardiology on 12/12/17 for wide complex tachyarrhythmia, recommended continuing with current medical intervention with no further ischemic work up. Patient cleared by cardiology for discharge. Patient is in bed , alert, oriented to self, place and situation. Patient is currently on room air with no signs of respiratory distress. Patient currently denying pain or chest discomfort. Patient wants to go home. Chest x-ray on 12/13/17 showed no acute abnormality or significant interval change. Laboratory workup today revealing sodium 141, potassium 3.4, BUN/ creatinine 14/0.7, random glucose 104 and calcium 8.2. Case discussed with bedside RN. Advance Directives Living Will: Never completed Health Care Surrogate: Copy in medical record Durable Power of Bottle Blower: Never completed Health Care Surrogate Name and Number: Yohan Benjamin [phone] alt: Trisha Gorman [phone] Objective Vital Signs: Vital Signs 12/13/17 13:00 12/13/17 13:07 12/13/17 14:00 Temperature Pulse Rate 94 H 82 Respiratory Rate 22 Blood Pressure Pulse Oximetry 12/13/17 15:00 12/13/17 15:15 12/13/17 16:00 Temperature 99.2 F Pulse Rate 85 85 80 Respiratory Rate 16 Blood Pressure 124/77 Pulse Oximetry 96 12/13/17 17:00 12/13/17 18:00 12/13/17 19:00 Temperature Pulse Rate 82 82 86 Respiratory Rate Blood Pressure Pulse Oximetry 12/13/17 20:00 12/13/17 21:00 12/13/17 22:00 Temperature 98.4 F Pulse Rate 82 84 80 Respiratory Rate 19 Blood Pressure 118/73 Pulse Oximetry 95 12/13/17 22:11 12/13/17 23:00 12/13/17 23:05 Temperature 98.7 F Pulse Rate 82 96 H Respiratory Rate 17 19 Blood Pressure 130/69 Pulse Oximetry 96 12/14/17 00:00 12/14/17 01:00 12/14/17 02:00 Temperature Pulse Rate 81 74 72 Respiratory Rate Blood Pressure Pulse Oximetry 12/14/17 03:00 12/14/17 03:08 12/14/17 04:00 Temperature 97.9 F Pulse Rate 67 73 66 Respiratory Rate 18 Blood Pressure 110/66 Pulse Oximetry 96 12/14/17 05:00 12/14/17 06:00 12/14/17 07:00 Temperature 98.8 F Pulse Rate 70 72 79 Respiratory Rate 16 Blood Pressure 122/73 Pulse Oximetry 12/14/17 08:00 12/14/17 09:00 12/14/17 10:00 Temperature Pulse Rate 66 82 86 Respiratory Rate Blood Pressure Pulse Oximetry 97 12/14/17 10:39 Temperature Pulse Rate Respiratory Rate Blood Pressure Pulse Oximetry 94 L Intake & Output 12/13/17 12/14/17 12/14/17 18:59 06:59 18:59 Intake Total 1700 / 1700 610 / 610 Output Total 1300 / 1300 Balance 400 / 400 610 / 610 Weight 77 kg Intake: IV 100 / 100 KCl 20 mEq Premix Inj 20 meq In 100 / 100 100 ml @ 50 mls/hr IV.SIG Q2H PRN Rx#:[id number] Oral 1600 / 1600 610 / 610 Output: Urine 1000 / 1000 Urine Amount (Catheter) 300 / 300 Female External 300 / 300 Other: # Voids 4 Date of Last Bowel Movement 12/12/17 12/12/17 # Bowel Movements 0 Physical Exam: CONSTITUTIONAL/GENERAL: This is an adequately nourished patient, in no apparent distress. TUBES/LINES/DRAINS: PIV SKIN: No jaundice, rashes, or lesions. Ecchymoses on upper extremities. No wounds seen anteriorly. Normothermic HEAD: Atraumatic. Normocephalic. EYES: PERRLA. No scleral icterus. No injection or drainage. Fundi not examined. ENT: Hearing grossly normal. Nose without bleeding or purulent drainage. Moist oral mucosa CARDIOVASCULAR: Regular rate and rhythm without murmurs, gallops, or rubs. No JVD. Peripheral pulses symmetric. RESPIRATORY/CHEST: Symmetric, unlabored respirations. Lungs clear to auscultation. No wheezes, rales, or rhonchi. GASTROINTESTINAL: Abdomen soft, non-tender, nondistended. Positive bowel sounds NEUROLOGICAL: Ambulates and oriented to self, place and situation. Follows commands with all 4 extremities. PSYCHIATRIC: No obvious anxiety/depression. no apparent hallucinations or other psychotic thought process. Diagnostic Tests Laboratory: Laboratory Results - last 72 hr 12/11/17 12/11/17 12/12/17 13:23 19:22 00:05 WBC RBC Hgb Hct MCV MCH MCHC RDW Plt Count MPV Neut % (Auto) Lymph % (Auto) [place] % (Auto) Eos % (Auto) Baso % (Auto) Neut # (Auto) Lymph # (Auto) [place] # (Auto) Eos # (Auto) Baso # (Auto) WBC Differential Differential Comment Sodium Potassium Chloride Carbon Dioxide Anion Gap BUN Creatinine Estimated GFR POC Glucose 289 H 205 H 132 H Random Glucose Calcium Magnesium 12/12/17 12/12/17 12/12/17 06:45 12:03 19:27 WBC RBC Hgb Hct MCV MCH MCHC RDW Plt Count MPV Neut % (Auto) Lymph % (Auto) [place] % (Auto) Eos % (Auto) Baso % (Auto) Neut # (Auto) Lymph # (Auto) [place] # (Auto) Eos # (Auto) Baso # (Auto) WBC Differential Differential Comment Sodium Potassium Chloride Carbon Dioxide Anion Gap BUN Creatinine Estimated GFR POC Glucose 140 H 184 H 133 H Random Glucose Calcium Magnesium 12/13/17 12/13/17 12/13/17 00:13 03:21 05:17 WBC RBC Hgb Hct MCV MCH MCHC RDW Plt Count MPV Neut % (Auto) Lymph % (Auto) [place] % (Auto) Eos % (Auto) Baso % (Auto) Neut # (Auto) Lymph # (Auto) [place] # (Auto) Eos # (Auto) Baso # (Auto) WBC Differential Differential Comment Sodium 142 Potassium 3.2 L Chloride 104 Carbon Dioxide 30.0 Anion Gap 8 BUN 14 Creatinine 0.66 Estimated GFR 88 L POC Glucose 285 H 198 H Random Glucose 180 H Calcium 7.8 L D Magnesium 2.3 12/13/17 12/13/17 12/13/17 12:39 17:30 23:03 WBC RBC Hgb Hct MCV MCH MCHC RDW Plt Count MPV Neut % (Auto) Lymph % (Auto) [place] % (Auto) Eos % (Auto) Baso % (Auto) Neut # (Auto) Lymph # (Auto) [place] # (Auto) Eos # (Auto) Baso # (Auto) WBC Differential Differential Comment Sodium Potassium Chloride Carbon Dioxide Anion Gap BUN Creatinine Estimated GFR POC Glucose 172 H 377 H 165 H Random Glucose Calcium Magnesium 12/14/17 12/14/17 12/14/17 05:56 06:49 06:49 WBC 10.7 RBC 4.34 Hgb 12.6 Hct 37.4 MCV 86.2 MCH 29.0 MCHC 33.6 RDW 16.2 Plt Count 256 MPV 7.9 Neut % (Auto) 55.5 Lymph % (Auto) 31.6 Mingo % (Auto) 7.4 Eos % (Auto) 5.2 H Baso % (Auto) 0.3 Neut # (Auto) 6.0 Lymph # (Auto) 3.4 Mingo # (Auto) 0.8 Eos # (Auto) 0.6 H Baso # (Auto) 0.0 WBC Differential . Differential Comment Auto diff final Sodium 141 Potassium 3.4 L Chloride 104 Carbon Dioxide 31.4 Anion Gap 6 BUN 14 Creatinine 0.70 Estimated GFR 82 L POC Glucose 135 H Random Glucose 104 Calcium 8.2 L Magnesium 12/14/17 11:40 WBC RBC Hgb Hct MCV MCH MCHC RDW Plt Count MPV Neut % (Auto) Lymph % (Auto) [place] % (Auto) Eos % (Auto) Baso % (Auto) Neut # (Auto) Lymph # (Auto) [place]ingo # (Auto) Eos # (Auto) Baso # (Auto) WBC Differential Differential Comment Sodium Potassium Chloride Carbon Dioxide Anion Gap BUN Creatinine Estimated GFR POC Glucose 311 H Random Glucose Calcium Magnesium Result Diagrams: 12/14/17 06:49 12/14/17 06:49 Microbiology: Microbiology 12/07/17 02:30 Aerobic Blood Culture - Final Blood - Peripheral No growth in 5 days Anaerobic Blood Culture - Final No growth in 5 days 12/07/17 02:25 Aerobic Blood Culture - Final Blood - Peripheral No growth in 5 days Anaerobic Blood Culture - Final No growth in 5 days Imaging: Chest X-Ray 12/13/17 00:00 CONCLUSION: 1. No acute abnormality or significant interval change. Procedures: 12/06/17-endotracheal intubation 12/09/17-medically extubated Assessment and Plan - Disease Oriented Problem List (1) Respiratory failure (2) Non-ST elevation (NSTEMI) myocardial infarction (3) CHF exacerbation (4) CAD (coronary artery disease) (5) Hypertension - Symptom Scale (1) Shortness of breath 0-10 Scale: Unable to quantify Comment: History of CHF and COPD. (2) Debility 0-10 Scale: Unable to quantify Comment: Progressive. Multiple hospitalizations. (3) Pain Comment: Complains of chest pain. Pertinent Non-Medical Issues: Psychosocial: Patient was born and raised in [place]. She moved to [place] 32 years ago. 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 Patient has been twice and she has been for 26 years to her current Yohan Benjamin. Patient has 2 adult children, a daughter Malorie Vizcaino who resides in [place] and son Binh Espana who lives locally. Patient`s son has had traumatic brain injury. Spiritual:Patient is Taoism- declined machinist/machine builder or massage therapist visits. Legal:Complted and signed [facility] form today 12/10/17 Ethical issues impacting care: None identified at this time Important Contacts: Spouse-[facility]- Sourav Apollo [phone] / [phone] Friend-[facility]- Trisha Gorman- [phone] Prognosis: is a 72-year-old female with an extensive cardiac medical history inclusive of myocardial infarction 3, coronary artery disease, CABG bypass 5 vessels, congestive heart failure, chronic obstructive pulmonary disease oxygen dependent, tobacco use, pneumonia, hypertension, hypothyroidism, diabetes mellitus, and hypercholesterolemia. Patient was brought to the emergency room on 12/07/17 via EMS with complaints of shortness of breath for a day prior to coming to the ER. Patient's O2 saturation was 67% on BiPAP at time of arrival. Clinical course complicated with shortness of breath requiring intubation, elevated cardiac enzymes. Given patient's ongoing multiple comorbidities, patient remains at high risk for further deterioration and decline. Code Status: Full Code Plan: PLAN: Legal decision maker: Patient is currently able to participate in making his own medical decisions. In the event that she is not capacitated she designated he Sourav Almanzar as a healthcare surrogate and dear friend Trisha Cardenas is here alternate healthcare surrogate. Goals: Remain aggressive-patient looking forward to be discharged home today. Cleared by cardiology for discharge. Awaiting to be medically discharged. CODE STATUS: Full code SYMPTOMS: * Shortness of breath: Patient has history of CHF and COPD. Came in complaining of shortness of breath. Patient was intubated for 4 days. Patient was extubated 12/10/17 to O2 2 L nasal cannula. Patient managed with diuretics and bronchodilators.Currently on RA, with no signs of respiratory distress. Resolved. * Pain: Patient complaining of intermittent chest pain. Patient describes it as coming and going with no need for Nitropaste. Pain also controlled with morphine sulfate 60 mg every 8 hours [id number]. Patient is also on hydromorphone 1 mg IVP q 4 hrs. Last used Hydromorphone on 12/11. Currently denying pain. * Debility: Progressive. Patient has an extensive cardiac history and COPD on home oxygen prn per patient. She has had 3 hospitalizations for cardiac related issues and COPD exacerbation. With patient's multiple comorbidities she will most likely continue to have complications due to his extensive cardiac history and COPD. PT recommended discharge home with home health PT. Palliative care will continue to follow the patient during hospital course as condition evolves, to assist patient/decision-maker with understanding of their medical conditions, weighing benefits/burdens of treatment options, for clarification of goals of treatment. Additionally will assist with any symptoms of palliative concern Attestation Attestation: To help prompt me to consider important information that might be impacting today's encounter and assessment, information from prior notes written by myself or my colleagues may have been "brought forward" into today's note. My signature on this note, however, is an attestation that I personally performed the exam, history, and/or decision-making noted today, and, unless otherwise indicated, the interactions with patient, family, and staff as well as the review of records all occurred today. I also attest that the listed assessment and stated plan reflect my best clinical judgment today based on the combination of historical information, prior notes, and today's exam/ interactions. When time spent is documented, it refers only to time spent today by the signer, or if indicated, combined time spent today by collaborating physician/nurse practitioner.
--- NOTE | 2017-12-14 15:22 | P.PNIM ---
Subjective Interval history: Breathing better wants to go home Discussed with RN and patient and case management We will try to set up home health care if she will allow it We will replace her potassium Patient can be discharged home today Physical Exam Vital signs: Vital Signs 12/13/17 16:00 12/13/17 17:00 12/13/17 18:00 Temperature Pulse Rate 80 82 82 Respiratory Rate Blood Pressure Pulse Oximetry 12/13/17 19:00 12/13/17 20:00 12/13/17 21:00 Temperature 98.4 F Pulse Rate 86 82 84 Respiratory Rate 19 Blood Pressure 118/73 Pulse Oximetry 95 12/13/17 22:00 12/13/17 22:11 12/13/17 23:00 Temperature Pulse Rate 80 82 Respiratory Rate 17 Blood Pressure Pulse Oximetry 12/13/17 23:05 12/14/17 00:00 12/14/17 01:00 Temperature 98.7 F Pulse Rate 96 H 81 74 Respiratory Rate 19 Blood Pressure 130/69 Pulse Oximetry 96 12/14/17 02:00 12/14/17 03:00 12/14/17 03:08 Temperature 97.9 F Pulse Rate 72 67 73 Respiratory Rate 18 Blood Pressure 110/66 Pulse Oximetry 96 12/14/17 04:00 12/14/17 05:00 12/14/17 06:00 Temperature Pulse Rate 66 70 72 Respiratory Rate Blood Pressure Pulse Oximetry 12/14/17 07:00 12/14/17 08:00 12/14/17 09:00 Temperature 98.8 F Pulse Rate 79 66 82 Respiratory Rate 16 Blood Pressure 122/73 Pulse Oximetry 97 12/14/17 10:00 12/14/17 10:39 12/14/17 11:00 Temperature 98.5 F Pulse Rate 86 78 Respiratory Rate 16 Blood Pressure 102/62 Pulse Oximetry 94 L 12/14/17 12:00 12/14/17 13:00 12/14/17 14:00 Temperature Pulse Rate 64 84 86 Respiratory Rate Blood Pressure Pulse Oximetry Intake & Output 12/13/17 12/14/17 12/14/17 18:59 06:59 18:59 Intake Total 1700 / 1700 610 / 610 Output Total 1300 / 1300 Balance 400 / 400 610 / 610 Weight 77 kg Intake: IV 100 / 100 KCl 20 mEq Premix Inj 20 meq In 100 / 100 100 ml @ 50 mls/hr IV.SIG Q2H PRN Rx#:[id number] Oral 1600 / 1600 610 / 610 Output: Urine 1000 / 1000 Urine Amount (Catheter) 300 / 300 Female External 300 / 300 Other: # Voids 4 Date of Last Bowel Movement 12/12/17 12/12/17 # Bowel Movements 0 Narrative: GENERAL: Resting comfortably. HEAD: Atraumatic. Normocephalic. EYES: Pupils equal and round. No scleral icterus. No injection or drainage. ENT: No nasal bleeding or discharge. Mucous membranes pink and moist. NECK: Trachea midline. No JVD. CARDIOVASCULAR: Regular rate and rhythm. No murmur appreciated. RESPIRATORY: Crackles at the bases. GASTROINTESTINAL: Abdomen soft, non-tender, nondistended. Hepatic and splenic margins not palpable. MUSCULOSKELETAL: No obvious deformities. No clubbing. No cyanosis. No edema. NEUROLOGICAL: No gross deficits. - Urinary Catheter Management Indwelling Urethral Catheter Cath placed during this visit: yes Reason for continuing: Hourly intake/output Insertion date: 12/06/17 Insertion time: 23:21 Female External Cath placed during this visit: no Results - Labs CBC & Chem 7: 12/14/17 06:49 12/14/17 06:49 Laboratory Results - last 24 hr 12/13/17 12/13/17 12/14/17 17:30 23:03 05:56 WBC RBC Hgb Hct MCV MCH MCHC RDW Plt Count MPV Neut % (Auto) Lymph % (Auto) [place] % (Auto) Eos % (Auto) Baso % (Auto) Neut # (Auto) Lymph # (Auto) [place] # (Auto) Eos # (Auto) Baso # (Auto) WBC Differential Differential Comment Sodium Potassium Chloride Carbon Dioxide Anion Gap BUN Creatinine Estimated GFR POC Glucose 377 H 165 H 135 H Random Glucose Calcium 12/14/17 12/14/17 12/14/17 06:49 06:49 11:40 WBC 10.7 RBC 4.34 Hgb 12.6 Hct 37.4 MCV 86.2 MCH 29.0 MCHC 33.6 RDW 16.2 Plt Count 256 MPV 7.9 Neut % (Auto) 55.5 Lymph % (Auto) 31.6 Placer % (Auto) 7.4 Eos % (Auto) 5.2 H Baso % (Auto) 0.3 Neut # (Auto) 6.0 Lymph # (Auto) 3.4 Placer # (Auto) 0.8 Eos # (Auto) 0.6 H Baso # (Auto) 0.0 WBC Differential . Differential Comment Auto diff final Sodium 141 Potassium 3.4 L Chloride 104 Carbon Dioxide 31.4 Anion Gap 6 BUN 14 Creatinine 0.70 Estimated GFR 82 L POC Glucose 311 H Random Glucose 104 Calcium 8.2 L - Imaging Impressions Chest X-Ray 12/13/17 00:00 CONCLUSION: 1. No acute abnormality or significant interval change. Assessment and Plan - Plan Respiratory failure/ COPD exacerbation/ Acute on chronic systolic CHF exacerbation The pt has been extubated and is breathing comfortably on nasal cannula. -continue Lasix. -oxygen as needed. -DuoNeb scheduled and as needed. -switched Solumedrol to prednisone. -repeat CXR pending. Resume antibiotics if persistent airspace disease. -palliative care consult appreciated. -IS, PT. NSTEMI The pt has a history of CAD and is currently having chest pain at times. Troponin is elevated. Cardiology consult appreciated. -continue cardiac regimen including ASA, statin, Ranexa, Imdur and Eliquis. The pt requests we discontinue metoprolol as she says she cannot tolerate it. -telemetry. -NTG and morphine as needed. -cardiology following. Cleared for discharge with outpt follow-up. May need an ablatio in the future. DM Improved. -wean steroids to prednisone daily. -sliding scale. -added Levemir HS. PPx: Eliquis Code Status: Full code Discussed Condition With: RN and patient and case management Discharge Planning: DC to home today
--- NOTE | 2017-12-14 15:26 | P.DCO ---
- Diagnosis (2) CHF (congestive heart failure) (11) Hypertension - Physical Therapy Order: Evaluate and treat, Improve ambulation, Strength and gait training - Occupational Therapy Order: Evaluate and treat, Improve ADL, Gross motor coordination - Home Health Nursing Order: Medical education, Signs/symptoms of disease process, Diabetic education , CHF education, Medication education-adverse effect, Wound care and dressing changes - Home Health Aide Order: To assist in: Bathing and personal care, produce team member and meal prep - Certification I have seen patient Olive Small on 12/14/17. My clinical findings support the need for the requested home health care services because: Limited mobility due to disease progression, Patient has SOB, Deconditioned with increased weakness, Medication compliance is questionable I certify that my clinical findings support that this patient is homebound because: Hx COPD - exertion dyspnea/weakness, Need for psychosocial assistance (2) CHF (congestive heart failure) Qualifiers: Heart failure type: unspecified Heart failure chronicity: unspecified Qualified Code(s): I50.9 - Heart failure, unspecified (11) Hypertension Qualifiers: Hypertension type: essential hypertension Qualified Code(s): I10 - Essential (primary) hypertension
--- NOTE | 2017-12-14 15:57 | P.DS ---
Date of admission: 12/07/17 01:13 Primary care physician: Yohan Davison MD Attending physician on discharge: Bart Radford Anticipated date of discharge: 12/14/17 Brief History from admission: Patient is a 72-year-old female presents with short of breath. She initially arrived via EMS on the BiPAP with oxygenation of 67. She did quit smoking about 2 weeks ago. She has significant history of coronary artery disease with non-STEMI and CHF per chart documentation. In the emergency department she continued to be severely hypoxemic with severe respiratory distress and was intubated by ED attending. DS: Diagnosis - Discharge Diagnosis (1) CAD (coronary artery disease) Status: Chronic (2) CHF (congestive heart failure) Status: Chronic (3) CHF exacerbation Status: Acute (4) COPD (chronic obstructive pulmonary disease) Status: Chronic (5) Debility Status: Chronic (6) Diabetes Status: Chronic (7) Dysrhythmia, cardiac Status: Chronic (8) Hypertension Status: Chronic (9) Non-ST elevation (NSTEMI) myocardial infarction Status: Acute (10) Shortness of breath Status: Chronic (11) Hypertension Status: Chronic (12) Paroxysmal atrial fibrillation Status: Chronic DS: Medications - Discharge Medications Prescriptions: amlodipine 5 mg PO DAILY #30 tab apixaban [Eliquis] 5 mg PO BID #60 tab aspirin [Aspirin Low Dose] 81 mg PO DAILY #30 tab atorvastatin 10 mg PO DAILY #30 tab enalapril maleate 5 mg PO DAILY #30 tab famotidine [Pepcid] 20 mg PO DAILY #30 tab furosemide [Lasix] 40 mg PO DAILY #30 tab guaifenesin 1,200 mg PO Q12H #120 tab ipratropium-albuterol 1 amp NEB Q2HR NEB PRN #120 amp PRN Reason: Wheezing isosorbide mononitrate 120 mg PO DAILY #60 tab magnesium oxide 800 mg PO DAILY #60 tab metformin 500 mg PO BID #60 tab nitroglycerin 0.4 mg SUBLINGUAL Q5-15M PRN #100 tab PRN Reason: Chest Pain ondansetron [Zofran ODT] 8 mg PO TID PRN #90 tab PRN Reason: Nausea And Vomiting pantoprazole 40 mg PO DAILY #30 tab potassium chloride 20 meq PO DAILY #30 tab prednisone 20 mg PO DAILY #30 tab promethazine [Phenergan] 25 mg [place] Q6H PRN #30 supp PRN Reason: Nausea ranolazine [Ranexa] 1,000 mg PO Q12H #60 tab sennosides-docusate sodium [Senna Plus] 1 tab PO BID #60 tab sucralfate [Carafate] 2 g PO BID #120 g DS: Summary Hospital Course: Patient is a 72-year-old female presents with short of breath. She initially arrived via EMS on the BiPAP with oxygenation of 67. She did quit smoking about 2 weeks ago. She has significant history of coronary artery disease with non-STEMI and CHF per chart documentation. In the emergency department she continued to be severely hypoxemic with severe respiratory distress and was intubated by ED attending. Respiratory failure/ COPD exacerbation/ Acute on chronic systolic CHF exacerbation The pt has been extubated and is breathing comfortably on nasal cannula. -continue Lasix. -oxygen as needed. -DuoNeb scheduled and as needed. -switched Solumedrol to prednisone. -palliative care consult appreciated. -IS, PT. NSTEMI The pt has a history of CAD and is currently having chest pain at times. Troponin is elevated. Cardiology consult appreciated. -continue cardiac regimen including ASA, statin, Ranexa, Imdur and Eliquis. The pt requests we discontinue metoprolol as she says she cannot tolerate it. -telemetry. -NTG and morphine as needed. -cardiology following. Cleared for discharge with outpt follow-up. May need an ablatio in the future. DM Improved. -wean steroids to prednisone daily. -sliding scale. PPx: Eliquis - Time Spent with Patient Total time spent providing and/or coordinating discharge services: Greater than 30 minutes - Quality: VTE Deep Vein Thrombosis/Pulmonary Embolism Present on Admission: No Exam Vital signs: Vital Signs 12/13/17 16:00 12/13/17 17:00 12/13/17 18:00 Temperature Pulse Rate 80 82 82 Respiratory Rate Blood Pressure Pulse Oximetry 12/13/17 19:00 12/13/17 20:00 12/13/17 21:00 Temperature 98.4 F Pulse Rate 86 82 84 Respiratory Rate 19 Blood Pressure 118/73 Pulse Oximetry 95 12/13/17 22:00 12/13/17 22:11 12/13/17 23:00 Temperature Pulse Rate 80 82 Respiratory Rate 17 Blood Pressure Pulse Oximetry 12/13/17 23:05 12/14/17 00:00 12/14/17 01:00 Temperature 98.7 F Pulse Rate 96 H 81 74 Respiratory Rate 19 Blood Pressure 130/69 Pulse Oximetry 96 12/14/17 02:00 12/14/17 03:00 12/14/17 03:08 Temperature 97.9 F Pulse Rate 72 67 73 Respiratory Rate 18 Blood Pressure 110/66 Pulse Oximetry 96 12/14/17 04:00 12/14/17 05:00 12/14/17 06:00 Temperature Pulse Rate 66 70 72 Respiratory Rate Blood Pressure Pulse Oximetry 12/14/17 07:00 12/14/17 08:00 12/14/17 09:00 Temperature 98.8 F Pulse Rate 79 66 82 Respiratory Rate 16 Blood Pressure 122/73 Pulse Oximetry 97 12/14/17 10:00 12/14/17 10:39 12/14/17 11:00 Temperature 98.5 F Pulse Rate 86 78 Respiratory Rate 16 Blood Pressure 102/62 Pulse Oximetry 94 L 12/14/17 12:00 12/14/17 13:00 12/14/17 14:00 Temperature Pulse Rate 64 84 86 Respiratory Rate Blood Pressure Pulse Oximetry 12/14/17 15:00 Temperature 98.9 F Pulse Rate 85 Respiratory Rate 16 Blood Pressure 107/65 Pulse Oximetry Intake & Output 12/13/17 12/14/17 12/14/17 18:59 06:59 18:59 Intake Total 1700 / 1700 610 / 610 Output Total 1300 / 1300 Balance 400 / 400 610 / 610 Weight 77 kg Intake: IV 100 / 100 KCl 20 mEq Premix Inj 20 meq In 100 / 100 100 ml @ 50 mls/hr IV.SIG Q2H PRN Rx#:[id number] Oral 1600 / 1600 610 / 610 Output: Urine 1000 / 1000 Urine Amount (Catheter) 300 / 300 Female External 300 / 300 Other: # Voids 4 Date of Last Bowel Movement 12/12/17 12/12/17 # Bowel Movements 0 Narrative: GENERAL: Resting comfortably. HEAD: Atraumatic. Normocephalic. EYES: Pupils equal and round. No scleral icterus. No injection or drainage. ENT: No nasal bleeding or discharge. Mucous membranes pink and moist. NECK: Trachea midline. No JVD. CARDIOVASCULAR: Regular rate and rhythm. No murmur appreciated. RESPIRATORY: Crackles at the bases. GASTROINTESTINAL: Abdomen soft, non-tender, nondistended. Hepatic and splenic margins not palpable. MUSCULOSKELETAL: No obvious deformities. No clubbing. No cyanosis. No edema. NEUROLOGICAL: No gross deficits. Results Procedures completed during hospitalization: INTUBATION MECHANICAL VENTILATION Completed studies during hospitalization: Laboratory Results WBC 10.7 th/mm3 (4.0-11.0) 12/14/17 06:49 RBC 4.34 mil/mm3 (4.00-5.30) 12/14/17 06:49 Hgb 12.6 gm/dL (11.6-15.3) 12/14/17 06:49 Hct 37.4 % (35.0-46.0) 12/14/17 06:49 MCV 86.2 fL (80.0-100.0) 12/14/17 06:49 MCH 29.0 pg (27.0-34.0) 12/14/17 06:49 MCHC 33.6 % (32.0-36.0) 12/14/17 06:49 RDW 16.2 % (11.6-17.2) 12/14/17 06:49 Plt Count 256 th/mm3 (150-450) 12/14/17 06:49 MPV 7.9 fL (7.0-11.0) 12/14/17 06:49 Prelim Diff (Auto) Slide review pending 12/06/17 22:45 Neut % (Auto) 55.5 % (16.0-70.0) 12/14/17 06:49 Lymph % (Auto) 31.6 % (9.0-44.0) 12/14/17 06:49 Weber % (Auto) 7.4 % (0.0-8.0) 12/14/17 06:49 Eos % (Auto) 5.2 % (0.0-4.0) H 12/14/17 06:49 Baso % (Auto) 0.3 % (0.0-2.0) 12/14/17 06:49 Neut # (Auto) 6.0 th/mm3 (1.8-7.7) 12/14/17 06:49 Lymph # (Auto) 3.4 th/mm3 (1.0-4.8) 12/14/17 06:49 [place] # (Auto) 0.8 th/mm3 (0.0-0.9) 12/14/17 06:49 Eos # (Auto) 0.6 th/mm3 (0.0-0.4) H 12/14/17 06:49 Baso # (Auto) 0.0 th/mm3 (0.0-0.2) 12/14/17 06:49 WBC Differential . 12/14/17 06:49 Seg Neuts % (Manual) 45 % (16-70) 12/06/17 22:45 Band Neuts % (Manual) 3 % (0-6) 12/06/17 22:45 Lymphocytes % (Manual) 39 % (9-44) 12/06/17 22:45 Monocytes % (Manual) 3 % (0-8) 12/06/17 22:45 Eosinophils % (Manual) 8 % (0-4) H 12/06/17 22:45 Basophils % (Manual) 2 % (0-2) 12/06/17 22:45 Abs Neuts (Manual) 8.5 th/mm3 (1.8-7.7) H 12/06/17 22:45 Differential Comment Auto diff final 12/14/17 06:49 Platelet Estimate Normal (Normal) 12/06/17 22:45 Platelet Morphology Normal (Normal) 12/06/17 22:45 PT 10.9 sec (9.8-11.6) 12/08/17 04:26 INR 1.1 Ratio 12/08/17 04:26 APTT 26.6 sec (24.3-30.1) 12/08/17 04:26 Puncture Site Right radial 12/06/17 23:02 Patient Temperature 98.6 12/06/17 23:02 O2 Saturation 89 % (90-100) L* 12/06/17 23:02 ABG pH 7.25 (7.380-7.420) L* 12/06/17 23:02 ABG pCO2 57 mmHg (38-42) H* 12/06/17 23:02 ABG pO2 72 mmHg (61-120) 12/06/17 23:02 ABG HCO3 24 mmol/L (22-26) 12/06/17 23:02 ABG O2 Content 19.2 Vol % (12.0-20.0) 12/06/17 23:02 ABG Base Excess -2.2 mmol/L (-2-2) L 12/06/17 23:02 ABG Methemoglobin 0.6 % (0-2) 12/06/17 23:02 Tushar Test Present 12/06/17 23:02 Hemoglobin 15.3 G/DL (12.0-16.0) 12/06/17 23:02 Carboxyhemoglobin 1.3 % (0-4) 12/06/17 23:02 O2 Delivery Device Ventilator 12/06/17 23:02 Vent Setting Prvc/ac 12/06/17 23:02 Inspired O2 50 % 12/06/17 23:02 Critical Value Yes 12/06/17 23:02 Sodium 141 meq/L (136-145) 12/14/17 06:49 Potassium 3.4 meq/L (3.5-5.1) L 12/14/17 06:49 Chloride 104 meq/L (98-107) 12/14/17 06:49 Carbon Dioxide 31.4 meq/L (21.0-32.0) 12/14/17 06:49 Anion Gap 6 meq/L (5-15) 12/14/17 06:49 BUN 14 mg/dL (7-18) 12/14/17 06:49 Creatinine 0.70 mg/dL (0.50-1.00) 12/14/17 06:49 Estimated GFR 82 mL/min (>89) L 12/14/17 06:49 POC Glucose 311 mg/dl (68-110) H 12/14/17 11:40 Random Glucose 104 mg/dL (74-106) 12/14/17 06:49 Lactic Acid 2.6 mmol/L (0.4-2.0) H 12/07/17 02:30 Calcium 8.2 mg/dL (8.5-10.1) L 12/14/17 06:49 Phosphorus 3.3 mg/dL (2.5-4.9) 12/08/17 04:26 Magnesium 2.3 mg/dL (1.5-2.5) 12/13/17 03:21 Total Bilirubin 0.5 mg/dL (0.2-1.0) 12/10/17 04:52 AST 25 U/L (15-37) 12/10/17 04:52 ALT 12 U/L (10-53) 12/10/17 04:52 Alkaline Phosphatase 65 U/L (45-117) 12/10/17 04:52 Total Creatine Kinase 101 U/L (26-192) 12/06/17 22:45 Troponin I 1.99 ng/mL (0.02-0.05) H* D 12/10/17 11:34 B-Natriuretic Peptide 889 pg/mL (0-100) H 12/10/17 04:52 Total Protein 5.6 g/dL (6.4-8.2) L D 12/10/17 04:52 Albumin 2.8 g/dL (3.4-5.0) L 12/10/17 04:52 Urine Color Yellow (Yellw/Straw) 12/06/17 23:15 Urine Clarity Clear (Clear) 12/06/17 23:15 Urine pH 6.0 (5.0-8.5) 12/06/17 23:15 Ur Specific [place] 1.008 (1.002-1.035) 12/06/17 23:15 Urine Protein 30 mg/dL (Neg-Trace) H 12/06/17 23:15 Urine Glucose (UA) 50 mg/dL (Negative) 12/06/17 23:15 Urine Ketones Negative mg/dL (Negative) 12/06/17 23:15 Urine Occult Blood Negative (Negative) 12/06/17 23:15 Urine Nitrate Negative (Negative) 12/06/17 23:15 Urine Bilirubin Negative (Negative) 12/06/17 23:15 Urine Urobilinogen Less than 2 mg/dL (Less than 2) 12/06/17 23:15 Ur Leukocyte Esterase Negative (Negative) 12/06/17 23:15 Urine RBC 1 /hpf (0-3) 12/06/17 23:15 Urine WBC 1 /hpf (0-5) 12/06/17 23:15 Hyaline Casts 1 /lpf (0-3) 12/06/17 23:15 Urine Mucus Few /lpf (Occasional) H 12/06/17 23:15 Nasal Screen MRSA (PCR) Not detected (Negative) 12/07/17 03:05 Impressions Chest X-Ray 12/13/17 00:00 CONCLUSION: 1. No acute abnormality or significant interval change. Labs on day of discharge: Labs from last 24 hours 12/14/17 12/14/17 12/14/17 11:40 06:49 06:49 WBC 10.7 RBC 4.34 Hgb 12.6 Hct 37.4 MCV 86.2 MCH 29.0 MCHC 33.6 RDW 16.2 Plt Count 256 MPV 7.9 Neut % (Auto) 55.5 Lymph % (Auto) 31.6 Weber % (Auto) 7.4 Eos % (Auto) 5.2 H Baso % (Auto) 0.3 Neut # (Auto) 6.0 Lymph # (Auto) 3.4 [place] # (Auto) 0.8 Eos # (Auto) 0.6 H Baso # (Auto) 0.0 WBC Differential . Differential Comment Auto diff final Sodium 141 Potassium 3.4 L Chloride 104 Carbon Dioxide 31.4 Anion Gap 6 BUN 14 Creatinine 0.70 Estimated GFR 82 L POC Glucose 311 H Random Glucose 104 Calcium 8.2 L 12/14/17 12/13/17 12/13/17 05:56 23:03 17:30 WBC RBC Hgb Hct MCV MCH MCHC RDW Plt Count MPV Neut % (Auto) Lymph % (Auto) [place] % (Auto) Eos % (Auto) Baso % (Auto) Neut # (Auto) Lymph # (Auto) [place] # (Auto) Eos # (Auto) Baso # (Auto) WBC Differential Differential Comment Sodium Potassium Chloride Carbon Dioxide Anion Gap BUN Creatinine Estimated GFR POC Glucose 135 H 165 H 377 H Random Glucose Calcium - Impressions ITS Impressions Chest X-Ray 12/13/17 00:00 CONCLUSION: 1. No acute abnormality or significant interval change. Discharge Plan - Discharge Disposition Patient Disposition: W/Home Health Service - Discharge Condition Condition: Good - Discharge Order Discharge Orders: Discharge Order (Routine); Ordered 12/14/17 Ordered By: Bart Radford - Discharge Details Anticipated Discharge Date: 12/14/17 Discharge Comment: DC TO HOME WITH [facility] - Physicians Team Primary Care Provider: Yohan Davison Attending Provider: Bart Radford Other Providers: Alexandra Hall MD ; Kenneth Bales MD ; Torey Hernandez MD
== END 2017-12-14 16:41 | disposition home health service (06) ==
LOC: NEPC 22:13 → NEDA 12-07 01:13 → N03 12-07 02:52 → HCIS 12-13 10:55
PROVIDERS: ADMIT Hospitalist; ATTEND Hospitalist

== ENCOUNTER 2017-12-23 14:24 | Observation (INO) ==
--- NOTE | 2017-12-23 14:35 | ED ---
HPI General Chief Complaint: Weakness Stated Complaint: EVAC/Shaking,confused x 30 min ago Time Seen by Provider: 12/23/17 14:35 Source: patient and EMS Mode of arrival: EMS Limitations: altered mental status History of Present Illness HPI Narrative: 72-year-old female patient with history of CHF, hypertension, diabetes, presents to the ER today brought in by EMS because she has been dizzy , having tremors, was weak and unable to stand on her feet, having constant muscle spasms. She is mildly disoriented as well, but states that this morning she had some chest discomfort and shortness of breath as well. Apparently the patient had low blood pressures in her doctor had taken her off of her medications on Sunday. Modifying Factors: None Associated Signs & Symptoms: Dizziness, weakness, tremulousness Risk Factors: None Related Data Previous Rx's Medication Instructions Recorded nitroglycerin 0.4 mg SUBLINGUAL Q5-15M PRN #100 12/14/17 tab Allergies Allergy/AdvReac Type Severity Reaction Status Date / Time penicillin G Allergy Severe Anaphylaxis Verified 12/06/17 23:40 Review of Systems ROS Unobtainable ROS Unobtainable: unobtainable due to mental status PMFSH History History Provided By: Patient, Family Member and Medical Record Medical History Medical History Diabetes (Chronic) COPD (chronic obstructive pulmonary disease) (Chronic) CAD (coronary artery disease) (Chronic) Dysrhythmia, cardiac (Chronic) Hypertension (Chronic) CHF (congestive heart failure) (Chronic) Hiatal hernia (Acute) Pneumonia (Acute) Sleep apnea (Acute) Myocardial infarction (Resolved) Surgical History Surgical History History of appendectomy (Acute) H/O cardiac catheterization (Acute) History of dental surgery (Acute) History of thyroid surgery (Acute) Hx of CABG (Acute) Hx of cholecystectomy (Acute) Family History Family History Mother Heart disease Father Heart disease Brother Heart disease Sister Heart disease Stroke Social History Social History Substance History: No History of Abuse Second Hand Smoke Exposure: No Smoking Status: Former smoker Packs Per Day: 1 (Since age 15) Cigarettes Per Day: 20.0 How Often Do You Have a Drink Containing Alcohol: Never Recent Travel in [facility] within the Last 8 Weeks: No Recent Out of Country Travel within the Last 8 Weeks: No Exam Narrative Exam Narrative: GENERAL: Well-developed elderly white female patient currently in moderate distress, tremulous, awake but mildly disoriented. SKIN: Focused skin assessment warm/dry. HEAD: Atraumatic. Normocephalic. EYES: Pupils equal and round. No scleral icterus. No injection or drainage. ENT: No nasal bleeding or discharge. Mucous membranes pink and moist. NECK: Trachea midline. No JVD. CARDIOVASCULAR: Regular rate and rhythm. No murmur appreciated. RESPIRATORY: No accessory muscle use. Clear to auscultation. Breath sounds equal bilaterally. GASTROINTESTINAL: Abdomen soft, non-tender, nondistended. Hepatic and splenic margins not palpable. MUSCULOSKELETAL: No obvious deformities. No clubbing. No cyanosis. No edema. NEUROLOGICAL: Awake and alert. No obvious cranial nerve deficits. Bilateral leg weakness. Normal speech. Tremulous. [place]. PSYCHIATRIC: Appropriate mood and affect; insight and judgment normal. Course Initial Documented Vital Signs Temperature 98.6 F 12/23/17 14:33 Pulse Rate 65 12/23/17 14:33 Respiratory Rate 18 12/23/17 14:33 Blood Pressure 150/78 H 12/23/17 14:33 Pulse Oximetry 97 12/23/17 14:33 Last Documented Vital Signs Temperature 98.6 F 12/23/17 14:33 Pulse Rate 64 12/23/17 16:45 Respiratory Rate 20 12/23/17 16:45 Blood Pressure 102/59 L 12/23/17 16:45 Pulse Oximetry 98 12/23/17 16:45 Medical Decision Making MDM Narrative Medical decision making narrative: Lab work was fairly unremarkable. EKG did not show dysrhythmias. CT the brain and x-ray were fairly unremarkable of the chest. On reevaluation at 4 PM, patient is sitting up, reading the newspaper, states that he has subsided. The whole episode apparently lasted about 45 minutes. She denies any significant alcohol use. The patient's medication change was due to low blood pressures and the patient's doctor had taken her off of blood pressure medications on Sunday. She currently has a mildly low blood pressure on reevaluation at 4 PM and IV fluids were given. Patient was feeling fairly well, but after fluids, her blood pressure did not improve, and she was ambulated around the ER and within 20 feet started getting the cramping and weakness in her leg again and at this point, my plan would be to admit her for further treatment and evaluation. Case was discussed with Dr. Ramírez for admission. Differential Diagnosis Differential Diagnosis: Dehydration versus electrolyte abnormalities versus medication withdrawal Lab Data Lab results reviewed: Yes I reviewed the patient's lab results. Result diagrams: 12/23/17 14:35 12/23/17 14:35 Lab Results 12/23/17 12/23/17 12/23/17 Range/Units 14:35 14:35 14:41 CBC w Diff Auto diff final WBC 10.4 (4.0-11.0) th/mm3 RBC 4.17 (4.00-5.30) mil/mm3 Hgb 12.3 (11.6-15.3) gm/dL Hct 36.8 (35.0-46.0) % MCV 88.2 (80.0-100.0) fL MCH 29.5 (27.0-34.0) pg MCHC 33.5 (32.0-36.0) % RDW 15.2 (11.6-17.2) % Plt Count 234 (150-450) th/mm3 MPV 7.5 (7.0-11.0) fL Neut % (Auto) 70.3 H (16.0-70.0) % Lymph % (Auto) 19.1 (9.0-44.0) % [place] % (Auto) 6.5 (0.0-8.0) % Eos % (Auto) 1.9 (0.0-4.0) % Baso % (Auto) 2.2 H (0.0-2.0) % Neut # (Auto) 7.3 (1.8-7.7) th/mm3 Lymph # (Auto) 2.0 (1.0-4.8) th/mm3 [place] # (Auto) 0.7 (0.0-0.9) th/mm3 Eos # (Auto) 0.2 (0.0-0.4) th/mm3 Baso # (Auto) 0.2 (0.0-0.2) th/mm3 WBC Differential . Differential Comment . Sodium 139 (136-145) meq/L Potassium 4.2 (3.5-5.1) meq/L Chloride 104 (98-107) meq/L Carbon Dioxide 30.3 (21.0-32.0) meq/L Anion Gap 5 (5-15) meq/L BUN 7 (7-18) mg/dL Creatinine 0.68 (0.50-1.00) mg/dL Estimated GFR 85 L (>89) mL/min POC Glucose 145 H (68-110) mg/dl Random Glucose 140 H (74-106) mg/dL Calcium 8.6 (8.5-10.1) mg/dL Magnesium 2.5 (1.5-2.5) mg/dL Total Bilirubin 0.5 (0.2-1.0) mg/dL AST 12 L (15-37) U/L ALT 16 (10-53) U/L Alkaline Phosphatase 76 (45-117) U/L Total Protein 6.1 L (6.4-8.2) g/dL Albumin 3.1 L (3.4-5.0) g/dL Imaging Data Attestation: I personally reviewed and interpreted this imaging study as follows : Radiologist's impression: Chest X-Ray 12/23/17 14:29 CONCLUSION: No acute intrathoracic disease. No significant changes. Head CT 12/23/17 14:29 CONCLUSION: 1. Unremarkable CT scan of the brain. . ECG Data Attestation: I personally reviewed and interpreted this ECG as follows: Interpretation: EKG shows normal sinus rhythm at a rate of 64 bpm with no signs of acute ST elevations or depressions. Discharge Plan Discharge Disposition Patient Disposition: 30 Still Patient Discharge Condition Condition: Stable Discharge Details Anticipated Discharge Date: 12/23/17 Diagnosis: Dizziness, Hypotension Physicians Team ED Provider: Juan Ann Primary Care Provider: Yohan Davison Rxs /Orders / Referrals /Forms Prescriptions: No Action nitroglycerin 0.4 mg Tablet, Sublingual 0.4 mg SUBLINGUAL Q5-15M PRN (Reason: Chest Pain) Qty: 100 RF: 0 Discharge Interventions Interventions: Vital Signs Last Done: 12/23/17 16:45 Status ED Status: With Doctor
[2017-12-23 14:45] LABS: Baso # (Auto) 0.2 th/mm3 (0.0-0.2); Baso % (Auto) 2.2 % (0.0-2.0); Eos # (Auto) 0.2 th/mm3 (0.0-0.4); Eos % (Auto) 1.9 % (0.0-4.0); Hematocrit 36.8 % (35.0-46.0); Hemoglobin 12.3 gm/dL (11.6-15.3); Lymph % (Auto) 19.1 % (9.0-44.0); Mean Corpuscular HGB Conc 33.5 % (32.0-36.0); Mean Corpuscular Hemoglobin 29.5 pg (27.0-34.0); Mean Corpuscular Volume 88.2 fL (80.0-100.0); Mean Platelet Volume 7.5 fL (7.0-11.0); Mono # (Auto) 0.7 th/mm3 (0.0-0.9); Mono % (Auto) 6.5 % (0.0-8.0); Neut # (Auto) 7.3 th/mm3 (1.8-7.7); Neut % (Auto) 70.3 % (16.0-70.0); Platelet Count 234 th/mm3 (150-450); Red Blood Count 4.17 mil/mm3 (4.00-5.30); Red Cell Distribution Width 15.2 % (11.6-17.2); White Blood Count 10.4 th/mm3 (4.0-11.0)
[2017-12-23 14:54] LABS: Chloride 104 meq/L (98-107); Potassium 4.2 meq/L (3.5-5.1); Sodium 139 meq/L (136-145)
[2017-12-23 14:57] LABS: Albumin 3.1 g/dL (3.4-5.0); Anion Gap 5 meq/L (5-15); Blood Urea Nitrogen 7 mg/dL (7-18); Calcium 8.6 mg/dL (8.5-10.1); Carbon Dioxide 30.3 meq/L (21.0-32.0); Glucose,Random 140 mg/dL (74-106); Magnesium 2.5 mg/dL (1.5-2.5)
[2017-12-23 15:00] LABS: Alanine Aminotransferase 16 U/L (10-53); Aspartate Aminotransferase 12 U/L (15-37); Glomerular Filtration Rate 85 mL/min (>89)
[2017-12-23 15:02] LABS: Total Protein 6.1 g/dL (6.4-8.2)
[2017-12-23 15:03] LABS: Alkaline Phosphatase 76 U/L (45-117)
--- NOTE | 2017-12-23 15:15 | CT ---
EXAM DATE: 12/23/2017 3:04 PM EDT AGE/SEX: 72 years / Female INDICATIONS: Dizziness, short of breath and chest pain; sudden onset. CLINICAL DATA: This is the patient's initial encounter. Patient reports that signs and symptoms have been present for 1 day and indicates a pain score of 3/10. MEDICAL/SURGICAL HISTORY: Cardiovascular disease. Diabetes. Chronic obstructive pulmonary disease . Hypertension. CABG. Appendectomy. Cholecystectomy. RADIATION DOSE: 56.54 CTDI (mGy) COMPARISON: No prior exams available for comparison. TECHNIQUE: CT of the head without contrast. Using automated exposure control and adjustment of the mA and/or kV according to patient size, radiation dose was kept as low as reasonably achievable to ob tain optimal diagnostic quality images. DICOM format image data is available electronically for revi ew and comparison. FINDINGS: Cerebrum: The ventricles are normal for age. No evidence of midline shift, mass lesion, hemorrhage or acute infarction. No extraaxial fluid collections are seen. Posterior Fossa: The cerebellum and brainstem are intact. The 4th ventricle is midline. The cerebe llopontine angle is unremarkable. Extracranial: The visualized portion of the orbits is intact. Skull: The calvaria is intact. No evidence of skull fracture. CONCLUSION: 1. Unremarkable CT scan of the brain. . Electronically signed by: Jose Saez MD 12/23/2017 3:13 PM EDT
[2017-12-23] MEDS ORDERED: Sod Chloride 0.9% Inj 1,000 ML IV.SIG ONE (16:01)
--- NOTE | 2017-12-23 16:08 | XR ---
EXAM DATE: 12/23/2017 3:57 PM EDT AGE/SEX: 72 years / Female INDICATIONS: Short of breath today CLINICAL DATA: This is the patient's initial encounter. Patient reports that signs and symptoms have been present for 1 day and indicates a pain score of 0/10. MEDICAL/SURGICAL HISTORY: . Cardiovascular disease. Diabetes. Chronic obstructive pulmonary dis ease. Hypertension. . CABG. Appendectomy. Cholecystectomy. COMPARISON: [facility] [place] 1V SINGLE AP, 12/13/2017. . FINDINGS: A single AP view of the chest demonstrates the lungs to be symmetrically aerated without evidence of mass, infiltrate or effusion. There is some hyperaeration bilaterally with chronic interstitial walsh es. The cardiomediastinal contours are unremarkable. There is evidence of previous cardiothoracic dis ease. Osseous structures are intact. CONCLUSION: No acute intrathoracic disease. No significant changes. Electronically signed by: Jose Saez MD 12/23/2017 4:07 PM EDT
[2017-12-23] MEDS ORDERED: Bisacodyl 10 MG Supp RECTAL PRN (17:16)
[2017-12-23] MEDS ORDERED: Temazepam 15 MG Capsule PO PRN (17:16)
[2017-12-23] MEDS: Senna/Docusate Sodium 8.6/50 MG Tablet PO SCH (21:01)
[2017-12-23] MEDS: oxyCODONE/Acetaminophen 10/325 Tablet PO PRN (22:36)
[2017-12-24] MEDS: oxyCODONE/Acetaminophen 10/325 Tablet PO PRN (04:56)
[2017-12-24] MEDS: Senna/Docusate Sodium 8.6/50 MG Tablet PO SCH (08:54)
--- NOTE | 2017-12-24 08:54 | P.HP ---
History of Present Illness Primary Care Physician: Yohan Davison MD Chief Complaint: Weakness, muscle cramps, unable to ambulate History of Present Illness: [place] 72-year-old female with a past medical history significant for severe coronary artery disease, myocardial infarction, COPD, type 2 diabetes, presented to the hospital for evaluation of disorientation, profound weakness, difficulty ambulating, weakness, muscle cramps. Patient is very limited on information that she time. She is very agitated because she is usually on high doses of morphine 3 times a day at home. She indicates that she has not been given her medical at the dose that she usually takes and she is quite upset about that. However patient blood pressure, ambulation, mentation, is much improved since her not being on high doses of morphine. This was discussed with her that it could have caused her symptoms that brought her to the hospital. She completely denies this stating that she has been on the same medication for many years. Upon cleaning the ER documentation was indicated that she is having a difficult time with ambulation and muscle cramps in the legs. Because her blood pressure remained low it was recommended by the ER physician the patient be observed in the hospital for further evaluation and management. Workup in the emergency department was unremarkable for any acute finding that would cause her presenting symptoms. Denies any symptoms at this time. - Diagnosis (1) Muscle cramps (2) Impaired ambulation (3) Hypotension Review of Systems All other systems reviewed negative except as stated in HPI Constitutional: Reports weakness Musculoskeletal: Reports abnormal walking, Reports muscle cramps, Reports muscle weakness Neurologic: Reports dizziness PMFSH - History History Provided By: Patient - Medical History Medical History: Medical History (Last Reviewed 12/24/17 @ 08:49 by TITA Tolbert) Diabetes (Chronic) COPD (chronic obstructive pulmonary disease) (Chronic) CAD (coronary artery disease) (Chronic) Dysrhythmia, cardiac (Chronic) Hypertension (Chronic) CHF (congestive heart failure) (Chronic) Hiatal hernia Pneumonia Sleep apnea Myocardial infarction (Resolved) - Surgical History Surgical History: Surgical History (Last Reviewed 12/24/17 @ 08:49 by TITA Tolbert) History of appendectomy (Acute) H/O cardiac catheterization (Acute) History of dental surgery History of thyroid surgery Hx of CABG Hx of cholecystectomy - Family History Family History: Family History (Last Reviewed 12/24/17 @ 08:49 by TITA Tolbert) Mother Heart disease Father Heart disease Brother Heart disease Sister Heart disease Stroke - Tobacco History Second Hand Smoke Exposure: Yes Tobacco Use In Past 30 Days: No Smoking Status: Former smoker Tobacco Type: Cigarettes Packs Per Day: 1 (Since age 15) - Alcohol History How Often Do You Have a Drink Containing Alcohol: Never - Substance Use History Substance History: No History of Abuse - Travel History Recent Travel in the [place] Within the Last 8 Weeks: No Recent Travel Out of the Country Within the Last 8 Weeks: No - Immunization History Tetanus Immunization: Unsure Hx Influenza Vaccine This Season: Yes Medications and Allergies Active Medications: Active Medications Al Hydroxide/Mg Hydroxide (Milk Of Magnesia Liq) 30 ml PO Q12H PRN PRN Reason: Mild Constipation Albuterol (Duoneb Neb (Indu)) 1 ampul NEB Q6HR WHILE AWAKE NEB [facility] Last Admin: 12/24/17 07:52 Dose: 1 ampul Bisacodyl (Dulcolax Supp) 10 mg RECTAL DAILY PRN PRN Reason: SEVERE CONSITIPATION Lactated Ringer's (Lr 1000 Ml Inj) 1,000 mls @ 84 mls/hr IV.CONT .[id number] [facility] Last Admin: 12/24/17 06:38 Dose: 84 mls/hr Lactulose (Lactulose Liq) 30 ml PO DAILY PRN PRN Reason: SEVERE CONSITIPATION Oxycodone/Acetaminophen (Percocet 10/325 Mg) 1 tab PO Q6H PRN PRN Reason: Back Pain Last Admin: 12/24/17 04:56 Dose: 1 tab Senna/Docusate Sodium (Stephanie-Colace) 1 tab PO BID [facility] Last Admin: 12/23/17 21:01 Dose: Not Given Sennosides (Senokot) 17.2 mg PO Q12H PRN PRN Reason: Moderate Constipation Sodium Chloride (Ns Flush) 2 ml IV.FLUSH PRN PRN PRN Reason: FLUSH AFTER USING IV ACCESS Temazepam (Restoril) 15 mg PO HS PRN PRN Reason: INSOMNIA Last Admin: 12/23/17 23:43 Dose: 15 mg Allergies Allergy/AdvReac Type Severity Reaction Status Date / Time penicillin G Allergy Severe Anaphylaxis Verified 12/06/17 23:40 Home Medications Medication Instructions Recorded Confirmed Type morphine 60 mg PO Q8H 12/23/17 12/23/17 History oxycodone-acetaminophen [Percocet] 1 tab PO Q6H PRN 12/23/17 12/23/17 History Exam Vital signs: Vital Signs 12/23/17 14:33 12/23/17 14:36 12/23/17 15:32 Temperature 98.6 F Pulse Rate 65 65 61 Respiratory Rate 18 18 Blood Pressure 150/78 H 100/58 L Pulse Oximetry 97 97 12/23/17 16:45 12/23/17 18:18 12/23/17 19:38 Temperature 98.2 F Pulse Rate 64 71 70 Respiratory Rate 20 20 20 Blood Pressure 102/59 L 165/79 H Pulse Oximetry 98 94 L 96 12/23/17 21:25 12/23/17 23:41 12/24/17 00:46 Temperature 97.4 F L 97.3 F L Pulse Rate 71 65 Respiratory Rate 22 18 20 Blood Pressure 146/77 H 158/72 H Pulse Oximetry 93 L 94 L 12/24/17 04:00 12/24/17 06:07 Temperature 98.2 F Pulse Rate 63 Respiratory Rate 20 16 Blood Pressure 137/68 Pulse Oximetry 99 Intake & Output 12/23/17 12/24/17 12/24/17 18:59 06:59 18:59 Intake Total 2480 / 2480 Balance 2480 / 2480 Weight 74.3 kg 75 kg Intake: IV 2000 / 2000 LR 1000 mL Inj 1,000 ML @ 84 1000 / 1000 mls/hr IV.CONT .[id number] [facility] Rx# :[id number] NS Inj 1,000 ML @ Wide Open IV. 1000 / 1000 SIG BOLUS ONE Rx#:[id number] Oral 480 / 480 Other: # Voids 3 Weight On Admission 74.3 kg Narrative: GENERAL: Well-developed, well-nourished, in no acute distress. alert and orientated HEENT: Head is normocephalic without any lesions or masses noted. Facial features are symmetric. Eyes: Pupils equal round reactive to light. Extraocular muscles are intact. Conjunctivae were clear. Oropharyngeal: Pharynx without any erythema edema. Tongue is midline without deviation. Buccal mucosa is moist without any masses or lesions NECK: Supple without any masses. Trachea midline no deviation. No JVD, no bruits are appreciated CARDIAC: Regular rhythm, regular rate. S1/S2 are heard. No murmurs gallops or rubs. LUNGS: Clear to auscultation bilaterally. No wheeze, rhonchi or rales. No use of accessory muscles on inspiration or expiration. ABDOMEN: Soft, nontender. Nondistended. Bowel sounds heard in all 4 quadrants. No organomegaly or masses. Negative rebound, negative guarding EXTREMITIES: No edema, pulses are equal bilaterally. No cyanosis or clubbing NEUROLOGY: Patient appears to be an agitated mood, affect is appropriate. Cranial nerves II through XII grossly intact. Muscle strength 5/5 in upper and lower extremities bilaterally. Deep tendon reflexes are 2+ in upper and lower extremities bilaterally. Results - Labs CBC & Chem 7: 12/23/17 14:35 12/23/17 14:35 Labs: Laboratory Results - last 24 hr 12/23/17 12/23/17 12/23/17 14:35 14:35 14:41 CBC w Diff Auto diff final WBC 10.4 RBC 4.17 Hgb 12.3 Hct 36.8 MCV 88.2 MCH 29.5 MCHC 33.5 RDW 15.2 Plt Count 234 MPV 7.5 Neut % (Auto) 70.3 H Lymph % (Auto) 19.1 [place] % (Auto) 6.5 Eos % (Auto) 1.9 Baso % (Auto) 2.2 H Neut # (Auto) 7.3 Lymph # (Auto) 2.0 [place] # (Auto) 0.7 Eos # (Auto) 0.2 Baso # (Auto) 0.2 WBC Differential . Differential Comment . Sodium 139 Potassium 4.2 Chloride 104 Carbon Dioxide 30.3 Anion Gap 5 BUN 7 Creatinine 0.68 Estimated GFR 85 L POC Glucose 145 H Random Glucose 140 H Calcium 8.6 Magnesium 2.5 Total Bilirubin 0.5 AST 12 L ALT 16 Alkaline Phosphatase 76 Total Protein 6.1 L Albumin 3.1 L 12/23/17 21:23 CBC w Diff WBC RBC Hgb Hct MCV MCH MCHC RDW Plt Count MPV Neut % (Auto) Lymph % (Auto) [place] % (Auto) Eos % (Auto) Baso % (Auto) Neut # (Auto) Lymph # (Auto) [place] # (Auto) Eos # (Auto) Baso # (Auto) WBC Differential Differential Comment Sodium Potassium Chloride Carbon Dioxide Anion Gap BUN Creatinine Estimated GFR POC Glucose 154 H Random Glucose Calcium Magnesium Total Bilirubin AST ALT Alkaline Phosphatase Total Protein Albumin - Imaging Impressions Chest X-Ray 12/23/17 14:29 CONCLUSION: No acute intrathoracic disease. No significant changes. Head CT 12/23/17 14:29 CONCLUSION: 1. Unremarkable CT scan of the brain. . Caprini VTE Risk Assessment Caprini VTE Risk Assessment: Moderate/High Risk (score >= 2) Caprini Risk Assessment Model: Point Value = 1 Point Value = 2 Point Value = 3 Point Value = 5 Age 41-60 Minor surgery BMI > 25 kg/m2 Swollen legs Varicose veins or History of unexplained or recurrent spontaneous Oral contraceptives or hormone replacement Sepsis (< 1 month) Serious lung disease, including pneumonia (< 1 month) Abnormal pulmonary function Acute myocardial infarction Congestive heart failure (< 1 month) History of inflammatory bowel disease Medical patient at bed rest Age 61-74 Arthroscopic surgery Major open surgery (> 45 min) Laparoscopic surgery (> 45 min) Malignancy Confined to bed (> 72 hours) Immobilizing plaster cast Central venous access Age >= 75 History of VTE Family history of VTE Factor V Leiden Prothrombin [id number] Lupus anticoagulant Anticardiolipin antibodies Elevated serum homocysteine Heparin-induced thrombocytopenia Other congenital or acquired thrombophilia Stroke (< 1 month) Elective arthroplasty Hip, pelvis, or leg fracture Acute spinal cord injury (< 1 month) Prophylaxis Regimen: Total Risk Factor Score Risk Level Prophylaxis Regimen 0-1 Low Early ambulation 2 Moderate Order ONE of the following: *Sequential Compression Device (SCD) *Heparin 5000 units SQ BID 3-4 Higher Order ONE of the following medications: *Heparin 5000 units SQ TID *Enoxaparin/Lovenox 40 mg SQ daily (WT < 150 kg, CrCl > 30 mL/min) *Enoxaparin/Lovenox 30 mg SQ daily (WT < 150 kg, CrCl > 10-29 mL/min) *Enoxaparin/Lovenox 30 mg SQ BID (WT < 150 kg, CrCl > 30 mL/min) AND/OR *Sequential Compression Device (SCD) 5 or more Highest Order ONE of the following medications: *Heparin 5000 units SQ TID (Preferred with Epidurals) *Enoxaparin/Lovenox 40 mg SQ daily (WT < 150 kg, CrCl > 30 mL/min) *Enoxaparin/Lovenox 30 mg SQ daily (WT < 150 kg, CrCl > 10-29 mL/min) *Enoxaparin/Lovenox 30 mg SQ BID (WT < 150 kg, CrCl > 30 mL/min) AND *Sequential Compression Device (SCD) Assessment and Plan - Assessment (1) Muscle cramps Code(s): R25.2 - Cramp and spasm Status: Acute (2) Impaired ambulation Code(s): R26.2 - Difficulty in walking, not elsewhere classified Status: Acute (3) Hypotension Code(s): I95.9 - Hypotension, unspecified Status: Acute - Plan Hypotension -ER documentation and what appears if patient's blood pressure medications being adjusted by her prior medical doctor and has been taken off her medications. -Patient blood pressure much improved after IV hydration and not administering her high-dose morphine -Recommended the patient that her symptoms could have been related to her high- dose morphine. Notified her that she needs a follow-up with her prior medical doctor to adjust her medications Disequilibrium, dizziness, disorientation, muscle cramps -Workup did not indicate any acute abnormality contributing to her symptoms -Her symptoms have completely resolved after holding her high-dose morphine medication. Could be secondary to overuse of medications -Patient states that she is much better. She wants to be discharged. -Patient does have an appointment with her prior medical doctor at 11 AM this morning. It was discussed with that they need to address with her primary medical doctor, possible medication adjustment to prevent her presenting symptoms Chronic hypoxic respiratory failure -Continue O2 supplementation maintain O2 sats greater than 92% -Continue nebulizer treatments as needed DVT prevention -Subcutaneous heparin Discharge Planning: Discharge home in stable condition Activity: Ad debra. Diet: Healthy heart diet Medication per medication reconciliation Follow-up with primary medical doctor in 1 week
[2017-12-24 08:57] VITALS: BP 126/64; PULSE 65; RESP 18; TEMP 97
[2017-12-24] MEDS ORDERED: Heparin - SQ 10,000 UNITS/ML Vial SQ SCH (09:00)
[2017-12-24 10:05] VITALS: O2SAT 92
--- NOTE | 2017-12-24 16:08 | ECG ---
Date Performed: 12/23/2017 Time Performed: 14:38:43 PTAGE: 72 years EKG: Sinus rhythm NONSPECIFIC T-WAVE ABNORMALITY BORDERLINE ECG Since the PREVIOUS TRACING , no significant change noted PREVIOUS TRACIN12/12/2017 20.19 DOCTOR: Bruno Malone Interpretating Date/Time 12/24/2017 16:06:40
== END 2017-12-24 10:11 | disposition home or self-care (01) ==
LOC: PHEDA 14:24 → PH3 14:24 → PHED 14:24 → PHEDA 18:04 → PH3 18:07
PROVIDERS: ADMIT Hospitalist; ATTEND Hospitalist
DX: I25.10 Atherosclerotic heart disease of native coronary artery without angina pectoris; J96.11 Chronic respiratory failure with hypoxia; F17.210 Nicotine dependence, cigarettes, uncomplicated; R94.31 Abnormal electrocardiogram [ECG] [EKG]; J44.0 Chronic obstructive pulmonary disease with (acute) lower respiratory infection; Z82.3 Family history of stroke; E11.9 Type 2 diabetes mellitus without complications; Z90.49 Acquired absence of other specified parts of digestive tract; I25.2 Old myocardial infarction; R26.2 Difficulty in walking, not elsewhere classified; R25.2 Cramp and spasm; I95.9 Hypotension, unspecified; R27.8 Other lack of coordination; I50.9 Heart failure, unspecified; I11.0 Hypertensive heart disease with heart failure; Z95.1 Presence of aortocoronary bypass graft; G47.30 Sleep apnea, unspecified; Z88.0 Allergy status to penicillin

== ENCOUNTER 2018-02-23 11:36 | Inpatient (IN) ==
[2018-02-23] MEDS ORDERED: Azithromycin Inj 500 MG in Sodium Chlor 0.9% Inj 250 ML IV.SIG STA (11:43)
[2018-02-23] MEDS ORDERED: Propofol Inj 500 MG/50 ML Vial ONE (11:48)
--- NOTE | 2018-02-23 11:52 | ED ---
HPI General Chief Complaint: Shortness of Breath/Dyspnea Stated Complaint: Resp Time Seen by Provider: 02/23/18 11:42 Source: EMS Mode of arrival: EMS Limitations: altered mental status History of Present Illness 72-year-old female patient with previous history of hypertension, ID, CHF, COPD , presents to the ER today brought in by EMS because she had been having respiratory distress, and when EMS got there, she was cyanotic, and became unresponsive, was intubated for airway protection and due to respiratory distress. She is not able to give me much further history. Apparently she has been putting out copious yellowish sputum after intubation as well. Related Data Home Medications Medication Instructions Recorded Confirmed aspirin [Aspirin Childrens] 81 mg PO DAILY 02/23/18 02/23/18 atorvastatin 10 mg PO HS 02/23/18 02/23/18 furosemide 40 mg PO DAILY 02/23/18 02/23/18 isosorbide mononitrate 120 mg PO DAILY 02/23/18 02/23/18 potassium chloride 20 meq PO DAILY 02/23/18 02/23/18 prednisone 20 mg PO DAILY 02/23/18 02/23/18 promethazine 12.5 mg PO Q6H PRN 02/23/18 02/23/18 ranolazine [Ranexa] 1,000 mg PO Q12H 02/23/18 02/23/18 Allergies Allergy/AdvReac Type Severity Reaction Status Date / Time penicillin G Allergy Severe Anaphylaxis Verified 12/06/17 23:40 Review of Systems ROS Unobtainable ROS Unobtainable: unobtainable due to endotracheal tube PMFSH History History Provided By: Medical Record and Bilingual Research Interviewer / EMT Medical History Medical History Diabetes (Chronic) COPD (chronic obstructive pulmonary disease) (Chronic) CAD (coronary artery disease) (Chronic) Dysrhythmia, cardiac (Chronic) Hypertension (Chronic) CHF (congestive heart failure) (Chronic) Hiatal hernia (Acute) Pneumonia (Acute) Sleep apnea (Acute) Myocardial infarction (Resolved) Surgical History Surgical History History of appendectomy (Acute) H/O cardiac catheterization (Acute) History of dental surgery (Acute) History of thyroid surgery (Acute) Hx of CABG (Acute) Hx of cholecystectomy (Acute) Family History Family History Mother Heart disease Father Heart disease Brother Heart disease Sister Heart disease Stroke Social History Social History Substance History: Unable to Obtain Second Hand Smoke Exposure: Yes Smoking Status: Former smoker Tobacco Type: Cigarettes Packs Per Day: 1 (Since age 15) Cigarettes Per Day: 20.0 How Often Do You Have a Drink Containing Alcohol: Unable to Obtain Recent Travel in [facility] within the Last 8 Weeks: No Recent Out of Country Travel within the Last 8 Weeks: No Exam Narrative Exam Narrative: GENERAL: Well-developed elderly white female patient currently and moderate respiratory distress, intubated, on ventilator. Not verbally responsive. SKIN: Focused skin assessment warm/dry. HEAD: Atraumatic. Normocephalic. EYES: Pupils equal and round. No scleral icterus. No injection or drainage. ENT: No nasal bleeding or discharge. Mucous membranes pink and moist. NECK: Trachea midline. No JVD. CARDIOVASCULAR: Regular rate and rhythm. No murmur appreciated. RESPIRATORY: Mild accessory muscle use. Bilateral crackles throughout. Breath sounds equal bilaterally. GASTROINTESTINAL: Abdomen soft, non-tender, nondistended. Hepatic and splenic margins not palpable. MUSCULOSKELETAL: No obvious deformities. No clubbing. No cyanosis. No edema. NEUROLOGICAL: Disoriented, not following commands. PSYCHIATRIC: Unable to assess. Course Initial Documented Vital Signs Temperature 98.2 F 02/23/18 11:40 Pulse Rate 116 H 02/23/18 11:40 Respiratory Rate 27 H 02/23/18 11:40 Blood Pressure 213/108 H 02/23/18 11:40 Pulse Oximetry 100 02/23/18 11:40 Last Documented Vital Signs Temperature 98.2 F 02/23/18 11:40 Pulse Rate 80 02/23/18 12:47 Respiratory Rate 16 02/23/18 12:47 Blood Pressure 104/65 02/23/18 12:47 Pulse Oximetry 100 02/23/18 12:47 Medical Decision Making MDM Narrative Medical decision making narrative: Chest x-ray did not show overt pneumonia, ET tube appears to be in place. IV fluids, antibiotics were initiated in the ER. Lab work shows significant lactic acidosis. And at this point, case had been discussed with Dr. Stoddard of critical care unit and he also would like me to get her started on Solu-Medrol. Patient had already been given nebulizer in the ER by me as well. Planning to admit to ICU for further treatment. I had also discussed the initial findings with the patient's boyfriend who was in the room. Aggregate critical care time was 35 minutes. Time to perform other separately billable procedures was not included in the critical care time. My time did not include minutes spent treating any other patients simultaneously or on activities that did not directly contribute to the patient's treatment. The services I provided to this patient were to treat and/or prevent clinically significant deterioration that could result in: Worsening respiratory distress, respiratory arrest, sepsis, I provided critical care services requiring my management, as noted below: Chart data review, documentation time, medication orders and management, vital sign assessments/reviewing monitor data, ordering and reviewing lab tests, ordering and interpreting/reviewing x-rays and diagnostic studies, care of the patient and discussion of the patient with the admitting physicians. Medical Screen Exam Complete: Yes Emergency Medical Condition: Yes Differential Diagnosis Differential Diagnosis: COPD exacerbation versus pneumonia exacerbation versus metabolic issues Lab Data Lab results reviewed: Yes I reviewed the patient's lab results. Result diagrams: 02/23/18 11:51 02/23/18 11:51 Lab Results 02/23/18 02/23/18 02/23/18 Range/Units 11:51 11:51 11:51 WBC 6.2 (4.0-11.0) th/mm3 RBC 4.88 (4.00-5.30) mil/mm3 Hgb 14.3 (11.6-15.3) gm/dL Hct 43.4 (35.0-46.0) % MCV 88.9 (80.0-100.0) fL MCH 29.4 (27.0-34.0) pg MCHC 33.0 (32.0-36.0) % RDW 15.1 (11.6-17.2) % Plt Count 137 L (150-450) th/mm3 MPV 8.1 (7.0-11.0) fL Neut % (Auto) 69.5 (16.0-70.0) % Lymph % (Auto) 22.7 (9.0-44.0) % [place] % (Auto) 7.3 (0.0-8.0) % Eos % (Auto) 0.0 (0.0-4.0) % Baso % (Auto) 0.5 (0.0-2.0) % Neut # (Auto) 4.3 (1.8-7.7) th/mm3 Lymph # (Auto) 1.4 (1.0-4.8) th/mm3 [place] # (Auto) 0.5 (0.0-0.9) th/mm3 Eos # (Auto) 0.0 (0.0-0.4) th/mm3 Baso # (Auto) 0.0 (0.0-0.2) th/mm3 WBC Differential . Differential Comment Auto diff final Puncture Site Patient Temperature O2 Saturation (90-100) % ABG pH (7.380-7.420) ABG pCO2 (38-42) mmHg ABG pO2 (61-120) mmHg ABG HCO3 (22-26) mmol/L ABG O2 Content (12.0-20.0) Vol % ABG Base Excess (-2-2) mmol/L ABG Methemoglobin (0-2) % Tushar Test Hemoglobin (12.0-16.0) G/DL Carboxyhemoglobin (0-4) % O2 Delivery Device Vent Setting Inspired O2 % Critical Value Sodium 139 (136-145) meq/L Potassium 4.0 (3.5-5.1) meq/L Chloride 99 (98-107) meq/L Carbon Dioxide 29.1 (21.0-32.0) meq/L Anion Gap 11 (5-15) meq/L BUN 12 (7-18) mg/dL Creatinine 1.12 H (0.50-1.00) mg/dL Estimated GFR 48 L (>89) mL/min Random Glucose 187 H (74-106) mg/dL Lactic Acid 5.6 H* (0.4-2.0) mmol/L Calcium 7.8 L (8.5-10.1) mg/dL Total Bilirubin 0.6 (0.2-1.0) mg/dL AST 28 (15-37) U/L ALT 16 (10-53) U/L Alkaline Phosphatase 102 (45-117) U/L Total Creatine Kinase 67 (26-192) U/L Troponin I 0.03 (0.02-0.05) ng/mL Total Protein 6.9 (6.4-8.2) g/dL Albumin 3.6 (3.4-5.0) g/dL 02/23/18 Range/Units 12:07 WBC (4.0-11.0) th/mm3 RBC (4.00-5.30) mil/mm3 Hgb (11.6-15.3) gm/dL Hct (35.0-46.0) % MCV (80.0-100.0) fL MCH (27.0-34.0) pg MCHC (32.0-36.0) % RDW (11.6-17.2) % Plt Count (150-450) th/mm3 MPV (7.0-11.0) fL Neut % (Auto) (16.0-70.0) % Lymph % (Auto) (9.0-44.0) % [place] % (Auto) (0.0-8.0) % Eos % (Auto) (0.0-4.0) % Baso % (Auto) (0.0-2.0) % Neut # (Auto) (1.8-7.7) th/mm3 Lymph # (Auto) (1.0-4.8) th/mm3 [place] # (Auto) (0.0-0.9) th/mm3 Eos # (Auto) (0.0-0.4) th/mm3 Baso # (Auto) (0.0-0.2) th/mm3 WBC Differential Differential Comment Puncture Site Left radial Patient Temperature 98.6 O2 Saturation 97 (90-100) % ABG pH 7.29 L* (7.380-7.420) ABG pCO2 56 H* (38-42) mmHg ABG pO2 137 H (61-120) mmHg ABG HCO3 26 (22-26) mmol/L ABG O2 Content 19.8 (12.0-20.0) Vol % ABG Base Excess 0.2 (-2-2) mmol/L ABG Methemoglobin 0.7 (0-2) % Tushar Test Present Hemoglobin 14.4 (12.0-16.0) G/DL Carboxyhemoglobin 0.9 (0-4) % O2 Delivery Device Ventilator Vent Setting Ac,12,[id number] Inspired O2 60 % Critical Value Yes Sodium (136-145) meq/L Potassium (3.5-5.1) meq/L Chloride (98-107) meq/L Carbon Dioxide (21.0-32.0) meq/L Anion Gap (5-15) meq/L BUN (7-18) mg/dL Creatinine (0.50-1.00) mg/dL Estimated GFR (>89) mL/min Random Glucose (74-106) mg/dL Lactic Acid (0.4-2.0) mmol/L Calcium (8.5-10.1) mg/dL Total Bilirubin (0.2-1.0) mg/dL AST (15-37) U/L ALT (10-53) U/L Alkaline Phosphatase (45-117) U/L Total Creatine Kinase (26-192) U/L Troponin I (0.02-0.05) ng/mL Total Protein (6.4-8.2) g/dL Albumin (3.4-5.0) g/dL Imaging Data Attestation: I personally reviewed and interpreted this imaging study as follows : Radiologist's impression: Chest X-Ray 02/23/18 11:43 CONCLUSION: No evidence of pneumonia. ECG Data Attestation: I personally reviewed and interpreted this ECG as follows: Interpretation: EKG shows sinus tachycardia with a left bundle branch block pattern at 110 bpm. Discharge Plan Discharge Disposition Patient Disposition: 30 Still Patient Discharge Condition Condition: Critical Discharge Details Anticipated Discharge Date: 02/23/18 Diagnosis: Respiratory failure, Endotracheally intubated Physicians Team ED Provider: Juan Ann Primary Care Provider: Yohan Davison Rxs /Orders / Referrals /Forms Prescriptions: No Action furosemide 40 mg Tablet 40 mg PO DAILY RF: 0 atorvastatin 10 mg Tablet 10 mg PO HS RF: 0 prednisone 20 mg Tablet 20 mg PO DAILY RF: 0 isosorbide mononitrate 60 mg Tablet Extended Release 24 Hr 120 mg PO DAILY RF: 0 promethazine 25 mg Tablet 12.5 mg PO Q6H PRN (Reason: Nausea And Vomiting) RF: 0 aspirin [Aspirin Childrens] 81 mg Tablet,Chewable 81 mg PO DAILY RF: 0 ranolazine [Ranexa] 1,000 mg Tablet Extended Release 12 Hr 1,000 mg PO Q12H RF: 0 potassium chloride 20 mEq Tablet Extended Release 20 meq PO DAILY RF: 0 Discharge Interventions Interventions: Vital Signs Last Done: 02/23/18 12:47 Status ED Status: With Doctor
[2018-02-23] MEDS: Propofol 1000 mg/100 ml Inj 1,000 MG/100 ML BOTTLE IV.CONT PRN ×2 (12:00→20:17)
[2018-02-23 12:10] LABS: Baso % (Auto) 0.5 % (0.0-2.0); Hematocrit 43.4 % (35.0-46.0); Hemoglobin 14.3 gm/dL (11.6-15.3); Lymph # (Auto) 1.4 th/mm3 (1.0-4.8); Lymph % (Auto) 22.7 % (9.0-44.0); Mean Corpuscular Hemoglobin 29.4 pg (27.0-34.0); Mean Corpuscular Volume 88.9 fL (80.0-100.0); Mean Platelet Volume 8.1 fL (7.0-11.0); Mono # (Auto) 0.5 th/mm3 (0.0-0.9); Mono % (Auto) 7.3 % (0.0-8.0); Neut # (Auto) 4.3 th/mm3 (1.8-7.7); Neut % (Auto) 69.5 % (16.0-70.0); Platelet Count 137 th/mm3 (150-450); Red Blood Count 4.88 mil/mm3 (4.00-5.30); Red Cell Distribution Width 15.1 % (11.6-17.2); White Blood Count 6.2 th/mm3 (4.0-11.0)
[2018-02-23 12:17] LABS: ABG Base Excess 0.2 mmol/L (-2-2); ABG PCO2 56 mmHg (38-42); ABG PO2 137 mmHg (61-120)
--- NOTE | 2018-02-23 12:20 | XR ---
EXAM DATE: 02/23/2018 11:43 AM EDT AGE/SEX: 72 years / Female INDICATIONS: Fever. CLINICAL DATA: This is the patient's initial encounter. Patient reports that signs and symptoms have been present for 1 day and indicates a pain score of Nonresponsive. MEDICAL/SURGICAL HISTORY: . Cardiovascular disease. Diabetes. Chronic obstructive pulmonary dis ease. Hypertension. . CABG. Appendectomy. Cholecystectomy. . COMPARISON: [facility], CHEST 1V SINGLE AP, 12/23/2017. . FINDINGS: Single AP view of the chest demonstrate hyperinflation of the lungs. Heart size is normal with signif icant tortuosity of the thoracic aorta. Enlargement of the pulmonary arteries. There is an endotrache al tube with the tip overlying the level of the clavicles and NG tube in extending beyond the imaged portion of the film. CONCLUSION: No evidence of pneumonia. Electronically signed by: Chikis Renteria MD 02/23/2018 12:18 PM EDT
[2018-02-23 12:34] LABS: Alanine Aminotransferase 16 U/L (10-53); Albumin 3.6 g/dL (3.4-5.0); Anion Gap 11 meq/L (5-15); Aspartate Aminotransferase 28 U/L (15-37); Blood Urea Nitrogen 12 mg/dL (7-18); Calcium 7.8 mg/dL (8.5-10.1); Carbon Dioxide 29.1 meq/L (21.0-32.0); Chloride 99 meq/L (98-107); Glomerular Filtration Rate 48 mL/min (>89); Glucose,Random 187 mg/dL (74-106); Sodium 139 meq/L (136-145)
[2018-02-23 12:37] LABS: Alkaline Phosphatase 102 U/L (45-117); Total Protein 6.9 g/dL (6.4-8.2); Troponin I 0.03 ng/mL (0.02-0.05)
[2018-02-23 12:45] LABS: Creatine Kinase 67 U/L (26-192)
[2018-02-23] MEDS ORDERED: MethylPREDNISolone Sod Succinate Inj 125 MG/2 ML Vial IV.PUSH ONE (12:54)
[2018-02-23] MEDS ORDERED: Bisacodyl 10 MG Supp RECTAL PRN (12:56)
[2018-02-23] MEDS ORDERED: Dextrose 50% in Water 50 ML Vial IV.PUSH PRN (12:58)
[2018-02-23] MEDS ORDERED: Sod Chloride 0.9% Inj 1,000 ML IV.SIG SCH (13:00)
[2018-02-23 13:34] LABS: Bilirubin,Urine Negative (Negative); Clarity,Urine Clear (Clear); Color,Urine Yellow (Yellw/Straw); Glucose,Urine (UA) 50 mg/dL (Negative); Hyaline Casts,Urine 4 /lpf (0-3); Leukocyte Esterase,Urine Negative (Negative); Mucus,Urine Few /lpf (Occasional); Nitrite,Urine Negative (Negative); Specific Gravity,Urine 1.008 (1.002-1.035)
--- NOTE | 2018-02-23 14:25 | MH ---
cc: Sincere Garcia MD DATE OF ADMISSION: 02/23/2018 HISTORY OF PRESENT ILLNESS: The patient is a 72-year-old female with a past medical history of hypertension, coronary artery disease, COPD, paroxysmal atrial fibrillation, diabetes mellitus, who presented to [facility] ED via EMS for respiratory distress. When EMS arrived, the patient became unresponsive, cyanotic and she was subsequently intubated. On arrival to the ER, she was tachycardic with heart rate of 116 and ABG post intubation showed acute hypercapnic respiratory failure with a pH of 7.29, CO2 of 56, pO2 of 137, bicarbonate 27, and saturation of 97%. A chest x-ray showed no evidence of any acute cardiopulmonary disease. When seen, the patient is sedated with Diprivan and on full mechanical ventilation. History was limited and most of the history was obtained from reviewing the medical records. PAST MEDICAL HISTORY: Significant for COPD, coronary artery disease, paroxysmal atrial fibrillation, hypertension, diabetes mellitus, questionable CHF, sleep apnea. PAST SURGICAL HISTORY: Appendectomy, previous cardiac catheterization, previous thyroid and dental surgery, previous cholecystectomy, previous CABG. FAMILY HISTORY: Noncontributing to present illness. ALLERGIES: PENICILLIN. MEDICATIONS AT HOME: Include: 1. Ranexa. 2. Promethazine. 3. Imdur. 4. Lasix. 5. Atorvastatin. 6. Aspirin. 7. Prednisone. REVIEW OF SYSTEMS: Limited or unobtainable. PHYSICAL EXAMINATION: GENERAL: A 72-year-old female, intubated for respiratory failure. VITAL SIGNS: Temperature of 98.2, pulse of 80, respiratory rate 16, blood pressure 120/70, saturation 100%. Vent setting: Assist control ventilation with a rate of 14, tidal volume 500, PEEP of 5, FiO2 of 50%. HEENT: Atraumatic, normocephalic. Pupils are equal and reactive to light and accommodation. Extraocular muscles intact. Conjunctivae pink. Nonicteric sclerae. Oral mucosa within normal. NECK: Supple. No JVD, adenopathy or thyromegaly. Trachea in the midline. CARDIOVASCULAR: Regular rate and rhythm. Normal S1, S2. No murmurs, rubs or gallops noted. PULMONARY: Bilateral equal air entry with scattered coarse breath sounds and wheezing. ABDOMEN: Soft, nontender. No distention. Positive bowel sounds. EXTREMITIES: No cyanosis, clubbing or edema. NEUROLOGIC: Intubated and on low-dose Diprivan infusion. LABORATORY DATA: WBC 6.2, hemoglobin 14, hematocrit 43, platelet count 137. Sodium 139, potassium 4, chloride 99, CO2 of 29, BUN 12, creatinine 1.12, glucose of 187. Lactic acid 5.6. LFTs within normal. Urinalysis negative for leukocyte esterase, 1 WBC. RADIOGRAPHIC STUDIES: Chest x-ray showed no acute disease. IMPRESSION: 1. Acute hypercapnic and hypoxemic respiratory failure. 2. Chronic obstructive pulmonary disease exacerbation. 3. Lactic acidemia. 4. Hyperglycemia. 5. History of coronary artery disease. 6. Hypertension. 7. Diabetes mellitus. 8. Obstructive sleep apnea. RECOMMENDATIONS: 1. Continue with Diprivan infusion for sedation and monitor neurologic status closely. Daily sedation vacation when clinically appropriate. 2. Continue with ventilator support and maintain saturations above 92%. 3. Bronchodilators in the form of DuoNeb every 6 hours and I will initiate ICU ventilator bundle. 4. Start Solu-Medrol 60 mg IV every 8 hours. 5. Monitor heart rate and blood pressure closely and maintain MAP greater than 65 mmHg. 6. Serial lactic acid monitoring until clear. 7. The patient in the process of receiving 1 liter bolus of normal saline. We will continue with maintenance fluids NS at 84 mL an hour. 8. Monitor renal function, I's and O's electrolyte replacement per protocol. 9. Keep n.p.o. for now and place on Protonix 40 mg IV daily for gastrointestinal prophylaxis. 10. Start tube feeds within next 24 hours if remains intubated. 11. Continue with empiric antibiotics, Levaquin for chronic obstructive pulmonary disease exacerbation. Monitor for signs of infection, which include fever and WBC. A chest x-ray in the ED showed no acute disease. 12. Monitor CBC. 13 place on sliding scale insulin with Accu-Cheks for glycemic control, as the patient will be on intravenous steroids. 14. Gastrointestinal prophylaxis with Protonix 40 mg daily and deep venous thrombosis prophylaxis with sequential compression devices and heparin subcutaneously. MD LEONIE Judd/amanda , 01:38 PM , 01:51 PM
[2018-02-23] MEDS: Sod Chloride 0.9% Inj 1,000 ML IV.CONT SCH (14:36)
[2018-02-23] MEDS: Levofloxacin 500 mg Premix Inj 500 MG/100 ML PIGGYBACK IV.SIG SCH (14:37)
[2018-02-23] MEDS: Insulin NovoLIN Regular Correctional Sugar Inj SQ SCH ×2 (16:29→20:16)
[2018-02-23] MEDS: Pantoprazole Inj 40 MG Vial IV.PUSH SCH (16:33)
[2018-02-23 17:39] LABS: ABG Base Excess 5.4 mmol/L (-2-2); ABG PCO2 51 mmHg (38-42); ABG PO2 102 mmHG (61-120)
[2018-02-23] MEDS: Heparin - SQ 10,000 UNITS/ML Vial SQ SCH (20:16)
[2018-02-23] MEDS: MethylPREDNISolone Sod Succinate Inj 40 MG/ML Vial IV.PUSH SCH (21:32)
[2018-02-24] MEDS: Insulin NovoLIN Regular Correctional Sugar Inj SQ SCH ×6 (00:14→20:35)
[2018-02-24] MEDS ORDERED: Labetalol HCl Inj 20 MG/4 ML Vial IV.PUSH PRN (02:00)
[2018-02-24] MEDS: Labetalol HCl Inj 100 MG/20 ML Vial IV.PUSH PRN ×2 (02:22→23:08)
[2018-02-24] MEDS: Sod Chloride 0.9% Inj 1,000 ML IV.CONT SCH (03:28)
[2018-02-24] MEDS: Propofol 1000 mg/100 ml Inj 1,000 MG/100 ML BOTTLE IV.CONT PRN (03:30)
[2018-02-24] MEDS: Chlorhexidine Gluconate 2% 1 Pack (2 Cloths) TOPICAL SCH (03:46)
[2018-02-24] MEDS ORDERED: Chlorhexidine Gluconate 2% 1 Pack (2 Cloths) TOPICAL PRN (04:00)
[2018-02-24] MEDS: Morphine Inj 4 MG/ML Vial IV.PUSH PRN ×3 (04:04→20:34)
[2018-02-24 04:05] LABS: Baso % (Auto) 0.4 % (0.0-2.0); Hematocrit 40.4 % (35.0-46.0); Hemoglobin 13.8 gm/dL (11.6-15.3); Lymph # (Auto) 0.5 th/mm3 (1.0-4.8); Lymph % (Auto) 8.7 % (9.0-44.0); Mean Corpuscular HGB Conc 34.3 % (32.0-36.0); Mean Corpuscular Hemoglobin 29.6 pg (27.0-34.0); Mean Corpuscular Volume 86.3 fL (80.0-100.0); Mono # (Auto) 0.2 th/mm3 (0.0-0.9); Mono % (Auto) 3.4 % (0.0-8.0); Neut # (Auto) 5.2 th/mm3 (1.8-7.7); Neut % (Auto) 87.5 % (16.0-70.0); Platelet Count 138 th/mm3 (150-450); Red Blood Count 4.68 mil/mm3 (4.00-5.30); Red Cell Distribution Width 15.5 % (11.6-17.2); White Blood Count 5.9 th/mm3 (4.0-11.0)
[2018-02-24 04:34] LABS: Alanine Aminotransferase 15 U/L (10-53); Albumin 3.4 g/dL (3.4-5.0); Anion Gap 10 meq/L (5-15); Aspartate Aminotransferase 27 U/L (15-37); Blood Urea Nitrogen 14 mg/dL (7-18); Calcium 8.5 mg/dL (8.5-10.1); Carbon Dioxide 27.6 meq/L (21.0-32.0); Chloride 102 meq/L (98-107); Glomerular Filtration Rate 71 mL/min (>89); Glucose,Random 183 mg/dL (74-106); Phosphorus 3.5 mg/dL (2.5-4.9); Potassium 3.2 meq/L (3.5-5.1); Sodium 140 meq/L (136-145)
[2018-02-24] MEDS ORDERED: Labetalol HCl Inj 100 MG/20 ML Vial IV.PUSH PRN (04:36)
[2018-02-24 04:37] LABS: Alkaline Phosphatase 87 U/L (45-117); Total Protein 6.7 g/dL (6.4-8.2)
[2018-02-24] MEDS: MethylPREDNISolone Sod Succinate Inj 40 MG/ML Vial IV.PUSH SCH ×3 (05:18→21:46)
[2018-02-24] MEDS: niCARdipine Inj 25 MG in Sodium Chlor 0.9% Inj 250 ML IV.CONT PRN ×2 (06:12→23:07)
[2018-02-24 07:36] LABS: ABG Base Excess 2.7 mmol/L (-2-2); ABG PCO2 35 mmHg (38-42); ABG PO2 92 mmHG (61-120)
--- NOTE | 2018-02-24 07:42 | P.PNCC ---
Subjective Subjective Remarks/Hospital Course: patient is a 72-year-old female with a past medical history of hypertension, coronary artery disease, COPD, paroxysmal atrial fibrillation, diabetes mellitus , who presented to [facility] ED via EMS for respiratory distress. When EMS arrived, the patient became unresponsive, cyanotic and she was subsequently intubated. On arrival to the ER, she was tachycardic with heart rate of 116 and ABG post intubation showed acute hypercapnic respiratory failure with a pH of 7.29, CO2 of 56, pO2 of 137, bicarbonate 27, and saturation of 97%. A chest x-ray showed no evidence of any acute cardiopulmonary disease. When seen, the patient is sedated with Diprivan and on full mechanical ventilation 02/24 Patient is on CPAP 02/15 with 30% FIO2. Awake and alert hypertensive over night given Labetalol and placed on Kuldip drip. Afebrile. Objective Vital Signs / I&O: Vital Signs 02/23/18 11:40 02/23/18 11:50 02/23/18 11:56 Temperature 98.2 F Pulse Rate 116 H 98 H Respiratory Rate 27 H 13 Blood Pressure 213/108 H Pulse Oximetry 100 100 02/23/18 11:57 02/23/18 12:47 02/23/18 14:10 Temperature Pulse Rate 80 Respiratory Rate 16 16 Blood Pressure 104/65 Pulse Oximetry 100 100 100 02/23/18 16:00 02/23/18 16:05 02/23/18 20:00 Temperature Pulse Rate 64 68 Respiratory Rate 15 18 Blood Pressure Pulse Oximetry 100 99 02/23/18 20:37 02/23/18 20:39 02/23/18 22:54 Temperature Pulse Rate 68 72 Respiratory Rate 17 16 15 Blood Pressure Pulse Oximetry 100 99 02/24/18 04:04 02/24/18 04:05 Temperature Pulse Rate 76 Respiratory Rate 14 18 Blood Pressure Pulse Oximetry 100 Intake & Output 02/23/18 02/24/18 02/24/18 18:59 06:59 18:59 Intake Total 450 / 450 1100 / 1100 Output Total 1400 / 1400 725 / 725 Balance -950 / -950 375 / 375 Weight 68.039 kg 71.9 kg Intake: IV 450 / 450 1100 / 1100 Diprivan 1000 mg/100 ml Inj 1, 100 / 100 000 mg In 100 ml @ 5 MCG/KG/MIN 2.041 mls/hr IV.CONT TITRATE PRN Rx#:[id number] NS Inj 1,000 ML @ 84 mls/hr IV. 1000 / 1000 CONT .[id number] [facility] Rx#:[id number] Azithromycin Inj 500 MG In NS 250 / 250 Inj 250 ML @ 250 mls/hr IV.SIG STAT STA Rx#:[id number] Levaquin 500 mg Premix Inj 500 100 / 100 mg In 100 ml @ 100 mls/hr IV. SIG Q24H [facility] Rx#:[id number] Rocephin Inj 2,000 MG In NS Inj 100 / 100 100 ML @ 200 mls/hr IV.SIG STAT STA Rx#:[id number] Output: Urine Amount (Catheter) 1400 / 1400 725 / 725 Indwelling Urethral Catheter 1400 / 1400 725 / 725 Other: # Bowel Movements 0 Result Diagrams: 02/24/18 03:55 02/24/18 03:55 Other Results: Laboratory Results - last 12 hr 02/23/18 02/24/18 02/24/18 20:11 00:14 03:55 WBC 5.9 RBC 4.68 Hgb 13.8 Hct 40.4 MCV 86.3 MCH 29.6 MCHC 34.3 RDW 15.5 Plt Count 138 L MPV 8.0 Neut % (Auto) 87.5 H Lymph % (Auto) 8.7 L Stone % (Auto) 3.4 Eos % (Auto) 0.0 Baso % (Auto) 0.4 Neut # (Auto) 5.2 Lymph # (Auto) 0.5 L Stone # (Auto) 0.2 Eos # (Auto) 0.0 Baso # (Auto) 0.0 WBC Differential . Differential Comment Auto diff final Puncture Site Patient Temperature O2 Saturation ABG pH ABG pCO2 ABG pO2 ABG HCO3 ABG O2 Content ABG Base Excess ABG Methemoglobin Tushar Test Hemoglobin Carboxyhemoglobin O2 Delivery Device Vent Setting Inspired O2 Critical Value Sodium Potassium Chloride Carbon Dioxide Anion Gap BUN Creatinine Estimated GFR POC Glucose 140 H 172 H Random Glucose Calcium Phosphorus Magnesium Total Bilirubin AST ALT Alkaline Phosphatase Total Protein Albumin 02/24/18 02/24/18 02/24/18 03:55 04:03 07:10 WBC RBC Hgb Hct MCV MCH MCHC RDW Plt Count MPV Neut % (Auto) Lymph % (Auto) Stone % (Auto) Eos % (Auto) Baso % (Auto) Neut # (Auto) Lymph # (Auto) Stone # (Auto) Eos # (Auto) Baso # (Auto) WBC Differential Differential Comment Puncture Site Right radial Patient Temperature 98.6 O2 Saturation 95 ABG pH 7.48 H ABG pCO2 35 L ABG pO2 92 ABG HCO3 26 ABG O2 Content 19.4 ABG Base Excess 2.7 H ABG Methemoglobin 1.5 Tushar Test Present Hemoglobin 14.5 Carboxyhemoglobin 1.2 O2 Delivery Device Ventilator Vent Setting Cpap+5/ps+10 Inspired O2 30 Critical Value No Sodium 140 Potassium 3.2 L D Chloride 102 Carbon Dioxide 27.6 Anion Gap 10 BUN 14 Creatinine 0.80 Estimated GFR 71 L POC Glucose 166 H Random Glucose 183 H Calcium 8.5 Phosphorus 3.5 Magnesium 2.0 Total Bilirubin 0.7 AST 27 ALT 15 Alkaline Phosphatase 87 Total Protein 6.7 Albumin 3.4 Imaging: Chest X-Ray 02/23/18 11:43 CONCLUSION: No evidence of pneumonia. Objective Remarks: GENERAL: Patient is 72 yo intubated on CPAP. Awake. SKIN: Warm and dry. HEAD: Normocephalic. EYES: No scleral icterus. No injection or drainage. NECK: Supple, trachea midline. No JVD or lymphadenopathy. CARDIOVASCULAR: Regular rate and rhythm without murmurs, gallops, or rubs. RESPIRATORY: Breath sounds equal bilaterally. No accessory muscle use. GASTROINTESTINAL: Abdomen soft, non-tender, nondistended. MUSCULOSKELETAL: No cyanosis, or edema. Neuro: Awake and alert Assessment and Plan - Assessment and Plan Plan: 1. Acute hypercapnic and hypoxemic respiratory failure. 2. Chronic obstructive pulmonary disease exacerbation. 3. Lactic acidemia. 4. Hyperglycemia. 5. History of coronary artery disease. 6. Hypertension. 7. Diabetes mellitus. 8. Obstructive sleep apnea. Plan Neuro: Off Diprivan infusion. Monitor neuro status. Awake and alert. Pulm: Continue with ventilator support and maintain sats>92% Bronchodilators, Solu-Medrol 60 mg IV every 8 hours. ICU vent bundle, likely extubation today. CV: Monitor HR and BP and maintain MAP>65 mmHg. Lactic acid cleared 1.7 Wean off Kuldip drip. : Monitor renal function, I's and O's electrolyte replacement per protocol. On NS@84ml/hr. Will need K replacement today GI: Keep n.p.o. on Protonix 40 mg IV daily for Ezequiel prophylaxis. Speech eval once extubated. ID: Continue with Levaquin. Monitor for signs of infection(fever and WBC). Follow up on blood and sputum cx 02/23: NGTD Heme: Monitor CBC. Endo: SSI with Accu-Cheks for glycemic GI prophylaxis with Protonix 40 mg daily DVT with SCD and heparin subcutaneously. Addendum: Patient is extubated and is on 2L oxygen. Will sign off and transfer acre to Hospitalist service. Level 2
[2018-02-24] MEDS ORDERED: Potassium Chlor 40 mEq Premix 40 MEQ/100 ML PIGGYBACK IV.SIG PRN ×2 (07:56)
[2018-02-24] MEDS ORDERED: Potassium Chloride 25 MEQ Effervescent Tablet PO PRN (07:56)
[2018-02-24] MEDS ORDERED: Magnesium Sulfate Inj 4 GM in Sodium Chlor 0.9% Inj 92 ML IV.SIG PRN (07:56)
[2018-02-24] MEDS ORDERED: Magnesium Oxide 400 MG Tablet PO PRN (07:56)
[2018-02-24] MEDS ORDERED: Magnesium Sulfate Inj 2 GM in Sodium Chlor 0.9% Inj 96 ML IV.SIG PRN (07:56)
[2018-02-24] MEDS ORDERED: Sodium Phosphate Inj 30 MMOL in Sodium Chlor 0.9% Inj 250 ML IV.SIG PRN (07:56)
[2018-02-24] MEDS ORDERED: Potassium Phosphate 500 MG Soluble Tablet PO PRN ×2 (07:56)
[2018-02-24] MEDS ORDERED: Potassium Phosphate Inj 30 MMOL in Sodium Chlor 0.9% Inj 250 ML IV.SIG PRN (07:56)
[2018-02-24] MEDS ORDERED: Potassium Chlor 20 mEq Premix 20 MEQ/100 ML PIGGYBACK IV.SIG PRN (07:56)
[2018-02-24] MEDS: Pantoprazole Inj 40 MG Vial IV.PUSH SCH (08:24)
[2018-02-24] MEDS: Heparin - SQ 10,000 UNITS/ML Vial SQ SCH ×2 (08:24→20:35)
[2018-02-24] MEDS: Potassium Chlor 20 mEq Premix 20 MEQ/100 ML PIGGYBACK IV.SIG PRN ×3 (08:25→12:25)
[2018-02-24] MEDS: Budesonide-Formoterol 160/4.5 MCG 6 GM Inhaler INH SCH ×2 (10:21→23:20)
[2018-02-24] MEDS: Levofloxacin 500 mg Premix Inj 500 MG/100 ML PIGGYBACK IV.SIG SCH (15:14)
--- NOTE | 2018-02-24 16:07 | ECG ---
Date Performed: 02/23/2018 Time Performed: 11:40:35 PTAGE: 72 years EKG: SINUS TACHYCARDIA LEFT BUNDLE BRANCH BLOCK ABNORMAL ECG Compared to PREVIOUS TRACING , the heart rate is faster and the left bundle branch block is new. PREV IOUS TRACIN12/23/2017 14.38 DOCTOR: Yohan Bañuelos Interpretating Date/Time 02/24/2018 16:06:16
--- NOTE | 2018-02-24 16:11 | ECG ---
Date Performed: 02/23/2018 Time Performed: 14:50:36 PTAGE: 72 years EKG: Sinus rhythm Anteroseptal T wave changes, nonspecific Slight intraventricular conduction disturbance Compared to previous tracing, heart rate has slowed from 110 to 68 and left bundle branch block no longer present . The T-wave changes are new. This may be a rate related left bundle branch block pattern. Abnormal E CG PREVIOUS TRACING : 02/23/2018 11.40 DOCTOR: Yohan Bañuelos Interpretating Date/Time 02/24/2018 16:09:17
--- NOTE | 2018-02-24 19:25 | MB ---
cc: Rashida Shirley MD DATE: 02/24/2018 REASON FOR CONSULTATION: Chronic obstructive pulmonary disease. HISTORY OF PRESENT ILLNESS: This 72-year-old lady with a history of hypertension, COPD, coronary artery disease, and atrial fibrillation, as well as diabetes mellitus type 2, was seen in the emergency room with acute respiratory distress and hypoxemia. The patient apparently was in severe distress and had to be intubated for respiratory failure. She was tachycardic and the initial blood gases demonstrated hypercapnia. The patient's chest x-ray showed no acute cardiopulmonary disease. She was taken to the ICU following intubation with ventilator support and subsequently was weaned off the ventilator over the past 24 hours. She is now extubated and on O2 via nasal cannula at 2 liters and seems to be comfortable, talking and in no respiratory distress. The patient has a cough and some wheezing, but does not bring up any sputum. PAST MEDICAL HISTORY: Includes history of COPD and diabetes mellitus and coronary artery disease, history of atrial fibrillation, hypertension, history of sleep apnea and possible CHF. PAST SURGICAL HISTORY: Includes appendectomy, cardiac catheterization and a cholecystectomy and prior coronary artery bypass graft x3. ALLERGIES: PENICILLIN. FAMILY HISTORY: Noncontributory. MEDICATIONS: 1. Lasix. 2. Imdur. 3. Ranexa. 4. Promethazine. 5. Atorvastatin. 6. Prednisone. REVIEW OF SYSTEMS: The patient has gained weight. She has sleep apnea, chills, wheezing, chest congestion and cough. She has no leg swelling. Denies any urinary or GI symptoms. No headaches or blackouts. Denies any skin rash. PHYSICAL EXAMINATION: This moderately overweight, elderly lady was in no acute distress. No pallor or cyanosis. No clubbing or peripheral edema. VITAL SIGNS: Blood pressure 138/80, pulse 90, respirations 16, temperature 97.2. HEENT: Head is normocephalic. Pupils are reactive and equal. Tongue is moist. Throat was mildly injected. Nasal mucosa edematous. NECK: No bruits or thyroid enlargement or lymphadenopathy. CHEST: Equal movements with distant breath sounds with expiratory wheezes throughout both lung amaya, prolonged expirations. HEART: The heart sounds are irregular, S1 and S2. No murmur. No S3. ABDOMEN: Soft, benign. No mass. No organomegaly or tenderness. Bowel sounds are active. EXTREMITIES: No lesions, no edema or calf tenderness. Reflexes are 1+ with no gross motor deficits. Cranial nerves grossly intact. SKIN: No lesions are noted. IMPRESSION: 1. Acute hypercapnic respiratory failure, resolved. 2. Chronic obstructive pulmonary disease with acute exacerbation. 3. History of atrial fibrillation. 4. Diabetes mellitus type 2. 5. Chronic obstructive pulmonary disease with emphysema. PLAN: The patient has been placed on 2 liters of oxygen nasal cannula. We will continue with Solu-Medrol at 40 mg IV every 8 hours. Nebulized DuoNeb solution every 6 hours, and continue with IV Levaquin 500 mg daily and also get a PFT in the a.m. The patient will be transferred to the telemetry unit and will be placed on Symbicort 160/4.5 mcg 2 puffs twice a day. A CT chest will be done to rule out masses and/or pulmonary emboli. The patient will be maintained on heparin subcutaneously 5000 units every 12 hours. Thank you, Dr. Garcia, for this consultation. VJeanette Shirley MD VJD/junior , 04:03 PM , 04:13 PM
[2018-02-24 23:03] LABS: Troponin I 0.35 ng/mL (0.02-0.05)
[2018-02-24] MEDS ORDERED: Labetalol HCl Inj 100 MG/20 ML Vial IV.PUSH ONE (23:15)
[2018-02-24] MEDS ORDERED: niCARdipine Inj 25 MG in Sodium Chlor 0.9% Inj 250 ML IV.CONT PRN (23:16)
[2018-02-24 23:17] LABS: ABG Base Excess -3.3 mmol/L (-2-2); ABG PCO2 82 mmHg (38-42); ABG PO2 84 mmHG (61-120)
[2018-02-25] MEDS: Insulin NovoLIN Regular Correctional Sugar Inj SQ SCH ×6 (00:27→20:20)
[2018-02-25 00:46] LABS: ABG Base Excess 0.1 mmol/L (-2-2); ABG PCO2 44 mmHg (38-42); ABG PO2 78 mmHG (61-120)
--- NOTE | 2018-02-25 03:30 | XR ---
EXAM DATE: 02/25/2018 12:00 AM EDT AGE/SEX: 72 years / Female INDICATIONS: Shortness of breath, possible pulmonary disease. CLINICAL DATA: This is the patient's subsequent encounter. Patient reports that signs and symptoms h ave been present for 3 days and indicates a pain score of Nonresponsive. MEDICAL/SURGICAL HISTORY: Cardiovascular disease. Diabetes. Chronic obstructive pulmonary dis ease. Hypertension. CABG. Appendectomy. Cholecystectomy. [place] [facility] [place]. . FINDINGS: The cardiac silhouette is enlarged in transverse diameter. Median sternotomy wires are present. There is bilateral lower lobe atelectasis versus pneumonia right greater than left. This is new when mansi red with the prior exam. No pleural effusions are identified. CONCLUSION: Bilateral lower lobe atelectasis versus pneumonia. This is new when compared with the prior exam. Electronically signed by: Flo Swanson MD 02/25/2018 3:29 AM EDT
[2018-02-25] MEDS: Chlorhexidine Gluconate 2% 1 Pack (2 Cloths) TOPICAL SCH (05:40)
[2018-02-25] MEDS: MethylPREDNISolone Sod Succinate Inj 40 MG/ML Vial IV.PUSH SCH ×3 (05:40→22:30)
[2018-02-25 07:27] LABS: Baso % (Auto) 0.1 % (0.0-2.0); Hematocrit 43.9 % (35.0-46.0); Lymph # (Auto) 0.9 th/mm3 (1.0-4.8); Lymph % (Auto) 7.3 % (9.0-44.0); Mean Corpuscular HGB Conc 34.1 % (32.0-36.0); Mean Corpuscular Hemoglobin 29.2 pg (27.0-34.0); Mean Corpuscular Volume 85.8 fL (80.0-100.0); Mean Platelet Volume 8.4 fL (7.0-11.0); Mono # (Auto) 0.7 th/mm3 (0.0-0.9); Mono % (Auto) 5.3 % (0.0-8.0); Neut # (Auto) 11.3 th/mm3 (1.8-7.7); Neut % (Auto) 87.3 % (16.0-70.0); Platelet Count 194 th/mm3 (150-450); Red Blood Count 5.12 mil/mm3 (4.00-5.30); Red Cell Distribution Width 15.6 % (11.6-17.2)
[2018-02-25 07:53] LABS: Calcium 9.5 mg/dL (8.5-10.1); Carbon Dioxide 27.5 meq/L (21.0-32.0); Magnesium 2.5 mg/dL (1.5-2.5); Potassium 3.2 meq/L (3.5-5.1)
--- NOTE | 2018-02-25 07:59 | P.PNCC ---
Subjective Subjective Remarks/Hospital Course: patient is a 72-year-old female with a past medical history of hypertension, coronary artery disease, COPD, paroxysmal atrial fibrillation, diabetes mellitus , who presented to [facility] ED via EMS for respiratory distress. When EMS arrived, the patient became unresponsive, cyanotic and she was subsequently intubated. On arrival to the ER, she was tachycardic with heart rate of 116 and ABG post intubation showed acute hypercapnic respiratory failure with a pH of 7.29, CO2 of 56, pO2 of 137, bicarbonate 27, and saturation of 97%. A chest x-ray showed no evidence of any acute cardiopulmonary disease. When seen, the patient is sedated with Diprivan and on full mechanical ventilation 02/24 Patient is on CPAP 02/15 with 30% FIO2. Awake and alert hypertensive over night given Labetalol and placed on Kuldip drip. Afebrile. 02/25 Patient was extubated yesterday placed on BIPAP last night for acute resp acidosis repeat ABG at midnight showed improvements with PH: 7.37/CO2:44, awake and alert. CXR this morning showed b/l lower lobe atelectasis vs pneumonia, afebrile. Hypertensive. Objective Vital Signs / I&O: Vital Signs 02/24/18 08:00 02/24/18 08:03 02/24/18 09:00 Temperature Pulse Rate 84 86 78 Respiratory Rate 18 Blood Pressure Pulse Oximetry 98 02/24/18 12:18 02/24/18 14:18 02/24/18 20:00 Temperature Pulse Rate 78 84 91 H Respiratory Rate 18 18 Blood Pressure Pulse Oximetry 97 02/24/18 20:26 02/24/18 22:00 02/24/18 22:27 Temperature Pulse Rate 79 100 H 108 H Respiratory Rate 16 40 H Blood Pressure Pulse Oximetry 97 02/24/18 22:40 02/24/18 23:05 02/24/18 23:11 Temperature Pulse Rate Respiratory Rate Blood Pressure Pulse Oximetry 90 L 95 96 02/24/18 23:25 02/25/18 00:00 02/25/18 02:00 Temperature Pulse Rate 87 78 Respiratory Rate 34 H Blood Pressure Pulse Oximetry 89 L 02/25/18 04:00 02/25/18 04:12 02/25/18 04:14 Temperature 98 F Pulse Rate 76 77 Respiratory Rate 23 18 Blood Pressure 118/62 Pulse Oximetry 100 96 02/25/18 06:00 Temperature Pulse Rate 82 Respiratory Rate Blood Pressure Pulse Oximetry Intake & Output 02/24/18 02/25/18 02/25/18 18:59 06:59 18:59 Intake Total 710 / 710 1780 / 1780 Output Total 1100 / 1100 Balance -390 / -390 1780 / 1780 Weight 68.6 kg Intake: IV 470 / 470 1300 / 1300 Diprivan 1000 mg/100 ml Inj 1, 10 / 10 000 mg In 100 ml @ 5 MCG/KG/MIN 2.041 mls/hr IV.CONT TITRATE PRN Rx#:[id number] NS Inj 1,000 ML @ 84 mls/hr IV. 1000 / 1000 CONT .[id number] [facility] Rx#:[id number] Cardene Inj 25 MG In NS Inj 250 260 / 260 ML @ 10 MG/HR 104 mls/hr IV. CONT TITRATE PRN Rx#:[id number] Levaquin 500 mg Premix Inj 500 100 / 100 mg In 100 ml @ 100 mls/hr IV. SIG Q24H [facility] Rx#:[id number] KCl 20 mEq Premix Inj 20 meq In 200 / 200 200 / 200 100 ml @ 50 mls/hr IV.SIG Q2H PRN Rx#:[id number] Oral 240 / 240 480 / 480 Output: Urine 1100 / 1100 Other: # Voids 5 # Urine Diapers 500 # Bowel Movements 0 1 Result Diagrams: 02/25/18 06:02 02/25/18 06:02 Other Results: Laboratory Results - last 12 hr 02/24/18 02/24/18 02/25/18 22:30 22:37 00:24 WBC RBC Hgb Hct MCV MCH MCHC RDW Plt Count MPV Neut % (Auto) Lymph % (Auto) [place] % (Auto) Eos % (Auto) Baso % (Auto) Neut # (Auto) Lymph # (Auto) [place] # (Auto) Eos # (Auto) Baso # (Auto) WBC Differential Differential Comment Puncture Site Right radial Patient Temperature 98.6 O2 Saturation 89 L* ABG pH 7.11 L* ABG pCO2 82 H* ABG pO2 84 ABG HCO3 25 ABG O2 Content 22.6 H ABG Base Excess -3.3 L ABG Methemoglobin 1.5 Tushar Test Present Hemoglobin 18.1 H Carboxyhemoglobin 0.1 O2 Delivery Device Bipap Vent Setting 15ipap/5epap Inspired O2 100 Critical Value Yes POC Glucose 234 H Total Creatine Kinase 60 Troponin I 0.35 H D 02/25/18 02/25/18 02/25/18 00:28 05:32 06:02 WBC 13.0 H RBC 5.12 Hgb 15.0 Hct 43.9 MCV 85.8 MCH 29.2 MCHC 34.1 RDW 15.6 Plt Count 194 D MPV 8.4 Neut % (Auto) 87.3 H Lymph % (Auto) 7.3 L [place] % (Auto) 5.3 Eos % (Auto) 0.0 Baso % (Auto) 0.1 Neut # (Auto) 11.3 H Lymph # (Auto) 0.9 L [place] # (Auto) 0.7 Eos # (Auto) 0.0 Baso # (Auto) 0.0 WBC Differential . Differential Comment Auto diff final Puncture Site Right radial Patient Temperature 98.6 O2 Saturation 92 ABG pH 7.37 L ABG pCO2 44 H ABG pO2 78 ABG HCO3 25 ABG O2 Content 20.8 H ABG Base Excess 0.1 ABG Methemoglobin 1.5 Tushra Test Present Hemoglobin 16.1 H Carboxyhemoglobin 0.8 O2 Delivery Device Bipap Vent Setting 18ipap/8epap Inspired O2 45 Critical Value No POC Glucose 151 H Total Creatine Kinase Troponin I 02/25/18 07:40 WBC RBC Hgb Hct MCV MCH MCHC RDW Plt Count MPV Neut % (Auto) Lymph % (Auto) [place] % (Auto) Eos % (Auto) Baso % (Auto) Neut # (Auto) Lymph # (Auto) [place] # (Auto) Eos # (Auto) Baso # (Auto) WBC Differential Differential Comment Puncture Site Patient Temperature O2 Saturation ABG pH ABG pCO2 ABG pO2 ABG HCO3 ABG O2 Content ABG Base Excess ABG Methemoglobin Tushar Test Hemoglobin Carboxyhemoglobin O2 Delivery Device Vent Setting Inspired O2 Critical Value POC Glucose 153 H Total Creatine Kinase Troponin I Imaging: Chest X-Ray 02/25/18 00:00 CONCLUSION: Bilateral lower lobe atelectasis versus pneumonia. This is new when compared with the prior exam. Objective Remarks: GENERAL: Patient is 72 yo on BIPAP SKIN: Warm and dry. HEAD: Normocephalic. EYES: No scleral icterus. No injection or drainage. NECK: Supple, trachea midline. No JVD or lymphadenopathy. CARDIOVASCULAR: Regular rate and rhythm without murmurs, gallops, or rubs. RESPIRATORY: Breath sounds equal bilaterally. No accessory muscle use. GASTROINTESTINAL: Abdomen soft, non-tender, nondistended. MUSCULOSKELETAL: No cyanosis, or edema. Neuro: Awake and alert Assessment and Plan - Assessment and Plan Plan: 1. Acute hypercapnic and hypoxemic respiratory failure. 2. Chronic obstructive pulmonary disease exacerbation. 3. Lactic acidemia. 4. Hyperglycemia. 5. History of coronary artery disease. 6. Hypertension. 7. Diabetes mellitus. 8. Obstructive sleep apnea. 9 NSTEMI Plan Neuro: Monitor neuro status. Awake and alert. Pulm: Continue with oxygen and maintain sats>92% Bronchodilators( Duoneb, Symbicort), IS, Solu-Medrol 60 mg IV every 8 hours. BIPAP pren for resp distress, check ABG Pulm is following-Dr. Shirley CV: Monitor HR and BP and maintain MAP>[address] Cardizem 30mg QID, off Kuldip drip Echo today: Wall thickness is normal. Normal left ventricular size. The left ventricular systolic function is hyperdynamic with an estimated ejection fraction in the range of 65-70%. There was limited left ventricular wall motion assessment due to poor endocardial visualization, however, no obvious regional wall motion abnormalities are present. Trop :0.35 last night, repeat trop 6.[address] Heparin drip and ASA 81mg daily cards eval- spoke to Dr. Dustin Olmedo with Lasix 40mg x1 ( BNP 1061) Lactic acid cleared 1.7 : Monitor renal function, I's and O's electrolyte replacement per protocol. GI:on Protonix 40 mg IV daily for Ezequiel prophylaxis. On PO diet ID: Continue with Levaquin. Patient is allergic to PCN Monitor for signs of infection(fever and WBC). Follow up on blood and sputum cx 02/23: NGTD Check Pneumonia and Legionella urinary Ag Heme: Monitor CBC. Endo: SSI with Accu-Cheks for glycemic GI prophylaxis with Protonix 40 mg daily DVT with SCD, start heparin drip Level 3
[2018-02-25] MEDS: Pantoprazole Inj 40 MG Vial IV.PUSH SCH (08:02)
[2018-02-25] MEDS: Heparin - SQ 10,000 UNITS/ML Vial SQ SCH (08:02)
[2018-02-25] MEDS: Budesonide-Formoterol 160/4.5 MCG 6 GM Inhaler INH SCH ×2 (08:03→23:19)
[2018-02-25 09:10] LABS: Troponin I 6.24 ng/mL (0.02-0.05)
[2018-02-25 09:39] LABS: Creatine Kinase MB 39.9 ng/mL (0.5-3.6)
[2018-02-25 09:47] LABS: CKMB Percent 17.8 % (0.0-4.0)
[2018-02-25] MEDS ORDERED: Heparin Drip 25,000 UNIT/250 ML BAG IV.CONT PRN (10:00)
[2018-02-25] MEDS ORDERED: Sodium Chloride 0.9% 2 ML Flush PRN IV.FLUSH (10:13)
[2018-02-25] MEDS: dilTIAZem 30 MG Tablet PO SCH ×2 (10:20→15:07)
[2018-02-25] MEDS: Potassium Chlor 20 mEq Premix 20 MEQ/100 ML PIGGYBACK IV.SIG PRN ×4 (10:22→17:50)
[2018-02-25 10:43] LABS: Activated Partial Thrombo Time 23.4 sec (24.3-30.1); INR 1.1 Ratio; Prothrombin Time 11.2 sec (9.8-11.6)
[2018-02-25 10:44] LABS: ABG Base Excess 1.5 mmol/L (-2-2); ABG PCO2 31 mmHg (38-42); ABG PO2 87 mmHG (61-120)
--- NOTE | 2018-02-25 12:00 | P.PN ---
Subjective Interval history: On BIPAP this AM. was in distress last nite and had to be given lasix . Troponin was >5. Good output with lasix . cardiac Evaluation in progress Physical Exam Vital signs: Vital Signs 02/24/18 12:18 02/24/18 14:18 02/24/18 20:00 Temperature Pulse Rate 78 84 91 H Respiratory Rate 18 18 Blood Pressure Pulse Oximetry 97 02/24/18 20:26 02/24/18 22:00 02/24/18 22:27 Temperature Pulse Rate 79 100 H 108 H Respiratory Rate 16 40 H Blood Pressure Pulse Oximetry 97 02/24/18 22:40 02/24/18 23:05 02/24/18 23:11 Temperature Pulse Rate Respiratory Rate Blood Pressure Pulse Oximetry 90 L 95 96 02/24/18 23:25 02/25/18 00:00 02/25/18 02:00 Temperature Pulse Rate 87 78 Respiratory Rate 34 H Blood Pressure Pulse Oximetry 89 L 02/25/18 04:00 02/25/18 04:12 02/25/18 04:14 Temperature 98 F Pulse Rate 76 77 Respiratory Rate 23 18 Blood Pressure 118/62 Pulse Oximetry 100 96 02/25/18 06:00 02/25/18 08:50 02/25/18 11:41 Temperature Pulse Rate 82 79 100 H Respiratory Rate 21 20 Blood Pressure Pulse Oximetry 99 Intake & Output 02/24/18 02/25/18 02/25/18 18:59 06:59 18:59 Intake Total 710 / 710 1780 / 1780 Output Total 1100 / 1100 Balance -390 / -390 1780 / 1780 Weight 68.6 kg Intake: IV 470 / 470 1300 / 1300 Diprivan 1000 mg/100 ml Inj 1, 10 / 10 000 mg In 100 ml @ 5 MCG/KG/MIN 2.041 mls/hr IV.CONT TITRATE PRN Rx#:[id number] NS Inj 1,000 ML @ 84 mls/hr IV. 1000 / 1000 CONT .[id number] RICHELLE Rx#:[id number] Cardene Inj 25 MG In NS Inj 250 260 / 260 ML @ 10 MG/HR 104 mls/hr IV. CONT TITRATE PRN Rx#:[id number] Levaquin 500 mg Premix Inj 500 100 / 100 mg In 100 ml @ 100 mls/hr IV. SIG Q24H RICHELLE Rx#:[id number] KCl 20 mEq Premix Inj 20 meq In 200 / 200 200 / 200 100 ml @ 50 mls/hr IV.SIG Q2H PRN Rx#:[id number] Oral 240 / 240 480 / 480 Output: Urine 1100 / 1100 Other: # Voids 5 # Urine Diapers 500 # Bowel Movements 0 1 GENERAL: Elderly W/F awake in no distress. SKIN: Warm and dry. HEAD: Normocephalic. EYES: No scleral icterus. No injection or drainage. NECK: Supple, trachea midline. No JVD or lymphadenopathy. CARDIOVASCULAR: Regular rate and rhythm without murmurs, gallops, or rubs. RESPIRATORY: Breath sounds equal bilaterally. Occ wheeze in upper chest. Neuro: No focal deficit. GASTROINTESTINAL: Abdomen soft, non-tender, nondistended. MUSCULOSKELETAL: No cyanosis, or edema. BACK: Nontender without obvious deformity. No CVA tenderness. - Urinary Catheter Management Indwelling Urethral Catheter Cath placed during this visit: yes, but has since been removed by the nurse Reason for continuing: Continue criteria not met Insertion date: 02/23/18 Insertion time: 11:46 Removal date: 02/24/18 Removal time: 10:30 Results - Labs CBC & Chem 7: 02/25/18 06:02 02/25/18 06:02 Laboratory Results - last 24 hr 02/24/18 02/24/18 02/24/18 12:01 16:33 19:34 WBC RBC Hgb Hct MCV MCH MCHC RDW Plt Count MPV Neut % (Auto) Lymph % (Auto) Candler % (Auto) Eos % (Auto) Baso % (Auto) Neut # (Auto) Lymph # (Auto) Candler # (Auto) Eos # (Auto) Baso # (Auto) WBC Differential Differential Comment PT INR APTT Puncture Site Patient Temperature O2 Saturation ABG pH ABG pCO2 ABG pO2 ABG HCO3 ABG O2 Content ABG Base Excess ABG Methemoglobin Tushar Test Hemoglobin Carboxyhemoglobin O2 Delivery Device Vent Setting Inspired O2 Critical Value Sodium Potassium Chloride Carbon Dioxide Anion Gap BUN Creatinine Estimated GFR POC Glucose 208 H 205 H 207 H Random Glucose Calcium Phosphorus Magnesium Total Creatine Kinase CK-MB (CK-2) CK-MB (CK-2) % Troponin I B-Natriuretic Peptide 02/24/18 02/24/18 02/25/18 22:30 22:37 00:24 WBC RBC Hgb Hct MCV MCH MCHC RDW Plt Count MPV Neut % (Auto) Lymph % (Auto) Candler % (Auto) Eos % (Auto) Baso % (Auto) Neut # (Auto) Lymph # (Auto) Candler # (Auto) Eos # (Auto) Baso # (Auto) WBC Differential Differential Comment PT INR APTT Puncture Site Right radial Patient Temperature 98.6 O2 Saturation 89 L* ABG pH 7.11 L* ABG pCO2 82 H* ABG pO2 84 ABG HCO3 25 ABG O2 Content 22.6 H ABG Base Excess -3.3 L ABG Methemoglobin 1.5 Tushar Test Present Hemoglobin 18.1 H Carboxyhemoglobin 0.1 O2 Delivery Device Bipap Vent Setting 15ipap/5epap Inspired O2 100 Critical Value Yes Sodium Potassium Chloride Carbon Dioxide Anion Gap BUN Creatinine Estimated GFR POC Glucose 234 H Random Glucose Calcium Phosphorus Magnesium Total Creatine Kinase 60 CK-MB (CK-2) CK-MB (CK-2) % Troponin I 0.35 H D B-Natriuretic Peptide 02/25/18 02/25/18 02/25/18 00:28 05:32 06:02 WBC 13.0 H RBC 5.12 Hgb 15.0 Hct 43.9 MCV 85.8 MCH 29.2 MCHC 34.1 RDW 15.6 Plt Count 194 D MPV 8.4 Neut % (Auto) 87.3 H Lymph % (Auto) 7.3 L Candler % (Auto) 5.3 Eos % (Auto) 0.0 Baso % (Auto) 0.1 Neut # (Auto) 11.3 H Lymph # (Auto) 0.9 L Candler # (Auto) 0.7 Eos # (Auto) 0.0 Baso # (Auto) 0.0 WBC Differential . Differential Comment Auto diff final PT INR APTT Puncture Site Right radial Patient Temperature 98.6 O2 Saturation 92 ABG pH 7.37 L ABG pCO2 44 H ABG pO2 78 ABG HCO3 25 ABG O2 Content 20.8 H ABG Base Excess 0.1 ABG Methemoglobin 1.5 Tushar Test Present Hemoglobin 16.1 H Carboxyhemoglobin 0.8 O2 Delivery Device Bipap Vent Setting 18ipap/8epap Inspired O2 45 Critical Value No Sodium Potassium Chloride Carbon Dioxide Anion Gap BUN Creatinine Estimated GFR POC Glucose 151 H Random Glucose Calcium Phosphorus Magnesium Total Creatine Kinase CK-MB (CK-2) CK-MB (CK-2) % Troponin I B-Natriuretic Peptide 02/25/18 02/25/18 02/25/18 06:02 07:40 08:20 WBC RBC Hgb Hct MCV MCH MCHC RDW Plt Count MPV Neut % (Auto) Lymph % (Auto) Candler % (Auto) Eos % (Auto) Baso % (Auto) Neut # (Auto) Lymph # (Auto) Candler # (Auto) Eos # (Auto) Baso # (Auto) WBC Differential Differential Comment PT INR APTT Puncture Site Patient Temperature O2 Saturation ABG pH ABG pCO2 ABG pO2 ABG HCO3 ABG O2 Content ABG Base Excess ABG Methemoglobin Tushar Test Hemoglobin Carboxyhemoglobin O2 Delivery Device Vent Setting Inspired O2 Critical Value Sodium 138 Potassium 3.2 L Chloride 100 Carbon Dioxide 27.5 Anion Gap 11 BUN 20 H Creatinine 0.76 Estimated GFR 75 L POC Glucose 153 H Random Glucose 160 H Calcium 9.5 D Phosphorus 3.0 Magnesium 2.5 Total Creatine Kinase 224 H CK-MB (CK-2) 39.9 H CK-MB (CK-2) % 17.8 H* Troponin I 6.24 H* D B-Natriuretic Peptide 02/25/18 02/25/18 02/25/18 08:20 09:55 10:16 WBC RBC Hgb Hct MCV MCH MCHC RDW Plt Count MPV Neut % (Auto) Lymph % (Auto) Candler % (Auto) Eos % (Auto) Baso % (Auto) Neut # (Auto) Lymph # (Auto) Candler # (Auto) Eos # (Auto) Baso # (Auto) WBC Differential Differential Comment PT 11.2 INR 1.1 APTT 23.4 L Puncture Site Right radial Patient Temperature 98.6 O2 Saturation 95 ABG pH 7.51 H* ABG pCO2 31 L ABG pO2 87 ABG HCO3 24 ABG O2 Content 20.7 H ABG Base Excess 1.5 ABG Methemoglobin 1.5 Tushar Test Present Hemoglobin 15.5 Carboxyhemoglobin 0.9 O2 Delivery Device Bipap Vent Setting Inspired O2 45 Critical Value Yes Sodium Potassium Chloride Carbon Dioxide Anion Gap BUN Creatinine Estimated GFR POC Glucose Random Glucose Calcium Phosphorus Magnesium Total Creatine Kinase CK-MB (CK-2) CK-MB (CK-2) % Troponin I B-Natriuretic Peptide 1061 H Microbiology 02/23/18 11:56 Blood - Peripheral Aerobic Blood Culture - Preliminary No growth in 2 days 02/23/18 11:56 Blood - Peripheral Anaerobic Blood Culture - Preliminary No growth in 2 days 02/23/18 11:39 Blood - Peripheral Aerobic Blood Culture - Preliminary No growth in 2 days 02/23/18 11:39 Blood - Peripheral Anaerobic Blood Culture - Preliminary No growth in 2 days 02/23/18 14:15 Sputum - Endotracheal Gram Stain - Final 02/23/18 14:15 Sputum - Endotracheal Sputum Culture - Preliminary Heavy growth normal respiratory antwon at 24 hours - Imaging Impressions Chest X-Ray 02/25/18 00:00 CONCLUSION: Bilateral lower lobe atelectasis versus pneumonia. This is new when compared with the prior exam. Assessment and Plan - Assessment (1) COPD (chronic obstructive pulmonary disease) with acute bronchitis Code(s): J44.0 - Chronic obstructive pulmonary disease with acute lower respiratory infection; J20.9 - Acute bronchitis, unspecified Status: Acute (2) Hypertension Code(s): I10 - Essential (primary) hypertension Status: Chronic (3) Respiratory failure Code(s): J96.90 - Respiratory failure, unspecified, unspecified whether with hypoxia or hypercapnia Status: Acute (4) Non-ST elevation (NSTEMI) myocardial infarction Code(s): I21.4 - Non-ST elevation (NSTEMI) myocardial infarction Status: Acute (5) SIRS (systemic inflammatory response syndrome) Code(s): R65.10 - Systemic inflammatory response syndrome (SIRS) of non- infectious origin without acute organ dysfunction Status: Acute (6) CHF exacerbation Code(s): I50.9 - Heart failure, unspecified Status: Acute (7) Shortness of breath Code(s): R06.02 - Shortness of breath Status: Chronic (8) Debility Code(s): R53.81 - Other malaise Status: Chronic (9) Paroxysmal atrial fibrillation Code(s): I48.0 - Paroxysmal atrial fibrillation Status: Chronic - Plan 1. Will leave on BIPAP 12/5 cm , FIO2 35 % 2. O2 N/C 5 L when off BiPAP 3. Cardiac evaluation 4. Duoneb nebs qid. 5. Continue antibiotics. 6. Solumedrol 40 mg IV Q8H 7. Symbicort 160/4.5 mcg 1 Puff BID 8. Chest XRay ,CBC,BMP in am (2) Hypertension Qualifiers: Hypertension type: essential hypertension Qualified Code(s): I10 - Essential (primary) hypertension
[2018-02-25] MEDS: Morphine Inj 4 MG/ML Vial IV.PUSH PRN ×2 (12:30→19:55)
[2018-02-25] MEDS: Levofloxacin 500 mg Premix Inj 500 MG/100 ML PIGGYBACK IV.SIG SCH (15:08)
--- NOTE | 2018-02-25 15:48 | ECHRPT ---
Indication: shortness of breathe CONCLUSIONS Wall thickness is normal. Normal left ventricular size. The left ventricular systolic function is hyperdynamic with an estimated ejection fraction in the ra nge of 65- 70%. Trace mitral valve regurgitation. There is trace tricuspid valve regurgitation. BP: / HR: Rhythm: MEASUREMENTS (Male / Female) Normal Values Technical Quality: 2D ECHO LV Diastolic Diameter PLAX 5.4 cm 4.2 - 5.9 / 3.9 - 5.3 cm LV Systolic Diameter PLAX 4.0 cm IVS Diastolic Thickness 1.2 cm 0.6 - 1.0 / 0.6 - 0.9 cm LVPW Diastolic Thickness 1.2 cm 0.6 - 1.0 / 0.6 - 0.9 cm LV Relative Wall Thickness 0.4 RV Internal Dim ED PLAX 3.1 cm LVOT Diameter 1.7 cm Aortic Root Diameter 3.1 cm LA Systolic Diameter LX 2.9 cm 3.0 - 4.0 / 2.7 - 3.8 cm LV Ejection Fraction MOD 4C 70.7 % LV Ejection Fraction 4C AL 71.7 % M-MODE Aortic Root Diameter MM 4.1 cm LA Systolic Diameter MM 3.5 cm LA Ao Ratio MM 0.9 AV Cusp Separation MM 2.4 cm DOPPLER AV Peak Velocity 124.0 cm/s AV Peak Gradient 6.2 mmHg AI Peak Velocity 349.5 cm/s AI Peak Gradient 48.9 mmHg AI Pressure Half Time 282.5 ms Mitral E Point Velocity 47.4 cm/s Mitral A Point Velocity 81.4 cm/s Mitral E to A Ratio 0.6 LV E' Lateral Velocity 3.3 cm/s Mitral E to LV E' Lateral Ratio 14.3 LV E' Septal Velocity 4.4 cm/s Mitral E to LV E' Septal Ratio 10.8 PV Peak Velocity 77.4 cm/s PV Peak Gradient 2.4 mmHg FINDINGS LEFT VENTRICLE Wall thickness is normal. Normal left ventricular size. The left ventricular systolic function is hyperdynamic with an estimated ejection fraction in the ra nge of 65- 70%. There was limited left ventricular wall motion assessment due to poor endocardial visualization, how ever, no obvious regional wall motion abnormalities are present. RIGHT VENTRICLE Normal right ventricular size and systolic function. LEFT ATRIUM The left atrial size is normal. RIGHT ATRIUM The right atrial size is normal. ATRIAL SEPTUM Normal atrial septal thickness without atrial level shunting by limited color doppler interrogation. AORTA The aortic root and proximal ascending aorta are normal in size on limited imaging. MITRAL VALVE Trace mitral valve regurgitation. AORTIC VALVE Trileaflet aortic valve. No aortic valve stenosis or regurgitation. TRICUSPID VALVE There is trace tricuspid valve regurgitation. PULMONARY VALVE The pulmonary valve is not well visualized. VESSELS The inferior vena cava is normal in size. PERICARDIUM No pericardial effusion. Alejo Chan (Electronically Signed) Final Date:25 February 2018 15:47
[2018-02-25] MEDS ORDERED: fentaNYL Citrate Inj 100 MCG/2 ML Ampul IV.PUSH SCH (16:30)
--- NOTE | 2018-02-25 19:53 | MB ---
cc: Kenneth Bales MD DATE: 02/25/2018 REASON FOR CONSULTATION: Abnormal cardiac enzymes. HISTORY OF PRESENT ILLNESS: The patient is a 72-year-old white female, followed in our office by Dr. Torey Hernandez, with a history of coronary artery disease, diabetes, COPD, sleep apnea, paroxysmal atrial fibrillation, hypertension, paroxysmal supraventricular tachycardia, who presented to the hospital with severe substernal chest discomfort and shortness of breath. The patient states she was given 1 or 2 sublingual nitroglycerin with fairly prompt relief of her symptoms. She cannot recall the duration of her chest discomfort. The patient initially presented 02/23/2018 with severe shortness of breath and respiratory distress necessitating intubation and placement on mechanical ventilation. The patient states she has had no other chest pains. She also denies dizziness, syncope, near syncope, palpitations, pedal edema, paroxysmal nocturnal dyspnea. The chest discomfort, described as "pressure", was associated with severe shortness of breath without nausea or diaphoresis. PAST MEDICAL HISTORY: 1. Coronary artery disease status post bypass surgery 02/04/2002. Her last heart catheterization was done by Dr. Ruslan Gonzalez, 10/10/2017, showing 99% complex left main stenosis, totally occluded LAD with patent left internal mammary artery to the LAD, two tandem 50% lesions in the vein graft to the diagonal, totally occluded obtuse marginal with patent vein graft to this vessel, totally occluded right coronary with total occlusion of the vein graft to the posterior descending artery sequential to the posterolateral branch. Few [id number] collaterals were seen. 2. Diabetes. 3. Chronic obstructive pulmonary disease. 4. Obstructive sleep apnea. 5. Hypertension. 6. Hiatal hernia. 7. Paroxysmal atrial fibrillation diagnosed 10/21/2017, status post ablation 10/30/2017. 8. History of wide complex tachycardia diagnosed in the hospital about 2 months ago, felt by Dr. Hernandez to be an aberrantly conducted supraventricular tachycardia. PAST SURGICAL HISTORY: 1. Appendectomy. 2. Coronary artery bypass grafting. 3. Cholecystectomy. 4. Thyroid surgery. CARDIAC MEDICATIONS AT HOME: 1. Aspirin 81 mg daily. 2. Atorvastatin 10 mg at bedtime. 3. Furosemide 40 mg daily. 4. Isosorbide mononitrate 120 mg daily. 5. Potassium chloride 20 mEq daily. 6. Ranexa 1 gram b.i.d. ALLERGIES: PENICILLIN. FAMILY HISTORY: Noncontributory. SOCIAL HISTORY: The patient is a former smoker. She denies alcohol abuse. REVIEW OF SYSTEMS: As in the history of present illness, otherwise negative or noncontributory. She also denies headache, abdominal pain, melena, dyspepsia, fevers. PHYSICAL EXAMINATION: VITAL SIGNS: Blood pressure 118/62 with a pulse 87, respirations 20. GENERAL: She is a well-developed, well-nourished white female, in no acute distress. NECK: Jugular venous pressure is normal. Carotid pulses are 2+ bilaterally and without bruits. CHEST: Reveals diminished breath sounds diffusely. CARDIAC: She has a regular rhythm and rate without S3, S4, or murmur. ABDOMEN: She has a soft, nontender abdomen. Bowel sounds are present. There is no definite hepatosplenomegaly. EXTREMITIES: Reveals no clubbing, cyanosis or edema. DIAGNOSTIC DATA: EKG from 02/25/2018 at 9:33 a.m. shows sinus rhythm, nonspecific ST abnormality. LABORATORY DATA: Includes WBC 13.0, hemoglobin 15.0, platelets 194. Potassium 3.2, BUN 20, creatinine 0.76. CK 224, with 17.8% MB fraction, troponin 6.24. IMAGING: Chest x-ray shows bilateral lower lobe atelectasis versus pneumonia. IMPRESSION: Acute non-ST elevation myocardial infarction in a 72-year-old white female with a history of coronary artery disease status post bypass surgery in 2001 with her last heart catheterization as noted above, 10/10/2017, history of diabetes, chronic obstructive pulmonary disease, sleep apnea, paroxysmal atrial fibrillation and paroxysmal supraventricular tachycardia. At this time, she is chest pain free. I suspect she has had progression of disease in one of her vein grafts, possibly the one to the diagonal. In light of the instability of her symptoms and the abnormal cardiac enzymes, I have recommended she undergo repeat cardiac catheterization with possible percutaneous coronary or graft intervention, the risks of which have been explained to her, including, but not limited to , myocardial infarction, stroke, arrhythmia, bleeding, infection, and renal failure. She agrees to proceed. Echocardiogram today apparently shows excellent left ventricular function with no major valvular abnormalities. RECOMMENDATIONS: 1. Beta cordell and CHAITANYA inhibitor therapy. 2. Cardiac catheterization tomorrow afternoon. 3. Continue heparin drip as started here in the ICU. 4. Continue daily aspirin. MD FREDIS Brunner/litzy , 04:27 PM , 04:40 PM SILVANA
[2018-02-25 20:22] LABS: Potassium 3.7 meq/L (3.5-5.1)
[2018-02-25 20:30] LABS: Creatine Kinase 135 U/L (26-192)
[2018-02-25] MEDS: Sodium Chloride 0.9% 2 ML Flush BID IV.FLUSH SCH (20:32)
[2018-02-25 20:57] LABS: Troponin I 5.11 ng/mL (0.02-0.05)
[2018-02-25] MEDS ORDERED: Metoprolol Tartrate 25 MG Tablet PO SCH (21:00)
[2018-02-25 21:09] LABS: Creatine Kinase MB 16.1 ng/mL (0.5-3.6)
[2018-02-26 02:01] LABS: Baso % (Auto) 0.1 % (0.0-2.0); Hematocrit 45.5 % (35.0-46.0); Hemoglobin 15.4 gm/dL (11.6-15.3); Lymph # (Auto) 0.9 th/mm3 (1.0-4.8); Lymph % (Auto) 7.3 % (9.0-44.0); Mean Corpuscular HGB Conc 33.8 % (32.0-36.0); Mean Corpuscular Hemoglobin 28.5 pg (27.0-34.0); Mean Corpuscular Volume 84.4 fL (80.0-100.0); Mean Platelet Volume 8.2 fL (7.0-11.0); Mono # (Auto) 0.6 th/mm3 (0.0-0.9); Mono % (Auto) 4.5 % (0.0-8.0); Neut # (Auto) 10.9 th/mm3 (1.8-7.7); Neut % (Auto) 88.1 % (16.0-70.0); Platelet Count 196 th/mm3 (150-450); Red Blood Count 5.39 mil/mm3 (4.00-5.30); Red Cell Distribution Width 15.8 % (11.6-17.2); White Blood Count 12.4 th/mm3 (4.0-11.0)
[2018-02-26 02:30] LABS: Calcium 8.6 mg/dL (8.5-10.1); Carbon Dioxide 26.8 meq/L (21.0-32.0); Magnesium 2.4 mg/dL (1.5-2.5); Phosphorus 2.4 mg/dL (2.5-4.9); Potassium 3.4 meq/L (3.5-5.1)
[2018-02-26 02:35] LABS: Troponin I 4.25 ng/mL (0.02-0.05)
[2018-02-26] MEDS: Insulin NovoLIN Regular Correctional Sugar Inj SQ SCH ×4 (02:50→13:08)
[2018-02-26] MEDS: Morphine Inj 4 MG/ML Vial IV.PUSH PRN ×4 (04:07→22:25)
[2018-02-26] MEDS: Chlorhexidine Gluconate 2% 1 Pack (2 Cloths) TOPICAL SCH (04:09)
--- NOTE | 2018-02-26 04:41 | XR ---
EXAM DATE: 02/26/2018 12:00 AM EDT AGE/SEX: 72 years / Female INDICATIONS: Short of breath. CLINICAL DATA: This is the patient's subsequent encounter. Patient reports that signs and symptoms h ave been present for 1 week and indicates a pain score of 0/10. MEDICAL/SURGICAL HISTORY: Cardiovascular disease. Diabetes. Chronic obstructive pulmonary disea se. Hypertension. CABG. Appendectomy. Cholecystectomy. COMPARISON: [facility] [place] 1V SINGLE AP, 02/25/2018. . FINDINGS: The cardiac silhouette is enlarged in transverse diameter. Median sternotomy wires are present. There is improving right basilar atelectasis. The left lung is free of acute parenchymal opacity. No pleur al effusions are identified. CONCLUSION: Resolving right basilar atelectasis Electronically signed by: Flo Swanson MD 02/26/2018 4:39 AM EDT
[2018-02-26] MEDS: MethylPREDNISolone Sod Succinate Inj 40 MG/ML Vial IV.PUSH SCH ×3 (05:49→20:04)
[2018-02-26 08:38] LABS: Troponin I 3.29 ng/mL (0.02-0.05)
--- NOTE | 2018-02-26 08:42 | P.PNCA ---
Subjective Interval history: No CP, dyspnea, dizziness, palpitations. Slept well. Medications and Allergies Active Medications: Active Medications Al Hydroxide/Mg Hydroxide (Milk Of Lakesha Liq) 30 ml PO Q12H PRN PRN Reason: Mild Constipation Albuterol (Duoneb Neb (Indu)) 1 ampul NEB Q4HR NEB [facility] Last Admin: 02/26/18 03:38 Dose: 1 ampul Albuterol (Duoneb Neb (Prn)) 1 ampul NEB Q2HR NEB PRN PRN Reason: WHEEZING Aspirin (Ecotrin) 81 mg PO DAILY [facility] Last Admin: 02/25/18 10:20 Dose: 81 mg Bisacodyl (Dulcolax Supp) 10 mg RECTAL DAILY PRN PRN Reason: SEVERE CONSITIPATION Budesonide/Formoterol Fumarate (Symbicort 160/4.5 Mcg Inh) 2 puff INH BID [facility] Last Admin: 02/25/18 23:19 Dose: Not Given Chlorhexidine Gluconate (Chlorhexidine 2% Cloth) 3 pack TOPICAL DAILY@0400 PRN PRN Reason: Extra cloth needed Stop: 03/01/18 03:59 Chlorhexidine Gluconate (Chlorhexidine 2% Cloth) 3 pack TOPICAL DAILY@0400 [facility] Stop: 03/01/18 03:59 Last Admin: 02/26/18 04:09 Dose: 3 pack Dextrose (D50w Vial) 50 ml IV.PUSH UNSCH PRN PRN Reason: PER HYPOGLYCEMIA PROTOCOL Diphenhydramine HCl (Benadryl) 50 mg PO PIPE [employer]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 [facility] Stop: 03/01/18 16:29 Enalapril Maleate (Vasotec) 5 mg PO DAILY [facility] Fentanyl Citrate (Fentanyl Inj) 50 mcg IV.PUSH [employer] [facility] Stop: 03/01/18 16:29 Glucagon (Glucagon Inj) 1 mg OTHER PRN PRN PRN Reason: for Hypoglycemia Protocol Sodium Chloride (Ns Inj) 1,000 mls @ 0 mls/hr IV.SIG BOLUS [facility] Levofloxacin/Dextrose (Levaquin 500 Mg Premix Inj) 500 mg in 100 mls @ 100 mls/ hr IV.SIG Q24H [facility] Last Infusion: 02/25/18 16:18 Dose: Infused Magnesium Sulfate 4 gm/ Sodium (Chloride) 100 mls @ 50 mls/hr IV.SIG UNSCH PRN PRN Reason: For Magnesium 0.9 - 1.1 mg/dL Magnesium Sulfate 2 gm/ Sodium (Chloride) 100 mls @ 50 mls/hr IV.SIG UNSCH PRN PRN Reason: For Magnesium 1.2 - 1.6 mg/dL Potassium Chloride (Kcl 40 Meq Premix Inj) 40 meq in 100 mls @ 25 mls/hr IV.SIG Q2H PRN PRN Reason: For Potassium 2.8 - 3.2 mEq/L Potassium Chloride (Kcl 20 Meq Premix Inj) 20 meq in 100 mls @ 50 mls/hr IV.SIG Q2H PRN PRN Reason: For Potassium 3.3 - 3.5 mEq/L Last Infusion: 02/24/18 21:47 Dose: Infused Potassium Chloride (Kcl 40 Meq Premix Inj) 40 meq in 100 mls @ 25 mls/hr IV.SIG UNSCH PRN PRN Reason: For Potassium 3.3 - 3.5 mEq/L Potassium Chloride (Kcl 20 Meq Premix Inj) 20 meq in 100 mls @ 50 mls/hr IV.SIG Q2H PRN PRN Reason: For Potassium 2.8 - 3.2 mEq/L Last Infusion: 02/25/18 20:38 Dose: Infused Potassium Phosphate 30 mmol/ (Sodium Chloride) 260 mls @ 42 mls/hr IV.SIG UNSCH PRN PRN Reason: SEE LABEL COMMENTS Sodium Phosphate 30 mmol/ (Sodium Chloride) 260 mls @ 42 mls/hr IV.SIG UNSCH PRN PRN Reason: For Phosphorus < 2.5 mg/dL Heparin Sodium/Dextrose (Heparin/D5w 25,000 U/250 Ml) 25,000 unit in 250 mls @ 8 mls/hr IV.CONT TITRATE PRN; Protocol PRN Reason: Per Protocol Last Admin: 02/25/18 10:50 Dose: 800 units/hr, 8 mls/hr Sodium Chloride (Ns Inj) 1,000 mls @ 75 mls/hr IV.CONT .[id number] INDU Insulin Human Regular (Novolin R Correctional Sugar Inj) 0 units SQ Q4HR INDU; Protocol Last Admin: 02/26/18 04:11 Dose: 5 units Labetalol HCl (Trandate Inj) 20 mg IV.PUSH Q4H PRN PRN Reason: HYPERTENSION Last Admin: 02/24/18 23:08 Dose: 20 mg Lactulose (Lactulose Liq) 30 ml PO DAILY PRN PRN Reason: SEVERE CONSITIPATION Magnesium Oxide (Mag-Ox) 800 mg PO UNSCH PRN PRN Reason: For Magnesium 1.2 - 1.6 mg/dL Methylprednisolone Sodium Succinate (Solumedrol Inj) 40 mg IV.PUSH Q8HR [facility] Last Admin: 02/26/18 05:49 Dose: 40 mg Metoprolol Tartrate (Lopressor) 25 mg PO BID [facility] Last Admin: 02/25/18 20:32 Dose: 25 mg Midazolam HCl (Versed Inj) 1 mg IV.PUSH [employer] [facility] Stop: 03/01/18 16:29 Morphine Sulfate (Morphine Inj) 4 mg IV.PUSH Q2H PRN PRN Reason: PAIN SCALE 7-10 Last Admin: 02/26/18 04:07 Dose: 4 mg Pantoprazole Sodium (Protonix Inj) 40 mg IV.PUSH DAILY [facility] Last Admin: 02/25/18 08:02 Dose: 40 mg Potassium Bicarb/Potassium Chloride (K-Lyte Cl Eff) 50 meq PO UNSCH PRN PRN Reason: For Potassium 3.3 - 3.5 mEq/L Potassium Phosphate (K-Phos Original) 2,000 mg PO Q4H PRN PRN Reason: Phosphorus Less Than 2.5 mg/dL Last Admin: 02/26/18 06:07 Dose: 2,000 mg Potassium Phosphate (K-Phos Original) 2,000 mg PO UNSCH PRN PRN Reason: SEE LABEL COMMENTS Sennosides (Senokot) 17.2 mg PO Q12H PRN PRN Reason: Moderate Constipation Sodium Chloride (Ns Flush) 2 ml IV.FLUSH BID [facility] Last Admin: 02/25/18 20:32 Dose: 2 ml Sodium Chloride (Ns Flush) 2 ml IV.FLUSH PRN PRN PRN Reason: FLUSH AFTER USING IV ACCESS Allergies Allergy/AdvReac Type Severity Reaction Status Date / Time penicillin G Allergy Severe Anaphylaxis Verified 12/06/17 23:40 Home Medications Medication Instructions Recorded Confirmed Type aspirin [Aspirin Childrens] 81 mg PO DAILY 02/23/18 02/23/18 History atorvastatin 10 mg PO HS 02/23/18 02/23/18 History furosemide 40 mg PO DAILY 02/23/18 02/23/18 History isosorbide mononitrate 120 mg PO DAILY 02/23/18 02/23/18 History potassium chloride 20 meq PO DAILY 02/23/18 02/23/18 History prednisone 20 mg PO DAILY 02/23/18 02/23/18 History promethazine 12.5 mg PO Q6H PRN 02/23/18 02/23/18 History ranolazine [Ranexa] 1,000 mg PO Q12H 02/23/18 02/23/18 History Physical Exam Vital signs: Vital Signs 02/25/18 08:50 02/25/18 09:00 02/25/18 10:00 Temperature Pulse Rate 79 80 82 Respiratory Rate 21 Blood Pressure Pulse Oximetry 02/25/18 11:41 02/25/18 12:00 02/25/18 14:00 Temperature 98.4 F Pulse Rate 100 H 85 83 Respiratory Rate 20 20 Blood Pressure 175/89 H Pulse Oximetry 99 95 02/25/18 15:23 02/25/18 16:00 02/25/18 18:00 Temperature 98.8 F Pulse Rate 87 82 80 Respiratory Rate 20 20 Blood Pressure 152/67 H Pulse Oximetry 98 02/25/18 19:45 02/25/18 20:00 02/25/18 22:00 Temperature 98.6 F Pulse Rate 83 82 77 Respiratory Rate 20 20 Blood Pressure 156/72 H Pulse Oximetry 97 97 02/25/18 23:09 02/26/18 00:00 02/26/18 02:00 Temperature 98.4 F Pulse Rate 73 72 78 Respiratory Rate 20 20 Blood Pressure 155/75 H Pulse Oximetry 99 02/26/18 03:38 02/26/18 04:00 02/26/18 04:48 Temperature 97 F L Pulse Rate 76 80 Respiratory Rate 24 21 21 Blood Pressure 146/76 H Pulse Oximetry 98 02/26/18 06:00 Temperature Pulse Rate 78 Respiratory Rate Blood Pressure Pulse Oximetry Intake & Output 02/25/18 02/26/18 02/26/18 18:59 06:59 18:59 Intake Total 880 / 880 600 / 600 Output Total 2500 / 2500 Balance -1620 / -1620 600 / 600 Weight 69.5 kg Intake: IV 400 / 400 100 / 100 Levaquin 500 mg Premix Inj 500 100 / 100 mg In 100 ml @ 100 mls/hr IV. SIG Q24H [facility] Rx#:[id number] KCl 20 mEq Premix Inj 20 meq In 300 / 300 100 / 100 100 ml @ 50 mls/hr IV.SIG Q2H PRN Rx#:[id number] Oral 480 / 480 500 / 500 Output: Urine 2500 / 2500 Other: # Voids 1 1 # Bowel Movements 1 - Constitutional no acute distress - Routine Neck Exam Absent: JVD - Routine Respiratory Exam Present: rhonchi, distant breath sounds - Routine Cardiovascular Exam Present: RRR, S1, S2. Absent: murmur, gallop - Routine Abdominal Exam Present: soft, normoactive bowel sounds. Absent: tenderness, organomegaly - Routine Extremities Exam Absent: cyanosis, clubbing, edema - Urinary Catheter Management Indwelling Urethral Catheter Cath placed during this visit: yes, but has since been removed by the nurse Reason for continuing: Continue criteria not met Insertion date: 02/23/18 Insertion time: 11:46 Removal date: 02/24/18 Removal time: 10:30 Results 02/26/18 01:32 02/26/18 01:32 Cardiac Enzymes 02/24/18 02/25/18 02/25/18 Range/Units 22:30 08:20 08:20 CK-MB (CK-2) 39.9 H (0.5-3.6) ng/mL Troponin I 0.35 H D 6.24 H* D (0.02-0.05) ng/mL B-Natriuretic Peptide 1061 H (0-100) pg/mL 02/25/18 02/26/18 Range/Units 19:39 01:32 CK-MB (CK-2) 16.1 H (0.5-3.6) ng/mL Troponin I 5.11 H* D 4.25 H* D (0.02-0.05) ng/mL B-Natriuretic Peptide (0-100) pg/mL Coagulation 02/25/18 02/25/18 02/25/18 Range/Units 08:20 10:16 16:07 PT 11.2 (9.8-11.6) sec APTT 23.4 L 34.9 H D (24.3-30.1) sec B-Natriuretic Peptide 1061 H (0-100) pg/mL CBC 02/25/18 02/26/18 Range/Units 06:02 01:32 WBC 13.0 H 12.4 H (4.0-11.0) th/mm3 RBC 5.12 5.39 H (4.00-5.30) mil/mm3 Hgb 15.0 15.4 H (11.6-15.3) gm/dL Hct 43.9 45.5 (35.0-46.0) % Plt Count 194 D 196 (150-450) th/mm3 Neut # (Auto) 11.3 H 10.9 H (1.8-7.7) th/mm3 Lymph # (Auto) 0.9 L 0.9 L (1.0-4.8) th/mm3 Tama # (Auto) 0.7 0.6 (0.0-0.9) th/mm3 Eos # (Auto) 0.0 0.0 (0.0-0.4) th/mm3 Baso # (Auto) 0.0 0.0 (0.0-0.2) th/mm3 Comprehensive Metabolic Panel 02/25/18 02/25/18 02/26/18 Range/Units 06:02 19:39 01:32 Sodium 138 133 L (136-145) meq/L Potassium 3.2 L 3.7 3.4 L (3.5-5.1) meq/L Chloride 100 95 L (98-107) meq/L Carbon Dioxide 27.5 26.8 (21.0-32.0) meq/L BUN 20 H 21 H (7-18) mg/dL Creatinine 0.76 0.72 (0.50-1.00) mg/dL Calcium 9.5 D 8.6 D (8.5-10.1) mg/dL Intake and Output 02/25/18 02/26/18 02/26/18 22:59 06:59 14:59 Intake Total 880 / 880 500 / 500 Output Total 2500 / 2500 Balance -1620 / -1620 500 / 500 Intake: IV 400 / 400 Levaquin 500 mg Premix Inj 500 100 / 100 mg In 100 ml @ 100 mls/hr IV. SIG Q24H [facility] Rx#:[id number] KCl 20 mEq Premix Inj 20 meq In 300 / 300 100 ml @ 50 mls/hr IV.SIG Q2H PRN Rx#:[id number] Oral 480 / 480 500 / 500 Output: Urine 2500 / 2500 Other: # Voids 1 1 # Bowel Movements 1 Weight 69.5 kg - Imaging and Cardiology Imaging: Impressions Chest X-Ray 02/25/18 00:00 CONCLUSION: Bilateral lower lobe atelectasis versus pneumonia. This is new when compared with the prior exam. Chest X-Ray 02/26/18 00:00 CONCLUSION: Resolving right basilar atelectasis Assessment and Plan - Assessment (1) Non-ST elevation (NSTEMI) myocardial infarction Code(s): I21.4 - Non-ST elevation (NSTEMI) myocardial infarction Status: Acute Plan: Stable overnight. No further angina. For cath today. Suspect she has had progression of CAD in her vein graft to the diagonal. Continue beta cordell, CHAITANYA-I, aspirin. (2) Paroxysmal atrial fibrillation Code(s): I48.0 - Paroxysmal atrial fibrillation Status: Chronic Plan: Stable status post ablation about 4 months ago. Continue to monitor. (3) Hypertension Code(s): I10 - Essential (primary) hypertension Status: Chronic Plan: Mostly hypertensive. Increase beta cordell, CHAITANYA-I dosing. (4) Wide-complex tachycardia Code(s): I47.2 - Ventricular tachycardia Status: Chronic Plan: Stable rhythm status. Dr. Hernandez felt her wide complex tachycardia last admission was more consistent with aberrantly conducted SVT. Continue beta cordell therapy. - Plan Code Status: full code Discussed Condition With: patient (3) Hypertension Qualifiers: Hypertension type: essential hypertension Qualified Code(s): I10 - Essential (primary) hypertension
[2018-02-26] MEDS: Sod Chloride 0.9% Inj 1,000 ML IV.CONT SCH ×4 (08:59→22:28)
[2018-02-26] MEDS: Metoprolol Tartrate 25 MG Tablet PO SCH ×2 (09:00→20:05)
[2018-02-26] MEDS: Sodium Chloride 0.9% 2 ML Flush BID IV.FLUSH SCH ×2 (09:01→20:05)
[2018-02-26] MEDS: Pantoprazole Inj 40 MG Vial IV.PUSH SCH (09:02)
[2018-02-26] MEDS ORDERED: Dextrose 50% in Water 50 ML Vial IV.PUSH PRN (12:40)
--- NOTE | 2018-02-26 12:50 | P.PNCC ---
Subjective Subjective Remarks/Hospital Course: patient is a 72-year-old female with a past medical history of hypertension, coronary artery disease, COPD, paroxysmal atrial fibrillation, diabetes mellitus , who presented to [facility] ED via EMS for respiratory distress. When EMS arrived, the patient became unresponsive, cyanotic and she was subsequently intubated. On arrival to the ER, she was tachycardic with heart rate of 116 and ABG post intubation showed acute hypercapnic respiratory failure with a pH of 7.29, CO2 of 56, pO2 of 137, bicarbonate 27, and saturation of 97%. A chest x-ray showed no evidence of any acute cardiopulmonary disease. When seen, the patient is sedated with Diprivan and on full mechanical ventilation 02/24 Patient is on CPAP 02/15 with 30% FIO2. Awake and alert hypertensive over night given Labetalol and placed on Kuldip drip. Afebrile. 02/25 Patient was extubated yesterday placed on BIPAP last night for acute resp acidosis repeat ABG at midnight showed improvements with PH: 7.37/CO2:44, awake and alert. CXR this morning showed b/l lower lobe atelectasis vs pneumonia, afebrile. Hypertensive. Subjective 02/26 -currently on 3 L nasal cannula. Troponin is downward trending. Increased metoprolol today per cardiology along with enalapril. No bowel movement. Objective Vital Signs / I&O: Vital Signs 02/25/18 14:00 02/25/18 15:23 02/25/18 16:00 Temperature 98.8 F Pulse Rate 83 87 82 Respiratory Rate 20 20 Blood Pressure 152/67 H Pulse Oximetry 98 02/25/18 18:00 02/25/18 19:45 02/25/18 20:00 Temperature 98.6 F Pulse Rate 80 83 82 Respiratory Rate 20 20 Blood Pressure 156/72 H Pulse Oximetry 97 97 02/25/18 22:00 02/25/18 23:09 02/26/18 00:00 Temperature 98.4 F Pulse Rate 77 73 72 Respiratory Rate 20 20 Blood Pressure 155/75 H Pulse Oximetry 99 02/26/18 02:00 02/26/18 03:38 02/26/18 04:00 Temperature 97 F L Pulse Rate 78 76 80 Respiratory Rate 24 21 Blood Pressure 146/76 H Pulse Oximetry 98 02/26/18 04:48 02/26/18 06:00 02/26/18 08:00 Temperature 97.6 F Pulse Rate 78 76 Respiratory Rate 21 12 Blood Pressure 175/84 H Pulse Oximetry 97 02/26/18 08:44 02/26/18 11:21 Temperature Pulse Rate 82 68 Respiratory Rate 24 23 Blood Pressure Pulse Oximetry 97 Intake & Output 02/25/18 02/26/18 02/26/18 18:59 06:59 18:59 Intake Total 880 / 880 600 / 600 Output Total 2500 / 2500 Balance -1620 / -1620 600 / 600 Weight 69.5 kg Intake: IV 400 / 400 100 / 100 Levaquin 500 mg Premix Inj 500 100 / 100 mg In 100 ml @ 100 mls/hr IV. SIG Q24H [facility] Rx#:[id number] KCl 20 mEq Premix Inj 20 meq In 300 / 300 100 / 100 100 ml @ 50 mls/hr IV.SIG Q2H PRN Rx#:[id number] Oral 480 / 480 500 / 500 Output: Urine 2500 / 2500 Other: # Voids 1 1 # Bowel Movements 1 Result Diagrams: 02/26/18 01:32 02/26/18 01:32 Other Results: Microbiology 02/23/18 11:56 Blood - Peripheral Aerobic Blood Culture - Preliminary No growth in 3 days 02/23/18 11:56 Blood - Peripheral Anaerobic Blood Culture - Preliminary No growth in 3 days 02/23/18 11:39 Blood - Peripheral Aerobic Blood Culture - Preliminary No growth in 3 days 02/23/18 11:39 Blood - Peripheral Anaerobic Blood Culture - Preliminary No growth in 3 days 02/23/18 14:15 Sputum - Endotracheal Gram Stain - Final 02/23/18 14:15 Sputum - Endotracheal Sputum Culture - Preliminary Mold species-ID to follow Imaging: Chest X-Ray 02/23/18 11:43 CONCLUSION: No evidence of pneumonia. Chest X-Ray 02/25/18 00:00 CONCLUSION: Bilateral lower lobe atelectasis versus pneumonia. This is new when compared with the prior exam. Chest X-Ray 02/26/18 00:00 CONCLUSION: Resolving right basilar atelectasis Objective Remarks: GENERAL: Patient is 72 yo female currently resting but on nasal cannula in no acute distress SKIN: Warm and dry. HEAD: Normocephalic. EYES: No scleral icterus. No injection or drainage. NECK: Supple, trachea midline. No JVD or lymphadenopathy. CARDIOVASCULAR: Regular rate and rhythm. S1, S2 predose 4. No murmur without murmurs, gallops, or rubs. RESPIRATORY: Breath sounds equal bilaterally. No accessory muscle use. GASTROINTESTINAL: Abdomen soft, non-tender, nondistended. MUSCULOSKELETAL: No cyanosis, or edema. Neuro: Awake and alert and moving all 4 extremities spontaneously Assessment and Plan - Assessment and Plan Plan: 1. Acute hypercapnic and hypoxemic respiratory failure. 2. Chronic obstructive pulmonary disease exacerbation. 3. Leukocytosis 4. Hyperglycemia. 5. History of coronary artery disease. 6. Hypertension. 7. Diabetes mellitus. 8. Obstructive sleep apnea. 9 NSTEMI with elevated troponin 10. Acute hypokalemia and hypophosphatemia Plan Neuro: Monitor neuro status. Awake and alert. Continue acetaminophen 650 every 6 hours as needed fever Pulm: Continue with oxygen and maintain sats>92% Bronchodilators(albuterol/ipratropium aerosols every 6 hours with albuterol aerosols every 2 hours as needed/budesonide/formoterol 160/4.5 twice daily), IS, methylprednisolone succinate 40 mg IV every 8 hours. Pulm is following-Dr. Shirley CV: Monitor HR and BP and maintain MAP>[address] on metoprolol tartrate 50 mg twice daily and enalapril 5 mg twice daily for hypertension. Restart isosorbide mononitrate 60 mg daily for hypertension. Resume Ranolazine thousand milligrams twice daily for angina Echo - Wall thickness is normal. Normal left ventricular size. The left ventricular systolic function is hyperdynamic with an estimated ejection fraction in the range of 65-70%. There was limited left ventricular wall motion assessment due to poor endocardial visualization, however, no obvious regional wall motion abnormalities are present. Trop :0.35 last night, repeat trop 6.24 downtrending to 3. Followed by Dr. shon casas- spoke to Dr. Bales is following At home on furosemide 40 mg daily with potassium chloride 20 mg daily. Will restart furosemide in a.m. 02/27 Renal/FEN/: Monitor renal function, I's and O's electrolyte replacement per protocol. GI:on pantoprazole 40 mg daily daily for Ezequiel prophylaxis. On PO diet ID: Continue with levofloxacin. Patient is allergic to PCN Monitor for signs of infection(fever and WBC). Follow up on blood and sputum cx 02/23: NGTD Check Pneumonia and Legionella urinary Ag Heme: Monitor CBC. Endo: SSI with Accu-Cheks for glycemic GI prophylaxis with Protonix 40 mg daily DVT with SCD, heparin gtt Level 2 follow-up. Stable from critical care medicine standpoint. Assign care to hospitalist in a.m. 02/27
[2018-02-26] MEDS ORDERED: Potassium Chlor 20 mEq Premix 20 MEQ/100 ML PIGGYBACK IV.SIG ONE (13:45)
[2018-02-26] MEDS: Levofloxacin 500 mg Premix Inj 500 MG/100 ML PIGGYBACK IV.SIG SCH (14:45)
[2018-02-26] MEDS: Budesonide-Formoterol 160/4.5 MCG 6 GM Inhaler INH SCH ×2 (15:28→22:01)
[2018-02-26] MEDS ORDERED: Heparin/NS PF Inj 1,000 ML ONE (15:34)
[2018-02-26] MEDS ORDERED: fentaNYL Citrate Inj 100 MCG/2 ML Ampul ONE ×2 (15:35→15:47)
[2018-02-26] MEDS ORDERED: Nitroglycerin SL 400 MCG/ACT 4.9 GM Spray Bottle SL ONE (16:36)
--- NOTE | 2018-02-26 16:39 | CATHPROC ---
[facility] HIS Report Study Information Study Number Admission Scheduled Start Study Start [id number] Feb 23 2018 1:00PM 02/26/2018 Feb 26 2018 3:27PM [facility] Admit Source Facility Department Other [facility] - Corporate Compliance Officer Physician and Clinical Staff Initial Kenneth Hearn Hebrew Cantor Marie Davis,RN Recorder Kayleen Franco,RT(R) Scrub Marina Parikh,UNDERGROUND MINER TECH2 Procedures Performed Procedure Location (Site) Vessel Name Angiogram LV LV Ventricle Coronary Angiograms LCA Left Coronary Coronary Angiograms RCA Right Coronary Coronary Angiograms [place] Left Coronary Coronary Angiograms SVG-DIAG Left Coronary Coronary Angiograms SVG-OM CIRC L Heart Cath Wire insertion Fem Art (right) Femoral Art Equipment Time Medical Device Assembler Description Size Mfg Part Number Used/Scraped TRANSDUCER, TRUWAVE [id number] 15:30 [employer] CONNER * Used W/STOCKCOCK *[id number] 16:27 [employer] MEDICAL VASCADE, FR6 CLOSURE SYSTEM FR 6\\7 Used *[id number] [id number] *[id number] 534-660T *[id number] 534-620T *[id number] 534-517T *[id number] 534-617T *[id number] 534-622T *[id number] 534-672T *[id number] 534-650S *[id number] 15:30 [employer] BLANKET,WARM AIR CCL * Used *[id number] 15:30 [employer] PACK, CCL CUSTOM * Used *[id number] 15:30 [employer] PACER PEN, SKIN DUAL W/ RULER * Used *[id number] 15:30 [employer] MEDICAL SHEATH, FR6.5 PRELUDE 11CM FR 6.5 038ACT Used *[id number] 15:30 [employer] MEDICAL WIRE, 3MMJ .035 180CM 180CM Used *[id number] 16:04 [employer] MEDICAL WIRE, EXCHANGE 260CM 3MMJ 260CM Used *[id number] 16:04 [employer] MEDICAL WIRE, EXCHANGE 260CM 3MMJ 260CM Used *[id number] 15:30 [facility] MANIFOLD, 4 PORT * Used *[id number] 16:15 NAMIC TUBING, HIGH PRESSURE 20" 20" Used *[id number] 15:30 [employer] OMNIPAQUE, 350 MG, 150ML 150ML [id number] Used History: Current Medications Medication Dosage/Unit Route Frequency Last Date/Time Taken 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 (any) 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 History: Allergies Allergy Reaction penicillin G Anaphylaxis History: Risk Factors Family History of Hypertension Dyslipidemia Previous RI Previous Heart Failure Premature CAD Yes Yes No Yes Yes Prior Valve Prior PCI Prior CABG Prior CABGDate Surgery No No Yes 02/04/2002 Cerebrovascular Peripheral Artery Chronic Lung On Dialysis Diabetes Disease Disease Disease No No No Yes No History: Risk Factors Selection Items Current Smoker History: Stress Tests Stress or Imaging Studies Performed No History: Other Current Smoker Method Packs a Day Years Used Pack Years No Cigarettes 2 50 100 Labs Hgb (g/dl) Hct (%) WBC (l/cumm) Platelets (thousands) 11.60-17.00 35.00-51.00 4.00-11.00 150.00-450.00 15.4 45.5 12.4 196 Glucose (mg/dl) BUN (mg/dl) Creatinine (mg/dl) BUN:Creatinine (1:x) 74.00-106.00 7.00-18.00 0.50-1.30 10.00-20.00 204 21 0.7 30 Na (meq/l) K (meq/l) 136.00-145.00 3.50-5.10 133 3.4 INR (PTT:PT) 0.90-1.10 1.1 Troponin I (ng/ml) CPK (u/l) CPK-MB (ng/ML) 0.02-0.05 26.00-308.00 0.50-3.60 3.29 91 Not Drawn Medication Medication Total Dose (Bolus/Oral) Medication Total Dosage/Unit 1% XYLOCAINE 20 mL FENTANYL 200 mcg NTG (IC) 100 mcg VERSED 3 mg Medications (Bolus/Oral) Medication Time Given Dosage/Unit Administered By Reason FENTANYL 02/26/2018 3:38:17 PM 50 mcg Marie Davis 50 mcg FENTANYL given in lab by Marie Davis, WEI via Peripheral IV. FENTANYL 02/26/2018 3:46:50 PM 50 mcg Marie Davis 50 mcg FENTANYL given in lab by Marie Davis RN via Peripheral IV. VERSED 02/26/2018 3:51:31 PM 1 mg Adamy, Marie 1 mg VERSED given in lab by Marie Davis RN via Peripheral IV. 1% XYLOCAINE 02/26/2018 3:52:31 PM 20 mL Kenneth Bales 20 mL 1% XYLOCAINE given in lab by Kenneth Bales in Right Groin via Subcutaneous. VERSED 02/26/2018 4:00:58 PM 1 mg Adamy, Marie 1 mg VERSED given in lab by Marie Davis RN via Peripheral IV. FENTANYL 02/26/2018 4:01:12 PM 50 mcg Chanelle Davisnifer 50 mcg FENTANYL given in lab by Marie Davis RN via Peripheral IV. VERSED 02/26/2018 4:12:19 PM 1 mg Adamy, Marie 1 mg VERSED given in lab by Marie Davis RN via Peripheral IV. FENTANYL 02/26/2018 4:13:02 PM 50 mcg Radha Davisfer 50 mcg FENTANYL given in lab by Marie Davis RN via Peripheral IV. NTG (IC) 02/26/2018 4:38:09 PM 100 mcg Radha Davisfer 100 mcg NTG (IC) given in lab by Marie Davis RN via Intra-coronary. Medication (Drip) Medication Time Given Dosage/Unit Concentration/Unit Diluent (ml) Solutio n IV Solutions 02/26/2018 3:27:58 PM 0 mL (IV) 500 NaCl .9 IV Solutions given in lab by Marie Davis RN in Left Hand via Peripheral IV. Pump/Drip Flow = 20 ml/hr using NaCl .9. Initial Case Assessment Cardiovascular HR Rhythm NIBP Chest Pain 70 reg 156/86 0 Edema Present Skin color Skin None Normal Warm Circulatory - Right Pulses Dorsalis Pedis Femoral 2 3 Scale (0,1,2,3,4,d) Circulatory - Left Pulses Dorsalis Pedis Femoral 2 3 Scale (0,1,2,3,4,d) Circulatory - Lower Extremities Color Lower Right Color Lower Left Normal Normal Neurological State Oriented to time-place- Alert Moves all extremities person Respiration - General Respiration Rate SpO2 (%) O2 (lpm) (B/min) 12 94 2 Final Case Assessment Cardiovascular HR Rhythm NIBP Chest Pain 80 reg 172/105 0 Edema Present Skin color Skin None Normal Warm Circulatory - Right Pulses Dorsalis Pedis Femoral 2 3 Scale (0,1,2,3,4,d) Circulatory - Left Pulses Dorsalis Pedis Femoral 2 3 Scale (0,1,2,3,4,d) Circulatory - Lower Extremities Color Lower Right Color Lower Left Normal Normal Neurological State Oriented to time-place- Alert Moves all extremities person Respiration - General Respiration Rate SpO2 (%) O2 (lpm) (B/min) 19 94 2 Chronological Log Time Study Chronological Log 15:17:29 heparin discontinued in pts room 15:26:59 Patient arrived via Bed. 15:27:00 Patient Name, D.O.B, / Armband Verified By R.N. 15:27:01 Consent signed by the physician and the patient and verified by the Corporate Compliance Officer staff. 15:27:01 Pre-op and post- op instructions given; patient acknowledges understanding of instructions. 15:27:03 Verbal Stimulation=2 Physical Stimulation=2 Airway=2 Respiration=2 TOTAL=8. (0=absent, 1=li mited, 2=present) 15:27:15 Patient has been NPO for More than 6Hrs. 15:27:15 Skin Breakdown-none 15:27:18 A # 20 IV was noted in the Antecubital (right). Grade = 0 15:27:34 A # 18 IV was noted in the Hand (left). Grade = 0 IV Solutions given in lab by Marie Davis, RN in Left Hand via Peripheral IV. Pump/Drip Flow = 20 ml/hr using NaCl 15:27:58 .9. Vitals capture started with the following parameters, Patient=Adult, Interval=5 min, Initial Pr ngdjrx=695 mmHg, 15:30:25 Deflation Rate=5 mmHg, Cuff placed on Left Arm 15:31:25 HR=71 bpm, ZSSJ=843/85 mmhg, SpO2=94 %, Pain=0, Jake=10, Hahn=2 15:35:58 HR=68 bpm, AIMW=727/88 mmhg, SpO2=94.0 %, Resp=13 B/min, Pain=0, Jake=10, Hahn=2 15:38:17 50 mcg FENTANYL given in lab by Marie Dvais, RN via Peripheral IV. 15:40:08 Reference ECG taken 15:41:01 HR=67 bpm, DYTR=143/86 mmhg, SpO2=95.0 %, Resp=12 B/min, Pain=0, Jake=10, Hahn=2 15:41:03 History and physical on the chart or being dictated. Assessment: Initial Case, HR=70 BPM, Rhythm=reg, ATQR=501/86 mmhg, Chest Pain=0, Edema=None, Co lena=Normal, Skin = Warm Right Pulses: Prabhu Ped=2, Femoral=3 Left Pulses: Prabhu Ped=2, Femoral=3 15:41:05 Lower Right Extremities: Color=Normal Lower Left Extremities: Color=Normal Neurological: State=Alert, Ox3, [place] Respiration: Resp=12 B/min, SpO2=94 %, O2=2 lpm 15:41:38 Bilateral groins prepped with 2% chlorhexidine, and draped after a 3 minute waiting time. 15:41:41 MD paged 15:43:38 Pressure channel 1 zeroed. 15:46:04 HR=71 bpm, UXXZ=343/85 mmhg, SpO2=95.0 %, Resp=21 B/min, Pain=0, Jake=10, Hahn=2 15:46:23 MD responded 15:46:50 50 mcg FENTANYL given in lab by Marie Davis, RN via Peripheral IV. 15:50:20 MD arrived. 15:51:07 HR=70 bpm, KLKR=202/87 mmhg, SpO2=95.0 %, Resp=20 B/min, Pain=0, Jake=10, Hahn=2 15:51:31 1 mg VERSED given in lab by Marie Davis, RN via Peripheral IV. Time Out. Correct patient, correct procedure, correct physician, labs, allergies, and equipment verified with label fuser tender 15:52:18 team present. Fire risk assesment completed (see hard stop sheet for coding). Time Out Conc urred by MD and individual staff in procedure. 15:52:23 Case Start 15:52:24 Verbal Stimulation=2 Physical Stimulation=2 Airway=2 Respiration=2 TOTAL=8. (0=absent, 1=li mited, 2=present) 15:52:31 20 mL 1% XYLOCAINE given in lab by Kenneth Bales in Right Groin via Subcutaneous. 15:53:30 Access site was Right Femoral Artery. 15:53:35 A wire was inserted via Fem Art (right). 15:53:39 A SHEATH, FR6.5 PRELUDE 11CM FR 6.5 was advanced into the Fem Art (right) using the Percuta neous technique. A JL 4.0 INFINITI CATHETER FR 6 was advanced over a wire. OMNIPAQUE, 350 MG, 150ML 150ML was us ed for 15:54:07 injections. Recorded Pressure: Ao, HR=72, Condition=Condition 1 15:54:55 (Aorta) Ao 165/80/114 After removing the current catheter a 3DRC INFINITI CATHETER FR 6 was advanced over a WIRE, 3MM J .035 180CM 15:55:35 180CM. 15:56:08 HR=70 bpm, TLUQ=320/85 mmhg, SpO2=94.0 %, Resp=7 B/min, Pain=0, Jake=10, Hahn=2 15:56:45 The RCA was injected and visualized at various angles. OMNIPAQUE, 350 MG, 150ML 150ML used . 15:57:09 The SVG-DIAG was injected and visualized at various angles. OMNIPAQUE, 350 MG, 150ML 150ML used. 15:58:29 A WIRE, 3MMJ .035 180CM 180CM was inserted via Fem Art (right). 15:58:52 Wire removed 16:00:58 1 mg VERSED given in lab by Marie Davis, RN via Peripheral IV. 16:01:07 HR=70 bpm, CDJI=026/83 mmhg, SpO2=95.0 %, Resp=19 B/min, Pain=0, Jake=10, Hahn=2 16:01:12 50 mcg FENTANYL given in lab by Marie Davis, RN via Peripheral IV. After removing the current catheter a SHALOM INFINITI CATHETER FR 6 was advanced over a WIRE, 3MMJ .035 180CM 16:03:03 180CM. 16:03:24 A WIRE, EXCHANGE 260CM 3MMJ 260CM was inserted via Fem Art (right). 16:05:42 The [place] was injected and visualized at various angles. OMNIPAQUE, 350 MG, 150ML 150ML used. 16:06:10 BO=221 bpm, FRZL=810/88 mmhg, SpO2=94.0 %, Resp=12 B/min, Pain=0, Jake=10, Hahn=2 After removing the current catheter a LCB INFINITI CATHETER FR 6 was advanced over a WIRE, EXCH JOHN 260CM 16:07:51 3MMJ 260CM. 16:09:25 The SVG-OM was injected and visualized at various angles. OMNIPAQUE, 350 MG, 150ML 150ML us ed. After removing the current catheter a JL 4.5 INFINITI CATHETER FR 6 was advanced over a WIRE, E XCHANGE 260CM 16:10:50 3MMJ 260CM. 16:11:17 HR=71 bpm, FGGS=822/75 mmhg, SpO2=96.0 %, Resp=15 B/min, Pain=0, Jake=10, Hahn=2 After removing the current catheter a JL 5.0 INFINITI CATHETER FR 6 was advanced over a WIRE, E XCHANGE 260CM 16:11:41 3MMJ 260CM. 16:12:19 1 mg VERSED given in lab by Marie Davis, WEI via Peripheral IV. 16:13:02 50 mcg FENTANYL given in lab by Marie Davis, WEI via Peripheral IV. 16:13:27 The LCA was injected and visualized at various angles. OMNIPAQUE, 350 MG, 150ML 150ML used . After removing the current catheter a PIGTAIL STR INFINITI CATHETER FR 6 was advanced over a WI RE, EXCHANGE 16:14:39 260CM 3MMJ 260CM. Recorded Pressure: LV, HR=73, Condition=Condition 1 16:16:20 (Left Ventricle) LV 160/19/24 16:16:40 The LV was injected at 12 cc/sec for a total of 42. OMNIPAQUE, 350 MG, 150ML 150ML used. 16:16:45 HR=75 bpm, RELO=090/84 mmhg, SpO2=95.0 %, Resp=20 B/min, Pain=0, Jake=10, Hahn=2 Recorded Pressure: LV, Ao, HR=76, Condition=Condition 1 16:17:40 (Left Ventricle) LV 145/18/24, (Aorta) Ao 149/74/105 16:18:06 Catheter was removed 16:21:05 HR=75 bpm, VCZK=058/98 mmhg, SpO2=95.0 %, Resp=15 B/min, Pain=0, Jake=10, Hahn=2 16:22:50 Case End (Physician broke scrub) Assessment: Final Case, HR=80 BPM, Rhythm=reg, TCFA=667/105 mmhg, Chest Pain=0, Edema=None, Color=Normal, Skin = Warm Right Pulses: Prabhu Ped=2, Femoral=3 Left Pulses: Prabhu Ped=2, Femoral=3 16:26:04 Lower Right Extremities: Color=Normal Lower Left Extremities: Color=Normal Neurological: State=Alert, Ox3, [place] Respiration: Resp=19 B/min, SpO2=94 %, O2=2 lpm 16:26:10 HR=80 bpm, PFJR=748/105 mmhg, SpO2=94.0 %, Resp=18 B/min, Pain=0, Jake=10, Hahn=2 16:26:40 Catheter(s) removed without difficulty 16:26:43 VASCADE, FR6 CLOSURE SYSTEM FR 6\\7 placement in the Fem Art (right) 16:26:56 Sterile dressing applied to site 16:26:56 No case complications noted. 16:26:57 Cine recording checked. 16:26:59 Bedside Report will be given. 16:27:06 A Left Heart Cath was performed. 16:27:09 Clinical correlaton risk stratification. 16:31:13 XKUD=045/120 mmhg, Pain=0, Jake=10, Hahn=2 16:38:09 100 mcg NTG (IC) given in lab by Marie Davis, RN via Intra-coronary. End Study - Contrast Media Used In Study Contrast Total Opened (mL) Total Used (mL) Total Wasted (mL) Omnipaque 175 175 0 End Study - Maximum Contrast Load Max Contrast Load (mL) 496.4 End Study - Radiation Exposure Fluoro Time (minutes) 5.0 End Study - Sheaths Sheaths Pulled By Sheath Hold Time (min) Marina Parikh 5 End Study - Patient Disposition Complications Transferred To No Telemetry Bed
[2018-02-26] MEDS ORDERED: Iohexol 350 MG/ML 100 ML Vial (for Cath Lab) IVCONTRAST ONE (16:49)
--- NOTE | 2018-02-26 16:49 | MA ---
cc: Kenneth Bales MD DATE: 02/26/2018 PROCEDURE: Left heart catheterization, selective coronary and graft angiography, left ventriculography. PROCEDURE NOTES: The patient was brought to the cardiac catheterization laboratory in a fasting state after having signed informed consent. The right groin was prepped and draped as per policy and anesthetized with 1% lidocaine. Arterial access was obtained via the right femoral artery and a 6-[place]an sheath placed. Coronary arteriography was performed using 6-[place]an Jann left 5.0 and right progressive catheters. The left internal mammary artery was sub-selectively engaged with an SHALOM catheter. The vein graft to the obtuse marginal was engaged with a left coronary bypass catheter. The vein graft to the diagonal was engaged with the progressive right catheter. Left ventriculography was done using a standard 6-[place] pigtail. There were no apparent immediate complications. Her arteriotomy site was closed with VASCADE. HEMODYNAMIC DATA: Left ventricle 145 with an end diastolic pressure of 18, aorta 149/74 with a mean of 105. There was no significant transvalvular aortic gradient on pullback of the pigtail catheter. CORONARY ARTERIOGRAPHY: The left main has a 99% distal stenosis. The left main is moderately calcified. Competitive flow is evident in the proximal LAD and the [place] LAD is not well visualized on the left main contrast injections. There is a small first diagonal arising from the proximal LAD and this diagonal has up 50% proximal stenosis. The left circumflex is totally occluded at its origin. The right coronary artery is totally occluded proximally. There appears to be good collaterals from the proximal right coronary to both the distal right coronary and to the left circumflex. GRAFT ANGIOGRAPHY: The vein graft to the diagonal is diffusely diseased. It is somewhat difficult to quantify the degree of stenosis in this graft, but probably approaches 40% diffusely from its ostium to proximal portion and 25% distally. The [place] diagonal distal to the anastomosis site appears to have minimal luminal irregularities. The left internal mammary artery to the LAD appears to be widely patent. The mid to distal LAD overall has minimal to mild diffuse luminal irregularities distal to the anastomosis site. There are fair LAD to distal right collaterals evident. The vein graft to the obtuse marginal is widely patent. There is retrograde filling to a small portion of the distal left circumflex. There are also obtuse marginal to distal left circumflex and to distal right coronary collaterals. The vein graft to the posterior descending artery sequential to the posterolateral branch is known to be totally occluded and not engaged on the present study. LEFT VENTRICULOGRAPHY: Contrast injection of the left ventricle reveals a small area of basal inferior akinesis. Ejection fraction is estimated at 55%. There is possibly moderate mitral regurgitation, probably mostly catheter-induced (of note, recent echo shows only trace mitral regurgitation). CONCLUSIONS: 1. Severe 3-vessel [place] coronary artery disease, severe left main disease. 2. Right dominant system. 3. Patent left internal mammary artery to the left anterior descending, vein graft to the diagonal, vein graft to the obtuse marginal; known totally occluded vein graft to the posterior descending artery with sequential to the posterolateral branch. 4. Normal left ventricular function with estimated ejection fraction of 55%. There may be moderate mitral regurgitation, but probably mostly catheter-induced. 5. Good proximal right coronary to left circumflex collaterals, fair proximal to distal right coronary collaterals, fair obtuse marginal to distal left circumflex and to distal right coronary collaterals, fair distal left anterior descending to distal right coronary collaterals. DISCUSSION No significant change is seen in the patient's coronary and graft anatomy compared to her last catheterization 10/10/17. No disease is amenable to percutaneous revascularization. MD FREDIS Brunner/heather , 04:29 PM , 04:39 PM SILVANA
[2018-02-26] MEDS: Ranolazine 500 MG 12HR ER Tablet PO SCH (17:07)
[2018-02-26] MEDS: Insulin NovoLOG Aspart Correctional Sugar Inj SQ SCH ×2 (17:08→22:01)
[2018-02-26] MEDS ORDERED: Insulin NovoLOG Aspart Correctional Sugar Inj SQ SCH (18:00)
--- NOTE | 2018-02-26 18:51 | P.PN ---
Subjective Interval history: Had cardiac cath done today. She has CAD and findings were similar to cardiac cath from September this year. Breathing easier and on O2 3 L. Off BIPAP . Physical Exam Vital signs: Vital Signs 02/25/18 19:45 02/25/18 20:00 02/25/18 22:00 Temperature 98.6 F Pulse Rate 83 82 77 Respiratory Rate 20 20 Blood Pressure 156/72 H Pulse Oximetry 97 97 02/25/18 23:09 02/26/18 00:00 02/26/18 02:00 Temperature 98.4 F Pulse Rate 73 72 78 Respiratory Rate 20 20 Blood Pressure 155/75 H Pulse Oximetry 99 02/26/18 03:38 02/26/18 04:00 02/26/18 04:48 Temperature 97 F L Pulse Rate 76 80 Respiratory Rate 24 21 21 Blood Pressure 146/76 H Pulse Oximetry 98 02/26/18 06:00 02/26/18 08:00 02/26/18 08:44 Temperature 97.6 F Pulse Rate 78 76 82 Respiratory Rate 12 24 Blood Pressure 175/84 H Pulse Oximetry 97 97 02/26/18 09:00 02/26/18 10:00 02/26/18 11:21 Temperature Pulse Rate 81 72 68 Respiratory Rate 23 Blood Pressure Pulse Oximetry 02/26/18 12:00 02/26/18 14:00 02/26/18 16:45 Temperature 98.1 F 98.8 F Pulse Rate 70 70 81 Respiratory Rate 19 16 Blood Pressure 132/67 144/82 H Pulse Oximetry 97 02/26/18 17:00 02/26/18 17:15 02/26/18 17:30 Temperature Pulse Rate 78 76 74 Respiratory Rate 21 32 H 20 Blood Pressure 126/71 125/73 130/75 Pulse Oximetry 95 95 02/26/18 17:45 02/26/18 18:00 02/26/18 18:30 Temperature Pulse Rate 74 74 74 Respiratory Rate 18 18 17 Blood Pressure 130/73 135/75 116/63 Pulse Oximetry 97 97 99 Intake & Output 02/25/18 02/26/18 02/26/18 18:59 06:59 18:59 Intake Total 880 / 880 600 / 600 1192 / 1192 Output Total 2500 / 2500 Balance -1620 / -1620 600 / 600 1192 / 1192 Weight 69.5 kg Intake: IV 400 / 400 100 / 100 952 / 952 Heparin/D5W 25,000 U/250 mL 25, 232 / 232 000 unit In 250 ml @ 800 UNITS/ HR 8 mls/hr IV.CONT TITRATE PRN Rx#:[id number] NS Inj 1,000 ML @ 75 mls/hr IV. 600 / 600 CONT .[id number] [facility]HEL[facility] Rx#:[id number] Cardene Inj 25 MG In NS Inj 250 20 / 20 ML @ 10 MG/HR 104 mls/hr IV. CONT TITRATE PRN Rx#:[id number] Levaquin 500 mg Premix Inj 500 100 / 100 100 / 100 mg In 100 ml @ 100 mls/hr IV. SIG Q24H R[facility] Rx#:[id number] KCl 20 mEq Premix Inj 20 meq In 300 / 300 100 / 100 100 ml @ 50 mls/hr IV.SIG Q2H PRN Rx#:[id number] Oral 480 / 480 500 / 500 240 / 240 Output: Urine 2500 / 2500 Other: # Voids 1 1 2 # Bowel Movements 1 GENERAL: Elderly W/F alert. SKIN: Warm and dry. HEAD: Normocephalic. EYES: No scleral icterus. No injection or drainage. NECK: Supple, trachea midline. No JVD or lymphadenopathy. CARDIOVASCULAR: Regular rate and rhythm without murmurs, gallops, or rubs. RESPIRATORY: Breath sounds equal bilaterally. Occ wheeze heard. No accessory muscle use. GASTROINTESTINAL: Abdomen soft, non-tender, nondistended. MUSCULOSKELETAL: No cyanosis, or edema. Neuro : No focal deficit. BACK: Nontender without obvious deformity. No CVA tenderness. - Urinary Catheter Management Indwelling Urethral Catheter Cath placed during this visit: yes, but has since been removed by the nurse Reason for continuing: Continue criteria not met Insertion date: 02/23/18 Insertion time: 11:46 Removal date: 02/24/18 Removal time: 10:30 Results - Labs CBC & Chem 7: 02/26/18 01:32 02/26/18 01:32 Laboratory Results - last 24 hr 02/25/18 02/25/18 02/25/18 19:39 19:54 23:24 WBC RBC Hgb Hct MCV MCH MCHC RDW Plt Count MPV Neut % (Auto) Lymph % (Auto) Taney % (Auto) Eos % (Auto) Baso % (Auto) Neut # (Auto) Lymph # (Auto) Taney # (Auto) Eos # (Auto) Baso # (Auto) WBC Differential Differential Comment APTT Sodium Potassium 3.7 Chloride Carbon Dioxide Anion Gap BUN Creatinine Estimated GFR POC Glucose 190 H 194 H Random Glucose Calcium Phosphorus Magnesium Total Creatine Kinase 135 CK-MB (CK-2) 16.1 H Troponin I 5.11 H* D 02/26/18 02/26/18 02/26/18 01:32 01:32 04:05 WBC 12.4 H RBC 5.39 H Hgb 15.4 H Hct 45.5 MCV 84.4 MCH 28.5 MCHC 33.8 RDW 15.8 Plt Count 196 MPV 8.2 Neut % (Auto) 88.1 H Lymph % (Auto) 7.3 L Taney % (Auto) 4.5 Eos % (Auto) 0.0 Baso % (Auto) 0.1 Neut # (Auto) 10.9 H Lymph # (Auto) 0.9 L Taney # (Auto) 0.6 Eos # (Auto) 0.0 Baso # (Auto) 0.0 WBC Differential . Differential Comment Auto diff final APTT Sodium 133 L Potassium 3.4 L Chloride 95 L Carbon Dioxide 26.8 Anion Gap 11 BUN 21 H Creatinine 0.72 Estimated GFR 80 L POC Glucose 273 H Random Glucose 241 H Calcium 8.6 D Phosphorus 2.4 L Magnesium 2.4 Total Creatine Kinase 91 CK-MB (CK-2) Troponin I 4.25 H* D 02/26/18 02/26/18 02/26/18 07:19 08:59 09:30 WBC RBC Hgb Hct MCV MCH MCHC RDW Plt Count MPV Neut % (Auto) Lymph % (Auto) Taney % (Auto) Eos % (Auto) Baso % (Auto) Neut # (Auto) Lymph # (Auto) Taney # (Auto) Eos # (Auto) Baso # (Auto) WBC Differential Differential Comment APTT 37.7 H Sodium Potassium Chloride Carbon Dioxide Anion Gap BUN Creatinine Estimated GFR POC Glucose 204 H Random Glucose Calcium Phosphorus Magnesium Total Creatine Kinase 91 CK-MB (CK-2) Troponin I 3.29 H* D 02/26/18 02/26/18 12:55 16:51 WBC RBC Hgb Hct MCV MCH MCHC RDW Plt Count MPV Neut % (Auto) Lymph % (Auto) Taney % (Auto) Eos % (Auto) Baso % (Auto) Neut # (Auto) Lymph # (Auto) Taney # (Auto) Eos # (Auto) Baso # (Auto) WBC Differential Differential Comment APTT Sodium Potassium Chloride Carbon Dioxide Anion Gap BUN Creatinine Estimated GFR POC Glucose 196 H 191 H Random Glucose Calcium Phosphorus Magnesium Total Creatine Kinase CK-MB (CK-2) Troponin I Microbiology 02/23/18 14:15 Sputum - Endotracheal Gram Stain - Final 02/23/18 14:15 Sputum - Endotracheal Sputum Culture - Preliminary Aspergillus species 02/23/18 11:56 Blood - Peripheral Aerobic Blood Culture - Preliminary No growth in 3 days 02/23/18 11:56 Blood - Peripheral Anaerobic Blood Culture - Preliminary No growth in 3 days 02/23/18 11:39 Blood - Peripheral Aerobic Blood Culture - Preliminary No growth in 3 days 02/23/18 11:39 Blood - Peripheral Anaerobic Blood Culture - Preliminary No growth in 3 days - Imaging Impressions Chest X-Ray 02/26/18 00:00 CONCLUSION: Resolving right basilar atelectasis Assessment and Plan - Assessment (1) COPD (chronic obstructive pulmonary disease) with acute bronchitis Code(s): J44.0 - Chronic obstructive pulmonary disease with acute lower respiratory infection; J20.9 - Acute bronchitis, unspecified Status: Acute (2) Hypertension Code(s): I10 - Essential (primary) hypertension Status: Chronic (3) Respiratory failure Code(s): J96.90 - Respiratory failure, unspecified, unspecified whether with hypoxia or hypercapnia Status: Acute (4) Non-ST elevation (NSTEMI) myocardial infarction Code(s): I21.4 - Non-ST elevation (NSTEMI) myocardial infarction Status: Acute (5) SIRS (systemic inflammatory response syndrome) Code(s): R65.10 - Systemic inflammatory response syndrome (SIRS) of non- infectious origin without acute organ dysfunction Status: Acute (6) CHF exacerbation Code(s): I50.9 - Heart failure, unspecified Status: Acute (7) Shortness of breath Code(s): R06.02 - Shortness of breath Status: Chronic (8) Debility Code(s): R53.81 - Other malaise Status: Chronic (9) Paroxysmal atrial fibrillation Code(s): I48.0 - Paroxysmal atrial fibrillation Status: Chronic - Plan 1. Will leave on O2 3 L N/C 2. Use BIPAP 12/5 CM at HS if she desats <90. 3. Continue metoprolol, Enalapril. 4. Duoneb nebs qid. 5. Continue antibiotics.And Heparin. 6. Taper Solumedrol 40 mg IV Q12H 7. Symbicort 160/4.5 mcg 1 Puff BID 8. CBC,BMP in am (2) Hypertension Qualifiers: Hypertension type: essential hypertension Qualified Code(s): I10 - Essential (primary) hypertension
--- NOTE | 2018-02-26 20:00 | ECG ---
Date Performed: 02/25/2018 Time Performed: 09:33:15 PTAGE: 72 years EKG: Sinus rhythm NONSPECIFIC ST & T-WAVE ABNORMALITY Since previous tracing, no significant change noted BORDERLINE E CG PREVIOUS TRACING : 02/23/2018 14.50 DOCTOR: Bruno Malone Interpretating Date/Time 02/26/2018 19:58:22
[2018-02-26] MEDS: Senna/Docusate Sodium 8.6/50 MG Tablet PO SCH (20:05)
[2018-02-27] MEDS: Sod Chloride 0.9% Inj 1,000 ML IV.CONT SCH ×2 (02:08→08:06)
--- NOTE | 2018-02-27 04:21 | XR ---
EXAM DATE: 02/27/2018 6:00 AM EDT AGE/SEX: 72 years / Female INDICATIONS: Short of breath. CLINICAL DATA: This is the patient's subsequent encounter. Patient reports that signs and symptoms h ave been present for 1 week and indicates a pain score of 0/10. MEDICAL/SURGICAL HISTORY: Cardiovascular disease. Diabetes. chronic obstructive pulmonary dise ase. Hypertension. CABG. Appendectomy. Cholecystectomy. COMPARISON: [facility] [place] 1[place] SINGLE AP, 02/26/2018. . FINDINGS: The cardiac silhouette is enlarged in transverse diameter. Median sternotomy wires are present. There is prominence of the central pulmonary vasculature with indistinct vascular margins compatible with vascular congestion but no evidence of overt failure. There is subsegmental atelectasis in the right base. CONCLUSION: Cardiomegaly and findings of vascular congestion without overt failure. This is new when compared wit h the prior exam. Electronically signed by: Flo Swanson MD 02/27/2018 4:20 AM EDT
[2018-02-27] MEDS: Morphine Inj 4 MG/ML Vial IV.PUSH PRN ×5 (04:33→22:35)
[2018-02-27] MEDS: Chlorhexidine Gluconate 2% 1 Pack (2 Cloths) TOPICAL SCH (04:34)
[2018-02-27] MEDS: Ranolazine 500 MG 12HR ER Tablet PO SCH ×2 (05:52→18:02)
[2018-02-27] MEDS: Isosorbide Mononitrate 60 MG ER 24HR Tablet (Imdur) PO SCH (06:57)
[2018-02-27] MEDS ORDERED: Isosorbide Mononitrate 60 MG ER 24HR Tablet (Imdur) PO SCH ×2 (07:00→09:00)
[2018-02-27 07:49] LABS: Baso % (Auto) 0.1 % (0.0-2.0); Hematocrit 40.3 % (35.0-46.0); Hemoglobin 13.8 gm/dL (11.6-15.3); Lymph % (Auto) 9.8 % (9.0-44.0); Mean Corpuscular HGB Conc 34.1 % (32.0-36.0); Mean Corpuscular Hemoglobin 28.7 pg (27.0-34.0); Mean Corpuscular Volume 84.1 fL (80.0-100.0); Mean Platelet Volume 8.3 fL (7.0-11.0); Mono # (Auto) 0.5 th/mm3 (0.0-0.9); Neut # (Auto) 8.4 th/mm3 (1.8-7.7); Neut % (Auto) 85.1 % (16.0-70.0); Platelet Count 188 th/mm3 (150-450); Red Cell Distribution Width 15.5 % (11.6-17.2); White Blood Count 9.9 th/mm3 (4.0-11.0)
[2018-02-27] MEDS: Metoprolol Tartrate 25 MG Tablet PO SCH ×2 (08:07→20:05)
[2018-02-27] MEDS: Senna/Docusate Sodium 8.6/50 MG Tablet PO SCH ×2 (08:07→20:05)
[2018-02-27] MEDS: MethylPREDNISolone Sod Succinate Inj 40 MG/ML Vial IV.PUSH SCH ×2 (08:07→20:05)
[2018-02-27] MEDS: Furosemide 40 MG Tablet PO SCH (08:07)
--- NOTE | 2018-02-27 08:07 | P.PNCA ---
Subjective Interval history: Denies CP, dyspnea, dizziness, PND, palpitations. Slept well. Medications and Allergies Active Medications: Active Medications Acetaminophen (Tylenol Liq) 650 mg PO Q6H PRN PRN Reason: FEVER Al Hydroxide/Mg Hydroxide (Milk Of Magnesia Liq) 30 ml PO Q12H PRN PRN Reason: Mild Constipation Albuterol (Duoneb Neb ([facility])) 1 ampul NEB Q4HR NEB [facility] Last Admin: 02/27/18 03:47 Dose: Not Given Albuterol (Albuterol Neb (Prn)) 2.5 mg NEB Q2HR NEB PRN PRN Reason: DYSPNEA Aspirin (Ecotrin) 81 mg PO DAILY [facility] Last Admin: 02/26/18 09:01 Dose: 81 mg Atorvastatin Calcium (Lipitor) 10 mg PO HS [facility] Last Admin: 02/26/18 20:05 Dose: 10 mg Bisacodyl (Dulcolax Supp) 10 mg RECTAL DAILY PRN PRN Reason: SEVERE CONSITIPATION Budesonide/Formoterol Fumarate (Symbicort 160/4.5 Mcg Inh) 2 puff INH BID [facility] Last Admin: 02/26/18 22:01 Dose: Not Given Chlorhexidine Gluconate (Chlorhexidine 2% Cloth) 3 pack TOPICAL DAILY@0400 PRN PRN Reason: Extra cloth needed Stop: 03/01/18 03:59 Chlorhexidine Gluconate (Chlorhexidine 2% Cloth) 3 pack TOPICAL DAILY@0400 [facility] Stop: 03/01/18 03:59 Last Admin: 02/27/18 04:34 Dose: Not Given Dextrose (D50w Vial) 50 ml IV.PUSH UNSCH PRN PRN Reason: PER HYPOGLYCEMIA PROTOCOL Diphenhydramine HCl (Benadryl) 50 mg PO CROP OR GRAIN FARMER [facility] Stop: 03/01/18 16:29 Enalapril Maleate (Vasotec) 5 mg PO BID [facility] Last Admin: 02/26/18 20:05 Dose: 5 mg Fentanyl Citrate (Fentanyl Inj) 50 mcg IV.PUSH CROP OR GRAIN FARMER [facility] Stop: 03/01/18 16:29 Furosemide (Lasix) 40 mg PO DAILY [facility] Glucagon (Glucagon Inj) 1 mg OTHER PRN PRN PRN Reason: for Hypoglycemia Protocol Sodium Chloride (Ns Inj) 1,000 mls @ 0 mls/hr IV.SIG BOLUS [facility] Levofloxacin/Dextrose (Levaquin 500 Mg Premix Inj) 500 mg in 100 mls @ 100 mls/ hr IV.SIG Q24H [facility] Last Infusion: 02/26/18 18:32 Dose: Infused Magnesium Sulfate 4 gm/ Sodium (Chloride) 100 mls @ 50 mls/hr IV.SIG UNSCH PRN PRN Reason: For Magnesium 0.9 - 1.1 mg/dL Magnesium Sulfate 2 gm/ Sodium (Chloride) 100 mls @ 50 mls/hr IV.SIG UNSCH PRN PRN Reason: For Magnesium 1.2 - 1.6 mg/dL Potassium Chloride (Kcl 40 Meq Premix Inj) 40 meq in 100 mls @ 25 mls/hr IV.SIG Q2H PRN PRN Reason: For Potassium 2.8 - 3.2 mEq/L Potassium Chloride (Kcl 20 Meq Premix Inj) 20 meq in 100 mls @ 50 mls/hr IV.SIG Q2H PRN PRN Reason: For Potassium 3.3 - 3.5 mEq/L Last Infusion: 02/24/18 21:47 Dose: Infused Potassium Chloride (Kcl 40 Meq Premix Inj) 40 meq in 100 mls @ 25 mls/hr IV.SIG UNSCH PRN PRN Reason: For Potassium 3.3 - 3.5 mEq/L Potassium Chloride (Kcl 20 Meq Premix Inj) 20 meq in 100 mls @ 50 mls/hr IV.SIG Q2H PRN PRN Reason: For Potassium 2.8 - 3.2 mEq/L Last Infusion: 02/25/18 20:38 Dose: Infused Potassium Phosphate 30 mmol/ (Sodium Chloride) 260 mls @ 42 mls/hr IV.SIG UNSCH PRN PRN Reason: SEE LABEL COMMENTS Sodium Phosphate 30 mmol/ (Sodium Chloride) 260 mls @ 42 mls/hr IV.SIG UNSCH PRN PRN Reason: For Phosphorus < 2.5 mg/dL Heparin Sodium/Dextrose (Heparin/D5w 25,000 U/250 Ml) 25,000 unit in 250 mls @ 8 mls/hr IV.CONT TITRATE PRN; Protocol PRN Reason: Per Protocol Last Titration: 02/26/18 17:10 Dose: Infused Sodium Chloride (Ns Inj) 1,000 mls @ 75 mls/hr IV.CONT .[id number] [facility] Last Admin: 02/26/18 22:27 Dose: Not Given Sodium Chloride (Ns Inj) 1,000 mls @ 100 mls/hr IV.CONT .Q10H [facility] Last Admin: 02/27/18 02:08 Dose: Not Given Insulin Aspart (Novolog Insulin Correctional Sugar Inj) 0 unit SQ ACHS [facility]; Protocol Last Admin: 02/26/18 22:01 Dose: Not Given Isosorbide Mononitrate (Imdur) 120 mg PO DAILY@0700 [facility] Last Admin: 02/27/18 06:57 Dose: 120 mg Labetalol HCl (Trandate Inj) 20 mg IV.PUSH Q4H PRN PRN Reason: HYPERTENSION Last Admin: 02/24/18 23:08 Dose: 20 mg Lactulose (Lactulose Liq) 30 ml PO DAILY PRN PRN Reason: SEVERE CONSITIPATION Magnesium Oxide (Mag-Ox) 800 mg PO UNSCH PRN PRN Reason: For Magnesium 1.2 - 1.6 mg/dL Methylprednisolone Sodium Succinate (Solumedrol Inj) 40 mg IV.PUSH Q12HR [facility] Last Admin: 02/26/18 20:04 Dose: 40 mg Metoprolol Tartrate (Lopressor) 50 mg PO BID [facility] Last Admin: 02/26/18 20:05 Dose: 50 mg Midazolam HCl (Versed Inj) 1 mg IV.PUSH CROP OR GRAIN FARMER [facility] Stop: 03/01/18 16:29 Morphine Sulfate (Morphine Inj) 4 mg IV.PUSH Q2H PRN PRN Reason: PAIN SCALE 7-10 Last Admin: 02/27/18 04:33 Dose: 4 mg Pantoprazole Sodium (Protonix) 40 mg PO DAILY [facility] Potassium Bicarb/Potassium Chloride (K-Lyte Cl Eff) 50 meq PO UNSCH PRN PRN Reason: For Potassium 3.3 - 3.5 mEq/L Potassium Phosphate (K-Phos Original) 2,000 mg PO Q4H PRN PRN Reason: Phosphorus Less Than 2.5 mg/dL Last Admin: 02/26/18 06:07 Dose: 2,000 mg Potassium Phosphate (K-Phos Original) 2,000 mg PO UNSCH PRN PRN Reason: SEE LABEL COMMENTS Ranolazine (Ranexa) 1,000 mg PO Q12H [facility] Last Admin: 02/27/18 05:52 Dose: 1,000 mg Senna/Docusate Sodium (Stephanie-Colace) 1 tab PO BID [facility] Last Admin: 02/26/18 20:05 Dose: Not Given Sennosides (Senokot) 17.2 mg PO Q12H PRN PRN Reason: Moderate Constipation Sodium Chloride (Ns Flush) 2 ml IV.FLUSH BID [facility] Last Admin: 02/26/18 20:05 Dose: 2 ml Sodium Chloride (Ns Flush) 2 ml IV.FLUSH PRN PRN PRN Reason: FLUSH AFTER USING IV ACCESS Sodium Chloride (Ns Flush) 2 ml IV.FLUSH BID [facility] Last Admin: 02/26/18 20:06 Dose: Not Given Sodium Chloride (Ns Flush) 2 ml IV.FLUSH PRN PRN PRN Reason: FLUSH AFTER USING IV ACCESS Allergies Allergy/AdvReac Type Severity Reaction Status Date / Time penicillin G Allergy Severe Anaphylaxis Verified 12/06/17 23:40 Home Medications Medication Instructions Recorded Confirmed Type aspirin [Aspirin Childrens] 81 mg PO DAILY 02/23/18 02/23/18 History atorvastatin 10 mg PO HS 02/23/18 02/23/18 History furosemide 40 mg PO DAILY 02/23/18 02/23/18 History isosorbide mononitrate 120 mg PO DAILY 02/23/18 02/23/18 History potassium chloride 20 meq PO DAILY 02/23/18 02/23/18 History prednisone 20 mg PO DAILY 02/23/18 02/23/18 History promethazine 12.5 mg PO Q6H PRN 02/23/18 02/23/18 History ranolazine [Ranexa] 1,000 mg PO Q12H 02/23/18 02/23/18 History Physical Exam Vital signs: Vital Signs 02/26/18 08:44 02/26/18 09:00 02/26/18 10:00 Temperature Pulse Rate 82 81 72 Respiratory Rate 24 Blood Pressure Pulse Oximetry 97 02/26/18 11:21 02/26/18 12:00 02/26/18 14:00 Temperature 98.1 F Pulse Rate 68 70 70 Respiratory Rate 23 19 Blood Pressure 132/67 Pulse Oximetry 97 02/26/18 16:45 02/26/18 17:00 02/26/18 17:15 Temperature 98.8 F Pulse Rate 81 78 76 Respiratory Rate 16 21 32 H Blood Pressure 144/82 H 126/71 125/73 Pulse Oximetry 95 02/26/18 17:30 02/26/18 17:45 02/26/18 18:00 Temperature Pulse Rate 74 74 74 Respiratory Rate 20 18 18 Blood Pressure 130/75 130/73 135/75 Pulse Oximetry 95 97 97 02/26/18 18:30 02/26/18 18:51 02/26/18 19:21 Temperature Pulse Rate 74 75 76 Respiratory Rate 17 18 24 Blood Pressure 116/63 138/70 106/61 Pulse Oximetry 99 97 97 02/26/18 19:28 02/26/18 20:00 02/26/18 20:21 Temperature 97.5 F L Pulse Rate 74 72 72 Respiratory Rate 20 15 15 Blood Pressure 121/70 121/70 Pulse Oximetry 98 96 96 02/26/18 21:21 02/26/18 22:00 02/26/18 22:21 Temperature Pulse Rate 73 63 64 Respiratory Rate 25 H 16 Blood Pressure 110/65 124/62 Pulse Oximetry 98 98 02/26/18 23:14 02/26/18 23:21 02/27/18 00:00 Temperature Pulse Rate 62 62 60 Respiratory Rate 14 15 14 Blood Pressure 118/63 119/68 Pulse Oximetry 97 96 02/27/18 02:00 02/27/18 04:00 02/27/18 06:00 Temperature 98.6 F Pulse Rate 66 60 59 L Respiratory Rate 16 Blood Pressure 125/63 Pulse Oximetry 94 L 02/27/18 07:47 Temperature Pulse Rate 62 Respiratory Rate 18 Blood Pressure Pulse Oximetry Intake & Output 02/26/18 02/27/18 02/27/18 18:59 06:59 18:59 Intake Total 1192 / 1192 1500 / 1500 Output Total 800 / 800 300 / 300 Balance 392 / 392 1200 / 1200 Weight 72.8 kg Intake: IV 952 / 952 1000 / 1000 Heparin/D5W 25,000 U/250 mL 25, 232 / 232 000 unit In 250 ml @ 800 UNITS/ HR 8 mls/hr IV.CONT TITRATE PRN Rx#:[id number] NS Inj 1,000 ML @ 100 mls/hr IV 600 / 600 1000 / 1000 .CONT .Q10H [facility] Rx#:[id number] Cardene Inj 25 MG In NS Inj 250 20 / 20 ML @ 10 MG/HR 104 mls/hr IV. CONT TITRATE PRN Rx#:[id number] Levaquin 500 mg Premix Inj 500 100 / 100 mg In 100 ml @ 100 mls/hr IV. SIG Q24H [facility] Rx#:[id number] Oral 240 / 240 500 / 500 Output: Urine 800 / 800 300 / 300 - Constitutional no acute distress - Routine Neck Exam Absent: JVD - Routine Respiratory Exam Present: CTA bilaterally - Routine Cardiovascular Exam Present: RRR, S1, S2, murmur. Absent: gallop Comments: II/ systolic murmur lower left sternal border. - Routine Abdominal Exam Present: soft, normoactive bowel sounds. Absent: tenderness, organomegaly - Routine Extremities Exam Absent: cyanosis, clubbing, edema - Urinary Catheter Management Indwelling Urethral Catheter Cath placed during this visit: yes, but has since been removed by the nurse Reason for continuing: Continue criteria not met Insertion date: 02/23/18 Insertion time: 11:46 Removal date: 02/24/18 Removal time: 10:30 Results 02/27/18 06:31 02/26/18 01:32 Cardiac Enzymes 02/25/18 02/25/18 02/25/18 Range/Units 08:20 08:20 19:39 CK-MB (CK-2) 39.9 H 16.1 H (0.5-3.6) ng/mL Troponin I 6.24 H* D 5.11 H* D (0.02-0.05) ng/mL B-Natriuretic Peptide 1061 H (0-100) pg/mL 02/26/18 02/26/18 Range/Units 01:32 07:19 CK-MB (CK-2) (0.5-3.6) ng/mL Troponin I 4.25 H* D 3.29 H* D (0.02-0.05) ng/mL B-Natriuretic Peptide (0-100) pg/mL Coagulation 02/25/18 02/25/18 02/25/18 Range/Units 08:20 10:16 16:07 PT 11.2 (9.8-11.6) sec APTT 23.4 L 34.9 H D (24.3-30.1) sec B-Natriuretic Peptide 1061 H (0-100) pg/mL 02/26/18 Range/Units 09:30 PT (9.8-11.6) sec APTT 37.7 H (24.3-30.1) sec B-Natriuretic Peptide (0-100) pg/mL CBC 02/26/18 02/27/18 Range/Units 01:32 06:31 WBC 12.4 H 9.9 (4.0-11.0) th/mm3 RBC 5.39 H 4.80 (4.00-5.30) mil/mm3 Hgb 15.4 H 13.8 (11.6-15.3) gm/dL Hct 45.5 40.3 (35.0-46.0) % Plt Count 196 188 (150-450) th/mm3 Neut # (Auto) 10.9 H 8.4 H (1.8-7.7) th/mm3 Lymph # (Auto) 0.9 L 1.0 (1.0-4.8) th/mm3 Webb # (Auto) 0.6 0.5 (0.0-0.9) th/mm3 Eos # (Auto) 0.0 0.0 (0.0-0.4) th/mm3 Baso # (Auto) 0.0 0.0 (0.0-0.2) th/mm3 Comprehensive Metabolic Panel 02/25/18 02/26/18 Range/Units 19:39 01:32 Sodium 133 L (136-145) meq/L Potassium 3.7 3.4 L (3.5-5.1) meq/L Chloride 95 L (98-107) meq/L Carbon Dioxide 26.8 (21.0-32.0) meq/L BUN 21 H (7-18) mg/dL Creatinine 0.72 (0.50-1.00) mg/dL Calcium 8.6 D (8.5-10.1) mg/dL Intake and Output 02/26/18 02/27/18 02/27/18 22:59 06:59 14:59 Intake Total 2172 / 2172 500 / 500 Output Total 800 / 800 300 / 300 Balance 1372 / 1372 200 / 200 Intake: IV 1931 / 1931 Heparin/D5W 25,000 U/250 mL 25, 232 / 232 000 unit In 250 ml @ 800 UNITS/ HR 8 mls/hr IV.CONT TITRATE PRN Rx#:[id number] NS Inj 1,000 ML @ 100 mls/hr IV 1600 / 1600 .CONT .Q10H [facility] Rx#:[id number] Levaquin 500 mg Premix Inj 500 100 / 100 mg In 100 ml @ 100 mls/hr IV. SIG Q24H [facility] Rx#:[id number] Oral 240 / 240 500 / 500 Output: Urine 800 / 800 300 / 300 Other: Weight 72.8 kg - Imaging and Cardiology Imaging: Impressions Chest X-Ray 02/26/18 00:00 CONCLUSION: Resolving right basilar atelectasis Chest X-Ray 02/27/18 06:00 CONCLUSION: Cardiomegaly and findings of vascular congestion without overt failure. This is new when compared with the prior exam. Assessment and Plan - Assessment (1) Non-ST elevation (NSTEMI) myocardial infarction Code(s): I21.4 - Non-ST elevation (NSTEMI) myocardial infarction Status: Acute Plan: Stable overnight. No further angina. Cath shows no significant change from except seems to have better collateral development to distal RCA and left circumflex. Grafts to diagonal, obtuse marginal, and LAD remain widely patent. EF 55%. Continue beta cordell, CHAITANYA-I, aspirin, Ranexa, isosorbide. Will f/ u PRN. OK to discharge from cardiac standpoint. (2) Paroxysmal atrial fibrillation Code(s): I48.0 - Paroxysmal atrial fibrillation Status: Chronic Plan: Stable status post ablation about 4 months ago. Continue to monitor. (3) Hypertension Code(s): I10 - Essential (primary) hypertension Status: Chronic Plan: Normotensive on current regimen. Recommend no change. (4) Wide-complex tachycardia Code(s): I47.2 - Ventricular tachycardia Status: Chronic Plan: Stable rhythm status. Dr. Hernandez felt her wide complex tachycardia last admission was more consistent with aberrantly conducted SVT. Continue beta cordell therapy. - Plan Code Status: full code Discussed Condition With: patient and (3) Hypertension Qualifiers: Hypertension type: essential hypertension Qualified Code(s): I10 - Essential (primary) hypertension
[2018-02-27] MEDS: Sodium Chloride 0.9% 2 ML Flush BID IV.FLUSH SCH ×2 (08:08→20:05)
[2018-02-27] MEDS: Insulin NovoLOG Aspart Correctional Sugar Inj SQ SCH ×4 (08:10→20:22)
[2018-02-27 08:13] LABS: Carbon Dioxide 26.2 meq/L (21.0-32.0); Magnesium 2.5 mg/dL (1.5-2.5); Phosphorus 3.4 mg/dL (2.5-4.9); Potassium 3.9 meq/L (3.5-5.1)
--- NOTE | 2018-02-27 10:52 | P.HPFP ---
History of Present Illness Service: dr Davison Primary Care Physician: Yohan Davison MD Chief Complaint: Respiratory failure History of Present Illness: admit with repsiratory failure. intubated. underwent cardiac cath. in ICU now. discussed with nursing, request out of ICu and off IVF's. PT c/o cougha and congestion. - Diagnosis (1) Non-ST elevation (NSTEMI) myocardial infarction (2) Respiratory failure (3) Hypertension (4) SIRS (systemic inflammatory response syndrome) (5) CHF exacerbation (6) Shortness of breath (7) Debility (8) Paroxysmal atrial fibrillation (9) Endotracheally intubated (10) COPD (chronic obstructive pulmonary disease) with acute bronchitis (11) Diabetes (12) H/O cardiac catheterization (13) CAD (coronary artery disease) (14) Hypertension (15) CHF (congestive heart failure) Inpatient Certification: I certify that the inpatient services were ordered in accordance with Medicare regulations governing the order. 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 - Medical History Medical History: Medical History (Last Reviewed 02/27/18 @ 10:46 by Yohan Davison MD) Diabetes (Chronic) COPD (chronic obstructive pulmonary disease) (Chronic) CAD (coronary artery disease) (Chronic) Dysrhythmia, cardiac (Chronic) Hypertension (Chronic) CHF (congestive heart failure) (Chronic) Hiatal hernia Pneumonia Sleep apnea Myocardial infarction (Resolved) - Surgical History Surgical History: Surgical History (Last Reviewed 02/27/18 @ 10:46 by Yohan Davison MD) History of appendectomy (Acute) H/O cardiac catheterization (Acute) History of dental surgery History of thyroid surgery Hx of CABG Hx of cholecystectomy - Family History Family History: Family History (Last Reviewed 02/27/18 @ 10:46 by Yohan Davison MD) Mother Heart disease Father Heart disease Brother Heart disease Sister Heart disease Stroke - Social History I have reviewed the patient's Social History: Yes - Tobacco History Second Hand Smoke Exposure: Yes Smoking Status: Former smoker Tobacco Type: Cigarettes Packs Per Day: 1 (Since age 15) - Alcohol History How Often Do You Have a Drink Containing Alcohol: Never - Substance Use History Substance History: No History of Abuse - Travel History Recent Travel in the [place] Within the Last 8 Weeks: No Recent Travel Out of the Country Within the Last 8 Weeks: No - Immunization History Tetanus Immunization: Unable to Assess Medications and Allergies Active Medications: Active Medications Acetaminophen (Tylenol Liq) 650 mg PO Q6H PRN PRN Reason: FEVER Al Hydroxide/Mg Hydroxide (Milk Of Magnesia Liq) 30 ml PO Q12H PRN PRN Reason: Mild Constipation Albuterol (Duoneb Neb ([facility])) 1 ampul NEB Q4HR NEB [facility] Last Admin: 02/27/18 03:47 Dose: Not Given Albuterol (Albuterol Neb (Prn)) 2.5 mg NEB Q2HR NEB PRN PRN Reason: DYSPNEA Aspirin (Ecotrin) 81 mg PO DAILY [facility] Last Admin: 02/27/18 08:07 Dose: 81 mg Atorvastatin Calcium (Lipitor) 10 mg PO HS [facility] Last Admin: 02/26/18 20:05 Dose: 10 mg Bisacodyl (Dulcolax Supp) 10 mg RECTAL DAILY PRN PRN Reason: SEVERE CONSITIPATION Budesonide/Formoterol Fumarate (Symbicort 160/4.5 Mcg Inh) 2 puff INH BID [facility] Last Admin: 02/26/18 22:01 Dose: Not Given Chlorhexidine Gluconate (Chlorhexidine 2% Cloth) 3 pack TOPICAL DAILY@0400 PRN PRN Reason: Extra cloth needed Stop: 03/01/18 03:59 Chlorhexidine Gluconate (Chlorhexidine 2% Cloth) 3 pack TOPICAL DAILY@0400 [facility] Stop: 03/01/18 03:59 Last Admin: 02/27/18 04:34 Dose: Not Given Dextrose (D50w Vial) 50 ml IV.PUSH UNSCH PRN PRN Reason: PER HYPOGLYCEMIA PROTOCOL Diphenhydramine HCl (Benadryl) 50 mg PO [employer] [facility] Stop: 03/01/18 16:29 Enalapril Maleate (Vasotec) 5 mg PO BID [facility] Last Admin: 02/27/18 08:07 Dose: 5 mg Fentanyl Citrate (Fentanyl Inj) 50 mcg IV.PUSH [employer] [facility] Stop: 03/01/18 16:29 Furosemide (Lasix) 40 mg PO DAILY [facility] Last Admin: 02/27/18 08:07 Dose: 40 mg Glucagon (Glucagon Inj) 1 mg OTHER PRN PRN PRN Reason: for Hypoglycemia Protocol Sodium Chloride (Ns Inj) 1,000 mls @ 0 mls/hr IV.SIG BOLUS [facility] Levofloxacin/Dextrose (Levaquin 500 Mg Premix Inj) 500 mg in 100 mls @ 100 mls/ hr IV.SIG Q24H [facility] Last Infusion: 02/26/18 18:32 Dose: Infused Magnesium Sulfate 4 gm/ Sodium (Chloride) 100 mls @ 50 mls/hr IV.SIG UNSCH PRN PRN Reason: For Magnesium 0.9 - 1.1 mg/dL Magnesium Sulfate 2 gm/ Sodium (Chloride) 100 mls @ 50 mls/hr IV.SIG UNSCH PRN PRN Reason: For Magnesium 1.2 - 1.6 mg/dL Potassium Chloride (Kcl 40 Meq Premix Inj) 40 meq in 100 mls @ 25 mls/hr IV.SIG Q2H PRN PRN Reason: For Potassium 2.8 - 3.2 mEq/L Potassium Chloride (Kcl 20 Meq Premix Inj) 20 meq in 100 mls @ 50 mls/hr IV.SIG Q2H PRN PRN Reason: For Potassium 3.3 - 3.5 mEq/L Last Infusion: 02/24/18 21:47 Dose: Infused Potassium Chloride (Kcl 40 Meq Premix Inj) 40 meq in 100 mls @ 25 mls/hr IV.SIG UNSCH PRN PRN Reason: For Potassium 3.3 - 3.5 mEq/L Potassium Chloride (Kcl 20 Meq Premix Inj) 20 meq in 100 mls @ 50 mls/hr IV.SIG Q2H PRN PRN Reason: For Potassium 2.8 - 3.2 mEq/L Last Infusion: 02/25/18 20:38 Dose: Infused Potassium Phosphate 30 mmol/ (Sodium Chloride) 260 mls @ 42 mls/hr IV.SIG UNSCH PRN PRN Reason: SEE LABEL COMMENTS Sodium Phosphate 30 mmol/ (Sodium Chloride) 260 mls @ 42 mls/hr IV.SIG UNSCH PRN PRN Reason: For Phosphorus < 2.5 mg/dL Heparin Sodium/Dextrose (Heparin/D5w 25,000 U/250 Ml) 25,000 unit in 250 mls @ 8 mls/hr IV.CONT TITRATE PRN; Protocol PRN Reason: Per Protocol Last Titration: 02/26/18 17:10 Dose: Infused Insulin Aspart (Novolog Insulin Correctional Sugar Inj) 0 unit SQ ACHS [facility]; Protocol Last Admin: 02/27/18 08:10 Dose: 2 unit Isosorbide Mononitrate (Imdur) 120 mg PO DAILY@0700 [facility] Last Admin: 02/27/18 06:57 Dose: 120 mg Labetalol HCl (Trandate Inj) 20 mg IV.PUSH Q4H PRN PRN Reason: HYPERTENSION Last Admin: 02/24/18 23:08 Dose: 20 mg Lactulose (Lactulose Liq) 30 ml PO DAILY PRN PRN Reason: SEVERE CONSITIPATION Magnesium Oxide (Mag-Ox) 800 mg PO UNSCH PRN PRN Reason: For Magnesium 1.2 - 1.6 mg/dL Methylprednisolone Sodium Succinate (Solumedrol Inj) 40 mg IV.PUSH Q12HR [facility] Last Admin: 02/27/18 08:07 Dose: 40 mg Metoprolol Tartrate (Lopressor) 50 mg PO BID [facility] Last Admin: 02/27/18 08:07 Dose: 50 mg Midazolam HCl (Versed Inj) 1 mg IV.PUSH [employer] [facility] Stop: 03/01/18 16:29 Morphine Sulfate (Morphine Inj) 4 mg IV.PUSH Q2H PRN PRN Reason: PAIN SCALE 7-10 Last Admin: 02/27/18 04:33 Dose: 4 mg Pantoprazole Sodium (Protonix) 40 mg PO DAILY [facility] Last Admin: 02/27/18 08:07 Dose: 40 mg Potassium Bicarb/Potassium Chloride (K-Lyte Cl Eff) 50 meq PO UNSCH PRN PRN Reason: For Potassium 3.3 - 3.5 mEq/L Potassium Phosphate (K-Phos Original) 2,000 mg PO Q4H PRN PRN Reason: Phosphorus Less Than 2.5 mg/dL Last Admin: 02/26/18 06:07 Dose: 2,000 mg Potassium Phosphate (K-Phos Original) 2,000 mg PO UNSCH PRN PRN Reason: SEE LABEL COMMENTS Ranolazine (Ranexa) 1,000 mg PO Q12H [facility] Last Admin: 02/27/18 05:52 Dose: 1,000 mg Senna/Docusate Sodium (Stephanie-Colace) 1 tab PO BID [facility] Last Admin: 02/27/18 08:07 Dose: 1 tab Sennosides (Senokot) 17.2 mg PO Q12H PRN PRN Reason: Moderate Constipation Sodium Chloride (Ns Flush) 2 ml IV.FLUSH BID [facility] Last Admin: 02/27/18 08:08 Dose: 2 ml Sodium Chloride (Ns Flush) 2 ml IV.FLUSH PRN PRN PRN Reason: FLUSH AFTER USING IV ACCESS Sodium Chloride (Ns Flush) 2 ml IV.FLUSH BID [facility] Last Admin: 02/27/18 08:10 Dose: 2 ml Sodium Chloride (Ns Flush) 2 ml IV.FLUSH PRN PRN PRN Reason: FLUSH AFTER USING IV ACCESS Allergies Allergy/AdvReac Type Severity Reaction Status Date / Time penicillin G Allergy Severe Anaphylaxis Verified 12/06/17 23:40 Home Medications Medication Instructions Recorded Confirmed Type aspirin [Aspirin Childrens] 81 mg PO DAILY 02/23/18 02/23/18 History atorvastatin 10 mg PO HS 02/23/18 02/23/18 History furosemide 40 mg PO DAILY 02/23/18 02/23/18 History isosorbide mononitrate 120 mg PO DAILY 02/23/18 02/23/18 History potassium chloride 20 meq PO DAILY 02/23/18 02/23/18 History prednisone 20 mg PO DAILY 02/23/18 02/23/18 History promethazine 12.5 mg PO Q6H PRN 02/23/18 02/23/18 History ranolazine [Ranexa] 1,000 mg PO Q12H 02/23/18 02/23/18 History Exam Vital signs: Vital Signs 02/26/18 11:21 02/26/18 12:00 02/26/18 14:00 Temperature 98.1 F Pulse Rate 68 70 70 Respiratory Rate 23 19 Blood Pressure 132/67 Pulse Oximetry 97 02/26/18 16:45 02/26/18 17:00 02/26/18 17:15 Temperature 98.8 F Pulse Rate 81 78 76 Respiratory Rate 16 21 32 H Blood Pressure 144/82 H 126/71 125/73 Pulse Oximetry 95 02/26/18 17:30 02/26/18 17:45 02/26/18 18:00 Temperature Pulse Rate 74 74 74 Respiratory Rate 20 18 18 Blood Pressure 130/75 130/73 135/75 Pulse Oximetry 95 97 97 02/26/18 18:30 02/26/18 18:51 02/26/18 19:21 Temperature Pulse Rate 74 75 76 Respiratory Rate 17 18 24 Blood Pressure 116/63 138/70 106/61 Pulse Oximetry 99 97 97 02/26/18 19:28 02/26/18 20:00 02/26/18 20:21 Temperature 97.5 F L Pulse Rate 74 72 72 Respiratory Rate 20 15 15 Blood Pressure 121/70 121/70 Pulse Oximetry 98 96 96 02/26/18 21:21 02/26/18 22:00 02/26/18 22:21 Temperature Pulse Rate 73 63 64 Respiratory Rate 25 H 16 Blood Pressure 110/65 124/62 Pulse Oximetry 98 98 02/26/18 23:14 02/26/18 23:21 02/27/18 00:00 Temperature Pulse Rate 62 62 60 Respiratory Rate 14 15 14 Blood Pressure 118/63 119/68 Pulse Oximetry 97 96 02/27/18 02:00 02/27/18 04:00 02/27/18 06:00 Temperature 98.6 F Pulse Rate 66 60 59 L Respiratory Rate 16 Blood Pressure 125/63 Pulse Oximetry 94 L 02/27/18 07:47 02/27/18 08:53 Temperature Pulse Rate 62 84 Respiratory Rate 18 18 Blood Pressure Pulse Oximetry Intake & Output 02/26/18 02/27/18 02/27/18 18:59 06:59 18:59 Intake Total 1192 / 1192 1500 / 1500 1000 / 1000 Output Total 800 / 800 300 / 300 Balance 392 / 392 1200 / 1200 1000 / 1000 Weight 72.8 kg Intake: IV 952 / 952 1000 / 1000 1000 / 1000 Heparin/D5W 25,000 U/250 mL 25, 232 / 232 000 unit In 250 ml @ 800 UNITS/ HR 8 mls/hr IV.CONT TITRATE PRN Rx#:[id number] NS Inj 1,000 ML @ 100 mls/hr IV 600 / 600 1000 / 1000 1000 / 1000 .CONT .Q10H [facility] Rx#:[id number] Cardene Inj 25 MG In NS Inj 250 20 / 20 ML @ 10 MG/HR 104 mls/hr IV. CONT TITRATE PRN Rx#:[id number] Levaquin 500 mg Premix Inj 500 100 / 100 mg In 100 ml @ 100 mls/hr IV. SIG Q24H [facility] Rx#:[id number] Oral 240 / 240 500 / 500 Output: Urine 800 / 800 300 / 300 - Constitutional no acute distress - Routine HEENT Exam Head: Present: normocephalic - Routine Neck Exam Present: supple - Routine Respiratory Exam Present: decreased breath sounds, rhonchi, wheezes, crackles, distant breath sounds, diminished air movement - Routine Cardiovascular Exam Present: RRR, S1, S2 - Routine Abdominal Exam Present: soft, normoactive bowel sounds - Routine Extremities Exam Present: full ROM, pulses intact - Routine Skin Exam Present: intact - Routine Neurological Exam Present: alert, oriented X3 - Detailed Neurological Exam Neuro motor strength exam: RUE 3/5 - Routine Psychiatric Exam Present: normal affect, normal thought process Results - Labs Result diagrams: 02/27/18 06:31 02/27/18 06:31 Abnormal lab results 02/26/18 02/26/18 02/27/18 Range/Units 12:55 16:51 06:31 Neut % (Auto) 85.1 H (16.0-70.0) % Neut # (Auto) 8.4 H (1.8-7.7) th/mm3 BUN (7-18) mg/dL Estimated GFR (>89) mL/min POC Glucose 196 H 191 H (68-110) mg/dl Random Glucose (74-106) mg/dL Calcium (8.5-10.1) mg/dL 02/27/18 02/27/18 Range/Units 06:31 08:10 Neut % (Auto) (16.0-70.0) % Neut # (Auto) (1.8-7.7) th/mm3 BUN 27 H (7-18) mg/dL Estimated GFR 82 L (>89) mL/min POC Glucose 169 H (68-110) mg/dl Random Glucose 176 H (74-106) mg/dL Calcium 8.0 L (8.5-10.1) mg/dL Short CBC 02/27/18 Range/Units 06:31 WBC 9.9 (4.0-11.0) th/mm3 Hgb 13.8 (11.6-15.3) gm/dL Hct 40.3 (35.0-46.0) % Plt Count 188 (150-450) th/mm3 BMP 02/27/18 06:31 Sodium 137 Potassium 3.9 Chloride 103 D Carbon Dioxide 26.2 BUN 27 H Creatinine 0.70 Calcium 8.0 L - Imaging Impressions Chest X-Ray 02/27/18 06:00 CONCLUSION: Cardiomegaly and findings of vascular congestion without overt failure. This is new when compared with the prior exam. Caprini VTE Risk Assessment Caprini VTE Risk Assessment: Moderate/High Risk (score >= 2) Caprini Risk Assessment Model: Point Value = 1 Point Value = 2 Point Value = 3 Point Value = 5 Age 41-60 Minor surgery BMI > 25 kg/m2 Swollen legs Varicose veins or History of unexplained or recurrent spontaneous Oral contraceptives or hormone replacement Sepsis (< 1 month) Serious lung disease, including pneumonia (< 1 month) Abnormal pulmonary function Acute myocardial infarction Congestive heart failure (< 1 month) History of inflammatory bowel disease Medical patient at bed rest Age 61-74 Arthroscopic surgery Major open surgery (> 45 min) Laparoscopic surgery (> 45 min) Malignancy Confined to bed (> 72 hours) Immobilizing plaster cast Central venous access Age >= 75 History of VTE Family history of VTE Factor V Leiden Prothrombin [id number] Lupus anticoagulant Anticardiolipin antibodies Elevated serum homocysteine Heparin-induced thrombocytopenia Other congenital or acquired thrombophilia Stroke (< 1 month) Elective arthroplasty Hip, pelvis, or leg fracture Acute spinal cord injury (< 1 month) Prophylaxis Regimen: Total Risk Factor Score Risk Level Prophylaxis Regimen 0-1 Low Early ambulation 2 Moderate Order ONE of the following: *Sequential Compression Device (SCD) *Heparin 5000 units SQ BID 3-4 Higher Order ONE of the following medications: *Heparin 5000 units SQ TID *Enoxaparin/Lovenox 40 mg SQ daily (WT < 150 kg, CrCl > 30 mL/min) *Enoxaparin/Lovenox 30 mg SQ daily (WT < 150 kg, CrCl > 10-29 mL/min) *Enoxaparin/Lovenox 30 mg SQ BID (WT < 150 kg, CrCl > 30 mL/min) AND/OR *Sequential Compression Device (SCD) 5 or more Highest Order ONE of the following medications: *Heparin 5000 units SQ TID (Preferred with Epidurals) *Enoxaparin/Lovenox 40 mg SQ daily (WT < 150 kg, CrCl > 30 mL/min) *Enoxaparin/Lovenox 30 mg SQ daily (WT < 150 kg, CrCl > 10-29 mL/min) *Enoxaparin/Lovenox 30 mg SQ BID (WT < 150 kg, CrCl > 30 mL/min) AND *Sequential Compression Device (SCD) Assessment and Plan - Assessment (1) Non-ST elevation (NSTEMI) myocardial infarction Code(s): I21.4 - Non-ST elevation (NSTEMI) myocardial infarction Status: Acute Plan: See orders. Transfer out of ICU if remains stable this am. am labs. dc home soon. (2) Respiratory failure Code(s): J96.90 - Respiratory failure, unspecified, unspecified whether with hypoxia or hypercapnia Status: Acute (3) Hypertension Code(s): I10 - Essential (primary) hypertension Status: Chronic (4) SIRS (systemic inflammatory response syndrome) Code(s): R65.10 - Systemic inflammatory response syndrome (SIRS) of non- infectious origin without acute organ dysfunction Status: Acute (5) CHF exacerbation Code(s): I50.9 - Heart failure, unspecified Status: Acute (6) Shortness of breath Code(s): R06.02 - Shortness of breath Status: Chronic (7) Debility Code(s): R53.81 - Other malaise Status: Chronic (8) Paroxysmal atrial fibrillation Code(s): I48.0 - Paroxysmal atrial fibrillation Status: Chronic (9) Endotracheally intubated Code(s): Z97.8 - Presence of other specified devices Status: Acute (10) COPD (chronic obstructive pulmonary disease) with acute bronchitis Code(s): J44.0 - Chronic obstructive pulmonary disease with acute lower respiratory infection; J20.9 - Acute bronchitis, unspecified Status: Acute (11) Diabetes Code(s): E11.9 - Type 2 diabetes mellitus without complications Status: Chronic (12) H/O cardiac catheterization Code(s): Z98.890 - Other specified postprocedural states Status: Acute (13) CAD (coronary artery disease) Code(s): I25.10 - Atherosclerotic heart disease of [place] coronary artery without angina pectoris Status: Chronic (14) Hypertension Code(s): I10 - Essential (primary) hypertension Status: Chronic (15) CHF (congestive heart failure) Code(s): I50.9 - Heart failure, unspecified Status: Chronic (3) Hypertension Qualifiers: Hypertension type: essential hypertension Qualified Code(s): I10 - Essential (primary) hypertension (15) CHF (congestive heart failure) Qualifiers: Heart failure type: unspecified Heart failure chronicity: unspecified Qualified Code(s): I50.9 - Heart failure, unspecified
--- NOTE | 2018-02-27 11:55 | P.PN ---
Subjective Interval history: Alert and breathing better. No fever. on O2 2 L. Good output. Cardiac Eval noted. Physical Exam Vital signs: Vital Signs 02/26/18 12:00 02/26/18 14:00 02/26/18 16:45 Temperature 98.1 F 98.8 F Pulse Rate 70 70 81 Respiratory Rate 19 16 Blood Pressure 132/67 144/82 H Pulse Oximetry 97 02/26/18 17:00 02/26/18 17:15 02/26/18 17:30 Temperature Pulse Rate 78 76 74 Respiratory Rate 21 32 H 20 Blood Pressure 126/71 125/73 130/75 Pulse Oximetry 95 95 02/26/18 17:45 02/26/18 18:00 02/26/18 18:30 Temperature Pulse Rate 74 74 74 Respiratory Rate 18 18 17 Blood Pressure 130/73 135/75 116/63 Pulse Oximetry 97 97 99 02/26/18 18:51 02/26/18 19:21 02/26/18 19:28 Temperature Pulse Rate 75 76 74 Respiratory Rate 18 24 20 Blood Pressure 138/70 106/61 Pulse Oximetry 97 97 98 02/26/18 20:00 02/26/18 20:21 02/26/18 21:21 Temperature 97.5 F L Pulse Rate 72 72 73 Respiratory Rate 15 15 25 H Blood Pressure 121/70 121/70 110/65 Pulse Oximetry 96 96 98 02/26/18 22:00 02/26/18 22:21 02/26/18 23:14 Temperature Pulse Rate 63 64 62 Respiratory Rate 16 14 Blood Pressure 124/62 Pulse Oximetry 98 02/26/18 23:21 02/27/18 00:00 02/27/18 02:00 Temperature Pulse Rate 62 60 66 Respiratory Rate 15 14 Blood Pressure 118/63 119/68 Pulse Oximetry 97 96 02/27/18 04:00 02/27/18 06:00 02/27/18 07:47 Temperature 98.6 F Pulse Rate 60 59 L 62 Respiratory Rate 16 18 Blood Pressure 125/63 Pulse Oximetry 94 L 02/27/18 08:00 02/27/18 08:53 02/27/18 10:00 Temperature 97.8 F Pulse Rate 62 84 58 L Respiratory Rate 17 18 Blood Pressure 126/79 Pulse Oximetry 97 Intake & Output 02/26/18 02/27/18 02/27/18 18:59 06:59 18:59 Intake Total 1192 / 1192 1500 / 1500 1300 / 1300 Output Total 800 / 800 300 / 300 Balance 392 / 392 1200 / 1200 1300 / 1300 Weight 72.8 kg Intake: IV 952 / 952 1000 / 1000 1300 / 1300 Heparin/D5W 25,000 U/250 mL 25, 232 / 232 000 unit In 250 ml @ 800 UNITS/ HR 8 mls/hr IV.CONT TITRATE PRN Rx#:[id number] NS Inj 1,000 ML @ 100 mls/hr IV 600 / 600 1000 / 1000 1300 / 1300 .CONT .Q10H [facility] Rx#:[id number] Cardene Inj 25 MG In NS Inj 250 20 / 20 ML @ 10 MG/HR 104 mls/hr IV. CONT TITRATE PRN Rx#:[id number] Levaquin 500 mg Premix Inj 500 100 / 100 mg In 100 ml @ 100 mls/hr IV. SIG Q24H [facility] Rx#:[id number] Oral 240 / 240 500 / 500 Output: Urine 800 / 800 300 / 300 - Constitutional no acute distress - Routine HEENT Exam Head: Present: normocephalic, atraumatic Eye: Present: PERRL ENT: Present: mucous membranes moist - Routine Neck Exam Present: supple, full ROM, lymphadenopathy Comments: No lymphadenopathy - Routine Respiratory Exam Present: prolonged expiratory phase, wheezes, distant breath sounds - Routine Cardiovascular Exam Present: RRR, S1, S2 - Routine Abdominal Exam Present: soft, organomegaly - Routine Extremities Exam Present: edema, full ROM - Routine Skin Exam Present: intact, lesions - Routine Neurological Exam Present: alert, oriented X3, CN II-XII intact, sensory deficit, motor deficit, hearing grossly intact - Routine Psychiatric Exam Present: normal affect, cooperative - Urinary Catheter Management Indwelling Urethral Catheter Cath placed during this visit: yes, but has since been removed by the nurse Reason for continuing: Continue criteria not met Insertion date: 02/23/18 Insertion time: 11:46 Removal date: 02/24/18 Removal time: 10:30 Results - Labs CBC & Chem 7: 02/27/18 06:31 02/27/18 06:31 Laboratory Results - last 24 hr 02/26/18 02/26/18 02/27/18 12:55 16:51 06:31 WBC 9.9 RBC 4.80 Hgb 13.8 Hct 40.3 MCV 84.1 MCH 28.7 MCHC 34.1 RDW 15.5 Plt Count 188 MPV 8.3 Neut % (Auto) 85.1 H Lymph % (Auto) 9.8 Adams % (Auto) 5.0 Eos % (Auto) 0.0 Baso % (Auto) 0.1 Neut # (Auto) 8.4 H Lymph # (Auto) 1.0 Adams # (Auto) 0.5 Eos # (Auto) 0.0 Baso # (Auto) 0.0 WBC Differential . Differential Comment Auto diff final Sodium Potassium Chloride Carbon Dioxide Anion Gap BUN Creatinine Estimated GFR POC Glucose 196 H 191 H Random Glucose Calcium Phosphorus Magnesium 02/27/18 02/27/18 06:31 08:10 WBC RBC Hgb Hct MCV MCH MCHC RDW Plt Count MPV Neut % (Auto) Lymph % (Auto) Adams % (Auto) Eos % (Auto) Baso % (Auto) Neut # (Auto) Lymph # (Auto) Adams # (Auto) Eos # (Auto) Baso # (Auto) WBC Differential Differential Comment Sodium 137 Potassium 3.9 Chloride 103 D Carbon Dioxide 26.2 Anion Gap 8 BUN 27 H Creatinine 0.70 Estimated GFR 82 L POC Glucose 169 H Random Glucose 176 H Calcium 8.0 L Phosphorus 3.4 D Magnesium 2.5 Microbiology 02/23/18 14:15 Sputum - Endotracheal Gram Stain - Final 02/23/18 14:15 Sputum - Endotracheal Sputum Culture - Final Aspergillus niger 02/23/18 11:56 Blood - Peripheral Aerobic Blood Culture - Preliminary No growth in 4 days 02/23/18 11:56 Blood - Peripheral Anaerobic Blood Culture - Preliminary No growth in 4 days 02/23/18 11:39 Blood - Peripheral Aerobic Blood Culture - Preliminary No growth in 4 days 02/23/18 11:39 Blood - Peripheral Anaerobic Blood Culture - Preliminary No growth in 4 days - Imaging Impressions Chest X-Ray 02/27/18 06:00 CONCLUSION: Cardiomegaly and findings of vascular congestion without overt failure. This is new when compared with the prior exam. Assessment and Plan - Assessment (1) COPD (chronic obstructive pulmonary disease) with acute bronchitis Code(s): J44.0 - Chronic obstructive pulmonary disease with acute lower respiratory infection; J20.9 - Acute bronchitis, unspecified Status: Acute (2) Hypertension Code(s): I10 - Essential (primary) hypertension Status: Chronic (3) Respiratory failure Code(s): J96.90 - Respiratory failure, unspecified, unspecified whether with hypoxia or hypercapnia Status: Acute (4) Non-ST elevation (NSTEMI) myocardial infarction Code(s): I21.4 - Non-ST elevation (NSTEMI) myocardial infarction Status: Acute (5) CHF exacerbation Code(s): I50.9 - Heart failure, unspecified Status: Acute (6) Shortness of breath Code(s): R06.02 - Shortness of breath Status: Chronic (7) Debility Code(s): R53.81 - Other malaise Status: Chronic (8) Paroxysmal atrial fibrillation Code(s): I48.0 - Paroxysmal atrial fibrillation Status: Chronic - Plan 1. Will leave on O2 2 L N/C 2. D/C BIPAP 3. Continue metoprolol, Enalapril. 4. Duoneb nebs qid. 5. Continue antibiotics.And Heparin. 6. Solumedrol 40 mg IV Q12H 7. Symbicort 160/4.5 mcg 1 Puff BID 8. Transfer to tele (2) Hypertension Qualifiers: Hypertension type: essential hypertension Qualified Code(s): I10 - Essential (primary) hypertension
[2018-02-27] MEDS: Budesonide-Formoterol 160/4.5 MCG 6 GM Inhaler INH SCH ×2 (11:59→20:05)
--- NOTE | 2018-02-27 12:38 | CT ---
EXAM DATE: 02/27/2018 12:02 PM EDT AGE/SEX: 72 years / Female INDICATIONS: Nodule recent episode of respiratory arrest CLINICAL DATA: This is the patient's initial encounter. Patient reports that signs and symptoms have been present for 1 day and indicates a pain score of 0/10. MEDICAL/SURGICAL HISTORY: Chronic obstructive pulmonary disease. Congestive heart failure. Hypert ension. Diabetes A-fib cardiac Appendectomy. CABG. RADIATION DOSE: 9.94 CTDI (mGy) COMPARISON: [facility], CHEST 1V SINGLE AP, 02/27/2018. . TECHNIQUE: Multiple contiguous axial images were obtained through the chest during bolus infusion of 70 ml Omnipaque 350 (iohexol) nonionic water-soluble contrast as a single exam dose. Images were obtained in suspended respiration using multiple row detector helical technique. Using automated exp osure control and adjustment of the mA and/or kV according to patient size, radiation dose was kept a s low as reasonably achievable to obtain optimal diagnostic quality images. DICOM format image data is available electronically for review and comparison. FINDINGS: Atherosclerotic calcification of the aorta and coronary arteries identified. There is no adenopathy. Review of lung windows demonstrate minimal parenchymal infiltrate in the right and left upper lobes w ith more confluent consolidation in both lower lobes posteriorly. There are degenerative changes of t he spine. CONCLUSION: 1. Bilateral pulmonary infiltrates. Electronically signed by: Song Cortes MD 02/27/2018 12:37 PM EDT
[2018-02-27] MEDS: Levofloxacin 500 mg Premix Inj 500 MG/100 ML PIGGYBACK IV.SIG SCH (14:22)
[2018-02-28] MEDS: Morphine Inj 4 MG/ML Vial IV.PUSH PRN ×5 (00:37→14:04)
[2018-02-28] MEDS: Chlorhexidine Gluconate 2% 1 Pack (2 Cloths) TOPICAL SCH (04:00)
[2018-02-28] MEDS: Ranolazine 500 MG 12HR ER Tablet PO SCH ×2 (05:42→17:51)
[2018-02-28] MEDS: Isosorbide Mononitrate 60 MG ER 24HR Tablet (Imdur) PO SCH (06:27)
[2018-02-28] MEDS: Insulin NovoLOG Aspart Correctional Sugar Inj SQ SCH ×3 (07:55→17:51)
[2018-02-28 09:39] LABS: Baso % (Auto) 0.1 % (0.0-2.0); Hemoglobin 14.3 gm/dL (11.6-15.3); Lymph # (Auto) 0.6 th/mm3 (1.0-4.8); Lymph % (Auto) 3.5 % (9.0-44.0); Mean Corpuscular HGB Conc 33.2 % (32.0-36.0); Mean Corpuscular Hemoglobin 28.8 pg (27.0-34.0); Mean Corpuscular Volume 86.8 fL (80.0-100.0); Mean Platelet Volume 7.9 fL (7.0-11.0); Mono # (Auto) 0.6 th/mm3 (0.0-0.9); Mono % (Auto) 3.3 % (0.0-8.0); Neut % (Auto) 93.1 % (16.0-70.0); Platelet Count 202 th/mm3 (150-450); Red Blood Count 4.96 mil/mm3 (4.00-5.30); Red Cell Distribution Width 15.2 % (11.6-17.2); White Blood Count 17.1 th/mm3 (4.0-11.0)
[2018-02-28] MEDS: Metoprolol Tartrate 25 MG Tablet PO SCH (09:39)
[2018-02-28] MEDS: Furosemide 40 MG Tablet PO SCH (09:39)
[2018-02-28] MEDS: Sodium Chloride 0.9% 2 ML Flush BID IV.FLUSH SCH (09:40)
[2018-02-28] MEDS: MethylPREDNISolone Sod Succinate Inj 40 MG/ML Vial IV.PUSH SCH (09:40)
[2018-02-28] MEDS: Senna/Docusate Sodium 8.6/50 MG Tablet PO SCH (09:40)
[2018-02-28] MEDS: Budesonide-Formoterol 160/4.5 MCG 6 GM Inhaler INH SCH (09:40)
[2018-02-28 09:59] LABS: Calcium 8.2 mg/dL (8.5-10.1); Carbon Dioxide 26.4 meq/L (21.0-32.0); Potassium 3.9 meq/L (3.5-5.1)
--- NOTE | 2018-02-28 11:41 | P.PN ---
Subjective Interval history: Better today.On o2 [address] chest No chest pains. Physical Exam Vital signs: Vital Signs 02/27/18 12:00 02/27/18 14:00 02/27/18 16:00 Temperature 98.8 F 98.8 F Pulse Rate 63 71 67 Respiratory Rate 18 25 H Blood Pressure 113/62 108/66 Pulse Oximetry 96 95 02/27/18 18:00 02/27/18 19:29 02/27/18 20:00 Temperature 98.9 F Pulse Rate 68 66 Respiratory Rate 16 27 H Blood Pressure 130/76 Pulse Oximetry 97 02/27/18 20:17 02/27/18 22:00 02/27/18 22:34 Temperature Pulse Rate 59 L Respiratory Rate 19 Blood Pressure Pulse Oximetry 97 02/27/18 23:29 02/28/18 00:00 02/28/18 01:10 Temperature 98.6 F Pulse Rate 60 Respiratory Rate 19 15 18 Blood Pressure 121/65 Pulse Oximetry 96 02/28/18 04:00 02/28/18 06:09 02/28/18 08:00 Temperature 98.6 F Pulse Rate 65 57 L Respiratory Rate 11 L 19 Blood Pressure 119/57 L Pulse Oximetry 96 98 Intake & Output 02/27/18 02/28/18 02/28/18 18:59 06:59 18:59 Intake Total 1840 / 1840 250 / 250 Output Total 1500 / 1500 Balance 340 / 340 250 / 250 Weight 73.2 kg Intake: IV 1400 / 1400 NS Inj 1,000 ML @ 100 mls/hr IV 1300 / 1300 .CONT .Q10H [facility] Rx#:[id number] Levaquin 500 mg Premix Inj 500 100 / 100 mg In 100 ml @ 100 mls/hr IV. SIG Q24H R[facility] Rx#:[id number] Oral 440 / 440 250 / 250 Output: Urine 1500 / 1500 Other: # Voids 1 Date of Last Bowel Movement 02/28/18 # Bowel Movements 1 - Constitutional no acute distress - Routine HEENT Exam Head: Present: normocephalic, atraumatic ENT: Present: mucous membranes moist - Routine Neck Exam Present: supple, full ROM - Routine Respiratory Exam Present: wheezes, distant breath sounds - Routine Cardiovascular Exam Present: RRR, S1, S2 - Routine Abdominal Exam Present: soft, normoactive bowel sounds - Routine Extremities Exam Present: full ROM, pulses intact - Routine Skin Exam Present: intact, pallor - Routine Neurological Exam Present: alert, oriented X3, normal reflexes - Routine Psychiatric Exam Present: normal thought process - Urinary Catheter Management Indwelling Urethral Catheter Cath placed during this visit: yes, but has since been removed by the nurse Reason for continuing: Continue criteria not met Insertion date: 02/23/18 Insertion time: 11:46 Removal date: 02/24/18 Removal time: 10:30 Results - Labs CBC & Chem 7: 02/28/18 09:09 02/28/18 09:09 Laboratory Results - last 24 hr 02/27/18 02/27/18 02/28/18 18:04 20:21 07:54 WBC RBC Hgb Hct MCV MCH MCHC RDW Plt Count MPV Neut % (Auto) Lymph % (Auto) [place] % (Auto) Eos % (Auto) Baso % (Auto) Neut # (Auto) Lymph # (Auto) [place] # (Auto) Eos # (Auto) Baso # (Auto) WBC Differential Differential Comment Sodium Potassium Chloride Carbon Dioxide Anion Gap BUN Creatinine Estimated GFR POC Glucose 202 H 239 H 161 H Random Glucose Calcium 02/28/18 02/28/18 09:09 09:09 WBC 17.1 H RBC 4.96 Hgb 14.3 Hct 43.0 MCV 86.8 MCH 28.8 MCHC 33.2 RDW 15.2 Plt Count 202 MPV 7.9 Neut % (Auto) 93.1 H Lymph % (Auto) 3.5 L [place] % (Auto) 3.3 Eos % (Auto) 0.0 Baso % (Auto) 0.1 Neut # (Auto) 16.0 H Lymph # (Auto) 0.6 L [place] # (Auto) 0.6 Eos # (Auto) 0.0 Baso # (Auto) 0.0 WBC Differential . Differential Comment Auto diff final Sodium 136 Potassium 3.9 Chloride 101 Carbon Dioxide 26.4 Anion Gap 9 BUN 27 H Creatinine 0.87 Estimated GFR 64 L POC Glucose Random Glucose 158 H Calcium 8.2 L Microbiology 02/23/18 11:56 Blood - Peripheral Aerobic Blood Culture - Final No growth in 5 days 02/23/18 11:56 Blood - Peripheral Anaerobic Blood Culture - Final No growth in 5 days 02/23/18 11:39 Blood - Peripheral Aerobic Blood Culture - Final No growth in 5 days 02/23/18 11:39 Blood - Peripheral Anaerobic Blood Culture - Final No growth in 5 days 02/27/18 16:50 Urine - Clean Catch Urine Streptococcus pneumoniae Antigen ( M - Final Presumptive negative for streptococcus pneumoniae antigen, suggesting no current or recent infection. Infection due to Streptococcus pneumoniae cannot be ruled out since the antigen present in the sample may be below the detection limit of the test. 02/27/18 16:50 Urine - Clean Catch Urine Legionella Antigen - Final Presumptive negative for Legionella pneumophila serogroup 1 antigen in urine, suggesting no recent or recurrent infection. Infection due to Legionella cannot be ruled out since other serogroups and species may cause disease, antigen may not be present in urine in early infection, and the level of antigen present in the urine may be below the detection limit of the test. 02/23/18 14:15 Sputum - Endotracheal Gram Stain - Final 02/23/18 14:15 Sputum - Endotracheal Sputum Culture - Final Aspergillus niger - Imaging Impressions Chest CT 02/27/18 00:00 CONCLUSION: 1. Bilateral pulmonary infiltrates. Assessment and Plan - Assessment (1) COPD (chronic obstructive pulmonary disease) with acute bronchitis Code(s): J44.0 - Chronic obstructive pulmonary disease with acute lower respiratory infection; J20.9 - Acute bronchitis, unspecified Status: Acute (2) Hypertension Code(s): I10 - Essential (primary) hypertension Status: Chronic (3) Respiratory failure Code(s): J96.90 - Respiratory failure, unspecified, unspecified whether with hypoxia or hypercapnia Status: Acute (4) Non-ST elevation (NSTEMI) myocardial infarction Code(s): I21.4 - Non-ST elevation (NSTEMI) myocardial infarction Status: Acute (5) CHF exacerbation Code(s): I50.9 - Heart failure, unspecified Status: Acute (6) Shortness of breath Code(s): R06.02 - Shortness of breath Status: Chronic (7) Debility Code(s): R53.81 - Other malaise Status: Chronic (8) Paroxysmal atrial fibrillation Code(s): I48.0 - Paroxysmal atrial fibrillation Status: Chronic - Plan 1. Cont on O2 2 L N/C 2. CBC,BMP in am 3. Continue metoprolol, Enalapril. 4. Duoneb nebs qid. 5. Continue antibiotics.And switch to PO 6. D/C Solumedrol 7. Symbicort 160/4.5 mcg 1 Puff BID 8. Add prednisone 20 mg BID and taper (2) Hypertension Qualifiers: Hypertension type: essential hypertension Qualified Code(s): I10 - Essential (primary) hypertension
--- NOTE | 2018-02-28 17:22 | P.PNFP ---
Results - Labs Result diagrams: 02/28/18 09:09 02/28/18 09:09 Abnormal lab results 02/27/18 02/27/18 02/28/18 Range/Units 18:04 20:21 07:54 WBC (4.0-11.0) th/mm3 Neut % (Auto) (16.0-70.0) % Lymph % (Auto) (9.0-44.0) % Neut # (Auto) (1.8-7.7) th/mm3 Lymph # (Auto) (1.0-4.8) th/mm3 BUN (7-18) mg/dL Estimated GFR (>89) mL/min POC Glucose 202 H 239 H 161 H (68-110) mg/dl Random Glucose (74-106) mg/dL Calcium (8.5-10.1) mg/dL 02/28/18 02/28/18 Range/Units 09:09 09:09 WBC 17.1 H (4.0-11.0) th/mm3 Neut % (Auto) 93.1 H (16.0-70.0) % Lymph % (Auto) 3.5 L (9.0-44.0) % Neut # (Auto) 16.0 H (1.8-7.7) th/mm3 Lymph # (Auto) 0.6 L (1.0-4.8) th/mm3 BUN 27 H (7-18) mg/dL Estimated GFR 64 L (>89) mL/min POC Glucose (68-110) mg/dl Random Glucose 158 H (74-106) mg/dL Calcium 8.2 L (8.5-10.1) mg/dL Short CBC 02/28/18 Range/Units 09:09 WBC 17.1 H (4.0-11.0) th/mm3 Hgb 14.3 (11.6-15.3) gm/dL Hct 43.0 (35.0-46.0) % Plt Count 202 (150-450) th/mm3 BMP 02/28/18 09:09 Sodium 136 Potassium 3.9 Chloride 101 Carbon Dioxide 26.4 BUN 27 H Creatinine 0.87 Calcium 8.2 L Physical Exam Vital signs: Vital Signs 02/27/18 18:00 02/27/18 19:29 02/27/18 20:00 Temperature 98.9 F Pulse Rate 68 66 Respiratory Rate 16 27 H Blood Pressure 130/76 Pulse Oximetry 97 02/27/18 20:17 02/27/18 22:00 02/27/18 22:34 Temperature Pulse Rate 59 L Respiratory Rate 19 Blood Pressure Pulse Oximetry 97 02/27/18 23:29 02/28/18 00:00 02/28/18 01:10 Temperature 98.6 F Pulse Rate 60 Respiratory Rate 19 15 18 Blood Pressure 121/65 Pulse Oximetry 96 02/28/18 04:00 02/28/18 06:09 02/28/18 08:00 Temperature 98.6 F Pulse Rate 65 57 L Respiratory Rate 11 L 19 Blood Pressure 119/57 L Pulse Oximetry 96 98 02/28/18 12:00 02/28/18 16:00 Temperature Pulse Rate 61 63 Respiratory Rate Blood Pressure Pulse Oximetry Intake & Output 02/27/18 02/28/18 02/28/18 18:59 06:59 18:59 Intake Total 1840 / 1840 250 / 250 Output Total 1500 / 1500 Balance 340 / 340 250 / 250 Weight 73.2 kg Intake: IV 1400 / 1400 NS Inj 1,000 ML @ 100 mls/hr IV 1300 / 1300 .CONT .Q10H [facility] Rx#:[id number] Levaquin 500 mg Premix Inj 500 100 / 100 mg In 100 ml @ 100 mls/hr IV. SIG Q24H [facility] Rx#:[id number] Oral 440 / 440 250 / 250 Output: Urine 1500 / 1500 Other: # Voids 1 Date of Last Bowel Movement 02/28/18 02/28/18 # Bowel Movements 1 - Urinary Catheter Management Indwelling Urethral Catheter Cath placed during this visit: yes, but has since been removed by the nurse Reason for continuing: Continue criteria not met Insertion date: 02/23/18 Insertion time: 11:46 Removal date: 02/24/18 Removal time: 10:30 Assessment and Plan - Assessment (1) Non-ST elevation (NSTEMI) myocardial infarction Code(s): I21.4 - Non-ST elevation (NSTEMI) myocardial infarction Status: Acute (2) Respiratory failure Code(s): J96.90 - Respiratory failure, unspecified, unspecified whether with hypoxia or hypercapnia Status: Acute (3) Hypertension Code(s): I10 - Essential (primary) hypertension Status: Chronic (4) SIRS (systemic inflammatory response syndrome) Code(s): R65.10 - Systemic inflammatory response syndrome (SIRS) of non- infectious origin without acute organ dysfunction Status: Resolved (5) CHF exacerbation Code(s): I50.9 - Heart failure, unspecified Status: Acute (6) Shortness of breath Code(s): R06.02 - Shortness of breath Status: Chronic (7) Debility Code(s): R53.81 - Other malaise Status: Chronic (8) Paroxysmal atrial fibrillation Code(s): I48.0 - Paroxysmal atrial fibrillation Status: Chronic (9) Endotracheally intubated Code(s): Z97.8 - Presence of other specified devices Status: Resolved (10) COPD (chronic obstructive pulmonary disease) with acute bronchitis Code(s): J44.0 - Chronic obstructive pulmonary disease with acute lower respiratory infection; J20.9 - Acute bronchitis, unspecified Status: Acute (11) Diabetes Code(s): E11.9 - Type 2 diabetes mellitus without complications Status: Chronic (12) H/O cardiac catheterization Code(s): Z98.890 - Other specified postprocedural states Status: Acute (13) CAD (coronary artery disease) Code(s): I25.10 - Atherosclerotic heart disease of [place] coronary artery without angina pectoris Status: Chronic (14) Hypertension Code(s): I10 - Essential (primary) hypertension Status: Chronic (15) CHF (congestive heart failure) Code(s): I50.9 - Heart failure, unspecified Status: Chronic (3) Hypertension Qualifiers: Hypertension type: essential hypertension Qualified Code(s): I10 - Essential (primary) hypertension (15) CHF (congestive heart failure) Qualifiers: Heart failure type: unspecified Heart failure chronicity: unspecified Qualified Code(s): I50.9 - Heart failure, unspecified
[2018-02-28] MEDS ORDERED: Non-Formulary Drug (Promethazine [Promethazine] 12.5 MG) PO PRN (17:46)
--- NOTE | 2018-02-28 17:56 | P.DS ---
Date of admission: 02/23/18 13:00 Primary care physician: Yohan Davison MD Attending physician on discharge: Yohan Davison Anticipated date of discharge: 02/28/18 Brief History from admission: admit with repsiratory failure. intubated. underwent cardiac cath. in ICU now. discussed with nursing, request out of ICu and off IVF's. PT c/o cougha and congestion. requests discharge. has o2 at home. back to baseline. agrees to see me in my office or sunday Patient update on day of discharge: doing well. requests dc now DS: Diagnosis - Discharge Diagnosis (1) Non-ST elevation (NSTEMI) myocardial infarction Status: Acute (2) Respiratory failure Status: Acute (3) Hypertension Status: Chronic (4) SIRS (systemic inflammatory response syndrome) Status: Resolved (5) CHF exacerbation Status: Acute (6) Shortness of breath Status: Chronic (7) Debility Status: Chronic (8) Paroxysmal atrial fibrillation Status: Chronic (9) Endotracheally intubated Status: Resolved (10) COPD (chronic obstructive pulmonary disease) with acute bronchitis Status: Acute (11) Diabetes Status: Chronic (12) H/O cardiac catheterization Status: Acute (13) CAD (coronary artery disease) Status: Chronic (14) Hypertension Status: Chronic (15) CHF (congestive heart failure) Status: Chronic DS: Summary Hospital Course: admitted with respir failure. had mi. underwent cath. pt in icu. tx for hcap, given iv abx. seen by pulmonary and whizzer hand. asking for dc today. has o2 at home. - Time Spent with Patient Total time spent providing and/or coordinating discharge services: Greater than 30 minutes Exam Vital signs: Vital Signs 02/27/18 18:00 02/27/18 19:29 02/27/18 20:00 Temperature 98.9 F Pulse Rate 68 66 Respiratory Rate 16 27 H Blood Pressure 130/76 Pulse Oximetry 97 02/27/18 20:17 02/27/18 22:00 02/27/18 22:34 Temperature Pulse Rate 59 L Respiratory Rate 19 Blood Pressure Pulse Oximetry 97 02/27/18 23:29 02/28/18 00:00 02/28/18 01:10 Temperature 98.6 F Pulse Rate 60 Respiratory Rate 19 15 18 Blood Pressure 121/65 Pulse Oximetry 96 02/28/18 04:00 02/28/18 06:09 02/28/18 08:00 Temperature 98.6 F Pulse Rate 65 57 L Respiratory Rate 11 L 19 Blood Pressure 119/57 L Pulse Oximetry 96 98 02/28/18 12:00 02/28/18 16:00 Temperature Pulse Rate 61 63 Respiratory Rate Blood Pressure Pulse Oximetry Intake & Output 02/27/18 02/28/18 02/28/18 18:59 06:59 18:59 Intake Total 1840 / 1840 250 / 250 Output Total 1500 / 1500 Balance 340 / 340 250 / 250 Weight 73.2 kg Intake: IV 1400 / 1400 NS Inj 1,000 ML @ 100 mls/hr IV 1300 / 1300 .CONT .Q10H [facility] Rx#:[id number] Levaquin 500 mg Premix Inj 500 100 / 100 mg In 100 ml @ 100 mls/hr IV. SIG Q24H [facility] Rx#:[id number] Oral 440 / 440 250 / 250 Output: Urine 1500 / 1500 Other: # Voids 1 Date of Last Bowel Movement 02/28/18 02/28/18 # Bowel Movements 1 - Constitutional no acute distress - Routine HEENT Exam Head: Present: normocephalic Eye: Present: EOMI - Routine Neck Exam Present: supple - Routine Respiratory Exam Present: CTA bilaterally - Routine Cardiovascular Exam Present: RRR, S1, S2 - Routine Abdominal Exam Present: soft, normoactive bowel sounds - Routine Extremities Exam Present: normal capillary refill - Routine Skin Exam Present: intact - Routine Neurological Exam Present: alert, oriented X3, normal reflexes, normal tone Results Procedures completed during hospitalization: cath Labs on day of discharge: Labs from last 24 hours 02/28/18 02/28/18 02/28/18 09:09 09:09 07:54 WBC 17.1 H RBC 4.96 Hgb 14.3 Hct 43.0 MCV 86.8 MCH 28.8 MCHC 33.2 RDW 15.2 Plt Count 202 MPV 7.9 Neut % (Auto) 93.1 H Lymph % (Auto) 3.5 L [place] % (Auto) 3.3 Eos % (Auto) 0.0 Baso % (Auto) 0.1 Neut # (Auto) 16.0 H Lymph # (Auto) 0.6 L [place] # (Auto) 0.6 Eos # (Auto) 0.0 Baso # (Auto) 0.0 WBC Differential . Differential Comment Auto diff final Sodium 136 Potassium 3.9 Chloride 101 Carbon Dioxide 26.4 Anion Gap 9 BUN 27 H Creatinine 0.87 Estimated GFR 64 L POC Glucose 161 H Random Glucose 158 H Calcium 8.2 L 02/27/18 02/27/18 20:21 18:04 WBC RBC Hgb Hct MCV MCH MCHC RDW Plt Count MPV Neut % (Auto) Lymph % (Auto) [place] % (Auto) Eos % (Auto) Baso % (Auto) Neut # (Auto) Lymph # (Auto) [place] # (Auto) Eos # (Auto) Baso # (Auto) WBC Differential Differential Comment Sodium Potassium Chloride Carbon Dioxide Anion Gap BUN Creatinine Estimated GFR POC Glucose 239 H 202 H Random Glucose Calcium - Impressions ITS Impressions Chest CT 02/27/18 00:00 CONCLUSION: 1. Bilateral pulmonary infiltrates. Chest X-Ray 02/27/18 06:00 CONCLUSION: Cardiomegaly and findings of vascular congestion without overt failure. This is new when compared with the prior exam. Discharge Plan - Discharge Disposition Patient Disposition: /[facility] - Discharge Condition Condition: Critical - Discharge Order Discharge Orders: Discharge Order (Routine); Ordered 02/28/18 Ordered By: Yohan Davison Cardiology Clear for Discharge (Routine); Ordered 02/27/18 Ordered By: Kenneth Bales Hospitalist Clear for Discharge (Routine); Ordered 02/28/18 Ordered By: Yohan Davison - Discharge Details Anticipated Discharge Date: 02/23/18 - Physicians Team Primary Care Provider: Yohan Davison Attending Provider: Sincere Garcia Other Providers: Ben Sutherland MD ; Kenneth Bales MD ; Yohan Davison MD
[2018-02-28 18:01] VITALS: BP 101/55; PULSE 55; RESP 12; TEMP 98.4; O2SAT 94
--- NOTE | 2018-02-28 18:06 | P.DCO ---
- Diagnosis (1) COPD (chronic obstructive pulmonary disease) with acute bronchitis Status: Acute (2) Respiratory failure Status: Acute (3) Endotracheally intubated Status: Resolved (4) CHF exacerbation Status: Acute (5) Dizziness Status: Acute (6) H/O cardiac catheterization Status: Acute (7) History of appendectomy Status: Acute (8) Hypotension Status: Acute - Physical Therapy Order: Evaluate and treat, Improve ambulation, Strength and gait training - Occupational Therapy Order: Evaluate and treat, Improve ADL, Gross motor coordination, Fine motor coordination - Home Health Nursing Order: Medical education, Signs/symptoms of disease process, CHF education, Oxygen administration education, Medication education-adverse effect, Nursing assessment with vital signs, Telehealth - Home Health Aide Order: To assist in: Bathing and personal care, lead quality control technician and meal prep - Sales Representative [employer] Order: To evaluate: Living conditions/environment, Support services Order: To provide: Long range planning, Community services - Case Management Consult Yes - Certification I have seen patient Olive Laws on 02/28/18. My clinical findings support the need for the requested home health care services because: Limited mobility due to disease progression, Patient has SOB, Deconditioned with increased weakness, Medication compliance is questionable, Limited ability to care for self, Need for psychosocial assistance, Impaired cognition/judgement , High risk of falls, Infection with risk of complications I certify that my clinical findings support that this patient is homebound because: Impaired cognitive ability/safety, Hx COPD - exertion dyspnea/weakness, Unsteady gait/balance, Unsafe to leave home unassisted, Need for psychosocial assistance, Unable to use public transportation, Poor cardiac reserve
[2018-02-28] MEDS ORDERED: predniSONE 20 MG Tablet PO SCH (21:00)
[2018-03-01] MEDS ORDERED: PREDNISONE 20 MG PO SCH (09:00)
[2018-03-01] MEDS ORDERED: ASPIRIN 81 MG PO SCH (09:00)
[2018-03-01] MEDS ORDERED: Non-Formulary Drug (Potassium Chloride [Potassium Chloride] 20 MEQ) PO SCH (09:00)
== END 2018-02-28 18:40 | disposition home health service (06) ==
LOC: NEPE 11:36 → NEDA 13:00 → HIMC 14:00
PROVIDERS: ADMIT Internal Medicine Critical Care Medicine; ATTEND Internal Medicine Critical Care Medicine